=== PATIENT | female | born 1935 | race Caucasian/White ===

== ENCOUNTER → 2019-04-29 | Outpatient (CLI) | payer MEDICARE, OTHER, SELFPAY ==
[2019-04-25 08:46] VITALS: BMI 23.6
[2019-04-29 15:02] LABS: Hematocrit 37.1 % (37-47); Hemoglobin 11.5 g/dL (12.0-15.0); Mean Corpuscular Hgb 29.5 pg (27.0-32.0); Mean Corpuscular Volume 95.1 fL (81-99); Mean Platelet Vol. 12.8 fl (6.2-12.0); Platelet Count 234 K/mm3 (150-450); RBC Distribution Width CV 12.8 % (11.6-14.6); RBC Distribution Width SD 44.5 fl (35.1-43.9); White Blood Count 6.6 K/mm3 (4.4-11.0)
[2019-04-29 15:23] LABS: Anion Gap 6 (5-15); BUN 39 mg/dL (7-18); BUN/Creat Ratio 24.2 RATIO (10-20); Chloride 106 mmol/L (98-107); Creatinine, Serum 1.61 mg/dL (0.55-1.02); EST Glomerular Filtration Rate 33 mL/min (>60); Est Glom Filt Rate - Afr Amer 39 mL/min (>60); Glucose 76 mg/dL (74-106); Potassium 4.8 mmol/L (3.5-5.1); Sodium Level 139 mmol/L (136-145)
== END | disposition home or self-care (01) ==
LOC: LAB 13:23
PROVIDERS: Family Provider Preventive Medicine Occupational Medicine; PCP Preventive Medicine Occupational Medicine; Referring Provider Internal Medicine Cardiovascular Disease; Visit Provider Internal Medicine Cardiovascular Disease
DX: I48.0 Paroxysmal atrial fibrillation (principal); R55 Syncope and collapse
CPT/HCPCS: 36415; 80048; 85027

== ENCOUNTER 2019-05-05 06:43 | Day surgery (SDC) | payer MEDICARE, OTHER, SELFPAY ==
[2019-04-25 08:46] VITALS: BMI 23.6
[2019-05-02 09:30] VITALS: BMI 23.6
--- NOTE | 2019-05-08 09:59 | CL.IE_ITS ---
Patient: DARRYL MAYERS Study Date: 05/05/2019 Performing: Aakash Springer MD : [id number] Age: 83 Gender: female PROCEDURES PERFORMED [id number] OF LOOP RECORDER INDICATIONS Syncope PROCEDURE DETAILS The patient was brought to the Catheterization Lab in the postabsorptive nonsedated state. Infor med consent was obtained prior to the procedure. Local anesthetic was given subcutaneously to the le ft upper chest area with Lidocaine 2%. Incision was made to the left upper chest. ICM Reveal LINQ was inserted into the pocket. Steri-strips applied to Lt chest area. The patient tolerated the procedur e well. Estimated Blood Loss: 5 ml's IMPLANTED / EX-PLANTED DEVICES IMPLANTED DEVICE(S): ICM Reveal LINQ - Cue Worker: [employer], Model # Med[employer]onic Reveal LINQ [id number] Serial # [id number] DEVICE PARAMETERS CONCLUSIONS / RECOMMENDATIONS Device Conclusions: Successful implantation of a patient activated loop recorder. Device Recommendations: Follow up with Primary Care Physician PROCEDURE MEDICATIONS Versed 1 mg IV Oxygen: 2 L/min via nasal cannula Ancef 1 Gm IV @ 05/05/2019 08:10:53 Signed By Aakash Springer MD On 05/05/2019 08:38:50 Aakash Springer MD
== END 2019-05-05 10:00 | disposition home or self-care (01) ==
LOC: CLSP 06:45
PROVIDERS: Family Provider Preventive Medicine Occupational Medicine; PCP Preventive Medicine Occupational Medicine; Referring Provider Internal Medicine Cardiovascular Disease; Visit Provider Internal Medicine Cardiovascular Disease
DX: R55 Syncope and collapse (principal); I25.10 Atherosclerotic heart disease of native coronary artery without angina pectoris; I48.91 Unspecified atrial fibrillation; I13.0 Hypertensive heart and chronic kidney disease with heart failure and stage 1 through stage 4 chronic kidney disease, or unspecified chronic kidney disease; N18.9 Chronic kidney disease, unspecified; I50.42 Chronic combined systolic (congestive) and diastolic (congestive) heart failure; I27.21 Secondary pulmonary arterial hypertension; E78.5 Hyperlipidemia, unspecified; F32.9 Major depressive disorder, single episode, unspecified; K21.9 Gastro-esophageal reflux disease without esophagitis; E03.9 Hypothyroidism, unspecified; M19.90 Unspecified osteoarthritis, unspecified site; Z86.718 Personal history of other venous thrombosis and embolism; Z86.711 Personal history of pulmonary embolism; Z95.5 Presence of coronary angioplasty implant and graft; Z79.82 Long term (current) use of aspirin; Z79.899 Other long term (current) drug therapy
CPT/HCPCS: 33285; 99152; J7040

== ENCOUNTER → 2020-06-16 06:03 | Outpatient (CLI) | payer MEDICARE, OTHER, SELFPAY ==
[2020-06-03 13:55] VITALS: BMI 22.8
--- NOTE | 2020-06-16 06:05 | ECHOD_ITS ---
Version 2 Reason For Study: CHEST PAIN Procedure This was a 2D Doppler, Color Flow transthoracic echocardiogram. Exam performed in department. Left Ventricle Normal LV size. Sigmoid septum. Left ventricular systolic function is normal. The estimated ejection fraction is 65 %. Stage 1 diastolic dysfunction. No regional wall motion abnormalities noted. Right Ventricle Normal RV size. ICD or pacer leads identified within the right ventricle. Normal systolic function. Atria Normal left atrium. Normal right atrium. Mitral Valve Moderate focal mitral valve calcification of the anterior leaflet. There is moderate mitral annular calcification. Mild (1+) eccentric mitral valve insufficiency. Tricuspid Valve Normal tricuspid valve. Mild to moderate (1-2+) tricuspid valve insufficiency. Pulmonary artery systolic pressure is 50 mmHg. Moderate pulmonary hypertension. Aortic Valve Trisinus/trileaflet aortic valve. Mild (1+) aortic valve insufficiency. Pulmonic Valve Normal pulmonic valve. Great Vessels Normal aortic root. The pulmonary artery is normal size. Normal inferior vena cava. Pericardium/Pleural No pericardial effusion. MMode/2D Measurements & Calculations LVIDd: 3.9 cm IVSd: 0.89 cm Ao root diam: 3.4 cm LVIDs: 2.4 cm LVPWd: 0.91 cm RVDd: 3.9 cm FS: 37.8 % LAV(MOD-bp): 51.1 ml LVAd ap4: 18.4 cm2 SV(MOD-sp4): 31.1 ml LAV(MOD-bp) Indexed: 34.4 ml/m2 EDV(MOD-sp4): 48.3 ml LAV(MOD-sp2): 49.3 ml EDV(sp4-el): 50.2 ml LAV(MOD-sp4): 50.8 ml LVAs ap4: 10.0 cm2 ESV(MOD-sp4): 17.1 ml ESV(sp4-el): 17.3 ml EF(MOD-sp4): 64.5 % EF(sp4-el): 65.5 % SV(sp4-el): 32.9 ml LA A4 area: 18.9 cm2 LA dimension(2D): 3.3 cm RA A4 area: 16.5 cm2 Time Measurements MV dec time: 0.27 sec Doppler Measurements & Calculations MV E max eusebio: 67.5 cm/sec Lat Peak E' Eusebio: 5.2 cm/sec Med Peak E' Eusebio: 4.0 cm/sec MV A max eusebio: 115.0 cm/sec E/E' lat: 13.1 E/E' med: 16.9 MV E/A: 0.59 Ao V2 max: 127.0 cm/sec AI max eusebio: 478.3 cm/sec LV V1 max: 107.2 cm/sec Ao max P.4 mmHg AI max P.5 mmHg LV V1 max P.6 mmHg AI dec slope: 367.3 cm/sec2 AI P1/2t: 381.5 msec PA V2 max: 88.0 cm/sec TR max eusebio: 342.0 cm/sec TR max P.8 mmHg Interpretation Summary Pulmonary artery systolic pressure is 50 mmHg. Moderate pulmonary hypertension. Normal LV size. Left ventricular systolic function is normal. The estimated ejection fraction is 65 %. Stage 1 diastolic dysfunction. Mild (1+) aortic valve insufficiency. Ordering Physician: Renee Cole/Aakash Springer Referring Physician: REHAN LUCERO Performed By: Cheryl Quinteros RDCS
--- NOTE | 2020-06-16 17:35 | STRESSREP ---
Stress Test Report Pharmacologic myocardial perfusion stress test. 84-year-old lady with a history of coronary artery disease status post previous angioplasty and stenting of the left anterior descending artery. Stress protocol: Resting KG demonstrates normal sinus rhythm with a rate of 78 bpm premature atrial complexes are noted. 0.4 mg of regadenoson was infused per usual protocol followed by rapid intravenous saline flush injection continuous EKG monitoring was performed. The maximum heart rate attained was 100 bpm which was 72% of max impacted heart rate the maximum workload was 1 metabolic equivalent. At rest there were no ST or T wave changes noted to suggest abnormal flow reserve at peak infusion nonspecific ST-T wave changes were noted. The initial blood pressure was 182/78 with a final blood pressure 142/74 mmHg. Myocardial perfusion protocol. 11.4 mCi of technetium 99m sestamibi was injected at rest. 0.4 mg of regadenoson was infused per usual protocol. At peak infusion 30.1 mCi of technetium 99m sestamibi was injected stress images were obtained stress and rest images were reconstructed and compared in the short axis vertical and horizontal long axis. Gated images were also obtained Perfusion SPECT analysis: Review of the stress images demonstrate normal uptake of tracer noted in all areas of the myocardium the resting images similar demonstrate normal uptake of tracer noted in all areas of myocardium. No areas of reversibility are noted suggest ischemia no previous infarct is noted. Gated SPECT analysis: The gated ejection fraction is noted to be 80%. Conclusion: Normal pharmacologic myocardial perfusion stress test. Preserved ejection fraction.
== END ==
PROVIDERS: PCP Preventive Medicine Occupational Medicine; Referring Provider Physician Assistant Medical; Visit Provider Physician Assistant Medical
DX: R07.9 Chest pain, unspecified (principal); R06.00 Dyspnea, unspecified
CPT/HCPCS: 78452; 93017; 93306; A9500; A4216; J2785

== ENCOUNTER → 2020-08-24 08:23 | Outpatient (CLI) | payer MEDICARE, OTHER, SELFPAY ==
[2020-06-03 13:55] VITALS: BMI 22.8
--- NOTE | 2020-08-24 08:33 | RAD_ITS ---
STUDY: X-RAY - ESOPHAGUS (BARIUM SWALLOW) WITH FLUOROSCOPY REASON FOR EXAM: Female, 84 years old. Nausea/burning in esoph, known hiatl hernia, food getting stuck mid esoph TECHNIQUE: 20 view(s) of the esophagus were obtained following swallowing of barium. FLUOROSCOPY TIME (if supplied): (0:24) minutes/seconds COMPARISON: None. FINDINGS: There is no demonstrated esophageal foreign body. Tortuous appearance of the esophagus with the tertiary contractions. Large sliding hiatal hernia with gastroesophageal reflux. The patient ingested a 12 mm tablet of barium. The tablet is trapped at the gastroesophageal junction. There is atherosclerotic calcification of the aortic arch with tortuosity of the descending aorta. Normal visualized pulmonary parenchyma. There are diffuse degenerative changes of the visualized thoracic spine. RAD/Esophagus Dual Contrast IMPRESSION: Large sliding hiatal hernia with gastroesophageal reflux. The 12 mm tablet of barium is trapped at the gastroesophageal junction. Electronically Signed: Benito Levi, at 14:53 EST , Service support ,
== END ==
PROVIDERS: PCP Preventive Medicine Occupational Medicine; Referring Provider Preventive Medicine Occupational Medicine; Visit Provider Preventive Medicine Occupational Medicine
DX: R13.10 Dysphagia, unspecified (principal)
CPT/HCPCS: 74221

== ENCOUNTER → 2020-12-14 10:02 | Outpatient (CLI) | payer MEDICARE, OTHER, SELFPAY ==
[2020-06-03 13:55] VITALS: BMI 22.8
--- NOTE | 2020-12-14 10:05 | NM_ITS ---
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 WHOLE BODY 99m Tc MDP RADIONUCLIDE BONE SCINTIGRAPHY COMPARISON: None available FINDINGS: Following the intravenous administration of 28.0 mCi of 99m Tc MDP, whole body bone images reveal: 1. Increased radiopharmaceutical concentration is defined in the right anterolateral second rib the right posterior second-third ribs at the costovertebral junction, left posterior 11th rib. 2. Enhanced tracer distribution is demonstrated in the caudal aspect of the left sacroiliac joint, medial glenohumeral compartment of the left shoulder, sternoclavicular compartment of the right shoulder, patellofemoral and medial tibial compartment of the left knee, the left midfoot, right forefoot, patellofemoral compartment of the right knee. 3. The remaining skeletal structures are scintigraphically unremarkable with right renal image and urinary bladder activity identified. The left kidney is scintigraphically absent. Facilitated radiotracer uptake is observed in the presumably asymptomatic acetabular component of the left hip and femoral and tibial components of the right knee arthroplasties most consistent with normal postsurgical change. NM/Bone Scan Whole Body IMPRESSION: 1. The increase in radiotracer distribution defined in the bilateral ribs is most consistent with trauma-fracture. Plain film radiography correlation may be of benefit if not previously obtained. 2. Degenerative arthritis appears expressed in the left sacroiliac joint, bilateral shoulders, the patellofemoral and medial tibial compartment of the left knee, patellofemoral compartment of the right knee (in the absence of patellar hardware placement), the left midfoot and right forefoot. 3. Meticulous attention paid to the right proximal-distal ulna diaphysis demonstrates no evidence of abnormal increased radiopharmaceutical concentration on the current examination. Electronically Signed: Yomi Vaughan DO at 20:34 EDT Tel , Service support ,
== END ==
PROVIDERS: PCP Preventive Medicine Occupational Medicine; Referring Provider Preventive Medicine Occupational Medicine; Visit Provider Preventive Medicine Occupational Medicine
DX: R93.6 Abnormal findings on diagnostic imaging of limbs (principal)
CPT/HCPCS: 78306; A9503

== ENCOUNTER 2021-01-10 12:06 | Observation (INO) | payer MEDICARE, OTHER, SELFPAY ==
[2020-06-03 13:55] VITALS: BMI 22.8
[2021-01-10] VITALS (9 sets, daily range): BP systolic 96–182; BP diastolic 59–79; PULSE 54–95; RESP 14–20; TEMP 36.1–37.1; O2SAT 90–99; BMI 22.6; BMI 21.3
--- NOTE | 2021-01-10 12:21 | EKG12_ITS ---
Test Reason : SOB Blood Pressure : / mmHG Vent. Rate : 061 BPM Atrial Rate : 061 BPM P-R Int : 174 ms QRS Dur : 088 ms QT Int : 426 ms P-R-T Axes : 077 -07 046 degrees QTc Int : 428 ms Sinus rhythm with Premature atrial complexes Low voltage QRS (Limb Leads) Confirmed by CARMEN FERNANDES, RIGOBERTO ([id number]), continuity editor KAITLIN SMITH ([id number]) on 01/12/2021 12:53:29 PM Referred By: GENOVEVA Confirmed By:RIGOBERTO MORALES MD
--- NOTE | 2021-01-10 12:21 | RAD_ITS ---
STUDY: X-RAY CHEST REASON FOR EXAM: Female, 85 years old. Hypoxia. COVID 19. TECHNIQUE: Single frontal view of the chest. COMPARISON: 04/30/2012. FINDINGS: Mild hyperexpansion with diffuse interstitial pattern. No focal consolidation. There is no demonstrated pleural abnormality. Cardiomegaly with aortic tortuosity and calcification, unchanged. Normal mediastinum and kennedy. Normal visualized pulmonary arteries. Normal visualized thoracic spine. Normal visualized ribs, clavicles, and shoulders. There is no demonstrated abnormality of the visualized soft tissue structures of the upper abdomen. RAD/Chest 1 View (Portable) IMPRESSION: Cardiomegaly with hyperexpansion. Resolution of pleural effusions and interstitial edema present on the prior study. No acute finding. Electronically Signed: Chaz Peters MD at 14:05 EDT , Service support ,
--- NOTE | 2021-01-10 12:40 | EX.ED.DYSGE1 ---
HPI History of Present Illness Chief Complaint: Shortness of Breath Informant: patient and family Narrative Narrative: Patient is a 85-year-old female with a past medical history of CAD, CHF, A. fib, hypertension and hyperlipidemia who presents to the emergency department for shortness of breath, weakness. She was diagnosed with Covid approximately 1 week ago. She has had very poor oral intake. They have been monitoring her pulse oximeter at home and has been in the low 90s. They feel like her breathing has been getting worse. She denies any significant chest pain. She has not been nauseous or vomiting. No diarrhea. No urinary symptoms. No leg swelling or calf pain. She denies a smoking history. She did initially have a fever at the onset of symptoms but this has since resolved. She has been feeling very weak overall. [facility] Medical History (Updated 01/10/21 @ 16:[address] Julian Weber, ) Atherosclerosis of coronary artery of [place] heart without angina pectoris Bilateral pleural effusion Chronic combined systolic and diastolic CHF (congestive heart failure) Chronic renal insufficiency Deep vein thrombosis (DVT) (04/2012) Depression EE (eosinophilic esophagitis) Essential (primary) hypertension Fibromyalgia GERD (gastroesophageal reflux disease) Hiatal hernia Hyperlipidemia Hypothyroidism Non-rheumatic tricuspid valve insufficiency Osteoarthritis Paroxysmal atrial fibrillation Secondary pulmonary arterial hypertension Syncope Home Medications aspirin 81 mg tablet,delayed release 81 mg PO DAILY 04/24/19 [History Last Taken 01/10/21 09:30] calcium carbonate 600 mg calcium (1,500 mg) tablet 600 mg PO DAILY 04/24/19 [History Last Taken 01/10/21 09:30] cholecalciferol (vitamin D3) 125 mcg (5,000 unit) capsule 5,000 unit PO DAILY 04/24/19 [History Last Taken 01/10/21 09:30] hydrocodone 10 mg-acetaminophen 325 mg tablet 1 tab PO Q6H PRN 04/24/19 [History Last Taken 01/10/21 09:30] levothyroxine 50 mcg capsule 50 mcg PO DAILY 04/24/19 [History Last Taken 01/10/21 09:30] spironolactone 25 mg tablet 25 mg PO DAILY 04/24/19 [History Last Taken 01/10/21 09:30] vitamin B complex 1 tab PO DAILY 04/24/19 [History Last Taken 01/10/21 09:30] metoprolol tartrate 25 mg tablet 25 mg PO BID 04/25/19 [History Last Taken 01/10/21 09:30] nitroglycerin 0.4 mg sublingual tablet 0.4 mg SUBLINGUAL Q5-15M #30 tab 04/25/19 [Rx Last Taken Unknown] furosemide 40 mg tablet 40 mg PO BID tab 06/03/20 [History Last Taken 01/10/21 09:30] pantoprazole 40 mg PO DAILY 01/10/21 [History Last Taken 01/10/21 09:30] sertraline 50 mg PO DAILY 01/10/21 [History Last Taken Unknown] Allergy/AdvReac Type Severity Reaction Status Date / Time atorvastatin [From Lipitor] AdvReac myalgia Verified 01/10/21 12:10 oxycodone [From Percocet] AdvReac Unknown Verified 01/10/21 12:10 propoxyphene AdvReac Unknown Verified 01/10/21 12:10 [From Darvocet-N 100] tramadol [From Ultram] AdvReac Unknown Verified 01/10/21 12:10 Family History Father Heart disease CAD (coronary artery disease) Mother Heart disease Diabetes CVA (cerebral vascular accident) CAD (coronary artery disease) Surgical History History of appendectomy History of bowel resection History of cataract surgery History of coronary artery stent placement (05/31/12) History of hemiarthroplasty of left hip History of hysterectomy History of left heart catheterization (03/23/17) History of loop recorder (05/05/19) History of spinal surgery History of thoracentesis History of total knee arthroplasty Hx of cholecystectomy Social History (Updated 01/10/21 @ 14:[address] Ana Rosa Dominguez MD) household members: spouse Smoking Status: Never smoker alcohol intake: never substance use type: does not use ROS ROS ED Constitutional Constitutional ED: Reports malaise and weakness; Denies chills or fever(s) Eyes Eyes: Denies change in vision ENT ENT ED: Denies epistaxis or rhinorrhea Cardiovascular Cardiovascular: Denies chest pain or palpitations Respiratory/Chest Respiratory/Chest: Reports cough, dyspnea and dyspnea on exertion; Denies sputum Gastrointestinal Gastrointestinal: Denies abdominal pain, diarrhea, nausea or vomiting Genitourinary Genitourinary ED: Denies dysuria, hematuria or urinary frequency Musculoskeletal Musculoskeletal: Denies back pain or neck pain Integumentary Denies rash Neurologic Neurologic: Denies dizziness, headache(s) or weakness EXAM Physical Exam Const Vital Signs: 01/10/21 12:07 01/10/21 12:58 01/10/21 14:06 Temperature 98.8 F 98.8 F 98.4 F Temperature Source Oral Oral Oral Pulse Rate 69 57 L 56 L Respiratory Rate 18 17 14 Respiratory Effort Short of Breath Blood Pressure 96/59 L 116/67 112/60 Blood Pressure Mean 71 83 77 Pulse Ox 90 99 97 Oxygen Delivery Method Room Air Nasal Cannula Room Air Oxygen Flow Rate (L/min) 2 Positive cachectic and no apparent distress Constitutional Narrative: Ill-appearing General Appearance ED: cachectic Nutritional Appearance: cachectic HEENT Reports normocephalic Eyes PERRL and EOMs intact bilaterally Neck full ROM, No nuchal rigidity and supple Resp normal respiratory effort Effort and Inspection: Negative for uses accessory muscles Auscultation: rales and rhonchi Cardio regular rate and regular rhythm GI normal to inspection, nondistended, normoactive bowel sounds, soft to palpation, non-tender and non-distended no CVA tenderness Extremity normal to inspection and full ROM General Extremety ED: Negative for edema General Extremity: Negative for edema Psych mental status grossly normal Skin no rashes or lesions noted MDM MDM MDM Narrative Medical decision making narrative: Patient presents to the ED for general decline after being diagnosed with Covid 1 week ago. She has been hypoxic and they feel her breathing is getting worse. Upon arrival to the emergency department she is hypotensive and satting 90% on room air. She is not in any respiratory distress. Will check basic lab work as well as chest x-ray. She has not been eating or drinking very well. She does have significant comorbidities with this. Patient desats down to 90% and has very significant weakness getting out of bed. I do not feel patient is safe for discharge home. Lab work showed a leukopenia as well as mild elevation of her creatinine. Her troponin is negative. She is given a dose of Decadron and will be admitted to the hospital for further evaluation and management. She understands and is agreeable with this plan. Lab Data Labs: Laboratory Results - last 24 hr 01/10/21 01/10/21 01/10/21 12:40 12:40 12:40 WBC 3.2 L RBC 4.24 Hgb 12.9 Hct 38.7 MCV 91.3 MCH 30.4 MCHC 33.3 RDW Std Deviation 42.4 RDW Coeff of Gabi 12.7 Plt Count 155 MPV 12.0 Immature Gran % (Auto) 0.300 Neut % (Auto) 59.6 Lymph % (Auto) 25.6 [place] % (Auto) 13.6 H Eos % (Auto) 0.6 Baso % (Auto) 0.3 Absolute Neuts (auto) 1.9 L Absolute Lymphs (auto) 0.81 L Nucleated RBC % 0 Differential Comment D D-Dimer Quant (PE/DVT) Sodium 137 Potassium 3.9 Chloride 101 Carbon Dioxide 29.0 Anion Gap 7 BUN 30 H Creatinine 1.81 H Estim Creat Clear Calc 18.56 Est GFR (MDRD) Af Amer 34 L Est GFR (MDRD) Non-Af 28 L BUN/Creatinine Ratio 16.6 Glucose 93 Lactic Acid 0.8 Calcium 8.0 L Magnesium Ferritin Total Bilirubin 0.50 AST 34 ALT 11 L Alkaline Phosphatase 50 Lactate Dehydrogenase Troponin I < 0.015 C-React Prot Ext Range B-Natriuretic Peptide Total Protein 7.2 Albumin 3.5 Globulin 3.7 Albumin/Globulin Ratio 0.9 Procalcitonin 01/10/21 01/10/21 01/10/21 12:40 12:40 12:40 WBC RBC Hgb Hct MCV MCH MCHC RDW Std Deviation RDW Coeff of Gabi Plt Count MPV Immature Gran % (Auto) Neut % (Auto) Lymph % (Auto) [place] % (Auto) Eos % (Auto) Baso % (Auto) Absolute Neuts (auto) Absolute Lymphs (auto) Nucleated RBC % Differential Comment D-Dimer Quant (PE/DVT) 0.79 H* Sodium Potassium Chloride Carbon Dioxide Anion Gap BUN Creatinine Estim Creat Clear Calc Est GFR (MDRD) Af Amer Est GFR (MDRD) Non-Af BUN/Creatinine Ratio Glucose Lactic Acid Calcium Magnesium 1.9 Ferritin 202 Total Bilirubin AST ALT Alkaline Phosphatase Lactate Dehydrogenase 356 H Troponin I C-React Prot Ext Range 17.40 H B-Natriuretic Peptide 140.2 H Total Protein Albumin Globulin Albumin/Globulin Ratio Procalcitonin 01/10/21 12:40 WBC RBC Hgb Hct MCV MCH MCHC RDW Std Deviation RDW Coeff of Gabi Plt Count MPV Immature Gran % (Auto) Neut % (Auto) Lymph % (Auto) [place] % (Auto) Eos % (Auto) Baso % (Auto) Absolute Neuts (auto) Absolute Lymphs (auto) Nucleated RBC % Differential Comment D-Dimer Quant (PE/DVT) Sodium Potassium Chloride Carbon Dioxide Anion Gap BUN Creatinine Estim Creat Clear Calc Est GFR (MDRD) Af Amer Est GFR (MDRD) Non-Af BUN/Creatinine Ratio Glucose Lactic Acid Calcium Magnesium Ferritin Total Bilirubin AST ALT Alkaline Phosphatase Lactate Dehydrogenase Troponin I C-React Prot Ext Range B-Natriuretic Peptide Total Protein Albumin Globulin Albumin/Globulin Ratio Procalcitonin < 0.04 Radiography Chest X-Ray - ED: 1 View (Single view portable x-ray interpreted by myself. No obvious consolidations. Normal cardiac silhouette. Significant calcifications throughout. Agree with radiologist interpretation.) Diagnostic Testing: Radiology Impression Chest X-Ray 01/10/21 12:21 IMPRESSION: Cardiomegaly with hyperexpansion. Resolution of pleural effusions and interstitial edema present on the prior study. No acute finding. Electronically Signed: Chaz Peters MD at 14:05 EDT , Service support , EKG Initial EKG: Attestation: I personally reviewed and interpreted this EKG as follows: (Rate of 61 bpm and normal sinus rhythm with PACs present. Normal intervals. Normal axis. There are T wave inversions in the anterior leads. Mild ST elevation in lead I but no other leads. No ST depressions. Prior EKG for comparison was performed on Jun 03, 2020. This is similar in appearance.) Discharge Plan Dx/Rx/DC Orders Clinical Impression: COVID-19, Weakness generalized, Dyspnea Disposition Disposition: Acute Care Hospital [facility] Discharge Date/Time: 01/10/21 16:02
[2021-01-10 12:53] LABS: Absolute Lymphocyte Count 0.81 X10^3/uL (0.83-4.51); Absolute Neutrophil Count 1.9 X10^3/uL (2.0-7.7); Basophil# 0.01 X10^3/uL; Basophil% 0.3 % (0-1); Eosinophil# 0.02 X10^3/uL; Eosinophils% 0.6 % (0-5); Hematocrit 38.7 % (37-47); Hemoglobin 12.9 g/dL (12.0-15.0); Lymphocyte # 0.81 X10^3/ul (0.83-4.51); Lymphocyte % 25.6 % (19-41); Mean Corp Hgb Conc 33.3 g/dL (32-36); Mean Corpuscular Hgb 30.4 pg (27.0-32.0); Mean Corpuscular Volume 91.3 fL (81-99); Monocyte# 0.43 X10^3/uL; Monocyte% 13.6 % (0-10); NRBC Flagged by Analyzer 0 % (0-5); Neutrophil # 1.88 X10^3/uL (2.7-7.7); Neutrophil % 59.6 % (47-70); POSITIVE MORPHOLOGY YES; Platelet Count 155 K/mm3 (150-450); RBC Distribution Width CV 12.7 % (11.6-14.6); RBC Distribution Width SD 42.4 fl (35.1-43.9); Red Blood Count 4.24 M/mm3 (4.2-5.4); White Blood Count 3.2 K/mm3 (4.4-11.0)
[2021-01-10 13:00] LABS: Differential Indicated SCAN CRITERIA MET
[2021-01-10 13:16] LABS: Differential Comment D
[2021-01-10 13:19] LABS: BNP,B-Type NATRIURETIC PEPTIDE 140.2 pg/mL (0-100)
[2021-01-10 13:20] LABS: Lactic Acid 0.8 mmol/L (0.4-1.9)
[2021-01-10 13:23] LABS: ALB/GLOB Ratio 0.9 RATIO (0.9-2.4); AST(SGOT) 34 U/L (15-37); Alanine Aminotransfer ALT/SGPT 11 U/L (13-56); Albumin, Serum 3.5 g/dL (3.2-5.0); Alkaline Phosphatase 50 U/L (45-117); Anion Gap 7 (5-15); BUN 30 mg/dL (7-18); BUN/Creat Ratio 16.6 RATIO (10-20); Chloride 101 mmol/L (98-107); Creatinine, Serum 1.81 mg/dL (0.55-1.02); EST Glomerular Filtration Rate 28 mL/min (>60); Est Glom Filt Rate - Afr Amer 34 mL/min (>60); Estimated Creatinine Clearance 18.56 ml/min; Globulin 3.7 g/dL (2.2-4.2); Glucose 93 mg/dL (74-106); Potassium 3.9 mmol/L (3.5-5.1); Protein, Total 7.2 g/dL (6.4-8.2); Sodium Level 137 mmol/L (136-145)
--- NOTE | 2021-01-10 14:26 | PCM.HP.STD ---
HPI - General General Date of Admission: 01/10/21 Date of Service: 01/10/21 Chief Complaint: Fatigue, malaise, dyspnea, recent COVID diagnosis HPI Narrative The patient is an 85 y/o F w/ PMHx: Hypothyroidism, Anxiety and Depression, CKD stage III (baeslin Cr 1.6), Chronic Systolic and Diastolic CHF, PAF, CAD s/p PCI, Pulmonary HTN, HLD, HTN who presents to the [facility] ED on 01/10/21 with history of increasing fatigue, malaise and accompanying dyspnea with recent Covid diagnosis ([facility] [place], 12/31/20) to current presentation with poor oral intake and ongoing low oxygenation noted to be in the low 90s over the last week however she feels as though she is worsening prompting ED evaluation. She does note at the beginning she did have fevers and chills but has not had any since. She notes having inial onset of symptoms ~ 2 weeks ago with fever, chills, nausea, emesis, diarrhea, mild abdominal cramping diffuse discomfort, body aches, frontal headaches in addition to decreased sense of taste. Patient did not receive her Covid vaccination nor did her spouse and she notes this was secondary to having a family member who had the vaccine but still of Covid. Work-up in the ED included T 98.8, heart rate 69, BP initially 96/59 with repeat 116/67, respiratory rate 18, initially 90% on room air with improvement to 99% on 2 L nasal cannula, CBC with WBC 3.2, hemoglobin 12.9, platelet 155 with leukopenia and lymphopenia, CMP with BUN/creatinine 30/1.81, lactic acid 0.8, unremarkable hepatic profile otherwise, BNP 140.2, troponin less than 0.015, chest x-ray with cardiomegaly with hyperexpansion with no acute cardiopulmonary findings otherwise, EKG SR with unchanged non-specific ST-T changes without acute evidence of ischemia, blood culture x2 pending per ED. In the ED patient administered decadron 6 mg IV x 1. [facility] Medical History (Updated 01/10/21 @ 14:[address] Ana Rosa Dominguez MD) Atherosclerosis of coronary artery of [place] heart without angina pectoris Bilateral pleural effusion Chronic combined systolic and diastolic CHF (congestive heart failure) Chronic renal insufficiency Deep vein thrombosis (DVT) (04/2012) Depression EE (eosinophilic esophagitis) Essential (primary) hypertension Fibromyalgia GERD (gastroesophageal reflux disease) Hiatal hernia Hyperlipidemia Hypothyroidism Non-rheumatic tricuspid valve insufficiency Osteoarthritis Paroxysmal atrial fibrillation Secondary pulmonary arterial hypertension Syncope Home Medications aspirin 81 mg tablet,delayed release 81 mg PO DAILY 04/24/19 [History Last Taken 01/10/21 09:30] calcium carbonate 600 mg calcium (1,500 mg) tablet 600 mg PO DAILY 04/24/19 [History Last Taken 01/10/21 09:30] cholecalciferol (vitamin D3) 125 mcg (5,000 unit) capsule 5,000 unit PO DAILY 04/24/19 [History Last Taken 01/10/21 09:30] hydrocodone 10 mg-acetaminophen 325 mg tablet 1 tab PO Q6H PRN 04/24/19 [History Last Taken 01/10/21 09:30] levothyroxine 50 mcg capsule 50 mcg PO DAILY 04/24/19 [History Last Taken 01/10/21 09:30] spironolactone 25 mg tablet 25 mg PO DAILY 04/24/19 [History Last Taken 01/10/21 09:30] vitamin B complex 1 tab PO DAILY 04/24/19 [History Last Taken 01/10/21 09:30] metoprolol tartrate 25 mg tablet 25 mg PO BID 04/25/19 [History Last Taken 01/10/21 09:30] nitroglycerin 0.4 mg sublingual tablet 0.4 mg SUBLINGUAL Q5-15M #30 tab 04/25/19 [Rx Last Taken Unknown] furosemide 40 mg tablet 40 mg PO BID tab 06/03/20 [History Last Taken 01/10/21 09:30] pantoprazole 40 mg PO DAILY 01/10/21 [History Last Taken 01/10/21 09:30] sertraline 50 mg PO DAILY 01/10/21 [History Last Taken Unknown] Allergy/AdvReac Type Severity Reaction Status Date / Time atorvastatin [From Lipitor] AdvReac myalgia Verified 01/10/21 12:10 oxycodone [From Percocet] AdvReac Unknown Verified 01/10/21 12:10 propoxyphene AdvReac Unknown Verified 01/10/21 12:10 [From Darvocet-N 100] tramadol [From Ultram] AdvReac Unknown Verified 01/10/21 12:10 Family History Father Heart disease CAD (coronary artery disease) Mother Heart disease Diabetes CVA (cerebral vascular accident) CAD (coronary artery disease) Surgical History History of appendectomy History of bowel resection History of cataract surgery History of coronary artery stent placement (05/31/12) History of hemiarthroplasty of left hip History of hysterectomy History of left heart catheterization (03/23/17) History of loop recorder (05/05/19) History of spinal surgery History of thoracentesis History of total knee arthroplasty Hx of cholecystectomy Social History (Updated 01/10/21 @ 14:[address] Ana Rosa Dominguez MD) household members: spouse Smoking Status: Never smoker alcohol intake: never substance use type: does not use ROS ROS Narrative Admission Review of Systems: CONSTITUTIONAL: No weight loss, fever, chills, + weakness or fatigue. HEENT: Eyes: No visual loss, blurred vision, double vision or yellow sclerae. Ears, Nose, Throat: No hearing loss, sneezing, congestion, runny nose or sore throat. SKIN: No rash or itching, lesions, wounds. CARDIOVASCULAR: No chest pain, chest pressure or chest discomfort, palpitations, edema, orthopnea, syncopal events. RESPIRATORY: + shortness of breath, cough without marked sputum, No wheezing, hemoptysis. GASTROINTESTINAL: + anorexia, nausea, vomiting, diarrhea, abdominal pain, No melena, BRBPR. GENITOURINARY: No dysuria, frequency, urgency or retention. NEUROLOGICAL: No headache, dizziness, syncope, paralysis, ataxia, numbness or tingling in the extremities, focal weakness, change in bowel or bladder control, seizure. MUSCULOSKELETAL: + Muscle pain, back pain, joint pain or stiffness. HEMATOLOGIC: + anemia, bleeding or bruising. LYMPHATICS: No enlarged nodes. No history of splenectomy. PSYCHIATRIC: + history of depression or anxiety. ENDOCRINOLOGIC: No reports of sweating, cold or heat intolerance. No polyuria or polydipsia. ALLERGIES: No history of asthma, hives, eczema or rhinitis. Vital Signs Vital Signs Vital Signs: 01/10/21 12:07 01/10/21 12:58 01/10/21 14:06 Temperature 98.8 F 98.8 F 98.4 F Temperature Source Oral Oral Oral Pulse Rate 69 57 L 56 L Respiratory Rate 18 17 14 Respiratory Effort Short of Breath Blood Pressure 96/59 L 116/67 112/60 Blood Pressure Mean 71 83 77 Pulse Ox 90 99 97 Oxygen Delivery Method Room Air Nasal Cannula Room Air Oxygen Flow Rate (L/min) 2 Weight Weight: 112 lb Body Mass Index (BMI) 22.6 Physical Exam Narrative Physical Examination: General: awake, alert, oriented x 3 and cooperative, seated upright in the ED bed in no apparent distress, fatigued appearing. Skin: normal color, normal turgor, no icterus, no cyanosis except occasional various staged ecchymoses. HEENT: AT/NC, EOMI, PERRLA, mildly dry MM, no carotid bruits or JVD noted. Lungs: Diffusely diminished breath sounds, no evidence of respiratory distress, moderate effort, no rales, ronchi or wheezing. Heart: Regular rate and rhythm; no gallop, rub audible. Abdomen: soft, thin habitus, NTTP, ND, normal BS, no HSM. Extremities: no cyanosis, clubbing, or edema. Neurological: patient awake, alert, oriented as noted, cognitive function intact; pupils equally reactive to light and accommodation, cranial nerves II-XII grossly normal, moving all 4 extremities, no focal deficits, strength severely global decrease secondary to acute presentation as noted. Psychiatric: affect appears fatigued otherwise normal, no acute evidence of depressive or anxiety feelings. Lab / Micro Data Result Diagrams: 01/10/21 12:40 01/10/21 12:40 Labs: Laboratory Results - last 24 hr 01/10/21 01/10/21 01/10/21 12:40 12:40 12:40 WBC 3.2 L RBC 4.24 Hgb 12.9 Hct 38.7 MCV 91.3 MCH 30.4 MCHC 33.3 RDW Std Deviation 42.4 RDW Coeff of Gabi 12.7 Plt Count 155 MPV 12.0 Immature Gran % (Auto) 0.300 Neut % (Auto) 59.6 Lymph % (Auto) 25.6 [place] % (Auto) 13.6 H Eos % (Auto) 0.6 Baso % (Auto) 0.3 Absolute Neuts (auto) 1.9 L Absolute Lymphs (auto) 0.81 L Nucleated RBC % 0 Differential Comment D Sodium 137 Potassium 3.9 Chloride 101 Carbon Dioxide 29.0 Anion Gap 7 BUN 30 H Creatinine 1.81 H Estim Creat Clear Calc 18.56 Est GFR (MDRD) Af Amer 34 L Est GFR (MDRD) Non-Af 28 L BUN/Creatinine Ratio 16.6 Glucose 93 Lactic Acid 0.8 Calcium 8.0 L Total Bilirubin 0.50 AST 34 ALT 11 L Alkaline Phosphatase 50 Troponin I < 0.015 B-Natriuretic Peptide Total Protein 7.2 Albumin 3.5 Globulin 3.7 Albumin/Globulin Ratio 0.9 01/10/21 12:40 WBC RBC Hgb Hct MCV MCH MCHC RDW Std Deviation RDW Coeff of Gabi Plt Count MPV Immature Gran % (Auto) Neut % (Auto) Lymph % (Auto) [place] % (Auto) Eos % (Auto) Baso % (Auto) Absolute Neuts (auto) Absolute Lymphs (auto) Nucleated RBC % Differential Comment Sodium Potassium Chloride Carbon Dioxide Anion Gap BUN Creatinine Estim Creat Clear Calc Est GFR (MDRD) Af Amer Est GFR (MDRD) Non-Af BUN/Creatinine Ratio Glucose Lactic Acid Calcium Total Bilirubin AST ALT Alkaline Phosphatase Troponin I B-Natriuretic Peptide 140.2 H Total Protein Albumin Globulin Albumin/Globulin Ratio Radiology Impression Chest X-Ray 01/10/21 12:21 IMPRESSION: Cardiomegaly with hyperexpansion. Resolution of pleural effusions and interstitial edema present on the prior study. No acute finding. Electronically Signed: Chaz Peters MD at 14:05 EDT , Service support , Assessment & Plan Assessment/Plan (1) COVID-19: (2) Hypoxia: PLAN: The patient is an 85 y/o F w/ PMHx: Hypothyroidism, Anxiety and Depression, CKD stage III (baeslin Cr 1.6), Chronic Systolic and Diastolic CHF, PAF, CAD s/p PCI, Pulmonary HTN, HLD, HTN who presents to the [facility] ED on 01/10/21 with history of increasing fatigue, malaise and accompanying dyspnea with recent Covid diagnosis ([facility] [place], 12/31/20) to current presentation with poor oral intake and ongoing low oxygenation noted to be in the low 90s over the last week however she feels as though she is worsening prompting ED evaluation. 1. Acute Hypoxia and FTT Adult secondary to Acute Viral Syndrome, COVID-19: Will admit to the COVID unit, will maintain on oxygen with wean as tolerated to room air, PRN albuterol, HOB, IS parameters w/ pending sputum cultures, respiratory viral panel and urine antigens, will obtain D-dimer, procalcitonin, CRP, CPK, Ferritin, LDH, trop and BNP, continue supportive care including q 2 hour turning including prone given no prone bed availability and judicious hydration, closely monitor for worsening status for ARDS and multiorgan failure, will initiate and continue IV decadron x 10 doses, given presentation with testing 10 days prior not candidate for remdesivir. PT, OT, case management consulted as patient will likely need residential facility placement given severe debility. 2. Chronic CHF, reportedly systolic and diastolic combined: Appears compensated, 06/16/20 ECHO w/ PASP 50 mmHg with evidence of moderate pulmonary hypertension, normal LV size, normal LV systolic function, EF 65%, stage I diastolic dysfunction, mild GIOVANNI. 06/16/20 stress testing noted to be a normal phonological myocardial perfusion stress testing with preserved EF. We will continue aspirin, metoprolol, spironolactone, lasix therapy with hold parameters as needed, not on statin nor WHIT inhibitor/ARB. 3. CAD: Status post PCI, continue aspirin, metoprolol, not on statin therapy nor WHIT inhibitor/ARB possibly secondary to underlying chronic kidney disease. 4. PAF: We will continue patient home metoprolol regimen, not anticoagulated outpatient. 5. Hypertension: Continue home regimen including metoprolol, spironolactone, Lasix with hold parameters, PRN hydralazine. 6. Hyperlipidemia: Not on regimen, defer to outpatient. 7. Chronic Kidney Disease Stage III, unclear subtype: Admission BUN/Cr 30/1.81, baseline renal function 1.6, repeat BMP in AM. 8. Anxiety and depression: We will continue patient home sertraline regimen. 9. Hypothyroidism: Continue home synthroid regimen. 10. DVT prophylaxis: SCDs, Lovenox. 11. CODE status: Patient LAUREEN is her daughter and living will is currently in place. Patient's grandson is present and is the first person to contact. Discussed CODE status at length including difference between FULL code, DNR-CCA and DNR-CC status. Following discussions about the differences in these status, requested Full Code status. Advanced Care Planning Face to Face Time: 16 minutes. Visit Charges OBSV E&M: 84613 Initial observation care L3 Procedures Hospitalists Procedures: 28784 Advncd Care Plan 30 Min
--- NOTE | 2021-01-10 14:43 | NURSING ---
OBS COVID, HYPOXIA WHITE
--- NOTE | 2021-01-10 14:48 | ED.RN ---
PT AMBULATED IN ROOM. P.O. AT 90 AT THE LOWEST. O2 REMOVED FOR TEST WALK. DR CR IN ROOM
--- NOTE | 2021-01-10 14:59 | NURSING ---
ICU 2
[2021-01-10] MEDS: dexAMETHasone 4 MG/ML Vial 6 MG IV (15:07)
[2021-01-10 15:41] LABS: D-Dimer Quantitative (DVT/PE) 0.79 FEU/ug/m (0.27-0.49)
[2021-01-10 15:44] LABS: Ferritin 202 ng/mL (8-252); LDH 356 U/L (84-246); Magnesium 1.9 mg/dL (1.6-2.6)
[2021-01-10 15:51] LABS: Procalcitonin < 0.04 ng/mL (0.00-0.09)
[2021-01-10] MEDS: 0.9% Normal Saline 1,000 ML 100 ML IV (16:30)
[2021-01-10] MEDS: Furosemide 40 MG Tablet PO (18:20)
[2021-01-10] MEDS: Enoxaparin 30 MG/0.3 ML Syringe SC (18:20)
[2021-01-10] MEDS: Metoprolol Tartrate 25 MG Tablet PO (21:09)
[2021-01-10] MEDS: HYDROcodone Bitartrate/Apap 5/325 Tablet PO (21:10)
[2021-01-11] VITALS (7 sets, daily range): BP systolic 130–169; BP diastolic 54–73; PULSE 68–86; RESP 14–18; TEMP 36.1–37.1; O2SAT 94–99
[2021-01-11] MEDS: HYDROcodone Bitartrate/Apap 5/325 Tablet PO ×2 (04:29→20:03)
[2021-01-11 04:45] LABS: Absolute Lymphocyte Count 0.54 X10^3/uL (0.83-4.51); Absolute Neutrophil Count 0.8 X10^3/uL (2.0-7.7); Hematocrit 38.2 % (37-47); Hemoglobin 12.5 g/dL (12.0-15.0); Lymphocyte # 0.54 X10^3/ul (0.83-4.51); Lymphocyte % 34.4 % (19-41); Mean Corp Hgb Conc 32.7 g/dL (32-36); Mean Corpuscular Hgb 30.2 pg (27.0-32.0); Mean Corpuscular Volume 92.3 fL (81-99); Mean Platelet Vol. 12.2 fl (6.2-12.0); Monocyte# 0.17 X10^3/uL; Monocyte% 10.8 % (0-10); NRBC Flagged by Analyzer 0 % (0-5); Neutrophil # 0.84 X10^3/uL (2.7-7.7); Neutrophil % 53.5 % (47-70); POSITIVE DIFFERENTIAL YES; POSITIVE MORPHOLOGY YES; Platelet Count 171 K/mm3 (150-450); RBC Distribution Width CV 12.6 % (11.6-14.6); RBC Distribution Width SD 42.5 fl (35.1-43.9); Red Blood Count 4.14 M/mm3 (4.2-5.4); White Blood Count 1.6 K/mm3 (4.4-11.0)
[2021-01-11 04:46] LABS: Differential Indicated SCAN CRITERIA MET
--- NOTE | 2021-01-11 07:15 | PCM.PN.HOSP ---
Subjective Subjective Patient is an 85-year-old lady recently diagnosed with SARS-CoV-2 infection whose is on admission, who presented to the emergency department with increasing shortness of breath. Admitted for subsequent inpatient management. Objective Data Objective Data Vital Signs: Vital Signs Temp Pulse Resp BP Pulse Ox 97.0 F L 71 14 155/73 H 94 01/11/21 02:00 01/11/21 02:00 01/11/21 02:00 01/11/21 02:00 01/11/21 02:00 Oxygen Flow Rate (L/min) 2 Oxygen Delivery Method Room Air Weight: 48.1 kg Body Mass Index (BMI) 21.3 Intake & Output: Intake and Output for Last 24 Hours 01/09/21 01/10/21 01/11/21 23:59 23:59 23:59 Intake Total 1400 / 1400 Output Total 1050 / 1050 Balance 350 / 350 Lab / Micro Data Result Diagrams: 01/11/21 04:25 01/10/21 12:40 Labs: Microbiology Past 72 Hours 01/10/21 17:57 Mucosa - Nose Respiratory Panel (PCR) - Final 01/10/21 20:20 Urine, Clean Catch Legionella Antigen - Final 01/10/21 20:20 Urine, Clean Catch Streptococcus pneumoniae Antigen (M - Final Laboratory Results 01/10/21 12:40: WBC 3.2 L, RBC 4.24, Hgb 12.9, Hct 38.7, MCV 91.3, MCH 30.4, MCHC 33.3, RDW Std Deviation 42.4, RDW Coeff of Gabi 12.7, Plt Count 155, MPV 12.0, Immature Gran % (Auto) 0.300, Neut % (Auto) 59.6, Lymph % (Auto) 25.6, [place] % (Auto) 13.6 H, Eos % (Auto) 0.6, Baso % (Auto) 0.3, Absolute Neuts (auto) 1.9 L, Absolute Lymphs (auto) 0.81 L, Nucleated RBC % 0, Differential Comment D 01/10/21 12:40: Sodium 137, Potassium 3.9, Chloride 101, Carbon Dioxide 29.0, Anion Gap 7, BUN 30 H, Creatinine 1.81 H, Estim Creat Clear Calc 18.56, Est GFR (MDRD) Af Amer 34 L, Est GFR (MDRD) Non-Af 28 L, BUN/Creatinine Ratio 16.6, Glucose 93, Calcium 8.0 L, Total Bilirubin 0.50, AST 34, ALT 11 L, Alkaline Phosphatase 50, Troponin I < 0.015, Total Protein 7.2, Albumin 3.5, Globulin 3.7, Albumin/Globulin Ratio 0.9 01/10/21 12:40: Lactic Acid 0.8 01/10/21 12:40: B-Natriuretic Peptide 140.2 H 01/10/21 12:40: D-Dimer Quant (PE/DVT) 0.79 H* 01/10/21 12:40: Magnesium 1.9, Ferritin 202, Lactate Dehydrogenase 356 H, C-React Prot Ext Range 17.40 H 01/10/21 12:40: Procalcitonin < 0.04 01/11/21 04:25: WBC 1.6 L, RBC 4.14 L, Hgb 12.5, Hct 38.2, MCV 92.3, MCH 30.2, MCHC 32.7, RDW Std Deviation 42.5, RDW Coeff of Gabi 12.6, Plt Count 171, MPV 12.2 H, Immature Gran % (Auto) 1.300 H, Neut % (Auto) 53.5, Lymph % (Auto) 34.4, [place] % (Auto) 10.8 H, Eos % (Auto) 0.0, Baso % (Auto) 0.0, Absolute Neuts (auto) 0.8 L, Absolute Lymphs (auto) 0.54 L, Nucleated RBC % 0, Diff Path Review December Micro: Microbiology 01/10/21 17:57 Mucosa - Nose Respiratory Panel (PCR) - Final 01/10/21 20:20 Urine, Clean Catch Legionella Antigen - Final 01/10/21 20:20 Urine, Clean Catch Streptococcus pneumoniae Antigen (M - Final Radiography Diagnostic Testing: Radiology Impression Chest X-Ray 01/10/21 12:21 IMPRESSION: Cardiomegaly with hyperexpansion. Resolution of pleural effusions and interstitial edema present on the prior study. No acute finding. Electronically Signed: Chaz Peters MD at 14:05 EDT , Service support , Physical Exam Narrative GENERAL: cooperative HEENT: Atraumatic; EYES; Anicteric, Normal Conjunctiva NECK; supple, normal thyroid, RESPIRATORY: Diminished to auscultation CARDIOVASCULAR: Regular S1 S2, GI: soft, normoactive bowel sounds, : No Renal angle tenderness; EXTREMITIES: No edema, no clubbing, MUSCULOSKELETAL: no muscle waisting NEURO: Awake; no lateralizing signs. SKIN: No Rash PSYCH; Flat affect Assessment & Plan Assessment/Plan (1) COVID-19: (2) Hypoxia: PLAN: Patient is an 85-year-old lady recently diagnosed with SARS-CoV-2 infection whose is on admission, who presented to the emergency department with increasing shortness of breath. Admitted for subsequent inpatient management. 1. SARS-CoV-2 infection ?Patient chest x-ray did not reveal any acute findings. However due to her increasing dyspnea and fatigue she was admitted for subsequent inpatient management. Placed on supplemental oxygen and incentive spirometry 2. Physical deconditioning - Requested for PT OT eval and high school social studies teacher to assist with discharge planning 3. Chronic congestive heart failure with preserved ejection fraction ?Patient at baseline did continue with her home diuretics 4. Chronic kidney disease stage III ?Patient kidney function at baseline 5. Hypothyroidism - Patient is on levothyroxine home dose continued 6. Coronary artery disease ?With previous PCI 7. Pulmonary hypertension ?Symptomatic treatment 8. Paroxysmal A. fib ?Rate controlled on metoprolol 9. GERD ?Patient is on PPI 10. Depression with anxiety ?Patient is on sertraline 11. DVT prophylaxis - SCDs, Lovenox. Visit Charges Inpatient E&M: 60430 Subs Hosp L2
[2021-01-11] MEDS: Pantoprazole Sodium 40 MG Tablet PO ×2 (08:08→08:10)
[2021-01-11] MEDS: Calcium (Elemental) 500 MG Tablet PO (08:08)
[2021-01-11] MEDS: Metoprolol Tartrate 25 MG Tablet PO ×2 (08:09→20:03)
[2021-01-11] MEDS: Levothyroxine 50 MCG Tablet PO (08:10)
[2021-01-11] MEDS: Enoxaparin 30 MG/0.3 ML Syringe SC (08:10)
[2021-01-11] MEDS: Aspirin E.C. 81 MG Tablet PO (08:10)
[2021-01-11] MEDS: dexAMETHasone 4 MG/ML Vial 6 MG IV (08:10)
[2021-01-11] MEDS: Sertraline 50 MG Tablet PO (08:10)
[2021-01-11] MEDS: Furosemide 40 MG Tablet PO ×2 (08:10→17:35)
[2021-01-11] MEDS: Spironolactone 25 MG Tablet PO (08:10)
[2021-01-11 10:18] LABS: Absolute Lymphocyte Count 0.52 X10^3/uL (0.83-4.51); Absolute Neutrophil Count 1.6 X10^3/uL (2.0-7.7); Basophil# 0.01 X10^3/uL; Basophil% 0.4 % (0-1); Hematocrit 37.2 % (37-47); Hemoglobin 12.1 g/dL (12.0-15.0); Lymphocyte # 0.52 X10^3/ul (0.83-4.51); Lymphocyte % 22.7 % (19-41); Mean Corp Hgb Conc 32.5 g/dL (32-36); Mean Corpuscular Hgb 29.7 pg (27.0-32.0); Mean Corpuscular Volume 91.4 fL (81-99); Mean Platelet Vol. 11.8 fl (6.2-12.0); Monocyte# 0.13 X10^3/uL; Monocyte% 5.7 % (0-10); NRBC Flagged by Analyzer 0 % (0-5); Neutrophil # 1.62 X10^3/uL (2.7-7.7); Neutrophil % 70.8 % (47-70); POSITIVE DIFFERENTIAL YES; POSITIVE MORPHOLOGY YES; Platelet Count 164 K/mm3 (150-450); RBC Distribution Width CV 12.5 % (11.6-14.6); RBC Distribution Width SD 41.4 fl (35.1-43.9); Red Blood Count 4.07 M/mm3 (4.2-5.4); White Blood Count 2.3 K/mm3 (4.4-11.0)
[2021-01-11 10:19] LABS: Differential Indicated SCAN CRITERIA MET
[2021-01-11 10:59] LABS: AST(SGOT) 17 U/L (15-37); Alanine Aminotransfer ALT/SGPT 11 U/L (13-56); Albumin, Serum 3.2 g/dL (3.2-5.0); Alkaline Phosphatase 47 U/L (45-117); Anion Gap 8 (5-15); BUN 27 mg/dL (7-18); BUN/Creat Ratio 17.6 RATIO (10-20); Calcium,Total 7.8 mg/dL (8.5-10.1); Chloride 104 mmol/L (98-107); Creatinine, Serum 1.53 mg/dL (0.55-1.02); EST Glomerular Filtration Rate 34 mL/min (>60); Est Glom Filt Rate - Afr Amer 42 mL/min (>60); Estimated Creatinine Clearance 20.78 ml/min; Globulin 3.3 g/dL (2.2-4.2); Glucose 165 mg/dL (74-106); Potassium 3.4 mmol/L (3.5-5.1); Protein, Total 6.5 g/dL (6.4-8.2); Sodium Level 140 mmol/L (136-145)
--- NOTE | 2021-01-11 11:07 | CASEMGMT ---
MALCOM MILNER Assessment: TC to pt room for initial transition planning/care coordination assessment. MALCOM MILNER introduced self and role at [facility], pt voices understanding and consents to assessment. Pt is A/O x4 and answers all questions appropriately at this time. Care providers, pharmacy, and demographics verified/updated. Admitting Dx: Covid, hypoxia PCP: Catie Specialists: Gian, cardio; Rojas,gastro Preferred Pharmacy: [facility] Insurance: [facility], [employer] Prescription Benefit: yes LW/HPOA: Pt states she has a LW/DPOA and her DPOA is her Guy Hicks. She is aware that it is not on file at [facility] and it may be brought in at any time to be scanned in to the chart. Pt states it is out and on her kitchen table at home. LNOK: Guy Hicks, ; Ghislaine Igor, dtr Living Arrangements: Pt lives in a single story house with 4 steps to enter with her . Pt states she was I in ADL's but now needs some assistance as she is weak. Transportation: Pt states she has not driven in years. States her daughters take her to medical appts. Denies concerns with transportation. DME/HHC/SNF: Pt has a cane, walker and states a shower was made just for her. She has had previous HHC but is unsure who it was through. Pt has been in [facility] and [facility]. Discussed with pt the possibility of needing home O2 and gave a list of local in network DME companies. Pt preferred provider is [facility]. Pt states her dtr Ghislaine is recovering from COVID as well, and her is in the hospital with the same. Pt states she does have another dtr available to get groceries, supplies for pt. Pt wishes to return home. She has not yet worked with therapy but states she feels weak. Pt is open to having therapy once dc'd from the hospital if it is recommended. She does want to go home. Pt states no concerns with going home at time of dc. Pt states no further concerns/needs. CM to follow O2 and therapy. Advised pt to ask CM if any further question/concerns/needs arise, voices understanding. Pt Goal: Home Plan: Home, TBD pending therapy, follow O2. 1140- RN ANNIA notified that pt is to be dc'd. TC to pt dtr Ghislaine to verify there is family who is able to check in on patient. She states it was her understanding that pt was to go to Rehab after hospitalization since she is so weak. She states her sister Kristin could stay with patient and her son, pt grandgabby Geiger could assist pt with groceries, etc. MALCOM MILNER discussed with pt nurse Andrea who is not aware of this plan. MALCOM MILNER to follow after therapy nancy pt.
[2021-01-11 12:13] LABS: Pathologist Review Reviewed
[2021-01-11] MEDS: Ondansetron 4 MG/2 ML Vial IV ×2 (13:33→20:03)
[2021-01-11] MEDS: 0.9% Saline Lock 10 ML Syringe IV (13:33)
--- NOTE | 2021-01-11 15:36 | CASEMGMT ---
MALCOM MILNER called pt room to discuss BAI form with patient. MALCOM MILNER explained BAI form, patient voiced understanding. Pt consented for her signature on the form, witnessed by Myles العراقي and filed in chart. Pt provided with a copy of signed BAI form. Patient had no further questions or concerns at this time.
--- NOTE | 2021-01-11 16:13 | CASEMGMT ---
Addendum entered by Jeannette Winston 01/11/21 16:21: Dtr states she does not have a second choice preference. [facility] would not be able to see pt until Sunday. TC to [place], spoke with Benja. Referral accepted. Faxed at this time. Original Note: Therapy is recommending pt have PT and OT at home. TC to pt room, no answer. TC to pt dtr Ghislaine to discuss. Provided her a list of [facility] providers including quality and resource use data and consistent with the patient?s preferred geographic region, medical needs, and insurance network verbally over the phone. The patient?s dtr preferred provider is [facility]. TC yury Chand intake at [facility] and made referral. Awaiting acceptance. Dtr states she gives permission for her son Juanjo to handle matters and she would like him to be called when pt dc's as he will be arranging pt coming home.
[2021-01-12 02:00] VITALS: BP 169/65; PULSE 68; RESP 16; TEMP 36.6; O2SAT 99
[2021-01-12] MEDS: 0.9% Saline Lock 10 ML Syringe IV (04:17)
[2021-01-12 04:27] LABS: Absolute Lymphocyte Count 1.08 X10^3/uL (0.83-4.51); Absolute Neutrophil Count 3.3 X10^3/uL (2.0-7.7); Basophil# 0.01 X10^3/uL; Basophil% 0.2 % (0-1); Hematocrit 37.6 % (37-47); Hemoglobin 12.5 g/dL (12.0-15.0); Lymphocyte # 1.08 X10^3/ul (0.83-4.51); Lymphocyte % 22.4 % (19-41); Mean Corp Hgb Conc 33.2 g/dL (32-36); Mean Corpuscular Hgb 30.4 pg (27.0-32.0); Mean Corpuscular Volume 91.5 fL (81-99); Monocyte# 0.45 X10^3/uL; Monocyte% 9.3 % (0-10); NRBC Flagged by Analyzer 0 % (0-5); Neutrophil # 3.28 X10^3/uL (2.7-7.7); Neutrophil % 67.9 % (47-70); POSITIVE MORPHOLOGY YES; Platelet Count 196 K/mm3 (150-450); RBC Distribution Width CV 12.5 % (11.6-14.6); RBC Distribution Width SD 41.6 fl (35.1-43.9); Red Blood Count 4.11 M/mm3 (4.2-5.4); White Blood Count 4.8 K/mm3 (4.4-11.0)
[2021-01-12 04:30] LABS: Differential Indicated SCAN CRITERIA MET
[2021-01-12 04:48] LABS: AST(SGOT) 22 U/L (15-37); Alanine Aminotransfer ALT/SGPT 11 U/L (13-56); Albumin, Serum 3.3 g/dL (3.2-5.0); Alkaline Phosphatase 45 U/L (45-117); Anion Gap 7 (5-15); BUN 30 mg/dL (7-18); BUN/Creat Ratio 20.8 RATIO (10-20); Bilirubin, Direct 0.14 mg/dL (0.00-0.30); Calcium,Total 8.2 mg/dL (8.5-10.1); Chloride 103 mmol/L (98-107); Creatinine, Serum 1.44 mg/dL (0.55-1.02); EST Glomerular Filtration Rate 37 mL/min (>60); Est Glom Filt Rate - Afr Amer 45 mL/min (>60); Estimated Creatinine Clearance 22.08 ml/min; Globulin 3.3 g/dL (2.2-4.2); Glucose 91 mg/dL (74-106); Magnesium 1.9 mg/dL (1.6-2.6); Potassium 3.7 mmol/L (3.5-5.1); Protein, Total 6.6 g/dL (6.4-8.2); Sodium Level 139 mmol/L (136-145)
[2021-01-12 07:17] VITALS: O2SAT 98
--- NOTE | 2021-01-12 07:22 | DS.PCM_ITS ---
Providers Date of Admission: 01/10/21 Primary Care Physician: Dr. Charles Haddad, DO Reason For Visit: COVID, HYPOXIA Diagnosis Discharge Diagnosis (1) COVID-19: Status: Acute Code(s): U07.1 - COVID-19 (2) Hypoxia: Status: Acute Code(s): R09.02 - Hypoxemia Medications at Discharge Home Medications aspirin 81 mg tablet,delayed release 81 mg PO DAILY 04/24/19 calcium carbonate 600 mg calcium (1,500 mg) tablet 600 mg PO DAILY 04/24/19 cholecalciferol (vitamin D3) 125 mcg (5,000 unit) capsule 5,000 unit PO DAILY 04/24/19 hydrocodone 10 mg-acetaminophen 325 mg tablet 1 tab PO Q6H PRN 04/24/19 levothyroxine 50 mcg capsule 50 mcg PO DAILY 04/24/19 spironolactone 25 mg tablet 25 mg PO DAILY 04/24/19 vitamin B complex 1 tab PO DAILY 04/24/19 metoprolol tartrate 25 mg tablet 25 mg PO BID 04/25/19 nitroglycerin 0.4 mg sublingual tablet 0.4 mg SUBLINGUAL Q5-15M #30 tab 04/25/19 furosemide 40 mg tablet 40 mg PO BID tab 06/03/20 pantoprazole 40 mg PO DAILY 01/10/21 sertraline 50 mg PO DAILY 01/10/21 Hospital Course Summary of Care Provided Minutes Spent on Discharge: 35 Hospital Course: Patient is an 85-year-old lady recently diagnosed with SARS-CoV-2 infection whose is on admission, who presented to the emergency department with increasing shortness of breath. Admitted for subsequent inpatient management. 1. SARS-CoV-2 infection ?Patient chest x-ray did not reveal any acute findings. However due to her increasing dyspnea and fatigue she was admitted for subsequent inpatient manag ement. Placed on supplemental oxygen and incentive spirometry 2. Physical deconditioning - Requested for PT OT eval and executive secretary social welfare to assist with discharge planning 3. Chronic congestive heart failure with preserved ejection fraction ?Patient at baseline did continue with her home diuretics 4. Chronic kidney disease stage III ?Patient kidney function at baseline 5. Hypothyroidism - Patient is on levothyroxine home dose continued 6. Coronary artery disease ?With previous PCI 7. Pulmonary hypertension ?Symptomatic treatment 8. Paroxysmal A. fib ?Rate controlled on metoprolol 9. GERD ?Patient is on PPI 10. Depression with anxiety ?Patient is on sertraline 11. DVT prophylaxis - SCDs, Lovenox. Physical Exam Narrative GENERAL: cooperative HEENT: Atraumatic; EYES; Anicteric, Normal Conjunctiva NECK; supple, normal thyroid, RESPIRATORY: Diminished to auscultation CARDIOVASCULAR: Regular S1 S2, GI: soft, normoactive bowel sounds, : No Renal angle tenderness; EXTREMITIES: No edema, no clubbing, MUSCULOSKELETAL: no muscle waisting NEURO: Awake; no lateralizing signs. SKIN: No Rash PSYCH; Flat affect ABG / Lab / Microbiology Data Result Diagrams: 01/12/21 04:20 01/12/21 04:20 Laboratory: Laboratory Results - last 24 hr 01/11/21 01/11/21 01/11/21 04:25 10:00 10:00 WBC 2.3 L RBC 4.07 L Hgb 12.1 Hct 37.2 MCV 91.4 MCH 29.7 MCHC 32.5 RDW Std Deviation 41.4 RDW Coeff of Gabi 12.5 Plt Count 164 MPV 11.8 Immature Gran % (Auto) 0.400 Neut % (Auto) 70.8 H Lymph % (Auto) 22.7 Bartholomew % (Auto) 5.7 Eos % (Auto) 0.0 Baso % (Auto) 0.4 Absolute Neuts (auto) 1.6 L Absolute Lymphs (auto) 0.52 L Nucleated RBC % 0 Differential Comment COMMENT Diff Path Review Reviewed December foll Sodium 140 Potassium 3.4 L Chloride 104 Carbon Dioxide 28.0 Anion Gap 8 BUN 27 H Creatinine 1.53 H Estim Creat Clear Calc 20.78 Est GFR (MDRD) Af Amer 42 L Est GFR (MDRD) Non-Af 34 L BUN/Creatinine Ratio 17.6 Glucose 165 H Calcium 7.8 L Magnesium Total Bilirubin 0.40 Direct Bilirubin AST 17 ALT 11 L Alkaline Phosphatase 47 Total Protein 6.5 Albumin 3.2 Globulin 3.3 Albumin/Globulin Ratio 1.0 01/12/21 01/12/21 04:20 04:20 WBC 4.8 RBC 4.11 L Hgb 12.5 Hct 37.6 MCV 91.5 MCH 30.4 MCHC 33.2 RDW Std Deviation 41.6 RDW Coeff of Gabi 12.5 Plt Count 196 MPV 12.0 Immature Gran % (Auto) 0.200 Neut % (Auto) 67.9 Lymph % (Auto) 22.4 Bartholomew % (Auto) 9.3 Eos % (Auto) 0.0 Baso % (Auto) 0.2 Absolute Neuts (auto) 3.3 Absolute Lymphs (auto) 1.08 Nucleated RBC % 0 Differential Comment Diff Path Review Sodium 139 Potassium 3.7 Chloride 103 Carbon Dioxide 29.0 Anion Gap 7 BUN 30 H Creatinine 1.44 H Estim Creat Clear Calc 22.08 Est GFR (MDRD) Af Amer 45 L Est GFR (MDRD) Non-Af 37 L BUN/Creatinine Ratio 20.8 H Glucose 91 Calcium 8.2 L Magnesium 1.9 Total Bilirubin 0.50 Direct Bilirubin 0.14 AST 22 ALT 11 L Alkaline Phosphatase 45 Total Protein 6.6 Albumin 3.3 Globulin 3.3 Albumin/Globulin Ratio Microbiology: Microbiology 01/10/21 17:57 Mucosa - Nose Respiratory Panel (PCR) - Final 01/10/21 20:20 Urine, Clean Catch Legionella Antigen - Final 01/10/21 20:20 Urine, Clean Catch Streptococcus pneumoniae Antigen (M - Final D/C Instructions Discharge Diet: No restrictions Discharge Activity: Return to Normal Activity Call your doctor if you observe: Fever of 101 or Higher, Shortness of breath, Fainting spells and Chest pain Meaningful Use Info Meaningful Use Diagnoses (Choose all that apply): None applicable Discharge Plan Admission Admit Date/Time: 01/10/21 14:38 Primary Reason for Your Visit: Physical deconditioning; SARS-CoV-2 infection Attending Provider: Ty Simons Primary Care Provider: Charles Haddad Discharge Orders/Prescriptions Prescriptions: Continued metoprolol tartrate 25 mg tablet 25 mg PO BID RF: 0 nitroglycerin 0.4 mg tablet, sublingual 0.4 mg SUBLINGUAL Q5-15M Qty: 30 RF: 0 aspirin [Adult Aspirin Regimen] 81 mg tablet,delayed release (DR/EC) 81 mg PO DAILY RF: 0 spironolactone 25 mg tablet 25 mg PO DAILY RF: 0 hydrocodone-acetaminophen 10-325 mg tablet 1 tab PO Q6H PRN (Reason: Pain) RF: 0 calcium carbonate 600 mg calcium (1,500 mg) tablet 600 mg PO DAILY RF: 0 cholecalciferol (vitamin D3) 5,000 unit capsule 5,000 unit PO DAILY RF: 0 vitamin B complex Tablet 1 tab PO DAILY RF: 0 levothyroxine 50 mcg capsule 50 mcg capsule 50 mcg PO DAILY RF: 0 furosemide 40 mg tablet 40 mg PO BID RF: 0 sertraline 100 mg tablet 50 mg PO DAILY RF: 0 pantoprazole 40 mg tablet,delayed release (DR/EC) 40 mg PO DAILY RF: 0 Referrals / Follow Up: Charles Haddad DO [Primary Care Provider] - Within 1 Month Disposition Disposition (needs filled in before D/C Order can be placed): Home Health Service Visit Charges Inpatient E&M: 23414 Disch Hosp
--- NOTE | 2021-01-12 07:27 | PCM.DC ---
Discharge Instructions Diet Discharge Diet: No restrictions Activity Discharge Activity: Return to Normal Activity Dressing / Incision Call your doctor if you observe: Fever of 101 or Higher, Shortness of breath, Fainting spells and Chest pain Follow Up Care Test Results: Test results from this visit will be discussed in further detail at your follow-up appointment, if applicable. Discharge Plan Admission Admit Date/Time: 01/10/21 14:38 Primary Reason for Your Visit: Physical deconditioning; SARS-CoV-2 infection Attending Provider: Ty Simons Primary Care Provider: Charles Haddad Discharge Orders/Prescriptions Prescriptions: Continued metoprolol tartrate 25 mg tablet 25 mg PO BID RF: 0 nitroglycerin 0.4 mg tablet, sublingual 0.4 mg SUBLINGUAL Q5-15M Qty: 30 RF: 0 aspirin [Adult Aspirin Regimen] 81 mg tablet,delayed release (DR/EC) 81 mg PO DAILY RF: 0 spironolactone 25 mg tablet 25 mg PO DAILY RF: 0 hydrocodone-acetaminophen 10-325 mg tablet 1 tab PO Q6H PRN (Reason: Pain) RF: 0 calcium carbonate 600 mg calcium (1,500 mg) tablet 600 mg PO DAILY RF: 0 cholecalciferol (vitamin D3) 5,000 unit capsule 5,000 unit PO DAILY RF: 0 vitamin B complex Tablet 1 tab PO DAILY RF: 0 levothyroxine 50 mcg capsule 50 mcg capsule 50 mcg PO DAILY RF: 0 furosemide 40 mg tablet 40 mg PO BID RF: 0 sertraline 100 mg tablet 50 mg PO DAILY RF: 0 pantoprazole 40 mg tablet,delayed release (DR/EC) 40 mg PO DAILY RF: 0 Referrals / Follow Up: Charles Haddad DO [Primary Care Provider] - Within 1 Month Disposition Disposition (needs filled in before D/C Order can be placed): Home Health Service
[2021-01-12 08:00] VITALS: BP 150/75; PULSE 60; RESP 16; TEMP 36.5; O2SAT 98
[2021-01-12 08:23] VITALS: BP 150/75; PULSE 60
[2021-01-12] MEDS: Aspirin E.C. 81 MG Tablet PO (08:23)
[2021-01-12] MEDS: Calcium (Elemental) 500 MG Tablet PO (08:23)
[2021-01-12] MEDS: Metoprolol Tartrate 25 MG Tablet PO (08:23)
[2021-01-12] MEDS: Spironolactone 25 MG Tablet PO (08:24)
[2021-01-12] MEDS: Sertraline 50 MG Tablet PO (08:24)
[2021-01-12] MEDS: Furosemide 40 MG Tablet PO (08:24)
[2021-01-12] MEDS: Levothyroxine 50 MCG Tablet PO (08:24)
[2021-01-12] MEDS: Enoxaparin 30 MG/0.3 ML Syringe SC (08:24)
[2021-01-12] MEDS: dexAMETHasone 4 MG/ML Vial 6 MG IV (09:12)
--- NOTE | 2021-01-12 09:28 | CASEMGMT ---
MALCOM MILNER spoke with Benja john [facility], aware pt dc'ing today. Requests last COVID result. Pt was not tested at [facility]. Faxed dc instructions at this time.
--- NOTE | 2021-01-12 09:53 | NS ---
Pt being discharged this AM. Per RN Alie- pt's family was asking about nutrition instructions for home. Printed Nutrition Care Manual Tips for Increasing Calories, Tips for Increasing Protein, and COVID Nutrition Guide and left w/ Discharge Instructions for pt. Also left RDN contact info w/ papers for family to call w/ further questions. Beny Jean MS, RDN, LD
[2021-01-12 13:38] LABS: Pathologist Review Reviewed
--- NOTE | 2021-01-13 11:45 | CASEMGMT ---
COVID 19 Follow up telephone call TC to pt home. Pt dtr Kristin answered and states pt is in bed. States she is doing ok with the circumstances. States her father is not going to make it. She states she has not heard from [facility] the [facility]. States pt was able to get her medications and denies any questions regaring dc instructions or medications. Pt dtr began to cry during phone call. TC to Benja at [facility] to give pt home phone number to contact pt and to make aware of situtation. Pt is on the schedule for tomorrow.
== END 2021-01-12 10:30 | disposition home health service (06) ==
LOC: ED 12:57 → ICU 15:42
PROVIDERS: Admitting Provider Family Medicine; Emergency Provider Emergency Medicine; PCP Preventive Medicine Occupational Medicine; Visit Provider Internal Medicine
DX: U07.1 COVID-19 (principal); R09.02 Hypoxemia; I13.0 Hypertensive heart and chronic kidney disease with heart failure and stage 1 through stage 4 chronic kidney disease, or unspecified chronic kidney disease; I25.10 Atherosclerotic heart disease of native coronary artery without angina pectoris; E78.5 Hyperlipidemia, unspecified; N18.32 Chronic kidney disease, stage 3b; I50.42 Chronic combined systolic (congestive) and diastolic (congestive) heart failure; I48.0 Paroxysmal atrial fibrillation; K21.9 Gastro-esophageal reflux disease without esophagitis; I27.21 Secondary pulmonary arterial hypertension; M19.90 Unspecified osteoarthritis, unspecified site; E03.9 Hypothyroidism, unspecified; K44.9 Diaphragmatic hernia without obstruction or gangrene; R62.7 Adult failure to thrive; F41.8 Other specified anxiety disorders; M79.7 Fibromyalgia; Z79.899 Other long term (current) drug therapy; Z79.82 Long term (current) use of aspirin; Z86.718 Personal history of other venous thrombosis and embolism; Z68.21 Body mass index [BMI] 21.0-21.9, adult
CPT/HCPCS: 71045; 80048; 80053; 80076; 82728; 83605; 83615; 83735; 83880; 84145; 84484; 85025; 85379; 86140; 87040; 87449; 87633; 93005; 96361; 96372; 96374; 96375; 96376; 97162; 97166; 99218; 99251; 99285; J7030; A4216; G0378; G0463; J2405

== ENCOUNTER → 2021-03-02 10:44 | Outpatient (CLI) | payer MEDICARE, OTHER, SELFPAY ==
[2021-01-10 16:17] VITALS: BMI 21.3
--- NOTE | 2021-03-02 10:52 | RAD_ITS ---
STUDY: X-RAY - THORACIC SPINE REASON FOR EXAM: Female, 85 years old. R/O FX TECHNIQUE: 3 view(s) of the thoracic spine were obtained. COMPARISON: None. FINDINGS: There is an increase in the normal thoracic kyphosis. There is no substantial scoliosis. Compression fractures of T3, T5, T6, T7, T8, T9, T10, and T11 with vertebroplasty at T5, T7, T10. Normal disc space heights. The soft tissue structures are unremarkable. RAD/Thoracic Spine 3 Views IMPRESSION: Multiple compression fractures, which been treated with vertebroplasty with increased kyphosis. Electronically Signed: Yomi Mae MD at 15:48 EDT Tel , Service support ,
--- NOTE | 2021-03-02 11:00 | RAD_ITS ---
STUDY: X-RAY - LUMBAR SPINE REASON FOR EXAM: Female, 85 years old. R/O FX -- EDIT FROM THORACOLUMBAR TECHNIQUE: 4 view(s) of the lumbar spine were obtained. COMPARISON: 11/08/2016 FINDINGS: Normal lumbar lordosis. There is no substantial scoliosis. There is a normal alignment of the vertebrae. No subluxation on the flexion or extension views to suggest instability. No change in the chronic compression fractures of L1, L2, and L3 with vertebroplasty of L1. Normal disc space heights. The soft tissue structures are unremarkable. RAD/L/S Spine Min 4 Views IMPRESSION: No change from 11/08/2016. Electronically Signed: Yomi Mae MD at 15:46 EDT Tel , Service support ,
== END ==
PROVIDERS: PCP Preventive Medicine Occupational Medicine; Referring Provider Anesthesiology Pain Medicine; Visit Provider Anesthesiology Pain Medicine
DX: M54.17 Radiculopathy, lumbosacral region (principal); M51.37 Other intervertebral disc degeneration, lumbosacral region
CPT/HCPCS: 72072; 72110

== ENCOUNTER → 2021-12-08 | Outpatient (CLI) | payer MEDICARE, OTHER, SELFPAY ==
[2021-12-08 15:08] LABS: Albumin, Serum 3.9 g/dL (3.2-5.0); BUN 38 mg/dL (7-18); BUN/Creat Ratio 23.6 RATIO (10-20); Calcium,Total 9.5 mg/dL (8.5-10.1); Chloride 104 mmol/L (98-107); Creatinine, Serum 1.61 mg/dL (0.55-1.02); EST Glomerular Filtration Rate 32 mL/min (>60); Est Glom Filt Rate - Afr Amer 39 mL/min (>60); Glucose 84 mg/dL (74-106); Phosphorus 4.7 mg/dL (2.5-4.9); Sodium Level 136 mmol/L (136-145)
[2021-12-09 08:46] LABS: PTHIN 50.6 pg/mL (18.4-80.1)
== END | disposition home or self-care (01) ==
LOC: POLAB3 13:51
PROVIDERS: PCP Preventive Medicine Occupational Medicine; Visit Provider Internal Medicine Nephrology
DX: N17.9 Acute kidney failure, unspecified (principal)
CPT/HCPCS: 36415; 80069; 83970

== ENCOUNTER → 2022-04-12 | Outpatient (CLI) | payer MEDICARE, OTHER, SELFPAY ==
[2022-04-12 15:47] LABS: CRP < 2.90 mg/L (0.0-3.0)
[2022-04-14 15:08] LABS: Endomysial Antibody IgA Negative (Negative)
[2022-04-16 14:21] LABS: Immunoglobulin A 111 mg/dL (64-422); t-Transglutaminase IgA <2 U/mL (0-3)
[2022-04-22 16:34] LABS: Calprotectin, Stool 35 ug/g (0-120); Fats, Neutral Normal (.); Fats, Total Normal (.)
== END | disposition home or self-care (01) ==
PROVIDERS: PCP Preventive Medicine Occupational Medicine; Referring Provider Internal Medicine Gastroenterology; Visit Provider Internal Medicine Gastroenterology
DX: R19.7 Diarrhea, unspecified (principal)
CPT/HCPCS: 36415; 82705; 82784; 83516; 83993; 86140; 86255

== ENCOUNTER → 2022-05-03 | Outpatient (CLI) | payer MEDICARE, OTHER, SELFPAY ==
--- NOTE | 2022-05-03 13:37 | ECHOD_ITS ---
Reason For Study: MURMUR Procedure This was a 2D Doppler, Color Flow transthoracic echocardiogram. Exam performed in department. Left Ventricle Normal LV size. Left ventricular systolic function is normal. The estimated ejection fraction is 60 %. Transmitral and pulmonary venous doppler flow suggestive of impaired relaxation of left ventricle. No regional wall motion abnormalities noted. Right Ventricle Normal RV size. Normal systolic function. Atria Normal left atrium. Normal right atrium. Mitral Valve There is moderate mitral annular calcification. Mild (1+) eccentric mitral valve insufficiency. Tricuspid Valve Normal tricuspid valve. Mild to moderate (1-2+) tricuspid valve insufficiency. Pulmonary artery systolic pressure is 34 mmHg. Aortic Valve Trisinus/trileaflet aortic valve. Mild focal aortic valve calcification. Trivial aortic valve insufficiency. Pulmonic Valve Normal pulmonic valve. Great Vessels Calcified aortic root. The pulmonary artery is normal size. Normal inferior vena cava. Pericardium/Pleural No pericardial effusion. MMode/2D Measurements & Calculations LVIDd: 4.1 cm IVSd: 0.90 cm Ao root diam: 3.3 cm LVIDs: 3.1 cm LVPWd: 1.1 cm FS: 25.0 % LAV(MOD-bp): 57.1 ml LA A4 area: 20.8 cm2 LA dimension(2D): 4.8 cm LAV(MOD-bp) Indexed: 37.8 ml/m2 LAV(MOD-sp2): 52.0 ml LAV(MOD-sp4): 60.0 ml RA A4 area: 16.7 cm2 Time Measurements MV dec time: 0.21 sec Doppler Measurements & Calculations MV E max eusebio: 84.1 cm/sec Lat Peak E' Eusebio: 6.7 cm/sec Med Peak E' Eusebio: 4.4 cm/sec MV A max eusebio: 113.8 cm/sec E/E' lat: 12.5 E/E' med: 19.0 MV E/A: 0.74 MV dec slope: 396.3 cm/sec2 Ao V2 max: 132.7 cm/sec AI max eusebio: 484.2 cm/sec Ao max P.1 mmHg AI max P.8 mmHg Ao V2 mean: 84.7 cm/sec AI dec slope: 240.5 cm/sec2 Ao mean P.3 mmHg AI P1/2t: 589.6 msec Ao V2 VTI: 31.5 cm LV V1 max: 88.0 cm/sec PA V2 max: 68.6 cm/sec PI dec slope: 157.4 cm/sec2 LV V1 max P.1 mmHg LV V1 mean P.8 mmHg LV V1 mean: 63.7 cm/sec LV V1 VTI: 24.9 cm TR max eusebio: 276.3 cm/sec TR max P.5 mmHg ECHO/Echo Complete Interpretation Summary Normal LV size. Left ventricular systolic function is normal. The estimated ejection fraction is 60 %. Transmitral and pulmonary venous doppler flow suggestive of impaired relaxation of left ventricle Mild to moderate (1-2+) tricuspid valve insufficiency. Pulmonary artery systolic pressure is 34 mmHg. Ordering Physician: Aakash Springer Referring Physician: Charles Haddad Performed By: Allie Bernal, KEITH, RVT
== END | disposition home or self-care (01) ==
LOC: CVS 13:36
PROVIDERS: PCP Preventive Medicine Occupational Medicine; Referring Provider Internal Medicine Cardiovascular Disease; Visit Provider Internal Medicine Cardiovascular Disease
DX: I27.21 Secondary pulmonary arterial hypertension (principal)
CPT/HCPCS: 93306

== ENCOUNTER 2022-10-30 06:41 | Day surgery (SDC) | payer MEDICARE, OTHER, SELFPAY ==
[2022-10-27 07:20] VITALS: BMI 24.3
--- NOTE | 2022-10-30 07:51 | CL.IE_ITS ---
Patient: DARRYL MAYERS Study Date: 10/30/2022 Performing: Aakash Springer MD : [id number] Age: 87 Gender: female PROCEDURES PERFORMED [id number])REMOVAL OF LOOP RECORDER INDICATIONS Battery end of life PROCEDURE DETAILS The patient was brought to the Catheterization Lab in the postabsorptive nonsedated state. Informed consent was obtained prior to the procedure. Local anesthetic was given subcutaneously to the left upper chest area with Lidocaine 2%. Incision was made to the left upper chest. Skin closure was completed with Steri- strips. The patient tolerated the procedure well. 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
== END 2022-10-30 08:55 | disposition home or self-care (01) ==
LOC: CLSP 06:44
PROVIDERS: PCP Preventive Medicine Occupational Medicine; Referring Provider Internal Medicine Cardiovascular Disease; Visit Provider Internal Medicine Cardiovascular Disease
DX: Z95.0 Presence of cardiac pacemaker (principal); I48.0 Paroxysmal atrial fibrillation; I12.9 Hypertensive chronic kidney disease with stage 1 through stage 4 chronic kidney disease, or unspecified chronic kidney disease; N18.9 Chronic kidney disease, unspecified; I25.10 Atherosclerotic heart disease of native coronary artery without angina pectoris; K21.9 Gastro-esophageal reflux disease without esophagitis; E03.9 Hypothyroidism, unspecified; F32.A Depression, unspecified; Z86.16 Personal history of COVID-19; Z86.718 Personal history of other venous thrombosis and embolism; Z95.5 Presence of coronary angioplasty implant and graft; Z79.82 Long term (current) use of aspirin; Z79.899 Other long term (current) drug therapy
CPT/HCPCS: 33286; 99152; J7040

== ENCOUNTER 2023-01-02 22:23 | Emergency (ER) | payer MEDICARE, OTHER, SELFPAY ==
[2023-01-02 22:24] VITALS: BP 156/79; PULSE 69; RESP 14; TEMP 37.1; O2SAT 96; BMI 24.5
--- NOTE | 2023-01-02 22:29 | EKG12_ITS ---
Test Reason : DYSRHYTHMIA Blood Pressure : / mmHG Vent. Rate : 066 BPM Atrial Rate : 066 BPM P-R Int : 180 ms QRS Dur : 090 ms QT Int : 408 ms P-R-T Axes : 042 -40 038 degrees QTc Int : 427 ms Normal sinus rhythm Left axis deviation Abnormal ECG Confirmed by DIGNA FERNANDES, MU ([id number]), news assignment editor KAITLIN SMITH ([id number]) on 01/04/2023 8:58:19 AM Referred By: PALUINE Confirmed By:MU SAWYER MD
[2023-01-02 22:33] VITALS: O2SAT 96
[2023-01-02 22:34] VITALS: BP 156/79; PULSE 68
--- NOTE | 2023-01-02 22:50 | CT_ITS ---
EXAM: CT HEAD WITHOUT INTRAVENOUS CONTRAST CLINICAL INDICATION: headache and hypertension TECHNIQUE: Multiple axial images were obtained of the head without intravenous contrast. This CT exam was performed using one or more of the following dose reduction techniques: automated exposure control, adjustment of the mA and/or kV according to patient size, and/or use of iterative reconstruction technique. RADIATION DOSE: CTDIvol = 44.99 mGy, DLP = 812.98 mGy-cm COMPARISON: No relevant prior studies available. FINDINGS: BRAIN AND EXTRA-AXIAL SPACES: Moderate cerebral volume loss, moderate ventriculomegaly. Mild peripheral calcification of the left vertebral artery at the level of the foramen magnum. Moderate intracranial carotid calcifications. No intra- or extra-axial hemorrhage. No evidence of acute infarct. No intracranial mass or mass effect. There is preservation of the persaud/white matter interface. Posterior fossa structures are unremarkable. Basal cisterns are patent. BONES/JOINTS: Unremarkable. No discrete lytic or blastic abnormalities. SINUSES: Unremarkable as visualized. Clear. MASTOID AIR CELLS: Unremarkable. Clear. ORBITS: Postoperative changes of cataract surgery. CT/Brain/Head without Contrast IMPRESSION: Moderate chronic changes. No acute intracranial abnormality. Electronically Signed: Alison Hdz MD at 1:16 EDT ,
--- NOTE | 2023-01-02 22:51 | EX.ED.DYSGE1 ---
HPI History of Present Illness Chief Complaint: Chest Pain Detail of Chief Complaint: Elevated blood pressure last 2 days. Informant: patient and family Onset/Context/Timing Onset: Today and Yesterday Context: Gradual Onset Timing: Intermittent Current Severity: Mild Maximum Severity: Mild Narrative Narrative: 87-year-old female history of CHF, bilateral pleural effusions, DVT, A-fib, CAD with stent. Treated for hypertension with metoprolol and isosorbide. She also has chronic kidney disease. States last several days she has had elevated blood pressures of 196/100 2. Recently moved in with the family that is been stressful. She has had some headache associate with elevated blood pressure. Other than aspirin she is on no other blood thinners. No recent falls or head trauma. She has had an episode of chest discomfort when she was anxious. Denies fever, vomiting or diarrhea. No dysuria. Patient was brought in by squad given a nitroglycerin her blood pressure is improved she is feeling somewhat better. Prior similar symptoms: Yes Recent Illness/Hospitalization: No PFSH PFSH Medical History (HFpEF) heart failure with preserved ejection fraction Atherosclerosis of coronary artery of [place] heart without angina pectoris Bilateral pleural effusion Chronic kidney disease (CKD) Chronic renal insufficiency COVID-19 (12/2020) Deep vein thrombosis (DVT) (04/2012) Depression EE (eosinophilic esophagitis) Essential (primary) hypertension Fibromyalgia GERD (gastroesophageal reflux disease) Hiatal hernia Hyperlipidemia Hypothyroidism Osteoarthritis Osteoarthritis of hip (12/25/16) Paroxysmal atrial fibrillation Secondary pulmonary arterial hypertension Syncope (03/2019) Weakness generalized Home Medications aspirin 81 mg tablet,delayed release (Adult Aspirin Regimen) 81 mg PO DAILY 04/24/19 [History Last Taken 01/10/21 09:30] calcium carbonate 600 mg calcium (1,500 mg) tablet 600 mg PO DAILY 04/24/19 [History Last Taken 01/10/21 09:30] cholecalciferol (vitamin D3) 125 mcg (5,000 unit) capsule 5,000 unit PO DAILY 04/24/19 [History Last Taken 01/10/21 09:30] levothyroxine 50 mcg capsule 50 mcg PO DAILY 04/24/19 [History Last Taken 10/30/22] spironolactone 25 mg tablet 25 mg PO DAILY 04/24/19 [History Last Taken 01/10/21 09:30] vitamin B complex 1 tab PO DAILY 04/24/19 [History Last Taken 01/10/21 09:30] metoprolol tartrate 25 mg tablet 25 mg PO BID 04/25/19 [History Last Taken 10/30/22] nitroglycerin 0.4 mg sublingual tablet 0.4 mg sublingual Q5-15M #30 tabs 04/25/19 [Rx Last Taken Unknown] pantoprazole 40 mg tablet,delayed release 40 mg PO DAILY 01/10/21 [History Last Taken 10/30/22] gabapentin 100 mg capsule 100 mg PO TID 10/18/21 [History Last Taken Unknown] loperamide 2 mg capsule (Imodium A-D) 2 mg PO Q6H PRN Diarrhea 04/18/22 [History Last Taken Unknown] sertraline 50 mg tablet 50 mg PO DAILY 04/18/22 [History Last Taken Unknown] furosemide 20 mg tablet 20 mg PO DAILY PRN 12/06/22 [History Last Taken Unknown] isosorbide dinitrate 5 mg tablet 5 mg PO DAILY PRN 01/01/23 [History Last Taken Unknown] Allergy/AdvReac Type Severity Reaction Status Date / Time atorvastatin [From Lipitor] AdvReac myalgia Verified 01/02/23 22:27 oxycodone [From Percocet] AdvReac Unknown Verified 01/02/23 22:27 propoxyphene AdvReac Unknown Verified 01/02/23 22:27 [From Darvocet-N 100] tramadol [From Ultram] AdvReac Unknown Verified 01/02/23 22:27 Family History Father Heart disease CAD (coronary artery disease) Mother Heart disease Diabetes CVA (cerebral vascular accident) CAD (coronary artery disease) Surgical History History of appendectomy History of bowel resection History of cataract surgery History of coronary artery stent placement (05/31/12) History of hemiarthroplasty of left hip History of hysterectomy History of left heart catheterization (03/23/17) History of loop recorder (05/05/19) History of spinal surgery History of thoracentesis History of total knee arthroplasty Hx of cholecystectomy Social History household members: spouse Smoking Status: Never smoker alcohol intake: never substance use type: does not use ROS ROS ED ROS Narrative With elevated blood pressure. Review of Systems ROS Unobtainable: Denies due to encephalopathy Constitutional Constitutional ED: Denies chills or fever(s) Eyes Eyes: Reports blurry vision ENT ENT ED: Denies ear pain Cardiovascular Cardiovascular: Reports chest pain Respiratory/Chest Respiratory/Chest: Denies cough or dyspnea Gastrointestinal Gastrointestinal: Denies abdominal pain Genitourinary Genitourinary ED: Denies dysuria or hematuria Musculoskeletal Musculoskeletal: Denies arthralgias Integumentary Denies abscess Neurologic Neurologic: Reports headache(s) Psychiatric Psychiatric: Denies anxiety or depression Endocrine Endocrinology: Denies cold intolerance Hematologic/Lymphatic Hematologic/Lymphatic: Reports none Allergic/Immunologic Allergic/Immunologic ED: Denies mouth swelling or tongue swelling EXAM Physical Exam Narrative Exam Narrative: Well-appearing 87-year-old female. Currently vital signs are stable afebrile. Her current blood pressure is 156/79. Pulse ox is 96% on room air no hypoxia. Daughter at bedside. H EENT exam unremarkable atraumatic. Pupils round reactive light. Normal speech. No facial droop. Neck nontender. Lungs are clear. Heart regular rhythm rate about 70. Chest wall nontender. Abdomen soft nontender. Moving all 4 extremities. Equal symmetrical 5-5 color technician strength. Dorsi plantarflexion intact. Nontender no edema. Neurologically she is awake and alert. Answering questions following commands. No focal motor deficits. NIH score is 0. Const Vital Signs: 01/02/23 22:24 01/02/23 22:28 01/02/23 22:24 Temperature 98.8 F Temperature Source Temporal Pulse Rate 69 Respiratory Rate 14 Respiratory Effort Normal Non-Labored Blood Pressure 156/79 H Blood Pressure Mean 104 Pulse Ox 96 Oxygen Delivery Method Room Air 01/02/23 22:33 01/02/23 22:34 Temperature Temperature Source Pulse Rate 68 Respiratory Rate Respiratory Effort Blood Pressure 156/79 H Blood Pressure Mean 104 Pulse Ox 96 Oxygen Delivery Method Room Air Positive well nourished and well developed; Negative for obese, cachectic, contractures or unkempt General Appearance ED: well developed and NAD; Negative for unkempt, cachectic, contractures, cyanotic, diaphoretic or pallor Nutritional Appearance: Negative for cachectic or obese HEENT Reports moist mucous membranes; Denies dry mucous membranes Negative for trauma or tenderness Mouth ED: No dry mucous membranes Mouth: No dry mucous membranes Eyes PERRL and EOMs intact bilaterally General Eye ED: Negative for pale conjunctiva or scleral icterus Neck no lymphadenopathy, supple and no JVD General: Negative for tenderness Lymph Lymphatic: Negative for other Chest Wall inspection of chest normal and palpation of chest normal Chest: Negative for other Resp normal respiratory effort and clear to auscultation bilaterally Effort and Inspection: Negative for retractions Auscultation: Negative for rales, rhonchi or wheezes Cardio regular rate, regular rhythm, S1 normal heart sound and S2 normal heart sound GI normal to inspection, nondistended, normoactive bowel sounds, non-tender, non-distended and no masses Inspection: Negative for abdominal distention Auscultation: normoactive bowel sounds Palpation: soft; Negative for tender or guarding Back/Spine no CVA tenderness General Back: Negative for CVA tenderness Cervical Spine: Negative for cervical spine tenderness Thoracic Spine / Upper Back: Negative for thoracic spinal tenderness Lumbar Spine / Lower Back: Negative for lumbar spinal tenderness Extremity normal to inspection General Extremety ED: Negative for edema or tenderness General Extremity: Negative for edema Neuro oriented x3 and CN's II-XII intact bilaterally Sensorium / Orientation: alert; Negative for orientation impaired, lethargic or stuporous Sensory Exam: No sensory level loss detected Motor Exam: strength 5/5 throughout; Negative for general weakness Psych mental status grossly normal Appearance: Negative for unkempt Attitude: No agitated Mood & Affect: Negative for depressed, anxious or tearful Skin no rashes or lesions noted and no wounds General Skin Exam: elasticity normal; Negative for jaundice or pallor Lesions: No lesion noted Rashes: No rashes noted Trauma: Negative for abrasion Wounds: Negative for wounds noted MDM MDM MDM Narrative Medical decision making narrative: 87-year-old presents with elevated blood pressure last 2 days. Intermittent headaches. Benign exam. Pressure improved after receiving nitroglycerin per squad. She will undergo a CT for the headaches and elevated blood pressure and cardiac work-up. Repeat exam patient doing well. No complaints. She and I and her daughter went over all of her test results. They are comfortable with her being discharged home. We will get a repeat blood pressure prior to discharge. She is going to log her blood pressures at home and follow-up with her coffee host to see if they need to make any medication adjustments. We are not going to make any at this time. History & Record Review Discussion w/independent historian: Patient and Family Lab Data Attestation: I reviewed the patient's lab results. Lab results narrative: CBC shows a white count of 5. H&H 11.6 36.5. Platelets 217. Electrolytes unremarkable gap of 6. BUN of 24 creatinine of 1.1. Glucose 117. Initial troponin eight 2-hour troponin 8 also. X-ray chronic changes. CT brain no acute process. No significant change when compared to prior labs. Labs: Laboratory Results - last 24 hr 01/02/23 01/02/23 01/03/23 22:50 22:50 01:12 WBC 5.4 RBC 3.84 L Hgb 11.6 L Hct 36.5 L MCV 95.1 MCH 30.2 MCHC 31.8 L RDW Std Deviation 45.7 H RDW Coeff of Gabi 13.2 Plt Count 217 MPV 11.1 Immature Gran % (Auto) 0.200 Neut % (Auto) 61.7 Lymph % (Auto) 22.4 [place] % (Auto) 11.8 H Eos % (Auto) 3.5 Baso % (Auto) 0.4 Absolute Neuts (auto) 3.4 Absolute Lymphs (auto) 1.22 Nucleated RBC % 0 Sodium 141 Potassium 4.0 Chloride 109 H Carbon Dioxide 26.0 Anion Gap 6 BUN 24 H Creatinine 1.11 H Estim Creat Clear Calc 31.59 Est GFR (MDRD) Af Amer 60 Est GFR (MDRD) Non-Af 50 L BUN/Creatinine Ratio 21.6 H Glucose 117 H Calcium 8.7 Troponin I High Sens 8 8 Radiography Chest X-Ray - ED: 1 View, Read by ED Physician, Heart, Lungs, Mediastinum, Bony Structures, No Acute Disease and Chronic Changes Diagnostic Testing: Clinical Impression(s) from Imaging Studies Brain CT 01/02/23 22:50 IMPRESSION: Moderate chronic changes. No acute intracranial abnormality. Electronically Signed: Alison Hdz MD at 1:16 EDT , Chest X-Ray 01/02/23 23:32 IMPRESSION: Stable chest. Mild cardiomegaly. No significant infiltrates or effusions. Electronically Signed: Alison Hdz MD at 0:57 EDT Reading Location ID and State: [facility] / [place] Tel , Service support , Rhythm Strip Rhythm Strip: Sinus Rhythm Rate: 66 Ectopy: None EKG Initial EKG: Attestation: I personally reviewed and interpreted this EKG as follows: Interpretation: Sinus Rhythm and No Acute Injury Pattern Comments: Normal sinus rhythm rate of 66 no acute signs of NE or ischemia no significant change from an EKG from December 2020. Prior EKG tracings: available for review Prior: Unchanged Discharge Plan Triage Chief Complaint: Chest Pain ED Provider: Saji Neff Dx/Rx/DC Orders Clinical Impression: Hypertension, History of heart artery stent, Headache, History of atrial fibrillation Instructions: ED Hypertension, Established Prescriptions: No Action metoprolol tartrate 25 mg tablet 25 mg PO BID nitroglycerin 0.4 mg tablet, sublingual 0.4 mg SUBLINGUAL Q5-15M Qty: 30 0RF aspirin [Adult Aspirin Regimen] 81 mg tablet,delayed release (DR/EC) 81 mg PO DAILY spironolactone 25 mg tablet 25 mg PO DAILY calcium carbonate 600 mg calcium (1,500 mg) tablet 600 mg PO DAILY cholecalciferol (vitamin D3) 5,000 unit capsule 5,000 unit PO DAILY vitamin B complex Tablet 1 tab PO DAILY levothyroxine 50 mcg capsule 50 mcg capsule 50 mcg PO DAILY gabapentin 100 mg capsule 100 mg PO TID sertraline 50 mg tablet 50 mg PO DAILY loperamide [Imodium A-D] 2 mg capsule 2 mg PO Q6H PRN (Reason: Diarrhea) furosemide 20 mg tablet 20 mg PO DAILY PRN pantoprazole 40 mg tablet,delayed release (DR/EC) 40 mg PO DAILY Label Comments: TAKE 1 TABLET BY MOUTH EVERY MORNING BEFORE MEALS isosorbide dinitrate 5 mg tablet 5 mg PO DAILY PRN Rx Instructions: allow nitrate-free interval of 12-14 hrs per 24-hr period Primary Care Provider: Charles Haddad Referrals: Aakash Springer MD [Med Staff - Active Staff] - As soon as possible Charles Haddad DO [Primary Care Provider] - Activity Restrictions/Additional Instructions: Your labs, CAT scan and chest x-ray were unremarkable tonight. Log your blood pressures twice daily. Follow-up with your coffee host to see if they need to make any adjustments in your medications. We do not need to tonight. Disposition Disposition: Home, Self Care
[2023-01-02 22:57] LABS: Absolute Lymphocyte Count 1.22 X10^3/uL (0.83-4.51); Absolute Neutrophil Count 3.4 X10^3/uL (2.0-7.7); Basophil# 0.02 X10^3/uL; Basophil% 0.4 % (0-1); Eosinophil# 0.19 X10^3/uL; Eosinophils% 3.5 % (0-5); Hematocrit 36.5 % (37-47); Hemoglobin 11.6 g/dL (12.0-15.0); Lymphocyte # 1.22 X10^3/ul (0.83-4.51); Lymphocyte % 22.4 % (19-41); Mean Corp Hgb Conc 31.8 g/dL (32-36); Mean Corpuscular Hgb 30.2 pg (27.0-32.0); Mean Corpuscular Volume 95.1 fL (81-99); Mean Platelet Vol. 11.1 fl (6.2-12.0); Monocyte# 0.64 X10^3/uL; Monocyte% 11.8 % (0-10); NRBC Flagged by Analyzer 0 % (0-5); Neutrophil # 3.36 X10^3/uL (2.7-7.7); Neutrophil % 61.7 % (47-70); Platelet Count 217 K/mm3 (150-450); RBC Distribution Width CV 13.2 % (11.6-14.6); RBC Distribution Width SD 45.7 fl (35.1-43.9); Red Blood Count 3.84 M/mm3 (4.2-5.4); White Blood Count 5.4 K/mm3 (4.4-11.0)
[2023-01-02 23:17] LABS: Anion Gap 6 (5-15); BUN 24 mg/dL (7-18); BUN/Creat Ratio 21.6 RATIO (10-20); Calcium,Total 8.7 mg/dL (8.5-10.1); Chloride 109 mmol/L (98-107); Creatinine, Serum 1.11 mg/dL (0.55-1.02); EST Glomerular Filtration Rate 50 mL/min (>60); Est Glom Filt Rate - Afr Amer 60 mL/min (>60); Estimated Creatinine Clearance 31.59 ml/min; Glucose 117 mg/dL (74-106); Sodium Level 141 mmol/L (136-145); Troponin-I HS (w/2H Reflex) 8 pg/mL (3.0-54.0)
[2023-01-02 23:24] VITALS: BP 156/79; PULSE 64
--- NOTE | 2023-01-02 23:32 | RAD_ITS ---
EXAM: XR CHEST, 1 VIEW CLINICAL INDICATION: chest pain TECHNIQUE: Frontal view of the chest. COMPARISON: January 10, 2021 FINDINGS: LUNGS AND PLEURAL SPACES: Unremarkable. No pneumothorax. No effusion. No definite infiltrate. HEART: Stable mild cardiomegaly. MEDIASTINUM: Similar appearance of coarse calcification in the mediastinum between the aortic arch and left main stem bronchus, presumably calcified lymph nodes. BONES/JOINTS: Similar appearance of vertebroplasty material in the thoracic bodies. Old left rib fractures are again noted. SOFT TISSUES: Unremarkable. UPPER ABDOMEN: Cholecystectomy clips. RAD/Chest 1 View (Portable) IMPRESSION: Stable chest. Mild cardiomegaly. No significant infiltrates or effusions. Electronically Signed: Alison Hdz MD at 0:57 EDT ,
[2023-01-03 00:55] LABS: Reflex Troponin-HS? (from REC) Y
[2023-01-03 01:34] LABS: Troponin-I HS 8 pg/mL (3.0-54.0)
[2023-01-03 02:05] VITALS: BP 173/73; PULSE 62; RESP 18; O2SAT 97
== END 2023-01-03 02:24 | disposition home or self-care (01) ==
PROVIDERS: Emergency Provider Emergency Medicine; PCP Preventive Medicine Occupational Medicine; Visit Provider Emergency Medicine
DX: I13.0 Hypertensive heart and chronic kidney disease with heart failure and stage 1 through stage 4 chronic kidney disease, or unspecified chronic kidney disease (principal); I50.9 Heart failure, unspecified; I48.0 Paroxysmal atrial fibrillation; R51.9 Headache, unspecified; E78.5 Hyperlipidemia, unspecified; N18.9 Chronic kidney disease, unspecified; I25.10 Atherosclerotic heart disease of native coronary artery without angina pectoris; Z86.718 Personal history of other venous thrombosis and embolism; Z79.82 Long term (current) use of aspirin; E03.9 Hypothyroidism, unspecified; Z79.899 Other long term (current) drug therapy; K21.9 Gastro-esophageal reflux disease without esophagitis; F32.A Depression, unspecified; Z90.49 Acquired absence of other specified parts of digestive tract; Z95.5 Presence of coronary angioplasty implant and graft; Z90.710 Acquired absence of both cervix and uterus; Z96.659 Presence of unspecified artificial knee joint
CPT/HCPCS: 70450; 71045; 80048; 84484; 85025; 93005; 99285; A4216

== ENCOUNTER → 2023-01-24 | Outpatient (CLI) | payer MEDICARE, OTHER, SELFPAY ==
[2023-01-24 12:09] LABS: PTHIN 153.3 pg/mL (18.4-80.1)
[2023-01-24 12:15] LABS: Albumin, Serum 3.9 g/dL (3.2-5.0); BUN 42 mg/dL (7-18); Calcium,Total 9.2 mg/dL (8.5-10.1); Chloride 111 mmol/L (98-107); EST Glomerular Filtration Rate 38 mL/min (>60); Est Glom Filt Rate - Afr Amer 46 mL/min (>60); Glucose 89 mg/dL (74-106); Phosphorus 3.1 mg/dL (2.5-4.9); Potassium 4.7 mmol/L (3.5-5.1); Sodium Level 139 mmol/L (136-145)
== END | disposition home or self-care (01) ==
LOC: LAB 10:49
PROVIDERS: PCP Preventive Medicine Occupational Medicine; Visit Provider Nurse Practitioner Family
DX: N18.4 Chronic kidney disease, stage 4 (severe) (principal)
CPT/HCPCS: 36415; 80069; 83970

== ENCOUNTER → 2023-03-08 | Outpatient (CLI) | payer MEDICARE, OTHER, SELFPAY ==
--- NOTE | 2023-03-08 14:00 | RAD_ITS ---
EXAM: XR THORACIC SPINE, 2 VIEWS CLINICAL INDICATION: ARTHROPATHY TECHNIQUE: Frontal and lateral views of the thoracic spine. COMPARISON: 03/02/2021. FINDINGS: VERTEBRAE: Compression fractures throughout the thoracic spine unchanged since previous exam. Vertebroplasty T5, T7, T10, and L1. Marked kyphotic deformity unchanged. No spondylolisthesis. Preservation of the normal thoracic kyphosis. No significant facet arthropathy. DISC SPACES: Unremarkable. Disc spaces are maintained. OTHER FINDINGS: Bones are diffusely osteopenic. RAD/Thoracic Spine 2 Views IMPRESSION: Marked kyphosis with extensive thoracic compression fractures, osteopenic vertebra, and multiple vertebroplasties unchanged since previous exam. Electronically Signed: Jose Watson MD at 4:10 EDT ,
== END | disposition home or self-care (01) ==
LOC: MTRAD 13:58
PROVIDERS: PCP Preventive Medicine Occupational Medicine; Visit Provider Nurse Practitioner Acute Care
DX: M48.9 Spondylopathy, unspecified (principal)
CPT/HCPCS: 72070

== ENCOUNTER 2023-11-27 08:10 | Emergency (ER) | payer MEDICARE, OTHER, SELFPAY ==
[2023-11-27 08:15] VITALS: BP 169/83; PULSE 72; RESP 16; TEMP 36.7; O2SAT 95; BMI 24.4
--- NOTE | 2023-11-27 08:37 | CT_ITS ---
STUDY: CT CHEST WITHOUT CONTRAST REASON FOR EXAM: Female, 88 years old. Right rib trauma RADIATION DOSAGE (If Supplied By Facility): CTDIvol = ( 7.01 ) mGy, DLP = ( 241.78 ) mGycm TECHNIQUE: Transaxial imaging was performed without the administration of intravenous contrast material. Multiplanar coronal and sagittal images were reformatted. Individualized dose optimization techniques were used for this CT. COMPARISON: No relevant priors. FINDINGS: CHEST Findings suggestive of focal linear scarring in the posterior aspect of the right upper lobe. Minimal increased markings at the left lung base suggestive of scarring. There is no demonstrated pleural abnormality. There are calcifications of the coronary arteries. Normal mediastinum. Normal hilar regions. Normal unenhanced pulmonary arteries. There is atherosclerotic calcification of the aortic arch with tortuosity and elongation of the aortic arch and descending thoracic aorta. There is an increased kyphosis of the thoracic spine. Multilevel vertebroplasty with loss of height of multiple thoracic vertebrae. Moderate-sized hiatal hernia. Status post cholecystectomy. Dilated intrahepatic biliary ducts. There is a 3.3 cm left parapelvic renal cyst. Splenic granulomas. CT/Chest without Contrast IMPRESSION: Focal scarring in the posterior aspect of the right upper lobe as well as mild increased markings at the left lung base suggest scarring. Increased kyphotic deformity with multiple vertebroplasty of the thoracic vertebrae with multiple compression fractures of the thoracic vertebrae. No acute rib fractures seen. Moderate sized hiatal hernia. Electronically Signed: Benito Levi MD at 9:18 EDT ,
--- NOTE | 2023-11-27 08:37 | CT_ITS ---
STUDY: CT BRAIN WITHOUT CONTRAST REASON FOR EXAM: Female, 88 years old. Head injury. RADIATION DOSAGE (If Supplied By Facility): CTDIvol = ( 44.99 ) mGy, DLP = ( 812.98 ) mGycm TECHNIQUE: Transaxial CT imaging of the brain was performed without administration of intravenous contrast material. Individualized dose optimization techniques were used for this CT. COMPARISON: Comparison is made with prior study dated January 02, 2023. FINDINGS: Normal soft tissue structures. Normal calvarium. There is moderate cerebral atrophy with widening of the extra-axial spaces and ventricular dilatation. There are areas of decreased attenuation within the white matter tracts of the supratentorial brain, consistent with microvascular disease changes. Normal basal ganglia and thalami. Normal brainstem. There is mild cerebellar atrophy. There is no intracranial hemorrhage. There are no findings of an acute ischemic infarction. Atherosclerotic plaque formation of the vertebral arteries as well as the cavernous portions of the internal carotid arteries bilaterally. Normal visualized paranasal sinuses. CT/Brain/Head without Contrast IMPRESSION: Chronic involutional changes of the brain. Electronically Signed: Benito Levi MD at 9:06 EDT ,
--- NOTE | 2023-11-27 08:50 | ED.VIS.FALL ---
HPI HPI - Fall History of Present Illness Chief Complaint: Fall Informant: patient and family Narrative Narrative: 88-year-old female presenting to the emergency room from a fall that occurred during the night. Patient states she went to the bathroom lost her balance and fell backwards. She states she hit several objects on her way to the ground. She notes she struck the back of her head. She takes a baby aspirin but denies taking any blood thinners. No reported loss of consciousness. She notes pain mostly in the right anterior posterior ribs along mid ribs. No hemoptysis or difficulty breathing. She notes some soreness of the right shoulder with certain movements. She notes some soreness of the right hip. Patient's had several missed falls this week. PFSH [facility] Medical History (HFpEF) heart failure with preserved ejection fraction Atherosclerosis of coronary artery of [place] heart without angina pectoris Bilateral pleural effusion Chronic kidney disease (CKD) Chronic renal insufficiency COVID-19 (12/2020) Deep vein thrombosis (DVT) (04/2012) Depression EE (eosinophilic esophagitis) Essential (primary) hypertension Fibromyalgia GERD (gastroesophageal reflux disease) Hiatal hernia Hyperlipidemia Hypothyroidism Osteoarthritis Osteoarthritis of hip (12/25/16) Paroxysmal atrial fibrillation Secondary pulmonary arterial hypertension Syncope (03/2019) Weakness generalized Home Medications aspirin 81 mg tablet,delayed release (Adult Aspirin Regimen) 81 mg PO DAILY 04/24/19 [History Last Taken 01/10/21 09:30] calcium carbonate 600 mg PO DAILY 04/24/19 [History Last Taken 01/10/21 09:30] cholecalciferol (vitamin D3) 125 mcg (5,000 unit) capsule 5,000 unit PO DAILY 04/24/19 [History Last Taken 01/10/21 09:30] vitamin B complex 1 tab PO DAILY 04/24/19 [History Last Taken 01/10/21 09:30] nitroglycerin 0.4 mg sublingual tablet 0.4 mg sublingual Q5-15M #30 tabs 04/25/19 [Rx Last Taken Unknown] pantoprazole 40 mg tablet,delayed release 40 mg PO DAILY 01/10/21 [History Last Taken 10/30/22] loperamide 2 mg capsule (Imodium A-D) 2 mg PO Q6H PRN Diarrhea 04/18/22 [History Last Taken Unknown] sertraline 50 mg tablet 50 mg PO DAILY 04/18/22 [History Last Taken Unknown] amlodipine 5 mg tablet 5 mg PO DAILY #90 tabs 06/07/23 [Rx Last Taken Unknown] denosumab 60 mg/mL subcutaneous syringe (Prolia) 60 mg subcut [id number] 06/07/23 [History Last Taken Unknown] levothyroxine 50 mcg capsule 100 mcg PO DAILY 06/07/23 [History Last Taken Unknown] lisinopril 5 mg tablet 5 mg PO DAILY #90 tabs 06/07/23 [Rx Last Taken Unknown] spironolactone 25 mg tablet 25 mg PO DAILY #90 tabs 06/07/23 [Rx Last Taken Unknown] metoprolol tartrate 25 mg tablet 25 mg PO BID 11/27/23 [History Last Taken Unknown] tramadol 50 mg tablet 25 - 50 mg PO TID PRN PRN pain 11/27/23 [History Last Taken Unknown] Allergy/AdvReac Type Severity Reaction Status Date / Time atorvastatin [From Lipitor] AdvReac myalgia Verified 11/27/23 08:22 oxycodone [From Percocet] AdvReac Unknown Verified 11/27/23 08:22 propoxyphene AdvReac Unknown Verified 11/27/23 08:22 [From Darvocet-N 100] tramadol [From Ultram] AdvReac Unknown Verified 11/27/23 08:22 Family History Father Heart disease CAD (coronary artery disease) Mother Heart disease Diabetes CVA (cerebral vascular accident) CAD (coronary artery disease) Surgical History History of appendectomy History of bowel resection History of cataract surgery History of coronary artery stent placement (05/31/12) History of hemiarthroplasty of left hip History of hysterectomy History of left heart catheterization (03/23/17) History of loop recorder (05/05/19) History of spinal surgery History of thoracentesis History of total knee arthroplasty Hx of cholecystectomy Social History household members: spouse Smoking Status: Never smoker alcohol intake: never substance use type: does not use ROS ROS ED Constitutional Constitutional ED: Denies chills, fever(s) or weight loss Eyes Eyes: Denies change in vision or diplopia ENT ENT ED: Denies ear pain, rhinorrhea or sore throat Cardiovascular Cardiovascular: Reports chest pain; Denies orthopnea, palpitations or racing heartbeat Respiratory/Chest Respiratory/Chest: Denies cough, dyspnea or orthopnea Gastrointestinal Gastrointestinal: Denies abdominal pain, diarrhea, nausea or vomiting Genitourinary Genitourinary ED: Denies dysuria, hematuria or urinary frequency Musculoskeletal Musculoskeletal: Reports back pain and other Details: See HPI-right shoulder right hip right mid rib pain ; Denies arthralgias, myalgias or neck pain Integumentary Denies abscess or rash Neurologic Neurologic: Denies headache(s) or weakness Psychiatric Psychiatric: Denies anxiety, depression, suicidal ideation or suicidal thoughts Endocrine Endocrinology: Denies polydipsia, polyphagia or polyuria Allergic/Immunologic Allergic/Immunologic ED: Denies mouth swelling, tongue swelling or urticaria EXAM Physical Exam Const Vital Signs: 11/27/23 08:15 11/27/23 08:30 Temperature 98.1 F Temperature Source Oral Pulse Rate 72 Respiratory Rate 16 Respiratory Effort Normal Non-Labored Blood Pressure 169/83 H Blood Pressure Mean 111 Pulse Ox 95 Oxygen Delivery Method Room Air Positive well nourished and well developed General Appearance ED: well developed HEENT Reports normocephalic, head/scalp atraumatic and moist mucous membranes Eyes PERRL and EOMs intact bilaterally Neck no lymphadenopathy, supple and no JVD Chest Wall Chest Narrative: Tender palpation of the right mid ribs. There is no crepitance. No subcutaneous emphysema. Resp normal respiratory effort and clear to auscultation bilaterally Cardio regular rate, regular rhythm and no murmurs GI normal to inspection, nondistended, normoactive bowel sounds and non-tender Palpation: soft Back/Spine no CVA tenderness and normal ROM Extremity Extremity Narrative: Mild tenderness to palpation over the right greater trochanter and iliac crest. Mild tenderness to palpation posterior right shoulder. There is no obvious clavicular or AC joint deformity. Neurovascular intact. Neuro oriented x3 and CN's II-XII intact bilaterally Sensorium / Orientation: alert Motor Exam: strength 5/5 throughout Psych mental status grossly normal Mood & Affect: Negative for depressed or tearful Skin no rashes or lesions noted and no wounds MDM MDM MDM Narrative Medical decision making narrative: CT of brain demonstrates no intracranial hemorrhage or obvious skull fracture. CT of the chest demonstrates no obvious pneumothorax large pleural effusion or obvious rib fracture. Please see radiologist read for further findings My independent interpretation of the plain films of the right hip and pelvis is no acute fracture. Degenerative changes noted. My independent interpretation of the plain films of the right shoulder is no obvious fracture. Patient was given results of the above testing. She will be discharged home with supportive care. Patient should expect soreness with gradual improvement. She is aware that rib she may take weeks to heal. History & Record Review Discussion w/independent historian: Patient and Family Radiography Diagnostic Testing: Clinical Impression(s) from Imaging Studies Brain CT 11/27/23 08:37 IMPRESSION: Chronic involutional changes of the brain. Electronically Signed: Benito Levi MD at 9:06 EDT , Chest CT 11/27/23 08:37 IMPRESSION: Focal scarring in the posterior aspect of the right upper lobe as well as mild increased markings at the left lung base suggest scarring. Increased kyphotic deformity with multiple vertebroplasty of the thoracic vertebrae with multiple compression fractures of the thoracic vertebrae. No acute rib fractures seen. Moderate sized hiatal hernia. Electronically Signed: Benito Levi MD at 9:18 EDT , Hip/Pelvis X-Ray 11/27/23 08:55 IMPRESSION: Degenerative changes. No acute abnormality is seen. Electronically Signed: Benito Levi MD at 9:37 EDT , Shoulder X-Ray 11/27/23 08:55 IMPRESSION: Normal x-ray examination of the shoulder. Electronically Signed: Benito Levi MD at 9:36 EDT , Discharge Plan Triage Chief Complaint: Fall ED Provider: Braydon Nathan Dx/Rx/DC Orders Prescriptions: No Action nitroglycerin 0.4 mg tablet, sublingual 0.4 mg SUBLINGUAL Q5-15M Qty: 30 0RF aspirin [Adult Aspirin Regimen] 81 mg tablet,delayed release (DR/EC) 81 mg PO DAILY calcium carbonate 600 mg calcium (1,500 mg) tablet 600 mg PO DAILY cholecalciferol (vitamin D3) 5,000 unit capsule 5,000 unit PO DAILY vitamin B complex Tablet 1 tab PO DAILY levothyroxine 50 mcg capsule 50 mcg capsule 100 mcg PO DAILY sertraline 50 mg tablet 50 mg PO DAILY loperamide [Imodium A-D] 2 mg capsule 2 mg PO Q6H PRN (Reason: Diarrhea) Prolia 60 mg/mL syringe 60 mg subcut [id number] amlodipine 5 mg tablet 5 mg PO DAILY Qty: 90 3RF lisinopril 5 mg tablet 5 mg PO DAILY Qty: 90 3RF spironolactone 25 mg tablet 25 mg PO DAILY Qty: 90 3RF pantoprazole 40 mg tablet,delayed release (DR/EC) 40 mg PO DAILY Patient Comments: TAKE 1 TABLET BY MOUTH EVERY MORNING BEFORE MEALS tramadol 50 mg tablet 25 - 50 mg PO TID PRN PRN (Reason: pain) metoprolol tartrate 25 mg tablet 25 mg PO BID Primary Care Provider: Charles Haddad Referrals: Charles Haddad DO [Primary Care Provider] -
--- NOTE | 2023-11-27 08:55 | RAD_ITS ---
STUDY: X-RAY - PELVIS AND RIGHT HIP REASON FOR EXAM: Female, 88 years old. Right hip pain following injury. TECHNIQUE: 3 views of the pelvis and hip. COMPARISON: None. FINDINGS: There is a non-specific bowel gas pattern. There are atherosclerotic vascular calcifications of the pelvic arteries. There is narrowing with cortical sclerosis and osteophyte formation of the sacroiliac joint consistent with degenerative osteoarthritic changes. Healed bilateral superior and inferior pubic rami fractures. Normal pubic symphysis. Normal bilateral ischial tuberosities. Normal visualized femoral head. Normal acetabulum. There is moderate articular joint space narrowing of the hip. Status post left hip replacement. RAD/HIP, UNI W/ Pelvis 2-3 Views IMPRESSION: Degenerative changes. No acute abnormality is seen. Electronically Signed: Benito Levi MD at 9:37 EDT ,
--- NOTE | 2023-11-27 08:55 | RAD_ITS ---
STUDY: X-RAY - RIGHT SHOULDER REASON FOR EXAM: Female, 88 years old. Pain following injury. TECHNIQUE: 2 view(s) of the shoulder. COMPARISON: None. FINDINGS: Normal glenohumeral articulation. Normal acromioclavicular joint. Normal acromion. Normal humeral head and visualized proximal humerus. The soft tissue structures are unremarkable. Normal visualized pulmonary apex. RAD/Shoulder min 2 Views IMPRESSION: Normal x-ray examination of the shoulder. Electronically Signed: Benito Levi MD at 9:36 EDT ,
== END 2023-11-27 10:22 | disposition home or self-care (01) ==
PROVIDERS: Emergency Provider Emergency Medicine; PCP Preventive Medicine Occupational Medicine; Visit Provider Emergency Medicine
DX: R07.81 Pleurodynia (principal); I48.0 Paroxysmal atrial fibrillation; I25.10 Atherosclerotic heart disease of native coronary artery without angina pectoris; N18.9 Chronic kidney disease, unspecified; Z86.718 Personal history of other venous thrombosis and embolism; Z86.16 Personal history of COVID-19; W19.XXXA Unspecified fall, initial encounter; Z79.899 Other long term (current) drug therapy; Z79.82 Long term (current) use of aspirin; Z95.5 Presence of coronary angioplasty implant and graft
CPT/HCPCS: 70450; 71250; 73030; 73502; 99282

== ENCOUNTER → 2023-12-07 | Outpatient (CLI) | payer MEDICARE, OTHER, SELFPAY ==
[2023-12-07 14:23] LABS: Absolute Lymphocyte Count 1.09 X10^3/uL (0.83-4.51); Absolute Neutrophil Count 3.8 X10^3/uL (2.0-7.7); Basophil# 0.03 X10^3/uL; Basophil% 0.5 % (0-1); Eosinophil# 0.08 X10^3/uL; Eosinophils% 1.5 % (0-5); Hematocrit 37.6 % (37-47); Hemoglobin 11.9 g/dL (12.0-15.0); Lymphocyte # 1.09 X10^3/ul (0.83-4.51); Lymphocyte % 19.8 % (19-41); Mean Corp Hgb Conc 31.6 g/dL (32-36); Mean Corpuscular Hgb 29.8 pg (27.0-32.0); Mean Corpuscular Volume 94.2 fL (81-99); Mean Platelet Vol. 12.1 fl (6.2-12.0); Monocyte# 0.53 X10^3/uL; Monocyte% 9.6 % (0-10); NRBC Flagged by Analyzer 0 % (0-5); Neutrophil # 3.76 X10^3/uL (2.7-7.7); Neutrophil % 68.4 % (47-70); Platelet Count 223 K/mm3 (150-450); RBC Distribution Width CV 13.1 % (11.6-14.6); RBC Distribution Width SD 45.4 fl (35.1-43.9); Red Blood Count 3.99 M/mm3 (4.2-5.4); White Blood Count 5.5 K/mm3 (4.4-11.0)
[2023-12-07 14:57] LABS: Vitamin D,25 Hydroxy 28.2 ng/mL
[2023-12-07 15:07] LABS: Anion Gap 3 (5-15); BUN 36 mg/dL (7-18); BUN/Creat Ratio 21.1 RATIO (10-20); Calcium,Total 9.4 mg/dL (8.5-10.1); Chloride 109 mmol/L (98-107); Creatinine, Serum 1.71 mg/dL (0.55-1.02); EST Glomerular Filtration Rate 30 mL/min (>60); Est Glom Filt Rate - Afr Amer 36 mL/min (>60); Glucose 100 mg/dL (74-106); Potassium 5.7 mmol/L (3.5-5.1); Sodium Level 137 mmol/L (136-145)
== END | disposition home or self-care (01) ==
LOC: LAB 13:32
PROVIDERS: PCP Preventive Medicine Occupational Medicine; Referring Provider Nurse Practitioner Gerontology; Visit Provider Nurse Practitioner Gerontology
DX: E55.9 Vitamin D deficiency, unspecified (principal); R53.83 Other fatigue
CPT/HCPCS: 36415; 80048; 82306; 84443; 85025

== ENCOUNTER → 2023-12-10 | Outpatient (CLI) | payer MEDICARE, OTHER, SELFPAY ==
[2023-12-10 15:40] LABS: Anion Gap 4 (5-15); BUN 38 mg/dL (7-18); BUN/Creat Ratio 23.9 RATIO (10-20); Calcium,Total 9.2 mg/dL (8.5-10.1); Chloride 109 mmol/L (98-107); Creatinine, Serum 1.59 mg/dL (0.55-1.02); EST Glomerular Filtration Rate 33 mL/min (>60); Est Glom Filt Rate - Afr Amer 40 mL/min (>60); Glucose 128 mg/dL (74-106); Potassium 4.4 mmol/L (3.5-5.1); Sodium Level 139 mmol/L (136-145)
== END | disposition home or self-care (01) ==
LOC: LAB 13:45
PROVIDERS: PCP Preventive Medicine Occupational Medicine; Referring Provider Nurse Practitioner Gerontology; Visit Provider Nurse Practitioner Gerontology
DX: E87.5 Hyperkalemia (principal)
CPT/HCPCS: 36415; 80048

== ENCOUNTER → 2023-12-20 | Outpatient (CLI) | payer MEDICARE, OTHER, SELFPAY | END | disposition home or self-care (01) | LOC: PSN 09:44 | PROVIDERS: PCP Preventive Medicine Occupational Medicine; Referring Provider Nurse Practitioner Gerontology; Visit Provider Nurse Practitioner Gerontology | DX: I48.0 Paroxysmal atrial fibrillation (principal) | CPT/HCPCS: 93225; 93226 ==

== ENCOUNTER 2024-01-06 00:09 | Emergency (ER) | payer MEDICARE, OTHER, SELFPAY ==
[2024-01-06 00:10] VITALS: BP 160/109; PULSE 80; RESP 16; TEMP 36.8; O2SAT 96; BMI 21.9
--- NOTE | 2024-01-06 01:14 | EDS_ITS ---
HPI History of Present Illness Chief Complaint: Wound Check Informant: patient and family Narrative Narrative: Patient is an 88-year-old female with past medical history of hypertension hyperlipidemia chronic kidney disease and paroxysmal A-fib but currently not on any type of blood thinner such as Eliquis or Xarelto or Coumadin. Patient states that she took a shower this evening and when she got out she noticed there was bruising along the left side of her forehead/mormonism. She states that there was no trauma or fall. The patient denies any pain associated with this. She states that her daughter saw it and became concerned that it could be a blood clot and therefore made her come to the hospital for evaluation. [facility] Medical History (HFpEF) heart failure with preserved ejection fraction Atherosclerosis of coronary artery of [place] heart without angina pectoris Bilateral pleural effusion Chronic kidney disease (CKD) Chronic renal insufficiency COVID-19 (12/2020) Deep vein thrombosis (DVT) (04/2012) Depression EE (eosinophilic esophagitis) Essential (primary) hypertension Fibromyalgia GERD (gastroesophageal reflux disease) Hiatal hernia Hyperlipidemia Hypothyroidism Osteoarthritis Osteoarthritis of hip (12/25/16) Paroxysmal atrial fibrillation Secondary pulmonary arterial hypertension Syncope (03/2019) Weakness generalized Home Medications ?Medication ?Instructions ?Recorded ?Last Taken ?Type aspirin 81 mg tablet,delayed 81 mg PO DAILY 04/24/19 01/10/21 09:30 History release (Adult Aspirin Regimen) calcium carbonate 600 mg PO DAILY 04/24/19 01/10/21 09:30 History cholecalciferol (vitamin D3) 125 5,000 unit PO DAILY 04/24/19 01/10/21 09:30 History mcg (5,000 unit) capsule vitamin B complex 1 tab PO DAILY 04/24/19 01/10/21 09:30 History nitroglycerin 0.4 mg sublingual 0.4 mg sublingual Q5-15M #30 tabs 04/25/19 Unknown Rx tablet pantoprazole 40 mg tablet,delayed 40 mg PO DAILY 01/10/21 10/30/22 History release loperamide 2 mg capsule (Imodium 2 mg PO Q6H PRN Diarrhea 04/18/22 Unknown History A-D) sertraline 50 mg tablet 50 mg PO DAILY 04/18/22 Unknown History amlodipine 5 mg tablet 5 mg PO DAILY #90 tabs 06/07/23 Unknown Rx denosumab 60 mg/mL subcutaneous 60 mg subcut [id number] 06/07/23 Unknown History syringe (Prolia) levothyroxine 50 mcg capsule 100 mcg PO DAILY 06/07/23 Unknown History spironolactone 25 mg tablet 25 mg PO DAILY #90 tabs 06/07/23 Unknown Rx metoprolol tartrate 25 mg tablet 25 mg PO BID 11/27/23 Unknown History tramadol 50 mg tablet 25 - 50 mg PO TID PRN PRN pain 11/27/23 Unknown History gabapentin 100 mg capsule 100 mg PO DAILY 12/07/23 Unknown History Allergy/AdvReac Type Severity Reaction Status Date / Time atorvastatin (From Lipitor) AdvReac myalgia Verified 12/07/23 13:15 oxycodone (From Percocet) AdvReac Unknown Verified 12/07/23 13:15 propoxyphene (From AdvReac Unknown Verified 12/07/23 13:15 Darvocet-N 100) tramadol (From Ultram) AdvReac Unknown Verified 12/07/23 13:15 Family History (Reviewed 12/07/23 @ 13:01 by Autumn Haas AGRICULTURAL RESEARCH DIRECTOR, AGRICULTURAL RESEARCH DIRECTOR-C) Father Heart disease CAD (coronary artery disease) Mother Heart disease Diabetes CVA (cerebral vascular accident) CAD (coronary artery disease) Surgical History History of appendectomy History of bowel resection History of cataract surgery History of coronary artery stent placement (05/31/12) History of hemiarthroplasty of left hip History of hysterectomy History of left heart catheterization (03/23/17) History of loop recorder (05/05/19) History of spinal surgery History of thoracentesis History of total knee arthroplasty Hx of cholecystectomy Social History (Reviewed 12/07/23 @ 13:01 by Autumn Haas AGRICULTURAL RESEARCH DIRECTOR, AGRICULTURAL RESEARCH DIRECTOR-C) household members: spouse Smoking Status: Never smoker alcohol intake: never substance use type: does not use ROS ROS ED Constitutional Constitutional ED: Denies chills or fever(s) Eyes Eyes: Denies blurry vision or change in vision ENT ENT ED: Denies sore throat Cardiovascular Cardiovascular: Denies chest pain Respiratory/Chest Respiratory/Chest: Denies cough or dyspnea Gastrointestinal Gastrointestinal: Denies abdominal pain, diarrhea, nausea or vomiting Genitourinary Genitourinary ED: Denies dysuria Musculoskeletal Musculoskeletal: Denies myalgias Integumentary Denies rash Neurologic Neurologic: Denies headache(s) Hematologic/Lymphatic Hematologic/Lymphatic: Denies easy bleeding or easy bruising EXAM Physical Exam Const Vital Signs: 01/06/24 00:10 Temperature 98.2 F Temperature Source Oral Pulse Rate 80 Respiratory Rate 16 Blood Pressure 160/109 H Blood Pressure Mean 126 Pulse Ox 96 Oxygen Delivery Method Room Air Positive well nourished and well developed General Appearance ED: well developed HEENT HEENT Narrative: Along the lateral portions of the right and left forehead extending towards the mormonism are small dilated varicose veins. Along the mid to lower portion of the left venous structure there is spontaneous rupture with pooling of dark blood creating a small hematoma and area of ecchymosis roughly 1 cm in size. Otherwise no signs of depressed or basilar skull fracture No surrounding soft tissue changes to suggest infection Eyes PERRL and EOMs intact bilaterally General Eye ED: Negative for scleral icterus Neck supple Neck Narrative: No nuchal rigidity or meningeal signs Resp normal respiratory effort and clear to auscultation bilaterally Cardio regular rate and regular rhythm GI normal to inspection, nondistended, normoactive bowel sounds, non-tender and non-distended GI Narrative: No voluntary guarding or rigidity or pulsatile mass Auscultation: normoactive bowel sounds Palpation: soft Extremity normal to inspection Extremity Narrative: Patient has multiple varicosities in the bilateral legs and arms without asymmetric edema or pitting edema and negative Homans' sign bilaterally No findings of joint effusion or trauma present Neuro oriented x3, CN's II-XII intact bilaterally and no sensory deficits noted Sensorium / Orientation: alert Motor Exam: strength 5/5 throughout Psych mental status grossly normal Skin no rashes or lesions noted Skin Narrative: Multiple varicosities with soft tissue change along the left portion of the forehead/scalp as documented above MDM MDM MDM Narrative Medical decision making narrative: Patient arrived to the ER hypertensive but has a past medical history of this and otherwise vitals are stable. She reported that there has been no trauma and that the area of bruising simply showed up when she had out of the shower. Differential diagnosis is for cellulitis versus abscess versus spontaneous rupture of a varicosity. There is no redness there is no warmth there is no induration and therefore the chance that this is cellulitis or abscess is extremely low. There is no report or signs of trauma there for my concern for skull fracture versus epidural or subdural hematoma is low as well. At this time I believe the patient had spontaneous rupture of a varicosity secondary to vasodilation from being in the warm shower. As there is no signs of systemic bleeding or infection there is no need for workup and patient will be instructed on symptomatic care and is otherwise safe for discharge History & Record Review Discussion w/independent historian: Patient and Family Discharge Plan Triage Chief Complaint: Wound Check ED Provider: Benja Alcantara Dx/Rx/DC Orders Clinical Impression: Thrombophlebitis, Essential (primary) hypertension, Hyperlipidemia, Paroxysmal atrial fibrillation, Chronic kidney disease (CKD) Instructions: ED Varicose Veins Prescriptions: No Action nitroglycerin 0.4 mg tablet, sublingual 0.4 mg SUBLINGUAL Q5-15M Qty: 30 0RF aspirin [Adult Aspirin Regimen] 81 mg tablet,delayed release (DR/EC) 81 mg PO DAILY calcium carbonate 600 mg calcium (1,500 mg) tablet 600 mg PO DAILY cholecalciferol (vitamin D3) 5,000 unit capsule 5,000 unit PO DAILY vitamin B complex Tablet 1 tab PO DAILY levothyroxine 50 mcg capsule 100 mcg PO DAILY sertraline 50 mg tablet 50 mg PO DAILY loperamide [Imodium A-D] 2 mg capsule 2 mg PO Q6H PRN (Reason: Diarrhea) Prolia 60 mg/mL syringe 60 mg subcut [id number] amlodipine 5 mg tablet 5 mg PO DAILY Qty: 90 3RF spironolactone 25 mg tablet 25 mg PO DAILY Qty: 90 3RF gabapentin 100 mg capsule 100 mg PO DAILY Rx Instructions: qod pantoprazole 40 mg tablet,delayed release (DR/EC) 40 mg PO DAILY Patient Comments: TAKE 1 TABLET BY MOUTH EVERY MORNING BEFORE MEALS tramadol 50 mg tablet 25 - 50 mg PO TID PRN PRN (Reason: pain) metoprolol tartrate 25 mg tablet 25 mg PO BID Primary Care Provider: Charles Haddad Referrals: Charles Haddad DO [Primary Care Provider] - Activity Restrictions/Additional Instructions: Your history and physical exam is consistent with a spontaneous rupture of one of your superficial forehead veins and this is led to a small coagulation of blood known as thrombophlebitis. You can use warm compresses to help resolve this or do nothing and it will eventually be reabsorbed by your body. Return to the ER should you have any further concerns Print Language: Yi Disposition Disposition: Home, Self Care Discharge Date/Time: 01/06/24 01:25
== END 2024-01-06 01:25 | disposition home or self-care (01) ==
PROVIDERS: Emergency Provider Emergency Medicine; PCP Preventive Medicine Occupational Medicine; Visit Provider Emergency Medicine
DX: I80.9 Phlebitis and thrombophlebitis of unspecified site (principal); I13.0 Hypertensive heart and chronic kidney disease with heart failure and stage 1 through stage 4 chronic kidney disease, or unspecified chronic kidney disease; I50.30 Unspecified diastolic (congestive) heart failure; I48.0 Paroxysmal atrial fibrillation; E78.5 Hyperlipidemia, unspecified; N18.9 Chronic kidney disease, unspecified; Z86.16 Personal history of COVID-19; Z86.718 Personal history of other venous thrombosis and embolism
CPT/HCPCS: 99282

== ENCOUNTER → 2024-01-10 | Outpatient (CLI) | payer MEDICARE, OTHER, SELFPAY ==
--- NOTE | 2024-01-10 08:08 | RAD_ITS ---
STUDY: X-RAY - ESOPHAGUS (BARIUM SWALLOW) WITH FLUOROSCOPY REASON FOR EXAM: Female, 88 years old. DYSPHAGIA TECHNIQUE: 27 view(s) of the esophagus were obtained following swallowing of barium. FLUOROSCOPY TIME (if supplied): (16 seconds) minutes/seconds. 15.15 mGy. COMPARISON: Comparison is made with prior study dated 2020. FINDINGS: There is no demonstrated esophageal foreign body. Large sliding hiatal hernia. There is evidence of gastroesophageal reflux. The patient ingested a 12 mm tablet of barium. The tablet is trapped at the gastroesophageal junction. There is atherosclerotic calcification of the aortic arch with tortuosity of the descending aorta. Normal visualized pulmonary parenchyma. There are diffuse degenerative changes of the visualized thoracic spine. Status post multilevel vertebroplasty. RAD/Esophagus Single Contrast IMPRESSION: Large sliding hiatal hernia with gastroesophageal reflux. The 12 mm tablet of barium is trapped at the gastroesophageal junction. Electronically Signed: Benito Levi MD at 14:46 EDT ,
== END | disposition home or self-care (01) ==
PROVIDERS: PCP Preventive Medicine Occupational Medicine; Referring Provider Internal Medicine Gastroenterology; Visit Provider Internal Medicine Gastroenterology
DX: R13.10 Dysphagia, unspecified (principal)
CPT/HCPCS: 74220

== ENCOUNTER → 2024-02-05 | Outpatient (CLI) | payer MEDICARE, OTHER, SELFPAY ==
[2024-02-05 12:30] LABS: Hematocrit 33.4 % (37-47); Hemoglobin 10.6 g/dL (12.0-15.0); Mean Corp Hgb Conc 31.7 g/dL (32-36); Mean Corpuscular Hgb 30.9 pg (27.0-32.0); Mean Corpuscular Volume 97.4 fL (81-99); Mean Platelet Vol. 11.9 fl (6.2-12.0); Platelet Count 197 K/mm3 (150-450); RBC Distribution Width CV 12.7 % (11.6-14.6); RBC Distribution Width SD 45.2 fl (35.1-43.9); Red Blood Count 3.43 M/mm3 (4.2-5.4); White Blood Count 4.9 K/mm3 (4.4-11.0)
[2024-02-05 12:53] LABS: Albumin, Serum 3.4 g/dL (3.2-5.0); BUN 22 mg/dL (7-18); Calcium,Total 8.8 mg/dL (8.5-10.1); Chloride 109 mmol/L (98-107); Creatinine, Serum 1.22 mg/dL (0.55-1.02); EST Glomerular Filtration Rate 44 mL/min (>60); Est Glom Filt Rate - Afr Amer 54 mL/min (>60); Glucose 91 mg/dL (74-106); Phosphorus 3.1 mg/dL (2.5-4.9); Potassium 4.2 mmol/L (3.5-5.1); Sodium Level 140 mmol/L (136-145)
[2024-02-05 12:54] LABS: PTHIN 141.2 pg/mL (18.4-80.1)
== END | disposition home or self-care (01) ==
LOC: LAB 10:59
PROVIDERS: PCP Preventive Medicine Occupational Medicine; Referring Provider Internal Medicine Nephrology; Visit Provider Internal Medicine Nephrology
DX: N18.32 Chronic kidney disease, stage 3b (principal)
CPT/HCPCS: 36415; 80069; 82306; 83970; 85027

== ENCOUNTER 2024-02-17 14:04 | Emergency (ER) | payer MEDICARE, OTHER, SELFPAY ==
[2024-02-17 14:08] VITALS: BP 146/101; PULSE 87; RESP 18; TEMP 36.2; O2SAT 93; BMI 20.2
--- NOTE | 2024-02-17 14:25 | EKG12_ITS ---
Test Reason : ABD PAIN Blood Pressure : / mmHG Vent. Rate : 082 BPM Atrial Rate : 082 BPM P-R Int : 164 ms QRS Dur : 082 ms QT Int : 376 ms P-R-T Axes : 035 -37 038 degrees QTc Int : 439 ms Sinus rhythm with Premature atrial complexes Left axis deviation Abnormal ECG Confirmed by Jose Earl [id number]), editor in chief newspaper KAITLIN SMITH ([id number]) on 02/18/2024 2:07:59 PM Referred By: [email or web address]/[email or web address] Confirmed By:Jose Earl
--- NOTE | 2024-02-17 14:28 | EX.ED.DYSGE1 ---
HPI <ESCOBAR Silva - Last Filed: 02/17/24 20:23> History of Present Illness Chief Complaint: Abd Pain Narrative Narrative: 88-year-old female with PMH of HTN, HLD, A-fib, CAD, CKD, hiatal hernia presents with 2 days of worsening lower chest and epigastric pain. She thinks it is from her hiatal hernia. She states a few weeks ago Dr. Xie did a Botox injection in the esophagus and plan to stretch it but it was not amenable to this. Since then she has had some intermittent epigastric pain but it worsened over the last 2 days. She is eating less and having toast, soup, and this morning only had a protein shake. She spit up some phlegm but otherwise has no nausea or vomiting. She had a normal bowel movement this morning. She believes she has had a cholecystectomy and appendectomy. PFSH <ESCOBAR Silva - Last Filed: 02/17/24 20:23> PFS Medical History (HFpEF) heart failure with preserved ejection fraction Atherosclerosis of coronary artery of [place] heart without angina pectoris Bilateral pleural effusion Chronic kidney disease (CKD) Chronic renal insufficiency COVID-19 (12/2020) Deep vein thrombosis (DVT) (04/2012) Depression EE (eosinophilic esophagitis) Essential (primary) hypertension Fibromyalgia GERD (gastroesophageal reflux disease) Hiatal hernia Hyperlipidemia Hypothyroidism Osteoarthritis Osteoarthritis of hip (12/25/16) Paroxysmal atrial fibrillation Secondary pulmonary arterial hypertension Syncope (03/2019) Weakness generalized Home Medications ?Medication ?Instructions ?Recorded ?Last Taken ?Type aspirin 81 mg tablet,delayed 81 mg PO DAILY 04/24/19 01/10/21 09:30 History release (Adult Aspirin Regimen) nitroglycerin 0.4 mg sublingual 0.4 mg sublingual Q5-15M #30 tabs 04/25/19 Unknown Rx tablet pantoprazole 40 mg tablet,delayed 40 mg PO DAILY 01/10/21 10/30/22 History release loperamide 2 mg capsule (Imodium 2 mg PO Q6H PRN Diarrhea 04/18/22 Unknown History A-D) sertraline 50 mg tablet 50 mg PO DAILY 04/18/22 Unknown History amlodipine 5 mg tablet 5 mg PO DAILY #90 tabs 06/07/23 Unknown Rx spironolactone 25 mg tablet 25 mg PO DAILY #90 tabs 06/07/23 Unknown Rx tramadol 50 mg tablet 25 - 50 mg PO TID PRN PRN pain 11/27/23 Unknown History gabapentin 100 mg capsule 100 mg PO DAILY 12/07/23 Unknown History metoprolol tartrate 25 mg tablet 25 mg PO BID #180 tabs 01/28/24 Unknown Rx levothyroxine 100 mcg tablet 100 mcg PO DAILY 02/17/24 Unknown History Allergy/AdvReac Type Severity Reaction Status Date / Time atorvastatin (From Lipitor) AdvReac myalgia Verified 02/17/24 14:12 oxycodone (From Percocet) AdvReac Unknown Verified 02/17/24 14:12 propoxyphene (From AdvReac Unknown Verified 02/17/24 14:12 Darvocet-N 100) tramadol (From Ultram) AdvReac Unknown Verified 02/17/24 14:12 Family History Father Heart disease CAD (coronary artery disease) Mother Heart disease Diabetes CVA (cerebral vascular accident) CAD (coronary artery disease) Surgical History History of appendectomy History of bowel resection History of cataract surgery History of coronary artery stent placement (05/31/12) History of hemiarthroplasty of left hip History of hysterectomy History of left heart catheterization (03/23/17) History of loop recorder (05/05/19) History of spinal surgery History of thoracentesis History of total knee arthroplasty Hx of cholecystectomy Social History household members: spouse Smoking Status: Never smoker alcohol intake: never substance use type: does not use ROS <ESCOBAR Silva - Last Filed: 02/17/24 20:23> ROS ED ROS Narrative Constitutional: Negative for fever, chills, malaise. CVS: Positive for chest pain. Respiratory: Negative for shortness of breath. GI: Positive for abdominal pain. Negative for nausea, vomiting, diarrhea. EXAM <ESCOBAR Silva - Last Filed: 02/17/24 20:23> Physical Exam Narrative Exam Narrative: CONST: Patient sitting in no acute distress. EYES: Normal inspection. NECK: Normal inspection. RESP: No respiratory distress, CTAB. CVS: Regular rate and rhythm, no murmur, no gallop. ABD: Soft and nontender, no guarding or rebound, nondistended. SKIN: Color normal, no rash, warm, dry, intact. EXTREMITIES: Normal appearance, no pedal edema. NEURO: Alert and answering questions appropriately. PSYCH: Normal affect. Const Vital Signs: 02/17/24 14:08 02/17/24 15:56 Temperature 97.2 F L 98.2 F Temperature Source Temporal Pulse Rate 87 59 L Respiratory Rate 18 16 Blood Pressure 146/101 H 117/68 Blood Pressure Mean 116 84 Pulse Ox 93 95 Oxygen Delivery Method Room Air <Dr. Mathieu Bertrand MD - Last Filed: 02/21/24 07:32> Physical Exam Const Vital Signs: 02/17/24 14:08 02/17/24 15:56 Temperature 97.2 F L 98.2 F Temperature Source Temporal Pulse Rate 87 59 L Respiratory Rate 18 16 Blood Pressure 146/101 H 117/68 Blood Pressure Mean 116 84 Pulse Ox 93 95 Oxygen Delivery Method Room Air MDM <ESCOBAR Silva - Last Filed: 02/17/24 20:23> [facility] MDM Narrative Medical decision making narrative: History gathered from: Patient and family Differential: Pain from hiatal hernia, GERD/PUD, ACS Cardiac workup negative. Basic labs unrevealing. She has no abdominal tenderness or indication for a CT scan. She is feeling improvement after GI cocktail, Pepcid and Zofran. After talking with her further she states she thinks her symptoms might of flared up after having pizza 1-year-old. I think her pain is from her large hiatal hernia. She is already on a PPI I discussed that she should follow the dietary restrictions advised by her GI doctor, she can also try [id number] Pepcid, and I discussed return precautions. She was discharged in stable condition. I have personally performed a face to face assessment of the patient and have reviewed the CHERELLE Note. I performed a substantive portion of the visit including all aspects of the following. My barrientos findings include: History is remarkable for pain for some time. Attempt at esophageal dilatation by Dr. Louis Xie this past week was unsuccessful. She also had Botox which did not help the patient's swallowing. She had abnormal cookie swallow revealed a large sliding hiatal hernia and narrowing with delay of passage of at the EG junction. Patient may have slight increase shortness of breath compared to normal. She denies fever, chills night sweats. She denies hematemesis melena medic easier. She localizes the pain in the epigastric area. She denies orthopnea or PND. She denies history of PE or DVT. Exam is remarkable for patient being cachectic. Vital signs are normal. She appears in no distress. She not hypoxic. HEENT exam is unremarkable. Lungs reveal diminished breath sounds bilaterally. Otherwise no abnormalities noted on auscultation. Heart is regular. Rate is normal. There is no murmur, gallop or rub. Abdomen reveals possible slight discomfort in the epigastric area. There is no paraspinal megaly. No clinical Martinez sign. Medical Decision Making suspect this pain is due to her large hiatal hernia and stenosis at the EG junction. Will treat with GI meds and because she complains of slight shortness of breath over the past couple of days will obtain troponin to rule out atypical presentation for cardiac as well as EKG. Since the procedure was done several weeks ago doubt that she has a esophageal tear. 1 would expect her to be significantly ill in appearance. Other additions or changes: [None] Lab Data Labs: Laboratory Results - last 24 hr 02/17/24 14:24 WBC 8.1 RBC 3.77 L Hgb 11.4 L Hct 35.4 L MCV 93.9 MCH 30.2 MCHC 32.2 RDW Std Deviation 42.8 RDW Coeff of Gabi 12.4 Plt Count 214 MPV 11.7 Immature Gran % (Auto) 0.200 Neut % (Auto) 77.7 H Lymph % (Auto) 11.5 L [place] % (Auto) 9.9 Eos % (Auto) 0.5 Baso % (Auto) 0.2 Absolute Neuts (auto) 6.3 Absolute Lymphs (auto) 0.93 Nucleated RBC % 0 Sodium 138 Potassium 3.8 Chloride 106 Carbon Dioxide 26.0 Anion Gap 6 BUN 36 H Creatinine 1.13 H Estim Creat Clear Calc 25.12 Est GFR (MDRD) Af Amer 59 L Est GFR (MDRD) Non-Af 48 L BUN/Creatinine Ratio 31.9 H Glucose 108 H Calcium 9.7 Total Bilirubin 0.80 AST 17 ALT 13 Alkaline Phosphatase 40 L Troponin I High Sens 7 Total Protein 6.9 Albumin 3.4 Globulin 3.5 Albumin/Globulin Ratio 1.0 EKG Initial EKG: Attestation: I personally reviewed and interpreted this EKG as follows: Interpretation: Sinus Rhythm and No Acute Injury Pattern Comments: Sinus rhythm at 82 bpm with PACs Left axis deviation, no acute ischemic changes <Dr. Mathieu Bertrand MD - Last Filed: 02/21/24 07:32> MDM MDM Narrative Medical decision making narrative: I have personally performed a face to face assessment of the patient and have reviewed the CHERELLE Note. I performed a substantive portion of the visit including all aspects of the following. My barrientos findings include: History is remarkable for pain for some time. Attempt at esophageal dilatation by Dr. Louis Xie this past week was unsuccessful. She also had Botox which did not help the patient's swallowing. She had abnormal cookie swallow revealed a large sliding hiatal hernia and narrowing with delay of passage of at the EG junction. Patient may have slight increase shortness of breath compared to normal. She denies fever, chills night sweats. She denies hematemesis melena medic easier. She localizes the pain in the epigastric area. She denies orthopnea or PND. She denies history of PE or DVT. Exam is remarkable for patient being cachectic. Vital signs are normal. She appears in no distress. She not hypoxic. HEENT exam is unremarkable. Lungs reveal diminished breath sounds bilaterally. Otherwise no abnormalities noted on auscultation. Heart is regular. Rate is normal. There is no murmur, gallop or rub. Abdomen reveals possible slight discomfort in the epigastric area. There is no paraspinal megaly. No clinical Martinez sign. Medical Decision Making suspect this pain is due to her large hiatal hernia and stenosis at the EG junction. Will treat with GI meds and because she complains of slight shortness of breath over the past couple of days will obtain troponin to rule out atypical presentation for cardiac as well as EKG. Since the procedure was done several weeks ago doubt that she has a esophageal tear. 1 would expect her to be significantly ill in appearance. Other additions or changes: [None] Lab Data Attestation: I reviewed the patient's lab results. Lab results narrative: CBC reveals anemia. Patient has chronic anemia. Indices are normal. Comprehensive metabolic panel reveals slight elevation of BUN and creatinine from baseline. BUN is 36 with a creatinine of 1.13 with BUN to creatinine ratio approximate 32-1. Troponin with days of pain is normal at 7. Labs: Laboratory Results - last 24 hr 02/17/24 14:24 WBC 8.1 RBC 3.77 L Hgb 11.4 L Hct 35.4 L MCV 93.9 MCH 30.2 MCHC 32.2 RDW Std Deviation 42.8 RDW Coeff of Gabi 12.4 Plt Count 214 MPV 11.7 Immature Gran % (Auto) 0.200 Neut % (Auto) 77.7 H Lymph % (Auto) 11.5 L [place] % (Auto) 9.9 Eos % (Auto) 0.5 Baso % (Auto) 0.2 Absolute Neuts (auto) 6.3 Absolute Lymphs (auto) 0.93 Nucleated RBC % 0 Sodium 138 Potassium 3.8 Chloride 106 Carbon Dioxide 26.0 Anion Gap 6 BUN 36 H Creatinine 1.13 H Estim Creat Clear Calc 25.12 Est GFR (MDRD) Af Amer 59 L Est GFR (MDRD) Non-Af 48 L BUN/Creatinine Ratio 31.9 H Glucose 108 H Calcium 9.7 Total Bilirubin 0.80 AST 17 ALT 13 Alkaline Phosphatase 40 L Troponin I High Sens 7 Total Protein 6.9 Albumin 3.4 Globulin 3.5 Albumin/Globulin Ratio 1.0 Discharge Plan Triage Chief Complaint: Abd Pain ED Midlevel Provider: Stephanie Victoria ED Provider: Mathieu Bertrand Dx/Rx/DC Orders Clinical Impression: Hiatal hernia, Acute epigastric pain, Stenosis of esophagus, Acute prerenal azotemia, History of coronary artery disease Instructions: ED Hiatal Hernia Prescriptions: No Action nitroglycerin 0.4 mg tablet, sublingual 0.4 mg SUBLINGUAL Q5-15M Qty: 30 0RF aspirin [Adult Aspirin Regimen] 81 mg tablet,delayed release (DR/EC) 81 mg PO DAILY sertraline 50 mg tablet 50 mg PO DAILY loperamide [Imodium A-D] 2 mg capsule 2 mg PO Q6H PRN (Reason: Diarrhea) amlodipine 5 mg tablet 5 mg PO DAILY Qty: 90 3RF spironolactone 25 mg tablet 25 mg PO DAILY Qty: 90 3RF gabapentin 100 mg capsule 100 mg PO DAILY Rx Instructions: qod pantoprazole 40 mg tablet,delayed release (DR/EC) 40 mg PO DAILY Patient Comments: TAKE 1 TABLET BY MOUTH EVERY MORNING BEFORE MEALS levothyroxine 100 mcg tablet 100 mcg PO DAILY tramadol 50 mg tablet 25 - 50 mg PO TID PRN PRN (Reason: pain) metoprolol tartrate 25 mg tablet 25 mg PO BID Qty: 180 3RF Primary Care Provider: Charles Haddad Referrals: Charles Haddad DO [Primary Care Provider] - Activity Restrictions/Additional Instructions: Continue pantoprazole. Avoid tomato-based foods, spicy foods, fried or fatty foods. This can worsen acid reflux and your hiatal hernia pain. Print Language: Nepalese Disposition Disposition: Home, Self Care Discharge Date/Time: 02/17/24 16:15
[2024-02-17 14:37] LABS: Absolute Lymphocyte Count 0.93 X10^3/uL (0.83-4.51); Absolute Neutrophil Count 6.3 X10^3/uL (2.0-7.7); Basophil# 0.02 X10^3/uL; Basophil% 0.2 % (0-1); Eosinophil# 0.04 X10^3/uL; Eosinophils% 0.5 % (0-5); Hematocrit 35.4 % (37-47); Hemoglobin 11.4 g/dL (12.0-15.0); Lymphocyte # 0.93 X10^3/ul (0.83-4.51); Lymphocyte % 11.5 % (19-41); Mean Corp Hgb Conc 32.2 g/dL (32-36); Mean Corpuscular Hgb 30.2 pg (27.0-32.0); Mean Corpuscular Volume 93.9 fL (81-99); Mean Platelet Vol. 11.7 fl (6.2-12.0); Monocyte% 9.9 % (0-10); NRBC Flagged by Analyzer 0 % (0-5); Neutrophil # 6.31 X10^3/uL (2.7-7.7); Neutrophil % 77.7 % (47-70); Platelet Count 214 K/mm3 (150-450); RBC Distribution Width CV 12.4 % (11.6-14.6); RBC Distribution Width SD 42.8 fl (35.1-43.9); Red Blood Count 3.77 M/mm3 (4.2-5.4); White Blood Count 8.1 K/mm3 (4.4-11.0)
[2024-02-17 14:52] LABS: AST(SGOT) 17 U/L (15-37); Alanine Aminotransfer ALT/SGPT 13 U/L (13-56); Albumin, Serum 3.4 g/dL (3.2-5.0); Alkaline Phosphatase 40 U/L (45-117); Anion Gap 6 (5-15); BUN 36 mg/dL (7-18); BUN/Creat Ratio 31.9 RATIO (10-20); Calcium,Total 9.7 mg/dL (8.5-10.1); Chloride 106 mmol/L (98-107); Creatinine, Serum 1.13 mg/dL (0.55-1.02); EST Glomerular Filtration Rate 48 mL/min (>60); Est Glom Filt Rate - Afr Amer 59 mL/min (>60); Estimated Creatinine Clearance 25.12 ml/min; Globulin 3.5 g/dL (2.2-4.2); Glucose 108 mg/dL (74-106); Potassium 3.8 mmol/L (3.5-5.1); Protein, Total 6.9 g/dL (6.4-8.2); Sodium Level 138 mmol/L (136-145); Troponin-I HS 7 pg/mL (3.0-54.0)
[2024-02-17] MEDS: Mag /Aluminum/Simeth WCH UDC 30 ML ORAL.SUSP PO (15:00)
[2024-02-17] MEDS: Lidocaine 2% Viscous15 ML UDC 15 ML PO (15:00)
[2024-02-17] MEDS: Famotidine 200 MG/20 ML MDV 20 MG in 0.9% Normal Saline (Pres. free 8 ML 300 MG IV (15:01)
[2024-02-17] MEDS: Ondansetron 4 MG/2 ML Vial IV (15:29)
[2024-02-17 15:56] VITALS: BP 117/68; PULSE 59; RESP 16; TEMP 36.8; O2SAT 95
== END 2024-02-17 16:15 | disposition home or self-care (01) ==
PROVIDERS: Physician Assistant; Emergency Provider Emergency Medicine; PCP Preventive Medicine Occupational Medicine; Visit Provider Emergency Medicine
DX: K44.9 Diaphragmatic hernia without obstruction or gangrene (principal); I50.32 Chronic diastolic (congestive) heart failure; I13.0 Hypertensive heart and chronic kidney disease with heart failure and stage 1 through stage 4 chronic kidney disease, or unspecified chronic kidney disease; R10.13 Epigastric pain; K22.2 Esophageal obstruction; I25.10 Atherosclerotic heart disease of native coronary artery without angina pectoris; N18.9 Chronic kidney disease, unspecified; R79.89 Other specified abnormal findings of blood chemistry; Z79.82 Long term (current) use of aspirin; Z79.899 Other long term (current) drug therapy; Z86.16 Personal history of COVID-19; Z86.718 Personal history of other venous thrombosis and embolism; Z95.5 Presence of coronary angioplasty implant and graft
CPT/HCPCS: 80053; 84484; 85025; 93005; 96374; 99282; J2405; J3490

== ENCOUNTER 2024-10-05 23:02 | Emergency (ER) | payer MEDICARE, OTHER, SELFPAY ==
--- NOTE | 2024-10-05 00:25 | RAD_ITS ---
PROCEDURE: CHEST 1 VIEW (PORTABLE) REASON FOR EXAM: Cough, fall, leg pain TECHNIQUE: Frontal view of the chest. COMPARISON: None available FINDINGS: The lungs overall appear clear. No evidence of pneumothorax or pleural effusion identified. Hiatal hernia and ectatic thoracic aorta with vascular calcification. Vertebroplasties and nonacute appearing rib fracture deformities. RAD/Chest 1 View (Portable) IMPRESSION: No evidence of acute traumatic injury. Reading Location: [id number]
[2024-10-05 23:05] VITALS: BP 171/87; PULSE 109; RESP 24; TEMP 37.1; O2SAT 94; BMI 26.1
--- NOTE | 2024-10-05 23:22 | RAD_ITS ---
PROCEDURE: FEMUR MIN 2 VIEWS REASON FOR EXAM: Fall, left leg pain TECHNIQUE: 2 view(s) of left femur 4 total images to include the entire femur AP and lateral views COMPARISON: None. FINDINGS: LEFT FEMUR: No fracture. Status post left hip replacement, appears within limits. Vascular calcifications. RAD/Femur Min 2 Views IMPRESSION: No fracture Reading Location: [id number]
--- NOTE | 2024-10-05 23:22 | RAD_ITS ---
PROCEDURE: PELVIS 1 OR 2 VIEWS REASON FOR EXAM: Fall, left leg pain TECHNIQUE: 1 view(s) of the pelvis. AP view of the pelvis COMPARISON: None FINDINGS: No evidence of fracture or dislocation. Patient is rotated to the right. Status post left hip replacement with distal tip of femoral prosthesis extending off the inferior edge of the film. Vascular calcifications. RAD/Pelvis 1 or 2 Views IMPRESSION: No fracture identified. Reading Location: [id number]
--- NOTE | 2024-10-05 23:22 | RAD_ITS ---
PROCEDURE: FOOT MIN 3 VIEWS REASON FOR EXAM: Injury, fall TECHNIQUE: 3 views of left foot COMPARISON: None. FINDINGS: No acute fracture or dislocation. Osteopenia. Osteoarthrosis 1st and 5th metatarsophalangeal joint. Vascular calcifications. Enthesophyte formation Achilles side of the calcaneus. RAD/Foot min 3 Views IMPRESSION: No acute fracture or dislocation Reading Location: [id number]
--- NOTE | 2024-10-05 23:22 | CT_ITS ---
PROCEDURE: SPINE CERVICAL WITHOUT CONTRAS REASON FOR EXAM: Injury, fall Sunday, chronic pain TECHNIQUE: Cervical spine CT without contrast. COMPARISON: None. FINDINGS: No fracture. Accentuated lordosis with 2 mm of anterolisthesis C4 on C5. No prevertebral soft tissue swelling. Multilevel spondylosis/discogenic change. Bilateral carotid calcific plaque formation. CT/Spine Cervical without Contras IMPRESSION: No fracture. Accentuated lordosis with 2 mm of anterolisthesis C4 on C5. No prevertebral sof t tissue swelling. Multilevel spondylosis/discogenic change. One or more dose reduction techniques were used (e.g., Automated exposure contr ol, adjustment of the mA and/or kV according to patient size, use of iterative reconstruction technique). Reading Location: [id number]
--- NOTE | 2024-10-05 23:22 | CT_ITS ---
PROCEDURE: SPINE LUMBAR WITHOUT CONTRAST REASON FOR EXAM: Injury, fall, chronic pain . TECHNIQUE: Lumbar spine CT without contrast. Coronal and sagittal reformatted images CONTRAST: None COMPARISON: None. FINDINGS: 5 [id number] lumbar vertebral type bodies. No acute fracture or malalignment. L1 vertebroplasty. Osteopenia. Inferior endplate compression deformity L2, L3 and superior endplate at L5 without associated acute fracture plane identified. Multilevel spondylosis/discogenic change. Bilateral degenerative sacroiliac changes appears greater on the left. The patient is status post cholecystectomy with apparent intrahepatic biliary ductal dilation which may represent reservoir effect, post cholecystectomy biliary ectasia may correlate further with follow- up LFTs and alkaline phosphatase and may consider additional imaging as warranted. Appearance of left renal atrophy and suggestion of left-sided renal possible cysts. May follow-up with nonemergent renal ultrasound to further characterize as warranted. Aortoiliac atherosclerotic calcifications. [place] artifact from left hip replacement. CT/Spine Lumbar without Contrast IMPRESSION: No acute fracture or malalignment identified. Multilevel endplate compression deformities without associated acute visualized fracture plane. Status post L1 vertebroplasty. Incidental findings as described above. One or more dose reduction techniques were used (e.g., Automated exposure contr ol, adjustment of the mA and/or kV according to patient size, use of iterative reconstruction technique). Reading Location: [id number]
--- NOTE | 2024-10-05 23:22 | CT_ITS ---
PROCEDURE: SPINE THORACIC WITHOUT CONTRAS REASON FOR EXAM: Injury, fall Sunday, chronic pain TECHNIQUE: Thoracic spine CT without intravenous contrast. With coronal and sagittal reformatted images CONTRAST: None COMPARISON: Thoracic spine x-ray 03/08/2023. FINDINGS: No acute fracture or malalignment. Accentuated thoracic kyphosis. Multilevel biconcave appearing vertebral body compression deformities with loss of vertebral body height overall similar appearance to the previous thoracic spine radiograph without convincing evidence of interval increase in vertebral body height loss. Multilevel vertebroplasties again noted. Some extravasation of methylmethacrylate is seen within the right side of the spinal canal at the T7 level. No pneumothorax visualized within the partially imaged lungs. A few scattered bandlike opacities may represent atelectasis or scarring. Small focus of mucus or secretions at the dependent portion of the right mainstem bronchus for example axial 52. 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 Atherosclerotic vascular calcifications. Coronary calcification and/or stents. No evidence of pericardial or pleural effusion identified. [id number] appearing hiatal hernia with air-fluid level in the upper esophagus. CT/Spine Thoracic without Contras IMPRESSION: No acute fracture or malalignment identified. Multilevel compression deformities and previous vertebroplasties as described i n detail above overall similar appearance to preceding radiograph. One or more dose reduction techniques were used (e.g., Automated exposure contr ol, adjustment of the mA and/or kV according to patient size, use of iterative reconstruction technique). Reading Location: [id number]
--- NOTE | 2024-10-05 23:22 | RAD_ITS ---
PROCEDURE: KNEE 3 VIEWS REASON FOR EXAM: Injury TECHNIQUE: 3 view(s) of the left knee AP, tunnel and lateral COMPARISON: None. FINDINGS: Acute fracture at the lower aspect of the patella without significant displacement seen on the lateral view with overlying soft tissue swelling and note of lipohemarthrosis. No other acute fracture identified. No dislocation. Osteoarthrosis appears greatest in the medial compartment with note of chondrocalcinosis. Vascular calcifications. RAD/Knee 3 Views IMPRESSION: Acute fracture at the lower aspect of the patella without significant displacem ent seen on the lateral view with overlying soft tissue swelling and note of lipohemarthrosis. Reading Location: [id number]
--- NOTE | 2024-10-05 23:22 | CT_ITS ---
EXAM: Noncontrast head CT CLINICAL HISTORY: Injury, fall Sunday, chronic pain COMPARISON: None available TECHNIQUE: Noncontrast head CT with coronal and sagittal reformatted images FINDINGS: No intracranial hemorrhage, mass effect or calvarial fracture. The ventricles are within limits of midline. Chronic involutional changes. Volume loss, atrophy. [place] periventricular deep and subcortical white matter bilateral supratentorial low-attenuation statistically would represent chronic small- vessel ischemic change with superimposed acute lacunar infarct difficult to exclude. A few small scattered calcifications. The paranasal sinuses and mastoids are clear. Orbits appear within limits. CT/Brain/Head without Contrast IMPRESSION: No intracranial hemorrhage, mass effect or calvarial fracture. Age commensurate appearing chronic and involutional changes. Reading Location: [id number]
[2024-10-05] MEDS: 0.9% Normal Saline (500mL Bag) 500 ML 1000 ML IV (23:44)
[2024-10-05] MEDS: Ondansetron 4 MG/2 ML Vial IV (23:44)
[2024-10-05] MEDS: Morphine 4 MG/ML Syringe IV (23:44)
--- NOTE | 2024-10-05 23:44 | EDS_ITS ---
HPI HPI - Fall History of Present Illness Chief Complaint: Fall Informant: patient and family Narrative Narrative: Presents here by EMS, daughter present. Fall unwitnessed 2 days ago while walking in the house. She transition from carpet into a laminate floor. Daughter was in the bathroom when she heard her fall. She was sitting down when she saw her. Most of her pain in her left knee. She takes aspirin at home. No other anticoagulants. History of total hip arthroplasty by Dr. Karlos Ziegler. Also had a total right knee arthroplasty in the past. She has a cane to walk however she does not use it. She has had chronic back pain with kyphoplasties and lower lumbar surgery performed by Dr. Rincon. None recently. Currently follows pain management Dr. Schroeder on tramadol and gabapentin. Denies headache. Reports her back pain. Recent mild cough. Recent difficulty urinating. No vomiting or diarrhea. Patient unable to ambulate today. Daughter had a walker to try to use also. [facility] Medical History (HFpEF) heart failure with preserved ejection fraction Osteoarthritis of hip (12/25/16) Chronic kidney disease (CKD) Weakness generalized COVID-19 (12/2020) EE (eosinophilic esophagitis) Paroxysmal atrial fibrillation Syncope (03/2019) Bilateral pleural effusion Chronic renal insufficiency Hiatal hernia Secondary pulmonary arterial hypertension Osteoarthritis Depression GERD (gastroesophageal reflux disease) Hypothyroidism Fibromyalgia Deep vein thrombosis (DVT) (04/2012) Atherosclerosis of coronary artery of [place] heart without angina pectoris Essential (primary) hypertension Hyperlipidemia Home Medications ?Medication ?Instructions ?Recorded ?Last Taken ?Type aspirin 81 mg tablet,delayed 81 mg PO DAILY 04/24/19 0 01/10/21 09:30 History release (Adult Aspirin Regimen) pantoprazole 40 mg tablet,delayed 40 mg PO DAILY 01/1010/30/22 History release loperamide 2 mg capsule (Imodium 2 mg PO Q6H PRN Diarr hea 04/18/22 Unknown History A-D) sertraline 50 mg tablet 50 mg PO DAILY 04/18/22 Unkn own History tramadol 50 mg tablet 25 - 50 mg PO TID PRN PRN pa in 11/27/23 Unknown History gabapentin 100 mg capsule 100 mg PO DAILY 12/07/23 Unk nown History metoprolol tartrate 25 mg tablet 25 mg PO BID #180 tab s 01/28/24 Unknown Rx levothyroxine 100 mcg tablet 100 mcg PO DAILY 02/17/24 Unknown History amlodipine 5 mg tablet 5 mg PO DAILY #90 TABLETS Unknown Rx nitroglycerin 0.4 mg sublingual 0.4 mg sublingual Q5-1 5M #30 tabs 04/10/24 Unknown Rx tablet spironolactone 25 mg tablet 25 mg PO DAILY #90 tabs Unknown Rx Allergy/AdvReac Type Severity Reaction Status Date / Time atorvastatin (From Lipitor) AdvReac myalgia Verified 10/06/24 13:08 oxycodone (From Percocet) AdvReac Unknown Verified 10/06/24 13:08 propoxyphene (From AdvReac Unknown Verified 10/06/24 13:08 Darvocet-N 100) Family History Father Heart disease CAD (coronary artery disease) Mother Heart disease Diabetes CVA (cerebral vascular accident) CAD (coronary artery disease) Surgical History History of loop recorder (05/05/19) History of thoracentesis History of appendectomy History of cataract surgery History of total knee arthroplasty History of bowel resection Hx of cholecystectomy History of left heart catheterization (03/23/17) History of hysterectomy History of spinal surgery History of hemiarthroplasty of left hip History of coronary artery stent placement (05/31/12) Social History household members: spouse housing: house Smoking Status: Never smoker alcohol intake: never substance use type: does not use ROS ROS ED Constitutional Constitutional ED: Denies chills, fever(s) or sweats ENT ENT ED: Denies sore throat Cardiovascular Cardiovascular: Denies chest pain, leg edema, palpitations or racing heartbeat Respiratory/Chest Respiratory/Chest: Reports cough; Denies dyspnea or dyspnea on exertion Gastrointestinal Gastrointestinal: Denies abdominal pain, diarrhea, nausea or vomiting Genitourinary Genitourinary ED: Denies dysuria, hematuria or urinary frequency Musculoskeletal Musculoskeletal: Reports back pain and extremity pain; Denies neck pain Integumentary Denies rash or wounds Neurologic Neurologic: Denies headache(s), paresthesias or weakness EXAM Physical Exam Const Vital Signs: 10/06/24 02:21 10/06/24 05:15 Temperature 98.0 F Pulse Rate 63 80 Respiratory Rate 18 18 Blood Pressure 114/44 L 114/65 Blood Pressure Mean 67 81 Pulse Ox 93 94 Oxygen Delivery Method Room Air Constitutional Narrative: Thin female nontoxic no acute distress. GCS 15. Feels warm to palpation. HEENT Reports moist mucous membranes normocephalic and atraumatic Eyes General Eye ED: Yes normal appearance of both eyes Neck full ROM Chest Wall inspection of chest normal and palpation of chest normal Chest: Negative for tenderness Resp normal respiratory effort and normal air movement Effort and Inspection: symmetric chest movement; Negative for respiratory distress Cardio regular rate, regular rhythm and no murmurs Peripheral Pulses: pulses 2+ throughout GI normal to inspection, nondistended, normoactive bowel sounds and non-tender Palpation: Negative for guarding or rebound tenderness present Back/Spine Back/Spine Narrative: Tender palpation thoracic spine with kyphotic curvature. Extremity Extremity Narrative: Negative logroll right lower extremity, surgical scar right knee. Nontender. Left lower extremity pain with movement of the hip and the knee. Swelling of the knee. No deformities of the femur. Soft compartments. Tender palpation left great toe no ecchymosis. No midfoot or ankle tenderness. General Extremety ED: Yes tenderness; Negative for edema General Extremity: Negative for edema Neuro oriented x3, CN's II-XII intact bilaterally and no sensory deficits noted Sensorium / Orientation: awake and alert Skin Skin Narrative: See above MDM MDM MDM Narrative Medical decision making narrative: Interventions / MDM: Differential diagnosis: Patellar fracture, back contusion Diagnosis considered but do not suspect: Intracranial hemorrhage, compression fractures however CT images negative. My EKG interpretation: N/A Imaging independently reviewed and interpreted by myself: 3 view left knee nondisplaced infrapatellar fracture. 3 view left foot: No fracture. 1 view pelvis no fracture. 2 view femur left: Hardware intact with no fractures. CT brain: No acute process. CT cervical spine/thoracic/lumbar spine: No acute process also read by radiology. External documents reviewed: N/A Test considered but not ordered:N/A ED course: Fall 2 days ago difficulty ambulating. Chronic back pain with tenderness on palpation. More pain in her left knee and hip region. Trauma scans head and neck along with CT thoracic and lumbar spine ordered. X-ray pelvis left femur and left knee along with left foot for further evaluation. [place] warm on palpation oral temp of 98.7. IV established for labs urine. With her cough chest x-ray ordered. Morphine Zofran ordered for symptom control. Will check COVID RSV and flu swabs. 0435: Trauma scans of CT spines are negative. Pelvic x-ray negative. Femur x- ray stable hardware. Left knee x-ray infrapatellar nondisplaced fracture. Foot x-ray negative. Knee immobilizer was placed. She was ambulated with a walker walks slowly but stable. Consider admission with daughter she is concerned with her at home. However with her walking with a walker and able to in the emergency department she will try taking the patient home. I discussed return precautions. They can also discuss with her PCP if further help is needed at home or at out patient facilities. She has tramadol at home from her pain doc tors. She we will follow-up with her orthopedist. All questions were answered. Re-evaluation: stable Disposition discussed with patient/family/significant other: Patient and daughter Case discussed with consulting clinician: N/A This note was generated with Visante dictation software. It may contain incorrect words, spelling, and punctuation that were not noted in checking the note before signing. Lab Data Labs: Laboratory Results - last 24 hr 10/05/24 10/06/24 23:43 01:45 WBC 12.5 H RBC 3.83 L Hgb 11.8 L Hct 36.1 L MCV 94.3 MCH 30.8 MCHC 32.7 RDW Std Deviation 43.2 RDW Coeff of Gabi 12.5 Plt Count 264 MPV 10.8 Immature Gran % (Auto) 0.500 Neut % (Auto) 83.6 H Lymph % (Auto) 6.8 L [place] % (Auto) 8.0 Eos % (Auto) 0.9 Baso % (Auto) 0.2 Absolute Neuts (auto) 10.5 H Absolute Lymphs (auto) 0.85 Nucleated RBC % 0 PT 15.8 H INR 1.2 APTT 29.0 Sodium 136 Potassium 4.1 Chloride 105 Carbon Dioxide 24.0 Anion Gap 7 BUN 21 H Creatinine 1.03 H Estim Creat Clear Calc 30.27 Est GFR (MDRD) Af Amer 65 Est GFR (MDRD) Non-Af 54 L BUN/Creatinine Ratio 20.4 H Glucose 122 H Calcium 9.1 Total Bilirubin 0.90 AST 17 ALT 13 Alkaline Phosphatase 45 Total Protein 7.0 Albumin 3.4 Globulin 3.6 Albumin/Globulin Ratio 0.9 Urine Color Yellow Urine Clarity Sl. Cloudy Urine pH 6.0 Ur Specific [place] 1.010 Urine Protein 30 H Urine Glucose (UA) Normal Urine Ketones Negative Urine Occult Blood Negative Urine Nitrite Negative Urine Bilirubin Negative Urine Urobilinogen 1 H Ur Leukocyte Esterase Negative Urine RBC 0 SEEN Urine WBC 0-5 SEEN Ur Squamous Epith Cells 0 SEEN Urine Bacteria 3+ Urine Mucus 1+ Radiography Diagnostic Testing: Clinical Impression(s) from Imaging Studies Chest X-Ray 10/05/24 00:25 IMPRESSION: No evidence of acute traumatic injury. Reading Location: [facility] Brain CT 10/05/24 23:22 IMPRESSION: No intracranial hemorrhage, mass effect or calvarial fracture. Age commensurate appearing chronic and involutional changes. Reading Location: [facility] Cervical Spine CT 10/05/24 23:22 IMPRESSION: No fracture. Accentuated lordosis with 2 mm of anterolisthesis C4 on C5. No prevertebral soft tissue swelling. Multilevel spondylosis/discogenic change. One or more dose reduction techniques were used (e.g., Automated exposure control, adjustment of the mA and/or kV according to patient size, use of iterative reconstruction technique). Reading Location: [facility] Femur X-Ray 10/05/24 23:22 IMPRESSION: No fracture Reading Location: [facility] Foot X-Ray 10/05/24 23:22 IMPRESSION: No acute fracture or dislocation Reading Location: [facility] Knee X-Ray 10/05/24 23:22 IMPRESSION: Acute fracture at the lower aspect of the patella without significant displacement seen on the lateral view with overlying soft tissue swelling and note of lipohemarthrosis. Reading Location: [facility] Lumbar Spine CT 10/05/24 23:22 IMPRESSION: No acute fracture or malalignment identified. Multilevel endplate compression deformities without associated acute visualized fracture plane. Status post L1 vertebroplasty. Incidental findings as described above. One or more dose reduction techniques were used (e.g., Automated exposure control, adjustment of the mA and/or kV according to patient size, use of iterative reconstruction technique). Reading Location: [facility] Pelvis X-Ray 10/05/24 23:22 IMPRESSION: No fracture identified. Reading Location: [facility] Thoracic Spine CT 10/05/24 23:22 IMPRESSION: No acute fracture or malalignment identified. Multilevel compression deformities and previous vertebroplasties as described in detail above overall similar appearance to preceding radiograph. One or more dose reduction techniques were used (e.g., Automated exposure control, adjustment of the mA and/or kV according to patient size, use of iterative reconstruction technique). Reading Location: [facility] Discharge Plan Triage Chief Complaint: Fall ED Provider: Benito Romero Dx/Rx/DC Orders Clinical Impression: Fall, Fracture of left patella, Back pain Instructions: ED Back Pain (Acute or Chronic), ED Patella Fracture Prescriptions: No Action aspirin [Adult Aspirin Regimen] 81 mg tablet,delayed release (DR/EC) 81 mg PO DAILY sertraline 50 mg tablet 50 mg PO DAILY loperamide [Imodium A-D] 2 mg capsule 2 mg PO Q6H PRN (Reason: Diarrhea) gabapentin 100 mg capsule 100 mg PO DAILY Rx Instructions: qod nitroglycerin 0.4 mg tablet, sublingual 0.4 mg SUBLINGUAL Q5-15M Qty: 30 0RF pantoprazole 40 mg tablet,delayed release (DR/EC) 40 mg PO DAILY Patient Comments: TAKE 1 TABLET BY MOUTH EVERY MORNING BEFORE MEALS levothyroxine 100 mcg tablet 100 mcg PO DAILY tramadol 50 mg tablet 25 - 50 mg PO TID PRN PRN (Reason: pain) metoprolol tartrate 25 mg tablet 25 mg PO BID Qty: 180 3RF amlodipine 5 mg tablet 5 mg PO DAILY Qty: 90 3RF spironolactone 25 mg tablet 25 mg PO DAILY Qty: 90 3RF Primary Care Provider: Charles Haddad Referrals: Charles Haddad DO [Primary Care Provider] - Karlos Ziegler MD [Med Staff - Active Staff] - 1 Week Activity Restrictions/Additional Instructions: Left knee x-ray infrapatellar fracture nondisplaced. Keep knee immobilizer to help with comfort. X-ray your left femur hardware intact. Use walker. CT of your head cervical spine thoracic lumbar spine with no acute findings. Pelvic x-ray negative. Labs negative. Chest x-ray negative. Urine negative. Continue your tramadol at home for pain control. Follow-up with Dr. Karlos Ziegler your orthopedist. Print Language: Slovak Disposition Disposition: Home, Self Care Discharge Date/Time: 10/06/24 05:16
[2024-10-06 00:03] VITALS: O2SAT 92
[2024-10-06 00:15] LABS: International Normalized Ratio 1.2; Prothrombin Time (Protime)PT. 15.8 SECONDS (11.7-14.9)
[2024-10-06 00:18] LABS: Absolute Lymphocyte Count 0.85 X10^3/uL (0.83-4.51); Absolute Neutrophil Count 10.5 X10^3/uL (2.0-7.7); Basophil# 0.02 X10^3/uL; Basophil% 0.2 % (0-1); Eosinophil# 0.11 X10^3/uL; Eosinophils% 0.9 % (0-5); Hematocrit 36.1 % (37-47); Hemoglobin 11.8 g/dL (12.0-15.0); Lymphocyte # 0.85 X10^3/ul (0.83-4.51); Lymphocyte % 6.8 % (19-41); Mean Corp Hgb Conc 32.7 g/dL (32-36); Mean Corpuscular Hgb 30.8 pg (27.0-32.0); Mean Corpuscular Volume 94.3 fL (81-99); Mean Platelet Vol. 10.8 fl (6.2-12.0); NRBC Flagged by Analyzer 0 % (0-5); Neutrophil # 10.45 X10^3/uL (2.7-7.7); Neutrophil % 83.6 % (47-70); Platelet Count 264 K/mm3 (150-450); RBC Distribution Width CV 12.5 % (11.6-14.6); RBC Distribution Width SD 43.2 fl (35.1-43.9); Red Blood Count 3.83 M/mm3 (4.2-5.4); White Blood Count 12.5 K/mm3 (4.4-11.0)
[2024-10-06 00:28] LABS: ALB/GLOB Ratio 0.9 RATIO (0.9-2.4); AST(SGOT) 17 U/L (15-37); Alanine Aminotransfer ALT/SGPT 13 U/L (13-56); Albumin, Serum 3.4 g/dL (3.2-5.0); Alkaline Phosphatase 45 U/L (45-117); Anion Gap 7 (5-15); BUN 21 mg/dL (7-18); BUN/Creat Ratio 20.4 RATIO (10-20); Calcium,Total 9.1 mg/dL (8.5-10.1); Chloride 105 mmol/L (98-107); Creatinine, Serum 1.03 mg/dL (0.55-1.02); EST Glomerular Filtration Rate 54 mL/min (>60); Est Glom Filt Rate - Afr Amer 65 mL/min (>60); Estimated Creatinine Clearance 30.27 ml/min; Globulin 3.6 g/dL (2.2-4.2); Glucose 122 mg/dL (74-106); Potassium 4.1 mmol/L (3.5-5.1); Sodium Level 136 mmol/L (136-145)
[2024-10-06 01:53] LABS: Squamous Epithelial Cells - UA 0 SEEN /hpf (5-10)
[2024-10-06 01:56] LABS: Color, Urine Yellow (Yellow); Glucose, Dipstick Normal (Normal); Ketone-Dipstick Negative (Negative); Leukocyte Esterase-Dipstick Negative /ul (Negative); Nitrite-Dipstick Negative (Negative); Occult Blood-Urine Negative /ul (Negative); Protein-Dipstick 30 mg/dl (Negative); Urine Bilirubin Dipstick Negative (Negative); Urine Clarity Sl. Cloudy (Clear); Urine Urobilinogen 1 mg/dl (Normal)
[2024-10-06 02:21] VITALS: BP 114/44; PULSE 63; RESP 18; O2SAT 93
[2024-10-06 02:28] LABS: Red Blood Cells-Urine 0 SEEN /hpf (0-5); White Blood Cells 0-5 SEEN /hpf (0-5)
[2024-10-06 02:29] LABS: Bacteria 3+ /hpf (None Seen); Mucous, Urine 1+ /hpf (<or=2+)
[2024-10-06 05:15] VITALS: BP 114/65; PULSE 80; RESP 18; TEMP 36.7; O2SAT 94
--- NOTE | 2024-10-06 11:30 | CM.ED ---
Social Work Received call from patient's daughter Balbina Almeida, who was able to identify patient's age, , and specifics about patient's ED visit on 10.05.24. Daughter reports having a hard time taking care of patient at home, since leaving the ED last night; referenced that was given the opportunity to have patient stay last evening, to have patient evaluated for placement somewhere but patient/family wanted to try things at home. Balbina reports since patient has returned home, there has been difficulty in managing patient's needs. Balbina reports patient's older daughter has been helping but even with this, care is too great for family alone. Balbina reports interest in patient going somewhere for more care, for a short period of time. Balbina reports patient has also commented belief that [facility] is not able to meet patient's needs. Educated to SNF benefits through [facility] and need for 3 night inpatient stay to tap into the insurance benefits. Educated that having an inpatient stay is not a guarantee if patient was brought back to hospital; that inpatient versus observation is based on medical necessity. Educated to approximate self pay cost for SNF, as well as many SNFs asking for 30 days payment up front. Balbina reports really wants to use patient's insurance, though patient has money for a short amount of time, but did not specify what the timeframe actually looks like. Educated to skilled HHC through [facility]. Educated to private duty HHC and that SW has a list can share of resources. Broached inpatient RU LOC, but reinforced this is a 3 hour a day of therapy requirement, in addition to other factors to qualify for the LOC. Explored whether there is enough family to take shifts caring for patient, so as to help Balbina with some of the caregiving responsibility right now. [facility] focused on wanting the insurance to pay for care. SW reinforced several times, that if patient does not require a 3 night inpatient stay, further care in a nursing facility will be private pay. Balbina expressed much appreciation for SW taking time to answer questions and go over options. Balbina reports will likely bring patient into the ED to have patient re-evaluated, as truly feel that cannot meet patient's needs (and not willing to pursue placement from community on chance that patient may be able to tap into insurance benefits for care). Daughter able to repeat back understanding that patient may have to pay for NF stay if does not need to be admitted for care. Let Balbina know that if thinks of other questions can call back in. Handoff to STACEY Mcgovern, who is working in the ED today, 10.06.24, should patient indeed arrive back to the ED for evaluation of medical needs. -PAULETTE Call
== END 2024-10-06 05:16 | disposition home or self-care (01) ==
PROVIDERS: Emergency Provider Emergency Medicine; PCP Preventive Medicine Occupational Medicine; Visit Provider Emergency Medicine
DX: S82.002A Unspecified fracture of left patella, initial encounter for closed fracture (principal); I48.0 Paroxysmal atrial fibrillation; W19.XXXA Unspecified fall, initial encounter; Y93.01 Activity, walking, marching and hiking; Y92.009 Unspecified place in unspecified non-institutional (private) residence as the place of occurrence of the external cause; R05.9 Cough, unspecified; R39.198 Other difficulties with micturition; F32.A Depression, unspecified; K21.9 Gastro-esophageal reflux disease without esophagitis; E03.9 Hypothyroidism, unspecified; I25.10 Atherosclerotic heart disease of native coronary artery without angina pectoris; I12.9 Hypertensive chronic kidney disease with stage 1 through stage 4 chronic kidney disease, or unspecified chronic kidney disease; N18.9 Chronic kidney disease, unspecified; E78.5 Hyperlipidemia, unspecified; M54.9 Dorsalgia, unspecified; M79.7 Fibromyalgia; M40.204 Unspecified kyphosis, thoracic region; G89.29 Other chronic pain; Z95.5 Presence of coronary angioplasty implant and graft; Z79.82 Long term (current) use of aspirin; Z86.718 Personal history of other venous thrombosis and embolism; Z96.651 Presence of right artificial knee joint; Z96.642 Presence of left artificial hip joint; Z79.899 Other long term (current) drug therapy; Z98.890 Other specified postprocedural states; Z79.890 Hormone replacement therapy
CPT/HCPCS: 70450; 71045; 72125; 72128; 72131; 72170; 73552; 73562; 73630; 80053; 81001; 85025; 85610; 85730; 87631; 96361; 96374; 96375; 99284; A4216; J2405

== ENCOUNTER 2024-10-06 13:04 | Emergency (ER) | payer MEDICARE, OTHER, SELFPAY ==
[2024-10-06 13:05] VITALS: BP 125/77; PULSE 82; RESP 16; TEMP 36.6; O2SAT 99
--- NOTE | 2024-10-06 14:15 | EDS_ITS ---
HPI History of Present Illness Chief Complaint: General Illness Informant: patient and family Narrative Narrative: 89-year-old female sustained a fall on Sunday night coming down injuring her left knee. She was seen in the emergency room late last night was diagnosed with a patellar fracture displaced and knee immobilizer. Family returns with her today was that inability to care for home. Patient is having difficulty getting up and down. She is having problems utilizing the bathroom. Patient blood work last night showed a mild leukocytosis at 12. There were no significant electrolyte abnormalities or AMNA. Urinalysis was negative for infection. She tested negative for COVID influenza RSV. Trauma scans and further x-ray imaging did not reveal any other fractures. Family called and spoke with social work prior to their arrival. Patient has chronic back and hip pain. Family notes that those symptoms are more swollen last night but is better today and had negative x-rays last night. [facility] Medical History (HFpEF) heart failure with preserved ejection fraction Osteoarthritis of hip (12/25/16) Chronic kidney disease (CKD) Weakness generalized COVID-19 (12/2020) EE (eosinophilic esophagitis) Paroxysmal atrial fibrillation Syncope (03/2019) Bilateral pleural effusion Chronic renal insufficiency Hiatal hernia Secondary pulmonary arterial hypertension Osteoarthritis Depression GERD (gastroesophageal reflux disease) Hypothyroidism Fibromyalgia Deep vein thrombosis (DVT) (04/2012) Atherosclerosis of coronary artery of [place] heart without angina pectoris Essential (primary) hypertension Hyperlipidemia Home Medications ?Medication ?Instructions ?Recorded ?Last Taken ?Type aspirin 81 mg tablet,delayed 81 mg PO DAILY 04/24/19 0 01/10/21 09:30 History release (Adult Aspirin Regimen) pantoprazole 40 mg tablet,delayed 40 mg PO DAILY 01/1010/30/22 History release loperamide 2 mg capsule (Imodium 2 mg PO Q6H PRN Diarr hea 04/18/22 Unknown History A-D) sertraline 50 mg tablet 50 mg PO DAILY 04/18/22 Unkn own History tramadol 50 mg tablet 25 - 50 mg PO TID PRN PRN pa in 11/27/23 Unknown History gabapentin 100 mg capsule 100 mg PO DAILY 12/07/23 Unk nown History metoprolol tartrate 25 mg tablet 25 mg PO BID #180 tab s 01/28/24 Unknown Rx levothyroxine 100 mcg tablet 100 mcg PO DAILY 02/17/24 Unknown History amlodipine 5 mg tablet 5 mg PO DAILY #90 TABLETS Unknown Rx nitroglycerin 0.4 mg sublingual 0.4 mg sublingual Q5-1 5M #30 tabs 04/10/24 Unknown Rx tablet spironolactone 25 mg tablet 25 mg PO DAILY #90 tabs Unknown Rx Allergy/AdvReac Type Severity Reaction Status Date / Time atorvastatin (From Lipitor) AdvReac myalgia Verified 10/06/24 13:08 oxycodone (From Percocet) AdvReac Unknown Verified 10/06/24 13:08 propoxyphene (From AdvReac Unknown Verified 10/06/24 13:08 Darvocet-N 100) Family History Father Heart disease CAD (coronary artery disease) Mother Heart disease Diabetes CVA (cerebral vascular accident) CAD (coronary artery disease) Surgical History History of loop recorder (05/05/19) History of thoracentesis History of appendectomy History of cataract surgery History of total knee arthroplasty History of bowel resection Hx of cholecystectomy History of left heart catheterization (03/23/17) History of hysterectomy History of spinal surgery History of hemiarthroplasty of left hip History of coronary artery stent placement (05/31/12) Social History household members: spouse housing: house Smoking Status: Never smoker alcohol intake: never substance use type: does not use ROS ROS ED Constitutional Constitutional ED: Denies chills or weight loss Eyes Eyes: Denies change in vision or diplopia ENT ENT ED: Denies ear pain, rhinorrhea or sore throat Cardiovascular Cardiovascular: Denies chest pain, orthopnea, palpitations or racing heartbeat Respiratory/Chest Respiratory/Chest: Denies cough, dyspnea or orthopnea Gastrointestinal Gastrointestinal: Denies abdominal pain, diarrhea, nausea or vomiting Genitourinary Genitourinary ED: Denies dysuria, hematuria or urinary frequency Musculoskeletal Musculoskeletal: Reports back pain and other Details: See history of present illness ; Denies arthralgias or myalgias Integumentary Denies abscess or rash Neurologic Neurologic: Denies headache(s) or weakness Psychiatric Psychiatric: Denies anxiety, depression, suicidal ideation or suicidal thoughts Endocrine Endocrinology: Denies polydipsia, polyphagia or polyuria Allergic/Immunologic Allergic/Immunologic ED: Denies mouth swelling, tongue swelling or urticaria EXAM Physical Exam Const Vital Signs: 10/06/24 13:05 10/06/24 13:19 Temperature 98 F Temperature Source Oral Pulse Rate 82 Respiratory Rate 16 Respiratory Effort Normal Non-Labored Respiratory Pattern Normal Blood Pressure 125/77 H Blood Pressure Mean 93 Pulse Ox 99 Oxygen Delivery Method Room Air Positive well nourished and well developed General Appearance ED: well developed and NAD HEENT Reports normocephalic, head/scalp atraumatic and moist mucous membranes Eyes PERRL and EOMs intact bilaterally Neck no lymphadenopathy, supple and no JVD Resp normal respiratory effort and clear to auscultation bilaterally Cardio regular rate, regular rhythm and no murmurs GI normal to inspection, nondistended, normoactive bowel sounds and non-tender Palpation: soft Back/Spine no CVA tenderness Extremity Extremity Narrative: Left leg is in a knee immobilizer. There is soft tissue swelling and ecchymosis around the knee. Left great toe does not appear significantly swollen erythematous. She has chronic changes related with arthritis. General Extremety ED: Negative for edema General Extremity: Negative for edema Neuro oriented x3 and CN's II-XII intact bilaterally Sensorium / Orientation: alert Motor Exam: strength 5/5 throughout Psych mental status grossly normal Mood & Affect: Negative for depressed or tearful Skin no rashes or lesions noted and no wounds MDM MDM MDM Narrative Medical decision making narrative: I reviewed the patient's previous emergency department visit last night. I spoke with social work. I do not believe the patient necessarily needs to be admitted to the hospital. They would like a referral to [facility] for rehabilitation and think she is very reasonable option. We are going to work towards that goal at this time. 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 Discharge Plan Triage Chief Complaint: General Illness ED Provider: Braydon Nathan Dx/Rx/DC Orders Clinical Impression: Patellar fracture Instructions: ED Patella Fracture Prescriptions: No Action aspirin [Adult Aspirin Regimen] 81 mg tablet,delayed release (DR/EC) 81 mg PO DAILY sertraline 50 mg tablet 50 mg PO DAILY loperamide [Imodium A-D] 2 mg capsule 2 mg PO Q6H PRN (Reason: Diarrhea) gabapentin 100 mg capsule 100 mg PO DAILY Rx Instructions: qod nitroglycerin 0.4 mg tablet, sublingual 0.4 mg SUBLINGUAL Q5-15M Qty: 30 0RF pantoprazole 40 mg tablet,delayed release (DR/EC) 40 mg PO DAILY Patient Comments: TAKE 1 TABLET BY MOUTH EVERY MORNING BEFORE MEALS levothyroxine 100 mcg tablet 100 mcg PO DAILY tramadol 50 mg tablet 25 - 50 mg PO TID PRN PRN (Reason: pain) metoprolol tartrate 25 mg tablet 25 mg PO BID Qty: 180 3RF amlodipine 5 mg tablet 5 mg PO DAILY Qty: 90 3RF spironolactone 25 mg tablet 25 mg PO DAILY Qty: 90 3RF Primary Care Provider: Charles Haddad Referrals: Charles Haddad DO [Primary Care Provider] - Print Language: [place] Citizen Disposition Disposition: Longterm Facility
[2024-10-06 15:04] VITALS: BP 118/65; PULSE 87; O2SAT 99
[2024-10-06 17:00] VITALS: BP 130/65
[2024-10-06 17:01] VITALS: BP 130/65; PULSE 68; RESP 16; TEMP 36.8; O2SAT 99
--- NOTE | 2024-10-06 18:57 | CM.ED ---
Social Work SW met with patient and family regarding discharge options. Patient and family would like SNF placement. SW explained process and potential cost, family and patient in agreement with private pay at a nursing facility. Family and patient first choice was [facility], patient was declined due to no beds. Second choice was [facility], patient was accepted. All necessary paperwork sent via [employer], PASRR completed and also sent in Careport. Patient and family chose to transport via private vehicle. Facility aware of discharge time. No further needs identified at this time. Shaniqua Sorto, OFFICE SERVICES SPECIALIST, MAKE UP EDITOR
== END 2024-10-06 17:23 ==
PROVIDERS: Emergency Provider Emergency Medicine; PCP Preventive Medicine Occupational Medicine; Visit Provider Emergency Medicine
DX: S82.002A Unspecified fracture of left patella, initial encounter for closed fracture (principal); I13.0 Hypertensive heart and chronic kidney disease with heart failure and stage 1 through stage 4 chronic kidney disease, or unspecified chronic kidney disease; I50.20 Unspecified systolic (congestive) heart failure; I48.0 Paroxysmal atrial fibrillation; W19.XXXA Unspecified fall, initial encounter; N18.9 Chronic kidney disease, unspecified; F32.A Depression, unspecified; K21.9 Gastro-esophageal reflux disease without esophagitis; E03.9 Hypothyroidism, unspecified; E78.5 Hyperlipidemia, unspecified; I25.10 Atherosclerotic heart disease of native coronary artery without angina pectoris; M79.7 Fibromyalgia; M54.9 Dorsalgia, unspecified; M25.552 Pain in left hip; G89.29 Other chronic pain; Z95.5 Presence of coronary angioplasty implant and graft; Z86.718 Personal history of other venous thrombosis and embolism; Z79.82 Long term (current) use of aspirin; Z79.890 Hormone replacement therapy; Z79.899 Other long term (current) drug therapy; Z96.642 Presence of left artificial hip joint
CPT/HCPCS: 99282

== ENCOUNTER → 2024-10-08 | Outpatient (REF) | payer MEDICARE, OTHER, SELFPAY ==
[2024-10-08 08:25] LABS: Hematocrit 31.6 % (37-47); Hemoglobin 9.9 g/dL (12.0-15.0); Mean Corp Hgb Conc 31.3 g/dL (32-36); Mean Corpuscular Hgb 30.1 pg (27.0-32.0); Mean Platelet Vol. 11.7 fl (6.2-12.0); Platelet Count 271 K/mm3 (150-450); RBC Distribution Width CV 12.3 % (11.6-14.6); RBC Distribution Width SD 42.7 fl (35.1-43.9); Red Blood Count 3.29 M/mm3 (4.2-5.4); White Blood Count 7.7 K/mm3 (4.4-11.0)
[2024-10-08 09:22] LABS: ALB/GLOB Ratio 1.3 RATIO (0.9-2.4); AST(SGOT) 20 U/L (<=31); Alanine Aminotransfer ALT/SGPT 6 U/L (<=34); Albumin, Serum 3.4 g/dL (3.4-4.8); Alkaline Phosphatase 38 U/L (35-104); Anion Gap 10 (5-15); BUN 23 mg/dL (4-19); BUN/Creat Ratio 22.9 RATIO (10-20); Calcium 8.7 mg/dL (7.6-11.0); Carbon Dioxide 23.6 mmol/L (22.0-29.0); Chloride 106 mmol/L (96-108); EST Glomerular Filtration Rate 54 (>60); Globulin 2.6 g/dL (2.2-4.2); Glucose 90 mg/dL (70-99); Potassium 4.5 mmol/L (3.3-5.1); Protein, Total 6.1 g/dL (5.9-8.4); Sodium Level 139 mmol/L (133-145); Total Bilirubin 0.53 mg/dL (0.00-1.30)
== END ==
LOC: OLS.ACH 05:22
PROVIDERS: PCP Preventive Medicine Occupational Medicine; Visit Provider Internal Medicine
DX: N18.9 Chronic kidney disease, unspecified (principal); S82.002D Unspecified fracture of left patella, subsequent encounter for closed fracture with routine healing
CPT/HCPCS: 36415; 80053; 85027

== ENCOUNTER 2024-11-27 17:46 | Observation (INO) | payer MEDICARE, OTHER, SELFPAY ==
[2024-11-27] VITALS (17 sets, daily range): BP systolic 133–180; BP diastolic 69–81; PULSE 61–88; RESP 11–20; TEMP 36.4–37.7; O2SAT 95–99; BMI 22.6; BMI 21.5
--- NOTE | 2024-11-27 18:54 | RAD_ITS ---
PROCEDURE: SHOULDER MIN 2 VIEWS 11/27/2024 REASON FOR EXAM: TRAUMA TECHNIQUE: 3 view(s) of the left shoulder FINDINGS: Bones: Acute comminuted inferiorly displaced fracture of the distal left clavicle. Joints: Normal alignment of the acromioclavicular and glenohumeral joints. Soft tissues: Soft tissues are unremarkable. Other: RAD/Shoulder min 2 Views IMPRESSION: Acute comminuted inferiorly displaced fracture of the distal left clavicle. Reading Location: [id number]
--- NOTE | 2024-11-27 18:54 | CT_ITS ---
PROCEDURE: SPINE THORACIC WITHOUT CONTRAS REASON FOR EXAM: FALL, PAIN TECHNIQUE: Thoracic spine CT without contrast. Coronal and Sagittal reconstruction series were provided. One or more dose reduction techniques were used (e.g., Automated exposure control, adjustment of the mA and/or kV according to patient size, use of iterative reconstruction technique). RADIATION DOSE SUMMARY: CTDlvol: 18 mGy DLP: 623 mGycm COMPARISON: CT thoracic spine dated 10/06/2024 FINDINGS: Alignment: Hyperkyphosis of the thoracic spine. Bones: Multilevel compression fracture deformity of the thoracic vertebral body, with vertebroplasty involving T5, T7, T9 and T10 vertebral bodies. Overall this is stable in comparison to the prior study. No new fractures are demonstrated. Soft Tissues: Large hiatal hernia with circumferential wall thickening of the distal esophagus. Other: Patchy bibasilar pulmonary airspace opacities, concerning for infiltrates, as well as scattered bilateral areas of atelectasis/scarring. Biapical focal area of pleural thickening/scarring. Extensive atherosclerotic calcification of the thoracic aorta. CT/Spine Thoracic without Contras IMPRESSION: No acute fracture or subluxation. Extensive compression fracture deformity of the thoracic spine as described abo ve. Large hiatal hernia with circumferential wall thickening of the distal esophagu s. Esophagram may be helpful for further characterization. Patchy bibasilar pulmonary infiltrates. Reading Location: [facility]
--- NOTE | 2024-11-27 18:55 | EKG12_ITS ---
Test Reason : DYSRHYTHMIA Blood Pressure : */* mmHG Vent. Rate : 60 BPM Atrial Rate : 60 BPM P-R Int : 156 ms QRS Dur : 86 ms QT Int : 418 ms P-R-T Axes : 21 -15 42 degrees QTcB Int : 418 ms Normal sinus rhythm Minimal voltage criteria for LVH, may be normal variant ( Otter product ) Borderline ECG Confirmed by Jose Earl ([id number]), features editor KAITLIN SMITH ([id number]) on 11/28/2024 12:47:15 PM Referred By: Confirmed By: Jose Earl
--- NOTE | 2024-11-27 19:11 | EDS_ITS ---
HPI History of Present Illness Chief Complaint: Syncope Narrative Narrative: 89-year-old female presents with her daughter because of possible syncopal episode/fall. She is currently being treated by Dr. Karlos Ziegler for left patellar fracture. She is in a knee immobilizer for this but her daughter states that they have been exercising her out of the brace recently. Her daughter relays history that she left for a hair appointment, that when she arrived home found her mother on the floor on her back. Patient stated to her that she must have passed out but it was only 10 minutes before she got home. She was unable to get up by herself. Patient denies any prodromal symptoms, but states she is having pain in her back where she is severely kyphotic, and pain in her left shoulder. She is left-hand dominant. [facility] Medical History (HFpEF) heart failure with preserved ejection fraction Osteoarthritis of hip (12/25/16) Chronic kidney disease (CKD) Weakness generalized COVID-19 (12/2020) EE (eosinophilic esophagitis) Paroxysmal atrial fibrillation Syncope (03/2019) Bilateral pleural effusion Chronic renal insufficiency Hiatal hernia Secondary pulmonary arterial hypertension Osteoarthritis Depression GERD (gastroesophageal reflux disease) Hypothyroidism Fibromyalgia Deep vein thrombosis (DVT) (04/2012) Atherosclerosis of coronary artery of [place] heart without angina pectoris Essential (primary) hypertension Hyperlipidemia Home Medications ?Medication ?Instructions ?Recorded ?Last Taken ?Type aspirin 81 mg tablet,delayed 81 mg PO DAILY 04/24/19 0 01/10/21 09:30 History release (Adult Aspirin Regimen) pantoprazole 40 mg tablet,delayed 40 mg PO DAILY 01/1010/30/22 History release loperamide 2 mg capsule (Imodium 2 mg PO Q6H PRN Diarr hea 04/18/22 Unknown History A-D) sertraline 50 mg tablet 50 mg PO DAILY 04/18/22 Unkn own History tramadol 50 mg tablet 25 - 50 mg PO TID PRN PRN pa in 11/27/23 Unknown History gabapentin 100 mg capsule 100 mg PO DAILY 12/07/23 Unk nown History metoprolol tartrate 25 mg tablet 25 mg PO BID #180 tab s 01/28/24 Unknown Rx levothyroxine 100 mcg tablet 100 mcg PO DAILY 02/17/24 Unknown History amlodipine 5 mg tablet 5 mg PO DAILY #90 TABLETS Unknown Rx nitroglycerin 0.4 mg sublingual 0.4 mg sublingual Q5-1 5M #30 tabs 04/10/24 Unknown Rx tablet spironolactone 25 mg tablet 25 mg PO DAILY #90 tabs Unknown Rx denosumab 60 mg/mL subcutaneous 60 mg subcut [id number] 11/26/24 Unknown History syringe (Prolia) ibuprofen 400 mg tablet 400 mg PO TID PRN pain 11/26 Unknown History Allergy/AdvReac Type Severity Reaction Status Date / Time atorvastatin (From Lipitor) AdvReac myalgia Verified 11/27/24 17:55 oxycodone (From Percocet) AdvReac Unknown Verified 11/27/24 17:55 propoxyphene (From AdvReac Unknown Verified 11/27/24 17:55 Darvocet-N 100) Family History Father Heart disease CAD (coronary artery disease) Mother Heart disease Diabetes CVA (cerebral vascular accident) CAD (coronary artery disease) Surgical History History of loop recorder (05/05/19) History of thoracentesis History of appendectomy History of cataract surgery History of total knee arthroplasty History of bowel resection Hx of cholecystectomy History of left heart catheterization (03/23/17) History of hysterectomy History of spinal surgery History of hemiarthroplasty of left hip History of coronary artery stent placement (05/31/12) Social History household members: spouse housing: house Smoking Status: Never smoker alcohol intake: never substance use type: does not use ROS ROS ED ROS Narrative Review of systems positive for questionable syncopal episode. Positive left shoulder pain. Positive back pain in the upper portion of back. No headache, but did hit head and fall. Denies blood thinners. Positive left knee pain secondary to previous patellar fracture, but denies new injury as she states she was wearing her knee immobilizer when she fell/passed out. EXAM Physical Exam Narrative Exam Narrative: GCS 15. ABCs intact. HEENT examination shows no crepitance of skull, PERRL, EOMI. Neck soft and supple without meningismus. Left shoulder shows ecchymosis anteriorly with diffuse tenderness to palpation but no crepitance. Palpable radial pulse, left. Cardiovascular examination regular rate and rhythm. Lungs clear to auscultation bilaterally anteriorly. Abdomen soft and nontender without guarding or rebound. Positive bowel sounds. Left knee is in immobilizer. Upon partial removal, no evidence of ecchymosis, no tenderness. Able to lift leg off bed. Neurovascularly intact distally. No crepitance. Const Vital Signs: 11/27/24 17:47 11/27/24 17:57 11/27/24 18:13 Temperature 97.6 F L Temperature Source Oral Pulse Rate 64 62 Respiratory Rate 13 11 L Respiratory Effort Normal Non-Labored Respiratory Pattern Normal Blood Pressure 180/81 H Blood Pressure Mean 114 Pulse Ox 98 97 Oxygen Delivery Method Room Air 11/27/24 18:15 11/27/24 18:30 11/27/24 18:45 Temperature Temperature Source Pulse Rate 65 64 61 Respiratory Rate 16 13 Respiratory Effort Respiratory Pattern Blood Pressure 178/77 H 176/74 H Blood Pressure Mean 106 101 Pulse Ox 99 97 96 Oxygen Delivery Method 11/27/24 19:00 11/27/24 19:15 11/27/24 19:30 Temperature Temperature Source Pulse Rate 61 66 61 Respiratory Rate 15 14 20 H Respiratory Effort Respiratory Pattern Blood Pressure 166/73 H 170/75 H 162/75 H Blood Pressure Mean 99 104 100 Pulse Ox 99 99 97 Oxygen Delivery Method 11/27/24 20:00 11/27/24 20:09 11/27/24 20:15 Temperature Temperature Source Pulse Rate Respiratory Rate 16 Respiratory Effort Respiratory Pattern Blood Pressure 171/76 H 174/75 H Blood Pressure Mean 99 103 Pulse Ox 97 Oxygen Delivery Method 11/27/24 20:30 11/27/24 20:45 11/27/24 21:00 Temperature Temperature Source Pulse Rate 61 88 Respiratory Rate 11 L 19 H Respiratory Effort Respiratory Pattern Blood Pressure 133/74 H 142/78 H 154/69 H Blood Pressure Mean 92 96 90 Pulse Ox 95 Oxygen Delivery Method MDM MDM MDM Narrative Medical decision making narrative: Concern is for injuries during her fall versus syncopal episode. The differential diagnosis does include syncopal episode, intracranial hemorrhage, shoulder fracture versus dislocation versus fracture dislocation versus contusion. I do not have concern for new fracture of her left lower extremity, and I offered to x-ray her left knee, but the patient declined as she reaffirms that she was wearing her knee brace. However, her daughter is concerned that she may have a new injury. I reviewed her laboratory work and she has normal white count 5.2 with hemoglobin normal at 12.0, hematocrit 36.5, platelet count 233. BMP is remarkable for sodium of 140 and normal with normal potassium, BUN 17 and creatinine 1.19. Glucose 91. EKG obtained and interpreted by myself independently as normal sinus rhythm at 60 bpm without ectopy or acute ST changes. I reviewed the radiology report of the CT of the brain and there is no acute intracranial hemorrhage. I also reviewed the radiology reports for the C, T, and L-spine and there are no acute fractures noted, but she does have the old compression fractures that appear stable. X-ray of the left knee interpreted by myself independently shows no evidence of an acute fracture, there is the healing patellar fracture. I reviewed the radiology report which confirms my independent interpretation. X-ray of the left shoulder shows no dislocation but there is a clavicular fracture noted. I reviewed the radiology report which confirms my independent interpretation. I did do individual clavicle x-rays, and on my interpretation of the dedicated clavicle films, there is a comminuted with inferior displacement left close clavicular fracture. I reviewed the radiology report which also confirms my independent interpretation. At this point in time, her urinalysis is still pending. She will be placed in a sling given her clavicle fracture, but given her knee immobilizer as well, in discussion with her daughter, she is unable to care for her as she has 2 limbs that are immobilized. She was recently discharged from rehab. Given her clinical situation, I will discuss the patient with Dr. Gale for at least observation versus admission for probable placement back into rehabilitation. In discussion with Dr. Gale, she will be assigned observation on the general medical floor. Patient is in stable condition. History & Record Review Discussion w/independent historian: Patient and Family Additional record(s) reviewed:: Prior ED visit and Prior labs Lab Data Attestation: I reviewed the patient's lab results. Labs: Laboratory Results - last 24 hr 11/27/24 18:08 WBC 5.2 RBC 3.97 L Hgb 12.0 Hct 36.5 L MCV 91.9 MCH 30.2 MCHC 32.9 RDW Std Deviation 43.1 RDW Coeff of Gabi 12.8 Plt Count 233 MPV 12.1 H Immature Gran % (Auto) 1.200 H Neut % (Auto) 59.3 Lymph % (Auto) 23.8 Dickenson % (Auto) 12.2 H Eos % (Auto) 2.5 Baso % (Auto) 1.0 Absolute Neuts (auto) 3.1 Absolute Lymphs (auto) 1.23 Nucleated RBC % 0 Sodium 140 Potassium 4.4 Chloride 104 Carbon Dioxide 24.0 Anion Gap 11 BUN 17 Creatinine 1.19 Estim Creat Clear Calc 23.47 L Est GFR (MDRD) Non-Af 44 L BUN/Creatinine Ratio 14.3 Glucose 91 Calcium 9.5 Radiography Diagnostic Testing: Clinical Impression(s) from Imaging Studies Shoulder X-Ray 11/27/24 18:54 IMPRESSION: Acute comminuted inferiorly displaced fracture of the distal left clavicle. Reading Location: [facility] Thoracic Spine CT 11/27/24 18:54 IMPRESSION: No acute fracture or subluxation. Extensive compression fracture deformity of the thoracic spine as described above. Large hiatal hernia with circumferential wall thickening of the distal esophagus. Esophagram may be helpful for further characterization. Patchy bibasilar pulmonary infiltrates. Reading [facility] Brain CT 11/27/24 19:16 IMPRESSION: NO ACUTE INTRACRANIAL HEMORRHAGE Reading Location[facility] Knee X-Ray 11/27/24 19:16 IMPRESSION: No change in healing fracture of the patella. No new fracture. Moderate arthrosis. Reading Location: [id number] Lumbar Spine CT 11/27/24 19:25 IMPRESSION: No acute fracture or subluxation. Multiple chronic compression fractures with vertebroplasty at L1. Degenerative disc disease as described above. Reading Location: [id number] Cervical Spine CT 11/27/24 19:30 IMPRESSION: No acute fracture. Slight anterolisthesis of C4 on C5. Reading Location: [facility] Clavicle X-Ray 11/27/24 20:01 IMPRESSION: Acute comminuted inferiorly displaced fracture of the distal left clavicle. Reading Location: [id number] Discharge Plan Dx/Rx/DC Orders Clinical Impression: Fall, Closed fracture of left clavicle, Immobility Disposition Disposition: Acute Care Hospital [facility]
--- NOTE | 2024-11-27 19:16 | CT_ITS ---
PROCEDURE: BRAIN/HEAD WITHOUT CONTRAST 11/27/2024 REASON FOR EXAM: TRAUMA TECHNIQUE: Head CT without intravenous contrast. Coronal and Sagittal reconstruction series were provided. One or more dose reduction techniques were used (e.g., Automated exposure control, adjustment of the mA and/or kV according to patient size, use of iterative reconstruction technique. RADIATION DOSE SUMMARY: CTDlvol: 45 mGy DLP: 829 mGycm COMPARISON: CT of the brain dated 10/06/2024 FINDINGS: Brain: Extensive low density in the deep cerebral white matter most likely represents advanced chronic small vessel ischemic disease. CSF Spaces: Moderate generalized cerebral atrophy Sinuses/Mastoids: Clear at visualized levels Bones: Unremarkable CT/Brain/Head without Contrast IMPRESSION: NO ACUTE INTRACRANIAL HEMORRHAGE Reading Location: [facility]
--- NOTE | 2024-11-27 19:16 | RAD_ITS ---
PROCEDURE: KNEE 1 OR 2 VIEWS 11/27/2024 REASON FOR EXAM: TRAUMA TECHNIQUE: 3 views of the left knee COMPARISON: 10/06/2024 FINDINGS: Bones: Healing non distracted transverse fracture of the patella. Joints: Moderate degenerative changes. Effusion: No effusion. Soft tissues: Calcified plaque in the left popliteal artery. Other: RAD/Knee 1 or 2 Views IMPRESSION: No change in healing fracture of the patella. No new fracture. Moderate arthrosis. Reading Location: [id number]
[2024-11-27 19:18] LABS: Absolute Lymphocyte Count 1.23 X10^3/uL (0.83-4.51); Absolute Neutrophil Count 3.1 X10^3/uL (2.0-7.7); Basophil# 0.05 X10^3/uL; Eosinophil# 0.13 X10^3/uL; Eosinophils% 2.5 % (0-5); Hematocrit 36.5 % (37-47); Lymphocyte # 1.23 X10^3/ul (0.83-4.51); Lymphocyte % 23.8 % (19-41); Mean Corp Hgb Conc 32.9 g/dL (32-36); Mean Corpuscular Hgb 30.2 pg (27.0-32.0); Mean Corpuscular Volume 91.9 fL (81-99); Mean Platelet Vol. 12.1 fl (6.2-12.0); Monocyte# 0.63 X10^3/uL; Monocyte% 12.2 % (0-10); NRBC Flagged by Analyzer 0 % (0-5); Neutrophil # 3.07 X10^3/uL (2.7-7.7); Neutrophil % 59.3 % (47-70); Platelet Count 233 K/mm3 (150-450); RBC Distribution Width CV 12.8 % (11.6-14.6); RBC Distribution Width SD 43.1 fl (35.1-43.9); Red Blood Count 3.97 M/mm3 (4.2-5.4); White Blood Count 5.2 K/mm3 (4.4-11.0)
--- NOTE | 2024-11-27 19:25 | CT_ITS ---
PROCEDURE: SPINE LUMBAR WITHOUT CONTRAST 11/27/2024 REASON FOR EXAM: FALL, PAIN TECHNIQUE: Lumbar spine CT without contrast. Coronal and Sagittal reconstruction series were provided. One or more dose reduction techniques were used (e.g., Automated exposure control, adjustment of the mA and/or kV according to patient size, use of iterative reconstruction technique COMPARISON: 10/06/2024 FINDINGS: Vertebrae: Chronic moderate wedge compression fracture of L1 treated with vertebroplasty. Chronic moderate wedge compression fracture of L2 with concavity of the inferior endplate. Chronic mild compression fracture of L3 with concavity of the inferior endplate. Chronic mild compression fracture of L5. All of these fractures are unchanged when compared with the prior study. There is some retropulsion of the superior endplate of L1 in the inferior endplate of L2 which are also unchanged. No acute fracture line. Alignment: Anatomic alignment. L1-2: No spinal stenosis or neural foraminal stenosis. L2-3: No change in mild retropulsion of the inferior endplate of L2 which produces mild central spinal stenosis. No neural foraminal stenosis. L3-4: Mild bilateral facet hypertrophy and ligamentum flavum hypertrophy. Mild broad disc protrusion produces mild spinal stenosis and mild bilateral neural foraminal stenosis. L4-5: Mild bilateral facet hypertrophy and ligamentum flavum hypertrophy. Moderate broad disc protrusion produces moderate spinal stenosis and moderate bilateral neural foraminal stenosis. L5-S1: No spinal stenosis or neural foraminal stenosis. Sacrum: No acute fracture. CT/Spine Lumbar without Contrast IMPRESSION: No acute fracture or subluxation. Multiple chronic compression fractures with vertebroplasty at L1. Degenerative disc disease as described above. Reading Location: [id number]
--- NOTE | 2024-11-27 19:30 | CT_ITS ---
PROCEDURE: SPINE CERVICAL WITHOUT CONTRAS 11/27/2024 REASON FOR EXAM: TRAUMA TECHNIQUE: Cervical spine CT without contrast. Coronal and Sagittal reconstruction series were provided. One or more dose reduction techniques were used (e.g., Automated exposure control, adjustment of the mA and/or kV according to patient size, use of iterative reconstruction technique RADIATION DOSE SUMMARY: CTDlvol: 16 mGy DLP: 285 mGycm COMPARISON: CT of the cervical spine dated 10/06/2024 FINDINGS: Alignment: Hyperlordosis with slight anterolisthesis of C4 on C5. Discs: Multilevel narrowing of the intervertebral disc spaces. Vertebrae: No acute fracture. Cervical vertebral body heights are preserved. Multilevel uncovertebral arthropathy. Soft Tissues: No acute abnormality. Other: Carotid artery calcifications. CT/Spine Cervical without Contras IMPRESSION: No acute fracture. Slight anterolisthesis of C4 on C5. Reading Location: [facility]
--- NOTE | 2024-11-27 20:01 | RAD_ITS ---
PROCEDURE: CLAVICLE 11/27/2024 REASON FOR EXAM: TRAUMA, PAIN TECHNIQUE: 2 view(s) of each clavicle FINDINGS: Left CLAVICLE: Bones right: Acute comminuted inferiorly displaced fracture of the distal left clavicle. Joints right: No severe arthrosis. Soft tissues right: Unremarkable. : RAD/Clavicle IMPRESSION: Acute comminuted inferiorly displaced fracture of the distal left clavicle. Reading Location: [id number]
[2024-11-27 20:02] LABS: Anion Gap 11 (5-15); BUN 17 mg/dL (4-19); BUN/Creat Ratio 14.3 RATIO (10-20); Calcium,Total 9.5 mg/dL (7.6-11.0); Chloride 104 mmol/L (98-108); Creatinine, Serum 1.19 mg/dL (0.70-1.20); EST Glomerular Filtration Rate 44 (>60); Estimated Creatinine Clearance 23.47 ml/min (50-250); Glucose 91 mg/dL (70-99); Potassium 4.4 mmol/L (3.3-5.1); Sodium Level 140 mmol/L (133-145)
--- NOTE | 2024-11-27 21:35 | HP.PCM.HOS_ITS ---
HPI - General General Date of Admission: 11/27/24 Date of Service: 11/27/24 Chief Complaint: Fall with left shoulder pain HPI Narrative DARRYL MAYERS, is a 89 F who presented to [facility] ED on 11/27/24 with left shoulder pain after a fall at home. Patient lives at home with her daughter. Has been following with Dr. Karlos Ziegler for recent left patellar fracture. Patient was seen in our ED in late September for this patellar fracture and was discharged home, but per patient and daughter she then required SNF placement and only returned back home a few days ago. She continues to wear left knee brace for the patellar fracture. Earlier today daughter was gone for only 10 to 15 minutes but came back to find patient on the floor. Patient was awake and alert at that time and it appears most consistent with a mechanical fall. She was unable to get up and had significant left shoulder pain, so EMS was called to bring patient in for further evaluation. In the ED she was mildly hypertensive but otherwise stable on room air. She was found on clavicle x-ray to have an acute comminuted inferior displaced fracture of the distal left clavicle. Given this fracture and acute on chronic debility, hospitalist was contacted for admission. I saw the patient at bedside in the ED, daughter was present. Patient was fatigued appearing but otherwise laying back comfortably in bed and in no acute distress. She is hard of hearing at baseline. She did answer some questions for me but primarily with short responses. She reported only mild left shoulder pain at rest currently but stated the pain significantly worsened with any movement. She otherwise denies any acute concerns at this time. [facility] Medical History (Updated 11/27/24 @ 21:48 by Albin Plummer MD) (HFpEF) heart failure with preserved ejection fraction Osteoarthritis of hip (12/25/16) Chronic kidney disease (CKD) Weakness generalized COVID-19 (12/2020) EE (eosinophilic esophagitis) Paroxysmal atrial fibrillation Syncope (03/2019) Bilateral pleural effusion Chronic renal insufficiency Hiatal hernia Secondary pulmonary arterial hypertension Osteoarthritis Depression GERD (gastroesophageal reflux disease) Hypothyroidism Fibromyalgia Deep vein thrombosis (DVT) (04/2012) Atherosclerosis of coronary artery of [place] heart without angina pectoris Essential (primary) hypertension Hyperlipidemia Home Medications ?Medication ?Instructions ?Recorded ?Last Taken ?Type aspirin 81 mg tablet,delayed 81 mg PO DAILY blood thin ner 04/24/19 01/10/21 09:30 History release (Adult Aspirin Regimen) pantoprazole 40 mg tablet,delayed 40 mg PO DAILY gerd 01/10/21 10/30/22 History release loperamide 2 mg capsule (Imodium 2 mg PO Q6H PRN Diarr hea 04/18/22 Unknown History A-D) sertraline 50 mg tablet 50 mg PO DAILY mood 04/18/22 Unknown History tramadol 50 mg tablet 25 - 50 mg PO TID PRN PRN pa in 11/27/23 Unknown History gabapentin 100 mg capsule 100 mg PO DAILY pain 4 Unknown History metoprolol tartrate 25 mg tablet 25 mg PO BID heart #1 80 tabs 01/28/24 Unknown Rx levothyroxine 100 mcg tablet 100 mcg PO DAILY thyroid 02/17/24 Unknown History amlodipine 5 mg tablet 5 mg PO DAILY bp #90 TABLETS 04/04/24 Unknown Rx nitroglycerin 0.4 mg sublingual 0.4 mg sublingual Q5-1 5M #30 tabs 04/10/24 Unknown Rx tablet spironolactone 25 mg tablet 25 mg PO DAILY water pill #90 tabs 07/14/24 Unknown Rx denosumab 60 mg/mL subcutaneous 60 mg subcut [id number] [id number] 11/26/24 Unknown History syringe (Prolia) ibuprofen 400 mg tablet 400 mg PO TID PRN pain 11/26 Unknown History Allergy/AdvReac Type Severity Reaction Status Date / Time atorvastatin (From Lipitor) AdvReac myalgia Verified 11/27/24 17:55 oxycodone (From Percocet) AdvReac Unknown Verified 11/27/24 17:55 propoxyphene (From AdvReac Unknown Verified 11/27/24 17:55 Darvocet-N 100) Family History Father Heart disease CAD (coronary artery disease) Mother Heart disease Diabetes CVA (cerebral vascular accident) CAD (coronary artery disease) Surgical History (Updated 11/27/24 @ 22:40 by Judy Sanchez) History of loop recorder (05/05/19) History of thoracentesis History of appendectomy History of cataract surgery History of total knee arthroplasty History of bowel resection Hx of cholecystectomy History of left heart catheterization (08/11/17) History of hysterectomy History of spinal surgery History of hemiarthroplasty of left hip History of coronary artery stent placement (05/31/12) Social History household members: spouse housing: house Smoking Status: Never smoker alcohol intake: never substance use type: does not use ROS Constitutional Constitutional: Reports fatigue and weakness; Denies chills or fever(s) Eyes Eyes: Denies change in vision Cardiovascular Cardiovascular: Denies chest pain Respiratory/Chest Respiratory/Chest: Denies shortness of breath at rest Gastrointestinal Gastrointestinal: Denies abdominal pain Musculoskeletal Musculoskeletal: Reports arthralgias; Denies myalgias Neurologic Neurologic: Denies dizziness or headache(s) Vital Signs Vital Signs Vital Signs: 11/27/24 17:47 11/27/24 17:57 11/27/24 18:13 Temperature 97.6 F L Temperature Source Oral Pulse Rate 64 62 Respiratory Rate 13 11 L Respiratory Effort Normal Non-Labored Respiratory Pattern Normal Blood Pressure 180/81 H Blood Pressure Mean 114 Pulse Ox 98 97 Oxygen Delivery Method Room Air 11/27/24 18:15 11/27/24 18:30 11/27/24 18:45 Temperature Temperature Source Pulse Rate 65 64 61 Respiratory Rate 16 13 Respiratory Effort Respiratory Pattern Blood Pressure 178/77 H 176/74 H Blood Pressure Mean 106 101 Pulse Ox 99 97 96 Oxygen Delivery Method 11/27/24 19:00 11/27/24 19:15 11/27/24 19:30 Temperature Temperature Source Pulse Rate 61 66 61 Respiratory Rate 15 14 20 H Respiratory Effort Respiratory Pattern Blood Pressure 166/73 H 170/75 H 162/75 H Blood Pressure Mean 99 104 100 Pulse Ox 99 99 97 Oxygen Delivery Method 11/27/24 20:00 11/27/24 20:09 11/27/24 20:15 Temperature Temperature Source Pulse Rate Respiratory Rate 16 Respiratory Effort Respiratory Pattern Blood Pressure 171/76 H 174/75 H Blood Pressure Mean 99 103 Pulse Ox 97 Oxygen Delivery Method 11/27/24 20:30 11/27/24 20:45 11/27/24 21:00 Temperature Temperature Source Pulse Rate 61 88 Respiratory Rate 11 L 19 H Respiratory Effort Respiratory Pattern Blood Pressure 133/74 H 142/78 H 154/69 H Blood Pressure Mean 92 96 90 Pulse Ox 95 Oxygen Delivery Method Weight Weight: 51 kg Body Mass Index (BMI) 22.6 Physical Exam Const alert and no apparent distress Constitutional Narrative: Elderly female, thin and somewhat chronically ill-appearing, hard of hearing, answering questions with short appropriate responses, otherwise laying back comfortably in bed and in no acute distress. General Appearance: cooperative and comfortable HEENT normocephalic, head/scalp atraumatic, nasal mucous membranes and turbinates normal and moist oral mucous membranes Eyes PERRL, EOMs intact bilaterally and conjunctivae normal Neck Neck Narrative: Left shoulder/clavicular tenderness to palpation. Did not attempt range of motion. Chest inspection of chest normal Resp normal respiratory effort, normal air movement, no use of accessory muscles and clear to auscultation bilaterally Cardio regular rate, regular rhythm, no murmurs and peripheral pulses 2+ throughout GI normal to inspection, nondistended, normoactive bowel sounds, soft to palpation, non-tender and non-distended Back/Spine normal ROM Extremity normal to inspection and no pedal edema Skin no rashes or lesions noted Psych mental status grossly normal Psych Narrative: Flat affect. Results Lab / Micro Data 11/27/24 18:08 11/27/24 18:08 Labs: Laboratory Results - last 24 hr 11/27/24 18:08: WBC 5.2, RBC 3.97 L, Hgb 12.0, Hct 36.5 L, MCV 91.9, MCH 30.2, MCHC 32.9, RDW Std Deviation 43.1, RDW Coeff of Gabi 12.8, Plt Count 233, MPV 12.1 H, Immature Gran % (Auto) 1.200 H, Neut % (Auto) 59.3, Lymph % (Auto) 23.8, Knox % (Auto) 12.2 H, Eos % (Auto) 2.5, Baso % (Auto) 1.0, Absolute Neuts (auto) 3.1, Absolute Lymphs (auto) 1.23, Nucleated RBC % 0, Sodium 140, Potassium 4.4, Chloride 104, Carbon Dioxide 24.0, Anion Gap 11, BUN 17, Creatinine 1.19, Estim Creat Clear Calc 23.47 L, Est GFR (MDRD) Non-Af 44 L, BUN/Creatinine Ratio 14.3, Glucose 91, Calcium 9.5 Imaging Radiology Impression Shoulder X-Ray 11/27/24 18:54 IMPRESSION: Acute comminuted inferiorly displaced fracture of the distal left clavicle. Reading Location: [id number] Thoracic Spine CT 11/27/24 18:54 IMPRESSION: No acute fracture or subluxation. Extensive compression fracture deformity of the thoracic spine as described above. Large hiatal hernia with circumferential wall thickening of the distal esophagus. Esophagram may be helpful for further characterization. Patchy bibasilar pulmonary infiltrates. Reading Location[facility] Brain [facility] 11/27/24 19:16 IMPRESSION: NO ACUTE INTRACRANIAL HEMORRHAGE Reading Location: [facility]IAN[facility]A Knee X-Ray 11/27/24 19:16 IMPRESSION: No change in healing fracture of the patella. No new fracture. Moderate arthrosis. Reading Location: [id number] Lumbar Spine CT 11/27/24 19:25 IMPRESSION: No acute fracture or subluxation. Multiple chronic compression fractures with vertebroplasty at L1. Degenerative disc disease as described above. Reading Location: [id number] Cervical Spine CT 11/27/24 19:30 IMPRESSION: No acute fracture. Slight anterolisthesis of C4 on C5. Reading Location: [facility] Clavicle X-Ray 11/27/24 20:01 IMPRESSION: Acute comminuted inferiorly displaced fracture of the distal left clavicle. Reading Location: [id number] Assessment & Plan Assessment/Plan (1) Fall: (2) Closed fracture of left clavicle: (3) Immobility: PLAN: Plan Patient is an 89-year-old female who presented [facility] ED on 11/27/24 with left shoulder pain and debility after a fall at home. 1. Acute on chronic debility secondary to fall with left clavicular fracture, recent left patellar fracture ? Admit under observation status to [facility]. PT/OT/case management consulted. Following with Dr. Ziegler with ortho for recent left patellar fracture, left knee brace remains in place. Required recent SNF stay for this, only returned back home with daughter a few days prior to this admission. Mechanical fall onto left shoulder at home. Left clavicular x-ray showed acute comminuted inferiorly displaced fracture of the distal left clavicle. No surgical intervention needed, sling in place. Will need close outpatient follow-up with orthopedics after discharge. Pain control with scheduled Tylenol, tramadol as needed, ibuprofen as needed and low-dose IV morphine as needed. Continue home scheduled gabapentin. 2. Mild creatinine elevation ? Creatinine 1.19 on admit, baseline appears to be around 0.9-1.0. Suspect secondary to mild dehydration. Small IV fluid bolus given on admission, follow- up a.m. BMP and monitor urine output. 3. Paroxysmal A-fib, history of CAD with stenting, hypertension ? Follows with outpatient cardiology, had office visit on 11/26. Not on anticoagulation with recent history of falls. Continue home aspirin, amlodipine, Lopressor and spironolactone. Chronic medical conditions: ? Depression: Stable. Continue home sertraline. ? GERD: Continue home PPI. ? Osteoporosis: Continue denosumab injections in outpatient setting. ? Hypothyroidism: Continue home Synthroid. DVT prophylaxis: Lovenox CODE STATUS: DNR CCA, DNI Expected disposition: Likely SNF, 1 to 2 days Total clinical time spent by myself addressing the patient's medical issues, reviewing all the data, and collaborating with patient's care team: 75 minutes. Charges/Coding Visit Charges Inpatient E&M: 78946 Init Hosp L3
[2024-11-27] MEDS: Acetaminophen 500 MG Tablet 1000 MG PO (22:50)
[2024-11-28] VITALS (8 sets, daily range): BP systolic 136–155; BP diastolic 66–80; PULSE 63–73; RESP 15–18; TEMP 36.4–36.9; O2SAT 93–99
[2024-11-28] MEDS: traMADol 50 MG Tablet PO ×2 (01:40→14:29)
[2024-11-28] MEDS: Morphine 2 MG/ML Syringe IV (04:14)
[2024-11-28] MEDS: Lactated Ringers 1,000 ML 250 ML IV (04:18)
[2024-11-28] MEDS: Acetaminophen 500 MG Tablet 1000 MG PO ×3 (06:08→22:18)
[2024-11-28] MEDS: Levothyroxine 100 MCG Tablet PO (06:08)
[2024-11-28 06:09] LABS: Hematocrit 31.2 % (37-47); Hemoglobin 10.3 g/dL (12.0-15.0); Mean Platelet Vol. 11.6 fl (6.2-12.0); Platelet Count 225 K/mm3 (150-450); RBC Distribution Width CV 12.7 % (11.6-14.6); RBC Distribution Width SD 42.2 fl (35.1-43.9); Red Blood Count 3.43 M/mm3 (4.2-5.4); White Blood Count 8.2 K/mm3 (4.4-11.0)
[2024-11-28 07:05] LABS: Anion Gap 11 (5-15); BUN 16 mg/dL (4-19); BUN/Creat Ratio 14.1 RATIO (10-20); Calcium,Total 8.8 mg/dL (7.6-11.0); Carbon Dioxide 20.8 mmol/L (21.0-32.0); Chloride 106 mmol/L (98-108); Creatinine, Serum 1.16 mg/dL (0.70-1.20); EST Glomerular Filtration Rate 45 (>60); Estimated Creatinine Clearance 24.08 ml/min (50-250); Glucose 96 mg/dL (70-99); Potassium 4.2 mmol/L (3.3-5.1); Sodium Level 138 mmol/L (133-145)
[2024-11-28] MEDS: Sertraline 50 MG Tablet PO (09:15)
[2024-11-28] MEDS: Metoprolol Tartrate 25 MG Tablet PO ×2 (09:15→22:17)
[2024-11-28] MEDS: amLODIPine 5 MG Tablet PO (09:15)
[2024-11-28] MEDS: Spironolactone 25 MG Tablet PO (09:16)
[2024-11-28] MEDS: Enoxaparin 30 MG/0.3 ML Syringe SC (09:16)
[2024-11-28] MEDS: 0.9% Saline Lock 10 ML Syringe IV (09:16)
[2024-11-28] MEDS: Pantoprazole Sodium 40 MG Tablet PO (09:16)
[2024-11-28] MEDS: Aspirin E.C. 81 MG Tablet PO (09:17)
[2024-11-28] MEDS: Gabapentin 100 MG Capsule PO (09:20)
--- NOTE | 2024-11-28 13:17 | PCM.PROGNOTE ---
Subjective Subjective Patient seen and examined. She complained of left shoulder and clavicular pain due to the clavicle fracture. She said she had been falling at home, and said she moved in with her daughter due to frequent falls. She was recently in a SNF and is looking forward to going back to that SNF if she requires SNF. She has remained hemodynamically stable. Objective Data Objective Data Vital Signs: Vital Signs Temp Pulse Resp BP Pulse Ox O2 Del Method 97.6 F L 63 16 155/80 H 93 Room Air 11/28/24 09:00 11/28/24 09:15 11/28/24 09:00 11/28/24 09:15 11/28/24 09:00 11/28/24 09:31 Oxygen Delivery Method Room Air Weight: 106 lb 11.26 oz Body Mass Index (BMI) 21.5 Intake & Output: Intake and Output for Last 24 Hours 11/26/24 11/27/24 11/28/24 23:59 23:59 23:59 Intake Total 1300 / 1300 Output Total 350 / 350 Balance 950 / 950 Lab / Micro Data 11/28/24 05:25 11/28/24 05:25 Labs: Laboratory Results - last 24 hr 11/27/24 18:08: WBC 5.2, RBC 3.97 L, Hgb 12.0, Hct 36.5 L, MCV 91.9, MCH 30.2, MCHC 32.9, RDW Std Deviation 43.1, RDW Coeff of Gabi 12.8, Plt Count 233, MPV 12.1 H, Immature Gran % (Auto) 1.200 H, Neut % (Auto) 59.3, Lymph % (Auto) 23.8, [place] % (Auto) 12.2 H, Eos % (Auto) 2.5, Baso % (Auto) 1.0, Absolute Neuts (auto) 3.1, Absolute Lymphs (auto) 1.23, Nucleated RBC % 0, Sodium 140, Potassium 4.4, Chloride 104, Carbon Dioxide 24.0, Anion Gap 11, BUN 17, Creatinine 1.19, Estim Creat Clear Calc 23.47 L, Est GFR (MDRD) Non-Af 44 L, BUN/Creatinine Ratio 14.3, Glucose 91, Calcium 9.5 11/28/24 05:25: WBC 8.2, RBC 3.43 L, Hgb 10.3 L, Hct 31.2 L, MCV 91.0, MCH 30.0, MCHC 33.0, RDW Std Deviation 42.2, RDW Coeff of Gabi 12.7, Plt Count 225, MPV 11.6, Sodium 138, Potassium 4.2, Chloride 106, Carbon Dioxide 20.8 L, Anion Gap 11, BUN 16, Creatinine 1.16, Estim Creat Clear Calc 24.08 L, Est GFR (MDRD) Non-Af 45 L, BUN/Creatinine Ratio 14.1, Glucose 96, Calcium 8.8 Radiography Diagnostic Testing: Radiology Impression Shoulder X-Ray 11/27/24 18:54 IMPRESSION: Acute comminuted inferiorly displaced fracture of the distal left clavicle. Reading Location: [facility] Thoracic Spine CT 11/27/24 18:54 IMPRESSION: No acute fracture or subluxation. Extensive compression fracture deformity of the thoracic spine as described above. Large hiatal hernia with circumferential wall thickening of the distal esophagus. Esophagram may be helpful for further characterization. Patchy bibasilar pulmonary infiltrates. Reading Location: [facility] Brain CT 11/27/24 19:16 IMPRESSION: NO ACUTE INTRACRANIAL HEMORRHAGE Reading Location: [facility] Knee X-Ray 11/27/24 19:16 IMPRESSION: No change in healing fracture of the patella. No new fracture. Moderate arthrosis. Reading Location: [facility] Lumbar Spine CT 11/27/24 19:25 IMPRESSION: No acute fracture or subluxation. Multiple chronic compression fractures with vertebroplasty at L1. Degenerative disc disease as described above. Reading Location: [facility] Cervical Spine CT 11/27/24 19:30 IMPRESSION: No acute fracture. Slight anterolisthesis of C4 on C5. Reading Location: [facility] Clavicle X-Ray 11/27/24 20:01 IMPRESSION: Acute comminuted inferiorly displaced fracture of the distal left clavicle. Reading Location: [facility] Physical Exam Const alert and oriented x3 Constitutional Narrative: frail, weak General Appearance: cooperative HEENT normocephalic, head/scalp atraumatic, moist oral mucous membranes and oropharynx normal Eyes PERRL and EOMs intact bilaterally Neck no lymphadenopathy, supple and no JVD Lymph Lymphatic: no lymphadenopathy noted and no lymphedema noted Resp normal respiratory effort, normal air movement and clear to auscultation bilaterally Cardio regular rate, regular rhythm, S1 normal heart sound, S2 normal heart sound and no murmurs GI normal to inspection, nondistended, normoactive bowel sounds, soft to palpation, non-tender and non-distended Extremity Extremity Narrative: LUE in a sling. Skin General Skin Exam: no breakdown Neuro CN's II-XII intact bilaterally, no focal motor deficits and no sensory deficits noted Motor Exam: general weakness Psych thought process normal and cooperative Appearance: appropriate Assessment & Plan Assessment/Plan (1) Closed fracture of left clavicle: (2) Fall: PLAN: Plan #Debility and weakness due to left clavicular fracture and recent left patellar fracture Admitted with a complaint of mechanical fall. Imaging done showed acute comminuted inferiorly displaced fracture of the distal left clavicle. PT/OT on board. On PO tylenol, tramadol and ibuprofen prn as well as IV morphine. fall precautions #Left patellar fracture recently had left patellar fracture left knee brace in place. PT/OT on board fall precautions #Paroxysmal afib: on lopressor. Not anticoagulated due to frequent falls. #History of CAD s/p stents: on aspirin. #Depression; on sertraline #GERD: on PPI #Hypothyroidism: on synthroid DVT prophylaxis: lovenox DIsposition: will benefit from placement. PT/OT On board. Charges/Coding Visit Charges Inpatient E&M: 30164 Subs Hosp L2
--- NOTE | 2024-11-28 14:22 | CASEMGMT ---
Discharge Planning Referral sent to [facility]. Francy Orona DC Planning Asst.
--- NOTE | 2024-11-28 14:28 | CASEMGMT ---
Addendum entered by Gely Barraza 11/28/24 15:07: Pt was accepted to [facility]. [facility] unable to accept pt today, but will be able to accept tomorrow. BRIAN updated pt and pt dtr. Pt dtr requests that pt be transported. Pt dtr to bring clothes in prior to transport. SW updated physician that pt can d/c tomorrow. ORLANDO Shelton Original Note: Social Work- SW met with pt to discuss d/c planning preferences. Pt reports that she would like to d/c to [facility] if SNF needed. SW discussed that pt is here in observation status with medicare coverage, which would dictate that pt private pay any SNF. Pt requested SW follow up with pt dtr. BRIAN called pt dtr, Kristin, to discuss discharge planning. Kristin reports that pt has been doing well at home prior to blacking out and fall. Kristin reports that pt has been home 3 weeks with PT once per week and OT twice per week through [facility]. Kristin inquired into IRU at [facility]. BRIAN discussed criteria and need for three hours of therapy. Kristin believes if therapy is completed in one hour blocks with rest between sessions, that pt would have no issues completing therapy requirements. If IRU is unable to accept, Kristin would be interested in [facility] private pay. Pt dtr is concerned about finances as previous private pay stay consumed $7000 of pt savings, which is minimal at this time. Pt dtr reports that if she would need SNF, she would like to limit stay to 1-2 week. BRIAN completed referral to [facility] IRU. Pt was declined. VICTOR M notified of IRU denial and requested to complete referral to [facility]. Kristin arrived to visit pt. BRIAN met with pt and dtr. BRIAN updated that IRU declined and referral completed to [facility]. Pt dtr reports that if [facility] declines, pt will return home and dtr would be interested in private duty information. SW to follow. ORLANDO Shelton
--- NOTE | 2024-11-28 15:06 | CASEMGMT ---
Met with patient to complete BAI form. BAI form explained to patient who voiced understanding and signed form. Original form placed in pt?s chart and copy provided to patient. Francy Orona, Discharge Planning Asst
--- NOTE | 2024-11-28 15:10 | CASEMGMT ---
[facility] has accepted and will have bed ready tomorrow. Preferred time is between 9-10. SW updated. Francy Orona DC Planning Asst.
--- NOTE | 2024-11-28 15:33 | CASEMGMT ---
SW received request that [facility] would like pt 9-10. BRIAN updated physician. Physician reports agreement with d/c prior and shared that she will plan for 8:30 discharge. DCA set transport for 9:00AM. SW updated pt and daughter. BRIAN updated transport time on green sheet. ORLANDO Shelton
--- NOTE | 2024-11-28 15:56 | CASEMGMT ---
Social Work- Discharge to [facility] SNF; private pay for skilled level of care. ?Facility requests admit 11/29 between 9-10. Physician agreeable. [facility] transport has been set for 9am. Physician, pt, and pt dtr updated on transport time. Green sheet on chart for nursing to follow for final discharge arrangements/notifications to SNF, patient/family.? Plan: [facility]; private pay ORLANDO Shelton?
[2024-11-28] MEDS: Ibuprofen 400 MG Tablet PO (20:40)
[2024-11-29] MEDS: Morphine 2 MG/ML Syringe IV (00:20)
[2024-11-29 05:00] VITALS: BP 126/74; PULSE 70; RESP 15; TEMP 37; O2SAT 96
[2024-11-29 06:33] LABS: Absolute Lymphocyte Count 1.35 X10^3/uL (0.83-4.51); Absolute Neutrophil Count 3.7 X10^3/uL (2.0-7.7); Basophil# 0.03 X10^3/uL; Basophil% 0.5 % (0-1); Eosinophil# 0.23 X10^3/uL; Eosinophils% 3.8 % (0-5); Hematocrit 30.1 % (37-47); Hemoglobin 9.9 g/dL (12.0-15.0); Lymphocyte # 1.35 X10^3/ul (0.83-4.51); Lymphocyte % 22.2 % (19-41); Mean Corp Hgb Conc 32.9 g/dL (32-36); Mean Corpuscular Hgb 30.3 pg (27.0-32.0); Mean Platelet Vol. 11.5 fl (6.2-12.0); Monocyte# 0.74 X10^3/uL; Monocyte% 12.2 % (0-10); NRBC Flagged by Analyzer 0 % (0-5); Neutrophil # 3.68 X10^3/uL (2.7-7.7); Neutrophil % 60.5 % (47-70); Platelet Count 200 K/mm3 (150-450); RBC Distribution Width CV 12.8 % (11.6-14.6); RBC Distribution Width SD 43.4 fl (35.1-43.9); Red Blood Count 3.27 M/mm3 (4.2-5.4); White Blood Count 6.1 K/mm3 (4.4-11.0)
[2024-11-29] MEDS: Levothyroxine 100 MCG Tablet PO (06:45)
[2024-11-29 07:11] LABS: Anion Gap 9 (5-15); BUN 23 mg/dL (4-19); BUN/Creat Ratio 18.4 RATIO (10-20); Calcium,Total 8.8 mg/dL (7.6-11.0); Carbon Dioxide 23.3 mmol/L (21.0-32.0); Chloride 106 mmol/L (98-108); Creatinine, Serum 1.25 mg/dL (0.70-1.20); EST Glomerular Filtration Rate 41 (>60); Estimated Creatinine Clearance 22.35 ml/min (50-250); Glucose 89 mg/dL (70-99); Potassium 4.1 mmol/L (3.3-5.1); Sodium Level 138 mmol/L (133-145)
[2024-11-29 07:46] VITALS: BP 136/75; PULSE 63; RESP 18; TEMP 36.7; O2SAT 96
--- NOTE | 2024-11-29 07:46 | TREXTCAR_ITS ---
Diet Diet Order/Speech Therapy: 11/27/24 22:31 Diet: Regular - General Food consistency:: Regular Liquid Consistency:: Regular/Thin Routine Orders/Code Status Enema Type: Fleetz Enema Frequency: Daily PRN Suppository Type: Dulcolax 10mg Suppository Frequency: Daily PRN DC O2, CPAP, BIPAP needs Home O2 Discharge instructions: No Wound(s) left lat wrist: Wound Type: Laceration Therapies Weight Bearing: Weight bearing as tolerated Physical Therapy: Eval and Treat Occupational Therapy: Eval and Treat Problem/Diagnosis (1) Closed fracture of left clavicle: Status: Acute Code(s): S42.002A - Fracture of unspecified part of left clavicle, initial encounter for closed fracture (2) Fall: Status: Acute Code(s): W19.XXXA - Unspecified fall, initial encounter Plan #Debility and weakness due to left clavicular fracture and recent left patellar fracture * Admitted with a complaint of mechanical fall. Imaging done showed acute comminuted inferiorly displaced fracture of the distal left clavicle. * PT/OT on board. * On PO tylenol, tramadol and ibuprofen prn as well as IV morphine. * fall precautions * #Left patellar fracture * recently had left patellar fracture * left knee brace in place. * PT/OT on board * fall precautions * #Paroxysmal afib: on lopressor. Not anticoagulated due to frequent falls. #History of CAD s/p stents: on aspirin. #Depression; on sertraline #GERD: on PPI #Hypothyroidism: on synthroid DVT prophylaxis: lovenox DIsposition: will benefit from placement. PT/OT On board. Allergies/Procedures Done in Hospital Allergies atorvastatin (From Lipitor) Adverse Reaction (Verified 11/27/24 17:55) myalgia oxycodone (From Percocet) Adverse Reaction (Verified 11/27/24 17:55) Unknown propoxyphene (From Darvocet-N 100) Adverse Reaction (Verified 11/27/24 17:55) Unknown Procedures: None Type of Care/Length of Stay Estimated LOS: Convalescent Care Less Than 30 days Type of Care Needed: Skilled Rehab Potential: Fair Prognosis: Fair Additional Orders/Day of Discharge Day of Discharge: 11/29/24 Discharge Plan Admission Admit Date/Time: 11/27/24 21:37 Primary Reason for Your Visit: mechanical fall with fractured clavicle Attending Provider: Britt Guthrie Primary Care Provider: Charles Haddad Consulting Providers: Aguilar Gale Instructions Patient Instructions: ED Fracture, Clavicle Discharge Orders/Prescriptions Prescriptions: New tramadol 50 mg tablet 50 mg PO Q8H PRN (Reason: pain) 5 Days Qty: 15 0RF Continued aspirin [Adult Aspirin Regimen] 81 mg tablet,delayed release (DR/EC) 81 mg PO DAILY sertraline 50 mg tablet 50 mg PO DAILY loperamide [Imodium A-D] 2 mg capsule 2 mg PO Q6H PRN (Reason: Diarrhea) gabapentin 100 mg capsule 100 mg PO DAILY Rx Instructions: qod nitroglycerin 0.4 mg tablet, sublingual 0.4 mg SUBLINGUAL Q5-15M Qty: 30 0RF ibuprofen 400 mg tablet 400 mg PO TID PRN (Reason: pain) Prolia 60 mg/mL syringe 60 mg subcut [id number] pantoprazole 40 mg tablet,delayed release (DR/EC) 40 mg PO DAILY Patient Comments: TAKE 1 TABLET BY MOUTH EVERY MORNING BEFORE MEALS levothyroxine 100 mcg tablet 100 mcg PO DAILY metoprolol tartrate 25 mg tablet 25 mg PO BID Qty: 180 3RF amlodipine 5 mg tablet 5 mg PO DAILY Qty: 90 3RF spironolactone 25 mg tablet 25 mg PO DAILY Qty: 90 3RF Discontinued tramadol 50 mg tablet 25 - 50 mg PO TID PRN PRN (Reason: pain) Referrals / Follow Up: Charles Haddad DO [Primary Care Provider] - Within 1 Week Disposition Disposition (needs filled in before D/C Order can be placed): Long-Term Facility
[2024-11-29 07:47] VITALS: O2SAT 95
[2024-11-29 08:35] VITALS: PULSE 75
[2024-11-29] MEDS: Metoprolol Tartrate 25 MG Tablet PO (08:35)
[2024-11-29] MEDS: Pantoprazole Sodium 40 MG Tablet PO (08:35)
[2024-11-29] MEDS: Aspirin E.C. 81 MG Tablet PO (08:35)
[2024-11-29] MEDS: Sertraline 50 MG Tablet PO (08:36)
[2024-11-29] MEDS: traMADol 50 MG Tablet PO (08:38)
[2024-11-29] MEDS: Gabapentin 100 MG Capsule PO (08:39)
[2024-11-29] MEDS: Ibuprofen 400 MG Tablet PO (08:39)
[2024-11-29] MEDS: amLODIPine 5 MG Tablet PO (08:45)
--- NOTE | 2024-11-29 09:25 | NURSING ---
report called to Kiki at [facility]
--- NOTE | 2024-11-29 11:01 | DS.PCM_ITS ---
Providers Date of Admission: 11/27/24 Date of Discharge: 11/29/24 Primary Care Physician: Dr. Charles Haddad DO Reason For Visit: FALL W. CLAVICLE FRACTURE & DEBILITY Diagnosis Discharge Diagnosis (1) Closed fracture of left clavicle: Status: Acute Code(s): S42.002A - Fracture of unspecified part of left clavicle, initial encounter for closed fracture (2) Fall: Status: Acute Code(s): W19.XXXA - Unspecified fall, initial encounter Plan #Debility and weakness due to left clavicular fracture and recent left patellar fracture * Admitted with a complaint of mechanical fall. Imaging done showed acute comminuted inferiorly displaced fracture of the distal left clavicle. * PT/OT on board. * On PO tylenol, tramadol and ibuprofen prn as well as IV morphine. * fall precautions * #Left patellar fracture * recently had left patellar fracture * left knee brace in place. * PT/OT on board * fall precautions * #Paroxysmal afib: on lopressor. Not anticoagulated due to frequent falls. #History of CAD s/p stents: on aspirin. #Depression; on sertraline #GERD: on PPI #Hypothyroidism: on synthroid DVT prophylaxis: lovenox DIsposition: will benefit from placement. PT/OT On board. Medications at Discharge Home Medications aspirin 81 mg tablet,delayed release (Adult Aspirin Regimen) 81 mg PO DAILY blood thinner 04/24/19 pantoprazole 40 mg tablet,delayed release 40 mg PO DAILY gerd 01/10/21 loperamide 2 mg capsule (Imodium A-D) 2 mg PO Q6H PRN Diarrhea 04/18/22 sertraline 50 mg tablet 50 mg PO DAILY mood 04/18/22 gabapentin 100 mg capsule 100 mg PO DAILY pain 12/07/23 metoprolol tartrate 25 mg tablet 25 mg PO BID heart #180 tabs 01/28/24 levothyroxine 100 mcg tablet 100 mcg PO DAILY thyroid 02/17/24 amlodipine 5 mg tablet 5 mg PO DAILY bp #90 TABLETS 04/04/24 nitroglycerin 0.4 mg sublingual tablet 0.4 mg sublingual Q5-15M #30 tabs 04/10/24 spironolactone 25 mg tablet 25 mg PO DAILY water pill #90 tabs 07/14/24 denosumab 60 mg/mL subcutaneous syringe (Prolia) 60 mg subcut [id number] oa 11/26/24 ibuprofen 400 mg tablet 400 mg PO TID PRN pain 11/26/24 tramadol 50 mg tablet 50 mg PO Q8H PRN pain 5 days #15 tabs 11/29/24 Hospital Course Operations None Procedures None Summary of Care Provided Minutes Spent on Discharge: 45 Hospital Course: Patient is an 89-year-old female with past medical history as outlined was admitted through the ED on 11/27/2024 with complaint of left shoulder pain after mechanical fall. Patient lived at home with her daughter and had been having recurrent falls. She was following with Dr. Ziegler of orthopedic surgery for recent left patella fracture due to mechanical fall. This had happened in late September and she was discharged home but subsequently required SNF placement due to debility and weakness and failure to thrive. She had been sent back home from the SNF a few days prior to this admission. Patient's daughter was gone for about 10 to 15 minutes but came back to find patient on the floor. She was unable to get up and had significant left shoulder pain so EMS was called. In the ED imaging showed an acute comminuted inferior displaced fracture of the distal left clavicle. She was therefore admitted to be managed for debility and weakness due to mechanical falls with resultant left clavicular fracture. The left upper extremity was put in a sling and patient and family were counseled that management for this will be nonoperative. She was skilled as needing further therapy. She was placed on tramadol as needed as well as Tylenol for pain. Patient was discharged to [facility] on 11/29/2024. She is follow-up with her primary care doctor within 1 to 2 weeks. Patient was counseled again that the surgery would be nonoperative and she needed to keep the arm in the sling until followed up with the PCP and orthopedic surgery. She was given p.o. tramadol 50 mg 3 times daily as needed for total of 15 tablets for 5 days. OARRS score was checked and no red flags were seen. Patient seen and examined prior to discharge. Her daughter was by her bedside. She had no active complaints. Pain was fairly well-controlled. Review of systems otherwise negative. Labs and vitals reviewed. Medication reviewed and reconciled. Physical Exam Const alert, oriented x3 and no apparent distress Constitutional Narrative: frail, weak General Appearance: cooperative and comfortable Orientation / Consciousness: awake Exam Limitations: no limitations HEENT normocephalic, head/scalp atraumatic, nasal mucous membranes and turbinates normal, moist oral mucous membranes and oropharynx normal Eyes PERRL, EOMs intact bilaterally and conjunctivae normal Neck no lymphadenopathy, supple and no JVD Lymph Lymphatic: no lymphadenopathy noted and no lymphedema noted Chest inspection of chest normal Resp normal respiratory effort, normal air movement, no use of accessory muscles and clear to auscultation bilaterally Cardio regular rate, regular rhythm, S1 normal heart sound, S2 normal heart sound, no murmurs and peripheral pulses 2+ throughout GI normal to inspection, nondistended, normoactive bowel sounds, soft to palpation, non-tender and non-distended Back/Spine normal ROM Extremity no pedal edema Extremity Narrative: LUE in a sling due to left clavicular fracture Skin no rashes or lesions noted General Skin Exam: no breakdown Neuro CN's II-XII intact bilaterally, no focal motor deficits and no sensory deficits noted Motor Exam: general weakness Psych mental status grossly normal, thought process normal and cooperative Appearance: appropriate Weight / BMI Weight Weight: 106 lb 11.26 oz Body Mass Index (BMI) 21.5 ABG / Lab / Microbiology Data 11/29/24 05:53 11/29/24 05:53 Laboratory: Laboratory Results - last 24 hr 11/29/24 05:53: WBC 6.1, RBC 3.27 L, Hgb 9.9 L, Hct 30.1 L, MCV 92.0, MCH 30.3, MCHC 32.9, RDW Std Deviation 43.4, RDW Coeff of Gabi 12.8, Plt Count 200, MPV 11.5, Immature Gran % (Auto) 0.800, Neut % (Auto) 60.5, Lymph % (Auto) 22.2, M ck % (Auto) 12.2 H, Eos % (Auto) 3.8, Baso % (Auto) 0.5, Absolute Neuts (auto) 3.7, Absolute Lymphs (auto) 1.35, Nucleated RBC % 0, Sodium 138, Potassium 4.1, Chloride 106, Carbon Dioxide 23.3, Anion Gap 9, BUN 23 H, Creatinine 1.25 H, E stim Creat Clear Calc 22.35 L, Est GFR (MDRD) Non-Af 41 L, BUN/Creatinine Ratio 18.4, Glucose 89, Calcium 8.8 D/C Instructions Discharge Diet: Low fat / Low cholesterol Discharge Activity: Return to Normal Activity Weight Bearing Status: Weight bearing as tolerated Call your doctor if you observe: Fever of 101 or Higher, Shortness of breath, Dizziness, Swelling in the ankles, Chest pain and Uncontrolled pain DC O2, CPAP, BIPAP Needs Home O2 Discharge instructions: No Meaningful Use Info Meaningful Use Meaningful Use Diagnoses (Choose all that apply): None applicable Ischemic Stroke Statin Dosing Therapy Reference: STATIN DOSE THERAPY REFERENCE: * Patients > 75 years receive moderate or high dose statin therapy. * Patients 75 years or YOUNGER should receive HIGH intensity statin dose unless contraindicated. You will be required to document reason for non-treatment if statin daily dose does not meet guidelines. HIGH DOSE STATIN THERAPY DAILY Atorvastatin > than or = to 40 mg Rosuvastatin > than or = to 20 mg Amlodipine + Atorvastatin > than or = to 2.5/40 mg Ezetimibe + Simvastatin 10/80 mg Simvastatin 80mg Discharge Plan Admission Admit Date/Time: 11/27/24 21:37 Primary Reason for Your Visit: mechanical fall with fractured clavicle Attending Provider: Britt Guthrie Primary Care Provider: Charles Haddad Consulting Providers: Aguilar Gale Instructions Patient Instructions: ED Fracture, Clavicle Discharge Orders/Prescriptions Prescriptions: New tramadol 50 mg tablet 50 mg PO Q8H PRN (Reason: pain) 5 Days Qty: 15 0RF Continued aspirin [Adult Aspirin Regimen] 81 mg tablet,delayed release (DR/EC) 81 mg PO DAILY sertraline 50 mg tablet 50 mg PO DAILY loperamide [Imodium A-D] 2 mg capsule 2 mg PO Q6H PRN (Reason: Diarrhea) gabapentin 100 mg capsule 100 mg PO DAILY Rx Instructions: qod nitroglycerin 0.4 mg tablet, sublingual 0.4 mg SUBLINGUAL Q5-15M Qty: 30 0RF ibuprofen 400 mg tablet 400 mg PO TID PRN (Reason: pain) Prolia 60 mg/mL syringe 60 mg subcut [id number] pantoprazole 40 mg tablet,delayed release (DR/EC) 40 mg PO DAILY Patient Comments: TAKE 1 TABLET BY MOUTH EVERY MORNING BEFORE MEALS levothyroxine 100 mcg tablet 100 mcg PO DAILY metoprolol tartrate 25 mg tablet 25 mg PO BID Qty: 180 3RF amlodipine 5 mg tablet 5 mg PO DAILY Qty: 90 3RF spironolactone 25 mg tablet 25 mg PO DAILY Qty: 90 3RF Discontinued tramadol 50 mg tablet 25 - 50 mg PO TID PRN PRN (Reason: pain) Referrals / Follow Up: Charles Haddad DO [Primary Care Provider] - Within 1 Week Disposition Disposition (needs filled in before D/C Order can be placed): Residential Facility Charges/Coding Visit Charges Inpatient E&M: 90781 Disch Hosp >30min
== END 2024-11-29 09:30 | disposition skilled nursing facility (03) ==
LOC: ED 21:41 → MS3 21:49
PROVIDERS: Admitting Provider Hospitalist; Emergency Provider Emergency Medicine; PCP Preventive Medicine Occupational Medicine; Visit Provider Student in an Organized Health Care Education/Training Program
DX: S42.032A Displaced fracture of lateral end of left clavicle, initial encounter for closed fracture (principal); I50.32 Chronic diastolic (congestive) heart failure; I13.0 Hypertensive heart and chronic kidney disease with heart failure and stage 1 through stage 4 chronic kidney disease, or unspecified chronic kidney disease; I27.21 Secondary pulmonary arterial hypertension; I48.0 Paroxysmal atrial fibrillation; R53.81 Other malaise; H91.90 Unspecified hearing loss, unspecified ear; N18.9 Chronic kidney disease, unspecified; W19.XXXA Unspecified fall, initial encounter; R62.7 Adult failure to thrive; E78.5 Hyperlipidemia, unspecified; E03.9 Hypothyroidism, unspecified; R53.1 Weakness; I25.10 Atherosclerotic heart disease of native coronary artery without angina pectoris; R55 Syncope and collapse; S82.002D Unspecified fracture of left patella, subsequent encounter for closed fracture with routine healing; R79.89 Other specified abnormal findings of blood chemistry; M79.7 Fibromyalgia; K21.9 Gastro-esophageal reflux disease without esophagitis; F32.A Depression, unspecified; M81.0 Age-related osteoporosis without current pathological fracture; R29.6 Repeated falls; Z79.1 Long term (current) use of non-steroidal anti-inflammatories (NSAID); Z79.891 Long term (current) use of opiate analgesic; Z79.890 Hormone replacement therapy; Z79.899 Other long term (current) drug therapy; Z86.16 Personal history of COVID-19; Z68.22 Body mass index [BMI] 22.0-22.9, adult; Z95.5 Presence of coronary angioplasty implant and graft
CPT/HCPCS: 36415; 70450; 72125; 72128; 72131; 73000; 73030; 73560; 80048; 85025; 85027; 93005; 94668; 96361; 96372; 96374; 96376; 97162; 97166; 99221; 99285; A4216; G0378

== ENCOUNTER → 2024-12-01 | Outpatient (REF) | payer MEDICARE, OTHER, SELFPAY ==
[2024-12-01 09:27] LABS: Hematocrit 31.7 % (37-47); Hemoglobin 10.4 g/dL (12.0-15.0); Mean Corp Hgb Conc 32.8 g/dL (32-36); Mean Corpuscular Hgb 30.1 pg (27.0-32.0); Mean Corpuscular Volume 91.6 fL (81-99); Mean Platelet Vol. 11.5 fl (6.2-12.0); Platelet Count 246 K/mm3 (150-450); RBC Distribution Width CV 12.8 % (11.6-14.6); RBC Distribution Width SD 42.7 fl (35.1-43.9); Red Blood Count 3.46 M/mm3 (4.2-5.4); White Blood Count 6.7 K/mm3 (4.4-11.0)
[2024-12-01 10:03] LABS: Anion Gap 9 (5-15); BUN 16 mg/dL (4-19); BUN/Creat Ratio 13.8 RATIO (10-20); Carbon Dioxide 25.9 mmol/L (21.0-32.0); Chloride 106 mmol/L (98-108); Creatinine, Serum 1.15 mg/dL (0.70-1.20); EST Glomerular Filtration Rate 46 (>60); Glucose 91 mg/dL (70-99); Sodium Level 141 mmol/L (133-145)
== END ==
LOC: OLS.ACH 05:00
PROVIDERS: PCP Preventive Medicine Occupational Medicine; Visit Provider Internal Medicine
DX: I13.0 Hypertensive heart and chronic kidney disease with heart failure and stage 1 through stage 4 chronic kidney disease, or unspecified chronic kidney disease (principal); I50.9 Heart failure, unspecified; N18.9 Chronic kidney disease, unspecified; S42.032D Displaced fracture of lateral end of left clavicle, subsequent encounter for fracture with routine healing
CPT/HCPCS: 36415; 80048; 85027

== ENCOUNTER 2025-08-02 17:36 | Inpatient (IN) | payer MEDICARE, OTHER, SELFPAY ==
[2025-08-02 17:37] VITALS: BP 173/109; PULSE 61; RESP 15; TEMP 36.2; O2SAT 95
[2025-08-02 18:04] VITALS: BMI 22.1
--- NOTE | 2025-08-02 18:13 | EKG12_ITS ---
Test Reason : SYNCOPE Blood Pressure : */* mmHG Vent. Rate : 71 BPM Atrial Rate : 71 BPM P-R Int : 168 ms QRS Dur : 90 ms QT Int : 392 ms P-R-T Axes : * -30 57 degrees QTcB Int : 425 ms Sinus rhythm with Premature atrial complexes Left axis deviation Minimal voltage criteria for LVH, may be normal variant ( [place] product ) Abnormal ECG Confirmed by Gurvinder Grove ([id number]), rewrite editor SHIRA RUELAS ([id number]) on 08/04/2025 11:29:06 AM Also confirmed by Gurvinder Grove ([id number]), rewrite editor SHIRA RUELAS ([id number]) on 08/05/2025 10:54:03 AM Referred By: KALEN Confirmed By: Gurvinder Grove
--- NOTE | 2025-08-02 18:14 | EX.ED.DYSGE1 ---
HPI History of Present Illness Chief Complaint: Syncope Detail of Chief Complaint: Syncope Informant: patient Narrative Narrative: Patient presents with syncopal episode that occurred prior to arrival in the emergency department. She was in the kitchen getting ready to feed the dog. She remembers feeling lightheaded and dizzy and felt shaky. Daughter heard patient fall and went down to investigate and found patient on the floor. Patient was responsive and asked if she had been found on the floor. Patient does have history of syncope. Recent decrease in her amlodipine because it was thought it may be contributing to her symptoms. Patient has history of chronic back pain. Currently complaining of headache. Complaining of neck pain which is chronic. Complaining of left elbow pain. Patient not anticoagulated [facility] Medical History Immobility Closed fracture of left clavicle Fall (HFpEF) heart failure with preserved ejection fraction Osteoarthritis of hip (12/25/16) Chronic kidney disease (CKD) Weakness generalized COVID-19 (12/2020) EE (eosinophilic esophagitis) Paroxysmal atrial fibrillation Syncope (03/2019) Bilateral pleural effusion Chronic renal insufficiency Hiatal hernia Secondary pulmonary arterial hypertension Osteoarthritis Depression GERD (gastroesophageal reflux disease) Hypothyroidism Fibromyalgia Deep vein thrombosis (DVT) (04/2012) Atherosclerosis of coronary artery of [place] heart without angina pectoris Essential (primary) hypertension Hyperlipidemia Home Medications ?Medication ?Instructions ?Recorded ?Last Taken ?Type aspirin 81 mg tablet,delayed 81 mg PO DAILY blood thinner 04/24/19 01/10/21 09:30 History release (Adult Aspirin Regimen) pantoprazole 40 mg tablet,delayed 40 mg PO DAILY gerd 01/10/21 10/30/22 History release loperamide 2 mg capsule (Imodium 2 mg PO Q6H PRN Diarrhea 04/18/22 Unknown History A-D) sertraline 50 mg tablet 50 mg PO DAILY mood 04/18/22 Unknown History gabapentin 100 mg capsule 100 mg PO DAILY pain 12/07/23 Unknown History levothyroxine 100 mcg tablet 100 mcg PO DAILY thyroid 02/17/24 Unknown History nitroglycerin 0.4 mg sublingual 0.4 mg sublingual Q5-15M #30 tabs 04/10/24 Unknown Rx tablet spironolactone 25 mg tablet 25 mg PO DAILY water pill #90 tabs 07/14/24 Unknown Rx denosumab 60 mg/mL subcutaneous 60 mg subcut [id number] 11/26/24 Unknown History syringe (Prolia) ibuprofen 400 mg tablet 400 mg PO TID PRN pain 11/26/24 Unknown History tramadol 50 mg tablet 50 mg PO Q8H PRN pain 5 days #15 11/29/24 Unknown Rx tabs metoprolol tartrate 25 mg tablet 25 mg PO BID heart #180 tabs 04/20/25 Unknown Rx amlodipine 5 mg tablet 2.5 mg PO BID bp 05/25/25 Unknown History Allergy/AdvReac Type Severity Reaction Status Date / Time tramadol (From Ultram) AdvReac Mild Nausea Verified 08/02/25 17:40 atorvastatin (From Lipitor) AdvReac myalgia Verified 08/02/25 17:40 oxycodone (From Percocet) AdvReac Unknown Verified 08/02/25 17:40 propoxyphene (From AdvReac Unknown Verified 08/02/25 17:40 Darvocet-N 100) Family History Father Heart disease CAD (coronary artery disease) Mother Heart disease Diabetes CVA (cerebral vascular accident) CAD (coronary artery disease) Surgical History History of loop recorder (05/05/19) History of thoracentesis History of appendectomy History of cataract surgery History of total knee arthroplasty History of bowel resection Hx of cholecystectomy History of left heart catheterization (03/23/17) History of hysterectomy History of spinal surgery History of hemiarthroplasty of left hip History of coronary artery stent placement (05/31/12) Social History household members: spouse housing: house Smoking Status: Never smoker alcohol intake: never substance use type: does not use ROS ROS ED ROS Narrative Syncope Constitutional Constitutional ED: Reports systems reviewed and no addt'l complaints, except as documented; Denies body ache(s), change in weight or chills Eyes Eyes: Denies acute decrease in peripheral vision, change in vision, double vision or loss of vision ENT ENT ED: Reports none; Denies ear pain, lip swelling, loss taste/smell, neck pain, otalgia or sore throat Cardiovascular Cardiovascular: Reports none; Denies abdominal pain, chest pain with activity, leg edema, lightheadedness, palpitations, rapid heart rate or syncope Respiratory/Chest Respiratory/Chest: Reports none; Denies change in mental status, dry cough, dyspnea, hemoptysis, shortness of breath at rest or shortness of breath with exertion Gastrointestinal Gastrointestinal: Reports none; Denies abdominal pain, change in stool character, diarrhea, hematemesis, hematochezia, melena, rectal bleeding or vomiting Genitourinary Genitourinary ED: Reports none; Denies abdominal discomfort, anuria, dysuria, genital pain or polyuria Musculoskeletal Musculoskeletal: Reports none, extremity pain, neck pain and other; Denies arthralgias, back pain, difficulty walking, muscle weakness or myalgias Integumentary Reports none; Denies abscess or rash Neurologic Neurologic: Reports none and other Details: Dizziness ; Denies abnormal gait, confusion, focal weakness, frequent falls, headache(s), loss of vision, numbness, paresthesias, radicular pain, vertigo or weakness Psychiatric Psychiatric: Reports systems reviewed and no addt'l complaints, except as documented and none; Denies behavioral changes, confusion, difficulty concentrating, hallucinations, suicidal ideation, tactile hallucinations or visual hallucinations Endocrine Endocrinology: Denies none, cold intolerance, excessive sweating, fatigue or heat intolerance Hematologic/Lymphatic Hematologic/Lymphatic: Reports none; Denies anemia, easy bleeding or easy bruising Allergic/Immunologic Allergic/Immunologic ED: Denies as per HPI, none, lip swelling, mouth swelling, throat swelling, tongue swelling or hives EXAM Physical Exam Const Vital Signs: 08/02/25 17:37 08/02/25 18:02 08/02/25 18:05 Temperature 97.2 F L Temperature Source Temporal Pulse Rate 61 Respiratory Rate 15 Respiratory Effort Normal Non-Labored Normal Non-Labored Respiratory Depth Normal Respiratory Pattern Normal Normal Blood Pressure 173/109 H Blood Pressure Mean 130 Pulse Ox 95 Oxygen Delivery Method Room Air Room Air 08/02/25 19:37 Temperature Temperature Source Pulse Rate 84 Respiratory Rate 23 H Respiratory Effort Respiratory Depth Respiratory Pattern Blood Pressure 154/82 H Blood Pressure Mean 106 Pulse Ox 100 Oxygen Delivery Method Room Air Positive well nourished and well developed General Appearance ED: well developed and NAD HEENT Reports TM's clear and moist mucous membranes HEENT Narrative: Ecchymosis and bruising noted to the left frontal scalp. normocephalic and atraumatic; Negative for trauma or tenderness Tympanic Membrane ED: Yes TM's clear Eyes PERRL and EOMs intact bilaterally General Eye ED: Negative for pale conjunctiva or scleral icterus Neck no lymphadenopathy, supple and no JVD Neck Narrative: Mild diffuse tenderness. No bony step-offs or depressions. General: Negative for tenderness Chest Wall inspection of chest normal and palpation of chest normal Chest: Negative for tenderness Resp normal respiratory effort and clear to auscultation bilaterally Effort and Inspection: Negative for respiratory distress or pain with movement Auscultation: Negative for rhonchi, wheezes or diminished lung sounds Cardio regular rate, regular rhythm, S1 normal heart sound, S2 normal heart sound and no murmurs Peripheral Pulses: pulses 2+ throughout GI normal to inspection, nondistended, normoactive bowel sounds, soft to palpation, non-tender, non-distended and no masses Back/Spine no CVA tenderness and no thoracic nor lumbar tenderness Back/Spine Narrative: Superficial abrasion to the left mid posterior ribs. No crepitus or subcu of edema noted. Extremity Extremity Narrative: Left elbow-some mild diffuse tenderness. There is a superficial skin tear to the lateral aspect of the elbow. Neurovascular intact distally. No obvious deformity. General Extremety ED: Negative for edema General Extremity: Negative for edema Neuro oriented x3, CN's II-XII intact bilaterally, no sensory deficits noted and gait normal Sensorium / Orientation: awake, alert, oriented to person, oriented to place and oriented to time Motor Exam: strength 5/5 throughout and strength abnormal Psych mental status grossly normal Skin no rashes or lesions noted and no wounds MDM MDM MDM Narrative Medical decision making narrative: Patient presents to the emergency department with a syncopal episode. History of syncope in the past. Denies recent illness. Denies chest pain or shortness of breath. EKG obtained arrival shows sinus rhythm with ventricular rate of 71 bpm with occasional PACs. CBC with differential showed white count 6.0 with hemoglobin 12.8 and platelet count of 187. Chemistries unremarkable. Troponin normal at 11. Urinalysis positive for nitrites with 100 leukocyte esterase and +1 bacteria but only 0-5 WBCs. Patient is asymptomatic and I did send off a urine culture. CT scan of the brain without contrast showed no intracranial hemorrhage or skull fracture. CT of the C-spine showed no fractures. Chest x-ray was unremarkable and x-rays of the left elbow did not show any fractures. Case discussed with hospitalist to evaluate patient for admission. Her orthostatic vital signs here were negative. Etiology of her syncope unclear. Suspect possibly vasovagal versus orthostatic syncope. Lab Data Attestation: I reviewed the patient's lab results. Labs: Laboratory Results - last 24 hr 08/02/25 08/02/25 08/02/25 18:23 19:20 19:22 WBC 6.0 RBC 4.35 Hgb 12.8 Hct 39.4 MCV 90.6 MCH 29.4 MCHC 32.5 RDW Std Deviation 44.1 H RDW Coeff of Gabi 13.3 Plt Count 187 MPV 11.5 Immature Gran % (Auto) 0.200 Neut % (Auto) 67.2 Lymph % (Auto) 19.2 [place] % (Auto) 11.9 H Eos % (Auto) 1.3 Baso % (Auto) 0.2 Absolute Neuts (auto) 4.0 Absolute Lymphs (auto) 1.14 Nucleated RBC % 0 Sodium Cancelled 139 Potassium Cancelled 4.8 Chloride Cancelled 108 Carbon Dioxide Cancelled 18.7 L Anion Gap Cancelled 13 BUN Cancelled 19 Creatinine Cancelled 1.13 Estim Creat Clear Calc 24.72 L Est GFR (MDRD) Non-Af Cancelled 47 L BUN/Creatinine Ratio Cancelled 16.7 Glucose Cancelled 86 Calcium Cancelled 7.7 Troponin T High Sens 11 Urine Color Yellow Urine Clarity Clear Urine pH 6.0 Ur Specific [place] 1.015 Urine Protein 30 H Urine Glucose (UA) Normal Urine Ketones Negative Urine Occult Blood 25 H Urine Nitrite Positive H Urine Bilirubin Negative Urine Urobilinogen Normal Ur Leukocyte Esterase 100 H Urine RBC 0 SEEN Urine WBC 0-5 SEEN Ur Squamous Epith Cells 0-5 SEEN Ur Transition Epith Cell 0-5 SEEN Amorphous Sediment 1+ Urine Bacteria 1+ Urine Mucus 0 SEEN Radiography Diagnostic Testing: Clinical Impression(s) from Imaging Studies Brain CT 08/02/25 18:40 IMPRESSION: No acute intracranial process. Reading Location: [facility] Cervical Spine CT 08/02/25 18:40 IMPRESSION: No acute cervical fracture or subluxations. Extensive multilevel degenerative changes of the cervical spine as above. Reading Location: [facility] Chest X-Ray 08/02/25 18:40 IMPRESSION: Pulmonary findings as above. Reading Location: [facility] Elbow X-Ray 08/02/25 18:40 IMPRESSION: No acute osseous abnormalities. Osteoarthrosis. Reading Location: [facility] 1 view chest x-ray obtained interpreted by myself as no evidence of infiltrate or pneumothorax or acute disease process. Radiology in agreement. Three-view x-rays of the left elbow obtained interpreted by myself as no evidence of fracture or dislocation. Radiology in agreement. EKG Initial EKG: Attestation: I personally reviewed and interpreted this EKG as follows: Comments: Sinus rhythm with rate of 71 bpm with occasional PACs. Discharge Plan Dx/Rx/DC Orders Clinical Impression: Syncope, Closed head injury, Contusion of left elbow, Skin tear of left elbow without complication Disposition Disposition: Acute Care [facility]
[2025-08-02 18:30] LABS: Hematocrit 39.4 % (37-47); Hemoglobin 12.8 g/dL (12.0-15.0); Immature Granulocytes Count 0.010 X10^3/uL (0.0-0.0); Mean Corp Hgb Conc 32.5 g/dL (32-36); Mean Corpuscular Volume 90.6 fL (81-99); Mean Platelet Vol. 11.5 fl (6.2-12.0); NRBC Flagged by Analyzer 0 % (0-5); Platelet Count 187 K/mm3 (150-450); RBC Distribution Width CV 13.3 % (11.6-14.6); RBC Distribution Width SD 44.1 fl (35.1-43.9); Red Blood Count 4.35 M/mm3 (4.2-5.4); White Blood Count 6.0 K/mm3 (4.4-11.0)
--- OUTSIDE RECORDS SUMMARY | 2025-08-02 18:34 | XMS RPT_ITS | CCD ---
Author Organization [facility] Care Team Providers Care Food Concession Manager Name Role Phone Basilia Gamble N Unavailable Basilia Gamble N Unavailable Basilia Gamble N Unavailable REHAN LUCERO DO Primary Care Physician [phone] Connor PT, Stephanie Unavailable Unavailable Dr. Rehan Lucero Primary Care Provider Dr. Aakash Springer Attending Provider [phone] Dr. Aakash Springer Referring Provider [phone] Dr. Rehan Lucero Referring Provider [phone] Waldo PRITCHETT, SHREYAS-C Autumn Attending Provider Dr. Rehan Lucero Primary Care Provider Dr. Aakash Springer Attending Provider [phone] Dr. Aakash Springer Referring Provider [phone] Dr. Rehan Lucero Referring Provider [phone]) Dr. Rehan Lucero Primary Care Provider Dr. Aakash Springer Attending Provider [phone] REHAN LUCERO DO Primary Care Physician [phone]) Dr. Rehan Lucero Primary Care Provider Dr. Rehan Lucero Referring Provider [phone]) Mckenzie Ha Attending Provider Unavailable Wlado PRITCHETT, DIESEL POWER SHOVEL OPERATOR-C Autumn Attending Provider Dr. Rehan Lucero Primary Care Provider Dr. Rehan Lucreo Referring Provider [phone] Mckenzie Ha Attending Provider Unavailable Dr. Aakash Springer Attending Provider [phone] Aakash Springer Referring Provider [phone] Rehan Lucero Primary Care Provider Dr. Rehan Lucero Referring Provider [phone] Waldo DIESEL POWER SHOVEL OPERATOR, DIESEL POWER SHOVEL OPERATOR-C Autumn Attending Provider Dr. Rehan Lucero Primary Care Provider Dr. Rehan Lucero Referring Provider [phone] Waldo DIESEL POWER SHOVEL OPERATOR, DIESEL POWER SHOVEL OPERATOR-C Autumn Attending Provider NIC MARTINEZ, REHAN Primary Care Unavailable RAMSES FERNANDES, DR BALDWIN Attending Unavailabl e NIC DO, REHAN Attending Unavailable NIC DO, REHAN Primary Care Unavailable NIC DO, REHAN Attending Unavailable NIC DO, REHAN Primary Care Unavailable NIC DO, REHAN Attending Unavailable NIC DO, REHAN Primary Care Unavailable NIC DO, REHAN Attending Unavailable NIC DO, REHAN Primary Care Unavailable NIC MARTINEZ, REHAN Primary Care Unavailable MAST SUPERVISOR ACCOUNTS RECEIVABLE-SANIPRACTIC PHYSICIAN, REBECA Attending UnavailDr. Rehan Reyes DO Primary Care Provider [phone] Heather MARTINEZ, Dr. Oliver Attending Provider [phone] Benito Romero DO Emergency Provider Dr. Braydon Nathan DO Attending Provider Dr. Braydon Nathan DO Emergency Provider Fco FERNANDES, Jamir Attending Provider Unavailable Dr. Rehan Lucero DO Referring Provider Renee Mclean Attending Provider [phone] Albin Plummer MD Emergency Provider Dr. Aguilar Gale DO Admit Provider Dr. Aguilar Gale DO Attending Provider Dr. Aguilar Gale DO Other Provider Jerri FERNANDES, Dr. Britt Chaves Attending Provider Jerri FERNANDES, Dr. Britt Chaves Other Provider STEPHANIE ESPITIA DO Primary Care Physician [phone] STEPHANIE ESPITIA DO Primary Care Unavailable LOUIS PEARCE Attending Unavailable STEPHANIE ESPITIA DO Primary Care Unavailable STEPHANIE ESPITIA DO Attending Unavailable NIC DO, REHAN Primary Care Unavailable LEXIE ROSAS Attending Unavailab le NIC DO, REHAN Primary Care Unavailable NIC DO, REHAN Attending Unavailable NIC DO, REHAN Attending Unavailable NIC DO, REHAN Primary Care Unavailable Nic, Rehan Primary Care Unavailable Aguilar Gale Consulting Unavailable Aguilar Gale Admitting Unavailable Britt Guthrie Attending Unavailable Jerri, Britt Chaves Consulting Unavailable Aguilar Gale Attending Unavailable Nic, Rehan Referring Unavailable Scottie Kim NP Attending Unavailable Stephanie Espitia Primary Care Unavailable Renee Mclean Attending Unavail able Nic, Rehan Primary Care Unavailable Nic, Rehan Referring Unavailable Nic, Rehan Primary Care Unavailable Jamir Blanc Attending Unavailable Nic, Rehan Primary Care Unavailable Jamir Blanc Attending Unavailable Nic, Rehan Primary Care Unavailable Braydon Nathan Attending Unavailable Benito Romero Attending Unavailable Nic, Rehan Primary Care Unavailable Aguilar Gale Admitting Unavailable Aguilar Gale Consulting Unavailable Nic, Rehan Primary Care Unavailable Britt Guthrie Attending Unavailable Dr. Rehan Lucero DO Referring Provider Scottie Zarate Attending Physician Dr. Stephanie Espitia DO Primary Care Physician Allergies Allergy Classification Reported Allergen(s) Allergy Type Date of Onset Reaction(s) Facility (20 sources) Acetaminophen / oxyCODONE; Translations: [acetaminophen-oxy codone] Drug Allergy [facility] (20 sources) Acetaminophen / Propoxyphene; Translations: [acetaminophen-pro poxyphene] Drug Allergy [facility] (20 sources) traMADol; Translations: [tramadol] Drug Allergy 10-18-2021 Unknown [facility] (14 sources) atorvastatin Drug Allergy 10-18-2021 myalgia [facility] (14 sources) oxyCODONE Drug Allergy 10-18-2021 Unknown [facility] (14 sources) Propoxyphene Drug Allergy 10-18-2021 Unknown [facility] (1 source) atorvastatin Drug Allergy 05-25-2025 [facility] Repository (1 source) oxyCODONE Drug Allergy 05-25-2025 [facility] (1 source) Propoxyphene Drug Allergy 05-25-2025 [facility] Medications Current Medications Medication Drug Class(es) Dates Sig (Normalized) Sig (Original) acetaminophen 500 mg oral tablet (6 sources) Start: 02-04-2024 Tylenol Extra Strength 500 mg oral tablet Dose : 1,000 mg = 2 tab(s), Oral, q6hr, 0 Refill(s) Start Date: 02/04/24 Status: Ordered Medication Dispense Status: Completed Total Allowed Fills: 1 Fills Dispensed: 0 albuterol MDI (90 mcg/inh) CFC free inhalation aerosol (2 sources) Start: 06-17-2024 take 1-2 puff(s) by inhalation every four hours as needed for wheezing albuterol MDI (90 mcg/inh) CFC free inhalation aerosol See Instructions, PRN Shortness of breath or wheezing, 1 to 2 puff(s) Inhalation q4h, # 18 gram(s), 0 Refill(s), Pharmacy: [facility]/pharmacy #[id number], Acute bronchitis Shortness of breath, 154, cm, 02/28/24 16:02:00 EDT, Height, kg, 06/17/24 14:07:00 EST, Dosing Weight Start Date: 06/17/24 Status: Ordered amLODIPine 5 mg oral tablet (20 sources) Dihydropyridine Calcium Channel Gilmer Start: 05-25-2025 take 2.5 mg by mouth twice daily Start: 07-29-2024 take 0.5 tablet by m outh every twelve hours amLODIPine 5 mg oral tablet 0.5, Oral, q12hr, # 90 tab(s), 3 Refill(s), Pharmacy: [facility]/pharmacy #[id number], 149.5, cm, 07/29/24 11:07:00 EST, Height, kg, 07/29/24 11:07:00 EST, Dosing Weight Start Date: 07/29/24 Status: Ordered Medication Dispense Status: Completed Quantity: 90.0 Unit: tab(s) Total Allowed Fills: 4 Fills Dispensed: 0 Start: 01-03-2023 End: 05-25-2025 take 1 tablet by mouth once daily Amlodipine 5 mg tablet Discontinued 5 mg PO DAILY 90 3 April 04, 2024 12:04pm May 25, 2025 2:51pm bp aspirin 81 mg delayed release oral tablet (20 sources) Platelet Aggregation Inhibitor, Nonsteroidal Anti-inflammatory Drug Start: 10-22-2020 aspirin 81 mg ora l delayed release tablet Dose : 81 mg = 1 tab(s), Oral, qDay, 0 Refill(s) Start Date: 10/22/20 Status: Ordered Start: 04-24-2019 take 1 tablet by clair th once daily Aspirin (Adult Aspirin Regimen) 81 mg tablet,delayed release (DR/EC) Active 81 mg PO DAILY April 24, 2019 12:00am blood thinner Complies with drug therapy cephalexin 500 mg oral capsule (2 sources) Cephalosporin Antibacterial Start: 08-09-2021 End: 08-16-2021 Keflex 500 mg oral capsule Dose : 500 mg = 1 cap(s), Oral, q6hr, X 7 day(s), # 28 cap(s), 0 Refill(s), 08/16/21 22:53:00 EST, Localized swelling of left lower leg, 53.9 Start Date: 08/09/21 Stop Date: 08/16/21 Status: Ordered Dextromethorphan (2 sources) Uncompetitive G-wlhmhz-Z-aspartat e Receptor Antagonist, Sigma-1 Agonist Start: 06-17-2024 take 1 mg by mouth every twelve hours Delsym mg =, Oral, q12h, 0 Refill(s) Start Date: 06/17/24 Status: Ordered DME MISCellaneous (20 sources) Start: 08-26-2021 DME MISCellaneous See Instructions, bilateral knee high compression hose 20-30 medium, Dx: R60.9, # 1 EA, 0 Refill(s), Peripheral edema, 56 Start Date: 08/26/21 Status: Ordered Medication Dispense Status: Completed Quantity: 1.0 Unit: EA Total Allowed Fills: 1 Fills Dispensed: 0 Indications: Edema, unspecified; Start: 08-26-2021 DME MISCellane ous See Instructions, bilateral knee high compression hose 20-30 medium, Dx: R60.9, # 1 EA, 0 Refill(s), Peripheral edema, 56 Start Date: 08/26/21 Status: Ordered Quantity: 1.0 Unit: EA Repeat number: 1 Indications: Edema, unspecified; Start: 08-26-2021 DME MISCellane ous See Instructions, bilateral knee high compression hose 20-30 medium, Dx: R60.9, # 1 EA, 0 Refill(s), Peripheral edema, 56 Start Date: 08/26/21 Status: Ordered doxycycline hyclate 100 mg oral capsule (1 source) Tetracycline-class Drug Start: 06-17-2024 End: 06-27-2024 doxycycline hyclate 100 mg oral capsule Dose : 100 mg = 1 cap(s), Oral, BID, X 10 day(s), # 20 cap(s), 0 Refill(s), 06/27/24 3:48:00 PM EST, Pharmacy: [facility]/pharmacy #[id number], Acute bacterial rhinosinusitis, 154, cm, 02/28/24 16:02:00 EDT, Height, 45, kg, 06/17/24 14:07:00 EST, Dosing Weight Start Date: 06/17/24 Stop Date: 06/27/24 Status: Ordered 12 hr guaiFENesin 600 mg extended release oral tablet (1 source) Start: 06-17-2024 End: 06-27-2024 guaiFENesin 600 mg oral tablet, extended release Dose : 600 mg = 1 tab(s), Oral, q12h, X 10 day(s), # 20 tab(s), 0 Refill(s), 06/27/24 3:48:00 PM EST, Pharmacy: [facility]/pharmacy #[id number], Acute bacterial rhinosinusitis Acute bronchitis, 154, cm, 02/28/24 16:02:00 EDT, Height, kg, 06/17/24 14:07:00 EST, Dosing Weight Start Date: 06/17/24 Stop Date: 06/27/24 Status: Ordered ibuprofen 400 mg oral tablet (7 sources) Nonsteroidal Anti-inflammatory Drug Start: 11-04-2024 take 1 tablet by mouth three times daily as needed for pain Ibuprofen 400 mg tablet Active 400 mg PO THREE TIMES A DAY as needed for pain November 26, 2024 12:00am Complies with drug therapy Lopressor 25mg--USE metoprolol tartrate 25 mg oral tablet (3 sources) Start: 01-29-2024 Lopressor 25mg--USE metoprolol tartrate 25 mg oral tablet Dose : 25 mg = 1 tab(s), BID, # 180, 0 Refill(s) Start Date: 01/29/24 Status: Ordered magnesium citrate 100 mg oral tablet (11 sources) Start: 03-16-2021 magnesium citrate 100 mg oral tablet Daily, 0 Refill(s) Start Date: 03/16/21 Status: Ordered metoprolol tartrate 25 mg oral tablet (20 sources) beta-Adrenergic Gilmer Start: 07-31-2023 End: 04-20-2025 take 1 tablet by mouth twice daily Metoprolol Tartrate 25 mg tablet Active 25 mg PO TWICE A DAY 180 April 20, 2025 8:05am heart Complies with drug therapy Start: 06-07-2023 End: 11-27-2023 Metoprolol Tartrate 25 mg ta blet Discontinued 12.5 mg PO TWICE A DAY 45 June 07, 2023 10:00am November 27, 2023 8:35am Start: 06-07-2023 End: 11-27-2023 take 12.5 mg by mouth twice daily Metoprolol Tartrate Discontinued 12.5 MG PO TWICE A DAY 45 June 07, 2023 10:00am November 27, 2023 8:35am Start: 04-25-2019 End: 06-07-2023 take 1 tablet by mouth twice daily Metoprolol Tartrate 25 mg tablet Discontinued 25 mg PO TWICE A DAY April 25, 2019 12:00am June 07, 2023 10:00am nitroglycerin 0.4 mg sublingual tablet (4 sources) Start: 03-16-2021 nitroglycerin 0.4 mg sublingual tablet 0 Refill(s) Start Date: 03/16/21 Status: Ordered Nitrostat 0.4 mg sublingual tablet (9 sources) Start: 03-22-2017 Nitrostat 0.4 mg sublingual tablet Dose : 0.4 mg = 1 tab(s), Sublingual, q5min, PRN as needed for chest pain, # 100 tab(s), 0 Refill(s) Start Date: 03/22/17 Status: Ordered pantoprazole 40 mg delayed release oral tablet (20 sources) Proton Pump Inhibitor Start: 12-31-2020 take 1 tablet by mouth once daily Pantoprazole 40 mg tablet,delayed release (DR/EC) Active 40 mg PO DAILY January 10, 2021 12:00am gerd Complies with drug therapy pramipexole dihydrochloride 0.5 mg oral tablet (20 sources) Nonergot Dopamine Agonist Start: 01-25-2023 pramipexole 0.5 mg oral tablet Dose : 0.5 mg = 1 tab(s), Oral, qDay, # 90 tab(s), 0 Refill(s) Start Date: 01/25/23 Status: Ordered Start: 02-09-2021 End: 10-24-2022 take 1 tablet by mouth at bedtime Pramipexole 0.5 mg tablet Discontinued 0.5 mg PO AT BEDTIME April 21, 2021 12:00am October 24, 2022 1:19pm Probiotic (6 sources) Start: 02-04-2024 Probiotic 0 Re fill(s) Start Date: 02/04/24 Status: Ordered Medication Dispense Status: Completed Total Allowed Fills: 1 Fills Dispensed: 0 Start: 02-04-2024 Probiotic 0 Re fill(s) Start Date: 02/04/24 Status: Ordered Repeat number: 1 Start: 02-04-2024 Probiotic 0 Re fill(s) Start Date: 02/04/24 Status: Ordered sertraline 50 mg oral tablet (20 sources) Serotonin Reuptake Inhibitor Start: 10-24-2021 take 1 tablet by mouth once daily Sertraline 50 mg tablet Active 50 mg PO DAILY April 18, 2022 12:00am mood Complies with drug therapy Start: 01-10-2021 End: 04-18-2022 Sertraline 100 mg tablet Discontinued 50 mg PO DAILY January 10, 2021 12:00am April 18, 2022 1:11pm Start: 01-10-2021 End: 04-18-2022 take 50 mg by mouth once daily Sertraline Discontinued 50 MG PO DAILY January 10, 2021 12:00am April 18, 2022 1:11pm Start: 11-26-2020 sertraline 50 mg oral tablet Dose : 50 mg = 1 tab(s), Oral, qDay, # 90 tab(s), 3 Refill(s), Pharmacy: [facility]/pharmacy #[id number], 149.9, cm, 10/22/20 7:57:00 EST, Height, kg, 11/15/20 11:28:00 EDT, Dosing Weight Start Date: 11/26/20 Status: Ordered Start: 04-24-2019 End: 06-03-2020 take 1 tablet by mouth once daily Sertraline 100 mg tablet Discontinued 100 mg PO DAILY April 24, 2019 12:00am June 03, 2020 1:56pm sulfamethoxazole 400 mg / trimethoprim 80 mg oral tablet (3 sources) Dihydrofolate Reductase Inhibitor Antibacterial, Sulfonamide Antimicrobial Start: 08-26-2021 End: 09-05-2021 take 1 tablet by mouth twice daily sulfamethoxazole-trimethoprim 400 mg-80 mg oral tablet Dose = 1 tab(s), Oral, BID, drink plenty of fluids, # 20 tab(s), 0 Refill(s), Pharmacy: [facility]/pharmacy #[id number], 149, cm, 08/26/21 15:00:00 EST, Height, 56, kg, 08/16/21 16:51:00 EST, Dosing Weight Start Date: 08/26/21 Stop Date: 09/05/21 Status: Ordered Super B Complex oral tablet (20 sources) Start: 03-22-2017 take 1 tablet by mouth once daily Super B Complex oral tablet Dose = 1 tab(s), Oral, Daily, # 30 tab(s), 0 Refill(s) Start Date: 03/22/17 Status: Ordered levothyroxine sodium 0.1 mg oral tablet (20 sources) l-Thyroxine Start: 02-17-2024 take 1 tablet by mouth once daily Levothyroxine 100 mcg tablet Active 100 ug PO DAILY February 17, 2024 12:00am thyroid Complies with drug therapy Start: 07-31-2023 End: 09-04-2025 levothyroxine 100 mcg (0.1 m g) oral tablet Dose : 100 mcg = 1 tab(s), Oral, qDay, # 90 tab(s), 3 Refill(s), Pharmacy: [facility]/pharmacy #[id number], 149.5, cm, 07/29/24 11:07:00 EST, Height, kg, 07/29/24 11:07:00 EST, Dosing Weight Start Date: 07/31/24 Stop Date: 09/04/25 Status: Ordered Medication Dispense Status: Completed Quantity: 90.0 Unit: tab(s) Total Allowed Fills: 4 Fills Dispensed: 0 Start: 06-07-2023 End: 02-17-2024 take 2 capsules by mouth once daily Levothyroxine 50 mcg capsule Discontinued 100 ug PO DAILY June 07, 2023 9:43am February 17, 2024 2:16pm Start: 05-17-2023 levothyroxine 100 mcg (0.1 mg) oral tablet Dose : 100 mcg = 1 tab(s), Oral, qDay, # 90 tab(s), 0 Refill(s), [id number], 151, cm, 05/09/23 14:34:00 EDT, Height, kg, 05/09/23 14:34:00 EDT, Dosing Weight Start Date: 05/17/23 Status: Ordered Start: 03-15-2023 take 0.5 tablet by m outh once daily levothyroxine 50 mcg (0.05 mg) oral tablet See Instructions, TAKE 0.5 TABLET BY MOUTH EVERY DAY, # 45 tab(s), 3 Refill(s), [id number], 150, cm, 01/25/23 14:09:00 EDT, Height, kg, 01/25/23 14:09:00 EDT, Dosing Weight Start Date: 03/15/23 Status: Ordered Start: 03-31-2022 take 1 tablet by clair th once daily levothyroxine 50 mcg (0.05 mg) oral tablet See Instructions, TAKE 1 TABLET BY MOUTH EVERY DAY, # 90 tab(s), 3 Refill(s), Pharmacy: [facility]/pharmacy #[id number], 149, cm, 03/24/22 14:43:00 EDT, Height, kg, 03/24/22 14:43:00 EDT, Dosing Weight Start Date: 03/31/22 Status: Ordered Start: 04-04-2021 take 1 tablet by clair th once daily levothyroxine 50 mcg (0.05 mg) oral tablet See Instructions, TAKE 1 TABLET BY MOUTH EVERY DAY, # 90 tab(s), 3 Refill(s), Pharmacy: [facility]/pharmacy #[id number], 149.9, cm, 03/28/21 10:19:00 EDT, Height, kg, 03/28/21 10:19:00 EDT, Dosing Weight Start Date: 04/04/21 Status: Ordered Start: 04-24-2019 End: 06-07-2023 take 1 capsule by mouth once daily Levothyroxine 50 mcg capsule Discontinued 50 ug PO DAILY April 24, 2019 12:00am June 07, 2023 9:45am Start: 12-25-2016 LEVO-T 50 MCG TABS LEVOTHYROXINE SODIUM [id number] Jose Proctor Start: 12-25-2016 LEVO-T 50 MCG TABS LEVOTHYROXINE SODIUM [id number] Jose Proctor traMADol hydrochloride 50 mg oral tablet (17 sources) Opioid Agonist Start: 11-29-2024 take 1 tablet by mouth every eight hours as needed for pain Tramadol 50 mg tablet Active 50 mg PO Q8H as needed for pain 15 5 0 November 29, 2024 12:00am Complies with drug therapy Start: 02-04-2024 traMADol 25 mg oral tablet Dose : 25 mg = 1 tab(s), Oral, q12h, PRN as needed for pain, not to exceed 400 mg/day, 0 Refill(s), 47.5 Start Date: 02/04/24 Status: Ordered Medication Dispense Status: Completed Total Allowed Fills: 1 Fills Dispensed: 0 Start: 02-04-2024 traMADol 25 mg oral tablet Dose : 25 mg = 1 tab(s), Oral, q12h, PRN as needed for pain, not to exceed 400 mg/day, 0 Refill(s), 47.5 Start Date: 02/04/24 Status: Ordered Repeat number: 1 Start: 02-04-2024 traMADol 25 mg oral tablet Dose : 25 mg = 1 tab(s), Oral, q12h, PRN as needed for pain, not to exceed 400 mg/day, 0 Refill(s), 47.5 Start Date: 02/04/24 Status: Ordered Start: 11-27-2023 End: 11-29-2024 take 25-50 mg by mouth three times daily as needed for pain Tramadol 50 mg tablet Discontinued 25 - 50 mg PO 3 TIMES DAILY NEEDED as needed for pain November 27, 2023 12:00am November 29, 2024 7:44am Vitamin B Complex (9 sources) Start: 04-24-2019 take 1 tablet by clair th once daily Vitamin B Complex Active 1 TABLET PO DAILY April 24, 2019 7:32am Start: 04-24-2019 take 1 tablet by clair th once daily Vitamin B Complex Active 1 TABLET PO DAILY April 24, 2019 12:00am vitamin b12 1 mg oral tablet (9 sources) Vitamin B12 Start: 05-19-2019 Vitamin B12 10 00 mcg oral tablet Dose : 1,000 mcg = 1 tab(s), Oral, qDay, # 30 tab(s), 0 Refill(s) Start Date: 05/19/19 Status: Ordered Vitamin B12 1000 mcg oral tablet (14 sources) Start: 05-19-2019 Vitamin B12 10 00 mcg oral tablet Dose : 1,000 mcg = 1 tab(s), Oral, qDay, # 30 tab(s), 0 Refill(s) Start Date: 05/19/19 Status: Ordered Vitamin C 250 mg oral tablet (5 sources) Start: 01-25-2023 Vitamin C 250 mg oral tablet Dose : 250 mg = 1 tab(s), Oral, qDay, # 30 tab(s), 0 Refill(s) Start Date: 01/25/23 Status: Ordered Vitamin D3 5000 intl units oral capsule (20 sources) Start: 02-06-2013 Vitamin D3 500 0 intl units oral capsule Dose : 5,000 International_Unit = 1 cap(s), Oral, Daily, 0 Refill(s) Start Date: 02/06/13 Status: Ordered Completed/Discontinued Medications Medication Drug Class(es) Dates Sig (Normalized) Sig (Original) acetaminophen 325 mg / HYDROcodone bitartrate 10 mg oral tablet (16 sources) Opioid Agonist Start: 04-24-2019 End: 10-18-2021 Hydrocodone-Acetami nophen 10-325 mg tablet Discontinued 1 {tbl} PO EVERY 6 HOURS as needed for Pain 0 April 24, 2019 12:00am October 18, 2021 2:05pm Start: 04-24-2019 End: 10-18-2021 take 1 tablet by mouth every six hours Hydrocodone-Acetaminophen Discontinued 1 TABLET PO EVERY 6 HOURS April 24, 2019 12:00am October 18, 2021 2:05pm Start: 12-25-2016 VICODIN HP 10- 300 MG TABS HYDROCODONE-ACETAMINOPHEN [id number] Jose Proctor Start: 12-25-2016 VICODIN HP 10- 300 MG TABS HYDROCODONE-ACETAMINOPHEN [id number] Jose Proctor B COMPLEX VITAMINS (1 source) Start: 12-25-2016 B COMPLEX 50 T ABS B COMPLEX VITAMINS [id number] Jose Proctor B COMPLEX VITAMINS (1 source) Start: 12-25-2016 B COMPLEX 50 T ABS B COMPLEX VITAMINS [id number] Jose Proctor baclofen 5 mg oral tablet (4 sources) gamma-Aminobuty mk Acid-ergic Agonist Start: 06-25-2022 End: 06-27-2022 baclofen 5 mg oral tablet Dose : 5 mg = 1 tab(s), Oral, BID, # 4 tab(s), 0 Refill(s) Start Date: 06/25/22 Stop Date: 06/27/22 Status: Ordered calcium carbonate 1500 mg oral tablet (20 sources) Start: 04-24-2019 End: 02-17-2024 take 1 tablet by mouth once daily Calcium Carbonate 600 mg calcium (1,500 mg) tablet Discontinued 600 mg PO DAILY April 24, 2019 12:00am February 17, 2024 2:18pm Start: 03-22-2017 Caltrate 600 m g oral tablet Dose : 600 mg = 1 tab(s), Oral, BID, # 60 tab(s), 0 Refill(s) Start Date: 03/22/17 Status: Ordered celecoxib 100 mg oral capsule (14 sources) Nonsteroidal Anti-inflammatory Drug Start: 04-24-2019 End: 11-27-2019 take 1 capsule by mouth twice daily Celecoxib 100 mg capsule Discontinued 100 mg PO TWICE A DAY April 24, 2019 12:00am November 27, 2019 2:54pm cholecalciferol 0.125 mg oral capsule (14 sources) Vitamin D Start: 04-24-2019 End: 02-17-2024 take 1 capsule by mouth once daily Cholecalciferol (Vitamin D3) 5,000 unit capsule Discontinued 5000 U PO DAILY April 24, 2019 12:00am February 17, 2024 2:18pm 1 ml denosumab 60 mg/ml prefilled syringe (20 sources) RANK Ligand Inhibitor Start: 11-26-2024 Prolia 60 mg/mL subcutaneous solution Dose : 60 mg = 1 mL, Subcutaneous, q6mo, Diagnosis: M81.0, # 1 mL, 0 Refill(s), Osteoporosis Start Date: 12/30/24 Status: Ordered Medication Dispense Status: Completed Quantity: 1.0 Unit: mL Total Allowed Fills: 1 Fills Dispensed: 0 Indications: Age-related osteoporosis without current pathological fracture; Start: 05-26-2024 Prolia 60 mg/m L subcutaneous solution Dose : 60 mg = 1 mL, Subcutaneous, q6mo, Diagnosis: M81.0, # 1 mL, 0 Refill(s), Osteoporosis Start Date: 05/26/24 Status: Ordered Start: 06-05-2023 End: 02-17-2024 Denosumab (Prolia) 60 mg/mL syringe Discontinued 60 mg SC every 6 months June 07, 2023 12:00am February 17, 2024 2:18pm Start: 02-20-2022 Prolia 60 mg/m L subcutaneous solution Dose : 60 mg = 1 mL, Subcutaneous, q6mo, # 1 mL, 0 Refill(s), Osteoporosis Start Date: 02/20/22 Status: Ordered Start: 01-28-2020 Prolia 60 mg/m L subcutaneous solution Dose : 60 mg = 1 mL, Subcutaneous, q6mo, # 1 mL, 0 Refill(s), Osteoporosis, 150, cm, 09/24/19 11:04:00 EST, Height, kg, 09/24/19 11:04:00 EST, Dosing Weight Start Date: 01/28/20 Status: Ordered esomeprazole 10 mg granules for oral suspension (2 sources) Proton Pump Inhibitor Start: 12-25-2016 NEXIUM 10 MG PACK ESOMEPRAZOLE MAGNESIUM [id number] Jose Proctor fluticasone propionate 0.05 mg/actuat metered dose nasal spray (2 sources) Corticosteroid Start: 06-17-2024 End: 07-17-2024 take 100 ug nasal route once daily fluticasone 50 mcg/inh NASAL spray 100 mcg Dose = 2 spray(s), Nostril, each, qDay, shake well before using, # 16 gram(s), 0 Refill(s), Pharmacy: [facility]/pharmacy #[id number], Acute bacterial rhinosinusitis Bilateral serous otitis media, 154, cm, 02/28/24 16:02:00 EDT, Height, kg, 06/17/24 14:07:00 EST, Dosing Weight Start Date: 06/17/24 Stop Date: 07/17/24 Status: Ordered furosemide 20 mg oral tablet (20 sources) Loop Diuretic Start: 04-21-2021 End: 04-18-2022 Furosemide 40 mg tablet Discontinued 20 mg PO DAILY as needed April 18, 2022 1:11pm April 18, 2022 1:13pm Start: 04-21-2021 End: 04-18-2022 take 20 mg by mouth once daily Furosemide Discontinued 20 MG PO DAILY April 18, 2022 1:11pm April 18, 2022 1:13pm Start: 03-16-2021 End: 06-07-2023 take 1 tablet by mouth once daily as needed Furosemide 20 mg tablet Discontinued 20 mg PO DAILY as needed December 06, 2022 1:25pm June 07, 2023 9:45am Start: 06-03-2020 End: 04-21-2021 take 1 tablet by mouth twice daily Furosemide 40 mg tablet Discontinued 40 mg PO TWICE A DAY June 03, 2020 1:56pm April 21, 2021 1:59pm Start: 04-24-2019 End: 06-03-2020 take 1 tablet by mouth once daily Furosemide 40 mg tablet Discontinued 40 mg PO DAILY April 24, 2019 12:00am June 03, 2020 1:56pm Start: 12-25-2016 FUROSEMIDE 40 MG TABS FUROSEMIDE [id number] Jose Proctor gabapentin 100 mg oral capsule (20 sources) Anti-epileptic Agent Start: 06-07-2023 End: 11-27-2023 take 2 capsules by mouth once daily Gabapentin 100 mg capsule Discontinued 100 mg PO THREE TIMES A DAY June 07, 2023 9:44am November 27, 2023 8:33am 300 mg qhs (every other evening) Start: 05-09-2023 gabapentin 300 mg oral capsule 0 Refill(s), 51.6 Start Date: 05/09/23 Status: Ordered Start: 08-16-2021 End: 02-08-2025 take 1 capsule by mouth once daily Gabapentin 100 mg capsule Discontinued 100 mg PO DAILY December 07, 2023 12:00am December 07, 2023 1:04pm Start: 08-16-2021 End: 06-07-2023 take 1 capsule by mouth three times daily Gabapentin 100 mg capsule Discontinued 100 mg PO THREE TIMES A DAY October 18, 2021 1:00am June 07, 2023 9:45am Start: 04-25-2019 End: 06-03-2020 take 1 capsule by mouth twice daily Gabapentin 100 mg capsule Discontinued 100 mg PO TWICE A DAY 60 0 April 25, 2019 12:00am June 03, 2020 1:56pm isosorbide dinitrate 5 mg oral tablet (20 sources) Nitrate Vasodilator Start: 03-16-2021 End: 01-01-2023 Isosorbide Dinitrate 5 mg tablet Discontinued 5 mg PO ONCE as needed December 06, 2022 1:39pm January 01, 2023 4:59pm allow nitrate-free interval of 12-14 hrs per 24-hr period Start: 03-16-2021 End: 01-03-2023 take 1 tablet by mouth once daily as needed Isosorbide Dinitrate 5 mg tablet Discontinued 5 mg PO DAILY as needed January 01, 2023 4:58pm January 03, 2023 10:16am allow nitrate-free interval of 12-14 hrs per 24-hr period lidocaine 0.05 mg/mg medicated patch (20 sources) Antiarrhythmic, Amide Local Anesthetic Start: 04-21-2021 End: 10-18-2021 Lidocaine 5 % adhesive patch,medicated Discontinued 1 NMA TOPICAL DAILY April 21, 2021 12:00am October 18, 2021 2:05pm leave on most painful area for up to 12 hrs Start: 01-19-2021 lidocaine 5% t opical patch Apply 2 patch(es), Transdermal, Daily, remove patches after 12 hours, # 60 patch(es), 5 Refill(s), Pharmacy: [facility]/pharmacy #[id number], Chronic back pain, 149.9, cm, 12/31/20 14:10:00 EDT, Height, 51, kg, 12/31/20 14:10:00 EDT, Dosing Weight Start Date: 01/19/21 Status: Ordered lisinopril 5 mg oral tablet (20 sources) Angiotensin Converting Enzyme Inhibitor Start: 01-10-2023 End: 12-07-2023 take 1 tablet by mouth once daily Lisinopril 5 mg tablet Discontinued 5 mg PO DAILY 90 June 07, 2023 9:59am December 07, 2023 3:52pm loperamide hydrochloride 2 mg oral capsule (20 sources) Opioid Agonist Start: 06-07-2023 loperamide 2 m g oral capsule See Instructions, 1-2 cap(s) q6hr prn for loose stools Oral not to exceed 8 capsules, or 16 mg, in 24 hours, # 30 cap(s), 5 Refill(s), Pharmacy: [facility]/pharmacy #[id number], 151, cm, 05/09/23 14:34:00 EDT, Height, kg, 05/18/23 15:02:00 EDT, Dosing Weight Start Date: 06/07/23 Status: Ordered Start: 08-29-2022 End: 12-27-2022 loperamide 2 mg oral capsule 1 to 2 cap(s), Oral, q6hr, PRN loose stools, not to exceed 8 capsules, or 16 mg, in 24 hours, X 30 day(s), # 120 cap(s), 3 Refill(s), 12/27/22 19:37:00 EDT, [id number], 147.9, cm, 07/25/22 13:40:00 EST, Height Start Date: 08/29/22 Stop Date: 12/27/22 Status: Ordered Start: 04-18-2022 End: 02-16-2025 take 1 capsule by mouth every six hours as needed for diarrhea Loperamide (Imodium A-D) 2 mg capsule Active 2 mg PO EVERY 6 HOURS as needed for Diarrhea April 18, 2022 12:00am Complies with drug therapy nitroglycerin 0.4 mg sublingual tablet (20 sources) Nitrate Vasodilator Start: 04-24-2019 End: 04-10-2024 Nitroglycerin 0.4 mg tablet, sublingual Discontinued 0.4 mg SL every 5 to 15 minutes 30 0 April 25, 2019 9:06am April 10, 2024 1:16pm Start: 04-24-2019 End: 04-25-2019 Nitroglycerin Active 0.4 MG SL every 5 to 15 minutes 30 April 25, 2019 9:06am Start: 03-22-2017 Nitrostat 0.4 mg sublingual tablet Dose : 0.4 mg = 1 tab(s), Sublingual, q5min, PRN as needed for chest pain, # 100 tab(s), 0 Refill(s) Start Date: 03/22/17 Status: Ordered Quantity: 100.0 Unit: tab(s) Repeat number: 1 Drug Treatment Unknown - unknown (1 source) No information available. Prolia 60 mg/mL subcutaneous solution (9 sources) Start: 01-28-20 Prolia 60 mg/mL subcutaneous solution Dose : 60 mg = 1 mL, Subcutaneous, q6mo, # 1 mL, 0 Refill(s), Osteoporosis, 150, cm, 09/24/19 11:04:00 EST, Height, kg, 09/24/19 11:04:00 EST, Dosing Weight Start Date: 01/28/20 Status: Ordered spironolactone 25 mg oral tablet (20 sources) Aldosterone Antagonist Start: 04-24-20 End: 07-14-20 take 1 tablet by mouth once daily Spironolactone 25 mg tablet Discontinued 25 mg PO DAILY 90 3 June 07, 2023 10:00am July 14, 2024 5:33pm Start: 12-25-2016 SPIRONOLACTONE 25 MG TABS SPIRONOLACTONE [id number] Jose Proctor traZODone hydrochloride 50 mg oral tablet (20 sources) Serotonin Reuptake Inhibitor Start: 02-09-2021 End: 04-18-2022 take 1 tablet by mouth at bedtime as needed Trazodone 50 mg tablet Discontinued 50 mg PO AT BEDTIME as needed April 21, 2021 12:00am April 18, 2022 1:13pm Vitamin B Complex tablet (5 sources) Start: 04-24-2019 End: 02-17-2024 Vitamin B Complex tablet Discontinued 1 {tbl} PO DAILY April 24, 2019 12:00am February 17, 2024 2:18pm Problems Active Problems Problem Classification Problem Date Documented Da te Episodic/Chronic Abdominal hernia (20 sources) Hiatal hernia; Translations: [Diaphragmatic hernia without obstruction or gangrene] 08-25-2020 Episodic Abdominal pain (5 sources) Epigastric pain; Translations: [Epigastric pain] 02-25-2024 Episodic Acute and unspecified renal failure (5 sources) Prerenal azotemia; Translations: [Unspecified kidney failure] 02-25-2024 Chronic Anxiety disorders (20 sources) Anxiety 02-01-2021 Chronic Cardiac dysrhythmias (20 sources) Paroxysmal atrial fibrillation; Translations: [Paroxysmal atrial fibrillation] Onset: 5 Chronic Cardiac dysrhythmias (9 sources) Bradycardia 05-18-2023 Episodic Chronic kidney disease (20 sources) Chronic kidney disease; Translations: [Chronic kidney disease, unspecified] Onset: 5 03-22-2017 Chronic Chronic kidney disease (4 sources) Chronic kidney disease; Translations: [Chronic kidney disease, stage 3b] Onset: 3 Conditions associated with dizziness or vertigo (20 sources) Lightheadedness; Translations: [Dizziness] Onset: 3 03-16-2021 Episodic Congestive heart failure; nonhypertensive (20 sources) Chronic diastolic heart failure; Translations: [Chronic systolic heart failure] 02-08-2018 Chronic Coronary atherosclerosis and other heart disease (20 sources) Coronary arteriosclerosis; Translations: [Coronary atherosclerosis] 03-22-2017 Chronic Crushing injury or internal injury (8 sources) Injury of kidney 08-30-2021 Episodic Diabetes mellitus without complication (3 sources) Hyperglycemia; Translations: [Hyperglycemia, unspecified] Onset: 5 03-19-2025 Episodic Disorders of lipid metabolism (20 sources) Hyperlipidemia; Translations: [Hyperlipidemia, unspecified] Onset: 5 03-22-2017 Chronic E Codes: Fall (3 sources) Fall in home 06-05-2022 Esophageal disorders (20 sources) Eosinophilic esophagitis; Translations: [Gastroesophageal reflux disease] 02-01-2021 Chronic Essential hypertension (20 sources) Hypertensive disorder; Translations: [Essential hypertension] Onset: 3 03-22-2017 Chronic Fluid and electrolyte disorders (15 sources) Hyperkalemia; Translations: [Hyperkalemia] 05-11-2023 Episodic Headache; including migraine (10 sources) Headache; Translations: [Headache] 01-11-2023 Episodic Heart valve disorders (20 sources) Tricuspid incompetence, non-rheumatic ; Translations: [Nonrheumatic tricuspid (valve) insufficiency] Onset: 5 Chronic Heart valve disorders (11 sources) Irregular heart beat 05-09-2023 Episodic Hypertension with complications and secondary hypertension (1 source) Hypertensive heart and chronic kidney disease with heart failure and stage 1 through stage 4 chronic kidney disease, or unspecified chronic kidney disease; Translations: [Hypertensive heart and chronic kidney disease with heart failure and stage 1 through stage 4 chronic kidney disease, or unspecified chronic kidney disease] Onset: 5 Chronic Malaise and fatigue (20 sources) Asthenia; Translations: [Weakness] 09-07-2021 Episodic Mood disorders (20 sources) Recurrent depression 07-07-2020 Chronic Nausea and vomiting (20 sources) Nausea 07-05-2020 Episodic Open wounds of head; neck; and trunk (1 source) Scalp laceration; Translations: [Laceration without foreign body of scalp, initial encounter] Onset: 2 Episodic Osteoarthritis (2 sources) Osteoarthritis of hip; Translations: [Unilateral primary osteoarthritis, right hip] Onset: 7 01-15-2017 Chronic Osteoporosis (20 sources) Osteoporosis; Translations: [Age-related osteoporosis without current pathological fracture] Onset: 5 03-22-2017 Chronic Other circulatory disease (10 sources) H/O: atrial fibrillation; Translations: [Personal history of other diseases of the circulatory system] 01-11-2023 Episodic Other circulatory disease (5 sources) H/O: heart disorder; Translations: [Personal history of other diseases of the circulatory system] 02-25-2024 Episodic Other connective tissue disease (20 sources) Fibromyositis 03-22-2017 Episodic Other connective tissue disease (12 sources) Foot pain 07-25-2022 Episodic Other gastrointestinal disorders (9 sources) Irritable bowel syndrome 06-21-2021 Chronic Other gastrointestinal disorders (20 sources) Irritable bowel syndrome with diarrhea 01-17-2022 Chronic Other gastrointestinal disorders (20 sources) Dysphagia 08-03-2020 Episodic Other hereditary and degenerative nervous system conditions (20 sources) Restless legs 01-26-2021 Chronic Other injuries and conditions due to external causes (20 sources) H/O: vertebral fracture 08-03-2020 Episodic Other injuries and conditions due to external causes (8 sources) Injury of head; Translations: [Unspecified injury of head, initial encounter] 11-27-2023 Episodic Other injuries and conditions due to external causes (1 source) Other specified injuries of thorax, initial encounter; Translations: [Contusion of rib on right side] 12-05-2023 Episodic Other lower respiratory disease (14 sources) Dyspnea; Translations: [Dyspnea, unspecified] 01-20-2021 Episodic Other lower respiratory disease (14 sources) Hypoxia; Translations: [Hypoxemia] 01-20-2021 Episodic Other lower respiratory disease (13 sources) Dyspnea on exertion; Translations: [Other forms of dyspnea] 04-18-2022 Episodic Other nervous system disorders (20 sources) Carpal tunnel syndrome 08-16-2021 Chronic Other nervous system disorders (7 sources) Impairment of balance 12-04-2023 Episodic Other non-traumatic joint disorders (17 sources) Hip pain; Translations: [Pain in right hip] Onset: 7 12-25-2016 Episodic Other screening for suspected conditions (not mental disorders or infectious disease) (20 sources) Plain X-ray result abnormal 11-16-2020 Chronic Other skin disorders (1 source) Localized swelling, mass and lump, lower limb; Translations: [Localized swelling, mass and lump, left lower limb] Onset: Episodic Phlebitis; thrombophlebitis and thromboembolism (5 sources) Thrombophlebitis; Translations: [Phlebitis and thrombophlebitis of unspecified site] 01-14-2024 Episodic Pulmonary heart disease (14 sources) Pulmonary arterial hypertension; Translations: [Secondary pulmonary arterial hypertension] 04-24-2019 Chronic Residual codes; unclassified (20 sources) Chronic pain 03-18-2020 Episodic Residual codes; unclassified (20 sources) Peripheral edema 08-26-2021 Episodic Rheumatoid arthritis and related disease (20 sources) Rheumatoid arthritis; Translations: [Rheumatoid arthritis, unspecified] Onset: 5 03-22-2017 Chronic Skin and subcutaneous tissue infections (7 sources) Cellulitis of lower limb 08-16-2021 Episodic Spondylosis; intervertebral disc disorders; other back problems (20 sources) Neck pain; Translations: [Backache] 02-22-2022 Episodic Superficial injury; contusion (20 sources) Contusion of elbow; Translations: [Contusion of unspecified elbow, initial encounter] Onset: 2 Episodic Syncope (20 sources) Syncope; Translations: [Syncope and collapse] Onset: 9 Episodic Thyroid disorders (20 sources) Hypothyroidism; Translations: [Hypothyroidism, unspecified] Onset: 3 03-22-2017 Chronic Unclassified (1 source) No current problems or disability 12-27-2016 Unclassified (20 sources) History of SARS-CoV-2 06-21-2021 Unclassified (20 sources) Patient encounter status 06-22-2020 Viral infection (20 sources) Disease caused by 2019-nCoV; Translations: [COVID-19] Onset: 1 09-07-2021 Episodic Past or Other Problems Problem Classification Problem Date Documented Da te Episodic/Chronic Administrative/social admission (8 sources) Finding related to ability to move; Translations: [Other reduced mobility] Onset: 11-29-2024 11-27-2024 Episodic Coronary atherosclerosis and other heart disease (9 sources) Presence of coronary angioplasty implant and graft; Translations: [Percutaneous transluminal coronary angioplasty status] Onset: 05-31-2012 Episodic E Codes: Fall (20 sources) Fall; Translations: [Unspecified fall, initial encounter] Onset: 05-30-2022 Episodic Fracture of lower limb (14 sources) Fracture of patella; Translations: [Unspecified fracture of left patella, initial encounter for closed fracture] Onset: 11-13-2024 10-14-2024 Episodic Fracture of upper limb (11 sources) Closed fracture of clavicle; Translations: [Fracture of unspecified part of left clavicle, initial encounter for closed fracture] Onset: 11-29-2024 11-27-2024 Episodic Other connective tissue disease (2 sources) Other bursitis of hip, unspecified hip; Translations: [Iliopsoas bursitis] Onset: 12-25-2016 01-15-2017 Episodic Other fractures (1 source) Displaced fracture of lateral end of left clavicle, subsequent encounter for fracture with routine healing; Translations: [Displaced fracture of lateral end of left clavicle, subsequent encounter for fracture with routine healing] Onset: 12-26-2024 Episodic Other injuries and conditions due to external causes (1 source) Unspecified injury of left lower leg, initial encounter; Translations: [Unspecified injury of left lower leg, initial encounter] Onset: 10-18-2024 Episodic Other non-traumatic joint disorders (1 source) Pain in left knee; Translations: [Pain in left knee] Onset: 10-18-2024 Episodic Residual codes; unclassified (13 sources) Other specified postprocedural states; Translations: [Personal history of surgery to other organs] Onset: 05-05-2019 Episodic Results Test Name Value Interpretation Reference Range Facility Cardiology Visit Reporton Cardiology Visit Report [facility] [address] [place] [address] OFFICE VISIT Date of Service: 05/25/25 MR#: [id number] Acct: [id number] Name: RADHA MAYERS Rep #: [id number] : 1935 Provider: MICHELLE freeman Age/Sex: 89/F Location: [facility] Status: Signed HPI HPI History of Present Illness Details: This is an 89 year old female who presents here today for a cardiovascular follow up visit. She does have a history of coronary artery disease with angioplasty and stenting to her LAD in 2011. She underwent a heart catheterization in 2012 and 2016 for chest discomfort. Diagnostic heart catheterization demonstrated 30% distal left main, 30% ostial LAD both of which underwent FFR which were negative, patent stent in the LAD was noted, circumflex artery had mild diffuse disease with a 50% OM lesion. The right coronary artery was dominant and had mild diffuse disease. Medical therapy was recommended. She also has a history of aortic valve regurgitation, hypertension, hyperlipidemia, and chronic kidney disease. Her loop recorder had reached MELISSA, and she had this explanted in October of 2022. She fell in 09/2024 and fractured her left patella. She sees Dr. Ziegler for this. She did spend time in a SNF. She is now at home with her daughter. She is getting home therapy. She presents to the office in a wheel chair, accompanied by her daughter. She denies chest, arm, jaw, or neck discomfort. She denies palpitations. She denies bilateral lower extremity edema. She denies claudication. She denies shortness of breath with activity, shortness of breath at rest, orthopnea, or PND. She denies chronic cough. She denies significant, sudden weight gain. She denies lightheadedness, dizziness, near-syncope, or syncope. She denies blood in urine, blood in stool, or epistaxis. He denies fever with chills. She denies myalgia. She states weakness and fatigue. Her exercise level has remained stable. 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 Inside Required: No Is patient in pain?: No Allergies atorvastatin (From Lipitor) Adverse Reaction (Verified 05/25/25 14:50) myalgia oxycodone (From Percocet) Adverse Reaction (Verified 05/25/25 14:50) Unknown propoxyphene (From Darvocet-N 100) Adverse Reaction (Verified 05/25/25 14:50) Unknown Medications ???Medication ???Instructions ???Recorded ???Confirmed ???Type aspirin 81 mg tablet,delayed 81 mg PO DAILY blood thinner 04/2405/25/25 History release (Adult Aspirin Regimen) pantoprazole 40 mg tablet,delayed 40 mg PO DAILY gerd 01/10/2105/13 History release loperamide 2 mg capsule (Imodium 2 mg PO Q6H PRN Diarrhea 04/18/22 05/25/25 History A-D) sertraline 50 mg tablet 50 mg PO DAILY mood 04/18/2205/25 History gabapentin 100 mg capsule 100 mg PO DAILY pain 12/07/2305/13 History levothyroxine 100 mcg tablet 100 mcg PO DAILY thyroid 02/17/24 05/25/25 History nitroglycerin 0.4 mg sublingual 0.4 mg sublingual Q5-15M #30 tabs 04/10/24 05/25/25 Rx tablet spironolactone 25 mg tablet 25 mg PO DAILY water pill #90 tabs 07/14/24 05/25/25 Rx denosumab 60 mg/mL subcutaneous 60 mg subcut [id number] oa 11/26/24 05/25/25 History syringe (Prolia) ibuprofen 400 mg tablet 400 mg PO TID PRN pain 11/26/24 History tramadol 50 mg tablet 50 mg PO Q8H PRN pain 5 days #15 0 11/29/24 05/25/25 Rx tabs metoprolol tartrate 25 mg tablet 25 mg PO BID heart #180 tabs 04/2005/25/25 Rx amlodipine 5 mg tablet 2.5 mg PO BID bp 05/25/25 History Ejection fraction %: 60 Have you fallen in the past year?: Yes PFSH Medical History (Reviewed 05/25/25 @ 15:08 by Scottie Kim DIESEL POWER SHOVEL OPERATOR, DIESEL POWER SHOVEL OPERATOR-C) Immobility Closed fracture of left clavicle Fall (HFpEF) heart failure with preserved ejection fraction Osteoarthritis of hip (12/25/16) Chronic kidney disease (CKD) Weakness generalized COVID-19 (12/2020) EE (eosinophilic esophagitis) Paroxysmal atrial fibrillation Syncope (03/2019) Bilateral pleural effusion Chronic renal insufficiency Hiatal hernia Secondary pulmonary arterial hypertension Osteoarthritis Depression GERD (gastroesophageal reflux disease) Hypothyroidism Fibromyalgia Deep vein thrombosis (DVT) (04/2012) Atherosclerosis of coronary artery of [place] heart without angina pectoris Essential (primary) hypertension Hyperlipidemia Surgical History (Reviewed 05/25/25 @ 15:08 by Scottie Kim DIESEL POWER SHOVEL OPERATOR, DIESEL POWER SHOVEL OPERATOR-C) History of loop recorder (05/05/19) History of thoracentesis H (more content not included)... Normal [facility] .GFRon 03-19-2025 Estimated Glomerular Filtration Rate 36 ml/min/1.73sqm Normal [facility] Comment on above: Result Comment: Stages of Chronic Kidney Disease (CKD) Stage Description eGFR(ml/min/1.73 sq.m.) CKD 1 Normal kidney function or >=90 normal kindney function with possible kidney damage (ex. Proteinuria) CKD 2 Kidney damage with mild loss 60-89 of kidney function CKD 3a Mild to moderate loss of kidney 45-59 function CKD 3b Moderate to severe loss of 30-44 of kindey function CKD 4 Severe loss of kidney function 15-29 CKD 5 Kidney failure <15 Note: (go live 2024) the eGFR calculation was updated to the 2020 CKD-EPI creatinine equation without a race factor to calculate the eGFR results. Performed By: #### A 1C, CMP, TSHR, GFR #### [address] [address] A1Con 03-19-2025 Glucose [Mass/Vol] 126 mg/dL Normal [facility] Comment on above: Result Comment: Shruthi mated Average Glucose calculated by equation ((28.7xA1C)-46.7) Estimated average glucose (eAG) is a calculated value from Hemoglobin A1C and is operations support representative of the average blood glucose level in the last 2-3 month period. Normal range: less than 114 mg/dL Performed By: #### A 1C, CMP, TSHR, GFR #### [address] [address] HbA1c (Bld) [Mass fraction] 6.0 % Normal 4.3-6.4 [facility] Comment on above: Performed By: #### A 1C, CMP, TSHR, GFR #### [address] [address] CMPon 03-19-2025 Albumin Level 3.6 G/dL Normal 3.4-4.8 [facility] Comment on above: Performed By: #### A 1C, CMP, TSHR, GFR #### [address] [address] Albumin/Globulin [Mass ratio] 1.1 {ratio} Normal 1.1-2.5 [facility] Comment on above: Performed By: #### A 1C, CMP, TSHR, GFR #### [address] [address] ALP [Catalytic activity/Vol] 60 U/L Normal 40-135 [facility] Comment on above: Performed By: #### A 1C, CMP, TSHR, GFR #### [address] [address] ALT [Catalytic activity/Vol] 11 U/L Low 14-59 [facility] Comment on above: Performed By: #### A 1C, CMP, TSHR, GFR #### [address] [address] AST [Catalytic activity/Vol] 11 U/L Normal 10-40 [facility] Comment on above: Performed By: #### A 1C, CMP, TSHR, GFR #### [address] [address] Bili Total 0.3 mg/dL Normal 0.2-1.0 [facility] Comment on above: Result Comment: Use of this assay is not recommended for patients undergoing treatment with eltrombopag due to the potential for falsely elevated results. Performed By: #### A 1C, CMP, TSHR, GFR #### [place] [address] BUN/Creatinine Ratio 17 ratio Normal 7-27 [facility] Comment on above: Performed By: #### A 1C, CMP, TSHR, GFR #### [address] [address] Calcium [Mass/Vol] 9.3 mg/dL Normal 8.4-10.2 [facility] Comment on above: Performed By: #### A 1C, CMP, TSHR, GFR #### [address] [address] Chloride [Moles/Vol] 103 mmol/L Normal 98-107 [facility] Comment on above: Performed By: #### A 1C, CMP, TSHR, GFR #### [address] [address] CO2 [Moles/Vol] 29 mmol/L Normal 23-31 [facility] Comment on above: Performed By: #### A 1C, CMP, TSHR, GFR #### [address] [address] Creatinine [Mass/Vol] 1.40 mg/dL High 0.51-0.95 [facility] Comment on above: Performed By: #### A 1C, CMP, TSHR, GFR #### [address] [address] Electrolyte Balance 7.0 mEq/L Normal 4.0-15.0 [facility] Comment on above: Performed By: #### A 1C, CMP, TSHR, GFR #### [address] [address] Globulin 3.3 G/dL Normal 2.7-4.4 [facility] Comment on above: Performed By: #### A 1C, CMP, TSHR, GFR #### [address] [address] Glucose [Mass/Vol] 88 mg/dL Normal 83-110 [facility] Comment on above: Performed By: #### A 1C, CMP, TSHR, GFR #### [address] [address] Potassium [Moles/Vol] 4.5 mmol/L Normal 3.5-5.1 [facility] Comment on above: Performed By: #### A 1C, CMP, TSHR, GFR #### [address] [address] Sodium [Moles/Vol] 139 mmol/L Normal 136-145 [facility] Comment on above: Performed By: #### A 1C, CMP, TSHR, GFR #### [address] [address] Total Protein 6.9 G/dL Normal 6.4-8.2 [facility] Comment on above: Performed By: #### A 1C, CMP, TSHR, GFR #### [address] [address] Urea nitrogen [Mass/Vol] 24 mg/dL High 7-18 [facility] Comment on above: Performed By: #### A 1C, CMP, TSHR, GFR #### [address] [address] LABORATORYOrdered By: SYSTEM SYSTEM on 03-19-2025 Albumin BCP dye [Mass/Vol] 3.6 G/dL Normal 3.4 - 4.8 G/dL AO ADM SS Albumin/Globulin [Mass ratio] 1.1 {ratio} Normal 1.1 - 2.5 ratio AO ADM SS ALP [Catalytic activity/Vol] 60 U/L Normal 40 - 135 U/L AO ADM SS ALT With P-5'-P [Catalytic activity/Vol] 11 U/L Low 14 - 59 U/L AO ADM SS AST With P-5'-P [Catalytic activity/Vol] 11 U/L Normal 10 - 40 U/L AO ADM SS Bilirubin [Mass/Vol] 0.3 mg/dL Normal 0.2 - 1 .0 mg/dL AO ADM SS Comment on above: Interpretive Data: U se of this assay is not recommended for patients undergoing treatment with eltrombopag due to the potential for falsely elevated results. Calcium [Mass/Vol] 9.3 mg/dL Normal 8.4 - 10. 2 mg/dL AO ADM SS Chloride [Moles/Vol] 103 mmol/L Normal 98 - 10 7 mmol/L AO ADM SS CO2 [Moles/Vol] 29 mmol/L Normal 23 - 31 mmol/L AO ADM SS Creatinine [Mass/Vol] 1.40 mg/dL High 0.51 - 0.95 mg/dL AO ADM SS Electrolyte Balance 7.0 mEq/L Normal 4.0 - 15 .0 mEq/L AO ADM SS Estimated Glomerular Filtration Rate 36 ml/min/1.73sqm Invalid Interpretation Code AO Chemistry S Comment on above: Interpretive Data: Stages of Chronic Kidney Disease (CKD) Stage Description eGFR(ml/min/1.73 sq.m.) CKD 1 Normal kidney function or >=90 normal kindney function with possible kidney damage (ex. Proteinuria) CKD 2 Kidney damage with mild loss 60-89 of kidney function CKD 3a Mild to moderate loss of kidney 45-59 function CKD 3b Moderate to severe loss of 30-44 of kindey function CKD 4 Severe loss of kidney function 15-29 CKD 5 Kidney failure <15 Note: (go live 2024) the eGFR calculation was updated to the 2020 CKD-EPI creatinine equation without a race factor to calculate the eGFR results. Globulin 3.3 G/dL Normal 2.7 - 4.4 G/dL AO ADM SS Glucose [Mass/Vol] 88 mg/dL Normal 83 - 110 mg/dL AO ADM SS Glucose [Mass/Vol] 126 mg/dL Invalid Interpretation Code AO Chemistry S Comment on above: Interpretive Data: E stimated average glucose (eAG) is a calculated value from Hemoglobin A1C and is operations support representative of the average blood glucose level in the last 2-3 month period. Normal range: less than 114 mg/dL HbA1c (Bld) [Mass fraction] 6.0 % Normal 4.3 - 6.4 % AO ADM SS Potassium [Moles/Vol] 4.5 mmol/L Normal 3.5 - 5.1 mmol/L AO ADM SS Protein [Mass/Vol] 6.9 G/dL Normal 6.4 - 8.2 G/dL AO ADM SS Sodium [Moles/Vol] 139 mmol/L Normal 136 - 145 mmol/L AO ADM SS TSH Qn 0.62 m[IU]/L Normal 0.36 - 3.74 mcIU/mL AO ADM SS Urea nitrogen [Mass/Vol] 24 mg/dL High 7 - 18 mg/dL AO ADM SS Urea nitrogen/Creatinine [Mass ratio] 17 ratio Normal 7 - 27 ratio AO ADM SS TSHRon 03-19-2025 TSH Qn 0.62 m[IU]/L Normal 0.36-3.74 [facility] Comment on above: Performed By: #### A 1C, CMP, TSHR, GFR #### [facility] [address] [place] [id number] Basic Metabolic Profile (BMP )on 12-06-2024 BUN Normal 4-19 [facility] Comment on above: Result Comment: Canc elled via OM: Order cancelled - Patient discharged Performed By: #### L 500.2500, L100.0100 #### [facility] [address] [place], [address] BUN/CRE Normal 10-20 [facility] Comment on above: Result Comment: Canc elled via OM: Order cancelled - Patient discharged Performed By: #### L 500.2500, L100.0100 #### [facility] [address] [place], [address] Calcium Normal 7.6-11.0 [facility] Comment on above: Result Comment: Canc elled via OM: Order cancelled - Patient discharged Performed By: #### L 500.2500, L100.0100 #### [facility] [address] [place], [address] CL Normal 98-108 [facility] Comment on above: Result Comment: Canc elled via OM: Order cancelled - Patient discharged Performed By: #### L 500.2500, L100.0100 #### [facility] [address] [place], [address] CO2 Normal 21.0-32.0 [facility] Comment on above: Result Comment: Canc elled via OM: Order cancelled - Patient discharged Performed By: #### L 500.2500, L100.0100 #### [facility] [address] [place], [address] CREAT,SERUM Normal 0.70-1.20 [facility] Comment on above: Result Comment: Canc elled via OM: Order cancelled - Patient discharged Performed By: #### L 500.2500, L100.0100 #### [facility] [address] [place], [address] eGFR Normal >60 [facility] Comment on above: Result Comment: Canc elled via OM: Order cancelled - Patient discharged Performed By: #### L 500.2500, L100.0100 #### [facility] [address] [place], [address] GAP Normal 5-15 [facility] Comment on above: Result Comment: Canc elled via OM: Order cancelled - Patient discharged Performed By: #### L 500.2500, L100.0100 #### [facility] [address] [place], [address] GLU Normal 70-99 [facility] Comment on above: Result Comment: Canc elled via OM: Order cancelled - Patient discharged Performed By: #### L 500.2500, L100.0100 #### [facility] [address] [place], [address] Potassium Normal 3.3-5.1 [facility] Comment on above: Result Comment: Canc elled via OM: Order cancelled - Patient discharged Performed By: #### L 500.2500, L100.0100 #### [facility] [address] [place], [address] Basic Metabolic Profile (BMP) Normal 133-145 [facility] Comment on above: Result Comment: Canc elled via OM: Order cancelled - Patient discharged Performed By: #### L 500.2500, L100.0100 #### [facility] [address] [place], [address] CBC W/Diff, Automatedon 04-2 Absolute Neut Normal 2.0-7.7 [facility] Comment on above: Result Comment: Canc elled via OM: Order cancelled - Patient discharged Performed By: #### L 500.2500, L100.0100 #### [facility] [address] [place], [address] HCT Normal 37-47 [facility] Comment on above: Result Comment: Canc elled via OM: Order cancelled - Patient discharged Performed By: #### L 500.2500, L100.0100 #### [facility] [address] [place], [address] HGB Normal 12.0-15.0 [facility] Comment on above: Result Comment: Canc elled via OM: Order cancelled - Patient discharged Performed By: #### L 500.2500, L100.0100 #### [facility] [address] [place], [address] MCH Normal 27.0-32.0 [facility] Comment on above: Result Comment: Canc elled via OM: Order cancelled - Patient discharged Performed By: #### L 500.2500, L100.0100 #### [facility] [address] [place], [address] MCHC Normal 32-36 [facility] Comment on above: Result Comment: Canc elled via OM: Order cancelled - Patient discharged Performed By: #### L 500.2500, L100.0100 #### [facility] [address] [place], [address] MCV Normal 81-99 [facility] Comment on above: Result Comment: Canc elled via OM: Order cancelled - Patient discharged Performed By: #### L 500.2500, L100.0100 #### [facility] [address] [place], [address] NEUT% Normal 47-70 [facility] Comment on above: Result Comment: Canc elled via OM: Order cancelled - Patient discharged Performed By: #### L 500.2500, L100.0100 #### [facility] [address] [place], [address] PLT Normal 150-450 [facility] Comment on above: Result Comment: Canc elled via OM: Order cancelled - Patient discharged Performed By: #### L 500.2500, L100.0100 #### [facility] [address] [place], [address] RBC Normal 4.2-5.4 [facility] Comment on above: Result Comment: Canc elled via OM: Order cancelled - Patient discharged Performed By: #### L 500.2500, L100.0100 #### [facility] [address] [place], [address] RDW CV Normal 11.6-14.6 [facility] Comment on above: Result Comment: Canc elled via OM: Order cancelled - Patient discharged Performed By: #### L 500.2500, L100.0100 #### [facility] [address] [place], [address] RDW SD Normal 35.1-43.9 [facility] Comment on above: Result Comment: Canc elled via OM: Order cancelled - Patient discharged Performed By: #### L 500.2500, L100.0100 #### [facility] [address] [place], [address] WBC Normal 4.4-11.0 [facility] Comment on above: Result Comment: Canc elled via OM: Order cancelled - Patient discharged Performed By: #### L 500.2500, L100.0100 #### [facility] [address] [place], [address] Basic Metabolic Profile (BMP )on 12-05-2024 BUN Normal 4-19 [facility] Comment on above: Result Comment: Canc elled via OM: Order cancelled - Patient discharged Performed By: #### L 500.2500, L100.0100 #### [facility] [address] [place], [address] BUN/CRE Normal 10-20 [facility] Comment on above: Result Comment: Canc elled via OM: Order cancelled - Patient discharged Performed By: #### L 500.2500, L100.0100 #### [facility] [address] [place], [address] Calcium Normal 7.6-11.0 [facility] Comment on above: Result Comment: Canc elled via OM: Order cancelled - Patient discharged Performed By: #### L 500.2500, L100.0100 #### [facility] [address] [place], [address] CL Normal 98-108 [facility] Comment on above: Result Comment: Canc elled via OM: Order cancelled - Patient discharged Performed By: #### L 500.2500, L100.0100 #### [facility] [address] [place], [address] CO2 Normal 21.0-32.0 [facility] Comment on above: Result Comment: Canc elled via OM: Order cancelled - Patient discharged Performed By: #### L 500.2500, L100.0100 #### [facility] [address] [place], [address] CREAT,SERUM Normal 0.70-1.20 [facility] Comment on above: Result Comment: Canc elled via OM: Order cancelled - Patient discharged Performed By: #### L 500.2500, L100.0100 #### [facility] [address] [place], [address] eGFR Normal >60 [facility] Comment on above: Result Comment: Canc elled via OM: Order cancelled - Patient discharged Performed By: #### L 500.2500, L100.0100 #### [facility] [address] [place], [address] GAP Normal 5-15 [facility] Comment on above: Result Comment: Canc elled via OM: Order cancelled - Patient discharged Performed By: #### L 500.2500, L100.0100 #### [facility] [address] [place], [address] GLU Normal 70-99 [facility] Comment on above: Result Comment: Canc elled via OM: Order cancelled - Patient discharged Performed By: #### L 500.2500, L100.0100 #### [facility] [address] [place], [address] Potassium Normal 3.3-5.1 [facility] Comment on above: Result Comment: Canc elled via OM: Order cancelled - Patient discharged Performed By: #### L 500.2500, L100.0100 #### [facility] [address] [place], [address] Basic Metabolic Profile (BMP) Normal 133-145 [facility] Comment on above: Result Comment: Canc elled via OM: Order cancelled - Patient discharged Performed By: #### L 500.2500, L100.0100 #### [facility] [address] [place], [address] CBC W/Diff, Automatedon 04-2 Absolute Neut Normal 2.0-7.7 [facility] Comment on above: Result Comment: Canc elled via OM: Order cancelled - Patient discharged Performed By: #### L 500.2500, L100.0100 #### [facility] [address] [place], [address] HCT Normal 37-47 [facility] Comment on above: Result Comment: Canc elled via OM: Order cancelled - Patient discharged Performed By: #### L 500.2500, L100.0100 #### [facility] [address] [place], [address] HGB Normal 12.0-15.0 [facility] Comment on above: Result Comment: Canc elled via OM: Order cancelled - Patient discharged Performed By: #### L 500.2500, L100.0100 #### [facility] [address] [place], [address] MCH Normal 27.0-32.0 [facility] Comment on above: Result Comment: Canc elled via OM: Order cancelled - Patient discharged Performed By: #### L 500.2500, L100.0100 #### [facility] [address] [place], [address] MCHC Normal 32-36 [facility] Comment on above: Result Comment: Canc elled via OM: Order cancelled - Patient discharged Performed By: #### L 500.2500, L100.0100 #### [facility] [address] [place], [address] MCV Normal 81-99 [facility] Comment on above: Result Comment: Canc elled via OM: Order cancelled - Patient discharged Performed By: #### L 500.2500, L100.0100 #### [facility] [address] [place], [address] NEUT% Normal 47-70 [facility] Comment on above: Result Comment: Canc elled via OM: Order cancelled - Patient discharged Performed By: #### L 500.2500, L100.0100 #### [facility] [address] [place], [address] PLT Normal 150-450 [facility] Comment on above: Result Comment: Canc elled via OM: Order cancelled - Patient discharged Performed By: #### L 500.2500, L100.0100 #### [facility] [address] [place], [address] RBC Normal 4.2-5.4 [facility] Comment on above: Result Comment: Canc elled via OM: Order cancelled - Patient discharged Performed By: #### L 500.2500, L100.0100 #### [facility] [address] [place], [address] RDW CV Normal 11.6-14.6 [facility] Comment on above: Result Comment: Canc elled via OM: Order cancelled - Patient discharged Performed By: #### L 500.2500, L100.0100 #### [facility] [address] [place], [address] RDW SD Normal 35.1-43.9 [facility] Comment on above: Result Comment: Canc elled via OM: Order cancelled - Patient discharged Performed By: #### L 500.2500, L100.0100 #### [facility] [address] [place], [address] WBC Normal 4.4-11.0 [facility] Comment on above: Result Comment: Canc elled via OM: Order cancelled - Patient discharged Performed By: #### L 500.2500, L100.0100 #### [facility] [address] [place], [address] Basic Metabolic Profile (BMP )on 12-04-2024 BUN Normal 4-19 [facility] Comment on above: Result Comment: Canc elled via OM: Order cancelled - Patient discharged Performed By: #### L 100.0100, L500.2500 #### [facility] [address] [place], [address] BUN/CRE Normal 10-20 [facility] Comment on above: Result Comment: Canc elled via OM: Order cancelled - Patient discharged Performed By: #### L 100.0100, L500.2500 #### [facility] [address] [place], [address] Calcium Normal 7.6-11.0 [facility] Comment on above: Result Comment: Canc elled via OM: Order cancelled - Patient discharged Performed By: #### L 100.0100, L500.2500 #### [facility] [address] [place], [address] CL Normal 98-108 [facility] Comment on above: Result Comment: Canc elled via OM: Order cancelled - Patient discharged Performed By: #### L 100.0100, L500.2500 #### [facility] [address] [place], [address] CO2 Normal 21.0-32.0 [facility] Comment on above: Result Comment: Canc elled via OM: Order cancelled - Patient discharged Performed By: #### L 100.0100, L500.2500 #### [facility] [address] [place], [address] CREAT,SERUM Normal 0.70-1.20 [facility] Comment on above: Result Comment: Canc elled via OM: Order cancelled - Patient discharged Performed By: #### L 100.0100, L500.2500 #### [facility] [address] [place], [address] eGFR Normal >60 [facility] Comment on above: Result Comment: Canc elled via OM: Order cancelled - Patient discharged Performed By: #### L 100.0100, L500.2500 #### [facility] [address] [place], [address] GAP Normal 5-15 [facility] Comment on above: Result Comment: Canc elled via OM: Order cancelled - Patient discharged Performed By: #### L 100.0100, L500.2500 #### [facility] [address] [place], [address] GLU Normal 70-99 [facility] Comment on above: Result Comment: Canc elled via OM: Order cancelled - Patient discharged Performed By: #### L 100.0100, L500.2500 #### [facility] [address] [place], [address] Potassium Normal 3.3-5.1 [facility] Comment on above: Result Comment: Canc elled via OM: Order cancelled - Patient discharged Performed By: #### L 100.0100, L500.2500 #### [facility] [address] [place], [address] Basic Metabolic Profile (BMP) Normal 133-145 [facility] Comment on above: Result Comment: Canc elled via OM: Order cancelled - Patient discharged Performed By: #### L 100.0100, L500.2500 #### [facility] [address] [place], [address] CBC W/Diff, Automatedon 04-2 Absolute Neut Normal 2.0-7.7 [facility] Comment on above: Result Comment: Canc elled via OM: Order cancelled - Patient discharged Performed By: #### L 100.0100, L500.2500 #### [facility] [address] [place], [address] HCT Normal 37-47 [facility] Comment on above: Result Comment: Canc elled via OM: Order cancelled - Patient discharged Performed By: #### L 100.0100, L500.2500 #### [facility] [address] [place], [address] HGB Normal 12.0-15.0 [facility] Comment on above: Result Comment: Canc elled via OM: Order cancelled - Patient discharged Performed By: #### L 100.0100, L500.2500 #### [facility] [address] [place], [address] MCH Normal 27.0-32.0 [facility] Comment on above: Result Comment: Canc elled via OM: Order cancelled - Patient discharged Performed By: #### L 100.0100, L500.2500 #### [facility] [address] [place], [address] MCHC Normal 32-36 [facility] Comment on above: Result Comment: Canc elled via OM: Order cancelled - Patient discharged Performed By: #### L 100.0100, L500.2500 #### [facility] [address] [place], [address] MCV Normal 81-99 [facility] Comment on above: Result Comment: Canc elled via OM: Order cancelled - Patient discharged Performed By: #### L 100.0100, L500.2500 #### [facility] [address] [place], [address] NEUT% Normal 47-70 [facility] Comment on above: Result Comment: Canc elled via OM: Order cancelled - Patient discharged Performed By: #### L 100.0100, L500.2500 #### [facility] [address] [place], [address] PLT Normal 150-450 [facility] Comment on above: Result Comment: Canc elled via OM: Order cancelled - Patient discharged Performed By: #### L 100.0100, L500.2500 #### [facility] [address] [place], [address] RBC Normal 4.2-5.4 [facility] Comment on above: Result Comment: Canc elled via OM: Order cancelled - Patient discharged Performed By: #### L 100.0100, L500.2500 #### [facility] [address] [place], [address] RDW CV Normal 11.6-14.6 [facility] Comment on above: Result Comment: Canc elled via OM: Order cancelled - Patient discharged Performed By: #### L 100.0100, L500.2500 #### [facility] [address] [place], [address] RDW SD Normal 35.1-43.9 [facility] Comment on above: Result Comment: Canc elled via OM: Order cancelled - Patient discharged Performed By: #### L 100.0100, L500.2500 #### [facility] [address] [place], [address] WBC Normal 4.4-11.0 [facility] Comment on above: Result Comment: Canc elled via OM: Order cancelled - Patient discharged Performed By: #### L 100.0100, L500.2500 #### [facility] [address] [place], [address] Basic Metabolic Profile (BMP )on 12-03-2024 BUN Normal 4-19 [facility] Comment on above: Result Comment: Canc elled via OM: Order cancelled - Patient discharged Performed By: #### L 500.2500, L100.0100 #### [facility] [address] [place], [address] BUN/CRE Normal 10-20 [facility] Comment on above: Result Comment: Canc elled via OM: Order cancelled - Patient discharged Performed By: #### L 500.2500, L100.0100 #### [facility] [address] [place], [address] Calcium Normal 7.6-11.0 [facility] Comment on above: Result Comment: Canc elled via OM: Order cancelled - Patient discharged Performed By: #### L 500.2500, L100.0100 #### [facility] [address] [place], [address] CL Normal 98-108 [facility] Comment on above: Result Comment: Canc elled via OM: Order cancelled - Patient discharged Performed By: #### L 500.2500, L100.0100 #### [facility] [address] [place], [address] CO2 Normal 21.0-32.0 [facility] Comment on above: Result Comment: Canc elled via OM: Order cancelled - Patient discharged Performed By: #### L 500.2500, L100.0100 #### [facility] [address] [place], [address] CREAT,SERUM Normal 0.70-1.20 [facility] Comment on above: Result Comment: Canc elled via OM: Order cancelled - Patient discharged Performed By: #### L 500.2500, L100.0100 #### [facility] [address] [place], [address] eGFR Normal >60 [facility] Comment on above: Result Comment: Canc elled via OM: Order cancelled - Patient discharged Performed By: #### L 500.2500, L100.0100 #### [facility] [address] [place], [address] GAP Normal 5-15 [facility] Comment on above: Result Comment: Canc elled via OM: Order cancelled - Patient discharged Performed By: #### L 500.2500, L100.0100 #### [facility] [address] [place], [address] GLU Normal 70-99 [facility] Comment on above: Result Comment: Canc elled via OM: Order cancelled - Patient discharged Performed By: #### L 500.2500, L100.0100 #### [facility] [address] [place], [address] Potassium Normal 3.3-5.1 [facility] Comment on above: Result Comment: Canc elled via OM: Order cancelled - Patient discharged Performed By: #### L 500.2500, L100.0100 #### [facility] [address] [place], [address] Basic Metabolic Profile (BMP) Normal 133-145 [facility] Comment on above: Result Comment: Canc elled via OM: Order cancelled - Patient discharged Performed By: #### L 500.2500, L100.0100 #### [facility] [address] [place], [address] CBC W/Diff, Automatedon 04-2 Absolute Neut Normal 2.0-7.7 [facility] Comment on above: Result Comment: Canc elled via OM: Order cancelled - Patient discharged Performed By: #### L 500.2500, L100.0100 #### [facility] [address] [place], [address] HCT Normal 37-47 [facility] Comment on above: Result Comment: Canc elled via OM: Order cancelled - Patient discharged Performed By: #### L 500.2500, L100.0100 #### [facility] [address] [place], [address] HGB Normal 12.0-15.0 [facility] Comment on above: Result Comment: Canc elled via OM: Order cancelled - Patient discharged Performed By: #### L 500.2500, L100.0100 #### [facility] [address] [place], [address] MCH Normal 27.0-32.0 [facility] Comment on above: Result Comment: Canc elled via OM: Order cancelled - Patient discharged Performed By: #### L 500.2500, L100.0100 #### [facility] [address] [place], [address] MCHC Normal 32-36 [facility] Comment on above: Result Comment: Canc elled via OM: Order cancelled - Patient discharged Performed By: #### L 500.2500, L100.0100 #### [facility] [address] [place], [address] MCV Normal 81-99 [facility] Comment on above: Result Comment: Canc elled via OM: Order cancelled - Patient discharged Performed By: #### L 500.2500, L100.0100 #### [facility] [address] [place], [address] NEUT% Normal 47-70 [facility] Comment on above: Result Comment: Canc elled via OM: Order cancelled - Patient discharged Performed By: #### L 500.2500, L100.0100 #### [facility] [address] [place], [address] PLT Normal 150-450 [facility] Comment on above: Result Comment: Canc elled via OM: Order cancelled - Patient discharged Performed By: #### L 500.2500, L100.0100 #### [facility] [address] [place], [address] RBC Normal 4.2-5.4 [facility] Comment on above: Result Comment: Canc elled via OM: Order cancelled - Patient discharged Performed By: #### L 500.2500, L100.0100 #### [facility] [address] [place], [address] RDW CV Normal 11.6-14.6 [facility] Comment on above: Result Comment: Canc elled via OM: Order cancelled - Patient discharged Performed By: #### L 500.2500, L100.0100 #### [facility] [address] [place], [address] RDW SD Normal 35.1-43.9 [facility] Comment on above: Result Comment: Canc elled via OM: Order cancelled - Patient discharged Performed By: #### L 500.2500, L100.0100 #### [facility] [address] [place], [address] WBC Normal 4.4-11.0 [facility] Comment on above: Result Comment: Canc elled via OM: Order cancelled - Patient discharged Performed By: #### L 500.2500, L100.0100 #### [facility] [address] [place], [address] Basic Metabolic Profile (BMP )on 12-02-2024 BUN Normal 4-19 [facility] Comment on above: Result Comment: Canc elled via OM: Order cancelled - Patient discharged Performed By: #### L 500.2500, L100.0100 ####[facility] [address] [place], [address] BUN/CRE Normal 10-20 [facility] Comment on above: Result Comment: Canc elled via OM: Order cancelled - Patient discharged Performed By: #### L 500.2500, L100.0100 ####[facility] [address] [place], [address] Calcium Normal 7.6-11.0 [facility] Comment on above: Result Comment: Canc elled via OM: Order cancelled - Patient discharged Performed By: #### L 500.2500, L100.0100 ####[facility] [address] [place], [address] CL Normal 98-108 [facility] Comment on above: Result Comment: Canc elled via OM: Order cancelled - Patient discharged Performed By: #### L 500.2500, L100.0100 ####[facility] [address] [place], [address] CO2 Normal 21.0-32.0 [facility] Comment on above: Result Comment: Canc elled via OM: Order cancelled - Patient discharged Performed By: #### L 500.2500, L100.0100 ####[facility] [address] [place], [address] CREAT,SERUM Normal 0.70-1.20 [facility] Comment on above: Result Comment: Canc elled via OM: Order cancelled - Patient discharged Performed By: #### L 500.2500, L100.0100 ####[facility] [address] [place], [address] eGFR Normal >60 [facility] Comment on above: Result Comment: Canc elled via OM: Order cancelled - Patient discharged Performed By: #### L 500.2500, L100.0100 ####[facility] [address] [place], [address] GAP Normal 5-15 [facility] Comment on above: Result Comment: Canc elled via OM: Order cancelled - Patient discharged Performed By: #### L 500.2500, L100.0100 ####[facility] [address] [place], [address] GLU Normal 70-99 [facility] Comment on above: Result Comment: Canc elled via OM: Order cancelled - Patient discharged Performed By: #### L 500.2500, L100.0100 ####[facility] [address] [place], [address] Potassium Normal 3.3-5.1 [facility] Comment on above: Result Comment: Canc elled via OM: Order cancelled - Patient discharged Performed By: #### L 500.2500, L100.0100 ####[facility] [address] [place], [address] Basic Metabolic Profile (BMP) Normal 133-145 [facility] Comment on above: Result Comment: Canc elled via OM: Order cancelled - Patient discharged Performed By: #### L 500.2500, L100.0100 ####[facility] [address] [place], [address] CBC W/Diff, Automatedon 04- Absolute Neut Normal 2.0-7.7 [facility] Comment on above: Result Comment: Canc elled via OM: Order cancelled - Patient discharged Performed By: #### L 500.2500, L100.0100 ####[facility] [address] [place], [address] HCT Normal 37-47 [facility] Comment on above: Result Comment: Canc elled via OM: Order cancelled - Patient discharged Performed By: #### L 500.2500, L100.0100 ####[facility] [address] [place], [address] HGB Normal 12.0-15.0 [facility] Comment on above: Result Comment: Canc elled via OM: Order cancelled - Patient discharged Performed By: #### L 500.2500, L100.0100 ####[facility] [address] [place], [address] MCH Normal 27.0-32.0 [facility] Comment on above: Result Comment: Canc elled via OM: Order cancelled - Patient discharged Performed By: #### L 500.2500, L100.0100 ####[facility] [address] [place], [address] MCHC Normal 32-36 [facility] Comment on above: Result Comment: Canc elled via OM: Order cancelled - Patient discharged Performed By: #### L 500.2500, L100.0100 ####[facility] [address] [place], [address] MCV Normal 81-99 [facility] Comment on above: Result Comment: Canc elled via OM: Order cancelled - Patient discharged Performed By: #### L 500.2500, L100.0100 ####[facility] [address] [place], [address] NEUT% Normal 47-70 [facility] Comment on above: Result Comment: Canc elled via OM: Order cancelled - Patient discharged Performed By: #### L 500.2500, L100.0100 ####[facility] [address] [place], [address] PLT Normal 150-450 [facility] Comment on above: Result Comment: Canc elled via OM: Order cancelled - Patient discharged Performed By: #### L 500.2500, L100.0100 ####[facility] [address] [place], [address] RBC Normal 4.2-5.4 [facility] Comment on above: Result Comment: Canc elled via OM: Order cancelled - Patient discharged Performed By: #### L 500.2500, L100.0100 ####[facility] [address] [place], [address] RDW CV Normal 11.6-14.6 [facility] Comment on above: Result Comment: Canc elled via OM: Order cancelled - Patient discharged Performed By: #### L 500.2500, L100.0100 ####[facility] [address] [place], [address] RDW SD Normal 35.1-43.9 [facility] Comment on above: Result Comment: Canc elled via OM: Order cancelled - Patient discharged Performed By: #### L 500.2500, L100.0100 ####[facility] [address] [place], [address] WBC Normal 4.4-11.0 [facility] Comment on above: Result Comment: Canc elled via OM: Order cancelled - Patient discharged Performed By: #### L 500.2500, L100.0100 ####[facility] [address] [place], [address] Anion gap in Serum or Plasma Ordered By: Jamir Eagle on 12-01-2024 Anion gap [Moles/Vol] 9 mmol/L - [facility] BUN/creatinine ratioOrdered By: Jamir Eagle on 12-01-2024 Urea nitrogen/Creatinine [Mass ratio] 13.8 mg/mg - [facility] Basic Metabolic Profile (BMP )on 12-01-2024 BUN/CRE 13.8 RATIO Normal - [facility] Comment on above: Order Comment: 202.2 Performed By: #### L 100.0100, L500.2500 #### [facility] [address] [place], [address] Calcium [Mass/Vol] 9.0 mg/dL Normal 7.6-11.0 [facility] Comment on above: Order Comment: 202.2 Performed By: #### L 100.0100, L500.2500 #### [facility] [address] [place], [address] Chloride [Moles/Vol] 106 mmol/L Normal 98-108 [facility] Comment on above: Order Comment: 202.2 Performed By: #### L 100.0100, L500.2500 #### [facility] [address] [place], [address] CO2 [Moles/Vol] 25.9 mmol/L Normal 21.0-32.0 [facility] Comment on above: Order Comment: 202.2 Performed By: #### L 100.0100, L500.2500 #### [facility] [address] [place], [address] Creatinine [Mass/Vol] 1.15 mg/dL Normal 0.70-1.20 [facility] Comment on above: Order Comment: 202.2 Performed By: #### L 100.0100, L500.2500 #### [facility] [address] [place], [address] GAP 9 Normal 5-15 [facility] Comment on above: Order Comment: 202.2 Performed By: #### L 100.0100, L500.2500 #### [facility] [address] [place], [address] GFR/1.73 sq M.predicted among non-blacks MDRD (S/P/Bld) [Vol rate/Area] 46 mL/min/{1.73_m2} Low >60 [facility] Comment on above: Order Comment: 202.2 Result Comment: mL/m in/1.73m2 CKD-EPI Creatinine Equation (2020) Performed By: #### L 100.0100, L500.2500 #### [facility] [address] [place], [address] Glucose [Mass/Vol] 91 mg/dL Normal 70-99 [facility] Comment on above: Order Comment: 202.2 Performed By: #### L 100.0100, L500.2500 #### [facility] [address] [place], [address] Potassium [Moles/Vol] 4.0 mmol/L Normal 3.3-5.1 [facility] Comment on above: Order Comment: 202.2 Performed By: #### L 100.0100, L500.2500 #### [facility] [address] [place], [address] Sodium [Moles/Vol] 141 mmol/L Normal 133-145 [facility] Comment on above: Order Comment: 202.2 Performed By: #### L 100.0100, L500.2500 #### [facility] [address] [place], [address] Urea nitrogen [Mass/Vol] 16 mg/dL Normal 4-19 [facility] Comment on above: Order Comment: 202.2 Performed By: #### L 100.0100, L500.2500 #### [facility] [address] [place], [address] BUN Normal 4-19 [facility] Comment on above: Result Comment: Canc elled via OM: Order cancelled - Patient discharged Performed By: #### L 500.2500, L100.0100 #### [facility] [address] [place], [address] BUN/CRE Normal 10-20 [facility] Comment on above: Result Comment: Canc elled via OM: Order cancelled - Patient discharged Performed By: #### L 500.2500, L100.0100 #### [facility] [address] [place], [address] Calcium Normal 7.6-11.0 [facility] Comment on above: Result Comment: Canc elled via OM: Order cancelled - Patient discharged Performed By: #### L 500.2500, L100.0100 #### [facility] [address] [place], [address] CL Normal 98-108 [facility] Comment on above: Result Comment: Canc elled via OM: Order cancelled - Patient discharged Performed By: #### L 500.2500, L100.0100 #### [facility] [address] [place], [address] CO2 Normal 21.0-32.0 [facility] Comment on above: Result Comment: Canc elled via OM: Order cancelled - Patient discharged Performed By: #### L 500.2500, L100.0100 #### [facility] [address] [place], [address] CREAT,SERUM Normal 0.70-1.20 [facility] Comment on above: Result Comment: Canc elled via OM: Order cancelled - Patient discharged Performed By: #### L 500.2500, L100.0100 #### [facility] [address] [place], [address] eGFR Normal >60 [facility] Comment on above: Result Comment: Canc elled via OM: Order cancelled - Patient discharged Performed By: #### L 500.2500, L100.0100 #### [facility] [address] [place], [address] GAP Normal 5-15 [facility] Comment on above: Result Comment: Canc elled via OM: Order cancelled - Patient discharged Performed By: #### L 500.2500, L100.0100 #### [facility] [address] [place], [address] GLU Normal 70-99 [facility] Comment on above: Result Comment: Canc elled via OM: Order cancelled - Patient discharged Performed By: #### L 500.2500, L100.0100 #### [facility] [address] [place], [address] Potassium Normal 3.3-5.1 [facility] Comment on above: Result Comment: Canc elled via OM: Order cancelled - Patient discharged Performed By: #### L 500.2500, L100.0100 #### [facility] [address] [place], [address] Basic Metabolic Profile (BMP) Normal 133-145 [facility] Comment on above: Result Comment: Canc elled via OM: Order cancelled - Patient discharged Performed By: #### L 500.2500, L100.0100 #### [facility] [address] [place], [address] CBC W/Diff, Automatedon 04-2 Absolute Neut Normal 2.0-7.7 [facility] Comment on above: Result Comment: Canc elled via OM: Order cancelled - Patient discharged Performed By: #### L 500.2500, L100.0100 #### [facility] [address] [place], [address] HCT Normal 37-47 [facility] Comment on above: Result Comment: Canc elled via OM: Order cancelled - Patient discharged Performed By: #### L 500.2500, L100.0100 #### [facility] [address] [place], [address] HGB Normal 12.0-15.0 [facility] Comment on above: Result Comment: Canc elled via OM: Order cancelled - Patient discharged Performed By: #### L 500.2500, L100.0100 #### [facility] [address] [place], [address] MCH Normal 27.0-32.0 [facility] Comment on above: Result Comment: Canc elled via OM: Order cancelled - Patient discharged Performed By: #### L 500.2500, L100.0100 #### [facility] [address] [place], [address] MCHC Normal 32-36 [facility] Comment on above: Result Comment: Canc elled via OM: Order cancelled - Patient discharged Performed By: #### L 500.2500, L100.0100 #### [facility] [address] [place], [address] MCV Normal 81-99 [facility] Comment on above: Result Comment: Canc elled via OM: Order cancelled - Patient discharged Performed By: #### L 500.2500, L100.0100 #### [facility] [address] [place], [address] NEUT% Normal 47-70 [facility] Comment on above: Result Comment: Canc elled via OM: Order cancelled - Patient discharged Performed By: #### L 500.2500, L100.0100 #### [facility] [address] [place], [address] PLT Normal 150-450 [facility] Comment on above: Result Comment: Canc elled via OM: Order cancelled - Patient discharged Performed By: #### L 500.2500, L100.0100 #### [facility] [address] [place], [address] RBC Normal 4.2-5.4 [facility] Comment on above: Result Comment: Canc elled via OM: Order cancelled - Patient discharged Performed By: #### L 500.2500, L100.0100 #### [facility] [address] [place], [address] RDW CV Normal 11.6-14.6 [facility] Comment on above: Result Comment: Canc elled via OM: Order cancelled - Patient discharged Performed By: #### L 500.2500, L100.0100 #### [facility] [address] [place], [address] RDW SD Normal 35.1-43.9 [facility] Comment on above: Result Comment: Canc elled via OM: Order cancelled - Patient discharged Performed By: #### L 500.2500, L100.0100 #### [facility] [address] [place], [address] WBC Normal 4.4-11.0 [facility] Comment on above: Result Comment: Canc elled via OM: Order cancelled - Patient discharged Performed By: #### L 500.2500, L100.0100 #### [facility] [address] [place], [address] CBC-Complete Blood Cnt No Di ffon 12-01-2024 Erythrocyte distribution width (RBC) [Ratio] 12.8 % Normal 11.6-14.6 [facility] Comment on above: Order Comment: 202.2 Performed By: #### L 100.0100, L500.2500 #### [facility] [address] [place], [address] Hematocrit (Bld) [Volume fraction] 31.7 % Low 37-47 [facility] Comment on above: Order Comment: 202.2 Performed By: #### L 100.0100, L500.2500 #### [facility] [address] [place], [address] Hemoglobin (Bld) [Mass/Vol] 10.4 g/dL Low 12.0-15.0 [facility] Comment on above: Order Comment: 202.2 Performed By: #### L 100.0100, L500.2500 #### [facility] [address] [place], [address] MCH (RBC) [Entitic mass] 30.1 pg Normal 27.0-32.0 [facility] Comment on above: Order Comment: 202.2 Performed By: #### L 100.0100, L500.2500 #### [facility] [address] [place], [address] MCHC (RBC) [Mass/Vol] 32.8 g/dL Normal 32-36 [facility] Comment on above: Order Comment: 202.2 Performed By: #### L 100.0100, L500.2500 #### [facility] [address] [place], [address] MCV (RBC) [Entitic vol] 91.6 fL Normal 81-99 [facility] Comment on above: Order Comment: 202.2 Performed By: #### L 100.0100, L500.2500 #### [facility] [address] [place], [address] Platelet mean volume (Bld) [Entitic vol] 11.5 fL Normal 6.2-12.0 [facility] Comment on above: Order Comment: 202.2 Performed By: #### L 100.0100, L500.2500 #### [facility] [address] [place], [address] Platelets (Bld) [#/Vol] 246 10*3/uL Normal 150-450 [facility] Comment on above: Order Comment: 202.2 Performed By: #### L 100.0100, L500.2500 #### [facility] [address] [place], [address] RBC (Bld) [#/Vol] 3.46 10*6/uL Low 4.2-5.4 [facility] Comment on above: Order Comment: 202.2 Performed By: #### L 100.0100, L500.2500 #### [facility] [address] [place], [address] RDW SD 42.7 fl Normal 35.1-43.9 [facility] Comment on above: Order Comment: 202.2 Performed By: #### L 100.0100, L500.2500 #### [facility] [address] [place], [address] WBC (Bld) [#/Vol] 6.7 10*3/uL Normal 4.4-11.0 [facility] Comment on above: Order Comment: 202.2 Performed By: #### L 100.0100, L500.2500 #### [facility] [address] [place], [address] Carbon dioxide, total [Moles /volume] in Central venous bloodOrdered By: Jamir Eagle on 12-01-2024 CO2 [Moles/Vol] 25.9 mmol/L 21.0-32.0 [facility] Chloride assayOrdered By: Casarez on 12-01-2024 Chloride [Moles/Vol] 106 mmol/L 98-108 [facility] Erythrocyte distribution wid th ratioOrdered By: Jamir Eagle on 12-01-2024 Erythrocyte distribution width (RBC) [Ratio] 12.8 % 11.6-14.6 [facility] Erythrocyte distribution wid th standard deviationOrdered By: Jamir Eagle on 12-01-2024 Erythrocyte distribution width (RBC) [Ratio] 42.7 fl 35.1-43.9 [facility] Glomerular filtration rate ( GFR) estimation/1.73 sq m using serum, plasma, or whole bOrdered By: Jamir Eagle on 12-01-2024 GFR/1.73 sq M.predicted among non-blacks MDRD (S/P/Bld) [Vol rate/Area] 46 mL/min/{1.73_m2} Low >60 [facility] Comment on above: mL/min/1.73m2 CKD-EP I Creatinine Equation (2020) Hematocrit Auto (Bld) [Volum e fraction]Ordered By: Jamir Eagle on 12-01-2024 Hematocrit (Bld) [Volume fraction] 31.7 % Low 37-47 [facility] Hemoglobin measurementOrdere d By: Jamir Eagle on 12-01-2024 Hemoglobin (Bld) [Mass/Vol] 10.4 g/dL Low 12.0-15.0 [facility] MCV (mean corpuscular volume ) determinationOrdered By: Jamir Eagle on 12-01-2024 MCV (RBC) [Entitic vol] 91.6 fL 81-99 [facility] Mean corpuscular hemoglobin (MCH) determinationOrdered By: Jamir Eagle on 12-01-2024 MCH (RBC) [Entitic mass] 30.1 pg 27.0-32.0 [facility] Mean corpuscular hemoglobin concentration (MCHC) determinationOrdered By: Jamir Eagle on 12-01-2024 MCHC (RBC) [Mass/Vol] 32.8 g/dL 32-36 [facility] Mean platelet volume determi nationOrdered By: Jamir Eagle on 12-01-2024 Platelet mean volume (Bld) [Entitic vol] 11.5 fL 6.2-12.0 [facility] Platelet countOrdered By: Casarez on 12-01-2024 Platelets (Bld) [#/Vol] 246 10*3/uL 150-450 [facility] Potassium measurement (mass/ volume)Ordered By: Jamir Eagle on 12-01-2024 Potassium (Unsp spec) [Mass/Vol] 4.0 mmol/L 3.3-5.1 [facility] RBC Auto (Bld) [#/Vol]Ordere d By: Jamir Eagle on 12-01-2024 RBC (Bld) [#/Vol] 3.46 10*6/uL Low 4.2-5.4 [facility] Serum creatinine measurement (mass/volume)Ordered By: Jamir Eagle on 12-01-2024 Creatinine [Mass/Vol] 1.15 mg/dL 0.70-1.20 [facility] Serum glucose measurement (m ass/volume)Ordered By: Jamir Eagle on 12-01-2024 Glucose [Mass/Vol] 91 mg/dL 70-99 [facility] Serum or plasma calcium kailyn urement (mass/volume)Ordered By: Jamir Eagle on 12-01-2024 Calcium [Mass/Vol] 9.0 mg/dL 7.6-11.0 [facility] Serum or plasma urea nitroge n measurement (mass/volume)Ordered By: Jamir Eagle on 12-01-2024 Urea nitrogen [Mass/Vol] 16 mg/dL 4- [facility] Sodium levelOrdered By: Jamir Eagle on 12-01-2024 Sodium [Moles/Vol] 141 mmol/L 133-145 [facility] White blood cell (WBC) count Ordered By: Jamir Eagle on 12-01-2024 WBC (Bld) [#/Vol] 6.7 10*3/uL 4.4-11.0 [facility] Basic Metabolic Profile (BMP )on 11-30-2024 BUN Normal - [facility] Comment on above: Result Comment: Canc elled via OM: Order cancelled - Patient discharged Performed By: #### L 100.0100, L500.2500 #### [facility] [address] [place], [address] BUN/CRE Normal - [facility] Comment on above: Result Comment: Canc elled via OM: Order cancelled - Patient discharged Performed By: #### L 100.0100, L500.2500 #### [facility] [address] [place], [address] Calcium Normal 7.6-11.0 [facility] Comment on above: Result Comment: Canc elled via OM: Order cancelled - Patient discharged Performed By: #### L 100.0100, L500.2500 #### [facility] [address] [place], [address] CL Normal 98-108 [facility] Comment on above: Result Comment: Canc elled via OM: Order cancelled - Patient discharged Performed By: #### L 100.0100, L500.2500 #### [facility] [address] [place], [address] CO2 Normal 21.0-32.0 [facility] Comment on above: Result Comment: Canc elled via OM: Order cancelled - Patient discharged Performed By: #### L 100.0100, L500.2500 #### [facility] [address] [place], [address] CREAT,SERUM Normal 0.70-1.20 [facility] Comment on above: Result Comment: Canc elled via OM: Order cancelled - Patient discharged Performed By: #### L 100.0100, L500.2500 #### [facility] [address] [place], [address] eGFR Normal >60 [facility] Comment on above: Result Comment: Canc elled via OM: Order cancelled - Patient discharged Performed By: #### L 100.0100, L500.2500 #### [facility] [address] [place], [address] GAP Normal 5-15 [facility] Comment on above: Result Comment: Canc elled via OM: Order cancelled - Patient discharged Performed By: #### L 100.0100, L500.2500 #### [facility] [address] [place], [address] GLU Normal 70-99 [facility] Comment on above: Result Comment: Canc elled via OM: Order cancelled - Patient discharged Performed By: #### L 100.0100, L500.2500 #### [facility] [address] [place], [address] Potassium Normal 3.3-5.1 [facility] Comment on above: Result Comment: Canc elled via OM: Order cancelled - Patient discharged Performed By: #### L 100.0100, L500.2500 #### [facility] [address] [place], [address] Basic Metabolic Profile (BMP) Normal 133-145 [facility] Comment on above: Result Comment: Canc elled via OM: Order cancelled - Patient discharged Performed By: #### L 100.0100, L500.2500 #### [facility] [address] [place], [address] CBC W/Diff, Automatedon 04-2 0-2024 Absolute Neut Normal 2.0-7.7 [facility] Comment on above: Result Comment: Canc elled via OM: Order cancelled - Patient discharged Performed By: #### L 100.0100, L500.2500 #### [facility] [address] [place], [address] HCT Normal 37-47 [facility] Comment on above: Result Comment: Canc elled via OM: Order cancelled - Patient discharged Performed By: #### L 100.0100, L500.2500 #### [facility] [address] [place], [address] HGB Normal 12.0-15.0 [facility] Comment on above: Result Comment: Canc elled via OM: Order cancelled - Patient discharged Performed By: #### L 100.0100, L500.2500 #### [facility] [address] [place], [address] MCH Normal 27.0-32.0 [facility] Comment on above: Result Comment: Canc elled via OM: Order cancelled - Patient discharged Performed By: #### L 100.0100, L500.2500 #### [facility] [address] [place], [address] MCHC Normal 32-36 [facility] Comment on above: Result Comment: Canc elled via OM: Order cancelled - Patient discharged Performed By: #### L 100.0100, L500.2500 #### [facility] [address] [place], [address] MCV Normal 81-99 [facility] Comment on above: Result Comment: Canc elled via OM: Order cancelled - Patient discharged Performed By: #### L 100.0100, L500.2500 #### [facility] [address] [place], [address] NEUT% Normal 47-70 [facility] Comment on above: Result Comment: Canc elled via OM: Order cancelled - Patient discharged Performed By: #### L 100.0100, L500.2500 #### [facility] [address] [place], [address] PLT Normal 150-450 [facility] Comment on above: Result Comment: Canc elled via OM: Order cancelled - Patient discharged Performed By: #### L 100.0100, L500.2500 #### [facility] [address] [place], [address] RBC Normal 4.2-5.4 [facility] Comment on above: Result Comment: Canc elled via OM: Order cancelled - Patient discharged Performed By: #### L 100.0100, L500.2500 #### [facility] [address] [place], [address] RDW CV Normal 11.6-14.6 [facility] Comment on above: Result Comment: Canc elled via OM: Order cancelled - Patient discharged Performed By: #### L 100.0100, L500.2500 #### [facility] [address] [place], [address] RDW SD Normal 35.1-43.9 [facility] Comment on above: Result Comment: Canc elled via OM: Order cancelled - Patient discharged Performed By: #### L 100.0100, L500.2500 #### [facility] [address] [place], [address] WBC Normal 4.4-11.0 [facility] Comment on above: Result Comment: Canc elled via OM: Order cancelled - Patient discharged Performed By: #### L 100.0100, L500.2500 #### [facility] [address] [place], [address] Absolute lymphocyte countOrd ered By: Britt Guthrie on 11-29-2024 Lymphocytes Auto (Unsp spec) [#/Vol] 1.35 10*3/uL 0.83-4.51 [facility] Absolute neutrophil countOrd ered By: Britt Guthrie on 11-29-2024 Neutrophils (Bld) [#/Vol] 3.7 10*3/uL 2.0-7.7 [facility] Anion gap in Serum or Plasma Ordered By: Britt Guthrie on 11-29-2024 Anion gap [Moles/Vol] 9 mmol/L 12-25 [facility] Automated lymphocyte count a s percentage of total leukocytesOrdered By: Britt Guthrie on 11-29-2024 Lymphocytes/100 WBC Auto (Unsp spec) 22.2 % [facility] BUN/creatinine ratioOrdered By: Britt Guthrie on 11-29-2024 Urea nitrogen/Creatinine [Mass ratio] 18.4 mg/mg - [facility] Basic Metabolic Profile (BMP )on 11-29-2024 BUN/CRE 18.4 RATIO Normal 06-01 [facility] Comment on above: Performed By: #### L 100.0100, L500.2500 #### [facility] [address] [place], [address] Calcium [Mass/Vol] 8.8 mg/dL Normal 7.6-11.0 [facility] Comment on above: Performed By: #### L 100.0100, L500.2500 #### [facility] [address] [place], [address] Chloride [Moles/Vol] 106 mmol/L Normal 98-108 [facility] Comment on above: Performed By: #### L 100.0100, L500.2500 #### [facility] [address] [place], [address] CO2 [Moles/Vol] 23.3 mmol/L Normal 21.0-32.0 [facility] Comment on above: Performed By: #### L 100.0100, L500.2500 #### [facility] [address] [place], [address] Creatinine [Mass/Vol] 1.25 mg/dL High 0.70-1.20 [facility] Comment on above: Performed By: #### L 100.0100, L500.2500 #### [facility] [address] [place], [address] ECRCL 22.35 ml/min Low 50-250 [facility] Comment on above: Performed By: #### L 100.0100, L500.2500 #### [facility] [address] [place], [address] GAP 9 Normal 5-15 [facility] Comment on above: Performed By: #### L 100.0100, L500.2500 #### [facility] [address] [place], [address] GFR/1.73 sq M.predicted among non-blacks MDRD (S/P/Bld) [Vol rate/Area] 41 mL/min/{1.73_m2} Low >60 [facility] Comment on above: Result Comment: mL/m in/1.73m2 CKD-EPI Creatinine Equation (2020) Performed By: #### L 100.0100, L500.2500 #### [facility] [address] [place], [address] Glucose [Mass/Vol] 89 mg/dL Normal 70-99 [facility] Comment on above: Performed By: #### L 100.0100, L500.2500 #### [facility] [address] [place], [address] Potassium [Moles/Vol] 4.1 mmol/L Normal 3.3-5.1 [facility] Comment on above: Performed By: #### L 100.0100, L500.2500 #### [facility] [address] [place], [address] Sodium [Moles/Vol] 138 mmol/L Normal 133-145 [facility] Comment on above: Performed By: #### L 100.0100, L500.2500 #### [facility] [address] [place], [address] Urea nitrogen [Mass/Vol] 23 mg/dL High - [facility] Comment on above: Performed By: #### L 100.0100, L500.2500 #### [facility] [address] [place], [address] Basophil percentageOrdered B y: Britt Guthrie on 11-29-2024 Basophils/100 WBC (Bld) 0.5 % 0-1 [facility] CBC W/Diff, Automatedon 11-11 Absolute Lymph 1.35 X10 3/uL Normal 0.83-4.51 [facility] Comment on above: Performed By: #### L 100.0100, L500.2500 #### [facility] [address] [place], [address] Absolute Neut 3.7 X10 3/uL Normal 2.0-7.7 [facility] Comment on above: Performed By: #### L 100.0100, L500.2500 #### [facility] [address] [place], [address] Basophils/100 WBC (Bld) 0.5 % Normal 0-1 [facility] Comment on above: Performed By: #### L 100.0100, L500.2500 #### [facility] [address] [place], [address] Eosinophils/100 WBC (Bld) 3.8 % Normal 0-5 [facility] Comment on above: Performed By: #### L 100.0100, L500.2500 #### [facility] [address] [place], [address] Erythrocyte distribution width (RBC) [Ratio] 12.8 % Normal 11.6-14.6 [facility] Comment on above: Performed By: #### L 100.0100, L500.2500 #### [facility] [address] [place], [address] Hematocrit (Bld) [Volume fraction] 30.1 % Low 37-47 [facility] Comment on above: Performed By: #### L 100.0100, L500.2500 #### [facility] [address] [place], [address] Hemoglobin (Bld) [Mass/Vol] 9.9 g/dL Low 12.0-15.0 [facility] Comment on above: Performed By: #### L 100.0100, L500.2500 #### [facility] [address] [place], [address] IG% 0.800 Normal 0.0-0.9 [facility] Comment on above: Result Comment: IG% - Immature Granulocytes (promyelocytes, myelocytes and metamyelocytes) > 1% indicates that a LEFT SHIFT is Present. Performed By: #### L 100.0100, L500.2500 #### [facility] [address] [place], [address] Lymphocytes/100 WBC (Bld) 22.2 % Normal 19-41 [facility] Comment on above: Performed By: #### L 100.0100, L500.2500 #### [facility] [address] [place], [address] MCH (RBC) [Entitic mass] 30.3 pg Normal 27.0-32.0 [facility] Comment on above: Performed By: #### L 100.0100, L500.2500 #### [facility] [address] [place], [address] MCHC (RBC) [Mass/Vol] 32.9 g/dL Normal 32-36 [facility] Comment on above: Performed By: #### L 100.0100, L500.2500 #### [facility] [address] [place], [address] MCV (RBC) [Entitic vol] 92.0 fL Normal 81-99 [facility] Comment on above: Performed By: #### L 100.0100, L500.2500 #### [facility] [address] [place], [address] Monocytes/100 WBC (Bld) 12.2 % High 0-10 [facility] Comment on above: Performed By: #### L 100.0100, L500.2500 #### [facility] [address] [place], [address] Neutrophils/100 WBC (Bld) 60.5 % Normal 47-70 [facility] Comment on above: Performed By: #### L 100.0100, L500.2500 #### [facility] [address] [place], [address] Nucleated RBC (Bld) [#/Vol] 0 10*3/uL Normal 0-5 [facility] Comment on above: Performed By: #### L 100.0100, L500.2500 #### [facility] [address] [place], [address] Platelet mean volume (Bld) [Entitic vol] 11.5 fL Normal 6.2-12.0 [facility] Comment on above: Performed By: #### L 100.0100, L500.2500 #### [facility] [address] [place], [address] Platelets (Bld) [#/Vol] 200 10*3/uL Normal 150-450 [facility] Comment on above: Performed By: #### L 100.0100, L500.2500 #### [facility] [address] [place], [address] RBC (Bld) [#/Vol] 3.27 10*6/uL Low 4.2-5.4 [facility] Comment on above: Performed By: #### L 100.0100, L500.2500 #### [facility] [address] [place], [address] RDW SD 43.4 fl Normal 35.1-43.9 [facility] Comment on above: Performed By: #### L 100.0100, L500.2500 #### [facility] [address] [place], [address] WBC (Bld) [#/Vol] 6.1 10*3/uL Normal 4.4-11.0 [facility] Comment on above: Performed By: #### L 100.0100, L500.2500 #### [facility] [address] [place], [address] Carbon dioxide, total [Moles /volume] in Central venous bloodOrdered By: Britt Guthrie on 11-29-2024 CO2 [Moles/Vol] 23.3 mmol/L 21.0-32.0 [facility] Chloride assayOrdered By: Na na Jerri on 11-29-2024 Chloride [Moles/Vol] 106 mmol/L 98-108 [facility] Eosinophil percentageOrdered By: Britt Guthrie 11-29-2024 Eosinophils/100 WBC (Bld) 3.8 % 0-5 [facility] Erythrocyte distribution wid th (RBC) [Ratio]Ordered By: Britt Guthrie on 11-29-2024 Erythrocyte distribution width (RBC) [Entitic vol] 43.4 fL 35.1-43.9 [facility] Erythrocyte distribution wid th ratioOrdered By: Britt Guthrie 11-29-2024 Erythrocyte distribution width (RBC) [Ratio] 12.8 % 11.6-14.6 [facility] Erythrocyte distribution wid th standard deviationOrdered By: Britt Guthrie 11-29-2024 Erythrocyte distribution width (RBC) [Ratio] 43.4 fl 35.1-43.9 [facility] Estimation of creatinine jovani aranceOrdered By: Britt Guthrie on 11-29-2024 Estimated Creatinine Clearance Calc 22.35 ml/min Low 50-250 [facility] GFR/1.73 sq M.predicted papo g non-blacks MDRD (S/P/Bld) [Vol rate/Area]Ordered By: Britt Guthrie 11-29-2024 Estimated GFR (MDRD) Non-Af Amer 41 Low >60 [facility] Comment on above: mL/min/1.73m2 CKD-EP I Creatinine Equation (2020) Glomerular filtration rate ( GFR) estimation/1.73 sq m using serum, plasma, or whole bOrdered By: Britt Guthrie 11-29-2024 GFR/1.73 sq M.predicted among non-blacks MDRD (S/P/Bld) [Vol rate/Area] 41 mL/min/{1.73_m2} Low >60 [facility] Comment on above: mL/min/1.73m2 CKD-EP I Creatinine Equation (2020) Hematocrit Auto (Bld) [Volum e fraction]Ordered By: Britt Guthrie 11-29-2024 Hematocrit (Bld) [Volume fraction] 30.1 % Low 37-47 [facility] Hemoglobin measurementOrdere d By: Britt Guthrie on 11-29-2024 Hemoglobin (Bld) [Mass/Vol] 9.9 g/dL Low 12.0-15.0 [facility] Immature granulocytes/100 WB C Auto (Bld)Ordered By: Britt Guthrie on 11-29-2024 Immature granulocytes/100 WBC (Bld) 0.800 % 0.0-0.9 [facility] Comment on above: IG% - Immature Granu locytes (promyelocytes, myelocytes and metamyelocytes) > 1% indicates that a LEFT SHIFT is Present. Lymphocytes Auto (Unsp spec) [#/Vol]Ordered By: Britt Guthrie on 11-29-2024 Lymphocytes (Bld) [#/Vol] 1.35 10*3/uL 0.83-4.51 [facility] Lymphocytes/100 WBC Auto (Un sp spec)Ordered By: Britt Guthrie 11-29-2024 Lymphocytes/100 WBC (Bld) 22.2 % 19-41 [facility] MCV (mean corpuscular volume ) determinationOrdered By: Britt Guthrie 11-29-2024 MCV (RBC) [Entitic vol] 92.0 fL 81-99 [facility] Mean corpuscular hemoglobin (MCH) determinationOrdered By: Britt Guthrie 11-29-2024 MCH (RBC) [Entitic mass] 30.3 pg 27.0-32.0 [facility] Mean corpuscular hemoglobin concentration (MCHC) determinationOrdered By: Britt Guthrie on 11-29-2024 MCHC (RBC) [Mass/Vol] 32.9 g/dL 32-36 [facility] Mean platelet volume determi nationOrdered By: Britt Guthrie 11-29-2024 Platelet mean volume (Bld) [Entitic vol] 11.5 fL 6.2-12.0 [facility] Monocyte percentageOrdered B y: Britt Guthrie on 11-29-2024 Monocytes/100 WBC (Bld) 12.2 % High 0-10 [facility] Neutrophil percentageOrdered By: Britt Guthrie on 11-29-2024 Neutrophils/100 WBC (Bld) 60.5 % 47-70 [facility] Nucleated red blood cell per centageOrdered By: Britt Guthrie on 11-29-2024 Nucleated RBC/100 WBC (Bld) [Ratio] 0 % 0-5 [facility] Platelet countOrdered By: Na arlene Guthrie on 11-29-2024 Platelets (Bld) [#/Vol] 200 10*3/uL 150-450 [facility] Potassium (Unsp spec) [Mass/ Vol]Ordered By: Britt Guthrie on 11-29-2024 Potassium [Moles/Vol] 4.1 mmol/L 3.3-5.1 [facility] Potassium measurement (mass/ volume)Ordered By: Britt Guthrie on 11-29-2024 Potassium (Unsp spec) [Mass/Vol] 4.1 mmol/L 3.3-5.1 [facility] RBC Auto (Bld) [#/Vol]Ordere d By: Britt Guthrie on 11-29-2024 RBC (Bld) [#/Vol] 3.27 10*6/uL Low 4.2-5.4 [facility] Serum creatinine measurement (mass/volume)Ordered By: Britt Guthrie on 11-29-2024 Creatinine [Mass/Vol] 1.25 mg/dL High 0.70-1.20 [facility] Serum glucose measurement (m ass/volume)Ordered By: Britt Guthrie on 11-29-2024 Glucose [Mass/Vol] 89 mg/dL 70-99 [facility] Serum or plasma calcium kailyn urement (mass/volume)Ordered By: Britt Guthrie on 11-29-2024 Calcium [Mass/Vol] 8.8 mg/dL 7.6-11.0 [facility] Serum or plasma urea nitroge n measurement (mass/volume)Ordered By: Britt Guthrie on 11-29-2024 Urea nitrogen [Mass/Vol] 23 mg/dL High 4-19 [facility] Sodium levelOrdered By: Britt Guthrie on 11-29-2024 Sodium [Moles/Vol] 138 mmol/L 133-145 [facility] White blood cell (WBC) count Ordered By: Britt Guthrie on 11-29-2024 WBC (Bld) [#/Vol] 6.1 10*3/uL 4.4-11.0 [facility] Basic Metabolic Profile (BMP )on 11-28-2024 BUN/CRE 14.1 RATIO Normal 10-20 [facility] Comment on above: Performed By: #### L 500.2500, L100.0100 #### [facility] [address] [place], [address] Calcium [Mass/Vol] 8.8 mg/dL Normal 7.6-11.0 [facility] Comment on above: Performed By: #### L 500.2500, L100.0100 #### [facility] [address] [place], [address] Chloride [Moles/Vol] 106 mmol/L Normal 98-108 [facility] Comment on above: Performed By: #### L 500.2500, L100.0100 #### [facility] [address] [place], [address] CO2 [Moles/Vol] 20.8 mmol/L Low 21.0-32.0 [facility] Comment on above: Performed By: #### L 500.2500, L100.0100 #### [facility] [address] [place], [address] Creatinine [Mass/Vol] 1.16 mg/dL Normal 0.70-1.20 [facility] Comment on above: Performed By: #### L 500.2500, L100.0100 #### [facility] [address] [place], [address] ECRCL 24.08 ml/min Low 50-250 [facility] Comment on above: Performed By: #### L 500.2500, L100.0100 #### [facility] [address] [place], [address] GAP 11 Normal 5-15 [facility] Comment on above: Performed By: #### L 500.2500, L100.0100 #### [facility] [address] [place], [address] GFR/1.73 sq M.predicted among non-blacks MDRD (S/P/Bld) [Vol rate/Area] 45 mL/min/{1.73_m2} Low >60 [facility] Comment on above: Result Comment: mL/m in/1.73m2 CKD-EPI Creatinine Equation (2020) Performed By: #### L 500.2500, L100.0100 #### [facility] [address] [place], [address] Glucose [Mass/Vol] 96 mg/dL Normal 70-99 [facility] Comment on above: Performed By: #### L 500.2500, L100.0100 #### [facility] [address] [place], [address] Potassium [Moles/Vol] 4.2 mmol/L Normal 3.3-5.1 [facility] Comment on above: Performed By: #### L 500.2500, L100.0100 #### [facility] [address] [place], [address] Sodium [Moles/Vol] 138 mmol/L Normal 133-145 [facility] Comment on above: Performed By: #### L 500.2500, L100.0100 #### [facility] [address] [place], [address] Urea nitrogen [Mass/Vol] 16 mg/dL Normal 4-19 [facility] Comment on above: Performed By: #### L 500.2500, L100.0100 #### [facility] [address] [place], [address] CBC-Complete Blood Cnt No Di ffon 11-28-2024 Erythrocyte distribution width (RBC) [Ratio] 12.7 % Normal 11.6-14.6 [facility] Comment on above: Performed By: #### L 500.2500, L100.0100 #### [facility] [address] [place], [address] Hematocrit (Bld) [Volume fraction] 31.2 % Low 37-47 [facility] Comment on above: Performed By: #### L 500.2500, L100.0100 #### [facility] [address] [place], [address] Hemoglobin (Bld) [Mass/Vol] 10.3 g/dL Low 12.0-15.0 [facility] Comment on above: Performed By: #### L 500.2500, L100.0100 #### [facility] [address] [place], [address] MCH (RBC) [Entitic mass] 30.0 pg Normal 27.0-32.0 [facility] Comment on above: Performed By: #### L 500.2500, L100.0100 #### [facility] [address] [place], [address] MCHC (RBC) [Mass/Vol] 33.0 g/dL Normal 32-36 [facility] Comment on above: Performed By: #### L 500.2500, L100.0100 #### [facility] [address] [place], [address] MCV (RBC) [Entitic vol] 91.0 fL Normal 81-99 [facility] Comment on above: Performed By: #### L 500.2500, L100.0100 #### [facility] [address] [place], [address] Platelet mean volume (Bld) [Entitic vol] 11.6 fL Normal 6.2-12.0 [facility] Comment on above: Performed By: #### L 500.2500, L100.0100 #### [facility] [address] [place], [address] Platelets (Bld) [#/Vol] 225 10*3/uL Normal 150-450 [facility] Comment on above: Performed By: #### L 500.2500, L100.0100 #### [facility] [address] [place], [address] RBC (Bld) [#/Vol] 3.43 10*6/uL Low 4.2-5.4 [facility] Comment on above: Performed By: #### L 500.2500, L100.0100 #### [facility] [address] [place], [address] RDW SD 42.2 fl Normal 35.1-43.9 [facility] Comment on above: Performed By: #### L 500.2500, L100.0100 #### [facility] [address] [place], [address] WBC (Bld) [#/Vol] 8.2 10*3/uL Normal 4.4-11.0 [facility] Comment on above: Performed By: #### L 500.2500, L100.0100 #### [facility] [address] [place], [address] Electrocardiogram reportOrde red By: Jose Earl on 11-28-2024 EKG study [facility] [address] [place] [address] 12 Lead EKG 11/27/241906 MR#: [id number] Acct: [id number] Name: RADHA MAYERS Rep #:[id number] : 1935 89 From: Jose wang MD Attending Dr: Dr. Britt Guthrie MD Status: ADM SUZIE Ordering Dr: Albin Plummer MD Date: [place] [facility] [place] Sex: F C Admitted: 11/27/24 Test Reason : DYSRHYTHMIA Blood Pressure : */* mmHG Vent. Rate : 60 BPM Atrial Rate : 60 BPM P-R Int : 156 ms QRS Dur : 86 ms QT Int : 418 ms P-R-T Axes : 21 -15 42 degrees QTcB Int : 418 ms Normal sinus rhythm Minimal voltage criteria for LVH, may be normal variant ( [place] product ) Borderline ECG Confirmed by Jose Earl ([id number]), publishing editor KAITLIN SMITH ([id number]) on 2:47:15 PM Referred By: Confirmed By: Jose Earl 11/28/241246 Date _ Jose Earl MD CC: Dr. Albin Plummer MD; Dr. Britt Guthrie MD; Dr. Rehan Lucero, [facility] Other 12 Lead EKGon 11-27-2024 12 Lead EKG [facility] [address] [place] [address] 12 Lead EKG 11/27/24 1907 MR#: [id number] Acct: [id number] Name: RADHA MAYERS Rep #: [id number] : 1935 89 From: Jose Earl MD Attending Dr: Dr. Britt Guthrie MD Status: AD [facility] Ordering Dr: Albin Plummer MD Date: 11/27/24 [place] [facility] [place] Sex: F C Admitted: 11/27/24 Test Reason : DYSRHYTHMIA Blood Pressure : */* mmHG Vent. Rate : 60 BPM Atrial Rate : 60 BPM P-R Int : 156 ms QRS Dur : 86 ms QT Int : 418 ms P-R-T Axes : 21 -15 42 degrees QTcB Int : 418 ms Normal sinus rhythm Minimal voltage criteria for LVH, may be normal variant ( [place] product ) Borderline ECG Confirmed by Jose Earl ([id number]), publishing editor KAITLIN SMITH ([id number]) on 11/28/2024 12:47:15 PM Referred By: Confirmed By: Jose Earl 11/28/241246 Date Jose Earl MD CC: Dr. Albin Plummer MD; Dr. Britt Guthrie MD; Dr. Rehan Lucero DO Signed Normal [facility] Absolute neutrophil countOrd ered By: Albin Plummer on 11-27-2024 Neutrophils (Bld) [#/Vol] 3.1 10*3/uL 2.0-7.7 [facility] Anion gap in Serum or Plasma Ordered By: Albin Plummer on 11-27-2024 Anion gap [Moles/Vol] 11 mmol/L 12-25 [facility] BUN/creatinine ratioOrdered By: Albin Plummer on 11-27-2024 Urea nitrogen/Creatinine [Mass ratio] 14.3 mg/mg - [facility] Basic Metabolic Profile (BMP )on 11-27-2024 BUN/CRE 14.3 RATIO Normal - [facility] Comment on above: Performed By: #### L 100.0100, L500.2500 #### [facility] [address] [place], [address] Calcium [Mass/Vol] 9.5 mg/dL Normal 7.6-11.0 [facility] Comment on above: Performed By: #### L 100.0100, L500.2500 #### [facility] [address] [place], [address] Chloride [Moles/Vol] 104 mmol/L Normal 98-108 [facility] Comment on above: Performed By: #### L 100.0100, L500.2500 #### [facility] [address] [place], [address] CO2 [Moles/Vol] 24.0 mmol/L Normal 21.0-32.0 [facility] Comment on above: Performed By: #### L 100.0100, L500.2500 #### [facility] [address] [place], [address] Creatinine [Mass/Vol] 1.19 mg/dL Normal 0.70-1.20 [facility] Comment on above: Performed By: #### L 100.0100, L500.2500 #### [facility] [address] [place], [address] ECRCL 23.47 ml/min Low 50-250 [facility] Comment on above: Performed By: #### L 100.0100, L500.2500 #### [facility] [address] [place], [address] GAP 11 Normal 5-15 [facility] Comment on above: Performed By: #### L 100.0100, L500.2500 #### [facility] [address] [place], [address] GFR/1.73 sq M.predicted among non-blacks MDRD (S/P/Bld) [Vol rate/Area] 44 mL/min/{1.73_m2} Low >60 [facility] Comment on above: Result Comment: mL/m in/1.73m2 CKD-EPI Creatinine Equation (2020) Performed By: #### L 100.0100, L500.2500 #### [facility] [address] [place], [address] Glucose [Mass/Vol] 91 mg/dL Normal 70-99 [facility] Comment on above: Performed By: #### L 100.0100, L500.2500 #### [facility] [address] [place], [address] Potassium [Moles/Vol] 4.4 mmol/L Normal 3.3-5.1 [facility] Comment on above: Result Comment: Hemo lysis present, Results??could be affected. ?? Performed By: #### L 100.0100, L500.2500 #### [facility] [address] [place], [address] Sodium [Moles/Vol] 140 mmol/L Normal 133-145 [facility] Comment on above: Performed By: #### L 100.0100, L500.2500 #### [facility] [address] [place], [address] Urea nitrogen [Mass/Vol] 17 mg/dL Normal - [facility] Comment on above: Performed By: #### L 100.0100, L500.2500 #### [facility] [address] [place], [address] Basophil percentageOrdered B y: Albin Plummer on 11-27-2024 Basophils/100 WBC (Bld) 1.0 % 0-1 [facility] Brain/Head without Contrasto n 11-27-2024 Brain/Head without Contrast [facility] Imaging Services [address] [place] [address] Brain/Head without Contrast MR#: [id number] Acct: [id number] Name: RADHA MAYERS Sakshi Rep #: [id number] : 1935 F 89 From: Tyson Pimentel DO PCP: Dr. Rehan Lucero DO Status: REG ER Study: Brain/Head without Contrast Date of Exam: 11/11 03/06 Exam# [id number] Ordering Dr: Albin Plummer MD PROCEDURE: BRAIN/HEAD WITHOUT CONTRAST 11/27/2024 REASON FOR EXAM: TRAUMA TECHNIQUE: Head CT without intravenous contrast. Coronal and Sagittal reconstruction series were provided. One or more dose reduction techniques were used (e.g., Automated exposure control, adjustment of the mA and/or kV according to patient size, use of iterative reconstruction technique. RADIATION DOSE SUMMARY: CTDlvol: 45 mGy DLP: 829 mGycm COMPARISON: CT of the brain dated 10/06/2024 FINDINGS: Brain: Extensive low density in the deep cerebral white matter most likely represents advanced chronic small vessel ischemic disease. CSF Spaces: Moderate generalized cerebral atrophy Sinuses/Mastoids: Clear at visualized levels Bones: Unremarkable CT/Brain/Head without Contrast IMPRESSION: NO ACUTE INTRACRANIAL HEMORRHAGE Reading Location: [facility] CC: Dr. Albin Plummer MD; Dr. Rehan Lucero DO [place]: Signed Normal [facility] CBC W/Diff, Automatedon 11-11 Absolute Lymph 1.23 X10 3/uL Normal 0.83-4.51 [facility] Comment on above: Performed By: #### L 100.0100, L500.2500 #### [facility] [address] [place], [address] Absolute Neut 3.1 X10 3/uL Normal 2.0-7.7 [facility] Comment on above: Performed By: #### L 100.0100, L500.2500 #### [facility] [address] [place], [address] Basophils/100 WBC (Bld) 1.0 % Normal 0-1 [facility] Comment on above: Performed By: #### L 100.0100, L500.2500 #### [facility] [address] [place], [address] Eosinophils/100 WBC (Bld) 2.5 % Normal 0-5 [facility] Comment on above: Performed By: #### L 100.0100, L500.2500 #### [facility] [address] [place], [address] Erythrocyte distribution width (RBC) [Ratio] 12.8 % Normal 11.6-14.6 [facility] Comment on above: Performed By: #### L 100.0100, L500.2500 #### [facility] [address] [place], [address] Hematocrit (Bld) [Volume fraction] 36.5 % Low 37-47 [facility] Comment on above: Performed By: #### L 100.0100, L500.2500 #### [facility] [address] [place], [address] Hemoglobin (Bld) [Mass/Vol] 12.0 g/dL Normal 12.0-15.0 [facility] Comment on above: Performed By: #### L 100.0100, L500.2500 #### [facility] [address] [place], [address] IG% 1.200 High 0.0-0.9 [facility] Comment on above: Result Comment: IG% - Immature Granulocytes (promyelocytes, myelocytes and metamyelocytes) > 1% indicates that a LEFT SHIFT is Present. Performed By: #### L 100.0100, L500.2500 #### [facility] [address] [place], [address] Lymphocytes/100 WBC (Bld) 23.8 % Normal 19-41 [facility] Comment on above: Performed By: #### L 100.0100, L500.2500 #### [facility] [address] [place], [address] MCH (RBC) [Entitic mass] 30.2 pg Normal 27.0-32.0 [facility] Comment on above: Performed By: #### L 100.0100, L500.2500 #### [facility] [address] [place], [address] MCHC (RBC) [Mass/Vol] 32.9 g/dL Normal 32-36 [facility] Comment on above: Performed By: #### L 100.0100, L500.2500 #### [facility] [address] [place], [address] MCV (RBC) [Entitic vol] 91.9 fL Normal 81-99 [facility] Comment on above: Performed By: #### L 100.0100, L500.2500 #### [facility] [address] [place], [address] Monocytes/100 WBC (Bld) 12.2 % High 0-10 [facility] Comment on above: Performed By: #### L 100.0100, L500.2500 #### [facility] [address] [place], [address] Neutrophils/100 WBC (Bld) 59.3 % Normal 47-70 [facility] Comment on above: Performed By: #### L 100.0100, L500.2500 #### [facility] [address] [place], [address] Nucleated RBC (Bld) [#/Vol] 0 10*3/uL Normal 0-5 [facility] Comment on above: Performed By: #### L 100.0100, L500.2500 #### [facility] [address] [place], [address] Platelet mean volume (Bld) [Entitic vol] 12.1 fL High 6.2-12.0 [facility] Comment on above: Performed By: #### L 100.0100, L500.2500 #### [facility] [address] [place], [address] Platelets (Bld) [#/Vol] 233 10*3/uL Normal 150-450 [facility] Comment on above: Performed By: #### L 100.0100, L500.2500 #### [facility] [address] [place], [address] RBC (Bld) [#/Vol] 3.97 10*6/uL Low 4.2-5.4 [facility] Comment on above: Performed By: #### L 100.0100, L500.2500 #### [facility] [address] [place], [address] RDW SD 43.1 fl Normal 35.1-43.9 [facility] Comment on above: Performed By: #### L 100.0100, L500.2500 #### [facility] [address] [place], [address] WBC (Bld) [#/Vol] 5.2 10*3/uL Normal 4.4-11.0 [facility] Comment on above: Performed By: #### L 100.0100, L500.2500 #### [facility] [address] [place], [place], [address] Carbon dioxide, total [Moles /volume] in Central venous bloodOrdered By: Albin Plummer on 11-27-2024 CO2 [Moles/Vol] 24.0 mmol/L 21.0-32.0 [facility] Chloride assayOrdered By: Trenton Plummer on 11-27-2024 Chloride [Moles/Vol] 104 mmol/L 98-108 [facility] Clavicleon 11-27-2024 Clavicle [facility] Imaging Services [address] [place] [address] Clavicle MR#: [id number] Acct: [id number] Name: RADHA MAYERS Rep #: [id number] : 1935 F 89 From: Yomi Mae MD PCP: Dr. Rehan Lucero DO Status: REG ER Study: Clavicle Date of Exam: 11/27/24 Exam# [id number] Ordering Dr: Albin Plummer MD PROCEDURE: CLAVICLE 11/27/2024 REASON FOR EXAM: TRAUMA, PAIN TECHNIQUE: 2 view(s) of each clavicle FINDINGS: Left CLAVICLE: Bones right: Acute comminuted inferiorly displaced fracture of the distal left clavicle. Joints right: No severe arthrosis. Soft tissues right: Unremarkable. : RAD/Clavicle IMPRESSION: Acute comminuted inferiorly displaced fracture of the distal left clavicle. Reading Location: [id number] CC: Dr. Albin Plummer MD; Dr. Rehan Lucero DO [place]: Signed Normal [facility] Emergency Department Summary on 11-27-2024 Emergency Department Summary [facility] Medical Records Department [address] [place] [address] Emergency Department Summary 11/27/24 MR#: [id number] Acct: [id number] Name: RADHA MAYERS Rep #: [id number] : 1935 89 From: Albin Plummer MD PCP: Dr. Rehan Lucero, DO Status:ADM SUZIE Location: MS3 [id number] HPI History of Present Illness Chief Complaint: Syncope Narrative Narrative: 89-year-old female presents with her daughter because of possible syncopal episode/fall. She is currently being treated by Dr. Kralos Ziegler for left patellar fracture. She is in a knee immobilizer for this but her daughter states that they have been exercising her out of the brace recently. Her daughter relays history that she left for a hair appointment, that when she arrived home found her mother on the floor on her back. Patient stated to her that she must have passed out but it was only 10 minutes before she got home. She was unable to get up by herself. Patient denies any prodromal symptoms, but states she is having pain in her back where she is severely kyphotic, and pain in her left shoulder. She is left-hand dominant. 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) Chronic kidney disease (CKD) Weakness generalized COVID-19 (12/2020) EE (eosinophilic esophagitis) Paroxysmal atrial fibrillation Syncope (03/2019) Bilateral pleural effusion Chronic renal insufficiency Hiatal hernia Secondary pulmonary arterial hypertension Osteoarthritis Depression GERD (gastroesophageal reflux disease) Hypothyroidism Fibromyalgia Deep vein thrombosis (DVT) (04/2012) Atherosclerosis of coronary artery of [place] heart without angina pectoris Essential (primary) hypertension Hyperlipidemia Home Medications ???Medication ???Instructions ???Recorded ???Last Taken ???Type aspirin 81 mg tablet,delayed 81 mg PO DAILY 04/24/19 01/10/21 0 9:30 History release (Adult Aspirin Regimen) pantoprazole 40 mg tablet,delayed 40 mg PO DAILY 01/10/21 10/30/22 History release loperamide 2 mg capsule (Imodium 2 mg PO Q6H PRN Diarrhea 04/18/22 Unknown History A-D) sertraline 50 mg tablet 50 mg PO DAILY 04/18/22 Unknown Hi story tramadol 50 mg tablet 25 - 50 mg PO TID PRN PRN pain Unknown History gabapentin 100 mg capsule 100 mg PO DAILY 12/07/23 Unknown H istory metoprolol tartrate 25 mg tablet 25 mg PO BID #180 tabs 01/28/24 Un known Rx levothyroxine 100 mcg tablet 100 mcg PO DAILY 02/17/24 Unknown History amlodipine 5 mg tablet 5 mg PO DAILY #90 TABLETS 04/04/24 Unknown Rx nitroglycerin 0.4 mg sublingual 0.4 mg sublingual Q5-15M #30 tabs 04/10/24 Unknown Rx tablet spironolactone 25 mg tablet 25 mg PO DAILY #90 tabs 07/14/24 U nknown Rx denosumab 60 mg/mL subcutaneous 60 mg subcut [id number] 11/26/24 Unk nown History syringe (Prolia) ibuprofen 400 mg tablet 400 mg PO TID PRN pain 11/26/24 Un known History Allergy/AdvReac Type Severity Reaction Status Date / Time atorvastatin (From Lipitor) AdvReac myalgia Verified 11/27/24 17:55 oxycodone (From Percocet) AdvReac Unknown Verified 11/27/24 17:55 propoxyphene (From AdvReac Unknown Verified 11/27/24 17:55 Darvocet-N 100) Family History Father Heart disease CAD (coronary artery disease) Mother Heart disease Diabetes CVA (cerebral vascular accident) CAD (coronary artery disease) Surgical History History of loop recorder (05/05/19) History of thoracentesis History of appendectomy History of cataract surgery History of total knee arthroplasty History of bowel resection Hx of cholecystectomy History of left heart catheterization (03/23/17) History of hysterectomy History of spinal surgery History of hemiarthroplasty of left hip History of coronary artery stent placement (05/31/12) Social History household members: spouse housing: house Smoking Status: Never smoker alcohol intake: never substance use type: does not use ROS ROS ED ROS Narrative Review of systems positive for questionable syncopal episode. Positive left shoulder pain. Positive back pain in the upper portion of back. No headache, but did hit head and fall. Denies blood thinners. Positive left knee pain secondary to previous patellar fracture, but denies new injury as she states she was wearing her knee immobilizer when she fell/passed out. EXAM Physical Exam Narrative Exam Narrative: GCS 15. ABCs intact. HEENT examination shows no crepitance of skull, PERRL, EOMI. Neck soft and supple without meningismus. Left shoulder shows ecchymosis ante (more content not included)... Normal [facility] Eosinophil percentageOrdered By: Albin Plummer on 11-27-2024 Eosinophils/100 WBC (Bld) 2.5 % 0-5 [facility] Erythrocyte distribution wid th (RBC) [Ratio]Ordered By: Albin Plummer on 11-27-2024 Erythrocyte distribution width (RBC) [Entitic vol] 43.1 fL 35.1-43.9 [facility] Erythrocyte distribution wid th ratioOrdered By: Albin Plummer on 11-27-2024 Erythrocyte distribution width (RBC) [Ratio] 12.8 % 11.6-14.6 [facility] Estimation of creatinine jovani aranceOrdered By: Albin Plummer on 11-27-2024 Estimated Creatinine Clearance Calc 23.47 ml/min Low 50-250 [facility] GFR/1.73 sq M.predicted papo g non-blacks MDRD (S/P/Bld) [Vol rate/Area]Ordered By: Albin Plummer on 11-27-2024 Estimated GFR (MDRD) Non-Af Amer 44 Low >60 [facility] Comment on above: mL/min/1.73m2 CKD-EP I Creatinine Equation (2020) H AND P Exam - Hospital[place] 11-27-2024 H&P Exam - Hospitalist [facility] Medical Records Department [address] [place] [address] H P Exam - Hospitalist 11/27/242134 MR#: [id number] Acct: [id number] Name: RADHA MAYERS Rep #: [id number] : 1935 89 From: Aguilar Gale DO PCP: Dr. Rehan Lucero, DO Status:ADM SUZIE Location: MS3 [id number] HPI - General General Date of Admission: 11/27/24 Date of Service: 11/27/24 Chief Complaint: Fall with left shoulder pain HPI Narrative RADHA MAYERS, is a 89 F who presented to [facility] ED on 11/27/24 with left shoulder pain after a fall at home. Patient lives at home with her daughter. Has been following with Dr. Karlos Ziegler for recent left patellar fracture. Patient was seen in our ED in late September for this patellar fracture and was discharged home, but per patient and daughter she then required SNF placement and only returned back home a few days ago. She continues to wear left knee brace for the patellar fracture. Earlier today daughter was gone for only 10 to 15 minutes but came back to find patient on the floor. Patient was awake and alert at that time and it appears most consistent with a mechanical fall. She was unable to get up and had significant left shoulder pain, so EMS was called to bring patient in for further evaluation. In the ED she was mildly hypertensive but otherwise stable on room air. She was found on clavicle x-ray to have an acute comminuted inferior displaced fracture of the distal left clavicle. Given this fracture and acute on chronic debility, hospitalist was contacted for admission. I saw the patient at bedside in the ED, daughter was present. Patient was fatigued appearing but otherwise laying back comfortably in bed and in no acute distress. She is hard of hearing at baseline. She did answer some questions for me but primarily with short responses. She reported only mild left shoulder pain at rest currently but stated the pain significantly worsened with any movement. She otherwise denies any acute concerns at this time. [facility] Medical History (Updated 11/27/24 @ 21:48 by Albin Plummer MD) (HFpEF) heart failure with preserved ejection fraction Osteoarthritis of hip (12/25/16) Chronic kidney disease (CKD) Weakness generalized COVID-19 (12/2020) EE (eosinophilic esophagitis) Paroxysmal atrial fibrillation Syncope (03/2019) Bilateral pleural effusion Chronic renal insufficiency Hiatal hernia Secondary pulmonary arterial hypertension Osteoarthritis Depression GERD (gastroesophageal reflux disease) Hypothyroidism Fibromyalgia Deep vein thrombosis (DVT) (04/2012) Atherosclerosis of coronary artery of [place] heart without angina pectoris Essential (primary) hypertension Hyperlipidemia Home Medications ???Medication ???Instructions ???Recorded ???Last Taken ???Type aspirin 81 mg tablet,delayed 81 mg PO DAILY blood thinner 04/2401/10/21 09:30 History release (Adult Aspirin Regimen) pantoprazole 40 mg tablet,delayed 40 mg PO DAILY gerd 01/10/21 03/ History release loperamide 2 mg capsule (Imodium 2 mg PO Q6H PRN Diarrhea 04/18/22 Unknown History A-D) sertraline 50 mg tablet 50 mg PO DAILY mood 04/18/22 Unkno wn History tramadol 50 mg tablet 25 - 50 mg PO TID PRN PRN pain Unknown History gabapentin 100 mg capsule 100 mg PO DAILY pain 12/07/23 Unkn own History metoprolol tartrate 25 mg tablet 25 mg PO BID heart #180 tabs 01/27 Unknown Rx levothyroxine 100 mcg tablet 100 mcg PO DAILY thyroid 02/17/24 Unknown History amlodipine 5 mg tablet 5 mg PO DAILY bp #90 TABLETS 04/04 Unknown Rx nitroglycerin 0.4 mg sublingual 0.4 mg sublingual Q5-15M #30 tabs 04/10/24 Unknown Rx tablet spironolactone 25 mg tablet 25 mg PO DAILY water pill #90 tabs 07/14/24 Unknown Rx denosumab 60 mg/mL subcutaneous 60 mg subcut [id number] 11/26/24 Unknown History syringe (Prolia) ibuprofen 400 mg tablet 400 mg PO TID PRN pain 11/26/24 Un known History Allergy/AdvReac Type Severity Reaction Status Date / Time atorvastatin (From Lipitor) AdvReac myalgia Verified 11/27/24 17:55 oxycodone (From Percocet) AdvReac Unknown Verified 11/27/24 17:55 propoxyphene (From AdvReac Unknown Verified 11/27/24 17:55 Darvocet-N 100) Family History Father Heart disease CAD (coronary artery disease) Mother Heart disease Diabetes CVA (cerebral vascular accident) CAD (coronary artery disease) Surgical History (Updated 11/27/24 @ 22:40 by Judy Sanchez) History of loop recorder (05/05/19) History of thoracentesis History of appendectomy History of cataract surgery History of total knee arthroplasty History of bowel resection Hx of cholecystectomy History of left heart catheterization (03/23/17) History of hys (more content not included)... Normal [facility] Hematocrit Auto (Bld) [Volum e fraction]Ordered By: Albin Plummer on 11-27-2024 Hematocrit (Bld) [Volume fraction] 36.5 % Low 37-47 [facility] Hemoglobin measurementOrdere d By: Albin Plummer on 11-27-2024 Hemoglobin (Bld) [Mass/Vol] 12.0 g/dL 12.0-15.0 [facility] Immature granulocytes/100 WB C Auto (Bld)Ordered By: Albin Plummer on 11-27-2024 Immature granulocytes/100 WBC (Bld) 1.200 % High 0.0-0.9 [facility] Comment on above: IG% - Immature Granu locytes (promyelocytes, myelocytes and metamyelocytes) > 1% indicates that a LEFT SHIFT is Present. Knee 1 or 2 Viewson 11-28-19 Knee 1 or 2 Views [facility] Imaging Services [address] [place] [address] Knee 1 or 2 Views MR#: [id number] Acct: [id number] Name: RADHA MAYERS Rep #: [id number] : 1935 F 89 From: Yomi Mae MD PCP: Dr. Rehan Lucero, Status: [facility] Study: Knee 1 or 2 Views Date of Exam: 11/27/24 Exam# [id number] Ordering Dr: Albin Plummer MD PROCEDURE: KNEE 1 OR 2 VIEWS 11/27/2024 REASON FOR EXAM: TRAUMA TECHNIQUE: 3 views of the left knee COMPARISON: 10/06/2024 FINDINGS: Bones: Healing non distracted transverse fracture of the patella. Joints: Moderate degenerative changes. Effusion: No effusion. Soft tissues: Calcified plaque in the left popliteal artery. Other: RAD/Knee 1 or 2 Views IMPRESSION: No change in healing fracture of the patella. No new fracture. Moderate arthrosis. Reading Location: [id number] CC: Dr. Albin Plummer MD; Dr. Rehan Lucero DO [place]: Signed Normal [facility] Lymphocytes Auto (Unsp spec) [#/Vol]Ordered By: Albin Plummer on 11-27-2024 Lymphocytes (Bld) [#/Vol] 1.23 10*3/uL 0.83-4.51 [facility] Lymphocytes/100 WBC Auto (Un sp spec)Ordered By: Albin Plummer on 11-27-2024 Lymphocytes/100 WBC (Bld) 23.8 % 19-41 [facility] MCV (mean corpuscular volume ) determinationOrdered By: Albin Plummer on 11-27-2024 MCV (RBC) [Entitic vol] 91.9 fL 81-99 [facility] Mean corpuscular hemoglobin (MCH) determinationOrdered By: Albin Plummer on 11-27-2024 MCH (RBC) [Entitic mass] 30.2 pg 27.0-32.0 [facility] Mean corpuscular hemoglobin concentration (MCHC) determinationOrdered By: Albin Plummer on 11-27-2024 MCHC (RBC) [Mass/Vol] 32.9 g/dL 32-36 [facility] Mean platelet volume determi nationOrdered By: Albin Plummer on 11-27-2024 Platelet mean volume (Bld) [Entitic vol] 12.1 fL High 6.2-12.0 [facility] Monocyte percentageOrdered B y: Albin Plummer on 11-27-2024 Monocytes/100 WBC (Bld) 12.2 % High 0-10 [facility] Neutrophil percentageOrdered By: Albin Plummer on 11-27-2024 Neutrophils/100 WBC (Bld) 59.3 % 47-70 [facility] Nucleated red blood cell per centageOrdered By: Albin Plummer on 11-27-2024 Nucleated RBC/100 WBC (Bld) [Ratio] 0 % 0-5 [facility] Platelet countOrdered By: Trenton Plummer on 11-27-2024 Platelets (Bld) [#/Vol] 233 10*3/uL 150-450 [facility] Potassium (Unsp spec) [Mass/ Vol]Ordered By: Albin Plummer on 11-27-2024 Potassium [Moles/Vol] 4.4 mmol/L 3.3-5.1 [facility] Comment on above: Hemolysis present, R esults could be affected. RBC Auto (Bld) [#/Vol]Ordere d By: Albin Plummer on 11-27-2024 RBC (Bld) [#/Vol] 3.97 10*6/uL Low 4.2-5.4 [facility] Serum creatinine measurement (mass/volume)Ordered By: Albin Plummer on 11-27-2024 Creatinine [Mass/Vol] 1.19 mg/dL 0.70-1.20 [facility] Serum glucose measurement (m ass/volume)Ordered By: Albin Plummer on 11-27-2024 Glucose [Mass/Vol] 91 mg/dL 70-99 [facility] Serum or plasma calcium kailyn urement (mass/volume)Ordered By: Albin Plummer on 11-27-2024 Calcium [Mass/Vol] 9.5 mg/dL 7.6-11.0 [facility] Serum or plasma urea nitroge n measurement (mass/volume)Ordered By: Albin Plummer on 11-27-2024 Urea nitrogen [Mass/Vol] 17 mg/dL 4- [facility] Shoulder min 2 Viewson 11-27 Shoulder min 2 Views [facility] Imaging Services [address] [place] [address] Shoulder min 2 Views MR#: [id number] Acct: [id number] Name: RADHA MAYERS Rep #: [id number] : 1935 F 89 From: Yomi Mae MD PCP: Dr. Rehan Lucero, Status: REG ER Study: Shoulder min 2 Views Date of Exam: 11/27/24 Exam# [id number] Ordering Dr: Albin Plummer MD PROCEDURE: SHOULDER MIN 2 VIEWS 11/27/2024 REASON FOR EXAM: TRAUMA TECHNIQUE: 3 view(s) of the left shoulder FINDINGS: Bones: Acute comminuted inferiorly displaced fracture of the distal left clavicle. Joints: Normal alignment of the acromioclavicular and glenohumeral joints. Soft tissues: Soft tissues are unremarkable. Other: RAD/Shoulder min 2 Views IMPRESSION: Acute comminuted inferiorly displaced fracture of the distal left clavicle. Reading Location: [id number] CC: Dr. Albin Plummer MD; Dr. Rehan Lucero DO [place]: Signed Normal [facility] Sodium levelOrdered By: Albin Plummer on 11-27-2024 Sodium [Moles/Vol] 140 mmol/L 133-145 [facility] Spine Cervical without Contr ason 11-27-2024 Spine Cervical without Contras [facility] Imaging Services [address] [place], [place] [address] Spine Cervical without Contras MR#: [id number] Acct: [id number] Name: RADHA MAYERS Rep #: [id number] : 1935 F 89 From: Tyson Pimentel DO PCP: Dr. Rehan Lucero DO Status: REG ER Study: Spine Cervical without Contras Date of Exam: 0 11/27/24 Exam# [id number] Ordering Dr: Albin Plummer MD PROCEDURE: SPINE CERVICAL WITHOUT CONTRAS 11/27/2024 REASON FOR EXAM: TRAUMA TECHNIQUE: Cervical spine CT without contrast. Coronal and Sagittal reconstruction series were provided. One or more dose reduction techniques were used (e.g., Automated exposure control, adjustment of the mA and/or kV according to patient size, use of iterative reconstruction technique RADIATION DOSE SUMMARY: CTDlvol: 16 mGy DLP: 285 mGycm COMPARISON: CT of the cervical spine dated 10/06/2024 FINDINGS: Alignment: Hyperlordosis with slight anterolisthesis of C4 on C5. Discs: Multilevel narrowing of the intervertebral disc spaces. Vertebrae: No acute fracture. Cervical vertebral body heights are preserved. Multilevel uncovertebral arthropathy. Soft Tissues: No acute abnormality. Other: Carotid artery calcifications. CT/Spine Cervical without Contras IMPRESSION: No acute fracture. Slight anterolisthesis of C4 on C5. Reading Location[facility] CC: Dr. Albin Plummer MD; Dr. Rehan Lucero DO [place]: Signed Normal [facility] Spine Lumbar without Contras ton 11-27-2024 Spine Lumbar without Contrast [facility] Imaging Services [address] [place] [address] Spine Lumbar without Contrast MR#: [id number] Acct: [id number] Name: RADHA MAYERS Rep #: [id number] : 1935 F 89 From: Yomi Mae MD PCP: Dr. Rehan Lucero DO Status: REG ER Study: Spine Lumbar without Contrast Date of Exam: Exam# [id number] Ordering Dr: Albin Plummer MD PROCEDURE: SPINE LUMBAR WITHOUT CONTRAST 11/27/2024 REASON FOR EXAM: FALL, PAIN TECHNIQUE: Lumbar spine CT without contrast. Coronal and Sagittal reconstruction series were provided. One or more dose reduction techniques were used (e.g., Automated exposure control, adjustment of the mA and/or kV according to patient size, use of iterative reconstruction technique COMPARISON: 10/06/2024 FINDINGS: Vertebrae: Chronic moderate wedge compression fracture of L1 treated with vertebroplasty. Chronic moderate wedge compression fracture of L2 with concavity of the inferior endplate. Chronic mild compression fracture of L3 with concavity of the inferior endplate. Chronic mild compression fracture of L5. All of these fractures are unchanged when compared with the prior study. There is some retropulsion of the superior endplate of L1 in the inferior endplate of L2 which are also unchanged. No acute fracture line. Alignment: Anatomic alignment. L1-2: No spinal stenosis or neural foraminal stenosis. L2-3: No change in mild retropulsion of the inferior endplate of L2 which produces mild central spinal stenosis. No neural foraminal stenosis. L3-4: Mild bilateral facet hypertrophy and ligamentum flavum hypertrophy. Mild broad disc protrusion produces mild spinal stenosis and mild bilateral neural foraminal stenosis. L4-5: Mild bilateral facet hypertrophy and ligamentum flavum hypertrophy. Moderate broad disc protrusion produces moderate spinal stenosis and moderate bilateral neural foraminal stenosis. L5-S1: No spinal stenosis or neural foraminal stenosis. Sacrum: No acute fracture. CT/Spine Lumbar without Contrast IMPRESSION: No acute fracture or subluxation. Multiple chronic compression fractures with vertebroplasty at L1. Degenerative disc disease as described above. Reading Location: [facility] CC: Dr. Albin Plummer MD; Dr. Rehan Lucero DO [place]: Signed Normal [facility] Spine Thoracic without Contr ason 11-27-2024 Spine Thoracic without Contras [facility] Imaging Services [address] [facility] [place], [place] [address] Spine Thoracic without Contras MR#: [id number] Acct: [id number] Name: RADHA MAYERS Rep #: [id number] : 1935 F 89 From: Tyson Pimentel DO PCP: Dr. Rehan Lucero DO Status: REG ER Study: Spine Thoracic without Contras Date of Exam: 0 11/27/24 Exam# [id number] Ordering Dr: Albin Plummer MD PROCEDURE: SPINE THORACIC WITHOUT CONTRAS REASON FOR EXAM: FALL, PAIN TECHNIQUE: Thoracic spine CT without contrast. Coronal and Sagittal reconstruction series were provided. One or more dose reduction techniques were used (e.g., Automated exposure control, adjustment of the mA and/or kV according to patient size, use of iterative reconstruction technique). RADIATION DOSE SUMMARY: CTDlvol: 18 mGy DLP: 623 mGycm COMPARISON: CT thoracic spine dated 10/06/2024 FINDINGS: Alignment: Hyperkyphosis of the thoracic spine. Bones: Multilevel compression fracture deformity of the thoracic vertebral body, with vertebroplasty involving T5, T7, T9 and T10 vertebral bodies. Overall this is stable in comparison to the prior study. No new fractures are demonstrated. Soft Tissues: Large hiatal hernia with circumferential wall thickening of the distal esophagus. Other: Patchy bibasilar pulmonary airspace opacities, concerning for infiltrates, as well as scattered bilateral areas of atelectasis/scarring. Biapical focal area of pleural thickening/scarring. Extensive atherosclerotic calcification of the thoracic aorta. CT/Spine Thoracic without Contras IMPRESSION: No acute fracture or subluxation. Extensive compression fracture deformity of the thoracic spine as described above. Large hiatal hernia with circumferential wall thickening of the distal esophagus. Esophagram may be helpful for further characterization. Patchy bibasilar pulmonary infiltrates. Reading Location: [facility] CC: Dr. Albin Plummer MD; Dr. Rehan Lucero DO [place]: Signed Normal [facility] White blood cell (WBC) count Ordered By: Albin Plummer on 11-27-2024 WBC (Bld) [#/Vol] 5.2 10*3/uL 4.4-11.0 [facility] Cardiology Visit Reporton Cardiology Visit Report [facility] [address] [place], [place] [address] OFFICE VISIT Date of Service: 11/26/24 MR#: [id number] Acct: [id number] Name: RADHA MAYERS Rep #: [id number] : 1935 Provider: ESCOBAR Diamond Age/Sex: 89/F Location: [facility] [place] Status: Signed HPI HPI History of Present Illness Details: This is an 89 year old female who presents here today for a cardiovascular follow up visit. She does have a history of coronary artery disease with angioplasty and stenting to her LAD in 2011. She underwent a heart catheterization in 2012 and 2016 for chest discomfort. Diagnostic heart catheterization demonstrated 30% distal left main, 30% ostial LAD both of which underwent FFR which were negative, patent stent in the LAD was noted, circumflex artery had mild diffuse disease with a 50% OM lesion. The right coronary artery was dominant and had mild diffuse disease. Medical therapy was recommended. She also has a history of aortic valve regurgitation, hypertension, hyperlipidemia, and chronic kidney disease. Her loop recorder had reached MELISSA, and she had this explanted in October of 2022. She fell in 09/2024 and fractured her left patella. She sees Dr. Ziegler for this. She did spend time in a SNF. She is now at home with her Dtr and YOANNA. She is getting home therapy. She presents to the office in a wheel chair, accompanied by her daughter. She does have occasional palpitations- she describes this as a faster heart beat. She does sometimes have cp, it is not brought on by anything in particular. She does have a hiatal hernia. It does not last long, it is not concerning. She does have occasional SOB with exertion-this is nothing new or worsening. She denies Orthopnea, and PND. She does have occasional lightheadedness with quick positional changes. 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: No Accompanied by: Daughter Is patient in pain?: No Allergies atorvastatin (From Lipitor) Adverse Reaction (Verified 11/26/24 14:26) myalgia oxycodone (From Percocet) Adverse Reaction (Verified 11/26/24 14:26) Unknown propoxyphene (From Darvocet-N 100) Adverse Reaction (Verified 11/26/24 14:26) Unknown Medications ???Medication ???Instructions ???Recorded ???Confirmed ???Type aspirin 81 mg tablet,delayed 81 mg PO DAILY 04/24/19 11/26/24 H istory release (Adult Aspirin Regimen) pantoprazole 40 mg tablet,delayed 40 mg PO DAILY 01/10/21 11/26/24 History release loperamide 2 mg capsule (Imodium 2 mg PO Q6H PRN Diarrhea 04/18/22 11/26/24 History A-D) sertraline 50 mg tablet 50 mg PO DAILY 04/18/22 11/26/24 H istory tramadol 50 mg tablet 25 - 50 mg PO TID PRN PRN pain 11/26/24 History gabapentin 100 mg capsule 100 mg PO DAILY 12/07/23 11/26/24 History metoprolol tartrate 25 mg tablet 25 mg PO BID #180 tabs 01/28/24 Rx levothyroxine 100 mcg tablet 100 mcg PO DAILY 02/17/24 11/26/24 History amlodipine 5 mg tablet 5 mg PO DAILY #90 TABLETS 04/04/24 11/26/24 Rx nitroglycerin 0.4 mg sublingual 0.4 mg sublingual Q5-15M #30 tabs 04/10/24 11/26/24 Rx tablet spironolactone 25 mg tablet 25 mg PO DAILY #90 tabs 07/14/24 0 11/26/24 Rx denosumab 60 mg/mL subcutaneous 60 mg subcut [id number] 11/26/24 History syringe (Prolia) ibuprofen 400 mg tablet 400 mg PO TID PRN pain 11/26/24 History Ejection fraction %: 60 Have you fallen in the past year?: Yes (Trip and fell, broken left kneecap) PFSH Medical History (HFpEF) heart failure with preserved ejection fraction Osteoarthritis of hip (12/25/16) Chronic kidney disease (CKD) Weakness generalized COVID-19 (12/2020) EE (eosinophilic esophagitis) Paroxysmal atrial fibrillation Syncope (03/2019) Bilateral pleural effusion Chronic renal insufficiency Hiatal hernia Secondary pulmonary arterial hypertension Osteoarthritis Depression GERD (gastroesophageal reflux disease) Hypothyroidism Fibromyalgia Deep vein thrombosis (DVT) (04/2012) Atherosclerosis of coronary artery of [place] heart without angina pectoris Essential (primary) hypertension Hyperlipidemia Surgical History History of loop recorder (05/05/19) History of thoracentesis History of appendectomy History of cataract surgery History of total knee arthroplasty History of bowel resection Hx of cholecystectomy History of left heart catheterization (03/23/17) History of hysterectomy (more content not included)... Normal [facility] BUN/creatinine ratioOrdered By: Jamir Eagle on 10-08-2024 Urea nitrogen/Creatinine [Mass ratio] 22.9 mg/mg High 10-20 [facility] Bilirubin, totalOrdered By: Jamir Eagle on 10-08-2024 Bilirubin [Mass/Vol] 0.53 mg/dL 0.00-1.30 [facility] CBC-Complete Blood Cnt No Di ffon 10-08-2024 Erythrocyte distribution width (RBC) [Ratio] 12.3 % Normal 11.6-14.6 [facility] Comment on above: Performed By: #### L 100.0100, L500.2500 #### [facility] [place], [address] Hematocrit (Bld) [Volume fraction] 31.6 % Low 37-47 [facility] Comment on above: Performed By: #### L 100.0100, L500.2500 #### [facility] [address] [place], [address] Hemoglobin (Bld) [Mass/Vol] 9.9 g/dL Low 12.0-15.0 [facility] Comment on above: Performed By: #### L 100.0100, L500.2500 #### [facility] [address] [place], [address] MCH (RBC) [Entitic mass] 30.1 pg Normal 27.0-32.0 [facility] Comment on above: Performed By: #### L 100.0100, L500.2500 #### [facility] [address] [place], [address] MCHC (RBC) [Mass/Vol] 31.3 g/dL Low 32-36 [facility] Comment on above: Performed By: #### L 100.0100, L500.2500 #### [facility] [address] [place], [address] MCV (RBC) [Entitic vol] 96.0 fL Normal 81-99 [facility] Comment on above: Performed By: #### L 100.0100, L500.2500 #### [facility] [address] [place], [address] Platelet mean volume (Bld) [Entitic vol] 11.7 fL Normal 6.2-12.0 [facility] Comment on above: Performed By: #### L 100.0100, L500.2500 #### [facility] [address] [place], [address] Platelets (Bld) [#/Vol] 271 10*3/uL Normal 150-450 [facility] Comment on above: Performed By: #### L 100.0100, L500.2500 #### [facility] [address] [place], [address] RBC (Bld) [#/Vol] 3.29 10*6/uL Low 4.2-5.4 [facility] Comment on above: Performed By: #### L 100.0100, L500.2500 #### [facility] [address] [place], [address] RDW SD 42.7 fl Normal 35.1-43.9 [facility] Comment on above: Performed By: #### L 100.0100, L500.2500 #### [facility] [address] [place], [address] WBC (Bld) [#/Vol] 7.7 10*3/uL Normal 4.4-11.0 [facility] Comment on above: Performed By: #### L 100.0100, L500.2500 #### [facility] [address] [place], [address] Carbon dioxide measurementOr dered By: Jamir Eagle on 10-08-2024 CO2 [Moles/Vol] 23.6 mmol/L 22.0-29.0 [facility] Chloride measurementOrdered By: Jamir Eagle on 10-08-2024 Chloride [Moles/Vol] 106 mmol/L 96-108 [facility] Comprehensive Metabolic Prof ilon 10-08-2024 Albumin [Mass/Vol] 3.4 g/dL Normal 3.4-4.8 [facility] Comment on above: Performed By: #### L 100.0100, L500.2500 #### [facility] [address] [place], [address] Albumin/Globulin [Mass ratio] 1.3 {ratio} Normal 0.9-2.4 [facility] Comment on above: Performed By: #### L 100.0100, L500.2500 #### [facility] [address] [place], [address] ALK PHOS 38 U/L Normal 35-104 [facility] Comment on above: Performed By: #### L 100.0100, L500.2500 #### [facility] [address] [place], [address] ALT [Catalytic activity/Vol] 6 U/L Normal <=34 [facility] Comment on above: Performed By: #### L 100.0100, L500.2500 #### [facility] [address] [place], [address] Anion gap [Moles/Vol] 10 mmol/L Normal 5-15 [facility] Comment on above: Performed By: #### L 100.0100, L500.2500 #### [facility] [address] [place], [address] AST [Catalytic activity/Vol] 20 U/L Normal <=31 [facility] Comment on above: Performed By: #### L 100.0100, L500.2500 #### [facility] [address] [place], [address] Bilirubin [Mass/Vol] 0.53 mg/dL Normal 0.00-1.30 [facility] Comment on above: Performed By: #### L 100.0100, L500.2500 #### [facility] [address] [place], [address] BUN/CRE 22.9 RATIO High 10-20 [facility] Comment on above: Performed By: #### L 100.0100, L500.2500 #### [facility] [address] [place], [address] Calcium [Mass/Vol] 8.7 mg/dL Normal 7.6-11.0 [facility] Comment on above: Performed By: #### L 100.0100, L500.2500 #### [facility] [address] [place], [address] Chloride [Moles/Vol] 106 mmol/L Normal 96-108 [facility] Comment on above: Performed By: #### L 100.0100, L500.2500 #### [facility] [address] [place], [address] CO2 [Moles/Vol] 23.6 mmol/L Normal 22.0-29.0 [facility] Comment on above: Performed By: #### L 100.0100, L500.2500 #### [facility] [address] [place], [address] Creatinine [Mass/Vol] 1.0 mg/dL Normal 0.6-1.0 [facility] Comment on above: Performed By: #### L 100.0100, L500.2500 #### [facility] [address] [place], [address] GFR/1.73 sq M.predicted among non-blacks MDRD (S/P/Bld) [Vol rate/Area] 54 mL/min/{1.73_m2} Low >60 [facility] Comment on above: Result Comment: mL/m in/1.73m2 CKD-EPI Creatinine Equation (2020) Performed By: #### L 100.0100, L500.2500 #### [facility] [address] [place], [address] Globulin (S) [Mass/Vol] 2.6 g/dL Normal 2.2-4.2 [facility] Comment on above: Performed By: #### L 100.0100, L500.2500 #### [facility] [address] [place], [address] Glucose [Mass/Vol] 90 mg/dL Normal 70-99 [facility] Comment on above: Performed By: #### L 100.0100, L500.2500 #### [facility] [address] [place], [address] Potassium [Moles/Vol] 4.5 mmol/L Normal 3.3-5.1 [facility] Comment on above: Performed By: #### L 100.0100, L500.2500 #### [facility] [address] [place], [address] Sodium [Moles/Vol] 139 mmol/L Normal 133-145 [facility] Comment on above: Performed By: #### L 100.0100, L500.2500 #### [facility] [address] [place], [address] T PROT 6.1 g/dL Normal 5.9-8.4 [facility] Comment on above: Performed By: #### L 100.0100, L500.2500 #### [facility] [address] [place], [address] Urea nitrogen [Mass/Vol] 23 mg/dL High 4-19 [facility] Comment on above: Performed By: #### L 100.0100, L500.2500 #### [facility] [address] [place], [address] Creatinine [Moles/Vol]Ordere d By: Jamir Eagle on 10-08-2024 Creatinine [Mass/Vol] 1.0 mg/dL 0.6-1.0 [facility] Erythrocyte distribution wid th (RBC) [Ratio]Ordered By: Jamir Eagle on 10-08-2024 Erythrocyte distribution width (RBC) [Entitic vol] 42.7 fL 35.1-43.9 [facility] Erythrocyte distribution wid th ratioOrdered By: Jamir Eagle on 10-08-2024 Erythrocyte distribution width (RBC) [Ratio] 12.3 % 11.6-14.6 [facility] Erythrocyte distribution wid th standard deviationOrdered By: Jamir Eagle on 10-08-2024 Erythrocyte distribution width (RBC) [Ratio] 42.7 fl 35.1-43.9 [facility] GFR/1.73 sq M.predicted papo g non-blacks MDRD (S/P/Bld) [Vol rate/Area]Ordered By: Jamir Eagle on 10-08-2024 Estimated GFR (MDRD) Non-Af Amer 54 Low >60 [facility] Comment on above: mL/min/1.73m2 CKD-EP I Creatinine Equation (2020) Glomerular filtration rate ( GFR) estimation/1.73 sq m using serum, plasma, or whole bOrdered By: Jamir Eagle on 10-08-2024 GFR/1.73 sq M.predicted among non-blacks MDRD (S/P/Bld) [Vol rate/Area] 54 mL/min/{1.73_m2} Low >60 [facility] Comment on above: mL/min/1.73m2 CKD-EP I Creatinine Equation (2020) Hematocrit Auto (Bld) [Volum e fraction]Ordered By: Jamir Eagle on 10-08-2024 Hematocrit (Bld) [Volume fraction] 31.6 % Low 37-47 [facility] Hemoglobin measurementOrdere d By: Jamir Eagle on 10-08-2024 Hemoglobin (Bld) [Mass/Vol] 9.9 g/dL Low 12.0-15.0 [facility] - Chemistry and C hemistry - challengeOrdered By: Jamir Eagle on 10-08-2024 AST [Catalytic activity/Vol] 20 U/L <32 [facility] MCV (mean corpuscular volume ) determinationOrdered By: Jamir Eagle on 10-08-2024 MCV (RBC) [Entitic vol] 96.0 fL 81-99 [facility] Mean corpuscular hemoglobin (MCH) determinationOrdered By: Jamir Eagle on 10-08-2024 MCH (RBC) [Entitic mass] 30.1 pg 27.0-32.0 [facility] Mean corpuscular hemoglobin concentration (MCHC) determinationOrdered By: Jamir Eagle on 10-08-2024 MCHC (RBC) [Mass/Vol] 31.3 g/dL Low 32-36 [facility] Mean platelet volume determi nationOrdered By: Jamir Eagle on 10-08-2024 Platelet mean volume (Bld) [Entitic vol] 11.7 fL 6.2-12.0 [facility] Platelet countOrdered By: Casarez on 10-08-2024 Platelets (Bld) [#/Vol] 271 10*3/uL 150-450 [facility] RBC Auto (Bld) [#/Vol]Ordere d By: Jamir Eagle on 10-08-2024 RBC (Bld) [#/Vol] 3.29 10*6/uL Low 4.2-5.4 [facility] Serum globulin measurementOr dered By: Jamir Eagle on 10-08-2024 Globulin (S) [Mass/Vol] 2.6 g/dL 2.2-4.2 [facility] Serum glucose measurement (m ass/volume)Ordered By: Jamir Eagle on 10-08-2024 Glucose [Mass/Vol] 90 mg/dL 70-99 [facility] Serum or plasma alanine saleem otransferase (ALT) measurementOrdered By: Jamir Eagle on 10-08-2024 ALT [Catalytic activity/Vol] 6 U/L <35 [facility] Serum or plasma albumin kailyn urement (mass/volume)Ordered By: Jamir Eagle on 10-08-2024 Albumin [Mass/Vol] 3.4 g/dL 3.4-4.8 [facility] Serum or plasma albumin/glob ulin mass ratioOrdered By: Jamir Eagle on 10-08-2024 Albumin/Globulin [Mass ratio] 1.3 {ratio} 0.9-2.4 [facility] Serum or plasma alkaline leanne sphatase measurementOrdered By: Jamir Eagle on 10-08-2024 ALP [Catalytic activity/Vol] 38 U/L 35-104 [facility] Serum or plasma anion gap de termination (moles/volume)Ordered By: Jamir Eagle on 10-08-2024 Anion gap [Moles/Vol] 10 mmol/L 5-15 [facility] Serum or plasma calcium kailyn urement (mass/volume)Ordered By: Jamir Eagle on 10-08-2024 Calcium [Mass/Vol] 8.7 mg/dL 7.6-11.0 [facility] Serum or plasma creatinine m easurement (moles/volume)Ordered By: Jamir Eagle on 10-08-2024 Creatinine [Moles/Vol] 1.0 mg/dL 0.6-1.0 [facility] Serum or plasma potassium me asurementOrdered By: Jamir Eagle on 10-08-2024 Potassium [Moles/Vol] 4.5 mmol/L 3.3-5.1 [facility] Serum or plasma sodium measu rement (moles/volume)Ordered By: Jamir Eagle on 10-08-2024 Sodium [Moles/Vol] 139 mmol/L 133-145 [facility] Serum or plasma urea nitroge n measurement (mass/volume)Ordered By: Jamir Eagle on 10-08-2024 Urea nitrogen [Mass/Vol] 23 mg/dL High 4-19 [facility] Total proteinOrdered By: Mariel Eagle on 10-08-2024 Protein [Mass/Vol] 6.1 g/dL 5.9-8.4 [facility] White blood cell (WBC) count Ordered By: Jamir Eagle on 10-08-2024 WBC (Bld) [#/Vol] 7.7 10*3/uL 4.4-11.0 [facility] Bilirubin Test strip Ql (U)O rdered By: Benito Romero on 10-06-2024 Bilirubin Ql (U) Negative Negative [facility] CBC W/Diff, Automatedon 09-14 Absolute Lymph 0.85 X10 3/uL Normal 0.83-4.51 [facility] Comment on above: Performed By: #### L 500.2500, L100.0100 #### [facility] [address] [place], [address] Absolute Neut 10.5 X10 3/uL High 2.0-7.7 [facility] Comment on above: Performed By: #### L 500.2500, L100.0100 #### [facility] [address] [place], [address] Basophils/100 WBC (Bld) 0.2 % Normal 0-1 [facility] Comment on above: Performed By: #### L 500.2500, L100.0100 #### [facility] [address] [place], [address] Eosinophils/100 WBC (Bld) 0.9 % Normal 0-5 [facility] Comment on above: Performed By: #### L 500.2500, L100.0100 #### [facility] [address] [place], [address] Erythrocyte distribution width (RBC) [Ratio] 12.5 % Normal 11.6-14.6 [facility] Comment on above: Performed By: #### L 500.2500, L100.0100 #### [facility] [address] [place], [address] Hematocrit (Bld) [Volume fraction] 36.1 % Low 37-47 [facility] Comment on above: Performed By: #### L 500.2500, L100.0100 #### [facility] [address] [place], [address] Hemoglobin (Bld) [Mass/Vol] 11.8 g/dL Low 12.0-15.0 [facility] Comment on above: Performed By: #### L 500.2500, L100.0100 #### [facility] [address] [place], [address] IG% 0.500 Normal 0.0-0.9 [facility] Comment on above: Result Comment: IG% - Immature Granulocytes (promyelocytes, myelocytes and metamyelocytes) > 1% indicates that a LEFT SHIFT is Present. Performed By: #### L 500.2500, L100.0100 #### [facility] [address] [place], [address] Lymphocytes/100 WBC (Bld) 6.8 % Low 19-41 [facility] Comment on above: Performed By: #### L 500.2500, L100.0100 #### [facility] [address] [place], [address] MCH (RBC) [Entitic mass] 30.8 pg Normal 27.0-32.0 [facility] Comment on above: Performed By: #### L 500.2500, L100.0100 #### [facility] [address] [place], [address] MCHC (RBC) [Mass/Vol] 32.7 g/dL Normal 32-36 [facility] Comment on above: Performed By: #### L 500.2500, L100.0100 #### [facility] [address] [place], [address] MCV (RBC) [Entitic vol] 94.3 fL Normal 81-99 [facility] Comment on above: Performed By: #### L 500.2500, L100.0100 #### [facility] [address] [place], [address] Monocytes/100 WBC (Bld) 8.0 % Normal 0-10 [facility] Comment on above: Performed By: #### L 500.2500, L100.0100 #### [facility] [address] [place], [address] Neutrophils/100 WBC (Bld) 83.6 % High 47-70 [facility] Comment on above: Performed By: #### L 500.2500, L100.0100 #### [facility] [address] [place], [address] Nucleated RBC (Bld) [#/Vol] 0 10*3/uL Normal 0-5 [facility] Comment on above: Performed By: #### L 500.2500, L100.0100 #### [facility] [address] [place], [address] Platelet mean volume (Bld) [Entitic vol] 10.8 fL Normal 6.2-12.0 [facility] Comment on above: Performed By: #### L 500.2500, L100.0100 #### [facility] [address] [place], [address] Platelets (Bld) [#/Vol] 264 10*3/uL Normal 150-450 [facility] Comment on above: Performed By: #### L 500.2500, L100.0100 #### [facility] [address] [place], [address] RBC (Bld) [#/Vol] 3.83 10*6/uL Low 4.2-5.4 [facility] Comment on above: Performed By: #### L 500.2500, L100.0100 #### [facility] [address] [place], [address] RDW SD 43.2 fl Normal 35.1-43.9 [facility] Comment on above: Performed By: #### L 500.2500, L100.0100 #### [facility] [address] [place], [address] WBC (Bld) [#/Vol] 12.5 10*3/uL High 4.4-11.0 [facility] Comment on above: Performed By: #### L 500.2500, L100.0100 #### [facility] [address] [place], [address] Comprehensive Metabolic Prof ilon 10-06-2024 Albumin [Mass/Vol] 3.4 g/dL Normal 3.2-5.0 [facility] Comment on above: Performed By: #### L 500.2500, L100.0100 #### [facility] [address] [place], [address] Albumin/Globulin [Mass ratio] 0.9 {ratio} Normal 0.9-2.4 [facility] Comment on above: Performed By: #### L 500.2500, L100.0100 #### [facility] [address] [place], [address] ALK P 45 U/L Normal 45-117 [facility] Comment on above: Performed By: #### L 500.2500, L100.0100 #### [facility] [address] [place], [address] ALT [Catalytic activity/Vol] 13 U/L Normal 13-56 [facility] Comment on above: Performed By: #### L 500.2500, L100.0100 #### [facility] [address] [place], [address] AST [Catalytic activity/Vol] 17 U/L Normal 15-37 [facility] Comment on above: Performed By: #### L 500.2500, L100.0100 #### [facility] [address] [place], [address] Bilirubin [Mass/Vol] 0.90 mg/dL Normal 0.20-1.00 [facility] Comment on above: Result Comment: For patients on eltrombopag therapy, use of Dimension [place] TBIL is not recommended. Performed By: #### L 500.2500, L100.0100 #### [facility] [address] [place], [address] BUN/CRE 20.4 RATIO High 10-20 [facility] Comment on above: Performed By: #### L 500.2500, L100.0100 #### [facility] [address] [place], [address] CA,Total 9.1 mg/dL Normal 8.5-10.1 [facility] Comment on above: Performed By: #### L 500.2500, L100.0100 #### [facility] [address] [place], [address] Chloride [Moles/Vol] 105 mmol/L Normal 98-107 [facility] Comment on above: Performed By: #### L 500.2500, L100.0100 #### [facility] [address] [place], [address] CO2 [Moles/Vol] 24.0 mmol/L Normal 21.0-32.0 [facility] Comment on above: Performed By: #### L 500.2500, L100.0100 #### [facility] [address] [place], [address] Creatinine [Mass/Vol] 1.03 mg/dL High 0.55-1.02 [facility] Comment on above: Result Comment: The validity of the calculated GFR GFRAA in patients over 70 years has not been determined. Clinical correlation is essential. Performed By: #### L 500.2500, L100.0100 #### [facility] [address] [place], [address] ECRCL 30.27 ml/min Normal [facility] Comment on above: Performed By: #### L 500.2500, L100.0100 #### [facility] [address] [place], [address] EST GFR - AA 65 mL/min Normal >60 [facility] Comment on above: Result Comment: Afri can Nigerian GFR Calc Performed By: #### L 500.2500, L100.0100 #### [facility] [address] [place], [address] GAP 7 Normal 5-15 [facility] Comment on above: Performed By: #### L 500.2500, L100.0100 #### [facility] [address] [place], [address] GFR/1.73 sq M.predicted among non-blacks MDRD (S/P/Bld) [Vol rate/Area] 54 mL/min/{1.73_m2} Low >60 [facility] Comment on above: Result Comment: Non- GFR Calc Performed By: #### L 500.2500, L100.0100 #### [facility] [address] [place], [address] Globulin (S) [Mass/Vol] 3.6 g/dL Normal 2.2-4.2 [facility] Comment on above: Performed By: #### L 500.2500, L100.0100 #### [facility] [address] [place], [address] Glucose [Mass/Vol] 122 mg/dL High 74-106 [facility] Comment on above: Result Comment: Fast ing Glucose result from 100 to 125 mg/dL suggests IMPAIRED HOMEOSTASIS per A.D.A. criteria. Performed By: #### L 500.2500, L100.0100 #### [facility] [address] [place], [address] Potassium [Moles/Vol] 4.1 mmol/L Normal 3.5-5.1 [facility] Comment on above: Performed By: #### L 500.2500, L100.0100 #### [facility] [address] [place], [address] Sodium [Moles/Vol] 136 mmol/L Normal 136-145 [facility] Comment on above: Performed By: #### L 500.2500, L100.0100 #### [facility] [address] [place], [address] T PROT 7.0 g/dL Normal 6.4-8.2 [facility] Comment on above: Performed By: #### L 500.2500, L100.0100 #### [facility] [address] [place], [address] Urea nitrogen [Mass/Vol] 21 mg/dL High 7-18 [facility] Comment on above: Performed By: #### L 500.2500, L100.0100 #### [facility] [address] [place], [address] Emergency Department Summary on 10-06-2024 Emergency Department Summary [facility] Medical Records Department [address] [place] [address] Emergency Department Summary 10/06/24 MR#: [id number] Acct: [id number] Name: RADHA MAYERS Rep #: [id number] : [id number] From: Braydon Nathan DO PCP: Dr. Rehan Lucero DO Status:REG ER Location: ED HPI History of Present Illness Chief Complaint: General Illness Informant: patient and family Narrative Narrative: 89-year-old female sustained a fall on Sunday night coming down injuring her left knee. She was seen in the emergency room late last night was diagnosed with a patellar fracture displaced and knee immobilizer. Family returns with her today was that inability to care for home. Patient is having difficulty getting up and down. She is having problems utilizing the bathroom. Patient blood work last night showed a mild leukocytosis at 12. There were no significant electrolyte abnormalities or AMNA. Urinalysis was negative for infection. She tested negative for COVID influenza RSV. Trauma scans and further x-ray imaging did not reveal any other fractures. Family called and spoke with social work prior to their arrival. Patient has chronic back and hip pain. Family notes that those symptoms are more swollen last night but is better today and had negative x-rays last night. 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) Chronic kidney disease (CKD) Weakness generalized COVID-19 (12/2020) EE (eosinophilic esophagitis) Paroxysmal atrial fibrillation Syncope (03/2019) Bilateral pleural effusion Chronic renal insufficiency Hiatal hernia Secondary pulmonary arterial hypertension Osteoarthritis Depression GERD (gastroesophageal reflux disease) Hypothyroidism Fibromyalgia Deep vein thrombosis (DVT) (04/2012) Atherosclerosis of coronary artery of [place] heart without angina pectoris Essential (primary) hypertension Hyperlipidemia Home Medications ???Medication ???Instructions ???Recorded ???Last Taken ???Type aspirin 81 mg tablet,delayed 81 mg PO DAILY 04/24/19 01/10/21 0 9:30 History release (Adult Aspirin Regimen) pantoprazole 40 mg tablet,delayed 40 mg PO DAILY 01/10/21 10/30/22 History release loperamide 2 mg capsule (Imodium 2 mg PO Q6H PRN Diarrhea 04/18/22 Unknown History A-D) sertraline 50 mg tablet 50 mg PO DAILY 04/18/22 Unknown Hi story tramadol 50 mg tablet 25 - 50 mg PO TID PRN PRN pain Unknown History gabapentin 100 mg capsule 100 mg PO DAILY 12/07/23 Unknown H istory metoprolol tartrate 25 mg tablet 25 mg PO BID #180 tabs 01/28/24 Un known Rx levothyroxine 100 mcg tablet 100 mcg PO DAILY 02/17/24 Unknown History amlodipine 5 mg tablet 5 mg PO DAILY #90 TABLETS 04/04/24 Unknown Rx nitroglycerin 0.4 mg sublingual 0.4 mg sublingual Q5-15M #30 tabs 04/10/24 Unknown Rx tablet spironolactone 25 mg tablet 25 mg PO DAILY #90 tabs 07/14/24 U nknown Rx Allergy/AdvReac Type Severity Reaction Status Date / Time atorvastatin (From Lipitor) AdvReac myalgia Verified 10/06/24 13:08 oxycodone (From Percocet) AdvReac Unknown Verified 10/06/24 13:08 propoxyphene (From AdvReac Unknown Verified 10/06/24 13:08 Darvocet-N 100) Family History Father Heart disease CAD (coronary artery disease) Mother Heart disease Diabetes CVA (cerebral vascular accident) CAD (coronary artery disease) Surgical History History of loop recorder (05/05/19) History of thoracentesis History of appendectomy History of cataract surgery History of total knee arthroplasty History of bowel resection Hx of cholecystectomy History of left heart catheterization (03/23/17) History of hysterectomy History of spinal surgery History of hemiarthroplasty of left hip History of coronary artery stent placement (05/31/12) Social History household members: spouse housing: house Smoking Status: Never smoker alcohol intake: never substance use type: does not use ROS ROS ED Constitutional Constitutional ED: Denies chills or weight loss Eyes Eyes: Denies change in vision or diplopia ENT ENT ED: Denies ear pain, rhinorrhea or sore throat Cardiovascular Cardiovascular: Denies chest pain, orthopnea, palpitations or racing heartbeat Respiratory/Chest Respiratory/Chest: Denies cough, dyspnea or orthopnea Gastrointestinal Gastrointestinal: Denies abdominal pain, diarrhea, nausea or vomiting Genitourinary Genitourinary ED: Denies dysuria, hematuria or urinary frequency Musculoskeletal Musculoskeletal: Reports back pain and other Details: Se (more content not included)... Normal [facility] Epithelial cells.squamous LM Ql (Urine sed)Ordered By: Benito Romero on 10-06-2024 Epithelial cells.squamous LM.HPF (Urine sed) [#/Area] 0 /[HPF] 5-10 [facility] Glucose Ql (U)Ordered By: Vijay Romero on 10-06-2024 Urine Glucose (UA) Normal mg/dl Normal [facility] Ketones Test strip Ql (U)Ord ered By: Benito Romero on 10-06-2024 Ketones Ql (U) Negative Negative [facility] M100.678on 10-06-2024 M100.678 SARS-CoV-2 (COVID 19 ) Negative INFLUENZA A Negative INFLUENZA B Negative RSV PCR Negative Normal [facility] Comment on above: Performed By: #### M 100.678, L400.0001 ####[facility] [address] [place], [address] Microscopic analysis of urin e for red blood cells (RBC)Ordered By: Benito Romero on 10-06-2024 Microscopic analysis of urine for red blood cells (RBC) 0 SEEN /hpf 0-5 [facility] Urine RBC 0 SEEN /hpf 0-5 [facility] Mucus LM Ql (Urine sed)Order ed By: Benito Romero on 10-06-2024 Mucus Ql (Urine sed) 1+ /hpf [facility] Nitrite Test strip Ql (U)Ord ered By: Benito Romero on 10-06-2024 Nitrite Ql (U) Negative Negative [facility] Partial Thromboplast Timeon 10-06-2024 aPTT Coag (Bld) [Time] 29.0 s Normal 24.1-36.2 [facility] Comment on above: Performed By: #### L 500.2500, L100.0100 #### [facility] [address] [place], [address] Protein Test strip Ql (U)Ord ered By: Benito Romero on 10-06-2024 Protein Ql (U) 30 mg/dl High Negative [facility] Prothrombin Time w/INRon INR Coag (PPP) [Relative time] 1.2 {INR} Normal [facility] Comment on above: Performed By: #### L 500.2500, L100.0100 #### [facility] [address] [place], [address] PT Coag (PPP) [Time] 15.8 s High 11.7-14.9 [facility] Comment on above: Performed By: #### L 500.2500, L100.0100 #### [facility] [address] [place], [address] Squamous epithelial cells de tection in urine sediment by light microscopyOrdered By: Benito Romero on 10-06-2024 Epithelial cells.squamous LM Ql (Urine sed) 0 SEEN /hpf 5-10 [facility] Urinalysis, Completeon 10-06 BACTERIA 3+ /hpf Normal None Seen [facility] Comment on above: Order Comment: CLEAN CATCH Performed By: #### M 100.678, L400.0001 ####[facility] [address] [place], [address] Mucus Ql (Urine sed) 1+ /hpf Normal [facility] Comment on above: Order Comment: CLEAN CATCH Performed By: #### M 100.678, L400.0001 ####[facility] [address] [place], [address] RBC 0 SEEN Normal 0-5 [facility] Comment on above: Order Comment: CLEAN CATCH Performed By: #### M 100.678, L400.0001 ####[facility] [address] [place], [address] WBC 0-5 SEEN Normal 0-5 [facility] Comment on above: Order Comment: CLEAN CATCH Performed By: #### M 100.678, L400.0001 ####[facility] [address] [place], [address] BILIRUBIN URINE Negative Normal Negative [facility] Comment on above: Order Comment: CLEAN CATCH Performed By: #### M 100.678, L400.0001 ####[facility] [address] [place], [address] Clarity (U) Sl. Cloudy Normal Clear [facility] Comment on above: Order Comment: CLEAN CATCH Performed By: #### M 100.678, L400.0001 ####[facility] [address] [place], [address] Color (U) Yellow Normal Yellow [facility] Comment on above: Order Comment: CLEAN CATCH Performed By: #### M 100.678, L400.0001 ####[facility] [address] [place], [address] GLUCOSE, UR Normal Normal Normal [facility] Comment on above: Order Comment: CLEAN CATCH Performed By: #### M 100.678, L400.0001 ####[facility] [address] [place], [address] KETONE UR Negative Normal Negative [facility] Comment on above: Order Comment: CLEAN CATCH Performed By: #### M 100.678, L400.0001 ####[facility] [address] [place], [address] LEUK ESTERASE Negative Normal Negative [facility] Comment on above: Order Comment: CLEAN CATCH Performed By: #### M 100.678, L400.0001 ####[facility] [address] [place], [address] Nitrite Ql (U) Negative Normal Negative [facility] Comment on above: Order Comment: CLEAN CATCH Performed By: #### M 100.678, L400.0001 ####[facility] [address] [place], [address] OCCULT BLOOD-UR Negative Normal Negative [facility] Comment on above: Order Comment: CLEAN CATCH Performed By: #### M 100.678, L400.0001 ####[facility] [address] [place], [address] pH UR 6.0 Normal 5.0 - 8.0 [facility] Comment on above: Order Comment: CLEAN CATCH Performed By: #### M 100.678, L400.0001 ####[facility] [address] [place], [address] PROT DIPSTX 30 mg/dl Abnormal Negative [facility] Comment on above: Order Comment: CLEAN CATCH Performed By: #### M 100.678, L400.0001 ####[facility] [address] [place], [address] SP.GR. DIPSTX 1.010 Normal 1.002-1.030 [facility] Comment on above: Order Comment: CLEAN CATCH Performed By: #### M 100.678, L400.0001 ####[facility] [address] [place], [address] UROBILI 1 mg/dl Abnormal Normal [facility] Comment on above: Order Comment: CLEAN CATCH Performed By: #### M 100.678, L400.0001 ####[facility] [address] [place], [address] EPI,SQUAMOUS 0 SEEN Normal 5-10 [facility] Comment on above: Order Comment: CLEAN CATCH Performed By: #### M 100.678, L400.0001 ####[facility] [address] [place], [address] Urine blood detectionOrdered By: Benito Romero on 10-06-2024 Urine Occult Blood Negative Negative [facility] Urine clarityOrdered By: Marino Romero on 10-06-2024 Clarity (U) Sl. Cloudy Clear [facility] Urine color determinationOrd ered By: Benito Romero on 10-06-2024 Color (U) Yellow Yellow [facility] Urine glucose detectionOrder ed By: Benito Romero on 10-06-2024 Glucose Ql (U) Normal mg/dl Normal [facility] Urine leukocyte esterase det ection by dipstickOrdered By: Benito Romero on 10-06-2024 Leukocyte esterase Test strip Ql (U) Negative Negative [facility] Urine pHOrdered By: Benito Romero on 10-06-2024 pH (U) 6.0 [pH] 5.0 - 8.0 [facility] Urine sediment bacteria coun t by microscopy (number/high power field)Ordered By: Benito Romero on 10-06-2024 Bacteria LM.HPF (Urine sed) [#/Area] 3 /[HPF] None Seen [facility] Urine specific gravity measu rementOrdered By: Benito Romero on 10-06-2024 Specific gravity (U) [Rel density] 1.010 1.002-1.030 [facility] Urine urobilinogen measureme ntOrdered By: Benito Romero on 10-06-2024 Urobilinogen Ql (U) 1 mg/dl High Normal [facility] Urobilinogen Ql (U)Ordered B y: Benito Romero on 10-06-2024 Urobilinogen (U) [Mass/Vol] 1 mg/dL High Normal [facility] White blood cell countOrdere d By: Benito Romero on 10-06-2024 Urine WBC 0-5 SEEN /hpf 0-5 [facility] White blood cell count 0-5 SEEN /hpf 0-5 [facility] Absolute lymphocyte countOrd ered By: Benito Romero on 10-05-2024 Lymphocytes Auto (Unsp spec) [#/Vol] 0.85 10*3/uL 0.83-4.51 [facility] Absolute neutrophil countOrd ered By: Benito Romero on 10-05-2024 Neutrophils (Bld) [#/Vol] 10.5 10*3/uL High 2.0-7.7 [facility] Activated partial thrombopla stin time (aPTT) in platelet poor plasma by coagulation aOrdered By: Benito Romero on 10-05-2024 aPTT Coag (PPP) [Time] 29.0 s 24.1-36.2 [facility] Albumin to globulin ratioOrd ered By: Benito Romero on 10-05-2024 Albumin/Globulin [Mass ratio] 0.9 {ratio} 0.9-2.4 [facility] Automated lymphocyte count a s percentage of total leukocytesOrdered By: Benito Romero on 10-05-2024 Lymphocytes/100 WBC Auto (Unsp spec) 6.8 % Low 19-41 [facility] Basophil percentageOrdered B y: Benito Romero on 10-05-2024 Basophils/100 WBC (Bld) 0.2 % 0-1 [facility] Bilirubin, totalOrdered By: Benito Romero on 10-05-2024 Bilirubin [Mass/Vol] 0.90 mg/dL 0.20-1.00 [facility] Comment on above: For patients on eltr ombopag therapy, use of Dimension [place] TBIL is not recommended. Blood urea nitrogen (BUN)/cr eatinine ratioOrdered By: Benito Romero on 10-05-2024 Urea nitrogen/Creatinine [Mass ratio] 20.4 mg/mg High 10-20 [facility] Brain/Head without Contrasto n 10-05-2024 Brain/Head without Contrast [facility] Imaging Services [address] [place], [place] [address] Brain/Head without Contrast MR#: [id number] Acct: [id number] Name: RADHA MAYERS Sakshi Rep #: [id number] : 1935 F 89 From: Rehan Dimas MD PCP: Dr. Rehan Lucero, DO Status: REG ER Study: Brain/Head without Contrast Date of Exam: 09/14 11/04 Exam# [id number] Ordering Dr: Benito Romero DO EXAM: Noncontrast head CT CLINICAL HISTORY: Injury, fall Sunday, chronic pain COMPARISON: None available TECHNIQUE: Noncontrast head CT with coronal and sagittal reformatted images FINDINGS: No intracranial hemorrhage, mass effect or calvarial fracture. The ventricles are within limits of midline. Chronic involutional changes. Volume loss, atrophy. [place] periventricular deep and subcortical white matter bilateral supratentorial low-attenuation statistically would represent chronic small-vessel ischemic change with superimposed acute lacunar infarct difficult to exclude. A few small scattered calcifications. The paranasal sinuses and mastoids are clear. Orbits appear within limits. CT/Brain/Head without Contrast IMPRESSION: No intracranial hemorrhage, mass effect or calvarial fracture. Age commensurate appearing chronic and involutional changes. Reading Location: [facility] CC: Dr. Rehan Lucero DO; Dr. Benito Romero DO [place]: Signed Normal [facility] Carbon dioxide measurementOr dered By: Benito Romero on 10-05-2024 CO2 [Moles/Vol] 24.0 mmol/L 21.0-32.0 [facility] Chest 1 View (Portable)on Chest 1 View (Portable) [facility] Imaging Services [address] [place] [address] Chest 1 View (Portable) MR#: [id number] Acct: [id number] Name: RADHA MAYERS Rep #: [id number] : 1935 F 89 From: Rehan Dimas MD PCP: Dr. Rehan Luceor DO Status: REG ER Study: Chest 1 View (Portable) Date of Exam: 10/05/24 Exam# [id number] Ordering Dr: Benito Romero DO PROCEDURE: CHEST 1 VIEW (PORTABLE) REASON FOR EXAM: Cough, fall, leg pain TECHNIQUE: Frontal view of the chest. COMPARISON: None available FINDINGS: The lungs overall appear clear. No evidence of pneumothorax or pleural effusion identified. Hiatal hernia and ectatic thoracic aorta with vascular calcification. Vertebroplasties and nonacute appearing rib fracture deformities. RAD/Chest 1 View (Portable) IMPRESSION: No evidence of acute traumatic injury. Reading Location: [facility] CC: Dr. Rehan Lucero DO; Dr. Benito Romero DO [place]: Signed Normal [facility] Chloride measurementOrdered By: Benito Romero on 10-05-2024 Chloride [Moles/Vol] 105 mmol/L 98-107 [facility] Emergency Department Summary on 10-05-2024 Emergency Department Summary [facility] Medical Records Department [address] [place] [address] Emergency Department Summary 10/05/24 MR#: [id number] Acct: [id number] Name: RADHA MAYERS Rep #: [id number] : 1935 89 From: Benito Plata PCP: Dr. Rehan Lucero DO Status:DEP ER Location: ED HPI HPI - Fall History of Present Illness Chief Complaint: Fall Informant: patient and family Narrative Narrative: Presents here by EMS, daughter present. Fall unwitnessed 2 days ago while walking in the house. She transition from carpet into a laminate floor. Daughter was in the bathroom when she heard her fall. She was sitting down when she saw her. Most of her pain in her left knee. She takes aspirin at home. No other anticoagulants. History of total hip arthroplasty by Dr. Karlos Ziegler. Also had a total right knee arthroplasty in the past. She has a cane to walk however she does not use it. She has had chronic back pain with kyphoplasties and lower lumbar surgery performed by Dr. Rincon. None recently. Currently follows pain management Dr. Schroeder on tramadol and gabapentin. Denies headache. Reports her back pain. Recent mild cough. Recent difficulty urinating. No vomiting or diarrhea. Patient unable to ambulate today. Daughter had a walker to try to use also. 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) Chronic kidney disease (CKD) Weakness generalized COVID-19 (12/2020) EE (eosinophilic esophagitis) Paroxysmal atrial fibrillation Syncope (03/2019) Bilateral pleural effusion Chronic renal insufficiency Hiatal hernia Secondary pulmonary arterial hypertension Osteoarthritis Depression GERD (gastroesophageal reflux disease) Hypothyroidism Fibromyalgia Deep vein thrombosis (DVT) (04/2012) Atherosclerosis of coronary artery of [place] heart without angina pectoris Essential (primary) hypertension Hyperlipidemia Home Medications ???Medication ???Instructions ???Recorded ???Last Taken ???Type aspirin 81 mg tablet,delayed 81 mg PO DAILY 04/24/19 01/10/21 0 9:30 History release (Adult Aspirin Regimen) pantoprazole 40 mg tablet,delayed 40 mg PO DAILY 01/10/21 10/30/22 History release loperamide 2 mg capsule (Imodium 2 mg PO Q6H PRN Diarrhea 04/18/22 Unknown History A-D) sertraline 50 mg tablet 50 mg PO DAILY 04/18/22 Unknown Hi story tramadol 50 mg tablet 25 - 50 mg PO TID PRN PRN pain Unknown History gabapentin 100 mg capsule 100 mg PO DAILY 12/07/23 Unknown H istory metoprolol tartrate 25 mg tablet 25 mg PO BID #180 tabs 01/28/24 Un known Rx levothyroxine 100 mcg tablet 100 mcg PO DAILY 02/17/24 Unknown History amlodipine 5 mg tablet 5 mg PO DAILY #90 TABLETS 04/04/24 Unknown Rx nitroglycerin 0.4 mg sublingual 0.4 mg sublingual Q5-15M #30 tabs 04/10/24 Unknown Rx tablet spironolactone 25 mg tablet 25 mg PO DAILY #90 tabs 07/14/24 U nknown Rx Allergy/AdvReac Type Severity Reaction Status Date / Time atorvastatin (From Lipitor) AdvReac myalgia Verified 10/06/24 13:08 oxycodone (From Percocet) AdvReac Unknown Verified 10/06/24 13:08 propoxyphene (From AdvReac Unknown Verified 10/06/24 13:08 Darvocet-N 100) Family History Father Heart disease CAD (coronary artery disease) Mother Heart disease Diabetes CVA (cerebral vascular accident) CAD (coronary artery disease) Surgical History History of loop recorder (05/05/19) History of thoracentesis History of appendectomy History of cataract surgery History of total knee arthroplasty History of bowel resection Hx of cholecystectomy History of left heart catheterization (03/23/17) History of hysterectomy History of spinal surgery History of hemiarthroplasty of left hip History of coronary artery stent placement (05/31/12) Social History household members: spouse housing: house Smoking Status: Never smoker alcohol intake: never substance use type: does not use ROS ROS ED Constitutional Constitutional ED: Denies chills, fever(s) or sweats ENT ENT ED: Denies sore throat Cardiovascular Cardiovascular: Denies chest pain, leg edema, palpitations or racing heartbeat Respiratory/Chest Respiratory/Chest: Reports cough; Denies dyspnea or dyspnea on exertion Gastrointestinal Gastrointestinal: Denies abdominal pain, diarrhea, nausea or vomiting Genitourinary Genitourinary ED: Denies dysuria, hematuria or urinary frequency Musculoskeletal Musculoskeletal: Reports back pain and extremity pain; Denies neck pain Integumentary Denies rash or wounds Neurologic (more content not included)... Normal [facility] Eosinophil percentageOrdered By: Benito Romero on 10-05-2024 Eosinophils/100 WBC (Bld) 0.9 % 0-5 [facility] Erythrocyte distribution wid th (RBC) [Ratio]Ordered By: Benito Romero on 10-05-2024 Erythrocyte distribution width (RBC) [Entitic vol] 43.2 fL 35.1-43.9 [facility] Erythrocyte distribution wid th ratioOrdered By: Benito Romero on 10-05-2024 Erythrocyte distribution width (RBC) [Ratio] 12.5 % 11.6-14.6 [facility] Erythrocyte distribution wid th standard deviationOrdered By: Benito Romero on 10-05-2024 Erythrocyte distribution width (RBC) [Ratio] 43.2 fl 35.1-43.9 [facility] Estimated glomerular filtrat ion rate (GFR) AmericanOrdered By: Benito Romero on 10-05-2024 Estimated GFR (MDRD) Amer 65 mL/min >60 [facility] Comment on above: GFR Calc Estimation of creatinine jovani aranceOrdered By: Benito Romero on 10-05-2024 Estimated Creatinine Clearance Calc 30.27 ml/min [facility] Femur Min 2 Viewson 10-05-19 25 Femur Min 2 Views [facility] Imaging Services [address] [place] [address] Femur Min 2 Views MR#: [id number] Acct: [id number] Name: RADHA MAYERS Rep #: [id number] : 1935 89 From: Rehan Dimas MD PCP: Dr. Rehan Lucero DO Status: REG ER Study: Femur Min 2 Views Date of Exam: 10/05/24 Exam# [id number] Ordering Dr: Benito Romero DO PROCEDURE: FEMUR MIN 2 VIEWS REASON FOR EXAM: Fall, left leg pain TECHNIQUE: 2 view(s) of left femur 4 total images to include the entire femur AP and lateral views COMPARISON: None. FINDINGS: LEFT FEMUR: No fracture. Status post left hip replacement, appears within limits. Vascular calcifications. RAD/Femur Min 2 Views IMPRESSION: No fracture Reading Location: [facility] CC: Dr. Rehan Lucero DO; Dr. Benito Romero DO [place]: Signed Normal [facility] Foot min 3 Viewson 5 Foot min 3 Views [facility] Imaging Services [facility] [place] [address] Foot min 3 Views MR#: [id number] Acct: [id number] Name: RADHA MAYERS Rep #: [id number] : 1935 F 89 From: Rehan Dimas MD PCP: Dr. Rehan Lucero DO Status: REG ER Study: Foot min 3 Views Date of Exam: 10/05/24 Exam# [id number] Ordering Dr: Benito Romero DO PROCEDURE: FOOT MIN 3 VIEWS REASON FOR EXAM: Injury, fall TECHNIQUE: 3 views of left foot COMPARISON: None. FINDINGS: No acute fracture or dislocation. Osteopenia. Osteoarthrosis 1st and 5th metatarsophalangeal joint. Vascular calcifications. Enthesophyte formation Achilles side of the calcaneus. RAD/Foot min 3 Views IMPRESSION: No acute fracture or dislocation Reading Location: [facility] CC: Dr. Rehan Lucero DO; Dr. Benito Romero DO [place]: Signed Normal [facility] Glomerular filtration rate ( GFR) estimationOrdered By: Benito Romero on 10-05-2024 Estimated GFR (MDRD) Non-Af Amer 54 mL/min Low >60 [facility] Comment on above: Non- GFR Calc GFR/1.73 sq M.predicted among non-blacks MDRD (S/P/Bld) [Vol rate/Area] 54 mL/min/{1.73_m2} Low >60 [facility] Comment on above: Non- GFR Calc Glucose measurementOrdered B y: Benito Romero on 10-05-2024 Glucose [Mass/Vol] 122 mg/dL High 74-106 [facility] Comment on above: Fasting Glucose resu lt from 100 to 125 mg/dL suggests IMPAIRED HOMEOSTASIS per A.D.A. criteria. Hematocrit Auto (Bld) [Volum e fraction]Ordered By: Benito Romero on 10-05-2024 Hematocrit (Bld) [Volume fraction] 36.1 % Low 37-47 [facility] Hemoglobin measurementOrdere d By: Benito Romero on 10-05-2024 Hemoglobin (Bld) [Mass/Vol] 11.8 g/dL Low 12.0-15.0 [facility] Immature granulocytes/100 WB C Auto (Bld)Ordered By: Benito Romero on 10-05-2024 Immature granulocytes/100 WBC (Bld) 0.500 % 0.0-0.9 [facility] Comment on above: IG% - Immature Granu locytes (promyelocytes, myelocytes and metamyelocytes) > 1% indicates that a LEFT SHIFT is Present. Influenza virus A and B and SARS-CoV-2 (COVID-19) and Respiratory syncytial virus RNAOrdered By: Benito Romero on 10-05-2024 SARS-CoV-2 (COVID-19) RNA AUDELIA+probe Ql (Unsp spec) [facility] International normalized rat io (INR) calculationOrdered By: Benito Romero on 10-05-2024 INR Coag (Bld) [Relative time] 1.2 {INR} [facility] Knee 3 Viewson 10-05-2024 Knee 3 Views [facility] Imaging Services [address] [place], [place] [address] Knee 3 Views MR#: [id number] Acct: [id number] Name: RADHA MAYERS Rep #: [id number] : 1935 F 89 From: Rehan Dimas MD PCP: Dr. Rehan Lucero DO Status: REG ER Study: Knee 3 Views Date of Exam: 10/05/24 Exam# [id number] Ordering Dr: Benito Romero DO PROCEDURE: KNEE 3 VIEWS REASON FOR EXAM: Injury TECHNIQUE: 3 view(s) of the left knee AP, tunnel and lateral COMPARISON: None. FINDINGS: Acute fracture at the lower aspect of the patella without significant displacement seen on the lateral view with overlying soft tissue swelling and note of lipohemarthrosis. No other acute fracture identified. No dislocation. Osteoarthrosis appears greatest in the medial compartment with note of chondrocalcinosis. Vascular calcifications. RAD/Knee 3 Views IMPRESSION: Acute fracture at the lower aspect of the patella without significant displacement seen on the lateral view with overlying soft tissue swelling and note of lipohemarthrosis. Reading Location: [id number] CC: Dr. Rehan Lucero DO; Dr. Benito Romero DO [place]: Signed Normal [facility] Laboratory - Chemistry and C hemistry - challengeOrdered By: Benito Romero on 10-05-2024 AST [Catalytic activity/Vol] 17 U/L 15-37 [facility] Lymphocytes Auto (Unsp spec) [#/Vol]Ordered By: Benito Romero on 10-05-2024 Lymphocytes (Bld) [#/Vol] 0.85 10*3/uL 0.83-4.51 [facility] Lymphocytes/100 WBC Auto (Un sp spec)Ordered By: Benito Romero on 10-05-2024 Lymphocytes/100 WBC (Bld) 6.8 % Low 19-41 [facility] MCV (mean corpuscular volume ) determinationOrdered By: Benito Romero on 10-05-2024 MCV (RBC) [Entitic vol] 94.3 fL 81-99 [facility] Mean corpuscular hemoglobin (MCH) determinationOrdered By: Benito Romero on 10-05-2024 MCH (RBC) [Entitic mass] 30.8 pg 27.0-32.0 [facility] Mean corpuscular hemoglobin concentration (MCHC) determinationOrdered By: Benito Romero on 10-05-2024 MCHC (RBC) [Mass/Vol] 32.7 g/dL 32-36 [facility] Mean platelet volume determi nationOrdered By: Benito Romero on 10-05-2024 Platelet mean volume (Bld) [Entitic vol] 10.8 fL 6.2-12.0 [facility] Monocyte percentageOrdered B y: Benito Romero on 10-05-2024 Monocytes/100 WBC (Bld) 8.0 % 0-10 [facility] Neutrophil percentageOrdered By: Benito Romero on 10-05-2024 Neutrophils/100 WBC (Bld) 83.6 % High 47-70 [facility] Nucleated red blood cell per centageOrdered By: Benito Romero on 10-05-2024 Nucleated RBC/100 WBC (Bld) [Ratio] 0 % 0-5 [facility] Pelvis 1 or 2 Viewson 2024 Pelvis 1 or 2 Views [facility] Imaging Services [address] [place] [address] Pelvis 1 or 2 Views MR#: [id number] Acct: [id number] Name: RADHA MAYERS Rep #: [id number] : 1935 F 89 From: Rehan Dimas MD PCP: Dr. Rehan Lucero DO Status: REG ER Study: Pelvis 1 or 2 Views Date of Exam: 10/05/24 Exam# [id number] Ordering Dr: Benito Romero DO PROCEDURE: PELVIS 1 OR 2 VIEWS REASON FOR EXAM: Fall, left leg pain TECHNIQUE: 1 view(s) of the pelvis. AP view of the pelvis COMPARISON: None FINDINGS: No evidence of fracture or dislocation. Patient is rotated to the right. Status post left hip replacement with distal tip of femoral prosthesis extending off the inferior edge of the film. Vascular calcifications. RAD/Pelvis 1 or 2 Views IMPRESSION: No fracture identified. Reading Location: [facility] CC: Dr. Rehan Lucero, DO; Dr. Benito Romero, DO [place]: Signed Normal [facility] Platelet countOrdered By: Vijay Romero on 10-05-2024 Platelets (Bld) [#/Vol] 264 10*3/uL 150-450 [facility] Potassium measurementOrdered By: Benito Romero on 10-05-2024 Potassium [Moles/Vol] 4.1 mmol/L 3.5-5.1 [facility] Prothrombin timeOrdered By: Benito Romero on 10-05-2024 PT Coag (PPP) [Time] 15.8 s High 11.7-14.9 [facility] RBC Auto (Bld) [#/Vol]Ordere d By: Benito Romero on 10-05-2024 RBC (Bld) [#/Vol] 3.83 10*6/uL Low 4.2-5.4 [facility] Serum anion gap measurementO rdered By: Benito Romero on 10-05-2024 Anion gap [Moles/Vol] 7 mmol/L 5-15 [facility] Serum globulin measurementOr dered By: Benito Romero on 10-05-2024 Globulin (S) [Mass/Vol] 3.6 g/dL 2.2-4.2 [facility] Serum or plasma alanine saleem otransferase (ALT) measurementOrdered By: Benito Romero on 10-05-2024 ALT [Catalytic activity/Vol] 13 U/L 13-56 [facility] Serum or plasma albumin kailyn urement (mass/volume)Ordered By: Benito Romero on 10-05-2024 Albumin [Mass/Vol] 3.4 g/dL 3.2-5.0 [facility] Serum or plasma alkaline leanne sphatase measurementOrdered By: Benito Romero on 10-05-2024 ALP [Catalytic activity/Vol] 45 U/L 45-117 [facility] Serum or plasma calcium kailyn urement (mass/volume)Ordered By: Benito Romero on 10-05-2024 Calcium [Mass/Vol] 9.1 mg/dL 8.5-10.1 [facility] Serum or plasma creatinine m easurement (mass/volume)Ordered By: Benito Romero on 10-05-2024 Creatinine [Mass/Vol] 1.03 mg/dL High 0.55-1.02 [facility] Comment on above: The validity of the calculated GFR & GFRAA in patients over 70 years has not been determined. Clinical correlation is essential. Serum or plasma urea nitroge n measurement (mass/volume)Ordered By: Benito Romero on 10-05-2024 Urea nitrogen [Mass/Vol] 21 mg/dL High 7-18 [facility] Sodium levelOrdered By: Benito Romero on 10-05-2024 Sodium [Moles/Vol] 136 mmol/L 136-145 [facility] Spine Cervical without Contr ason 10-05-2024 Spine Cervical without Contras [facility] Imaging Services [address] [place] [id number] Spine Cervical without Contras MR#: [id number] Acct: [id number] Name: RADHA MAYERS Rep #: [id number] : 1935 F 89 From: Rehan Dimas MD PCP: Dr. Rehan Lucero DO Status: REG ER Study: Spine Cervical without Contras Date of Exam: 0 10/05/24 Exam# [id number] Ordering Dr: Benito Romero DO PROCEDURE: SPINE CERVICAL WITHOUT CONTRAS REASON FOR EXAM: Injury, fall Sunday, chronic pain TECHNIQUE: Cervical spine CT without contrast. COMPARISON: None. FINDINGS: No fracture. Accentuated lordosis with 2 mm of anterolisthesis C4 on C5. No prevertebral soft tissue swelling. Multilevel spondylosis/discogeni c change. Bilateral carotid calcific plaque formation. CT/Spine Cervical without Contras IMPRESSION: No fracture. Accentuated lordosis with 2 mm of anterolisthesis C4 on C5. No prevertebral soft tissue swelling. Multilevel spondylosis/discogeni c change. One or more dose reduction techniques were used (e.g., Automated exposure control, adjustment of the mA and/or kV according to patient size, use of iterative reconstruction technique). Reading Location: [facility] CC: Dr. Rehan Lucero DO; Dr. Benito Romero DO [place]: Signed Normal [facility] Spine Lumbar without Contras ton 10-05-2024 Spine Lumbar without Contrast [facility] Imaging Services [address] [place] [address] Spine Lumbar without Contrast MR#: [id number] Acct: [id number] Name: RADHA MAYERS Rep #: [id number] : 1935 F 89 From: Rehan Dimas MD PCP: Dr. Rehan Lucero DO Status: REG ER Study: Spine Lumbar without Contrast Date of Exam: Exam# [id number] Ordering Dr: Benito Romero DO PROCEDURE: SPINE LUMBAR WITHOUT CONTRAST REASON FOR EXAM: Injury, fall, chronic pain . TECHNIQUE: Lumbar spine CT without contrast. Coronal and sagittal reformatted images CONTRAST: None COMPARISON: None. FINDINGS: 5 xgl-quk-gwydico lumbar vertebral type bodies. No acute fracture or malalignment. L1 vertebroplasty. Osteopenia. Inferior endplate compression deformity L2, L3 and superior endplate at L5 without associated acute fracture plane identified. Multilevel spondylosis/discogeni c change. Bilateral degenerative sacroiliac changes appears greater on the left. The patient is status post cholecystectomy with apparent intrahepatic biliary ductal dilation which may represent reservoir effect, post cholecystectomy biliary ectasia may correlate further with follow-up LFTs and alkaline phosphatase and may consider additional imaging as warranted. Appearance of left renal atrophy and suggestion of left-sided renal possible cysts. May follow-up with nonemergent renal ultrasound to further characterize as warranted. Aortoiliac atherosclerotic calcifications. [place] artifact from left hip replacement. CT/Spine Lumbar without Contrast IMPRESSION: No acute fracture or malalignment identified. Multilevel endplate compression deformities without associated acute visualized fracture plane. Status post L1 vertebroplasty. Incidental findings as described above. One or more dose reduction techniques were used (e.g., Automated exposure control, adjustment of the mA and/or kV according to patient size, use of iterative reconstruction technique). Reading Location: [facility] CC: Dr. Rehan Lucero DO; Dr. Benito Romero DO [place]: Signed Normal [facility] Spine Thoracic without Contr ason 10-05-2024 Spine Thoracic without Contras [facility] Imaging Services [address] [place] [address] Spine Thoracic without Contras MR#: [id number] Acct: [id number] Name: RADHA MAYERS Rep #: [id number] : 1935 F 89 From: Rehan Dimas MD PCP: Dr. Rehan Lucero DO Status: REG ER Study: Spine Thoracic without Contras Date of Exam: 0 10/05/24 Exam# [id number] Ordering Dr: Benito Romero DO PROCEDURE: SPINE THORACIC WITHOUT CONTRAS REASON FOR EXAM: Injury, fall Sunday, chronic pain TECHNIQUE: Thoracic spine CT without intravenous contrast. With coronal and sagittal reformatted images CONTRAST: None COMPARISON: Thoracic spine x-ray 03/08/2023. FINDINGS: No acute fracture or malalignment. Accentuated thoracic kyphosis. Multilevel biconcave appearing vertebral body compression deformities with loss of vertebral body height overall similar appearance to the previous thoracic spine radiograph without convincing evidence of interval increase in vertebral body height loss. Multilevel vertebroplasties again noted. Some extravasation of methylmethacrylate is seen within the right side of the spinal canal at the T7 level. No pneumothorax visualized within the partially imaged lungs. A few scattered bandlike opacities may represent atelectasis or scarring. Small focus of mucus or secretions at the dependent portion of the right mainstem bronchus for example axial 52. 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 Atherosclerotic vascular calcifications. Coronary calcification and/or stents. No evidence of pericardial or pleural effusion identified. Fjjqmats-li-olajc appearing hiatal hernia with air-fluid level in the upper esophagus. CT/Spine Thoracic without Contras IMPRESSION: No acute fracture or malalignment identified. Multilevel compression deformities and previous vertebroplasties as described in detail above overall similar appearance to preceding radiograph. One or more dose reduction techniques were used (e.g., Automated exposure control, adjustment of the mA and/or kV according to patient size, use of iterative reconstruction technique). Reading Location: [facility] CC: Dr. Rehan Lucero DO; Dr. Benito Romero DO [place]: Signed Normal [facility] Total proteinOrdered By: Marino Romero on 10-05-2024 Protein [Mass/Vol] 7.0 g/dL 6.4-8.2 [facility] White blood cell (WBC) count Ordered By: Benito Romero on 10-05-2024 WBC (Bld) [#/Vol] 12.5 10*3/uL High 4.4-11.0 [facility] aPTT Coag (PPP) [Time]Ordere d By: Benito Romero on 10-05-2024 aPTT Coag (Bld) [Time] 29.0 s 24.1-36.2 [facility] XR CHEST 2 VIEWSon 4 XR CHEST 2 VIEWS ORIGINAL EXAMINATION: TWO XRAY VIEWS OF THE CHEST06/17/2024 3:22 pm COMPARISON: 08/26/2021 HISTORY: ORDERING SYSTEM PROVIDED HISTORY: Reason for Exam: shortness of breath FINDINGS: The heart size is normal.Coronary artery stents seen. There is no pulmonary consolidation. No pneumothorax or pleural effusion. Exaggerated thoracic kyphosis. Multiple compression deformities identified. There also numerous vertebral augmentations. Overall, findings are grossly similar to the prior exam. Upper thoracic spine is not evaluated in detail.Bilateral rib deformities are similar to the prior exam. IMPRESSION: 1. No acute radiographic finding. Multiple compression deformities and vertebral augmentations are similar to the prior exam. Interpreted by: Mark Poole MD Preliminary Report By: Mark Poole MD Electronically signed By Mark Poole MD Dictated Date: 06/18/2024 11:14:15 AM Prelim Date: 06/18/2024 11:15:49 AM Sign Date: 06/18/2024 11:15:49 AM Ordering Provider: LEXIE VARGHESE [facility] Basophil percentageOrdered B y: Autumn Haas on 12-10-2023 Chloride [Moles/Vol] 109 mmol/L 98-107 [facility] Glucose [Mass/Vol] 128 mg/dL 74-106 [facility] Comment on above: Fasting Glucose resu lt greater than or equal to 126 mg/dL suggests DIABETES MELLITUS per A.D.A. criteria. Potassium [Moles/Vol] 4.4 mmol/L 3.5-5.1 [facility] Sodium [Moles/Vol] 139 mmol/L 136-145 [facility] Laboratory - Chemistry and C hemistry - challengeOrdered By: Autumn Haas on 12-10-2023 CO2 [Moles/Vol] 26.0 mmol/L 21.0-32.0 [facility] Urea nitrogen/Creatinine [Mass ratio] 23.9 mg/mg 10-20 [facility] No Panel InformationOrdered By: Autumn Haas on 12-10-2023 Estimated GFR (MDRD) Amer 40 mL/min >60 [facility] Comment on above: GFR Calc Estimated GFR (MDRD) Non-Af Amer 33 mL/min >60 [facility] Comment on above: Non- GFR Calc Serum or plasma calcium kailyn urement (mass/volume)Ordered By: Autumn Haas on 12-10-2023 Calcium [Mass/Vol] 9.2 mg/dL 8.5-10.1 [facility] Serum or plasma creatinine m easurement (mass/volume)Ordered By: Autumn Haas on 12-10-2023 Creatinine [Mass/Vol] 1.59 mg/dL 0.55-1.02 [facility] Comment on above: The validity of the calculated GFR & GFRAA in patients over 70 years has not been determined. Clinical correlation is essential. Serum or plasma urea nitroge n measurement (mass/volume)Ordered By: Autumn Haas on 12-10-2023 Urea nitrogen [Mass/Vol] 38 mg/dL 7-18 [facility] Thin prep Papanicolaou smear with manual screeningOrdered By: Autumn Haas on 12-10-2023 Thin prep Papanicolaou smear with manual screening 4 5-15 [facility] Absolute lymphocyte countOrd ered By: Autumn Haas on 12-07-2023 Lymphocytes Auto (Unsp spec) [#/Vol] 1.09 10*3/uL 0.83-4.51 [facility] Automated lymphocyte count a s percentage of total leukocytesOrdered By: Autumn Haas on 12-07-2023 Lymphocytes/100 WBC Auto (Unsp spec) 19.8 % 19-41 [facility] Basophil percentageOrdered B y: Autumn Haas on 12-07-2023 Basophils/100 WBC (Bld) 0.5 % 0-1 [facility] Chloride [Moles/Vol] 109 mmol/L 98-107 [facility] Eosinophils/100 WBC (Bld) 1.5 % 0-5 [facility] Glucose [Mass/Vol] 100 mg/dL 74-106 [facility] Comment on above: Fasting Glucose resu lt from 100 to 125 mg/dL suggests IMPAIRED HOMEOSTASIS per A.D.A. criteria. Hemoglobin (Bld) [Mass/Vol] 11.9 g/dL 12.0-15.0 [facility] Monocytes/100 WBC (Bld) 9.6 % 0-10 [facility] Neutrophils (Bld) [#/Vol] 3.8 10*3/uL 2.0-7.7 [facility] Neutrophils/100 WBC (Bld) 68.4 % 47-70 [facility] Potassium [Moles/Vol] 5.7 mmol/L 3.5-5.1 [facility] Sodium [Moles/Vol] 137 mmol/L 136-145 [facility] WBC (Bld) [#/Vol] 5.5 10*3/uL 4.4-11.0 [facility] Determination of erythrocyte mean corpuscular volume (MCV)Ordered By: Autumn Haas on 12-07-2023 MCV (RBC) [Entitic vol] 94.2 fL 81-99 [facility] Erythrocyte distribution wid th ratioOrdered By: Autumn Haas on 12-07-2023 Erythrocyte distribution width (RBC) [Ratio] 13.1 % 11.6-14.6 [facility] Erythrocyte distribution wid th standard deviationOrdered By: Autumn Haas on 12-07-2023 Erythrocyte distribution width (RBC) [Entitic vol] 45.4 fL 35.1-43.9 [facility] Hematocrit Auto (Bld) [Volum e fraction]Ordered By: Autumn Haas on 12-07-2023 Hematocrit (Bld) [Volume fraction] 37.6 % 37-47 [facility] Immature granulocytes/100 WB C Auto (Bld)Ordered By: Autumn Haas on 12-07-2023 Immature granulocytes/100 WBC (Bld) 0.200 % 0.0-0.9 [facility] Comment on above: IG% - Immature Granu locytes (promyelocytes, myelocytes and metamyelocytes) > 1% indicates that a LEFT SHIFT is Present. Laboratory - Chemistry and C hemistry - challengeOrdered By: Autumn Haas on 12-07-2023 CO2 [Moles/Vol] 25.0 mmol/L 21.0-32.0 [facility] Urea nitrogen/Creatinine [Mass ratio] 21.1 mg/mg 10-20 [facility] Laboratory - Hematology and Cell countsOrdered By: Autumn Haas on 12-07-2023 MCH (RBC) [Entitic mass] 29.8 pg 27.0-32.0 [facility] MCHC (RBC) [Mass/Vol] 31.6 g/dL 32-36 [facility] Nucleated RBC/100 WBC (Bld) [Ratio] 0 % 0-5 [facility] Platelet mean volume (Bld) [Entitic vol] 12.1 fL 6.2-12.0 [facility] Platelets (Bld) [#/Vol] 223 10*3/uL 150-450 [facility] No Panel InformationOrdered By: Autumn Haas on 12-07-2023 Estimated GFR (MDRD) Amer 36 mL/min >60 [facility] Comment on above: GFR Calc Estimated GFR (MDRD) Non-Af Amer 30 mL/min >60 [facility] Comment on above: Non- GFR Calc Vitamin D 25-Hydroxy 28.2 ng/mL [facility] Comment on above: Vitamin D 25(OH) Sta tus Range Deficiency <20 ng/mL (50nmol/L) Insufficiency 20 - 30 ng/mL (50 - 75 nmol/L) Sufficiency 30 - 100 ng/mL (75 - 250 nmol/L) Toxicity >100 ng/mL (>250 nmol/L) RBC Auto (Bld) [#/Vol]Ordere d By: Autumn Haas on 12-07-2023 RBC (Bld) [#/Vol] 3.99 10*6/uL 4.2-5.4 [facility] Serum or plasma calcium kailyn urement (mass/volume)Ordered By: Autumn Haas on 12-07-2023 Calcium [Mass/Vol] 9.4 mg/dL 8.5-10.1 [facility] Serum or plasma creatinine m easurement (mass/volume)Ordered By: Autumn Haas on 12-07-2023 Creatinine [Mass/Vol] 1.71 mg/dL 0.55-1.02 [facility] Comment on above: The validity of the calculated GFR & GFRAA in patients over 70 years has not been determined. Clinical correlation is essential. Serum or plasma thyroid stim ulating hormone (TSH) measurement (units/volume)Ordered By: Autumn Haas on 12-07-2023 TSH Qn 0.20 uIU/mL 0.358-3.74 [facility] Serum or plasma urea nitroge n measurement (mass/volume)Ordered By: Autumn Haas on 12-07-2023 Urea nitrogen [Mass/Vol] 36 mg/dL 7-18 [facility] Thin prep Papanicolaou smear with manual screeningOrdered By: Autumn Haas on 12-07-2023 Thin prep Papanicolaou smear with manual screening 3 5-15 [facility] BD BONE DENSITY DEXA AXIAL S KELETONon 08-21-2023 BD BONE DENSITY DEXA AXIAL SKELETON ORIGINAL EXAMINATION: BONE DENSITOMETRY 08/21/2023 2:42 pm TECHNIQUE: A bone density dual x-ray absorptiometry (DEXA) scan was performed of the axial (e.g. hips, spine) and/or appendicular (e.g. radius) skeleton as appropriate. COMPARISON: 07/11/2021. HISTORY: ORDERING SYSTEM PROVIDED HISTORY: Reason for Exam: Osteoporosis Screening FINDINGS: T Score Right Femoral Neck: -3.3 Right Femoral Neck: 0.486 (g/cm2) T Score Right Hip: -3.6 Right Hip: 0.499 (g/cm2) T Score Right Forearm: -4.2 Right Forearm: 0.439 (g/cm2) BMD change from previous hip:-7.8% BMD change from previous forearm: 1.9% IMPRESSION: Osteoporosis by WHO criteria. World Health Organization criteria: (Comparing with young normal sex matched population) - Normal: T-score at or above -1 SD (standard deviation) - Osteopenia: T-score between -1 and -2.5 SD - Osteoporosis: T-score at or below -2.5 SD The NOF recommends that FDA-approved medical therapies be considered in post-menopausal women and men age >/= 50 years with a: * Hip or vertebral fracture, or * T-score of /= 20% for major osteoporotic fractures or * >/= 3% for hip fractures All treatment decisions require clinical judgement and consideration of individual patient factors, including patient preferences, comorbidities, previous drug use, risk factors not captured in the FRAX registered model (e.g., frailty, falls, vitamin D deficiency, increased bone turnover, interval significant decline in bone density) and possible under- or over-estimation of fracture risk by FRAX. Interpreted by: Ty Montana DO Preliminary Report By: Ty Montana DO Electronically signed By Ty Montana DO Dictated Date: 08/21/2023 3:25:01 PM Prelim Date: 08/21/2023 3:26:48 PM Sign Date: 08/21/2023 3:26:48 PM Ordering Provider: REHAN LUCERO [facility] ([place]) Barber 05-14-2023 Potassium [Moles/Vol] 4.9 mmol/L Normal 3.5-5.1 [facility] ([place]) Comment on above: Performed By: #### K #### [place] [address] LABORATORYOrdered By: SYSTEM SYSTEM on 05-14-2023 Potassium [Moles/Vol] 4.9 mmol/L Invalid Interpretation Code 3.5 - 5.1 mmol/L AO ADM SS .GFRon 05-09-2023 GFR Non- 34 ml/min/1.73sqm [facility] ([place]) Comment on above: Result Comment: GFR Population mean for , Non- Americans Ages 20-29 = 116 mL/min/1.73 sq.m. Ages 30-39 = 107 mL/min/1.73 sq.m. Ages 40-49 = 99 mL/min/1.73 sq.m. Ages 50-59 = 93 mL/min/1.73 sq.m. Ages 60-69 = 85 mL/min/1.73 sq.m. Ages 70+ = 75 mL/min/1.73 sq.m. Chronic Kidney Disease: Less than 60 mL/min/1.73 square meters End Stage Renal Disease: Less than 15 mL/min/1.73 square meters Performed By: #### B MP, TSH, GFR #### [address] [address] GFR 41 ml/min/1.73sqm Normal [facility] ([place]) Comment on above: Result Comment: GFR Population mean for , Non- Americans Ages 20-29 = 116 mL/min/1.73 sq.m. Ages 30-39 = 107 mL/min/1.73 sq.m. Ages 40-49 = 99 mL/min/1.73 sq.m. Ages 50-59 = 93 mL/min/1.73 sq.m. Ages 60-69 = 85 mL/min/1.73 sq.m. Ages 70+ = 75 mL/min/1.73 sq.m. Chronic Kidney Disease: Less than 60 mL/min/1.73 square meters End Stage Renal Disease: Less than 15 mL/min/1.73 square meters Performed By: #### B MP, TSH, GFR #### [address] [address] BMPon 05-09-2023 BUN/Creatinine Ratio 18 ratio Normal 7-27 [facility] ([place]) Comment on above: Performed By: #### B MP, TSH, GFR #### [address] [address] Calcium [Mass/Vol] 9.0 mg/dL Normal 8.4-10.2 [facility] ([place]) Comment on above: Performed By: #### B MP, TSH, GFR #### [address] [address] Chloride [Moles/Vol] 105 mmol/L Normal 98-107 [facility] ([place]) Comment on above: Performed By: #### B MP, TSH, GFR #### [address] [address] CO2 [Moles/Vol] 24 mmol/L Normal 23-31 [facility] ([place]) Comment on above: Performed By: #### B MP, TSH, GFR #### [address] [address] Creatinine [Mass/Vol] 1.47 mg/dL High 0.55-1.02 [facility] ([place]) Comment on above: Performed By: #### B MP, TSH, GFR #### [address] [address] Electrolyte Balance 10.0 mEq/L Normal 4.0-15.0 [facility] ([place]) Comment on above: Performed By: #### B MP, TSH, GFR #### [address] [address] Glucose [Mass/Vol] 94 mg/dL Normal 83-110 [facility] ([place]) Comment on above: Performed By: #### B MP, TSH, GFR #### [address] [address] Potassium [Moles/Vol] 5.7 mmol/L High 3.5-5.1 [facility] ([place]) Comment on above: Performed By: #### B MP, TSH, GFR #### [address] [address] Sodium [Moles/Vol] 139 mmol/L Normal 136-145 [facility] ([place]) Comment on above: Performed By: #### B MP, TSH, GFR #### [address] [address] Urea nitrogen [Mass/Vol] 27 mg/dL High 7-18 [facility] ([place]) Comment on above: Performed By: #### B MP, TSH, GFR #### [address] [address] LABORATORYOrdered By: SYSTEM SYSTEM on 05-09-2023 Calcium [Mass/Vol] 9.0 mg/dL Invalid Interpretation Code 8.4 - 10.2 mg/dL AO ADM SS Chloride [Moles/Vol] 105 mmol/L Invalid Interpretation Code 98 - 107 mmol/L AO ADM SS CO2 [Moles/Vol] 24 mmol/L Invalid Interpretation Code 23 - 31 mmol/L AO ADM SS Creatinine [Mass/Vol] 1.47 mg/dL Invalid Interpretation Code 0.55 - 1.02 mg/dL AO ADM SS Electrolyte Balance 10.0 mEq/L Invalid Interpretation Code 4.0 - 15.0 mEq/L AO ADM SS GFR/1.73 sq M.predicted among blacks MDRD (S/P/Bld) [Vol rate/Area] 41 ml/min/1.73sqm Invalid Interpretation Code AO Chemistry S Comment on above: Interpretive Data: GFR Population mean for , Non- Americans Ages 20-29 = 116 mL/min/1.73 sq.m. Ages 30-39 = 107 mL/min/1.73 sq.m. Ages 40-49 = 99 mL/min/1.73 sq.m. Ages 50-59 = 93 mL/min/1.73 sq.m. Ages 60-69 = 85 mL/min/1.73 sq.m. Ages 70+ = 75 mL/min/1.73 sq.m. Chronic Kidney Disease: Less than 60 mL/min/1.73 square meters End Stage Renal Disease: Less than 15 mL/min/1.73 square meters GFR/1.73 sq M.predicted among non-blacks MDRD (S/P/Bld) [Vol rate/Area] 34 ml/min/1.73sqm Invalid Interpretation Code AO Chemistry S Comment on above: Interpretive Data: GFR Population mean for , Non- Americans Ages 20-29 = 116 mL/min/1.73 sq.m. Ages 30-39 = 107 mL/min/1.73 sq.m. Ages 40-49 = 99 mL/min/1.73 sq.m. Ages 50-59 = 93 mL/min/1.73 sq.m. Ages 60-69 = 85 mL/min/1.73 sq.m. Ages 70+ = 75 mL/min/1.73 sq.m. Chronic Kidney Disease: Less than 60 mL/min/1.73 square meters End Stage Renal Disease: Less than 15 mL/min/1.73 square meters Glucose [Mass/Vol] 94 mg/dL Invalid Interpretation Code 83 - 110 mg/dL AO ADM SS Potassium [Moles/Vol] 5.7 mmol/L Invalid Interpretation Code 3.5 - 5.1 mmol/L AO ADM SS Sodium [Moles/Vol] 139 mmol/L Invalid Interpretation Code 136 - 145 mmol/L AO ADM SS TSH Qn 1.47 m[IU]/L Invalid Interpretation Code 0.36 - 3.74 mcIU/mL AO ADM SS Urea nitrogen [Mass/Vol] 27 mg/dL Invalid Interpretation Code 7 - 18 mg/dL AO ADM SS Urea nitrogen/Creatinine [Mass ratio] 18 ratio Invalid Interpretation Code 7 - 27 ratio AO ADM SS TSHon 05-09-2023 TSH Qn 1.47 m[IU]/L Normal 0.36-3.74 [facility] ([place]) Comment on above: Performed By: #### B MP, TSH, GFR #### [id number] [place], [place] [address] Basophil percentageOrdered B y: Scottie Kim on 01-24-2023 Basophil percentage 3.1 mg/dL 2.5-4.9 [facility] Chloride [Moles/Vol] 111 mmol/L 98-107 [facility] Glucose [Mass/Vol] 89 mg/dL 74-106 [facility] Potassium [Moles/Vol] 4.7 mmol/L 3.5-5.1 [facility] Sodium [Moles/Vol] 139 mmol/L 136-145 [facility] Laboratory - Chemistry and C hemistry - challengeOrdered By: Scottie Kim on 01-24-2023 CO2 [Moles/Vol] 25.0 mmol/L 21.0-32.0 [facility] Urea nitrogen/Creatinine [Mass ratio] 30.0 mg/mg 10-20 [facility] No Panel InformationOrdered By: Scottie Kim on 01-24-2023 Parathyroid Hormone (Intact) 153.3 pg/mL 18.4-80.1 [facility] Estimated GFR (MDRD) Amer 46 mL/min >60 [facility] Comment on above: GFR Calc Estimated GFR (MDRD) Non-Af Amer 38 mL/min >60 [facility] Comment on above: Non- GFR Calc Serum or plasma albumin kailyn urement (mass/volume)Ordered By: Scottie Kim on 01-24-2023 Albumin [Mass/Vol] 3.9 g/dL 3.2-5.0 [facility] Serum or plasma calcium kailyn urement (mass/volume)Ordered By: Scottie Kim on 01-24-2023 Calcium [Mass/Vol] 9.2 mg/dL 8.5-10.1 [facility] Serum or plasma creatinine m easurement (mass/volume)Ordered By: Scottie Kim on 01-24-2023 Creatinine [Mass/Vol] 1.40 mg/dL 0.55-1.02 [facility] Comment on above: The validity of the calculated GFR & GFRAA in patients over 70 years has not been determined. Clinical correlation is essential. Serum or plasma urea nitroge n measurement (mass/volume)Ordered By: Scottie Kim on 01-24-2023 Urea nitrogen [Mass/Vol] 42 mg/dL 7-18 [facility] No Panel InformationOrdered By: Dr. Neff on 01-03-2023 Troponin I High Sensitivity 8 pg/mL 3.0-54.0 [facility] Comment on above: Please Note: New [place]uge[place] t Units and Gender Specific Reference Ranges. For more information see Policy Stat Procedure [place] High Sensitivity Troponin (TNIH) and attachments. Absolute lymphocyte countOrd ered By: Dr. Neff on 01-02-2023 Lymphocytes Auto (Unsp spec) [#/Vol] 1.22 10*3/uL 0.83-4.51 [facility] Basophil percentageOrdered B y: Dr. Neff on 01-02-2023 Basophils/100 WBC (Bld) 0.4 % 0-1 [facility] Chloride [Moles/Vol] 109 mmol/L 98-107 [facility] Eosinophils/100 WBC (Bld) 3.5 % 0-5 [facility] Glucose [Mass/Vol] 117 mg/dL 74-106 [facility] Comment on above: Fasting Glucose resu lt from 100 to 125 mg/dL suggests IMPAIRED HOMEOSTASIS per A.D.A. criteria. Neutrophils (Bld) [#/Vol] 3.4 10*3/uL 2.0-7.7 [facility] Neutrophils/100 WBC (Bld) 61.7 % 47-70 [facility] Potassium [Moles/Vol] 4.0 mmol/L 3.5-5.1 [facility] Sodium [Moles/Vol] 141 mmol/L 136-145 [facility] WBC (Bld) [#/Vol] 5.4 10*3/uL 4.4-11.0 [facility] Blood erythrocytes count (nu mber/volume)Ordered By: Dr. Neff on 01-02-2023 RBC (Bld) [#/Vol] 3.84 10*6/uL 4.2-5.4 [facility] Blood hemoglobin measurement (mass/volume)Ordered By: Dr. Neff on 01-02-2023 Hemoglobin (Bld) [Mass/Vol] 11.6 g/dL 12.0-15.0 [facility] Blood lymphocytes/100 leukoc ytesOrdered By: Dr. Neff on 01-02-2023 Lymphocytes/100 WBC (Bld) 22.4 % 19-41 [facility] Blood monocytes/100 leukocyt esOrdered By: Dr. Neff on 01-02-2023 Monocytes/100 WBC (Bld) 11.8 % 0-10 [facility] Blood platelet mean volumeOr dered By: Dr. Neff on 01-02-2023 Platelet mean volume (Bld) [Entitic vol] 11.1 fL 6.2-12.0 [facility] Determination of erythrocyte mean corpuscular volume (MCV)Ordered By: Dr. Neff on 01-02-2023 MCV (RBC) [Entitic vol] 95.1 fL 81-99 [facility] Hematocrit Auto (Bld) [Volum e fraction]Ordered By: Dr. Neff on 01-02-2023 Hematocrit (Bld) [Volume fraction] 36.5 % 37-47 [facility] Laboratory - Chemistry and C hemistry - challengeOrdered By: Dr. Neff on 01-02-2023 CO2 [Moles/Vol] 26.0 mmol/L 21.0-32.0 [facility] Urea nitrogen/Creatinine [Mass ratio] 21.6 mg/mg 10-20 [facility] Laboratory - Hematology and Cell countsOrdered By: Dr. Neff on 01-02-2023 Erythrocyte distribution width (RBC) [Entitic vol] 45.7 fL 35.1-43.9 [facility] Erythrocyte distribution width (RBC) [Ratio] 13.2 % 11.6-14.6 [facility] Immature granulocytes/100 WBC (Bld) 0.200 % 0.0-0.9 [facility] Comment on above: IG% - Immature Granu locytes (promyelocytes, myelocytes and metamyelocytes) > 1% indicates that a LEFT SHIFT is Present. MCH (RBC) [Entitic mass] 30.2 pg 27.0-32.0 [facility] Nucleated RBC/100 WBC (Bld) [Ratio] 0 % 0-5 [facility] MCHC Auto (RBC) [Mass/Vol]Or dered By: Dr. Neff on 01-02-2023 MCHC (RBC) [Mass/Vol] 31.8 g/dL 32-36 [facility] No Panel InformationOrdered By: Dr. Neff on 01-02-2023 Estimated Creatinine Clearance Calc 31.59 ml/min [facility] Estimated GFR (MDRD) Amer 60 mL/min >60 [facility] Comment on above: GFR Calc Estimated GFR (MDRD) Non-Af Amer 50 mL/min >60 [facility] Comment on above: Non- GFR Calc Platelets bldOrdered By: Dr. Neff on 01-02-2023 Platelets (Bld) [#/Vol] 217 10*3/uL 150-450 [facility] Serum or plasma calcium kailyn urement (mass/volume)Ordered By: Dr. Neff on 01-02-2023 Calcium [Mass/Vol] 8.7 mg/dL 8.5-10.1 [facility] Serum or plasma creatinine m easurement (mass/volume)Ordered By: Dr. Neff on 01-02-2023 Creatinine [Mass/Vol] 1.11 mg/dL 0.55-1.02 [facility] Comment on above: The validity of the calculated GFR & GFRAA in patients over 70 years has not been determined. Clinical correlation is essential. Serum or plasma urea nitroge n measurement (mass/volume)Ordered By: Dr. Neff on 01-02-2023 Urea nitrogen [Mass/Vol] 24 mg/dL 7-18 [facility] Thin prep Papanicolaou smear with manual screeningOrdered By: Dr. Neff on 01-02-2023 Thin prep Papanicolaou smear with manual screening 6 5-15 [facility] LABORATORYOrdered By: Estrellita Woo on 06-28-2022 Ferritin [Mass/Vol] 106.0 ng/mL Invalid Interpretation Code 8.0 - 252.0 ng/mL AO ADM SS Iron [Mass/Vol] 50 ug/dL Invalid Interpretation Code 50 - 170 mcg/dL AO ADM SS Iron binding capacity [Mass/Vol] 306 mcg/dL Invalid Interpretation Code 250 - 450 mcg/dL AO ADM SS LABORATORYOrdered By: Gabino Eden on 05-30-2022 Albumin BCP dye [Mass/Vol] 3.8 G/dL Invalid Interpretation Code 3.4 - 4.8 G/dL AO ADM SS Calcium [Mass/Vol] 9.1 mg/dL Invalid Interpretation Code 8.4 - 10.2 mg/dL AO ADM SS Chloride [Moles/Vol] 102 mmol/L Invalid Interpretation Code 98 - 107 mmol/L AO ADM SS CO2 [Moles/Vol] 31 mmol/L Invalid Interpretation Code 23 - 31 mmol/L AO ADM SS Creatinine [Mass/Vol] 1.63 mg/dL Invalid Interpretation Code 0.55 - 1.02 mg/dL AO ADM SS Electrolyte Balance 5.0 mEq/L Invalid Interpretation Code 4.0 - 15.0 mEq/L AO ADM SS Glucose [Mass/Vol] 84 mg/dL Invalid Interpretation Code 83 - 110 mg/dL AO ADM SS Phosphate [Mass/Vol] 4.1 mg/dL Invalid Interpretation Code 2.3 - 4.1 mg/dL AO ADM SS Potassium [Moles/Vol] 4.5 mmol/L Invalid Interpretation Code 3.5 - 5.1 mmol/L AO ADM SS Sodium [Moles/Vol] 138 mmol/L Invalid Interpretation Code 136 - 145 mmol/L AO ADM SS Urea nitrogen [Mass/Vol] 34 mg/dL Invalid Interpretation Code 7 - 18 mg/dL AO ADM SS Urea nitrogen/Creatinine [Mass ratio] 21 ratio Invalid Interpretation Code 7 - 27 ratio AO ADM SS LABORATORYOrdered By: SYSTEM SYSTEM on 05-30-2022 GFR 36 ml/min/1.73sqm Invalid Interpretation Code AO Chemistry S GFR Non- 30 ml/min/1.73sqm Invalid Interpretation Code AO Chemistry S No Panel Informationon 04-12 Stool Calprotectin 35 ug/g 0-120 [place] [facility] Work Phone: Comment on above: Concentration Interp retation Follow-Up<16 - 50 ug/g Normal None>50 -120 ug/g Borderline Re-evaluate in 4-6 weeks >120 ug/g Abnormal Repeat as clinically indicatedPerformed at: [facility] [id number] [place], [place] [id number] Director: Louis Fletcher PhD, Phone: [phone] at: [facility] [id number] [place], [place] [id number] Director: Cira Frank MD, Phone: [phone] Stool Neutral Fats Normal . [facility] Work Phone: Comment on above: Normal (<60 Droplets /HPF) Endomysial IgA Antibody Negative Negative [facility] Work Phone: Qualitative fecal fat or lip idson 04-12-2022 Fat Ql (Stl) Normal . [facility] Work Phone: Comment on above: Normal (<100 Droplet s/HPF) Serum IgA measurement (units /volume)on 04-12-2022 IgA Qn (S) 111 mg/dL 64-422 [facility] Work Phone: Comment on above: Performed at: [facility] [address] [id number] Director: Louis Fletcher PhD, Phone: [phone] Serum or plasma C reactive p rotein measurement (mass/volume)on 04-12-2022 CRP [Mass/Vol] mg/L 0.0-3.0 [facility] Work Phone: Comment on above: C-Reactive Protein ( CRP) provides useful information for thediagnosis, therapy and monitoring of inflammatory processesand associated diseases. For the evaluation of Relative Riskfor Cardiovascular Disease, a High Sensitivity CRP (HSCRP)should be ordered. Serum tissue transglutaminas e IgA antibody assay (units/volume)on 04-12-2022 tTG IgA Qn (S) <2 U/mL 0-3 [facility] Work Phone: Comment on above: Negative 0 - 3 Weak Positive 4 - 10 Positive >10 Tissue Transglutaminase (tTG) has been identified as the endomysial antigen. Studies have demonstr- ated that endomysial IgA antibodies have over 99% specificity for gluten sensitive enteropathy. LABORATORYOrdered By: Zen Naranjo on 02-15-2022 Albumin BCP dye [Mass/Vol] 4.1 G/dL Invalid Interpretation Code 3.4 - 4.8 G/dL AO ADM SS Calcium [Mass/Vol] 9.5 mg/dL Invalid Interpretation Code 8.4 - 10.2 mg/dL AO ADM SS Chloride [Moles/Vol] 102 mmol/L Invalid Interpretation Code 98 - 107 mmol/L AO ADM SS CO2 [Moles/Vol] 31 mmol/L Invalid Interpretation Code 23 - 31 mmol/L AO ADM SS Creatinine [Mass/Vol] 1.95 mg/dL Invalid Interpretation Code 0.55 - 1.02 mg/dL AO ADM SS Electrolyte Balance 7.0 mEq/L Invalid Interpretation Code 4.0 - 15.0 mEq/L AO ADM SS Glucose [Mass/Vol] 94 mg/dL Invalid Interpretation Code 83 - 110 mg/dL AO ADM SS Phosphate [Mass/Vol] 4.3 mg/dL Invalid Interpretation Code 2.3 - 4.1 mg/dL AO ADM SS Potassium [Moles/Vol] 4.8 mmol/L Invalid Interpretation Code 3.5 - 5.1 mmol/L AO ADM SS Sodium [Moles/Vol] 140 mmol/L Invalid Interpretation Code 136 - 145 mmol/L AO ADM SS Urea nitrogen [Mass/Vol] 35 mg/dL Invalid Interpretation Code 7 - 18 mg/dL AO ADM SS Urea nitrogen/Creatinine [Mass ratio] 18 ratio Invalid Interpretation Code 7 - 27 ratio AO ADM SS LABORATORYOrdered By: Sepideh Weeks on 02-15-2022 Basophil, Absolute 0.0 103/mcL Invalid Interpretation Code 0.0 - 0.2 10^3/mcL AO Workflow SS Basophils/100 WBC (Bld) 0.8 % Invalid Interpretation Code 0.0 - 2.5 % AO Workflow SS Eosinophil, Absolute 0.5 103/mcL Invalid Interpretation Code 0.0 - 0.4 10^3/mcL AO Workflow SS Eosinophils/100 WBC (Bld) 8.2 % Invalid Interpretation Code 0.0 - 7.0 % AO Workflow SS Erythrocyte distribution width (RBC) [Ratio] 13.7 % Invalid Interpretation Code 11.5 - 14.5 % AO Workflow SS Hematocrit (Bld) [Volume fraction] 36.4 % Invalid Interpretation Code 37.0 - 47.0 % AO Workflow SS Hemoglobin (Bld) [Mass/Vol] 12.3 G/dL Invalid Interpretation Code 12.0 - 16.0 G/dL AO Workflow SS Lymphocyte, Absolute 1.1 103/mcL Invalid Interpretation Code 0.8 - 3.9 10^3/mcL AO Workflow SS Lymphocytes/100 WBC (Bld) 19.1 % Invalid Interpretation Code 10.0 - 50.0 % AO Workflow SS MCH (RBC) [Entitic mass] 31.0 pg Invalid Interpretation Code 27.0 - 31.2 pg AO Workflow SS MCHC 33.9 G/dL Invalid Interpretation Code 33.0 - 37.0 G/dL AO Workflow SS MCV (RBC) [Entitic vol] 91.5 fL Invalid Interpretation Code 80.0 - 94.0 fL AO Workflow SS Monocyte, Absolute 0.8 103/mcL Invalid Interpretation Code 0.2 - 1.0 10^3/mcL AO Workflow SS Monocytes/100 WBC (Bld) 13.6 % Invalid Interpretation Code 1.7 - 13.0 % AO Workflow SS Neutrophil, Absolute 3.3 103/mcL Invalid Interpretation Code 2.9 - 6.2 10^3/mcL AO Workflow SS Neutrophils/100 WBC (Bld) 58.3 % Invalid Interpretation Code 37.0 - 80.0 % AO Workflow SS Platelet mean volume (Bld) [Entitic vol] 9.5 fL Invalid Interpretation Code 7.4 - 10.4 fL AO Workflow SS Platelets (Bld) [#/Vol] 208 103/mcL Invalid Interpretation Code 130 - 400 10^3/mcL AO Workflow SS RBC (Bld) [#/Vol] 3.97 106/mcL Invalid Interpretation Code 4.20 - 5.40 10^6/mcL AO Workflow SS WBC 5.6 103/mcL Invalid Interpretation Code 4.6 - 10.8 10^3/mcL AO Workflow SS LABORATORYOrdered By: SYSTEM SYSTEM on 02-15-2022 GFR 30 ml/min/1.73sqm Invalid Interpretation Code AO Chemistry S GFR Non- 24 ml/min/1.73sqm Invalid Interpretation Code AO Chemistry S Monocyte distribution width Auto (Bld) [Entitic vol] Not Performed 1 *NA* (02/15/22 1:49 PM) Invalid Interpretation Code 0.00 - 20.00 AO Hematology S Comment on above: Result Comment: MDW testing performed only on adult ER patients between the ages of 18-89 years. Basophil percentageon 04-28- 2022 Basophil percentage 4.7 mg/dL 2.5-4.9 [place] [facility] Work Phone: Chloride [Moles/Vol] 104 mmol/L 98-[address] [facility] Work Phone: Glucose [Mass/Vol] 84 mg/dL 74-106 [facility] Work Phone: Potassium [Moles/Vol] 4.0 mmol/L 3.5-5.1 [place] [facility] Work Phone: Comment on above: Slight Hemolysis, Re sult may be falsely increased. Sodium [Moles/Vol] 136 mmol/L 136-145 [facility] Work Phone: Laboratory - Chemistry and C hemistry - challengeon 12-08-2021 CO2 [Moles/Vol] 27.0 mmol/L 21.0-32.0 [facility] Work Phone: Urea nitrogen/Creatinine [Mass ratio] 23.6 mg/mg 10-20 [facility] Work Phone: No Panel Informationon 12-08 Estimated GFR (MDRD) Amer 39 mL/min >60 [facility] Work Phone: Comment on above: GFR Calc Estimated GFR (MDRD) Non-Af Amer 32 mL/min >60 [facility] Work Phone: Comment on above: Non- GFR Calc Parathyroid Hormone (Intact) 50.6 pg/mL 18.4-80.1 [facility] Work Phone: Serum or plasma albumin kialyn urement (mass/volume)on 12-08-2021 Albumin [Mass/Vol] 3.9 g/dL 3.2-5.0 [facility] Work Phone: Serum or plasma calcium kailyn urement (mass/volume)on 12-08-2021 Calcium [Mass/Vol] 9.5 mg/dL 8.5-10.1 [facility] Work Phone: Serum or plasma creatinine m easurement (mass/volume)on 12-08-2021 Creatinine [Mass/Vol] 1.61 mg/dL 0.55-1.02 [facility] Work Phone: Comment on above: The validity of the calculated GFR & GFRAA in patients over 70 years has not been determined. Clinical correlation is essential. Serum or plasma urea nitroge n measurement (mass/volume)on 12-08-2021 Urea nitrogen [Mass/Vol] 38 mg/dL 7-18 [facility] Work Phone: LABORATORYOrdered By: Gabino Eden on 09-21-2021 Albumin BCP dye [Mass/Vol] 4.1 G/dL Invalid Interpretation Code 3.4 - 4.8 G/dL AO ADM SS Calcium [Mass/Vol] 9.8 mg/dL Invalid Interpretation Code 8.4 - 10.2 mg/dL AO ADM SS Chloride [Moles/Vol] 104 mmol/L Invalid Interpretation Code 98 - 107 mmol/L AO ADM SS CO2 [Moles/Vol] 28 mmol/L Invalid Interpretation Code 23 - 31 mmol/L AO ADM SS Creatinine [Mass/Vol] 1.60 mg/dL Invalid Interpretation Code 0.55 - 1.02 mg/dL AO ADM SS Electrolyte Balance 10.0 mEq/L Invalid Interpretation Code 4.0 - 15.0 mEq/L AO ADM SS Glucose [Mass/Vol] 88 mg/dL Invalid Interpretation Code 83 - 110 mg/dL AO ADM SS Natriuretic peptide.B prohormone N-Terminal [Mass/Vol] 974 pg/mL Invalid Interpretation Code 0 - 450 pg/mL AO ADM SS Phosphate [Mass/Vol] 5.4 mg/dL Invalid Interpretation Code 2.3 - 4.1 mg/dL AO ADM SS Potassium [Moles/Vol] 4.8 mmol/L Invalid Interpretation Code 3.5 - 5.1 mmol/L AO ADM SS Sodium [Moles/Vol] 142 mmol/L Invalid Interpretation Code 136 - 145 mmol/L AO ADM SS Urea nitrogen [Mass/Vol] 41 mg/dL Invalid Interpretation Code 7 - 18 mg/dL AO ADM SS Urea nitrogen/Creatinine [Mass ratio] 26 ratio Invalid Interpretation Code 7 - 27 ratio AO ADM SS LABORATORYOrdered By: SYSTEM SYSTEM on 09-21-2021 GFR 37 ml/min/1.73sqm Invalid Interpretation Code AO Chemistry S GFR Non- 31 ml/min/1.73sqm Invalid Interpretation Code AO Chemistry S LABORATORYOrdered By: Estrellita Woo on 09-02-2021 Calcium [Mass/Vol] 9.6 mg/dL Invalid Interpretation Code 8.4 - 10.2 mg/dL AO ADM SS Chloride [Moles/Vol] 103 mmol/L Invalid Interpretation Code 98 - 107 mmol/L AO ADM SS CO2 [Moles/Vol] 28 mmol/L Invalid Interpretation Code 23 - 31 mmol/L AO ADM SS Creatinine [Mass/Vol] 2.15 mg/dL Invalid Interpretation Code 0.55 - 1.02 mg/dL AO ADM SS Electrolyte Balance 11.0 mEq/L Invalid Interpretation Code 4.0 - 15.0 mEq/L AO ADM SS Glucose [Mass/Vol] 97 mg/dL Invalid Interpretation Code 83 - 110 mg/dL AO ADM SS Potassium [Moles/Vol] 4.3 mmol/L Invalid Interpretation Code 3.5 - 5.1 mmol/L AO ADM SS Sodium [Moles/Vol] 142 mmol/L Invalid Interpretation Code 136 - 145 mmol/L AO ADM SS Urea nitrogen [Mass/Vol] 44 mg/dL Invalid Interpretation Code 7 - 18 mg/dL AO ADM SS Urea nitrogen/Creatinine [Mass ratio] 20 ratio Invalid Interpretation Code 7 - 27 ratio AO ADM SS LABORATORYOrdered By: SYSTEM SYSTEM on 09-02-2021 GFR 26 ml/min/1.73sqm Invalid Interpretation Code AO Chemistry S GFR Non- 22 ml/min/1.73sqm Invalid Interpretation Code AO Chemistry S LABORATORYOrdered By: Gabino Eden on 08-30-2021 Calcium [Mass/Vol] 9.8 mg/dL Invalid Interpretation Code 8.4 - 10.2 mg/dL AO ADM SS Chloride [Moles/Vol] 104 mmol/L Invalid Interpretation Code 98 - 107 mmol/L AO ADM SS CO2 [Moles/Vol] 29 mmol/L Invalid Interpretation Code 23 - 31 mmol/L AO ADM SS Creatinine [Mass/Vol] 2.27 mg/dL Invalid Interpretation Code 0.55 - 1.02 mg/dL AO ADM SS Electrolyte Balance 10.0 mEq/L Invalid Interpretation Code 4.0 - 15.0 mEq/L AO ADM SS Glucose [Mass/Vol] 117 mg/dL Invalid Interpretation Code 83 - 110 mg/dL AO ADM SS Potassium [Moles/Vol] 4.6 mmol/L Invalid Interpretation Code 3.5 - 5.1 mmol/L AO ADM SS Sodium [Moles/Vol] 143 mmol/L Invalid Interpretation Code 136 - 145 mmol/L AO ADM SS Urea nitrogen [Mass/Vol] 40 mg/dL Invalid Interpretation Code 7 - 18 mg/dL AO ADM SS Urea nitrogen/Creatinine [Mass ratio] 18 ratio Invalid Interpretation Code 7 - 27 ratio AO ADM SS LABORATORYOrdered By: SYSTEM SYSTEM on 08-30-2021 GFR 25 ml/min/1.73sqm Invalid Interpretation Code AO Chemistry S GFR Non- 21 ml/min/1.73sqm Invalid Interpretation Code AO Chemistry S LABORATORYOrdered By: Zen Naranjo on 08-30-2021 Natriuretic peptide.B prohormone N-Terminal [Mass/Vol] 1036 pg/mL Invalid Interpretation Code 0 - 450 pg/mL AO ADM SS LABORATORYOrdered By: Zen Naranjo on 08-26-2021 Albumin BCP dye [Mass/Vol] 4.0 G/dL Invalid Interpretation Code 3.4 - 4.8 G/dL AO ADM SS Albumin/Globulin [Mass ratio] 1.5 {ratio} Invalid Interpretation Code 1.1 - 2.5 ratio AO ADM SS ALP [Catalytic activity/Vol] 52 U/L Invalid Interpretation Code 40 - 135 U/L AO ADM SS ALT With P-5'-P [Catalytic activity/Vol] 28 U/L Invalid Interpretation Code 14 - 59 U/L AO ADM SS AST With P-5'-P [Catalytic activity/Vol] 27 U/L Invalid Interpretation Code 10 - 40 U/L AO ADM SS Basophil, Absolute 0.00 103/mcL Invalid Interpretation Code 0.00 - 0.19 10^3/mcL AO Auto Heme SS Basophils/100 WBC (Bld) 0.8 % Invalid Interpretation Code 0.0 - 2.5 % AO Auto Heme SS Bilirubin [Mass/Vol] 0.3 mg/dL Invalid Interpretation Code 0.2 - 1.0 mg/dL AO ADM SS Calcium [Mass/Vol] 9.1 mg/dL Invalid Interpretation Code 8.4 - 10.2 mg/dL AO ADM SS Chloride [Moles/Vol] 102 mmol/L Invalid Interpretation Code 98 - 107 mmol/L AO ADM SS CO2 [Moles/Vol] 27 mmol/L Invalid Interpretation Code 23 - 31 mmol/L AO ADM SS Creatinine [Mass/Vol] 1.96 mg/dL Invalid Interpretation Code 0.55 - 1.02 mg/dL AO ADM SS Electrolyte Balance 10.0 mEq/L Invalid Interpretation Code 4.0 - 15.0 mEq/L AO ADM SS Eosinophil, Absolute 0.20 103/mcL Invalid Interpretation Code 0.00 - 0.40 10^3/mcL AO Auto Heme SS Eosinophils/100 WBC (Bld) 4.3 % Invalid Interpretation Code 0.0 - 7.0 % AO Auto Heme SS Erythrocyte distribution width (RBC) [Ratio] 12.6 % Invalid Interpretation Code 11.5 - 14.5 % AO Auto Heme SS Globulin 2.7 G/dL Invalid Interpretation Code AO ADM SS Glucose [Mass/Vol] 93 mg/dL Invalid Interpretation Code 83 - 110 mg/dL AO ADM SS Hematocrit (Bld) [Volume fraction] 33.0 % Invalid Interpretation Code 37.0 - 47.0 % AO Auto Heme SS Hemoglobin (Bld) [Mass/Vol] 11.1 G/dL Invalid Interpretation Code 12.0 - 16.0 G/dL AO Auto Heme SS Lymphocyte, Absolute 1.10 103/mcL Invalid Interpretation Code 0.77 - 3.85 10^3/mcL AO Auto Heme SS Lymphocytes/100 WBC (Bld) 20.6 % Invalid Interpretation Code 10.0 - 50.0 % AO Auto Heme SS MCH (RBC) [Entitic mass] 32.2 pg Invalid Interpretation Code 27.0 - 31.2 pg AO Auto Heme SS MCHC (RBC) [Mass/Vol] 33.7 G/dL Invalid Interpretation Code 33.0 - 37.0 G/dL AO Auto Heme SS MCV (RBC) [Entitic vol] 95.3 fL Invalid Interpretation Code 80.0 - 94.0 fL AO Auto Heme SS Monocyte, Absolute 0.60 103/mcL Invalid Interpretation Code 0.15 - 1.00 10^3/mcL AO Auto Heme SS Monocytes/100 WBC (Bld) 12.2 % Invalid Interpretation Code 1.7 - 13.0 % AO Auto Heme SS Natriuretic peptide.B prohormone N-Terminal [Mass/Vol] 1379 pg/mL Invalid Interpretation Code 0 - 450 pg/mL AO ADM SS Neutrophil, Absolute 3.20 103/mcL Invalid Interpretation Code 2.85 - 6.16 10^3/mcL AO Auto Heme SS Neutrophils/100 WBC (Bld) 62.1 % Invalid Interpretation Code 37.0 - 80.0 % AO Auto Heme SS Platelet mean volume (Bld) [Entitic vol] 10.3 fL Invalid Interpretation Code 7.4 - 10.4 fL AO Auto Heme SS Platelets (Bld) [#/Vol] 214 103/mcL Invalid Interpretation Code 130 - 400 10^3/mcL AO Auto Heme SS Potassium [Moles/Vol] 4.6 mmol/L Invalid Interpretation Code 3.5 - 5.1 mmol/L AO ADM SS Protein [Mass/Vol] 6.7 G/dL Invalid Interpretation Code 6.4 - 8.2 G/dL AO ADM SS RBC (Bld) [#/Vol] 3.46 106/mcL Invalid Interpretation Code 4.20 - 5.40 10^6/mcL AO Auto Heme SS Sodium [Moles/Vol] 139 mmol/L Invalid Interpretation Code 136 - 145 mmol/L AO ADM SS Urea nitrogen [Mass/Vol] 35 mg/dL Invalid Interpretation Code 7 - 18 mg/dL AO ADM SS Urea nitrogen/Creatinine [Mass ratio] 18 ratio Invalid Interpretation Code 7 - 27 ratio AO ADM SS Uric Acid Lvl 7.0 mg/dL Invalid Interpretation Code 2.6 - 6.2 mg/dL AO ADM SS WBC (Bld) [#/Vol] 5.20 103/mcL Invalid Interpretation Code 4.60 - 10.80 10^3/mcL AO Auto Heme SS LABORATORYOrdered By: SYSTEM SYSTEM on 08-26-2021 GFR 29 ml/min/1.73sqm Invalid Interpretation Code AO Chemistry S GFR Non- 24 ml/min/1.73sqm Invalid Interpretation Code AO Chemistry S LABORATORYOrdered By: Zen Naranjo on 06-21-2021 Albumin DL <= 20 mg/L (U) [Mass/Vol] 3147 mcg/dL Invalid Interpretation Code AO ADM SS Albumin/Creatinine DL <= 20 mg/L (U) [Mass ratio] 109 mcg/mg Invalid Interpretation Code 0 - 30 mcg/mg AO ADM SS Creatinine (U) [Mass/Vol] 29.0 mg/dL Invalid Interpretation Code 28.0 - 117.0 mg/dL AO ADM SS Albumin BCP dye [Mass/Vol] 4.1 G/dL Invalid Interpretation Code 3.4 - 4.8 G/dL AO ADM SS Albumin/Globulin [Mass ratio] 1.4 {ratio} Invalid Interpretation Code 1.1 - 2.5 ratio AO ADM SS ALP [Catalytic activity/Vol] 41 U/L Invalid Interpretation Code 40 - 135 U/L AO ADM SS ALT With P-5'-P [Catalytic activity/Vol] 22 U/L Invalid Interpretation Code 14 - 59 U/L AO ADM SS AST With P-5'-P [Catalytic activity/Vol] 21 U/L Invalid Interpretation Code 10 - 40 U/L AO ADM SS Bilirubin [Mass/Vol] 0.5 mg/dL Invalid Interpretation Code 0.2 - 1.0 mg/dL AO ADM SS Calcium [Mass/Vol] 9.8 mg/dL Invalid Interpretation Code 8.4 - 10.2 mg/dL AO ADM SS Chloride [Moles/Vol] 104 mmol/L Invalid Interpretation Code 98 - 107 mmol/L AO ADM SS Cholesterol [Mass/Vol] 196 mg/dL Invalid Interpretation Code 0 - 200 mg/dL AO ADM SS Cholesterol in HDL [Mass/Vol] 81 mg/dL Invalid Interpretation Code 40 - 60 mg/dL AO ADM SS Cholesterol in LDL [Mass/Vol] 105 mg/dL Invalid Interpretation Code 0 - 130 mg/dL AO ADM SS CO2 [Moles/Vol] 29 mmol/L Invalid Interpretation Code 23 - 31 mmol/L AO ADM SS Creatinine [Mass/Vol] 1.57 mg/dL Invalid Interpretation Code 0.55 - 1.02 mg/dL AO ADM SS Electrolyte Balance 10.0 mEq/L Invalid Interpretation Code AO ADM SS Globulin 2.9 G/dL Invalid Interpretation Code AO ADM SS Glucose [Mass/Vol] 86 mg/dL Invalid Interpretation Code 83 - 110 mg/dL AO ADM SS Potassium [Moles/Vol] 4.3 mmol/L Invalid Interpretation Code 3.5 - 5.1 mmol/L AO ADM SS Protein [Mass/Vol] 7.0 G/dL Invalid Interpretation Code 6.4 - 8.2 G/dL AO ADM SS Sodium [Moles/Vol] 143 mmol/L Invalid Interpretation Code 136 - 145 mmol/L AO ADM SS Triglyceride [Mass/Vol] 49 mg/dL Invalid Interpretation Code 0 - 150 mg/dL AO ADM SS TSH Qn 2.55 m[IU]/L Invalid Interpretation Code 0.36 - 3.74 mcIU/mL AO ADM SS Urea nitrogen [Mass/Vol] 32 mg/dL Invalid Interpretation Code 7 - 18 mg/dL AO ADM SS Urea nitrogen/Creatinine [Mass ratio] 20 ratio Invalid Interpretation Code 7 - 27 ratio AO ADM SS LABORATORYOrdered By: SYSTEM SYSTEM on 06-21-2021 GFR 38 ml/min/1.73sqm Invalid Interpretation Code AO Chemistry S GFR Non- 31 ml/min/1.73sqm Invalid Interpretation Code AO Chemistry S CNPNon 02-17-2021 CNPN Telephone (AGGENS4) RADHA MAYERS ([id number]) 1935 F Date Time Provider Department 02/17/21 KARUNA SHIELDS AGGENS4 During your visit today, we recorded the following information about you: Bg Ag RN 02/17/2021 4:22 PM Signed I called Dr. Pearce's office, which was already closed for the day. I left a message on their voicemail that we were not able to complete Radha's manometry due to coiling of the catheter. I left my contact information. Bg Ag RN Allergies As of Date: 02/17/2021 Noted Allergy Reaction DARVON (PROPOXYPHENE) 02/08/2021 16 - Unknown LYRICA (PREGABALIN) 02/17/2021 16 - Unknown PERCOCET (OXYCODONE-ACETAMINOP HEN)02/08/2021 14 - Other: See Comments Comments: sleepy ULTRAM (TRAMADOL) 02/08/2021 16 - Unknown Date Reviewed: 02/17/2021 Reviewed by: Lila De La Torre RN - Fully Assessed Reason for Visit: Results [95] Prescriptions as of 02/17/2021 - aspirin, enteric coated (ASPIRIN, ENTERIC COATED) 81 mg EC tablet Take 81 mg by mouth once daily. - metoprolol succinate ER (TOPROL XL) 100 mg Take 25 mg by mouth twice daily. - sertraline (ZOLOFT) 50 mg tablet Take 50 mg by mouth once daily. - pantoprazole DR (PROTONIX) 40 mg tablet Take 40 mg by mouth once daily. - furosemide (LASIX) 40 mg tablet Take 40 mg by mouth twice daily. - levothyroxine 50 mcg cap Take 50 mcg by mouth daily before breakfast. - spironolactone (ALDACTONE) 25 mg tablet Take 25 mg by mouth once daily. - HYDROcodone-Acetamino phen (NORCO) 10-325 mg per tablet Take 1 tablet by mouth every 8 hours as needed for pain. - traZODone (DESYREL) 50 mg tablet Take 50 mg by mouth daily at bedtime. - acetaminophen (TYLENOL) 500 mg tablet Take 500 mg by mouth every 8 hours as needed. - pramipexole (MIRAPEX) 0.5 mg tablet Take 0.5 mg by mouth daily at bedtime. - magnesium citrate 100 mg tab Take by mouth. - mecobalamin (B12 ACTIVE ORAL) Take by mouth. - ascorbic acid, vitamin C, (VITAMIN C) 250 mg tablet Take 250 mg by mouth once daily. - calcium carb/vit D2/minerals (CALTRATE PLUS ORAL) Take by mouth. - mag carb/aluminum hydrox/algin (GAVISCON ORAL) Take by mouth as needed. - HYLANDS LEG CRAMP TABLET Problem List As Of Date: 02/17/2021 (None) Encounter Status:Closed by BG AG on 02/17/21 [facility] NURSING PROGon 02-17-2021 NURSING PROG HNO ID: [id number] Author: Lila De La Torre, MALCOM Service: Nursing Author Type: Registered Nurse Type: Nursing Progress Note Filed: 02/17/2021 12:51 PM Note Text: Nursing Progress Note Patient Name: Radha Mayers Patient Location: [facility] The patient was taken into the procedure room. Informed consent/the order verified and all allergies reviewed prior to procedure. Patient denies taking any muscle relaxers or blood thinners. Patient denies any surgeries or injuries to nose. The manometry probe was inserted into the LEFT nare without any difficulty, however resistance noted at approximately the 45 rosa. Patient did report knowing she had a large hiatal hernia. It appeared that the probe was coiling at some point in the patient's esophagus or up against her hernia. Visually, it was confirmed the probe was not coiling in patients mouth. This RN, plus 2 additional RNs attempted to continue to advance the mano probe by having the patient change position multiple ways in and out of the bed, withdrawing slightly before re-advancing, lifting up her arms, swallowing more water, but we were collectively unable to advance any further than the 45 rosa which on the monitor was not sufficiently placed far enough to obtain swallowing data. The patient had been very cooperative and willingly tried all tactics, but the procedure was ultimately discontinued. Patient was informed of possible congestion and minimal nose bleeding following procedure. No blood noted on probe upon removal. Lila [facility] RADHA MAY[facility] ([id number]) 1935 F Date Time Provider Department 02/08/21 KARUNA SHIELDS AGGENS4 During your visit today, we recorded the following information about you: Bg Ag RN 02/08/2021 2:58 PM Signed I called the patient's daughter, Luz and verbally discussed and reviewed the information about esophageal manometry. Patient is [place] and does not drive, so all the appointments are scheduled through her daughter. All of Luz's questions were answered. I emailed the patient written information about esophageal manometry and the prep instructions and directions for the appointment to Luz, per her request, to [email or web address]. Patient will not need Covid testing as she had a positive test on 12/30/20. Bg Ag RN Allergies As of Date: 02/08/2021 Noted Allergy Reaction DARVON (PROPOXYPHENE) 02/08/2021 16 - Unknown PERCOCET (OXYCODONE-ACETAMINOP HEN)02/08/2021 14 - Other: See Comments Comments: sleepy ULTRAM (TRAMADOL) 02/08/2021 16 - Unknown Date Reviewed: 02/08/2021 Reviewed by: Bg Ag RN - Fully Assessed Reason for Visit: Future Appointment [256] Cmt: manometry 02/17/21 Problem List As Of Date: 02/08/2021 (None) Encounter Status:Closed by BG AG on 02/08/21 [facility] Office Visiton 12-25-2016 Documentation of current medications (procedure) Done Invalid Interpretation Code [facility] Work Phone: Tobacco smoking status NHIS Never smoker [facility] Work Phone: Tobacco use CPHS Never smoker Invalid Interpretation Code [facility] Work Phone: Vital Signs Date Time Vital Sign Value Performing Clinician Facility 05-25-2025 07:54-0400 Body height 149.[address] Rehan Lucero DO Work Phone: [facility] 05-25-2025 07:54-0400 Body mass index (BMI) [Ratio] 21.8 kg/m2 Dr. Rehan Lucero DO Work Phone: [facility] 05-25-2025 07:54-0400 Body weight 48.[address] Rehan Lucero DO Work Phone: [facility] 05-25-2025 07:54-0400 Diastolic blood pressure 78 mm[Hg] Dr. Rehan Lucero DO Work Phone: [facility] 05-25-2025 07:54-0400 Heart rate 63 /min Dr. Rehan Lucero DO Work Phone: [facility] 05-25-2025 07:54-0400 Respiratory rate 18 /min Dr. Rehan Lucero DO Work Phone: [facility] 05-25-2025 07:54-0400 SaO2% (BldA) [Mass fraction] 98 % Dr. Rehan Lucero DO Work Phone: [facility] 05-25-2025 07:54-0400 Systolic blood pressure 134 mm[Hg] Dr. Rehan Lucero DO Work Phone: [facility] 11-29-2024 08:35-0400 Heart rate 75 /min Dr. Rehan Lucero DO Work Phone: [facility] 11-29-2024 07:47-0400 SaO2% (BldA) [Mass fraction] 95 % Dr. Rehan Lucero DO Work Phone: [facility] 11-29-2024 07:46-0400 Body temperature 98.1 [degF] Dr. Rehan Lucero DO Work Phone: [facility] 11-29-2024 07:46-0400 Diastolic blood pressure 75 mm[Hg] Dr. Rehan Lucero DO Work Phone: [facility] 11-29-2024 07:46-0400 Respiratory rate 18 /min Dr. Rehan Lucero DO Work Phone: [facility] 11-29-2024 07:46-0400 Systolic blood pressure 136 mm[Hg] Dr. Rehan Lucero DO Work Phone: [facility] 11-27-2024 22:44-0400 Body height 149.[address] Rehan Lucero DO Work Phone: [facility] 11-27-2024 22:44-0400 Body mass index (BMI) [Ratio] 21.5 kg/m2 Dr. Rehan Lucero DO Work Phone: [facility] 11-27-2024 22:44-0400 Body weight 48.[address] Rehan Lucero DO Work Phone: [facility] 11-27-2024 22:23-0400 Body temperature 97.5 [degF] Dr. Rehan Lucero DO Work Phone: [facility] 11-27-2024 22:23-0400 Diastolic blood pressure 75 mm[Hg] Dr. Rehan Lucero DO Work Phone: [facility] 11-27-2024 22:23-0400 Heart rate 70 /min Dr. Rehan Lucero DO Work Phone: [facility] 11-27-2024 22:23-0400 Respiratory rate 17 /min Dr. Rehan Lucero DO Work Phone: [facility] 11-27-2024 22:23-0400 SaO2% (BldA) [Mass fraction] 97 % Dr. Rehan Lucero DO Work Phone: [facility] 11-27-2024 22:23-0400 Systolic blood pressure 148 mm[Hg] Dr. Rehan Lucero DO Work Phone: [facility] 11-27-2024 17:47-0400 Body height 149.[address] Rehan Lucero DO Work Phone: [facility] 11-27-2024 17:47-0400 Body mass index (BMI) [Ratio] 22.6 kg/m2 Dr. Rehan Lucero DO Work Phone: [facility] 11-27-2024 17:47-0400 Body weight [address] Rehan Lucero DO Work Phone: [facility] 11-26-2024 14:21-0400 Body mass index (BMI) [Ratio] 21.2 kg/m2 Dr. Rehan Lucero DO Work Phone: [facility] 11-26-2024 14:21-0400 Body weight 47.[address] Rehan Lucero DO Work Phone: [facility] 11-26-2024 14:21-0400 Diastolic blood pressure 67 mm[Hg] Dr. Rehan Lucero DO Work Phone: [facility] 11-26-2024 14:21-0400 Heart rate 62 /min Dr. Rehan Lucero DO Work Phone: [facility] 11-26-2024 14:21-0400 Respiratory rate 16 /min Dr. Rehan Lucero DO Work Phone: [facility] 11-26-2024 14:21-0400 Systolic blood pressure 111 mm[Hg] Dr. Rehan Lucero DO Work Phone: [facility] 10-06-2024 17:01-0500 Body temperature 98.3 [degF] Dr. Rehan Lucero DO Work Phone: [facility] 10-06-2024 17:01-0500 Diastolic blood pressure 65 mm[Hg] Dr. Rehan Lucero DO Work Phone: [facility] 10-06-2024 17:01-0500 Heart rate 68 /min Dr. Rehan Lucero DO Work Phone: [facility] 10-06-2024 17:01-0500 Respiratory rate 16 /min Dr. Rehan Lucero DO Work Phone: [facility] 10-06-2024 17:01-0500 SaO2% (BldA) [Mass fraction] 99 % Dr. Rehan Lucero DO Work Phone: [facility] 10-06-2024 17:01-0500 Systolic blood pressure 130 mm[Hg] Dr. Rehan Lucero DO Work Phone: [facility] 10-06-2024 13:05-0500 Body height 149.[address] Rehan Lucero DO Work Phone: [facility] 10-06-2024 05:15-0500 Body temperature 98 [degF] Dr. Rehan Lucero DO Work Phone: [facility] 10-06-2024 05:15-0500 Diastolic blood pressure 65 mm[Hg] Dr. Rehan Lucero DO Work Phone: [facility] 10-06-2024 05:15-0500 Heart rate 80 /min Dr. Rehan Lucero DO Work Phone: [facility] 10-06-2024 05:15-0500 Respiratory rate 18 /min Dr. Rehan Lucero DO Work Phone: [facility] 10-06-2024 05:15-0500 SaO2% (BldA) [Mass fraction] 94 % Dr. Rehan Lucero DO Work Phone: [facility] 10-06-2024 05:15-0500 Systolic blood pressure 114 mm[Hg] Dr. Rehan Lucero DO Work Phone: [facility] 10-05-2024 23:05-0500 Body mass index (BMI) [Ratio] 26.1 kg/m2 Dr. Rehan Lucero DO Work Phone: [facility] 10-05-2024 23:05-0500 Body weight 58.[address] Rehan Lucero DO Work Phone: [facility] 07-17-2024 11:37-0500 Body temperature 97.16 [degF] REHAN LUCERO DO [facility] 07-17-2024 11:37-0500 Diastolic Blood Pressure Non-Invasive 79 mm[Hg] REHAN LUCERO DO [facility] 07-17-2024 11:37-0500 Heart rate 71 /min REHAN LUCERO DO [facility] 07-17-2024 11:37-0500 Reason For Taking VItal Signs REHAN LUCERO DO [facility] 07-17-2024 11:37-0500 Respiratory rate 16 /min REHAN LUCERO DO [facility] 07-17-2024 11:37-0500 Systolic Blood Pressure Non-Invasive 162 mm[Hg] REHAN LUCERO DO [facility] 02-04-2024 10:39-0400 Diastolic Blood Pressure Non-Invasive 68 mm[Hg] DR LOUIS PEARCE MD [facility] 02-04-2024 10:39-0400 Heart rate 71 /min DR LOUIS PEARCE MD [facility] 02-04-2024 10:39-0400 Respiratory rate 21 /min DR LOUIS PEARCE MD [facility] 02-04-2024 10:39-0400 Systolic Blood Pressure Non-Invasive 104 mm[Hg] DR LOUIS PEARCE MD [facility] 02-04-2024 10:37-0400 Diastolic Blood Pressure Non-Invasive 65 mm[Hg] DR LOUIS PEARCE MD [facility] 02-04-2024 10:37-0400 Heart rate 66 /min DR LOUIS PEARCE MD [facility] 02-04-2024 10:37-0400 Respiratory rate 14 /min DR LOUIS PEARCE MD [facility] 02-04-2024 10:37-0400 Systolic Blood Pressure Non-Invasive 110 mm[Hg] DR LOUIS PEARCE MD [facility] 02-04-2024 10:30-0400 Diastolic Blood Pressure Non-Invasive 63 mm[Hg] DR LOUIS PEARCE MD [facility] 02-04-2024 10:30-0400 Heart rate 69 /min DR LOUIS PEARCE MD [facility] 02-04-2024 10:30-0400 Respiratory rate 19 /min DR LOUIS PEARCE MD [facility] 02-04-2024 10:30-0400 Systolic Blood Pressure Non-Invasive 96 mm[Hg] DR LOUIS PEARCE MD [facility] 02-04-2024 10:16-0400 Body temperature 97.7 [degF] DR LOUIS PEARCE MD [facility] 02-04-2024 10:10-0400 Respiratory Rate - Anes 20 br/min DR LOUIS PEARCE MD [facility] 02-04-2024 10:05-0400 Respiratory Rate - Anes 19 br/min DR LOUIS PEARCE MD [facility] 02-04-2024 09:30-0400 Body height 154.[address] LOUIS PEARCE MD [facility] 02-04-2024 09:30-0400 Body temperature 98.78 [degF] DR LOUIS PEARCE MD [facility] 02-04-2024 09:30-0400 Body weight 46.[address] LOUIS PEARCE MD [facility] 02-04-2024 09:30-0400 Heart rate 67 /min DR LOUIS PEARCE MD [facility] 12-18-2023 11:41-0400 Body temperature 97.7 [degF] REHAN LUCERO DO [facility] 12-18-2023 11:41-0400 Diastolic Blood Pressure Non-Invasive 88 mm[Hg] REHAN LUCERO DO [facility] 12-18-2023 11:41-0400 Heart rate 72 /min REHAN LUCERO DO [facility] 12-18-2023 11:41-0400 Reason For Taking VItal Signs REHAN LUCERO DO [facility] 12-18-2023 11:41-0400 Respiratory rate 14 /min REHAN LUCERO DO [facility] 12-18-2023 11:41-0400 Systolic Blood Pressure Non-Invasive 138 mm[Hg] REHAN LUCERO DO [facility] 12-07-2023 12:57-0400 Body height 149.[address] Rehan Lucero Work Phone: [facility] 12-07-2023 12:57-0400 Body mass index (BMI) [Ratio] 20.7 kg/m2 Dr. Rehan Lucero Work Phone: [facility] 12-07-2023 12:57-0400 Body weight 46.[address] Rehan Lucero Work Phone: [facility] 12-07-2023 12:57-0400 Diastolic blood pressure 71 mm[Hg] Dr. Rehan Lucero Work Phone: [facility] 12-07-2023 12:57-0400 Heart rate 72 /min Dr. Rehan Lucero Work Phone: [facility] 12-07-2023 12:57-0400 Respiratory rate 18 /min Dr. Rehan Lucero Work Phone: [facility] 12-07-2023 12:57-0400 SaO2% (BldA) [Mass fraction] 92 % Dr. Rehan Lucero Work Phone: [facility] 12-07-2023 12:57-0400 Systolic blood pressure 111 mm[Hg] Dr. Rehan Lucero Work Phone: [facility] 11-27-2023 08:15-0400 Body height 149.86 cm [facility] 11-27-2023 08:15-0400 Body mass index (BMI) [Ratio] 24.4 kg/m2 [facility] 11-27-2023 08:15-0400 Body temperature 98.1 [degF] [facility] 11-27-2023 08:15-0400 Body weight 54.8 kg [facility] 11-27-2023 08:15-0400 Diastolic blood pressure 83 mm[Hg] [facility] 11-27-2023 08:15-0400 Heart rate 72 /min [facility] 11-27-2023 08:15-0400 Respiratory rate 16 /min [facility] 11-27-2023 08:15-0400 SaO2% (BldA) [Mass fraction] 95 % [facility] 11-27-2023 08:15-0400 Systolic blood pressure 169 mm[Hg] [facility] 06-12-2023 11:35-0400 Body temperature 97.52 [degF] REHAN NIC [employer] [facility] 06-12-2023 11:35-0400 Diastolic Blood Pressure Non-Invasive 68 1 REHAN HERNANDEZY DO [facility] 06-12-2023 11:35-0400 Heart rate 64 /min REHAN LUCERO DO [facility] 06-12-2023 11:35-0400 Reason For Taking VItal Signs REHAN LUCERO [employer] [facility] 06-12-2023 11:35-0400 Respiratory rate 18 /min REHAN LUCERO [employer] [facility] 06-12-2023 11:35-0400 Systolic Blood Pressure Non-Invasive 124 1 REHAN NIC [employer] [facility] 01-03-2023 02:05-0400 Diastolic blood pressure 73 mm[Hg] Dr. Rehan Lucero Work Phone: [facility] 01-03-2023 02:05-0400 Heart rate 62 /min Dr. Rehan Lucero Work Phone: [facility] 01-03-2023 02:05-0400 Respiratory rate 18 /min Dr. Rehan Lucero Work Phone: [facility] 01-03-2023 02:05-0400 SaO2% (BldA) [Mass fraction] 97 % Dr. Rehan Lucero Work Phone: [facility] 01-03-2023 02:05-0400 Systolic blood pressure 173 mm[Hg] Dr. Rehan Lucero Work Phone: [facility] 01-02-2023 22:24-0400 Body height 149.[address] Rehan Lucero Work Phone: [facility] 01-02-2023 22:24-0400 Body mass index (BMI) [Ratio] 24.5 kg/m2 Dr. Rehan Lucero Work Phone: [facility] 01-02-2023 22:24-0400 Body temperature 98.8 [degF] Dr. Rehan Lucero Work Phone: [facility] 01-02-2023 22:24-0400 Body weight [address] Rehan Lucero Work Phone: [facility] 12-18-2022 09:23-0400 Body weight 52.[address] LOUIS PEARCE MD [facility] 12-18-2022 09:23-0400 Diastolic Blood Pressure Non-Invasive [address] LOUIS PEARCE MD [facility] 12-18-2022 09:23-0400 Diastolic Blood Pressure Non-Invasive [address] LOUIS PEARCE MD [facility] 12-18-2022 09:23-0400 Heart rate 75 /min DR LOUIS PEARCE MD [facility] 12-18-2022 09:23-0400 Respiratory rate 16 /min DR LOUIS PEARCE MD [facility] 12-18-2022 09:23-0400 Systolic Blood Pressure Non-Invasive [address] LOUIS PEARCE MD [facility] 12-18-2022 09:23-0400 Systolic Blood Pressure Non-Invasive [address] LOUIS PEARCE MD [facility] 12-18-2022 09:08-0400 Diastolic Blood Pressure Non-Invasive [address] LOUIS PEARCE MD [facility] 12-18-2022 09:08-0400 Heart rate 74 /min DR LOUIS PEARCE MD [facility] 12-18-2022 09:08-0400 Respiratory rate 14 /min DR LOUIS PEARCE MD [facility] 12-18-2022 09:08-0400 Systolic Blood Pressure Non-Invasive [address] LOUIS PEARCE MD [facility] 12-18-2022 08:53-0400 Body temperature 96.8 [degF] DR LOUIS PEARCE MD [facility] 12-18-2022 08:45-0400 Respiratory Rate - Anes 17 br/min DR LOUIS PEARCE MD [facility] 12-18-2022 08:40-0400 Respiratory Rate - Anes 17 br/min DR LOUIS PEARCE MD [facility] 12-18-2022 08:35-0400 Respiratory Rate - Anes 19 br/min DR LOUIS PEARCE MD [facility] 12-18-2022 07:33-0400 Body height 149.[address] LOUIS PEARCE MD [facility] 12-18-2022 07:32-0400 Body temperature 98.42 [degF] DR LOUIS PEARCE MD [facility] 12-18-2022 07:32-0400 Heart rate 63 /min DR LOUIS PEARCE MD [facility] 12-06-2022 13:21-0400 Diastolic blood pressure 78 mm[Hg] Dr. Rehan Lucero Work Phone: [facility] 12-06-2022 13:21-0400 Systolic blood pressure 132 mm[Hg] Dr. Rehan Lucero Work Phone: [facility] 12-06-2022 13:21-0400 Body mass index (BMI) [Ratio] 23.8 kg/m2 Dr. Rehan Lucero Work Phone: [facility] 12-06-2022 13:21-0400 Body weight 53.[address] Rehan Lucero Work Phone: [facility] 12-06-2022 13:21-0400 Heart rate 68 /min Dr. Rehan Lucero Work Phone: [facility] 12-06-2022 13:21-0400 Respiratory rate 18 /min Dr. Rehan Lucero Work Phone: [facility] 12-06-2022 13:21-0400 SaO2% (BldA) [Mass fraction] 97 % Dr. Rehan Lucero Work Phone: [facility] 10-30-2022 07:05-0400 Body height 149.[address] Rehan Lucero Work Phone: [facility] 10-30-2022 07:05-0400 Body weight 54.[address] Rehan Lucero Work Phone: [facility] 10-27-2022 07:20-0400 Body mass index (BMI) [Ratio] 24.3 kg/m2 Dr. Rehan Lucero Work Phone: [facility] 10-24-2022 13:28-0400 Body mass index (BMI) [Ratio] 24.3 kg/m2 Dr. Rehan Lucero Work Phone: [facility] 10-24-2022 13:28-0400 Body weight 54.[address] Rehan Lucero Work Phone: [facility] 10-24-2022 13:28-0400 Diastolic blood pressure 84 mm[Hg] Dr. Rehan Lucero Work Phone: [facility] 10-24-2022 13:28-0400 Heart rate 64 /min Dr. Rehan Lucero Work Phone: [facility] 10-24-2022 13:28-0400 Respiratory rate 16 /min Dr. Rehan Lucero Work Phone: [facility] 10-24-2022 13:28-0400 Systolic blood pressure 155 mm[Hg] Dr. Rehan Lucero Work Phone: [facility] 06-25-2022 08:09-0500 Diastolic Blood Pressure Non-Invasive [address] AGUSTINA MILES DO [facility] 06-25-2022 08:09-0500 Heart rate 71 /min DR AGUSTINA MILES DO [facility] 06-25-2022 08:09-0500 Respiratory rate 16 /min DR AGUSTINA MILES DO [facility] 06-25-2022 08:09-0500 Systolic Blood Pressure Non-Invasive [address] AGUSTINA MILES DO [facility] 06-25-2022 06:12-0500 Diastolic Blood Pressure Non-Invasive [address] BERRIOS NANCYLAURA DO [facility] 06-25-2022 06:12-0500 Heart rate 72 /min DR BERRIOS NANCYLAURA DO [facility] 06-25-2022 06:12-0500 Respiratory rate 16 /min DR BERRIOS NANCYLAURA DO [facility] 06-25-2022 06:12-0500 Systolic Blood Pressure Non-Invasive [address] BERRIOS NANCYLAURA DO [facility] 05-30-2022 21:56-0400 Diastolic blood pressure 90 mm[Hg] MARITZA PAIGE MD [facility] 05-30-2022 21:56-0400 Heart rate 77 /min MARITZA PAIGE MD [facility] 05-30-2022 21:56-0400 Mean blood pressure 119 mm[Hg] MARITZA PAIGE MD [facility] 05-30-2022 21:56-0400 Respiratory rate 20 /min MARITZA PAIGE MD [facility] 05-30-2022 21:56-0400 Systolic blood pressure 177 mm[Hg] MARITZA PAIGE MD [facility] 05-30-2022 18:19-0400 Body height 147.3 cm MARITZA PAIGE MD [facility] 05-30-2022 18:19-0400 Body temperature 98.42 [degF] MARITZA PAIGE MD [facility] 05-30-2022 18:19-0400 Body weight 56.8 kg MARITZA PAIGE MD [facility] 05-30-2022 18:19-0400 Diastolic blood pressure 84 mm[Hg] MARITZA PAIGE MD [facility] 05-30-2022 18:19-0400 Heart rate 80 /min MARITZA PAIGE MD [facility] 05-30-2022 18:19-0400 Respiratory rate 20 /min MARITZA PAIGE MD [facility] 05-30-2022 18:19-0400 Systolic blood pressure 198 mm[Hg] MARITZA PAIGE MD [facility] 04-18-2022 13:08-0400 Body height 149.[address] Rehan Lucero Work Phone: [facility] Work Phone: 04-18-2022 13:08-0400 Body mass index (BMI) [Ratio] 25.4 kg/m2 Dr. Rehan Lucero Work Phone: [facility] Work Phone: 04-18-2022 13:08-0400 Body weight 57.[address] Rehan Lucero Work Phone: [facility] Work Phone: 04-18-2022 13:08-0400 Diastolic blood pressure 75 mm[Hg] Dr. Rehan Lucero Work Phone: [facility] Work Phone: 04-18-2022 13:08-0400 Heart rate 76 /min Dr. Rehan Lucero Work Phone: [facility] Work Phone: 04-18-2022 13:08-0400 Respiratory rate 16 /min Dr. Rehan Lucero Work Phone: [facility] Work Phone: 04-18-2022 13:08-0400 SaO2% (BldA) [Mass fraction] 98 % Dr. Rehan Lucero Work Phone: [facility] Work Phone: 04-18-2022 13:08-0400 Systolic blood pressure 150 mm[Hg] Dr. Rehan Lucero Work Phone: [facility] Work Phone: 10-31-2021 10:12-0400 Diastolic Blood Pressure NBP [address] LOUIS PEARCE MD [facility] 10-31-2021 10:12-0400 Heart rate 69 /min DR LOUIS PEARCE MD [facility] 10-31-2021 10:12-0400 Respiratory rate 16 /min DR LOUIS PEARCE MD [facility] 10-31-2021 10:12-0400 Systolic Blood Pressure NBP [address] LOUIS PEARCE MD [facility] 10-31-2021 10:07-0400 Diastolic Blood Pressure NBP [address] LOUIS PEARCE MD [facility] 10-31-2021 10:07-0400 Heart rate 76 /min DR LOUIS PEARCE MD [facility] 10-31-2021 10:07-0400 Respiratory rate 15 /min DR LOUIS PEARCE MD [facility] 10-31-2021 10:07-0400 Systolic Blood Pressure NBP [address] LOUIS PEARCE MD [facility] 10-31-2021 09:58-0400 Diastolic Blood Pressure NBP [address] LOUIS PEARCE MD [facility] 10-31-2021 09:58-0400 Heart rate 73 /min DR LOUIS PEARCE MD [facility] 10-31-2021 09:58-0400 Respiratory rate 14 /min DR LOUIS PEARCE MD [facility] 10-31-2021 09:58-0400 Systolic Blood Pressure NBP [address] LOUIS PEARCE MD [facility] 10-31-2021 07:49-0400 Body height [address] LOUIS PEARCE MD [facility] 10-31-2021 07:31-0400 Body height [address] LOUIS PEARCE MD [facility] 10-31-2021 07:31-0400 Body temperature 97.16 [degF] DR LOUIS PEARCE MD [facility] 10-31-2021 07:31-0400 Body weight 57.[address] LOUIS PEARCE MD [facility] 10-31-2021 07:31-0400 Heart rate 69 /min DR LOUIS PEARCE MD [facility] 10-18-2021 12:04-0500 Body height 149.[address] Rehan Lucero Work Phone: [facility] Work Phone: 10-18-2021 12:04-0500 Body mass index (BMI) [Ratio] 26.4 kg/m2 Dr. Rehan Lucero Work Phone: [facility] Work Phone: 10-18-2021 12:04-0500 Body weight 59.[address] Rehan Lucero Work Phone: [facility] Work Phone: 10-18-2021 12:04-0500 Diastolic blood pressure 80 mm[Hg] Dr. Rehan Lucero Work Phone: [facility] Work Phone: 10-18-2021 12:04-0500 Heart rate 71 /min Dr. Rehan Lucero Work Phone: [facility] Work Phone: 10-18-2021 12:04-0500 Respiratory rate 18 /min Dr. Rehan Lucero Work Phone: [facility] Work Phone: 10-18-2021 12:04-0500 SaO2% (BldA) [Mass fraction] 95 % Dr. Rehan Lucero Work Phone: [facility] Work Phone: 10-18-2021 12:04-0500 Systolic blood pressure 142 mm[Hg] Dr. Rehan Lucero Work Phone: [facility] Work Phone: 08-09-2021 20:31-0500 Body height 149.9 cm AJ MARTINEZ MD [facility] 08-09-2021 20:31-0500 Body temperature 97.7 [degF] AJ MARTINEZ MD [facility] 08-09-2021 20:31-0500 Diastolic blood pressure 75 mm[Hg] AJ MARTINEZ MD [facility] 08-09-2021 20:31-0500 Heart rate 66 /min AJ MARTINEZ MD [facility] 08-09-2021 20:31-0500 Respiratory rate 16 /min AJ MARTINEZ MD [facility] 08-09-2021 20:31-0500 Systolic blood pressure 164 mm[Hg] AJ MARTINEZ MD [facility] Encounters Encounter Date Encounter Type Care Provider Facility Start: 05-25-2025 End: 05-25-2025 Patient encounter procedure Scottie MARTINEZ -[facility] Work Phone: Start: 05-25-2025 End: 05-25-2025 [facility] Start: 03-19-2025 End: 03-23-2025 ambulatory STEPHANIE ESPITIA DO Facility:[facility] Start: 03-19-2025 End: 03-23-2025 Outreach Lab STEPHANIE ESPITIA DO [facility] Start: 02-23-2025 End: 02-23-2025 ambulatory STEPHANIE ESPITIA DO Facility:[facility] Start: 02-23-2025 End: 02-23-[address] LOUIS PEARCE MD [facility] Start: 01-19-2025 End: 01-19-2025 ambulatory REHAN LUCERO DO Facility:[facility] Start: 01-19-2025 End: 01-19-2025 SAME DAY STAY REAHN LUCERO DO [facility] Start: 12-01-2024 End: 12-01-[address] Rehan Lucero DO Work Phone: [facility] Work Phone: Start: 12-01-2024 End: 12-01-2024 Departed Referred Jamir Eagle MD [facility] Start: 12-01-2024 End: 12-01-2024 ambulatory Rehan Lucero Facility:[facility] Start: 11-29-2024 Non-patient / Non-visit Dr. Britt Guthrie MD -[facility] Work Phone: Start: 11-28-2024 Non-patient / Non-visit Dr. Britt Guthrie MD -[facility] Work Phone: Start: 11-27-2024 End: 11-29-2024 ambulatory Aguilar Gale Facility:[facility] Start: 11-27-2024 End: 11-29-2024 Evaluation and management of inpatient Dr. Aguilar Gale DO -[facility] Work Phone: Start: 11-27-2024 End: 11-29-[address] Rehan Lucero DO Work Phone: [facility] Work Phone: Start: 11-26-2024 End: 11-26-2024 Patient encounter procedure Renee CODY -[facility] Work Phone: Start: 11-26-2024 End: 11-26-2024 ambulatory Renee CODY Facility:[facility] Start: 10-08-2024 End: 10-08-[address] Rehan Lucero DO Work Phone: [facility] Work Phone: Start: 10-08-2024 End: 10-08-2024 Departed Referred Jamir Eagle MD [facility] Start: 10-08-2024 End: 10-08-2024 ambulatory Rehan Lucero Facility:[facility] Start: 10-06-2024 End: 10-06-2024 Emergency department patient visit Dr. Braydon Nathan DO -Emergency Department Work Phone: Start: 10-05-2024 End: 10-06-2024 Emergency department patient visit Dr. Benito Romero DO -Emergency Department Work Phone: Start: 07-17-2024 End: 07-17-2024 ambulatory REHAN LUCERO DO Facility:[facility] Start: 07-17-2024 End: 07-17-2024 SAME DAY STAY REHAN LUCERO DO [facility] Start: 06-17-2024 End: 06-17-2024 ambulatory REHAN NIC DO Facility:[facility] Start: 06-17-2024 End: 06-17-2024 Patient encounter procedure LEXIE VARGHESE SUPERVISOR ACCOUNTS RECEIVABLE-SANIPRACTIC PHYSICIAN [facility] Start: 02-04-2024 End: 02-04-2024 ambulatory REHAN LUCERO DO Facility:[facility] Start: 02-04-2024 End: 02-04-[address] LOUIS PEARCE MD [facility] Start: 12-18-2023 End: 12-18-2023 ambulatory REHAN LUCERO DO Facility:[facility] Start: 12-18-2023 End: 12-18-2023 SAME DAY STAY REHAN LUCERO DO [facility] Start: 12-10-2023 End: 12-10-[address] Rehan Lucero Work Phone: [facility] Work Phone: Start: 12-10-2023 End: 12-10-[address] Rehan Lucero Work Phone: [facility]-Laboratory Work Phone: Start: 12-07-2023 End: 12-07-[address] Rehan Lucero Work Phone: [facility] Work Phone: Start: 12-07-2023 End: 12-07-[address] Rehan Lucero Work Phone: [facility] Work Phone: Start: 11-27-2023 End: 11-27-2023 Emergency department patient visit [facility]-Emergency Department Work Phone: Start: 08-21-2023 End: 08-21-2023 ambulatory REHAN CARNEYSAY DO Facility:[facility] Start: 08-21-2023 End: 08-21-2023 Patient encounter procedure REHAN NIC DO [facility] Start: 06-12-2023 End: 06-12-2023 ambulatory REHAN HERNANDEZY DO Facility:[facility] Start: 06-12-2023 End: 06-12-2023 SAME DAY STAY REHAN LUCERO DO [facility] Start: 05-14-2023 End: 05-14-2023 ambulatory REHAN LUCERO DO Facility:[facility] Start: 05-14-2023 End: 05-14-2023 Patient encounter procedure REHAN HERNANDEZY DO [facility] Start: 05-09-2023 End: 05-13-2023 ambulatory REHAN NIC DO Facility:[facility] Start: 05-09-2023 End: 05-13-2023 Outreach Lab REBECA MAST SUPERVISOR ACCOUNTS RECEIVABLE-SANIPRACTIC PHYSICIAN [facility] Start: 03-08-2023 End: 03-08-[address] Rehan Lucero Work Phone: [facility] Work Phone: Start: 03-08-2023 End: 03-08-[address] Rehan Lucero Work Phone: [facility]-Radiology, [place] Work Phone: Start: 01-24-2023 End: 01-24-[address] Rehan Lucero Work Phone: [facility] Work Phone: Start: 01-24-2023 End: 01-24-[address] Rehan Lucero Work Phone: [facility]-Laboratory Start: 01-02-2023 End: 01-03-2023 Emergency department patient visit Dr. Rehan Lucero Work Phone: [facility]-Emergency Department Start: 12-18-2022 End: 12-18-[address] LOUIS PEARCE MD [facility] Start: 12-06-2022 End: 12-06-[address] Rehan Lucero Work Phone: [facility] Start: 11-09-2022 End: 11-09-2022 Patient encounter procedure AYALA STOCK SUPERVISOR ACCOUNTS RECEIVABLE-SANIPRACTIC PHYSICIAN [facility] Start: 10-30-2022 End: 10-30-2022 Admission to same day surgery center Dr. Rehan Lucero Work Phone: [facility]/Special Procedures Start: 10-30-2022 End: 10-30-[address] Rehan Lucero Work Phone: [facility] Work Phone: Start: 10-24-2022 End: 10-24-[address] Rehan Lucero Work Phone: [facility] Start: 10-17-2022 End: 10-18-2022 Non-patient / Non-visit Dr. Rehan Lucero Work Phone: [facility] Start: 10-11-2022 End: 10-11-[address] Rehan Lucero Work Phone: [facility] Start: 08-30-2022 End: 08-30-[address] Rehan Lucero Work Phone: [facility] Start: 06-28-2022 End: 06-28-2022 Patient encounter procedure SHERIF BERNARDO MD [facility] Start: 06-25-2022 End: 06-25-2022 Emergency department patient visit DR AGUSTINA MILES DO [facility] Start: 06-21-2022 End: 06-21-2022 Patient encounter procedure REHAN LUCERO DO [facility] Start: 05-30-2022 End: 05-30-2022 Emergency department patient visit MARITZA PAIGE MD [facility] Start: 05-30-2022 End: 05-30-[address] DIANA VALERA DO [facility] Start: 05-03-2022 Non-patient / Non-visit Dr. Rachel Lucero Work Phone: [facility] Start: 05-03-2022 End: 05-03-[address] Rehan Lucero Work Phone: [facility] Work Phone: Start: 05-03-2022 End: 05-03-[address] Rehan Lucero Work Phone: [facility]-Cardiovascular Services Start: 04-18-2022 End: 04-18-[address] Rehan Lucero Work Phone: [facility] Start: 04-12-2022 End: 04-12-[address] Rehan Lucero Work Phone: [facility] Work Phone: Start: 04-12-2022 End: 04-12-[address] Rehan Lucero Work Phone: [facility] Start: 02-24-2022 End: 02-24-2022 Patient encounter procedure REHAN LUCERO DO [facility] Start: 02-15-2022 End: 02-15-[address] DIANA VALERA DO [facility] Start: 12-30-2021 End: 12-30-[address] Rehan Lucero Work Phone: [facility] Start: 12-08-2021 End: 12-08-[address] Rehan Lucero Work Phone: [address] Start: 11-15-2021 End: 11-15-[address] Rehan Lucero Work Phone: [facility] Start: 10-31-2021 End: 10-31-[address] LOUIS PEARCE MD [facility] Start: 10-18-2021 End: 10-18-[address] Rehan Lucero Work Phone: [facility] Start: 09-22-2021 End: 09-22-[address] Rehan Lucero Work Phone: [facility] Start: 09-21-2021 End: 09-21-2021 Patient encounter procedure REHAN LUCERO DO [facility] Start: 09-02-2021 End: 09-02-[address] DAWN DO [facility] Start: 08-30-2021 End: 08-30-[address] DAWN DO [facility] Start: 08-26-2021 End: 08-26-[address] DAWN DO [facility] Start: 08-10-2021 End: 08-10-2021 Patient encounter procedure AJ MARTINEZ MD [facility] Start: 08-09-2021 End: 08-10-2021 Emergency department patient visit AJ MARTINEZ MD [facility] Start: 07-11-2021 End: 07-11-2021 Patient encounter procedure REHAN LUCERO DO [facility] Start: 06-21-2021 End: 06-21-2021 Patient encounter procedure REHAN LUCERO DO [facility] Procedures Date Procedure Procedure Detail Performing Clinician Start: 02-23-[address] LOUIS GONZALEZ MD Start: 11-29-[address] Naman Lucero DO Work Phone: Start: 11-27-2024 Plain X-ray of clavicle Dr. Rehan wong DO Work Phone: Start: 11-27-2024 CT cervical spine without contrast Dr. Hang Lucero DO Work Phone: Start: 11-27-2024 CT of lumbar spine Dr. Rehan Lucero DO Work Phone: Start: 11-27-2024 CT of head without contrast Dr. Rehan lyons DO Work Phone: Start: 11-27-2024 X-ray of knee, one or two views Dr. Jose Luis Lucero DO Work Phone: Start: 11-27-2024 Computed tomography of thoracic spine without contrast Dr. Rehan Lucero DO Work Phone: Start: 11-27-2024 Plain X-ray of shoulder Dr. Rehan wong DO Work Phone: Start: 10-06-2024 Urnls dip stick/tablet reagent auto microscopy Dr. Rehan Lucero DO Work Phone: Start: 10-05-[address] Naman Lucero DO Work Phone: Start: 10-05-2024 Measurement of renal function Dr. Rehan Lucero DO Work Phone: Comment on above: GFR Calc Start: 10-05-2024 Computed tomography of thoracic spine without contrast Dr. Rehan Lucero DO Work Phone: Start: 10-05-2024 CT cervical spine without contrast Dr. Hang Lucero DO Work Phone: Start: 10-05-2024 CT of head without contrast Dr. Rehan lyons DO Work Phone: Start: 10-05-2024 CT of lumbar spine Dr. Rehan Lucero DO Work Phone: Start: 10-05-2024 Plain radiography of pelvis Dr. Rehan lyons DO Work Phone: Start: 10-05-2024 Plain X-ray of femur Dr. Rehan Lucero DO Work Phone: Start: 10-05-2024 X-ray of foot, three or more views Dr. Hang Lucero DO Work Phone: Start: 10-05-2024 XR knee, [address] Rehan Lucero DO Work Phone: Start: 10-05-2024 SARS-CoV-2, Influenza & RSV (PCR) Dr. Rachel Lucero DO Work Phone: Start: 10-05-2024 Plain chest X-ray Dr. Rehan Lucero DO Work Phone: Start: 11-27-2023 Plain x-ray of pelvis and lower extremity Start: 11-27-2023 Plain X-ray of shoulder Start: 11-27-2023 CT of chest without contrast Start: 11-27-2023 CT of head without contrast Start: 03-08-2023 Radiography of thoracic spine Dr. Rehan Lucero Work Phone: Start: 01-02-2023 Plain chest X-ray Dr. Rehan Lucero Work Phone: Start: 01-02-2023 CT of head without contrast Dr. Rehan lyons Work Phone: Start: 11-15-2021 Plain X-ray of shoulder Dr. Rehan wong Work Phone: Start: 05-05-2019 H/O: surgery History of loop recorder Renee CODY Comment on above: removed 2020 Start: 02-07-2018 History of left hip replacement REHAN Lock SHONNAVI DO Start: 12-25-2016 End: 12-25-2016 Documentation of current medications Basilia Gamble Start: 05-31-2012 History of placement of stent for coronary artery disease History of coronary artery stent placement Renee CODY Comment on above: PCI-Cutting Balloon Atherectomy and JUN- Mid LAD w/ 2.75 x 38 mm Xience Prime and Prox LAD w/ 3.0 x 12 mm Promus Element Stent 05/31/2012 Angioplasty of artery REHAN NIC DO Appendectomy REHAN LUCERO DO Arthroplasty of knee REHAN LUCERO DO Cardiac catheterization JOSE LUIS LUCERO DO Cholecystectomy REHAN WONG DO CT guided kyphoplast y of fracture of cervical spine DR LOUIS PEARCE MD Extraction of cataract NAMAN LUCERO DO History of placement of stent for coronary artery disease History of heart artery stent Dr. Rehan Lucero Work Phone: Hysterectomy REHAN LUCERO DO Tonsillectomy DR LOUIS RAYA MD Plan of Treatment Date Care Activity Detail Author Start: 11-29-2024 Patient discharge [facility] Start: 11-28-2024 Application of device [facility] Start: 11-27-2024 Following clinical pathway protocol [facility] Start: 11-27-2024 Ambulation without limitation [facility] Start: 11-27-2024 Assessment of risk of venous thromboembolism [facility] Start: 11-27-2024 Incentive spirometry [facility] Start: 11-27-2024 Insertion of catheter into peripheral vein [facility] Start: 11-27-2024 Oxygen therapy [facility] Start: 11-27-2024 Providing care according to standard [facility] Start: 11-27-2024 Referral to occupational therapist [facility] Start: 11-27-2024 Referral to service [facility] Start: 11-27-2024 [facility] Start: 11-27-2024 Verification routine [facility] Start: 11-27-2024 Admission procedure [facility] Start: 11-27-2024 Hospital admission, emergency, from emergency room, medical nature [facility] Start: 10-06-2024 [facility] Start: 10-05-2024 [facility] Start: 11-27-2023 [facility] Start: 01-02-2023 [facility] Start: 04-12-2022 Protein measurement [facility] Work Phone: Start: 12-27-2016 End: 12-27-2016 Physical Therapy General Physical Therapy [facility], [address] [place] [address], [id number] [facility] Work Phone: Start: 12-25-2016 End: 12-25-2016 X-Ray, Hip, unilateral, with pelvis; 2-3 views X-Ray, Hip, unilateral, with pelvis; 2-3 views [facility] Work Phone: Fat [Mass/mass] in Stool [facility] Work Phone: Fat.neutral [Presenc e] in Stool [facility] Work Phone: Patient Education [facility] Work Phone: Patient referral [facility] Work Phone: Protein measurement [facility] Work Phone: Replacement of [employer] heart device, pulse generator [facility] US Heart [facility] Work Phone: Immunizations Immunization Date Immunization Notes Care Provider Anh moy 04-01-2019 tetanus toxoid, redu gordy diphtheria toxoid, and acellular pertussis vaccine, adsorbed; Translations: [Boostrix (Tdap)] REHAN LUCERO DO [facility] 05-31-2012 influenza, seasonal, injectable, preservative free REHAN LUCERO DO [facility] 05-01-2012 pneumococcal polysaccharide vaccine, 23 valent REHAN LUCERO DO [facility] Payers Date Payer Category Payer Private Health Insurance [id number] Self-pay [id number] 2019 Medicare [id number] 2015 Private Health Insurance [id number] 2001 Medicare [id number] 1936 Unknown [id number] 2.16.8 40.1.325560.3.579.2. 1936 Unknown [id number] 2.16.8 40.1.739549.3.579.2. 1936 Unknown [id number] 2.16.8 40.1.995919.3.579.2. 1936 Unknown [id number] 2.16.8 40.1.939951.3.579.2.627 1936 Unknown [id number] 2.16.8 40.1.105527.3.579.2. 1936 Unknown [id number] 2.16.8 40.1.502298.3.579.2.7 1936 Unknown [id number] 2.16. 840.1.205740.3.579.2. 1936 Unknown [id number] 2.16. 840.1.942655.3.579.2.627 1936 Unknown [id number] 2.16. 840.1.758418.3.579.2.627 1936 Unknown [id number] 2.16.8 40.1.179024.3.579.2.627 1936 Unknown [id number] 2.16.8 40.1.047318.3.579.2.627 Unknown [id number] 2.16.8 40.1.945059.3.579.2.462 Unknown [id number] 2.16.8 40.1.022075.3.579.2.462 Unknown [id number] 2.16.8 40.1.423734.3.579.2.462 Unknown [id number] 2.16.8 40.1.101841.3.579.2.462 Unknown [id number] 2.16.8 40.1.431337.3.579.2.462 Unknown [id number] 2.16.8 40.1.341184.3.579.2.462 Unknown [id number] 2.16.8 40.1.883100.3.579.2.462 Unknown [id number] 2.16.8 40.1.564831.3.579.2.462 Unknown [id number] 2.16.8 40.1.657634.3.579.2.462 Unknown [id number] 2.16.8 40.1.417772.3.579.2.462 Social History Date Type Detail Facility Start: 04-09-2019 End: 11-27-2024 Never smoked tobacco (finding) [facility] Start: 1935 Sex Assigned At Female A [facility] Start: 10-18-2021 End: 11-27-2023 Tobacco smoking status NCIS Unknown if ever smoked [facility] Start: 02-05-2019 End: 11-13-2024 Sex Female (finding) [facility] Sexual Orientation [facility] [place] Sex Female [facility] Medical Equipment Procedure Code Equipment Code Equipment Origin al Text Equipment Identifier Dates FDA Start: 02-07-2018 FDA Start: 02-07-2018 FDA Start: 02-07-2018 FDA Start: 02-07-2018 FDA Start: 02-07-2018 FDA Start: 02-07-2018 FDA Start: 02-07-2018 FDA Start: 02-07-2018 FDA Start: 02-07-2018 FDA Start: 02-07-2018 FDA Start: 02-07-2018 FDA Start: 02-07-2018 FDA Start: 02-07-2018 FDA Start: 02-07-2018 FDA Start: 02-07-2018 FDA Start: 02-07-2018 FDA Start: 02-07-2018 FDA Start: 02-07-2018 FDA Start: 02-07-2018 FDA Start: 02-07-2018 FDA Start: 02-07-2018 FDA Start: 02-07-2018 FDA Start: 02-07-2018 FDA Start: 02-07-2018 FDA Start: 02-07-2018 FDA Start: 02-07-2018 FDA Start: 02-07-2018 FDA Start: 02-07-2018 FDA Start: 02-07-2018 FDA Start: 02-07-2018 FDA Start: 02-07-2018 FDA Start: 02-07-2018 FDA Start: 02-07-2018 FDA Start: 02-07-2018 FDA Start: 02-07-2018 FDA Start: 02-07-2018 FDA Start: 02-07-2018 FDA Start: 02-07-2018 FDA Start: 02-07-2018 FDA Start: 02-07-2018 FDA Start: 02-07-2018 FDA Start: 02-07-2018 FDA Start: 02-07-2018 FDA Start: 02-07-2018 FDA Start: 02-07-2018 FDA Start: 02-07-2018 FDA Start: 02-07-2018 FDA Start: 02-07-2018 FDA Start: 02-07-2018 FDA Start: 02-07-2018 FDA Start: 02-07-2018 FDA Start: 02-07-2018 FDA Start: 02-07-2018 FDA Start: 02-07-2018 Unknown Unknown 6/28/18 Unknown Unknown FDA Start: 02-07-2018 FDA Start: 02-07-2018 FDA Start: 02-07-2018 FDA Start: 02-07-2018 FDA Start: 02-07-2018 FDA Start: 02-07-2018 Unknown Unknown 6/28/18 Unknown Unknown FDA Start: 02-07-2018 FDA Start: 02-07-2018 FDA Start: 02-07-2018 FDA Start: 02-07-2018 FDA Start: 02-07-2018 FDA Start: 02-07-2018 Unknown Unknown 6/28/18 Unknown Unknown FDA Start: 02-07-2018 FDA Start: 02-07-2018 FDA Start: 02-07-2018 FDA Start: 02-07-2018 FDA Start: 02-07-2018 FDA Start: 02-07-2018 Unknown Unknown 6/28/18 Unknown Unknown FDA Start: 02-07-2018 FDA Start: 02-07-2018 FDA Start: 02-07-2018 FDA Start: 02-07-2018 FDA Start: 02-07-2018 FDA Start: 02-07-2018 Unknown Unknown 6/28/18 Unknown Unknown FDA Start: 02-07-2018 FDA Start: 02-07-2018 FDA Start: 02-07-2018 FDA Start: 02-07-2018 FDA Start: 02-07-2018 FDA Start: 02-07-2018 Unknown Unknown 6/28/18 Unknown Unknown FDA Start: 02-07-2018 FDA Start: 02-07-2018 FDA Start: 02-07-2018 FDA Start: 02-07-2018 FDA Start: 02-07-2018 FDA Start: 02-07-2018 Unknown Unknown 6/28/18 Unknown Unknown FDA Start: 02-07-2018 FDA Start: 02-07-2018 FDA Start: 02-07-2018 FDA Start: 02-07-2018 FDA Start: 02-07-2018 FDA Start: 02-07-2018 Unknown Unknown 6/28/18 Unknown Unknown FDA Start: 02-07-2018 FDA Start: 02-07-2018 FDA Start: 02-07-2018 FDA Start: 02-07-2018 FDA Start: 02-07-2018 FDA Start: 02-07-2018 Unknown Unknown 6/28/18 Unknown Unknown FDA Start: 02-07-2018 FDA Start: 02-07-2018 FDA Start: 02-07-2018 FDA Start: 02-07-2018 FDA Start: 02-07-2018 FDA Start: 02-07-2018 Unknown Unknown 6/28/18 Unknown Unknown FDA Start: 02-07-2018 FDA Start: 02-07-2018 FDA Start: 02-07-2018 FDA Start: 02-07-2018 FDA Start: 02-07-2018 FDA Start: 02-07-2018 Unknown Unknown 6/28/18 Unknown Unknown FDA Start: 02-07-2018 FDA Start: 02-07-2018 FDA Start: 02-07-2018 FDA Start: 02-07-2018 FDA Start: 02-07-2018 FDA Start: 02-07-2018 Unknown Unknown 6/28/18 Unknown Unknown FDA Start: 02-07-2018 FDA Start: 02-07-2018 FDA Start: 02-07-2018 FDA Start: 02-07-2018 FDA Start: 02-07-2018 FDA Start: 02-07-2018 Unknown Unknown 6/28/18 Unknown Unknown FDA Start: 02-07-2018 FDA Start: 02-07-2018 FDA Start: 02-07-2018 FDA Start: 02-07-2018 FDA Start: 02-07-2018 FDA Start: 02-07-2018 Unknown Unknown 6/28/18 Unknown Unknown FDA Start: 02-07-2018 FDA Start: 02-07-2018 FDA Start: 02-07-2018 FDA Start: 02-07-2018 FDA Start: 02-07-2018 FDA Start: 02-07-2018 Unknown Unknown 6/28/18 Unknown Unknown FDA Start: 02-07-2018 FDA Start: 02-07-2018 FDA Start: 02-07-2018 FDA Start: 02-07-2018 FDA Start: 02-07-2018 FDA Start: 02-07-2018 Unknown Unknown 6/28/18 Unknown Unknown FDA Start: 02-07-2018 FDA Start: 02-07-2018 FDA Start: 02-07-2018 FDA Start: 02-07-2018 FDA Start: 02-07-2018 FDA Start: 02-07-2018 Unknown Unknown 6/28/18 Unknown Unknown FDA Start: 02-07-2018 FDA Start: 02-07-2018 FDA Start: 02-07-2018 FDA Start: 02-07-2018 FDA Start: 02-07-2018 FDA Start: 02-07-2018 Unknown Unknown 6/28/18 Unknown Unknown FDA Start: 02-07-2018 FDA Start: 02-07-2018 FDA Start: 02-07-2018 FDA Start: 02-07-2018 FDA Start: 02-07-2018 FDA Start: 02-07-2018 Unknown Unknown 02/07/18 Unknown Unknown FDA Start: 02-07-2018 FDA Start: 02-07-2018 FDA Start: 02-07-2018 FDA Start: 02-07-2018 FDA Start: 02-07-2018 FDA Start: 02-07-2018 Unknown Unknown 02/07/18 Unknown Unknown FDA Start: 02-07-2018 FDA Start: 02-07-2018 FDA Start: 02-07-2018 FDA Start: 02-07-2018 FDA Start: 02-07-2018 FDA Start: 02-07-2018 Goals Date Patient Goal Desired Activity /State Functional Status Date Assessment Result Facility 11-29-2024 Functional status Ambulates [facility] Work Phone: 02-04-2024 Functional Status Maintained [facility] 12-18-2022 Functional Status Ambulating in [place], Ambulating in room, Awake [facility] 12-18-2022 Functional Status Maintained [facility] 06-25-2022 Functional Status Assistive Device None A [facility] 06-25-2022 Functional Status Standard Safet y ID band on, Allergy Band on, Call device within reach, Bed in low position, Wheels locked, Upper/Half-Length side-rails up, Bedside Cart Locked, Visitor at bedside [facility] 05-30-2022 Functional Status Standard Safet y ID band on, Call device within reach, Bed in low position, Wheels locked [facility] 05-30-2022 Functional Status [facility] Mental Status Date Assessment Result Facility 11-29-2024 Cognitive function Appropriate;Cooperativ e [facility] Work Phone: 11-27-2024 Cognitive function Level Of Cons ciousness Awake;Alert;Appropriate [facility] Work Phone: 10-06-2024 Cognitive function Level Of Cons ciousness Awake;Alert;Appropriate;Follow s Commands [facility] Work Phone: 02-04-2024 Mental Status Orientation Oriented x 4 [facility] 06-12-2023 Mental Status Orientation Oriented x 4 [facility] 01-02-2023 Cognitive function Awake;Alert;Appropriat e [facility] Work Phone: 12-18-2022 Mental Status Oriented x 4 [facility] 06-25-2022 Mental Status Orientation Oriented x 4 [facility] 06-25-2022 Mental Status [facility] 05-30-2022 Mental Status Orientation Oriented x 4 [facility] 05-30-2022 Mental Status [facility] Clinical Notes 05-31-2012 to 05-25-2025 Note Date & Type Note Facility 05-25-2025 Progress note [facility] 05-25-2025 Progress note Note Date/Time May 25, 2025 3:23pm [facility] [address] [place] [address] OFFICE VISIT Date of Service: 05/25/25 MR#: [id number] Acct: [id number] Name: RADHA MAYERS Rep #: [id number] : 1935 Provider: MICHELLE Kim Age/Sex: 89/F Location: [facility] Status: Signed HPI HPI History of Present Illness Details: This is an 89 year old female who presents here today for a cardiovascular follow up visit. She does have a history of coronary artery disease with angioplasty and stenting to her LAD in 2011. She underwent a heart catheterization in 2012 and 2016 for chest discomfort. Diagnostic heart catheterization demonstrated 30% distal left main, 30% ostial LAD both of which underwent FFR which were negative, patent stent in the LAD was noted, circumflexartery had mild diffuse disease with a 50% OM lesion. The right coronary arterywas dominant and had mild diffuse disease. Medical therapy was recommended. Mariusz has a history of aortic valve regurgitation, hypertension, hyperlipidemia, and chronic kidney disease. Her loop recorder had reached [place], and she had this explanted in October of 2022. She fell in 09/2024 and fractured her left patella. She sees Dr. Ziegler for this. She did spend time in a SNF. She is now at home with her daughter. She is getting home therapy. She presents to the office in a wheel chair, accompanied by her daughter. She denies chest, arm, jaw, or neck discomfort. She denies palpitations. She denies bilateral lower extremity edema. She denies claudication. She denies shortness of breath with activity, shortness of breath at rest, orthopnea, or PND. She denies chronic cough. She denies significant, sudden weight gain. She denies lightheadedness, dizziness, near-syncope, or syncope. She denies blood in urine, blood in stool, or epistaxis. He denies fever with chills. Shedenies myalgia. She states weakness and fatigue. Her exercise level has remained stable. 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 Inside Required: No Is patient in pain?: No Allergies atorvastatin (From Lipitor) Adverse Reaction (Verified 05/25/25 14:50) myalgia oxycodone (From Percocet) Adverse Reaction (Verified 05/25/25 14:50) Unknown propoxyphene (From Darvocet-N 100) Adverse Reaction (Verified 05/25/25 14:50) Unknown Medications ?Medication ?Instructions ?Recorded ?Confirmed ?Type aspirin 81 mg tablet,delayed 81 mg PO DAILY blood thin ner 04/24/19 05/25/25 History release (Adult Aspirin Regimen) pantoprazole 40 mg tablet,delayed 40 mg PO DAILY gerd 01/10/21 05/25/25 History release loperamide 2 mg capsule (Imodium 2 mg PO Q6H PRN Diarr hea 04/18/22 05/25/25 History A-D) sertraline 50 mg tablet 50 mg PO DAILY mood 04/18/22 05/25/25 History gabapentin 100 mg capsule 100 mg PO DAILY pain 4 05/25/25 History levothyroxine 100 mcg tablet 100 mcg PO DAILY thyroid 02/17/24 05/25/25 History nitroglycerin 0.4 mg sublingual 0.4 mg sublingual Q5-1 5M #30 tabs 04/10/24 05/25/25 Rx tablet spironolactone 25 mg tablet 25 mg PO DAILY water pill #90 tabs 07/14/24 05/25/25 Rx denosumab 60 mg/mL subcutaneous 60 mg subcut [id number] [id number] 11/26/24 05/25/25 History syringe (Prolia) ibuprofen 400 mg tablet 400 mg PO TID PRN pain 11/2605/25/25 History tramadol 50 mg tablet 50 mg PO Q8H PRN pain 5 days #15 11/29/24 05/25/25 Rx tabs metoprolol tartrate 25 mg tablet 25 mg PO BID heart #1 80 tabs 04/20/25 05/25/25 Rx amlodipine 5 mg tablet 2.5 mg PO BID bp 05/25/25 H istory Ejection fraction %: 60 Have you fallen in the past year?: Yes PFSH Medical History (Reviewed 05/25/25 @ 15:08 by Scottie Kim DIESEL POWER SHOVEL OPERATOR, DIESEL POWER SHOVEL OPERATOR-C) Immobility Closed fracture of left clavicle Fall (HFpEF) heart failure with preserved ejection fraction Osteoarthritis of hip (12/25/16) Chronic kidney disease (CKD) Weakness generalized COVID-19 (12/2020) EE (eosinophilic esophagitis) Paroxysmal atrial fibrillation Syncope (03/2019) Bilateral pleural effusion Chronic renal insufficiency Hiatal hernia Secondary pulmonary arterial hypertension Osteoarthritis Depression GERD (gastroesophageal reflux disease) Hypothyroidism Fibromyalgia Deep vein thrombosis (DVT) (04/2012) Atherosclerosis of coronary artery of [place] heart without angina pectoris Essential (primary) hypertension Hyperlipidemia Surgical History (Reviewed 05/25/25 @ 15:08 by Scottie Kim DIESEL POWER SHOVEL OPERATOR, DIESEL POWER SHOVEL OPERATOR-C) History of loop recorder (05/05/19) History of thoracentesis History of appendectomy History of cataract surgery History of total knee arthroplasty History of bowel resection Hx of cholecystectomy History of left heart catheterization (03/23/17) History of hysterectomy History of spinal surgery History of hemiarthroplasty of left hip History of coronary artery stent placement (05/31/12) Family History (Reviewed 05/25/25 @ 15:08 by Scottie Kim DIESEL POWER SHOVEL OPERATOR, DIESEL POWER SHOVEL OPERATOR-C) Father Heart disease CAD (coronary artery disease) Mother Heart disease Diabetes CVA (cerebral vascular accident) CAD (coronary artery disease) Social History household members: spouse housing: house Smoking Status: Never smoker alcohol intake: never substance use type: does not use ROS Const Const: Positive for fatigue and weakness; Negative for frequent falls Eyes Eyes: Negative for blurry vision ENT ENT: Negative for dizziness or Nosebleed/epistaxis Cardio Chest Pain: No Palpitations: No Edema: None Muscle aches with walking: None Resp Respiratory: Negative for SOB with activity, SOB at rest or SOB orthopnea\SOB lying down GI GI: Positive for heartburn; Negative nausea, vomiting, bright, red blood in stools or black,tarry stools : Negative for hematuria Musc Musc: Negative for muscle aches/ myalgia Skin Skin: Negative non-healing lesions or rash Neuro Neuro: Positive for weakness; Negative for dizziness, lightheadedness, near syncope, syncope, frequent falls or blurry vision Endo Endo: Positive for fatigue Allergy Allergy/Immunology: Negative for rash Cardiology Exam Const Appearance: cooperative, healthy appearing, comfortable and no acute distress Nutritional Appearance: average body habitus and well nourished Orientation: alert, awake and oriented x3 Head Head: normal to inspection Ears: hearing grossly normal bilaterally Nose: external nose normal Face and Sinus: face symmetric Mouth: moist mucous membranes Eyes General: appearance normal, both eyes and all related structures Eyelids: eyelids normal EOM: EOM intact bilaterally Neck Neck: normal visual inspection and no JVD Carotids: normal carotid upstroke Chest Chest inspection: normal inspection of the chest, symmetric chest movement and normal respiratory effort; Negative cough Auscultation: Bilateral: Clear to Auscultation Cardio Rate: regular rate Rhythm: regular rhythm Heart sounds: S1 normal and S2 normal; Negative rub, gallop or murmur GI GI: normal to inspection Neuro General: patient alert, patient awake, patient oriented x3 and CN's II-XI intactbilaterally Skin Skin: no rashes or lesions noted Extremities Pulses: Normal: Right Posterior Tibial Pulse, Left Posterior Tibial Pulse, RightRadial Pulse and Left Radial Pulse Lower Extremity Edema: None: Bilateral Psych Psychological: normal affect Supplemental Info Supplemental Information Echocardiogram 05/03/2022: Interpretation Summary Normal LV size. Left ventricular systolic function is normal. The estimated ejection fraction is 60 %. Transmitral and pulmonary venous doppler flow suggestive of impaired relaxation of left ventricle Mild to moderate (1-2+) tricuspid valve insufficiency. Pulmonary artery systolic pressure is 34 mmHg. Pharmacologic myocardial perfusion stress test 06/16/2020 Conclusion: Normal pharmacologic myocardial perfusion stress test. Preserved ejection fraction. CARDIAC PROCEDURE PERFORMED 03/23/2017 Diagnostic heart catheterization, left ventriculography as well as fractional flow reserve of the left anterior descending with FFR of 0.84, which is not significant Diagnostics: Electrocardiogram Echocardiogram Stress Test Stress Test Nuclear Medicine Pacemaker Check Pacemaker Procedure Note Chest X-Ray Past Visits: Cardiology Visit Today Assessment and Plan Assessment and Plan (1) History of coronary artery stent placement: Status: Chronic Comment: PCI-Cutting Balloon Atherectomy and JUN-Mid LAD w/ 2.75 x 38 mm Xience Prime andProx LAD w/ 3.0 x 12 mm Promus Element Stent 05/31/2012 Plan: Patient has a history of coronary artery disease with stenting to her mid LAD and proximal LAD in 2011. Her most recent stress test from 06/16/2020 was negative for ischemia. This appears stable. We will continue to monitor and not make any medication regimen changes. We will continue to promote risk factor and lifestyle modification. (2) Paroxysmal atrial fibrillation: Status: Chronic Plan: Patient has a history of paroxysmal atrial fibrillation. Her most recent 24-hourHolter monitor from 12/20/2023 demonstrated normal sinus rhythm with rare PVCs andfrequent PACs, and an average heart rate of 79 bpm. VE 0.0%, SVE 25.8%, atrial fibrillation 0%. This was reviewed with patient. Her metoprolol was increased to 25 mg twice daily at that time. She appears to be in a regular rhythm on exam today. Her [id number] score is 5. With her recent history of falls, patients risks seemed to outweigh her benefits. She will continue aspirin 81mg daily, and metoprolol tartrate 25mg twice daily. She will continue to monitor for any concerning symptoms of atrial fibrillation. (3) Essential (primary) hypertension: Status: Chronic Plan: Patient's blood pressure is well-controlled. We will continue to monitor. We will not make any medication regimen changes. (4) Aortic regurgitation: Status: Acute Qualifiers: Cardiac valve disease etiology: nonrheumatic Qualified Code(s): I35.1 -Nonrheumatic aortic (valve) insufficiency Plan: Her most recent echocardiogram from 05/03/2022 demonstrated an ejection fraction of 60%, trivial aortic valve insufficiency. Patient appears stable at this time. We will continue to monitor this with history, exam, and echocardiograms as deemed appropriate. (5) Hyperlipidemia: Status: Chronic Qualifiers: Hyperlipidemia type: mixed hyperlipidemia Qualified Code(s): E78.2 - Mixed hyperlipidemia Plan: Patient has a history of hyperlipidemia. Her PCP monitors this. She will continue with aggressive risk factor and lifestyle modifications. A copy of [facility] recent lipid panel would be greatly appreciated for continuity of care. (6) History of loop recorder: Status: Chronic Comment: removed 2020 Plan: Patients loop recorder was explanted on 10/30/2022. Plan Details Additional Comments: Thank you for allowing us to participate in the patients plan of care, if you have any questions please do not hesitate to call. Plan was reviewed with patient/family member along with red flag symptoms. Understanding was acknowledged. Questions were answered to apparent satisfaction. This note was generated using a voice recognition system and there may be incorrect words, spelling or punctuation that were not noted when reviewing the office note prior to saving. Portions of this documentation were copied and pasted from previous office visitnotes to provide a cohesive continuity of the history. The note has been reviewed, edited, and updated, as necessary. Follow Up: Keep as is (CODE AND TEST CLERK) Coding Level of Care Code Off vis,est,level 4 Diagnoses History of coronary artery stent placement Z95.5 Paroxysmal atrial fibrillation I48.0 Essential (primary) hypertension I10 Nonrheumatic aortic valve insufficiency I35.1 Cardiac valve disease etiology: nonrheumatic Mixed hyperlipidemia E78.2 Hyperlipidemia type: mixed hyperlipidemia History of loop recorder Z98.890 Coding Level of Care Code Off vis,est,level 4 Diagnoses History of coronary artery stent placement Z95.5 Paroxysmal atrial fibrillation I48.0 Essential (primary) hypertension I10 Nonrheumatic aortic valve insufficiency I35.1 Cardiac valve disease etiology: nonrheumatic Mixed hyperlipidemia E78.2 Hyperlipidemia type: mixed hyperlipidemia History of loop recorder Z98.890 Clinical Quality Measures Falls Risk Screening/Assistive Devices Have you fallen in the past year?: Yes Cardiac Ejection fraction %: 60 05/25/25 1629 <Electronically signed by Scottie GUSMANC> Date _ Scottie Kim NP DIESEL POWER SHOVEL OPERATOR-C Cosigner Signature: Date (if applicable) CC: Dr. Rehan Lucero, DO ~ [employer] Work Phone: [phone] Hospital Discharge instructions Patient Education 02/23/2025 12:10:47 Monitored Anesthesia Care, Care After Monitored Anesthesia Care, Care After These instructions provide you with information about caring for yourself after your procedure. Your health care provider may also give you more specific instructions. Your treatment has been plannedaccording to current medical practices, but problems sometimes occur. Call your health care provider if you have any problems or questions after your procedure. What can I expect after the procedure? After your procedure, you may: Feel sleepy for several hours. Feel clumsy and have poor balance for several hours. Feel forgetful about what happened after the procedure. Have poor judgment for several hours. Feel nauseous or vomit. Have a sore throat if you had a breathing tube during the procedure. Follow these instructions at home: For at least 24 hours after the procedure: Have a responsible adult stay with you. It is important to have someone help care for you until youare awake and alert. Rest as needed. Do not: ?Participate in activities in which you could fall or become injured. ?Drive. ?Use heavy machinery. ?Drink alcohol. ?Take sleeping pills or medicines that cause drowsiness. ?Make important decisions or sign legal documents. ?Take care of children on your own. Eating and drinking Follow the diet that is recommended by your health care provider. If you vomit, drink water, juice, or soup when you can drink without vomiting. Make sure you have little or no nausea before eating solid foods. General instructions Take tkij-qwn-ttjxoci and prescription medicines only as told by your health care provider. If you have sleep apnea, surgery and certain medicines can increase your risk for breathing problems. Follow instructions from your health care provider about wearing your sleep device: ?Anytime you are sleeping, including during daytime naps. ?While taking prescription pain medicines, sleeping medicines, or medicines that make you drowsy. If you smoke, do not smoke without supervision. Keep all follow-up visits as told by your health care provider. This is important. Contact a health care provider if: You keep feeling nauseous or you keep vomiting. You feel light-headed. You develop a rash. You have a fever. Get help right away if: You have trouble breathing. Summary For several hours after your procedure, you may feel sleepy and have poor judgment. Have a responsible adult stay with you for at least 24 hours or until you are awake and alert. This information is not intended to replace advice given to you by your health care provider. Make sure you discuss any questions you have with your health care provider. Document Released: 11/19/2016 Document Revised: 10/28/2018 Document Reviewed: 11/19/2016 99tests Patient Education 2020 Conjur. 02/23/2025 12:10:45 Esophagogastroduodenoscopy, Care After (40207) Esophagogastroduodenoscopy, Care After Refer to this sheet in the next few weeks. These instructions provide you with information about caring for yourself after your procedure. Your health care provider may also give you more specific instructions. Your treatment has been planned according to current medical practices, but problems sometimes occur. Call your health care provider if you have any problems or questions after your procedure. What can I expect after the procedure? After the procedure, it is common to have: A sore throat. Nausea. Bloating. Dizziness. Fatigue. Follow these instructions at home: Do not eat or drink anything until the numbing medicine (local anesthetic) has worn off and your gag reflex has returned. You will know that the local anesthetic has worn off when you can swallow comfortably. Do not drive for 24 hours if you received a medicine to help you relax (sedative). If your health care provider took a tissue sample for testing during the procedure, make sure to get your test results. This is your responsibility. Ask your health care provider or the department performing the test when your results will be ready. Keep all follow-up visits as told by your health care provider. This is important. Contact a health care provider if: You cannot stop coughing. You are not urinating. You are urinating less than usual. Get help right away if: You have trouble swallowing. You cannot eat or drink. You have throat or chest pain that gets worse. You are dizzy or light-headed. You faint. You have nausea or vomiting. You have chills. You have a fever. You have severe abdominal pain. You have black, tarry, or bloody stools. This information is not intended to replace advice given to you by your health care provider. Make sure you discuss any questions you have with your health care provider. Document Released: 07/16/2013 Document Revised: 01/04/2017 Document Reviewed: 06/22/2016 99tests Interactive Patient Education 2019 Conjur. Follow Up Care 02/19/2025 08:02:15 With:LOUIS PEARCE Address: [address] [place] [phone] Business (1) When: Unknown [facility] 07-14-2025 Evaluation + Plan noteExtracted from: Title:Clinical Document Author:LOUIS PEARCE Date:02/23/25 [place] ADMISSION HISTORY AN D PHYSICIAL CHIEF COMPLAINT: HISTORY OF PRESENT ILLNESS: REVIEW OF SYSTEMS: ACTIVE PROBLEMS: (39) Abnormal x-ray of forearm (090485835) Anxiety (86201302) Balance problems (6609971946) Bradycardia (26990838) CAD (coronary artery disease) (63128296) Carpal tunnel syndrome, left (63137145) Chronic back pain (800415126) Chronic diastolic heart failure (6652151699) Chronic nausea (2423132784) Chronic systolic heart failure (2848299874) Depression (538614649) Dizziness (2818893685) Dysphagia (47684714) Eosinophilic esophagitis (771513803) Fibromyalgia (76515326) Fracture of left clavicle (37472671) GERD (gastroesophageal reflux disease) (1957051353) Hiatal hernia (054970663) History of compression fracture of vertebral column (7792647626) HTN (hypertension) (9736011337) Hx of fall in Mar with R pelvic hairline fx, R wrist fx and R clavicle fx with surgery Hyperlipidemia (418352984) Hypothyroidism (54980970) Irregular heart beat (384858134) Irritable bowel syndrome with diarrhea (273394266) Large hiatal hernia (911260437) Left foot pain (803550676) Left hip pain (46008749) Left patella fracture (41488874) Lightheadedness (0483429680) Neck pain (105001522) Osteoporosis (058100778) Peripheral edema (410862542) Personal history of COVID-19 (2819814110) RA (rheumatoid arthritis) (019732310) Restless leg syndrome (07720210) Screening for colon cancer (880953975) Stage 3b chronic kidney disease (CKD) (9351442457) Syncope (411073808) MEDICATIONS: Active Inpt Meds: onabotulinumtoxinA (Botox) Start: 02/23/25 7:30:00 EDT, Dose = 100 unit(s), = 1 vial(s), Other, prep pharm, 12 hour(s), Stop: 02/23/25 19:29:00 EDT, 0 Active PRN Meds: None One Time Meds: None Active IV Meds: Lactated Ringers Infusion 1,000 mL (LR 1,000 mL) Start: 02/23/25 11:12:00 EDT, Rate: 50 mL/hr, 02/23/25 11:12:00 EDT ALLERGIES: (3) Darvocet-N 100 Percocet 7.5/325 Ultram FAMILY HISTORY: SOCIAL HISTORY: PHYSICAL EXAM: VITALS: PxrfwjMbbqTWCsbrjWTQbG2UGC6RaqkXe(kg) 02/23 11:1336.5--326116WT82/14 49.1 24 Hr Tmax: 36.5 at 02/23 11: 36 Hr Tmax: 36.5 at 02/23 11:13 Vital Signs are the last 5 in the past 48 hours. Weights display the last 5 within 7 days. Initial Wt: 02/23 49.1 kg 108 lb Current Wt: 02/23 49.1 kg 108 lb GENERAL: HEENT: CARDIOVASCULAR: RESPIRATORY: ABDOMEN: EXREMETIES: NEUROLOGICAL: PSYCHIATRIC: LABS: No 36hr Lab Data DIAGNOSTICS: IMPRESSION: PLAN: History and Physical Update I have examined the patient; reviewed the H&P and there are no changes to the H&P unless noted below. Future Appointments Appointment Date:03/19/2025 12:40:00 PM Scheduled Provider:STEPHANIE ESPITIA DO Location:[facility] Appointment Type:PC OV Future Scheduled Tests Laboratory* Thyroid Stimulating Hormone 07/29/24 * Lipid Profile 07/29/24 * Albumin/Creatinine Ratio, Random Urine 07/29/24 * Complete Metabolic Panel 07/29/24 [facility] 07-14-2025 Note Discharge Instructions Thank you for allowing [facility] to assist you with your healthcare needs. The following is importantdischarge information regarding your hospital visit. Your Care Team STEPHANIE ESPITIA DO, Dr. What to do next Scheduled Follow-Up Appointments Appointment Type When With Where Contact Information Status OV 03/19/2025 12:40 PM EDT STEPHANIE ESPITIA DO [address] [phone] Confirmed Follow Up Appointments Follow Up with LOUIS PEARCE Where:[address] [phone] [facility] (1) The Following Activity and Diet Have Been Ordered for You Discharge Activity - Ordered -- NO activity restrictions, 02/23/25 12:21:00 EDT Discharge Diet - Ordered -- Follow the post-operative/post-procedure diet instructions provided by your physician's office.,02/23/25 12:21:00 EDT The Following Equipment Has Been Ordered for You Discharge Home Equipment Discharge Wound Care - Ordered -- Follow the post-operative/post-procedure wound care instructions provided by your physician's office., 02/23/25 12:21:00 EDT Allergies Darvocet-N 100 Percocet 7.5/325 Ultram Medications Please ask your primary doctor or pharmacist before taking any other medication not listed, including over the counter drugs, herbal medications, vitamins and or supplements as they may interact withyour home medications. What How Much When Why Instructions Last Dose Unchanged acetaminophen (Tylenol Extra Strength 500 mg oral tablet) 2 tab(s) by mouth Every 6 hours Unchanged amLODIPine (amLODIPine 5 mg oral tablet) 0.5 by mouth Every 12 hours Unchanged aspirin (aspirin 81 mg oral delayed release tablet) 1 tab(s) by mouth Once a day Unchanged denosumab (Prolia 60 mg/ mL subcutaneous solution) 1 Milliliter Subcutaneous Every 6 months Osteoporosis Diagnosis: M81.0 Unchanged DME (DME MISCellaneous) See instructions Peripheral edema bilateral knee high compression hose 20-30 medium, Dx: R60.9 Unchanged gabapentin (gabapentin 100 mg oral capsule) 1 cap by mouth Once a day Chronic back pain Duration: 90 Days Unchanged herbal/ nutritional product (Probiotic) Unchanged ibuprofen (ibuprofen 400 mg oral tablet) 1 tab(s) by mouth Three (3) times a day as needed for for pain with food Unchanged levothyroxine (levothyroxine 100 mcg (0.1 mg) oral tablet) 1 tab(s) by mouth Once a day Unchanged loperamide (loperamide 2 mg oral capsule) 2 cap by mouth Two (2) times a day Unchanged metoprolol (metoprolol tartrate 25 mg oral tablet) 1 tab(s) by mouth Two (2) times a day Unchanged nitroGLYcerin (Nitrostat 0.4 mg sublingual tablet) 1 tab(s) under the tongue Every 5 minutes as needed for as needed for chest pain Unchanged pantoprazole (pantoprazole 40 mg oral enteric coated tablet) 1 tab(s) by mouth Once a day Unchanged sertraline (sertraline 50 mg oral tablet) 2 tab(s) by mouth Once a day Unchanged spironolactone (spironolactone 25 mg oral tablet) 1 tab(s) by mouth Once a day Unchanged traMADol (traMADol 25 mg oral tablet) 1 tab(s) by mouth Every 12 hours as needed for as needed for pain not to exceed 400 mg/ day Please take this list to your next doctor s visit. Bring all medications you take, including over the counter medications, herbals and other supplements with you to your doctor s visit. Patients and families are reminded to discard old lists and to update any records with all medication providers or retail pharmacies. Education Materials Monitored Anesthesia Care, Care After These instructions provide you with information about caring for yourself after your procedure. Your health care provider may also give you more specific instructions. Your treatment has been plannedaccording to current medical practices, but problems sometimes occur. Call your health care provider if you have any problems or questions after your procedure. What can I expect after the procedure? After your procedure, you may: Feel sleepy for several hours. Feel clumsy and have poor balance for several hours. Feel forgetful about what happened after the procedure. Have poor judgment for several hours. Feel nauseous or vomit. Have a sore throat if you had a breathing tube during the procedure. Follow these instructions at home: For at least 24 hours after the procedure: Have a responsible adult stay with you. It is important to have someone help care for you until youare awake and alert. Rest as needed. Do not: ? Participate in activities in which you could fall or become injured. ? Drive. ? Use heavy machinery. ? Drink alcohol. ? Take sleeping pills or medicines that cause drowsiness. ? Make important decisions or sign legal documents. ? Take care of children on your own. Eating and drinking Follow the diet that is recommended by your health care provider. If you vomit, drink water, juice, or soup when you can drink without vomiting. Make sure you have little or no nausea before eating solid foods. General instructions Take sriw-ilw-cxazeuk and prescription medicines only as told by your health care provider. If you have sleep apnea, surgery and certain medicines can increase your risk for breathing problems. Follow instructions from your health care provider about wearing your sleep device: ? Anytime you are sleeping, including during daytime naps. ? While taking prescription pain medicines, sleeping medicines, or medicines that make you drowsy. If you smoke, do not smoke without supervision. Keep all follow-up visits as told by your health care provider. This is important. Contact a health care provider if: You keep feeling nauseous or you keep vomiting. You feel light-headed. You develop a rash. You have a fever. Get help right away if: You have trouble breathing. Summary For several hours after your procedure, you may feel sleepy and have poor judgment. Have a responsible adult stay with you for at least 24 hours or until you are awake and alert. This information is not intended to replace advice given to you by your health care provider. Make sure you discuss any questions you have with your health care provider. Document Released: 11/19/2016 Document Revised: 10/28/2018 Document Reviewed: 11/19/2016 99tests Patient Education 2020 Conjur. Esophagogastroduodenoscopy, Care After Refer to this sheet in the next few weeks. These instructions provide you with information about caring for yourself after your procedure. Your health care provider may also give you more specific instructions. Your treatment has been planned according to current medical practices, but problems sometimes occur. Call your health care provider if you have any problems or questions after your procedure. What can I expect after the procedure? After the procedure, it is common to have: A sore throat. Nausea. Bloating. Dizziness. Fatigue. Follow these instructions at home: Do not eat or drink anything until the numbing medicine (local anesthetic) has worn off and your gag reflex has returned. You will know that the local anesthetic has worn off when you can swallow comfortably. Do not drive for 24 hours if you received a medicine to help you relax (sedative). If your health care provider took a tissue sample for testing during the procedure, make sure to get your test results. This is your responsibility. Ask your health care provider or the department performing the test when your results will be ready. Keep all follow-up visits as told by your health care provider. This is important. Contact a health care provider if: You cannot stop coughing. You are not urinating. You are urinating less than usual. Get help right away if: You have trouble swallowing. You cannot eat or drink. You have throat or chest pain that gets worse. You are dizzy or light-headed. You faint. You have nausea or vomiting. You have chills. You have a fever. You have severe abdominal pain. You have black, tarry, or bloody stools. This information is not intended to replace advice given to you by your health care provider. Make sure you discuss any questions you have with your health care provider. Document Released: 07/16/2013 Document Revised: 01/04/2017 Document Reviewed: 06/22/2016 99tests Interactive Patient Education 2019 Conjur. Additional Information VACCINATE! IT SAVES LIVES! Members of the community who have not yet received the COVID-19 vaccine and would like to receive it can visit one of [facility] vaccine clinics. There are many vaccine clinic locations within the [facility]. For locations and available times, please visit [email or web address].[place].gov/. It is important to note that some COVID mobile vaccine clinics are held outdoors and may be canceled in rainy or stormy conditions. To learn more about pediatric vaccinations (ages 5-11), we invite you to visit the [facility] webpage. https://www.[facility].org/pages/8609-Tarjf-Orsttuyeuhi-Wiilgdmgnq-Ghbra-Ccc stions.htmlTo learn more about the COVID-19 vaccine, we invite you to visit the CDC website for a list of frequently asked questions.https://www.cdc.gov/coronavirus/2019-ncov/vaccines/faq.html [employer] Patient Portal Access Instructions: Stay connected with your healthcare team and access your personal medical information anytime with the [employer] Patient Portal. Please follow the directions below to create your [employer] account: 1.Access the email account you provided upon registration to the hospital/physician office.2.Look for an invitation email from [facility].3.Open the email and access the invitation link: AcceptInvitation to [employer].4.Fill in the required [place] to create your account. To access your account, visit [email or web address]. Click the blue button labeled Access Patient Portal and then log in with the username and password that you created in the steps above. You will be able to view your test results, lab results, a summary of your visits, upcoming appointments and more. There is also a convenient messaging option where you can send secure messages to your p rovider. In addition, you will have the ability to download any documents or summaries to your computer and/or send the information securely to a physician. Remember that your healthcare information is confidential, so carefully consider who you will allowto register on the [employer] Patient Portal for access to your information. You can also access the [email or web address] Patient Portal on the [employer] cherelle. Simply click on Patient Portal and then log into your account. If you would like to receive a full copy of your medical records, please contact the [facility] Medical Records Department by calling [phone], Sunday through Sunday between 8 a.m. and 4:30 p.m. HOW TO SAFELY DISPOSE OF PRESCRIPTION MEDICATIONS Please use one of the following methods to safely dispose of your unused medications. 1.Use a drug disposal kit: the drug disposal pouch allows you to safely discard your old and unuseddrugs. Ask your nurse to give you one when you are discharged.2.Visit a local take-back location: Many local pharmacies and police departments have programs that collect old and unwanted prescriptiondrugs. Call your local pharmacy or go to http://[employer]8B2Xy2g to find one close to you.3.Make use of household items: Use cat litter or old coffee grounds to dispose medications if other options arenot available. Mix your drugs with these household products, seal them in an airtight container andthrow it into the garbage. Call [facility]: [phone] to be sure your drugs can be disposed of in this way. Some medicines may require a different approach.4.Never flush your medications down the toilet. IF YOU HAVE BEEN PRESCRIBED AN OPIOID FOR PAIN If you have been prescribed an opioid (such as hydrocodone, oxycodone or morphine), it is critical to understand the possible side effects and risks of opioid pain medications. Even when taken as directed, opioids can have several side effects including: Tolerance, meaning you might need to take more of a medication for the same pain relief. Nausea, vomiting and/or constipation. Sleepiness, dizziness, dry mouth, confusion, depression or itching. Physical dependence, meaning you have withdrawal symptoms when a medication is stopped, can develop within a few days. KNOW YOUR RESPONSIBILITIES It is important to know exactly how much and how often to take the opioid pain medications you are prescribed. Never take opioids in higher amounts or more often than prescribed. Do not combine opioids with alcohol or other drugs that cause drowsiness, such as benzodiazepines, also known as benzos, including diazepam and alprazolam, muscle relaxants or sleep aids. Never sell or share prescription opioids. This is illegal. Store opioids in a secure place and out of reach of others (including children, family, friends and visitors). The last page of this document has been signed and retained as a CHART COPY. Signatures Patient Education Materials Monitored Anesthesia Care, Care After Esophagogastroduodenoscopy, Care After (85542) Medication Leaflets My discharge plan and instructions have been reviewed and explained to me and I,RADHA MAYERS understand my current condition and have read and understand these discharge instructions. I have received a written copy of the plan/instructions. If I have questions, I am aware that I should contact my doctor. 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 Endoscope was passed regularization down to the esophagus there were multiple spasm throughout the esophagus. The Z-line could be reached at about 30 cm from the incisors the stomach was insufflated there was a hiatal hernia for about 4 cm. Duodenum t was unremarkable. Retroflexion performed in the stomach revealed a large hiatal hernia. Back up at the GE junction a sclerotherapy needle was used with 100 units of Botox and 10 cc of fluid it was difficult to maintain position at the GE junction with the severe spasm of the esophagus glucagon 1 mg IV was given. Several minutes injections were made in 4 quadrants of the esophagus with 2 cc approximately 20 units of Botox in each quadrant. 20 units was then injected into theesophageal wall. Scope was withdrawn and the patient tolerated the procedure well Post-Procedure Exam EGD with Botox injection Findings Esophageal spasm with a hiatal hernia Complications None apparent Total Time Approximately 25 minutes Assessment/Plan Orders: Lactated Ringers Infusion 1,000 mL(LR 1,000 mL), 1000 mL, Intravenous onabotulinumtoxinA(Botox), 100 unit(s)= 1 vial(s), Other, prep pharm Bedrest, 02/23/25 12:21:00 EDT, Strict, continuous, Constant order, Lying on side until alert or asordered Bedrest, 02/23/25 12:21:00 EDT, Strict, continuous, Constant order, Lying on side until alert or asordered Call Parameters, 02/23/25 12:21:00 EDT, Notify for vomiting, severe pain, signs of bleeding, severeabdominal pain, distention or rigidity, Constant order Communication Order (scheduled), 02/23/25 11:12:00 EDT, Once, 02/23/25 11:12:00 EDT, Pathology Tissue Request Communication Order (scheduled), 02/23/25 11:12:00 EDT, Once, 02/23/25 11:12:00 EDT, Urine Test or waiver for women of child bearing age Communication Order (scheduled), 02/23/25 11:12:00 EDT, Once, 02/23/25 11:12:00 EDT, Fasting Blood Sugar priot to procedure of patient is diabetic Diet Order, 02/23/25 12:21:00 EDT, Start Meal: Next meal, Clear Liquid Diet, Post exam or after gagreflex returns if EGD, Constant Order, : N/A, : N/A Discharge, 02/23/25 11:12:00 EDT, Discharged to: Home, when able to ambulate and after being seen by physician Discharge Activity, NO activity restrictions, 02/23/25 12:21:00 EDT Discharge Diet, Follow the post-operative/post-procedure diet instructions provided by your physician's office., 02/23/25 12:21:00 EDT Discharge Wound Care, Follow the post-operative/post-procedure wound care instructions provided by your physician's office., 02/23/25 12:21:00 EDT Post Procedure Assessment, 02/23/25 12:21:00 EDT, Stop Date 02/23/25 12:21:00 EDT, [facility] in [facility] until Jayla Score of 12 or Preprocedure Sign Consent, 02/23/25 11:12:00 EDT, Once, For EGD Vital Signs, 02/23/25 12:21:00 EDT, q15min, 1 hour(s), 02/23/25 13:15:00 EDT Vital Signs, 02/23/25 12:21:00 EDT, q30min, 1 hour(s), 02/23/25 13:00:00 EDT Vital Signs PRN, 02/23/25 12:21:00 EDT, PRN order Follow Up/Recommendation Evaluate her swallowing after the Botox injection Digitally Signed by LOUIS PEARCE MD on 02/23/2025 12:25 PM [facility]07-14-2025 Anesthesiology Consult note Patient: RADHA MAYERS Age: 89 years Sex: Female : 1935 Associated Diagnoses: None Author: GERRY BOSCH SUPERVISOR ACCOUNTS RECEIVABLE-WINDOWS 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 SPECIALIST Assessment Postanesthesia assessment Vitals: Vital signs from flowsheet : Vital Signs 02/23/2025 12:15 EDT Heart Rate Monitored 81 bpm bpm Respiratory Rate - Anes 20 br/min br/min Systolic Blood Pressure Non-Invasive 141 mmHg mmHg Diastolic Blood Pressure Non-Invasive 89 mmHg mmHg 02/23/2025 12:10 EDT Heart Rate Monitored 79 bpm bpm Respiratory Rate - Anes 18 br/min br/min Systolic Blood Pressure Non-Invasive 161 mmHg mmHg Diastolic Blood Pressure Non-Invasive 89 mmHg mmHg 02/23/2025 12:05 EDT Heart Rate Monitored 62 bpm bpm Respiratory Rate - Anes 20 br/min br/min Systolic Blood Pressure Non-Invasive 121 mmHg mmHg Diastolic Blood Pressure Non-Invasive 70 mmHg mmHg 02/23/2025 12:02 EDT Systolic Blood Pressure Non-Invasive 151 mmHg mmHg Diastolic Blood Pressure Non-Invasive 74 mmHg mmHg 02/23/2025 12:00 EDT Heart Rate Monitored 63 bpm bpm Respiratory Rate - Anes 0 br/min br/min 02/23/2025 11:13 EDT Temperature Temporal Artery 36.5 DegC Apical Heart Rate 61 bpm Respiratory Rate 16 br/min Systolic Blood Pressure Non-Invasive 171 mmHg HI Diastolic Blood Pressure Non-Invasive 77 mmHg . Mental status: alert & oriented x 4. Respiratory function: lungs are clear to auscultation. Respiratory support: none. CV function: Normal rate. Cardiovascular support: none. Pain. Nausea status: see nursing documentation of medications. Postoperative hydration status: within normal limits. Digitally Signed by GERRY BOSCH on 02/23/2025 12:20 PM [facility]07-14-2025 Note [place] ADMISSION HISTORY AND PHYSICIAL CHIEF COMPLAINT: HISTORY OF PRESENT ILLNESS: REVIEW OF SYSTEMS: ACTIVE PROBLEMS: (39) Abnormal x-ray of forearm (330345815) Anxiety (41417758) Balance problems (6281327464) Bradycardia (94258014) CAD (coronary artery disease) (11423355) Carpal tunnel syndrome, left (96467716) Chronic back pain (733134676) Chronic diastolic heart failure (7363041160) Chronic nausea (8358674217) Chronic systolic heart failure (7237844545) Depression (371548706) Dizziness (6509241862) Dysphagia (79041068) Eosinophilic esophagitis (413821020) Fibromyalgia (77437734) Fracture of left clavicle (28263485) GERD (gastroesophageal reflux disease) (9583972449) Hiatal hernia (764932064) History of compression fracture of vertebral column (6800380835) HTN (hypertension) (7622400257) Hx of fall in Mar with R pelvic hairline fx, R wrist fx and R clavicle fx with surgery Hyperlipidemia (193850626) Hypothyroidism (24155226) Irregular heart beat (134350353) Irritable bowel syndrome with diarrhea (325709644) Large hiatal hernia (517892354) Left foot pain (146196549) Left hip pain (64686397) Left patella fracture (26749279) Lightheadedness (0436402128) Neck pain (926499514) Osteoporosis (102075060) Peripheral edema (928489049) Personal history of COVID-19 (7145910188) RA (rheumatoid arthritis) (671056887) Restless leg syndrome (10083186) Screening for colon cancer (458560380) Stage 3b chronic kidney disease (CKD) (8424071919) Syncope (407133195) MEDICATIONS: Active Inpt Meds: onabotulinumtoxinA (Botox) Start: 02/23/25 7:30:00 EDT, Dose = 100 unit(s), = 1 vial(s), Other, prep pharm, 12 hour(s), Stop: 02/23/25 19:29:00 EDT, 0 Active PRN Meds: None One Time Meds: None Active IV Meds: Lactated Ringers Infusion 1,000 mL (LR 1,000 mL) Start: 02/23/25 11:12:00 EDT, Rate: 50 mL/hr, 02/23/25 11:12:00 EDT ALLERGIES: (3) Darvocet-N 100 Percocet 7.5/325 Ultram FAMILY HISTORY: SOCIAL HISTORY: PHYSICAL EXAM: VITALS: [id number](kg) 02/23 11:1336.5--096616QX76/14 49.1 24 Hr Tmax: 36.5 at 02/23 11:13 36 Hr Tmax: 36.5 at 02/23 11:13 Vital Signs are the last 5 in the past 48 hours. Weights display the last 5 within 7 days. Initial Wt: 02/23 49.1 kg 108 lb Current Wt: 02/23 49.1 kg 108 lb GENERAL: HEENT: CARDIOVASCULAR: RESPIRATORY: ABDOMEN: EXREMETIES: NEUROLOGICAL: PSYCHIATRIC: LABS: No 36hr Lab Data DIAGNOSTICS: IMPRESSION: PLAN: History and Physical Update I have examined the patient; reviewed the H&P and there are no changes to the H&P unless noted below. Digitally Signed by LOUIS PEARCE MD on 02/23/2025 12:00 PM [facility]07-14-2025 Anesthesiology Consult note Patient: RADHA MAYERS Age: 89 years Sex: Female : 1935 Associated Diagnoses: None Author: GERRY BOSCH SUPERVISOR ACCOUNTS RECEIVABLE-WINDOWS TECHNICAL SPECIALIST Preoperative Information Time of last food or liquid consumption: 02/22/2025 23:00:00 Anesthesia history Patient's history: negative. Family's history: negative. Review of Systems Ear/Nose/Mouth/Throat: Negative except as documented in history of present illness. Respiratory: Negative except as documented in history of present illness. Cardiovascular: Negative except as documented in history of present illness. Gastrointestinal: Negative except as documented in history of present illness. Genitourinary: Negative except as documented in history of present illness. Endocrine: Negative except as documented in history of present illness. Musculoskeletal: Negative except as documented in history of present illness. Integumentary: Negative except as documented in history of present illness. Neurologic: Negative except as documented in history of present illness. Health Status Allergies: Allergic Reactions (Selected) Severity Not Documented Darvocet-N 100- No reactions were documented. Percocet 7.5/325- No reactions were documented. Ultram- No reactions were documented., Allergies (3) ActiveSeverityReaction Darvocet-N 100None Documented Percocet 7.5/325None Documented UltramNone Documented Current medications: (Selected) Inpatient Medications Ordered Botox: 100 unit(s), 1 vial(s), Other, prep pharm Future Botox: 100 unit(s), Intramuscular, Once Prescriptions Prescribed DME MISCellaneous: See Instructions, bilateral knee high compression hose 20-30 medium, Dx: R60.9, 1 EA, 0 Refill(s) Prolia 60 mg/mL subcutaneous solution: 60 mg, 1 mL, Subcutaneous, q6mo, Diagnosis: M81.0, 1 mL, 0 Refill(s) amLODIPine 5 mg oral tablet: 0.5, Oral, q12hr, 90 tab(s), 3 Refill(s) gabapentin 100 mg oral capsule: 100 mg, 1 cap(s), Oral, qDay, for 90 day(s), 90 cap(s), 1 Refill(s) ibuprofen 400 mg oral tablet: 400 mg, 1 tab(s), Oral, TID, with food, PRN: for pain, 90 tab(s), 0 Refill(s) levothyroxine 100 mcg (0.1 mg) oral tablet: 100 mcg, 1 tab(s), Oral, qDay, 90 tab(s), 3 Refill(s) loperamide 2 mg oral capsule: 4 mg, 2 cap(s), Oral, BID, 360 cap(s), 1 Refill(s) sertraline 50 mg oral tablet: 100 mg, 2 tab(s), Oral, qDay, 180 tab(s), 3 Refill(s) spironolactone 25 mg oral tablet: 25 mg, 1 tab(s), Oral, qDay, 90 tab(s), 3 Refill(s) Documented Medications Documented Nitrostat 0.4 mg sublingual tablet: 0.4 mg, 1 tab(s), Sublingual, q5min, PRN: as needed for chest pain, 100 tab(s), 0 Refill(s) Probiotic: 0 Refill(s) Tylenol Extra Strength 500 mg oral tablet: 1,000 mg, 2 tab(s), Oral, q6hr, 0 Refill(s) aspirin 81 mg oral delayed release tablet: 81 mg, 1 tab(s), Oral, qDay, 0 Refill(s) metoprolol tartrate 25 mg oral tablet: 25 mg, 1 tab(s), Oral, BID, 180 tab(s), 0 Refill(s) pantoprazole 40 mg oral enteric coated tablet: 40 mg, 1 tab(s), Oral, qDay, 90 tab(s), 0 Refill(s) traMADol 25 mg oral tablet: 25 mg, 1 tab(s), Oral, q12h, not to exceed 400 mg/day, PRN: as needed for pain, 0 Refill(s), Medications (1) Active Scheduled: (1) botulinum toxin type A 100 units 100 unit(s) 1 vial(s), Other, prep pharm Continuous: (0) PRN: (0) Problem list: Medical Anxiety / SNOMED CT 86076847 / Confirmed Bradycardia / SNOMED CT 28147535 / Confirmed Carpal tunnel syndrome, left / SNOMED CT 74165831 / Confirmed Chronic diastolic heart failure / SNOMED CT 6740443965 / Confirmed Stage 3b chronic kidney disease (CKD) / SNOMED CT 1378310852 / Confirmed Chronic back pain / SNOMED CT 022056457 / Confirmed Chronic systolic heart failure / SNOMED CT 0477229312 / Confirmed CAD (coronary artery disease) / SNOMED CT 75586011 / Confirmed Dizziness / SNOMED CT 5688241161 / Confirmed Dysphagia / SNOMED CT 85907964 / Confirmed Eosinophilic esophagitis / SNOMED CT 393170917 / Confirmed Fibromyalgia / SNOMED CT 17258326 / Confirmed Left foot pain / SNOMED CT 913443894 / Confirmed Fracture of left clavicle / SNOMED CT 76644737 / Confirmed Left patella fracture / SNOMED CT 76619601 / Confirmed GERD (gastroesophageal reflux disease) / SNOMED CT 2300427102 / Confirmed History of compression fracture of vertebral column / SNOMED CT 9330581132 / Confirmed Large hiatal hernia / SNOMED CT 648277455 / Confirmed Hiatal hernia / SNOMED CT 106812194 / Confirmed Left hip pain / SNOMED CT 38162313 / Confirmed Personal history of COVID-19 / SNOMED CT 5565763968 / Confirmed Hyperlipidemia / SNOMED CT 277018387 / Confirmed HTN (hypertension) / SNOMED CT 4517577896 / Confirmed Hypothyroidism / SNOMED CT 17022087 / Confirmed Balance problems / SNOMED CT 3624799032 / Confirmed Irregular heart beat / SNOMED CT 847072401 / Confirmed Irritable bowel syndrome with diarrhea / SNOMED CT 580547665 / Confirmed Lightheadedness / SNOMED CT 7585152319 / Confirmed Chronic nausea / SNOMED CT 4228703136 / Confirmed Neck pain / SNOMED CT 641927408 / Confirmed Osteoporosis / SNOMED CT 385509728 / Confirmed Screening for colon cancer / SNOMED CT 760457423 / Confirmed Peripheral edema / SNOMED CT 976160761 / Confirmed Abnormal x-ray of forearm / SNOMED CT 998564358 / Confirmed Depression / SNOMED CT 924310063 / Confirmed Restless leg syndrome / SNOMED CT 06004640 / Confirmed RA (rheumatoid arthritis) / SNOMED CT 911878381 / Confirmed Syncope / SNOMED CT 263467680 / Confirmed Resolved: Cardiac catheterization, left heart / SNOMED CT 224581640 Resolved: Cellulitis of left lower extremity / SNOMED CT 8854411011 Resolved: COVID-19 virus infection / SNOMED CT 2652628103 Resolved: DVT (deep venous thrombosis) / SNOMED CT 708967386 Resolved: SOB (shortness of breath) / SNOMED CT 023873798 Resolved: Epigastric pain / SNOMED CT 767248366 Resolved: Hyperkalemia / SNOMED CT 01280658 Resolved: Arm laceration / SNOMED CT 135685930 Resolved: Pleural effusion / SNOMED CT 47515959 Canceled: Acute bronchitis / SNOMED CT 61127416 Canceled: Acute bacterial rhinosinusitis / SNOMED CT 1830331870 Canceled: Left leg cellulitis / SNOMED CT 6532627596 Canceled: Chronic kidney disease / SNOMED CT 6148338851 Canceled: CHF (congestive heart failure) / SNOMED CT 81196561 Canceled: Contusion of right elbow / SNOMED CT 572634833 Canceled: Contusion of left elbow / SNOMED CT 607522319 Canceled: Contusion of rib on right side / SNOMED CT 5829416232 Canceled: Depressive disorder / SNOMED CT 29355250 Canceled: Diarrhea / SNOMED CT 150344748 Canceled: Shortness of breath / SNOMED CT 962052308 Canceled: Fall at home / SNOMED CT 81894909 Canceled: Fatigue / SNOMED CT 663937081 Canceled: Fibromyalgia / SNOMED CT 75959895 Canceled: Nondisplaced fracture of left patella / SNOMED CT 42375712 Canceled: Right rib fracture / SNOMED CT 14926285 Canceled: Acute kidney injury / SNOMED CT 21104268 Canceled: Insomnia due to stress / SNOMED CT 116528239 Canceled: Insomnia / SNOMED CT 199891847 Canceled: IBS (irritable bowel syndrome) / SNOMED CT 82462016 Canceled: Nausea in adult / SNOMED CT 2909048936 Canceled: Depression / SNOMED CT 095793456 Canceled: Scalp laceration / SNOMED CT 310229155 Canceled: Bilateral serous otitis media / SNOMED CT 358364888 Canceled: Strain of sternocleidomastoid muscle / SNOMED CT 610200449, Active Problems (39) Abnormal x-ray of forearm Anxiety Balance problems Bradycardia CAD (coronary artery disease) Carpal tunnel syndrome, left Chronic back pain Chronic diastolic heart failure Chronic nausea Chronic systolic heart failure Depression Dizziness Dysphagia Eosinophilic esophagitis Fibromyalgia Fracture of left clavicle GERD (gastroesophageal reflux disease) Hiatal hernia History of compression fracture of vertebral column HTN (hypertension) Hx of fall in Aug with R pelvic hairline fx, R wrist fx and R clavicle fx with surgery Hyperlipidemia Hypothyroidism Irregular heart beat Irritable bowel syndrome with diarrhea Large hiatal hernia Left foot pain Left hip pain Left patella fracture Lightheadedness Neck pain Osteoporosis Peripheral edema Personal history of COVID-19 RA (rheumatoid arthritis) Restless leg syndrome Screening for colon cancer Stage 3b chronic kidney disease (CKD) Syncope Histories Past Medical History: Active Syncope (956525311) Chronic back pain (134284308) Resolved Cardiac catheterization, left heart (428018646): Onset on 02/07/2013 at 77 years. Resolved. SOB (shortness of breath) (982165630): Resolved. DVT (deep venous thrombosis) (953755383): Resolved. Pleural effusion (63944368): Resolved. Arm laceration (289847647): Resolved. COVID-19 virus infection (2735794208): Resolved. Cellulitis of left lower extremity (3855135380): Resolved. Hyperkalemia (96120633): Resolved. Epigastric pain (636612342): Resolved. Family History: Hypertension Mother Father Heart disease Mother Father Blood disorder Father Stroke Mother Diabetes Mother Procedure history: History of left hip replacement (992853577450047) on 02/07/2018 at 82 Years. Cholecystectomy (14651865). Cardiac catheterization (53839199). Angioplasty of artery (018892089). Knee replacement (508039012). Appendectomy (510232461). Hysterectomy (341057384). Cataract extraction (86223924). Tonsillectomy (657109676). Kyphoplasty of fracture of cervical spine using computed tomography (CT) guidance (9913354840). Social History: Social & Psychosocial Habits Alcohol 12/24/2024Risk Assessment: Denies Alcohol Use 12/24/2024 Use: Never Employment/School 12/24/2024 Status: Retired Substance Abuse 12/24/2024Risk Assessment: Denies Substance Abuse 12/24/2024 Use: Never Tobacco 12/24/2024 Tobacco Use: Never (less than 100 in l Exposure to Tobacco Smoke Lives in non-smoking home Exercise Comment: none - 05/19/2019 11:51 - Dory Ziegler LPN Home/Environment 12/24/2024 Domestic Concerns None Living situation: Home/Independent Nutrition/Health 12/24/2024 Caffeine intake amount: tea 1 daily Physical Examination No qualifying data available General: Alert and oriented. Airway: Normal neck range of motion. Mallampati classification: II (soft palate, fauces, uvula visible). Head: Normocephalic. Dentition Evaluation: Intact, Own teeth. Neck: Full range of motion. Respiratory: Lungs are clear to auscultation. Cardiovascular: Normal rate. Heart Sounds: Normal. Gastrointestinal: Soft. Musculoskeletal Normal range of motion. Integumentary: Intact, Warm, Dry. Neurologic: Alert, Oriented. Review / Management Results review: No qualifying data available , Lab results 02/23/2025 10:50 EDT SN - MN - Medication botulinum toxin type A 100 units SN - MN - Route of Administration Local SN - MN - By (Single) SN - MN - By (Single) 02/23/2025 10:49 EDT SN - Proc - Anesthesia Type MAC SN - Proc - EBL 0 mL SN - Proc - Actual Procedure ESOPHAGOGASTRODUODENOSCOPY WITH BOTOX INJECTION 02/23/2025 10:48 EDT SN - PP - Body Position Lateral Right Side-up Standard Intra-op 02/23/2025 10:47 EDT SN - GCD - Post-operative Diagnosis ESOPHAGEAL DYSMOBILITY SN - GCD - Case Level Flat-Fee 02/23/2025 10:46 EDT SN - CAt - Case Attendee SN - CAt - Case Attendee SN - CAt - Case Attendee SN - CAt - Case Attendee SN - CAt - Case Attendee SN - CAt - Case Attendee SN - CAt - Case Attendee SN - CAt - Case Attendee SN - CAt - Role Performed [employer] SN - CAt - Role Performed Procedure Nurse SN - CAt - Role Performed WINDOWS TECHNICAL SPECIALIST SN - CAt - Role Performed Primary Surgeon . Assessment and Plan [place] [employer]hesi[employer] (ASA) physical status classification: Class III. Anesthetic Preoperative Plan Premedication: intravenous. Anesthetic technique: MAC. Induction: intravenously. Maintenance airway: Mask. Risks discussed: nausea, vomiting, headache, sore throat, dental injury, hypotension, allergic reaction, serious complications. Informed consent: signed by patient. Digitally Signed by GERRY BOSCH on 02/23/2025 10:50 AM Digitally Signed by GERRY BOSCHWINDOWS TECHNICAL SPECIALIST on 02/23/2025 11:53 AM [facility]06-09-2025 Nurse Progress note patient tolerated prolia injection without signs or symptoms of a reaction Digitally Signed by Juli Clifford RN on 01/19/2025 02:16 PM [facility]04-19-2025 [facility] Medical Records Department [address] [place] [address] Discharge Summary 11/29/24 1101 MR#: [id number] Acct: [id number] Name: RADHA MAYERS Rep #: [id number] : 1935 89 From: Britt Guthrie MD PCP: Dr. Rehan Lucero, Status:DIS SUZIE Location: [place] [address] Providers Date of Admission: 11/27/24 Date of Discharge: 11/29/24 Primary Care Physician: Dr. Rehan Lucero, DO Reason For Visit: FALL W. CLAVICLE FRACTURE DEBILITY Diagnosis Discharge Diagnosis (1) Closed fracture of left clavicle: Status: Acute Code(s): S42.002A - Fracture of unspecified part of left clavicle, initial encounter for closed fracture (2) Fall: Status: Acute Code(s): W19.XXXA - Unspecified fall, initial encounter Plan #Debility and weakness due to left clavicular fracture and recent left patellar fracture * Admitted with a complaint of mechanical fall. Imaging done showed acute comminuted inferiorly displaced fracture of the distal left clavicle. * PT/OT on board. * On PO tylenol, tramadol and ibuprofen prn as well as IV morphine. * fall precautions * #Left patellar fracture * recently had left patellar fracture * left knee brace in place. * PT/OT on board * fall precautions * #Paroxysmal afib: on lopressor. Not anticoagulated due to frequent falls. #History of CAD s/p stents: on aspirin. #Depression; on sertraline #GERD: on PPI #Hypothyroidism: on synthroid DVT prophylaxis: lovenox DIsposition: will benefit from placement. PT/OT On board. Medications at Discharge Home Medications aspirin 81 mg tablet,delayed release (Adult Aspirin Regimen) 81 mg PO DAILY blood thinner 04/24/19 pantoprazole 40 mg tablet,delayed release 40 mg PO DAILY gerd 01/10/21 loperamide 2 mg capsule (Imodium A-D) 2 mg PO Q6H PRN Diarrhea 04/18/22 sertraline 50 mg tablet 50 mg PO DAILY mood 04/18/22 gabapentin 100 mg capsule 100 mg PO DAILY pain 12/07/23 metoprolol tartrate 25 mg tablet 25 mg PO BID heart #180 tabs 01/28/24 levothyroxine 100 mcg tablet 100 mcg PO DAILY thyroid 02/17/24 amlodipine 5 mg tablet 5 mg PO DAILY bp #90 TABLETS 04/04/24 nitroglycerin 0.4 mg sublingual tablet 0.4 mg sublingual Q5-15M #30 tabs 04/10/24 spironolactone 25 mg tablet 25 mg PO DAILY water pill #90 tabs 07/14/24 denosumab 60 mg/mL subcutaneous syringe (Prolia) 60 mg subcut [id number] oa 11/26/24 ibuprofen 400 mg tablet 400 mg PO TID PRN pain 11/26/24 tramadol 50 mg tablet 50 mg PO Q8H PRN pain 5 days #15 tabs 11/29/24 Hospital Course Operations None Procedures None Summary of Care Provided Minutes Spent on Discharge: 45 Hospital Course: Patient is an 89-year-old female with past medical history as outlined was admitted through the ED on 11/27/2024 with complaint of left shoulder pain after mechanical fall. Patient lived at home with her daughter and had been having recurrent falls. She was following with Dr. Ziegler of orthopedic surgery for recent left patella fracture due to mechanical fall. This had happened in late September and she was discharged home but subsequently required SNF placement due to debility and weakness and failure to thrive. She had been sent back home from the SNF a few days prior to this admission. Patient's daughter was gone for about 10 to 15 minutes but came back to find patient on the floor. She was unable to get up and had significant left shoulder pain so EMS was called. In the ED imaging showed an acute comminuted inferior displaced fracture of the distal left clavicle. She was therefore admitted to be managed for debility and weakness due to mechanical falls with resultant left clavicular fracture. The left upper extremity was put in a sling and patient and family were counseled that management for this will be nonoperative. She was skilled as needing further therapy. She was placed on tramadol as needed as well as Tylenol for pain. Patient was discharged to [facility] on 11/29/2024. She is follow-up with her primary care doctor within 1 to 2 weeks. Patient was counseled again that the surgery would be nonoperative and she needed to keep the arm in the sling until followed up with the PCP and orthopedic surgery. She was given p.o. tramadol 50 mg 3 times daily as needed for total of 15 tablets for 5 days. OARRS score was checked and no red flags were seen. Patient seen and examined prior to discharge. Her daughter was by her bedside. She had no active complaints. Pain was fairly well-controlled. Review of systems otherwise negative. Labs and vitals reviewed. Medication reviewed and reconciled. Physical Exam Const alert, oriented x3 and no apparent distress Constitutional Narrative: frail, weak General Appearance: cooperative and comfortable Orientation / Consciousness: awake Exam Limitations: no limitations HEENT normocephalic, head/scalp atraumatic (more content not included)...[facility]04-19-2025 Discharge summary [facility] Medical Records Department [address] [place] [address] [facility] MR#: [id number] Acct: [id number] Name: RADHA MAYERS Rep #:[id number] : 1935 89 From: Birtt Guthrie MD PCP: Dr. Rehan Lucero, DO Status:ADM SUZIE Certification of patient admission REQUIRED AT TIME OF ADMISSION. I CERTIFY THAT POST-HOSPITAL F SERVICES ARE REQUIRED TO BE GIVEN ON AN IN-PATIENT BASIS BECAUSE OF THE ABOVE NAMED PATIENT'S NEED FOR JAIL CARE ON A CONTINUING BASIS FOR THE CONDITION(S) FOR WHICH HE/SHE WAS RECEIVING IN-PATIENT HOSPITAL SERVICES PRIOR TO HIS/HER TRANSFER TO THE [facility]. 11/29/24 0748 Diet Diet Order/Speech Therapy: 11/27/24 22:31 Diet: Regular - General Food consistency:: Regular Liquid Consistency:: Regular/Thin Routine Orders/Code Status Enema Type: Fleetz Enema Frequency: Daily PRN Suppository Type: Dulcolax 10mg Suppository Frequency: Daily PRN DC O2, CPAP, BIPAP needs Home O2 Discharge instructions: No Wound(s) left lat wrist: Wound Type: Laceration Therapies Weight Bearing: Weight bearing as tolerated Physical Therapy: Eval and Treat Occupational Therapy: Eval and Treat Problem/Diagnosis (1) Closed fracture of left clavicle: Status: Acute Code(s): S42.002A - Fracture of unspecified part of left clavicle, initial encounter for closed fracture (2) Fall: Status: Acute Code(s): W19.XXXA - Unspecified fall, initial encounter Plan #Debility and weakness due to left clavicular fracture and recent left patellar fracture * Admitted with a complaint of mechanical fall. Imaging done showed acute comminuted inferiorly displaced fracture of the distal left clavicle. * PT/OT on board. * On PO tylenol, tramadol and ibuprofen prn as well as IV morphine. * fall precautions * #Left patellar fracture * recently had left patellar fracture * left knee brace in place. * PT/OT on board * fall precautions * #Paroxysmal afib: on lopressor. Not anticoagulated due to frequent falls. #History of CAD s/p stents: on aspirin. #Depression; on sertraline #GERD: on PPI #Hypothyroidism: on synthroid DVT prophylaxis: lovenox DIsposition: will benefit from placement. PT/OT On board. Allergies/Procedures Done in Hospital Allergies atorvastatin (From Lipitor) Adverse Reaction (Verified 11/27/24 17:55) myalgia oxycodone (From Percocet) Adverse Reaction (Verified 11/27/24 17:55) Unknown propoxyphene (From Darvocet-N 100) Adverse Reaction (Verified 11/27/24 17:55) Unknown Procedures: None Type of Care/Length of Stay Estimated LOS: Convalescent Care Less Than 30 days Type of Care Needed: Skilled Rehab Potential: Fair Prognosis: Fair Additional Orders/Day of Discharge Day of Discharge: 11/29/24 Discharge Plan Admission Admit Date/Time: 11/27/24 21:37 Primary Reason for Your Visit: mechanical fall with fractured clavicle Attending Provider: Britt Guthrie Primary Care Provider: Rehan Lucero Consulting Providers: Aguilar Gale Instructions Patient Instructions: ED Fracture, Clavicle Discharge Orders/Prescriptions Prescriptions: New tramadol 50 mg tablet 50 mg PO Q8H PRN (Reason: pain) 5 Days Qty: 15 0RF Continued aspirin [Adult Aspirin Regimen] 81 mg tablet,delayed release (DR/EC) 81 mg PO DAILY sertraline 50 mg tablet 50 mg PO DAILY loperamide [Imodium A-D] 2 mg capsule 2 mg PO Q6H PRN (Reason: Diarrhea) gabapentin 100 mg capsule 100 mg PO DAILY Rx Instructions: qod nitroglycerin 0.4 mg tablet, sublingual 0.4 mg SUBLINGUAL Q5-15M Qty: 30 0RF ibuprofen 400 mg tablet 400 mg PO TID PRN (Reason: pain) Prolia 60 mg/mL syringe 60 mg subcut [id number] pantoprazole 40 mg tablet,delayed release (DR/EC) 40 mg PO DAILY Patient Comments: TAKE 1 TABLET BY MOUTH EVERY MORNING BEFORE MEALS levothyroxine 100 mcg tablet 100 mcg PO DAILY metoprolol tartrate 25 mg tablet 25 mg PO BID Qty: 180 3RF amlodipine 5 mg tablet 5 mg PO DAILY Qty: 90 3RF spironolactone 25 mg tablet 25 mg PO DAILY Qty: 90 3RF Discontinued tramadol 50 mg tablet 25 - 50 mg PO TID PRN PRN (Reason: pain) Referrals / Follow Up: Rehan Lucero DO [Primary Care Provider] - Within 1 Week Disposition Disposition (needs filled in before D/C Order can be placed): [facility] 11/29/24 0748 Cosigner Signature (if applicable): CC: Dr. Aguilar Gale DO; Dr. Rehan Lucero DO ~ [facility]04-18-2025 Progress note Author [facility] Note Date/Time November 28, 2024 3:4 7pm [facility] System Medical Records Department [address] [place] [address] Progress Note 11/28/24 1317 MR#: [id number] Acct: [id number] Name: RADHA MAYERS Rep #:[id number] : 1935 89 From: Britt Guthrie MD PCP: Dr. Rehan Lucero DO Status:ADM SUZIE Location: AL3 [id number] Subjective Subjective Patient seen and examined. She complained of left shoulder and clavicular pain due to the clavicle fracture. She said she had been falling at home, and said she moved in with her daughter due to frequent falls. She was recently in a SNF and is looking forward to going back to that SNF if she requires SNF. She has remained hemodynamically stable. Objective Data Objective Data Vital Signs: Vital Signs Temp Pulse Resp BP Pulse Ox O2 Del Method 97.6 F L 63 16 155/80 H 93 Room Air 11/28/24 09:00 11/28/24 09:15 11/28/24 09:00 11/28/24 09:15 11/28/24 09:00 11/28/24 09:31 Oxygen Delivery Method Room Air Weight: 106 lb 11.26 oz Body Mass Index (BMI) 21.5 Intake & Output: Intake and Output for Last 24 Hours 11/26/24 11/27/24 11/28/24 23:59 23:59 23:59 Intake Total 1300 / 1300 Output Total 350 / 350 Balance 950 / 950 Lab / Micro Data 11/28/24 05:25 11/28/24 05:25 Labs: Laboratory Results - last 24 hr 11/27/24 18:08: WBC 5.2, RBC 3.97 L, Hgb 12.0, Hct 36.5 L, MCV 91.9, MCH 30.2, MCHC 32.9, RDW Std Deviation 43.1, RDW Coeff of Gabi 12.8, Plt Count 233, MPV 12.1 H, Immature Gran % (Auto) 1.200 H, Neut % (Auto) 59.3, Lymph % (Auto) 23.8,[place] % (Auto) 12.2 H, Eos % (Auto) 2.5, Baso % (Auto) 1.0, Absolute Neuts (auto)3.1, Absolute Lymphs (auto) 1.23, Nucleated RBC % 0, Sodium 140, Potassium 4.4, Chloride 104, Carbon Dioxide 24.0, Anion Gap 11, BUN 17, Creatinine 1.19, Estim Creat Clear Calc 23.47 L, Est GFR (MDRD) Non-Af 44 L, BUN/Creatinine Ratio 14.3,Glucose 91, Calcium 9.5 11/28/24 05:25: WBC 8.2, RBC 3.43 L, Hgb 10.3 L, Hct 31.2 L, MCV 91.0, MCH 30.0,MCHC 33.0, RDW Std Deviation 42.2, RDW Coeff of Gabi 12.7, Plt Count 225, MPV 11.6, Sodium 138, Potassium 4.2, Chloride 106, Carbon Dioxide 20.8 L, Anion Gap 11, BUN 16, Creatinine 1.16, Estim Creat Clear Calc 24.08 L, Est GFR (MDRD) Non-Af 45 L, BUN/Creatinine Ratio 14.1, Glucose 96, Calcium 8.8 Radiography Diagnostic Testing: Radiology Impression Shoulder X-Ray 11/27/24 18:54 IMPRESSION: Acute comminuted inferiorly displaced fracture of the distal left clavicle. Reading Location: [facility] Thoracic Spine CT 11/27/24 18:54 IMPRESSION: No acute fracture or subluxation. Extensive compression fracture deformity of the thoracic spine as described above. Large hiatal hernia with circumferential wall thickening of the distal esophagus. Esophagram may be helpful for further characterization. Patchy bibasilar pulmonary infiltrates. Reading Location: [facility] Brain CT 11/27/24 19:16 IMPRESSION: NO ACUTE INTRACRANIAL HEMORRHAGE Reading Location: [facility] Knee X-Ray 11/27/24 19:16 IMPRESSION: No change in healing fracture of the patella. No new fracture. Moderate arthrosis. Reading Location: [facility] Lumbar Spine CT 11/27/24 19:25 IMPRESSION: No acute fracture or subluxation. Multiple chronic compression fractures with vertebroplasty at L1. Degenerative disc disease as described above. Reading Location: [facility] Cervical Spine CT 11/27/24 19:30 IMPRESSION: No acute fracture. Slight anterolisthesis of C4 on C5. Reading Location: [facility] Clavicle X-Ray 11/27/24 20:01 IMPRESSION: Acute comminuted inferiorly displaced fracture of the distal left clavicle. Reading Location: [facility] Physical Exam Const alert and oriented x3 Constitutional Narrative: frail, weak General Appearance: cooperative HEENT normocephalic, head/scalp atraumatic, moist oral mucous membranes and oropharynxnormal Eyes PERRL and EOMs intact bilaterally Neck no lymphadenopathy, supple and no JVD Lymph Lymphatic: no lymphadenopathy noted and no lymphedema noted Resp normal respiratory effort, normal air movement and clear to auscultation bilaterally Cardio regular rate, regular rhythm, S1 normal heart sound, S2 normal heart sound and no murmurs GI normal to inspection, nondistended, normoactive bowel sounds, soft to palpation,non-tender and non-distended Extremity Extremity Narrative: LUE in a sling. Skin General Skin Exam: no breakdown Neuro CN's II-XII intact bilaterally, no focal motor deficits and no sensory deficits noted Motor Exam: general weakness Psych thought process normal and cooperative Appearance: appropriate Assessment & Plan Assessment/Plan (1) Closed fracture of left clavicle: (2) Fall: PLAN: Plan #Debility and weakness due to left clavicular fracture and recent left patellar fracture * Admitted with a complaint of mechanical fall. Imaging done showed acute comminuted inferiorly displaced fracture of the distal left clavicle. * PT/OT on board. * On PO tylenol, tramadol and ibuprofen prn as well as IV morphine. * fall precautions * #Left patellar fracture * recently had left patellar fracture * left knee brace in place. * PT/OT on board * fall precautions * #Paroxysmal afib: on lopressor. Not anticoagulated due to frequent falls. #History of CAD s/p stents: on aspirin. #Depression; on sertraline #GERD: on PPI #Hypothyroidism: on synthroid DVT prophylaxis: lovenox DIsposition: will benefit from placement. PT/OT On board. Charges/Coding Visit Charges Inpatient E&M: 96360 Subs Hosp L2 11/28/24 1547 <Electronically signed by Britt Guthrie MD> Britt Guthrie MD Cosigner Signature (if applicable): CC: ~ Signed [facility] Work Phone: [phone] 919-324404-18-2025 Progress note [facility] Medical Records Department [address] [place] [address] Progress Note 11/28/24 1317 MR#: [id number] Acct: [id number] Name: RADHA MAYERS Rep #:[id number] : 1935 89 From: Britt Guthrie MD PCP: Dr. Rehan Lucero, DO Status:ADM SUZIE Location: [place] [address] Subjective Subjective Patient seen and examined. She complained of left shoulder and clavicular pain due to the clavicle fracture. She said she had been falling at home, and said she moved in with her daughter due to frequent falls. She was recently in a SNF and is looking forward to going back to that SNF if she requires SNF. She has remained hemodynamically stable. Objective Data Objective Data Vital Signs: Vital Signs Temp Pulse Resp BP Pulse Ox O2 Del Method 97.6 F L 63 16 155/80 H 93 Room Air 11/28/24 09:00 11/28/24 09:15 11/28/24 09:00 11/28/24 09:15 11/28/24 09:00 11/28/24 09:31 Oxygen Delivery Method Room Air Weight: 106 lb 11.26 oz Body Mass Index (BMI) 21.5 Intake & Output: Intake and Output for Last 24 Hours 11/26/24 11/27/24 11/28/24 23:59 23:59 23:59 Intake Total 1300 / 1300 Output Total 350 / 350 Balance 950 / 950 Lab / Micro Data 11/28/24 05:25 11/28/24 05:25 Labs: Laboratory Results - last 24 hr 11/27/24 18:08: WBC 5.2, RBC 3.97 L, Hgb 12.0, Hct 36.5 L, MCV 91.9, MCH 30.2, MCHC 32.9, RDW Std Deviation 43.1, RDW Coeff of Gabi 12.8, Plt Count 233, MPV 12.1 H, Immature Gran % (Auto) 1.200 H, Neut % (Auto) 59.3, Lymph % (Auto) 23.8,[place] % (Auto) 12.2 H, Eos % (Auto) 2.5, Baso % (Auto) 1.0, Absolute Neuts (auto)3.1, Absolute Lymphs (auto) 1.23, Nucleated RBC % 0, Sodium 140, Potassium 4.4, Chloride 104, Carbon Dioxide 24.0, Anion Gap 11, BUN 17, Creatinine 1.19, Estim Creat Clear Calc 23.47 L, Est GFR (MDRD) Non-Af 44 L, BUN/Creatinine Ratio 14.3,Glucose 91, Calcium 9.5 11/28/24 05:25: WBC 8.2, RBC 3.43 L, Hgb 10.3 L, Hct 31.2 L, MCV 91.0, MCH 30.0,MCHC 33.0, RDW Std Deviation 42.2, RDW Coeff of Gabi 12.7, Plt Count 225, MPV 11.6, Sodium 138, Potassium 4.2, Chloride 106, Carbon Dioxide 20.8 L, Anion Gap 11, BUN 16, Creatinine 1.16, Estim Creat Clear Calc 24.08 L, Est GFR (MDRD) Non-Af 45 L, BUN/Creatinine Ratio 14.1, Glucose 96, Calcium 8.8 Radiography Diagnostic Testing: Radiology Impression Shoulder X-Ray 11/27/24 18:54 IMPRESSION: Acute comminuted inferiorly displaced fracture of the distal left clavicle. Reading Location: [facility] Thoracic Spine CT 11/27/24 18:54 IMPRESSION: No acute fracture or subluxation. Extensive compression fracture deformity of the thoracic spine as described above. Large hiatal hernia with circumferential wall thickening of the distal esophagus. Esophagram may behelpful for further characterization. Patchy bibasilar pulmonary infiltrates. Reading Location: [facility] Brain CT 11/27/24 19:16 IMPRESSION: NO ACUTE INTRACRANIAL HEMORRHAGE Reading Location: [facility] Knee X-Ray 11/27/24 19:16 IMPRESSION: No change in healing fracture of the patella. No new fracture. Moderate arthrosis. Reading Location: [facility] Lumbar Spine CT 11/27/24 19:25 IMPRESSION: No acute fracture or subluxation. Multiple chronic compression fractures with vertebroplasty at L1. Degenerative disc disease as described above. Reading Location: [facility] Cervical Spine CT 11/27/24 19:30 IMPRESSION: No acute fracture. Slight anterolisthesis of C4 on C5. [facility] Clavicle X-Ray 11/27/24 20:01 IMPRESSION: Acute comminuted inferiorly displaced fracture of the distal left clavicle. Reading Location: [id number] Physical Exam Const alert and oriented x3 Constitutional Narrative: frail, weak General Appearance: cooperative HEENT normocephalic, head/scalp atraumatic, moist oral mucous membranes and oropharynxnormal Eyes PERRL and EOMs intact bilaterally Neck no lymphadenopathy, supple and no JVD Lymph Lymphatic: no lymphadenopathy noted and no lymphedema noted Resp normal respiratory effort, normal air movement and clear to auscultation bilaterally Cardio regular rate, regular rhythm, S1 normal heart sound, S2 normal heart sound and no murmurs GI normal to inspection, nondistended, normoactive bowel sounds, soft to palpation,non-tender and non-distended Extremity Extremity Narrative: LUE in a sling. Skin General Skin Exam: no breakdown Neuro CN's II-XII intact bilaterally, no focal motor deficits and no sensory deficits noted Motor Exam: general weakness Psych thought process normal and cooperative Appearance: appropriate Assessment & Plan Assessment/Plan (1) Closed fracture of left clavicle: (2) Fall: PLAN: Plan #Debility and weakness due to left clavicular fracture and recent left patellar fracture * Admitted with a complaint of mechanical fall. Imaging done showed acute comminuted inferiorly displaced fracture of the distal left clavicle. * PT/OT on board. * On PO tylenol, tramadol and ibuprofen prn as well as IV morphine. * fall precautions * #Left patellar fracture * recently had left patellar fracture * left knee brace in place. * PT/OT on board * fall precautions * #Paroxysmal afib: on lopressor. Not anticoagulated due to frequent falls. #History of CAD s/p stents: on aspirin. #Depression; on sertraline #GERD: on PPI #Hypothyroidism: on synthroid DVT prophylaxis: lovenox DIsposition: will benefit from placement. PT/OT On board. Charges/Coding Visit Charges Inpatient E&M: 10511 Subs Hosp L2 11/28/24 4913 Britt Guthrie MD Cosign Signature (if applicable): CC: ~ Signed [facility]04-18-2025 History and physical note Author Aguilar Gale [facility] Note Date/Time November 28, 2024 3:5 3am [facility] Medical Records Department [address] [place] [address] H&P Exam - Hospitalist 11/27/242134 MR#: [id number] Acct: [id number] Name: RADHA MAYERS Rep #:[id number] : 1935 89 From: Aguilar kaba DO PCP: Dr. Rehan Lucero, DO Status:ADM SUZIE Location: [place] [id number] HPI - General General Date of Admission: 11/27/24 Date of Service: 11/27/24 Chief Complaint: Fall with left shoulder pain HPI Narrative RADHA MAYERS, is a 89 F who presented to [facility] ED on 11/27/24 with left shoulder pain after a fall at home. Patient lives at home with her daughter. Has been following with Dr. Karlos Ziegler for recent left patellar fracture. Patient was seen in our ED in late September for this patellar fracture and was discharged home, but per patient and daughter she thenrequired SNF placement and only returned back home a few days ago. She continues to wear left knee brace for the patellar fracture. Earlier today daughter was gone for only 10 to 15 minutes but came back to find patient on thefloor. Patient was awake and alert at that time and it appears most consistent with a mechanical fall. She was unable to get up and had significant left shoulder pain, so EMS was called to bring patient in for further evaluation. Inthe ED she was mildly hypertensive but otherwise stable on room air. She was found on clavicle x-ray to have an acute comminuted inferior displaced fracture of the distal left clavicle. Given this fracture and acute on chronic debility,hospitalist was contacted for admission. I saw the patient at bedside in the ED, daughter was present. Patient was fatigued appearing but otherwise laying back comfortably in bed and in no acute distress. She is hard of hearing at baseline. She did answer some questions for me but primarily with short responses. She reported only mild left shoulderpain at rest currently but stated the pain significantly worsened with any movement. She otherwise denies any acute concerns at this time. [facility] Medical History (Updated 11/27/24 @ 21:48 by Albin Plummer MD) (HFpEF) heart failure with preserved ejection fraction Osteoarthritis of hip (12/25/16) Chronic kidney disease (CKD) Weakness generalized COVID-19 (12/2020) EE (eosinophilic esophagitis) Paroxysmal atrial fibrillation Syncope (03/2019) Bilateral pleural effusion Chronic renal insufficiency Hiatal hernia Secondary pulmonary arterial hypertension Osteoarthritis Depression GERD (gastroesophageal reflux disease) Hypothyroidism Fibromyalgia Deep vein thrombosis (DVT) (04/2012) Atherosclerosis of coronary artery of [place] heart without angina pectoris Essential (primary) hypertension Hyperlipidemia Home Medications ?Medication ?Instructions ?Recorded ?Last Taken ?Type aspirin 81 mg tablet,delayed 81 mg PO DAILY blood thin ner 04/24/19 01/10/21 09:30 History release (Adult Aspirin Regimen) pantoprazole 40 mg tablet,delayed 40 mg PO DAILY gerd 01/10/21 10/30/22 History release loperamide 2 mg capsule (Imodium 2 mg PO Q6H PRN Diarr hea 04/18/22 Unknown History A-D) sertraline 50 mg tablet 50 mg PO DAILY mood 04/18/22 Unknown History tramadol 50 mg tablet 25 - 50 mg PO TID PRN PRN pa in 11/27/23 Unknown History gabapentin 100 mg capsule 100 mg PO DAILY pain 4 Unknown History metoprolol tartrate 25 mg tablet 25 mg PO BID heart #1 80 tabs 01/28/24 Unknown Rx levothyroxine 100 mcg tablet 100 mcg PO DAILY thyroid 02/17/24 Unknown History amlodipine 5 mg tablet 5 mg PO DAILY bp #90 TABLETS 04/04/24 Unknown Rx nitroglycerin 0.4 mg sublingual 0.4 mg sublingual Q5-1 5M #30 tabs 04/10/24 Unknown Rx tablet spironolactone 25 mg tablet 25 mg PO DAILY water pill #90 tabs 07/14/24 Unknown Rx denosumab 60 mg/mL subcutaneous 60 mg subcut [id number] 11/26/24 Unknown History syringe (Prolia) ibuprofen 400 mg tablet 400 mg PO TID PRN pain 11/26 Unknown History Allergy/AdvReac Type Severity Reaction Status Date / Time atorvastatin (From Lipitor) AdvReac myalgia Verified 11/27/24 17:55 oxycodone (From Percocet) AdvReac Unknown Verified 11/27/24 17:55 propoxyphene (From AdvReac Unknown Verified 11/27/24 17:55 Darvocet-N 100) Family History Father Heart disease CAD (coronary artery disease) Mother Heart disease Diabetes CVA (cerebral vascular accident) CAD (coronary artery disease) Surgical History (Updated 11/27/24 @ 22:40 by Judy Sanchez) History of loop recorder (05/05/19) History of thoracentesis History of appendectomy History of cataract surgery History of total knee arthroplasty History of bowel resection Hx of cholecystectomy History of left heart catheterization (03/23/17) History of hysterectomy History of spinal surgery History of hemiarthroplasty of left hip History of coronary artery stent placement (05/31/12) Social History household members: spouse housing: house Smoking Status: Never smoker alcohol intake: never substance use type: does not use ROS Constitutional Constitutional: Reports fatigue and weakness; Denies chills or fever(s) Eyes Eyes: Denies change in vision Cardiovascular Cardiovascular: Denies chest pain Respiratory/Chest Respiratory/Chest: Denies shortness of breath at rest Gastrointestinal Gastrointestinal: Denies abdominal pain Musculoskeletal Musculoskeletal: Reports arthralgias; Denies myalgias Neurologic Neurologic: Denies dizziness or headache(s) Vital Signs Vital Signs Vital Signs: 11/27/24 17:47 11/27/24 17:57 11/27/24 18:13 Temperature 97.6 F L Temperature Source Oral Pulse Rate 64 62 Respiratory Rate 13 11 L Respiratory Effort Normal Non-Labored Respiratory Pattern Normal Blood Pressure 180/81 H Blood Pressure Mean 114 Pulse Ox 98 97 Oxygen Delivery Method Room Air 11/27/24 18:15 11/27/24 18:30 11/27/24 18:45 Temperature Temperature Source Pulse Rate 65 64 61 Respiratory Rate 16 13 Respiratory Effort Respiratory Pattern Blood Pressure 178/77 H 176/74 H Blood Pressure Mean 106 101 Pulse Ox 99 97 96 Oxygen Delivery Method 11/27/24 19:00 11/27/24 19:15 11/27/24 19:30 Temperature Temperature Source Pulse Rate 61 66 61 Respiratory Rate 15 14 20 H Respiratory Effort Respiratory Pattern Blood Pressure 166/73 H 170/75 H 162/75 H Blood Pressure Mean 99 104 100 Pulse Ox 99 99 97 Oxygen Delivery Method 11/27/24 20:00 11/27/24 20:09 11/27/24 20:15 Temperature Temperature Source Pulse Rate Respiratory Rate 16 Respiratory Effort Respiratory Pattern Blood Pressure 171/76 H 174/75 H Blood Pressure Mean 99 103 Pulse Ox 97 Oxygen Delivery Method 11/27/24 20:30 11/27/24 20:45 11/27/24 21:00 Temperature Temperature Source Pulse Rate 61 88 Respiratory Rate 11 L 19 H Respiratory Effort Respiratory Pattern Blood Pressure 133/74 H 142/78 H 154/69 H Blood Pressure Mean 92 96 90 Pulse Ox 95 Oxygen Delivery Method Weight Weight: 51 kg Body Mass Index (BMI) 22.6 Physical Exam Const alert and no apparent distress Constitutional Narrative: Elderly female, thin and somewhat chronically ill-appearing, hard of hearing, answering questions with short appropriate responses, otherwise laying back comfortably in bed and in no acute distress. General Appearance: cooperative and comfortable HEENT normocephalic, head/scalp atraumatic, nasal mucous membranes and turbinates normal and moist oral mucous membranes Eyes PERRL, EOMs intact bilaterally and conjunctivae normal Neck Neck Narrative: Left shoulder/clavicular tenderness to palpation. Did not attempt range of motion. Chest inspection of chest normal Resp normal respiratory effort, normal air movement, no use of accessory muscles and clear to auscultation bilaterally Cardio regular rate, regular rhythm, no murmurs and peripheral pulses 2+ throughout GI normal to inspection, nondistended, normoactive bowel sounds, soft to palpation,non-tender and non-distended Back/Spine normal ROM Extremity normal to inspection and no pedal edema Skin no rashes or lesions noted Psych mental status grossly normal Psych Narrative: Flat affect. Results Lab / Micro Data 11/27/24 18:08 11/27/24 18:08 Labs: Laboratory Results - last 24 hr 11/27/24 18:08: WBC 5.2, RBC 3.97 L, Hgb 12.0, Hct 36.5 L, MCV 91.9, MCH 30.2, MCHC 32.9, RDW Std Deviation 43.1, RDW Coeff of Gabi 12.8, Plt Count 233, MPV 12.1 H, Immature Gran % (Auto) 1.200 H, Neut % (Auto) 59.3, Lymph % (Auto) 23.8,[place] % (Auto) 12.2 H, Eos % (Auto) 2.5, Baso % (Auto) 1.0, Absolute Neuts (auto)3.1, Absolute Lymphs (auto) 1.23, Nucleated RBC % 0, Sodium 140, Potassium 4.4, Chloride 104, Carbon Dioxide 24.0, Anion Gap 11, BUN 17, Creatinine 1.19, Estim Creat Clear Calc 23.47 L, Est GFR (MDRD) Non-Af 44 L, BUN/Creatinine Ratio 14.3,Glucose 91, Calcium 9.5 Imaging Radiology Impression Shoulder X-Ray 11/27/24 18:54 IMPRESSION: Acute comminuted inferiorly displaced fracture of the distal left clavicle. Reading Location: [facility] Thoracic Spine CT 11/27/24 18:54 IMPRESSION: No acute fracture or subluxation. Extensive compression fracture deformity of the thoracic spine as described above. Large hiatal hernia with circumferential wall thickening of the distal esophagus. Esophagram may be helpful for further characterization. Patchy bibasilar pulmonary infiltrates. Reading Location: [facility] Brain CT 11/27/24 19:16 IMPRESSION: NO ACUTE INTRACRANIAL HEMORRHAGE Reading Location: [facility] Knee X-Ray 11/27/24 19:16 IMPRESSION: No change in healing fracture of the patella. No new fracture. Moderate arthrosis. Reading Location: [facility] Lumbar Spine CT 11/27/24 19:25 IMPRESSION: No acute fracture or subluxation. Multiple chronic compression fractures with vertebroplasty at L1. Degenerative disc disease as described above. Reading Location: [facility] Cervical Spine CT 11/27/24 19:30 IMPRESSION: No acute fracture. Slight anterolisthesis of C4 on C5. Reading Location: [facility] Clavicle X-Ray 11/27/24 20:01 IMPRESSION: Acute comminuted inferiorly displaced fracture of the distal left clavicle. Reading Location: [id number] Assessment & Plan Assessment/Plan (1) Fall: (2) Closed fracture of left clavicle: (3) Immobility: PLAN: Plan Patient is an 89-year-old female who presented [facility] ED on 11/27/24 with left shoulder pain and debility after a fall at home. 1. Acute on chronic debility secondary to fall with left clavicular fracture, recent left patellar fracture ? Admit under observation status to [facility]. PT/OT/case management consulted. Following with Dr. Ziegler with ortho for recent left patellar fracture, left knee brace remains in place. Required recent SNF stay for this, only returned back home with daughter a few days prior to this admission. Mechanical fall onto left shoulder at home. Left clavicular x-ray showed acute comminuted inferiorly displaced fracture of the distal left clavicle. No surgical intervention needed, sling in place. Will need close outpatient follow-up with orthopedics after discharge. Pain control with scheduled Tylenol, tramadol as needed, ibuprofen as needed and low-dose IV morphine as needed. Continue home scheduled gabapentin. 2. Mild creatinine elevation ? Creatinine 1.19 on admit, baseline appears to be around 0.9-1.0. Suspect secondary to mild dehydration. Small IV fluid bolus given on admission, follow-up a.m. BMP and monitor urine output. 3. Paroxysmal A-fib, history of CAD with stenting, hypertension ? Follows with outpatient cardiology, had office visit on 11/26. Not on anticoagulation with recent history of falls. Continue home aspirin, amlodipine, Lopressor and spironolactone. Chronic medical conditions: ? Depression: Stable. Continue home sertraline. ? GERD: Continue home PPI. ? Osteoporosis: Continue denosumab injections in outpatient setting. ? Hypothyroidism: Continue home Synthroid. DVT prophylaxis: Lovenox CODE STATUS: DNR CCA, DNI Expected disposition: Likely SNF, 1 to 2 days Total clinical time spent by myself addressing the patient's medical issues, reviewing all the data, and collaborating with patient's care team: 75 minutes. Charges/Coding Visit Charges Inpatient E&M: 21002 Init Hosp L3 11/28/24 0353 <Electronically signed by Aguilar Gale DO> Cosigner Signature (if applicable): CC: Dr. Aguilar Gale DO; Dr. Rehan Lucero DO~ Signed [facility] Work Phone: [phone] History and physical note [facility] Medical Records Department [address] [place] [address] H&P Exam - Hospitalist 11/27/242134 MR#: [id number] Acct: [id number] Name: RADHA MAYERS Rep #:[id number] : 1935 89 From: Aguilar kaba DO PCP: Dr. Rehan Lucero DO Status:ADM SUZIE [place] [facility] [place] [facility]-7 HPI - General General Date of Admission: 11/27/24 Date of Service: 11/27/24 Chief Complaint: Fall with left shoulder pain HPI Narrative RADHA MAYERS, is a 89 F who presented to [facility] ED on 11/27/24 with left shoulder pain after a fall at home. Patient lives at home with her daughter. Has been following with Dr. Karlos Ziegler for recent left patellar fracture. Patient was seen in our ED in late September for this patellar fracture and was discharged home, but per patient and daughter she thenrequired SNF placement and only returned back home a few days ago. She continues to wear left knee brace for the patellar fracture. Earlier today daughter was gone for only 10 to 15 minutes but came back to find patient on thefloor. Patient was awake and alert at that time and it appears most consistent with a mechanical fall. She was unable to get up and had significant left shoulder pain, so EMS was called to bringpatient in for further evaluation. Inthe ED she was mildly hypertensive but otherwise stable on room air. She was found on clavicle x-ray to have an acute comminuted inferior displaced fracture of the distal left clavicle. Given this fracture and acute on chronic debility,hospitalist was contacted for admission. I saw the patient at bedside in the ED, daughter was present. Patient was fatigued appearing but otherwise laying back comfortably in bed and in no acute distress. She is hard of hearing at baseline.She did answer some questions for me but primarily with short responses. She reported only mild left shoulderpain at rest currently but stated the pain significantly worsened with any movement. She otherwise denies any acute concerns at this time. [facility] Medical History (Updated 11/27/24 @ 21:48 by Albin Plummer MD) (HFpEF) heart failure with preserved ejection fraction Osteoarthritis of hip (12/25/16) Chronic kidney disease (CKD) Weakness generalized COVID-19 (12/2020) EE (eosinophilic esophagitis) Paroxysmal atrial fibrillation Syncope (03/2019) Bilateral pleural effusion Chronic renal insufficiency Hiatal hernia Secondary pulmonary arterial hypertension Osteoarthritis Depression GERD (gastroesophageal reflux disease) Hypothyroidism Fibromyalgia Deep vein thrombosis (DVT) (04/2012) Atherosclerosis of coronary artery of [place] heart without angina pectoris Essential (primary) hypertension Hyperlipidemia Home Medications ?Medication ?Instructions ?Recorded ?Last Taken ?Type aspirin 81 mg tablet,delayed 81 mg PO DAILY blood thin ner 04/24/19 01/10/21 09:30 History release (Adult Aspirin Regimen) pantoprazole 40 mg tablet,delayed 40 mg PO DAILY gerd 01/10/21 10/30/22 History release loperamide 2 mg capsule (Imodium 2 mg PO Q6H PRN Diarr hea 04/18/22 Unknown History A-D) sertraline 50 mg tablet 50 mg PO DAILY mood 04/18/22 Unknown History tramadol 50 mg tablet 25 - 50 mg PO TID PRN PRN pa in 11/27/23 Unknown History gabapentin 100 mg capsule 100 mg PO DAILY pain 4 Unknown History metoprolol tartrate 25 mg tablet 25 mg PO BID heart #1 80 tabs 01/28/24 Unknown Rx levothyroxine 100 mcg tablet 100 mcg PO DAILY thyroid 02/17/24 Unknown History amlodipine 5 mg tablet 5 mg PO DAILY bp #90 TABLETS 04/04/24 Unknown Rx nitroglycerin 0.4 mg sublingual 0.4 mg sublingual Q5-1 5M #30 tabs 04/10/24 Unknown Rx tablet spironolactone 25 mg tablet 25 mg PO DAILY water pill #90 tabs 07/14/24 Unknown Rx denosumab 60 mg/mL subcutaneous 60 mg subcut [id number] oa 11/26/24 Unknown History syringe (Prolia) ibuprofen 400 mg tablet 400 mg PO TID PRN pain 11/26 Unknown History Allergy/AdvReac Type Severity Reaction Status Date / Time atorvastatin (From Lipitor) AdvReac myalgia Verified 11/27/24 17:55 oxycodone (From Percocet) AdvReac Unknown Verified 11/27/24 17:55 propoxyphene (From AdvReac Unknown Verified 11/27/24 17:55 Darvocet-N 100) Family History Father Heart disease CAD (coronary artery disease) Mother Heart disease Diabetes CVA (cerebral vascular accident) CAD (coronary artery disease) Surgical History (Updated 11/27/24 @ 22:40 by Judy Sanchez) History of loop recorder (05/05/19) History of thoracentesis History of appendectomy History of cataract surgery History of total knee arthroplasty History of bowel resection Hx of cholecystectomy History of left heart catheterization (03/23/17) History of hysterectomy History of spinal surgery History of hemiarthroplasty of left hip History of coronary artery stent placement (05/31/12) Social History household members: spouse housing: house Smoking Status: Never smoker alcohol intake: never substance use type: does not use ROS Constitutional Constitutional: Reports fatigue and weakness; Denies chills or fever(s) Eyes Eyes: Denies change in vision Cardiovascular Cardiovascular: Denies chest pain Respiratory/Chest Respiratory/Chest: Denies shortness of breath at rest Gastrointestinal Gastrointestinal: Denies abdominal pain Musculoskeletal Musculoskeletal: Reports arthralgias; Denies myalgias Neurologic Neurologic: Denies dizziness or headache(s) Vital Signs Vital Signs Vital Signs: 11/27/24 17:47 11/27/24 17:57 11/27/24 18:13 Temperature 97.6 F L Temperature Source Oral Pulse Rate 64 62 Respiratory Rate 13 11 L Respiratory Effort Normal Non-Labored Respiratory Pattern Normal Blood Pressure 180/81 H Blood Pressure Mean 114 Pulse Ox 98 97 Oxygen Delivery Method Room Air 11/27/24 18:15 11/27/24 18:30 11/27/24 18:45 Temperature Temperature Source Pulse Rate 65 64 61 Respiratory Rate 16 13 Respiratory Effort Respiratory Pattern Blood Pressure 178/77 H 176/74 H Blood Pressure Mean 106 101 Pulse Ox 99 97 96 Oxygen Delivery Method 11/27/24 19:00 11/27/24 19:15 11/27/24 19:30 Temperature Temperature Source Pulse Rate 61 66 61 Respiratory Rate 15 14 20 H Respiratory Effort Respiratory Pattern Blood Pressure 166/73 H 170/75 H 162/75 H Blood Pressure Mean 99 104 100 Pulse Ox 99 99 97 Oxygen Delivery Method 11/27/24 20:00 11/27/24 20:09 11/27/24 20:15 Temperature Temperature Source Pulse Rate Respiratory Rate 16 Respiratory Effort Respiratory Pattern Blood Pressure 171/76 H 174/75 H Blood Pressure Mean 99 103 Pulse Ox 97 Oxygen Delivery Method 11/27/24 20:30 11/27/24 20:45 11/27/24 21:00 Temperature Temperature Source Pulse Rate 61 88 Respiratory Rate 11 L 19 H Respiratory Effort Respiratory Pattern Blood Pressure 133/74 H 142/78 H 154/69 H Blood Pressure Mean 92 96 90 Pulse Ox 95 Oxygen Delivery Method Weight Weight: 51 kg Body Mass Index (BMI) 22.6 Physical Exam Const alert and no apparent distress Constitutional Narrative: Elderly female, thin and somewhat chronically ill-appearing, hard of hearing, answering questions with short appropriate responses, otherwise laying back comfortably in bed and in no acute distress. General Appearance: cooperative and comfortable HEENT normocephalic, head/scalp atraumatic, nasal mucous membranes and turbinates normal and moist oral mucous membranes Eyes PERRL, EOMs intact bilaterally and conjunctivae normal Neck Neck Narrative: Left shoulder/clavicular tenderness to palpation. Did not attempt range of motion. Chest inspection of chest normal Resp normal respiratory effort, normal air movement, no use of accessory muscles and clear to auscultation bilaterally Cardio regular rate, regular rhythm, no murmurs and peripheral pulses 2+ throughout GI normal to inspection, nondistended, normoactive bowel sounds, soft to palpation,non-tender and non-distended Back/Spine normal ROM Extremity normal to inspection and no pedal edema Skin no rashes or lesions noted Psych mental status grossly normal Psych Narrative: Flat affect. Results Lab / Micro Data 11/27/24 18:08 11/27/24 18:08 Labs: Laboratory Results - last 24 hr 11/27/24 18:08: WBC 5.2, RBC 3.97 L, Hgb 12.0, Hct 36.5 L, MCV 91.9, MCH 30.2, MCHC 32.9, RDW Std Deviation 43.1, RDW Coeff of Gabi 12.8, Plt Count 233, MPV 12.1 H, Immature Gran % (Auto) 1.200 H, Neut % (Auto) 59.3, Lymph % (Auto) 23.8,[place] % (Auto) 12.2 H, Eos % (Auto) 2.5, Baso % (Auto) 1.0, Absolute Neuts (auto)3.1, Absolute Lymphs (auto) 1.23, Nucleated RBC % 0, Sodium 140, Potassium 4.4, Chloride 104, Carbon Dioxide 24.0, Anion Gap 11, BUN 17, Creatinine 1.19, Estim Creat Clear Calc 23.47 L, Est GFR (MDRD) Non-Af 44 L, BUN/Creatinine Ratio 14.3,Glucose 91, Calcium 9.5 Imaging Radiology Impression Shoulder X-Ray 11/27/24 18:54 IMPRESSION: Acute comminuted inferiorly displaced fracture of the distal left clavicle. Reading Location: [facility] Thoracic Spine CT 11/27/24 18:54 IMPRESSION: No acute fracture or subluxation. Extensive compression fracture deformity of the thoracic spine as described above. Large hiatal hernia with circumferential wall thickening of the distal esophagus. Esophagram may behelpful for further characterization. Patchy bibasilar pulmonary infiltrates. Reading Location: [facility] Brain CT 11/27/24 19:16 IMPRESSION: NO ACUTE INTRACRANIAL HEMORRHAGE Reading Location: [facility] Knee X-Ray 11/27/24 19:16 IMPRESSION: No change in healing fracture of the patella. No new fracture. Moderate arthrosis. Reading Location: [facility] Lumbar Spine CT 11/27/24 19:25 IMPRESSION: No acute fracture or subluxation. Multiple chronic compression fractures with vertebroplasty at L1. Degenerative disc disease as described above. Reading Location: [facility] Cervical Spine CT 11/27/24 19:30 IMPRESSION: No acute fracture. Slight anterolisthesis of C4 on C5. Reading Location: [facility] Clavicle X-Ray 11/27/24 20:01 IMPRESSION: Acute comminuted inferiorly displaced fracture of the distal left clavicle. Reading Location: [id number] Assessment & Plan Assessment/Plan (1) Fall: (2) Closed fracture of left clavicle: (3) Immobility: PLAN: Plan Patient is an 89-year-old female who presented [facility] ED on 11/27/24 with left shoulder pain and debility after a fall at home. 1. Acute on chronic debility secondary to fall with left clavicular fracture, recent left patellar fracture ? Admit under observation status to [facility]. PT/OT/case management consulted. Following with Dr. Ziegler with ortho for recent left patellar fracture, left knee brace remains in place. Required recentS stay for this, only returned back home with daughter a few days prior to this admission. Mechanical fall onto left shoulder at home. Left clavicular x-ray showed acute comminuted inferiorly displaced fracture of the distal left clavicle. No surgical intervention needed, sling in place. Will need close outpatient follow-up with orthopedics after discharge. Pain control with scheduled Tylenol, tramadol as needed, ibuprofen as needed and low-dose IV morphine as needed. Continue home scheduled gabapentin. 2. Mild creatinine elevation ? Creatinine 1.19 on admit, baseline appears to be around 0.9-1.0. Suspect secondary to mild dehydration. Small IV fluid bolus given on admission, follow- up a.m. BMP and monitor urine output. 3. Paroxysmal A-fib, history of CAD with stenting, hypertension ? Follows with outpatient cardiology, had office visit on 11/26. Not on anticoagulation with recent history of falls. Continue home aspirin, amlodipine, Lopressor and spironolactone. Chronic medical conditions: ? Depression: Stable. Continue home sertraline. ? GERD: Continue home PPI. ? Osteoporosis: Continue denosumab injections in outpatient setting. ? Hypothyroidism: Continue home Synthroid. DVT prophylaxis: Lovenox CODE STATUS: DNR CCA, DNI Expected disposition: Likely SNF, 1 to 2 days Total clinical time spent by myself addressing the patient's medical issues, reviewing all the data, and collaborating with patient's care team: 75 minutes. Charges/Coding Visit Charges Inpatient E&M: 84033 Init Hosp L3 11/28/24 0352 Cosigner Signature (if applicable): CC: Dr. Aguilar Gale, DO; Dr. Rehan Lucero DO~ Signed [facility]04-17-2025 Discharge summary [facility] Medical Records Department [address] [place] [address] Emergency Department Summary 11/27/24 MR#: [id number] Acct: [id number] Name: RADHA MAYERS Rep #:[id number] : 1935 89 From: Albin Plummer MD PCP: Dr. Rehan Lucero DO Status:ADM SUZIE Location: [place] [address] HPI History of Present Illness Chief Complaint: Syncope Narrative Narrative: 89-year-old female presents with her daughter because of possible syncopal episode/fall. She is currently being treated by Dr. Karlos Ziegler for left patellar fracture. She is in a knee immobilizer for this but her daughter states that they have been exercising her out of the brace recently. Her daughter relays history that she left for a hair appointment, that when she arrived home found her mother on the floor on her back. Patient stated to her that she must have passed out but it was only 10minutes before she got home. She was unable to get up by herself. Patient denies any prodromal symptoms, butstates she is having pain in her back where she is severely kyphotic, and pain in her left s houlder. She is left-hand dominant. 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) Chronic kidney disease (CKD) Weakness generalized COVID-19 (12/2020) EE (eosinophilic esophagitis) Paroxysmal atrial fibrillation Syncope (03/2019) Bilateral pleural effusion Chronic renal insufficiency Hiatal hernia Secondary pulmonary arterial hypertension Osteoarthritis Depression GERD (gastroesophageal reflux disease) Hypothyroidism Fibromyalgia Deep vein thrombosis (DVT) (04/2012) Atherosclerosis of coronary artery of [place] heart without angina pectoris Essential (primary) hypertension Hyperlipidemia Home Medications ?Medication ?Instructions ?Recorded ?Last Taken ?Type aspirin 81 mg tablet,delayed 81 mg PO DAILY 04/24/19 0 01/10/21 09:30 History release (Adult Aspirin Regimen) pantoprazole 40 mg tablet,delayed 40 mg PO DAILY 01/1010/30/22 History release loperamide 2 mg capsule (Imodium 2 mg PO Q6H PRN Diarr hea 04/18/22 Unknown History A-D) sertraline 50 mg tablet 50 mg PO DAILY 04/18/22 Unkn own History tramadol 50 mg tablet 25 - 50 mg PO TID PRN PRN pa in 11/27/23 Unknown History gabapentin 100 mg capsule 100 mg PO DAILY 12/07/23 Unk nown History metoprolol tartrate 25 mg tablet 25 mg PO BID #180 tab s 01/28/24 Unknown Rx levothyroxine 100 mcg tablet 100 mcg PO DAILY 02/17/24 Unknown History amlodipine 5 mg tablet 5 mg PO DAILY #90 TABLETS Unknown Rx nitroglycerin 0.4 mg sublingual 0.4 mg sublingual Q5-1 5M #30 tabs 04/10/24 Unknown Rx tablet spironolactone 25 mg tablet 25 mg PO DAILY #90 tabs Unknown Rx denosumab 60 mg/mL subcutaneous 60 mg subcut [id number] 11/26/24 Unknown History syringe (Prolia) ibuprofen 400 mg tablet 400 mg PO TID PRN pain 11/26 Unknown History Allergy/AdvReac Type Severity Reaction Status Date / Time atorvastatin (From Lipitor) AdvReac myalgia Verified 11/27/24 17:55 oxycodone (From Percocet) AdvReac Unknown Verified 11/27/24 17:55 propoxyphene (From AdvReac Unknown Verified 11/27/24 17:55 Darvocet-N 100) Family History Father Heart disease CAD (coronary artery disease) Mother Heart disease Diabetes CVA (cerebral vascular accident) CAD (coronary artery disease) Surgical History History of loop recorder (05/05/19) History of thoracentesis History of appendectomy History of cataract surgery History of total knee arthroplasty History of bowel resection Hx of cholecystectomy History of left heart catheterization (03/23/17) History of hysterectomy History of spinal surgery History of hemiarthroplasty of left hip History of coronary artery stent placement (05/31/12) Social History household members: spouse housing: house Smoking Status: Never smoker alcohol intake: never substance use type: does not use ROS ROS ED ROS Narrative Review of systems positive for questionable syncopal episode. Positive left shoulder pain. Positiveback pain in the upper portion of back. No headache, but did hit head and fall. Denies blood thinners. Positive left knee pain secondary to previous patellar fracture, but denies new injury as she states shewas wearing her knee immobilizer when she fell/passed out. EXAM Physical Exam Narrative Exam Narrative: GCS 15. ABCs intact. HEENT examination shows no crepitance of skull, PERRL, EOMI. Neck soft and supple without meningismus. Left shoulder shows ecchymosisanteriorly with diffuse tenderness to palpation but no crepitance. Palpable radial pulse, left. Cardiovascular examination regular rate and rhythm. Lungs clear to auscultation bilaterally anteriorly. Abdomen soft and nontender without guarding or rebound. Positive bowel sounds. Left knee is in immobilizer. Upon partial removal, no evidence of ecchymosis, no tenderness. Able to lift leg off bed. Neurovascularly intact distally. No crepitance. Const Vital Signs: 11/27/24 17:47 11/27/24 17:57 11/27/24 18:13 Temperature 97.6 F L Temperature Source Oral Pulse Rate 64 62 Respiratory Rate 13 11 L Respiratory Effort Normal Non-Labored Respiratory Pattern Normal Blood Pressure 180/81 H Blood Pressure Mean 114 Pulse Ox 98 97 Oxygen Delivery Method Room Air 11/27/24 18:15 11/27/24 18:30 11/27/24 18:45 Temperature Temperature Source Pulse Rate 65 64 61 Respiratory Rate 16 13 Respiratory Effort Respiratory Pattern Blood Pressure 178/77 H 176/74 H Blood Pressure Mean 106 101 Pulse Ox 99 97 96 Oxygen Delivery Method 11/27/24 19:00 11/27/24 19:15 11/27/24 19:30 Temperature Temperature Source Pulse Rate 61 66 61 Respiratory Rate 15 14 20 H Respiratory Effort Respiratory Pattern Blood Pressure 166/73 H 170/75 H 162/75 H Blood Pressure Mean 99 104 100 Pulse Ox 99 99 97 Oxygen Delivery Method 11/27/24 20:00 11/27/24 20:09 11/27/24 20:15 Temperature Temperature Source Pulse Rate Respiratory Rate 16 Respiratory Effort Respiratory Pattern Blood Pressure 171/76 H 174/75 H Blood Pressure Mean 99 103 Pulse Ox 97 Oxygen Delivery Method 11/27/24 20:30 11/27/24 20:45 11/27/24 21:00 Temperature Temperature Source Pulse Rate 61 88 Respiratory Rate 11 L 19 H Respiratory Effort Respiratory Pattern Blood Pressure 133/74 H 142/78 H 154/69 H Blood Pressure Mean 92 96 90 Pulse Ox 95 Oxygen Delivery Method MDM MDM MDM Narrative Medical decision making narrative: Concern is for injuries during her fall versus syncopal episode. The differential diagnosis does include syncopal episode, intracranial hemorrhage, shoulder fracture versus dislocation versus fracture dislocation versus contusion. I do not have concern for new fracture of her left lower extremity, a nd I offered to x-ray her left knee, but the patient declined as she reaffirms that she was wearingher knee brace. However, her daughter is concerned that she may have a new injury. I reviewed her laboratory work and she has normal white count 5.2 with hemoglobin normal at 12.0, hematocrit 36.5, platelet count 233. BMP is remarkable for sodium of 140 and normal with normal potassium, BUN 17 and creatinine 1.19. Glucose 91. EKG obtained and interpreted by myself independently as normal sinus rhythm at 60 bpm without ectopy or acute ST changes. I reviewed the radiology report of the CT of the brain and there is no acute intracranial hemorrhage. I also reviewed the radiology reports for the C, T, and L-spine and there are no acute fractures noted, but she does have the old compression fractures that appear stable. X-ray of the left knee interpreted bymyself independently shows no evidence of an acute fracture, there is the healing patellar fracture. I reviewed the radiology report which confirms my independent interpretation. X-ray of the left shoulder shows no dislocation butthere is a clavicular fracture noted. I reviewed the radiology report which confirms my independent interpretation. I did do individual clavicle x-rays, and on my interpretation of the dedicated clavicle films, there is a comminuted with inferior displacement left close clavicular fracture. I reviewed the radiology report which also confirms my independentinterpretation. At this point in time, her urinalysis is still pending. She will be placed in asling given her clavicle fracture, but given her knee immobilizer as well, in discussion with her daughter, she is unable to care for her as she has 2 limbs that are immobilized. She was recently discharged from rehab. Given her clinical situation, I will discuss the patient with Dr. Gale for at least observation versus admission for probable placement back into rehabilitation. In discussion with Dr. Gale, she will be assigned observation on the general medical floor. Patient is in stable condition. History & Record Review Discussion w/independent historian: Patient and Family Additional record(s) reviewed:: Prior ED visit and Prior labs Lab Data Attestation: I reviewed the patient's lab results. Labs: Laboratory Results - last 24 hr 11/27/24 18:08 WBC 5.2 RBC 3.97 L Hgb 12.0 Hct 36.5 L MCV 91.9 MCH 30.2 MCHC 32.9 RDW Std Deviation 43.1 RDW Coeff of Gabi 12.8 Plt Count 233 MPV 12.1 H Immature Gran % (Auto) 1.200 H Neut % (Auto) 59.3 Lymph % (Auto) 23.8 [place] % (Auto) 12.2 H Eos % (Auto) 2.5 Baso % (Auto) 1.0 Absolute Neuts (auto) 3.1 Absolute Lymphs (auto) 1.23 Nucleated RBC % 0 Sodium 140 Potassium 4.4 Chloride 104 Carbon Dioxide 24.0 Anion Gap 11 BUN 17 Creatinine 1.19 Estim Creat Clear Calc 23.47 L Est GFR (MDRD) Non-Af 44 L BUN/Creatinine Ratio 14.3 Glucose 91 Calcium 9.5 Radiography Diagnostic Testing: Clinical Impression(s) from Imaging Studies Shoulder X-Ray 11/27/24 18:54 IMPRESSION: Acute comminuted inferiorly displaced fracture of the distal left clavicle. Reading Location: [id number] Thoracic Spine CT 11/27/24 18:54 IMPRESSION: No acute fracture or subluxation. Extensive compression fracture deformity of the thoracic spine as described above. Large hiatal hernia with circumferential wall thickening of the distal esophagus. Esophagram may behelpful for further characterization. Patchy bibasilar pulmonary infiltrates. Reading Location: [facility] Brain CT 11/27/24 19:16 IMPRESSION: NO ACUTE INTRACRANIAL HEMORRHAGE Reading Location: [facility] Knee X-Ray 11/27/24 19:16 IMPRESSION: No change in healing fracture of the patella. No new fracture. Moderate arthrosis. Reading Location: [facility] Lumbar Spine CT 11/27/24 19:25 IMPRESSION: No acute fracture or subluxation. Multiple chronic compression fractures with vertebroplasty at L1. Degenerative disc disease as described above. Reading Location: [facility] Cervical Spine CT 11/27/24 19:30 IMPRESSION: No acute fracture. Slight anterolisthesis of C4 on C5. Reading Location: [facility] Clavicle X-Ray 11/27/24 20:01 IMPRESSION: Acute comminuted inferiorly displaced fracture of the distal left clavicle. Reading Location: [facility] Discharge Plan Dx/Rx/DC Orders Clinical Impression: Fall, Closed fracture of left clavicle, Immobility Disposition Disposition: Acute Care Hospital [facility] What to do if you have Problems For any increased pain, shortness of breath, bleeding, nausea or vomiting, chestpain, or any unexpected problems, contact your Primary Care Provider. Call [facility] ([phone]) or report tothe closest Emergency Room. Call 911 if necessary. 11/27/24 2200 Cosigner Signature (if applicable): CC: Dr. Rehan Lucero, DO ~ Signed [facility]04-17-2025 Radiology Diagnostic study note [facility] Imaging Services [address], [place] [id number] Spine Thoracic without Contras MR#: [id number] Acct: [id number] Name: RADHA MAYERS Rep #: [id number] : 1935 F 89 From: Jozef Pimentel DO PCP: Dr. Rehan Lucero DO Status: REG ER Study:Spine Thoracic without Contras Date of Exam: 11/27/24 Exam# [id number] Ordering Dr: Albin Plummer MD PROCEDURE: SPINE THORACIC WITHOUT CONTRAS REASON FOR EXAM: FALL, PAIN TECHNIQUE: Thoracic spine CT without contrast. Coronal and Sagittal reconstruction series were provided. One or more dose reduction techniques were used (e.g., Automated exposure control, adjustment of the mA and/or kV according to patient size, use of iterative reconstruction technique). RADIATION DOSE SUMMARY: CTDlvol: 18 mGy DLP: 623 mGycm COMPARISON: CT thoracic spine dated 10/06/2024 FINDINGS: Alignment: Hyperkyphosis of the thoracic spine. Bones: Multilevel compression fracture deformity of the thoracic vertebral body,with vertebroplastyinvolving T5, T7, T9 and T10 vertebral bodies. Overall this is stable in comparison to the prior study. No new fractures are demonstrated. Soft Tissues: Large hiatal hernia with circumferential wall thickening of the distal esophagus. Other: Patchy bibasilar pulmonary airspace opacities, concerning for infiltrates, as well as scattered bilateral areas of atelectasis/scarring. Biapical focal area of pleural thickening/scarring. Extensive atheroscleroticcalcification of the thoracic aorta. CT/Spine Thoracic without Contras IMPRESSION: No acute fracture or subluxation. Extensive compression fracture deformity of the thoracic spine as described above. Large hiatal hernia with circumferential wall thickening of the distal esophagus. Esophagram may behelpful for further characterization. Patchy bibasilar pulmonary infiltrates. [facility] CC: Dr. Albin Plummer MD; Dr. Rehan Lucero DO ~ [place] Wheeler: Signed [facility]04-17-2025 Radiology Diagnostic study note [facility] Imaging Services [address] [place] [address] Spine Lumbar without Contrast MR#: [id number] Acct: [id number] Name: RADHA MAYERS Rep #: [id number] : 1935 F 89 From: Mk Mea MD PCP: Dr. Rehan Lucero, Status: REG ER Study:Spine Lumbar without Contrast Date of E xam: 11/27/24 Exam# [id number] Ordering Dr: Albin Plummer MD PROCEDURE: SPINE LUMBAR WITHOUT CONTRAST 11/27/2024 REASON FOR EXAM: FALL, PAIN TECHNIQUE: Lumbar spine CT without contrast. Coronal and Sagittal reconstruction series were provided. One or more dose reduction techniques were used (e.g., Automated exposure control, adjustment of the mA and/or kV according to patient size, use of iterative reconstruction technique COMPARISON: 10/06/2024 FINDINGS: Vertebrae: Chronic moderate wedge compression fracture of L1 treated with vertebroplasty. Chronic moderate wedge compression fracture of L2 with concavity of the inferior endplate. Chronic mild compression fracture of L3 with concavity of the inferior endplate. Chronic mild compression fracture of L5. All of these fractures are unchanged when compared with the prior study. There is some retropulsion of the superior endplate of L1 in the inferior endplate of L2 which are also unchanged. No acute fracture line. Alignment: Anatomic alignment. L1-2: No spinal stenosis or neural foraminal stenosis. L2-3: No change in mild retropulsion of the inferior endplate of L2 which produces mild central spinal stenosis. No neural foraminal stenosis. L3-4: Mild bilateral facet hypertrophy and ligamentum flavum hypertrophy. Mild broad disc protrusion produces mild spinal stenosis and mild bilateral neural foraminal stenosis. L4-5: Mild bilateral facet hypertrophy and ligamentum flavum hypertrophy. Moderate broad disc protrusion produces moderate spinal stenosis and moderate bilateral neural foraminal stenosis. L5-S1: No spinal stenosis or neural foraminal stenosis. Sacrum: No acute fracture. CT/Spine Lumbar without Contrast IMPRESSION: No acute fracture or subluxation. Multiple chronic compression fractures with vertebroplasty at L1. Degenerative disc disease as described above. Reading Location: [id number] CC: Dr. Albin Plummer MD; Dr. Rehan Lucero DO ~ [place]ke Wheeler: Signed [facility]04-17-2025 Radiology Diagnostic study note [facility] Imaging Services [address], [place] [address] Knee 1 or 2 Views MR#: [id number] Acct: [id number] Name: RADHA MAYERS Rep #: [id number] : 1935 F 89 From: Mk Mae MD PCP: Dr. Rehan Lucero DO Status: REG ER Study:Knee 1 or 2 Views Date of Exam: Exam# [id number] Ordering Dr: Albin Plummer MD PROCEDURE: KNEE 1 OR 2 VIEWS 11/27/2024 REASON FOR EXAM: TRAUMA TECHNIQUE: 3 views of the left knee COMPARISON: 10/06/2024 FINDINGS: Bones: Healing non distracted transverse fracture of the patella. Joints: Moderate degenerative changes. Effusion: No effusion. Soft tissues: Calcified plaque in the left popliteal artery. Other: RAD/Knee 1 or 2 Views IMPRESSION: No change in healing fracture of the patella. No new fracture. Moderate arthrosis. Reading Location: [facility] CC: Dr. Albin Plummer MD; Dr. Rehan Lucero DO ~ [place] Wheeler: Signed [facility]04-17-2025 Radiology Diagnostic study note [facility] Imaging Services [address], [place] [address] Shoulder min 2 Views MR#: [id number] Acct: [id number] Name: RADHA MAYERS Rep #: [id number] : 1935 F 89 From: Mk Mae MD PCP: Dr. Rehan Lucero DO Status: REG ER Study:Shoulder min 2 Views Date of Exam: 11/27/24 Exam# [id number] Ordering Dr: Albin Plummer MD PROCEDURE: SHOULDER MIN 2 VIEWS 11/27/2024 REASON FOR EXAM: TRAUMA TECHNIQUE: 3 view(s) of the left shoulder FINDINGS: Bones: Acute comminuted inferiorly displaced fracture of the distal left clavicle. Joints: Normal alignment of the acromioclavicular and glenohumeral joints. Soft tissues: Soft tissues are unremarkable. Other: RAD/Shoulder min 2 Views IMPRESSION: Acute comminuted inferiorly displaced fracture of the distal left clavicle. Reading Location: [facility] CC: Dr. Albin Plummer MD; Dr. Rehan Lucero DO ~ [place] Wheeler: Signed [facility]04-17-2025 Radiology Diagnostic study note [facility] Imaging Services [address] [place] [address] [phone]) Clavicle MR#: [id number] Acct: [id number] Name: RADHA MAYERS Sakshi Rep #: [id number] : 1935 F 89 From: Mk Mae MD PCP: Dr. Rehan Lucero DO Status: REG ER Study:Clavicle Date of Exam: 11/27/24 Exam# [id number] Ordering Dr: Albin Plummer MD PROCEDURE: CLAVICLE 11/27/2024 REASON FOR EXAM: TRAUMA, PAIN TECHNIQUE: 2 view(s) of each clavicle FINDINGS: Left CLAVICLE: Bones right: Acute comminuted inferiorly displaced fracture of the distal left clavicle. Joints right: No severe arthrosis. Soft tissues right: Unremarkable. : RAD/Clavicle IMPRESSION: Acute comminuted inferiorly displaced fracture of the distal left clavicle. Reading Location: [facility] CC: Dr. Albin Plummer MD; Dr. Rehan Lucero DO ~ Coke Wheeler: Signed [facility]04-17-2025 Radiology Diagnostic study note [facility] Imaging Services [address] [place] [address] Spine Cervical without Contras MR#: [id number] Acct: [id number] Name: RADHA MAYERS Sakshi Rep #: [id number] : 1935 F 89 From: Jozef Pimentel DO PCP: Dr. Rehan Lucero DO Status: REG ER Study:Spine Cervical without Contras Date of Exam: 11/27/24 Exam# [id number] Ordering Dr: Albin Plummer MD PROCEDURE: SPINE CERVICAL WITHOUT CONTRAS 11/27/2024 REASON FOR EXAM: TRAUMA TECHNIQUE: Cervical spine CT without contrast. Coronal and Sagittal reconstruction series were provided. One or more dose reduction techniques were used (e.g., Automated exposure control, adjustment of the mA and/or kV according to patient size, use of iterative reconstruction technique RADIATION DOSE SUMMARY: CTDlvol: 16 mGy DLP: 285 mGycm COMPARISON: CT of the cervical spine dated 10/06/2024 FINDINGS: Alignment: Hyperlordosis with slight anterolisthesis of C4 on C5. Discs: Multilevel narrowing of the intervertebral disc spaces. Vertebrae: No acute fracture. Cervical vertebral body heights are preserved. Multilevel uncovertebral arthropathy. Soft Tissues: No acute abnormality. Other: Carotid artery calcifications. CT/Spine Cervical without Contras IMPRESSION: No acute fracture. Slight anterolisthesis of C4 on C5. Reading Location: [facility] CC: Dr. Albin Plummer MD; Dr. Rehan Lucero DO ~ [place] Wheeler: Signed [facility]04-17-2025 Radiology Diagnostic study note [facility] Imaging Services [address] [place], [place] [id number] Brain/Head without Contrast MR#: [id number] Acct: [id number] Name: RADHA MAYERS Rep #: [id number] : 1935 F 89 From: Jozef Pimentel DO PCP: Dr. Rehan Lucero DO Status: REG ER Study:Brain/Head without Contrast Date of Exa m: 11/27/24 Exam# [id number] Ordering Dr: Albin Plummer MD PROCEDURE: BRAIN/HEAD WITHOUT CONTRAST 11/27/2024 REASON FOR EXAM: TRAUMA TECHNIQUE: Head CT without intravenous contrast. Coronal and Sagittal reconstruction serieswere provided. One or more dose reduction techniques were used (e.g., Automated exposure control, adjustment of the mA and/or kV according to patient size, use of iterative reconstruction technique. RADIATION DOSE SUMMARY: CTDlvol: 45 mGy DLP: 829 mGycm COMPARISON: CT of the brain dated 10/06/2024 FINDINGS: Brain: Extensive low density in the deep cerebral white matter most likely represents advanced chronic small vessel ischemic disease. CSF Spaces: Moderate generalized cerebral atrophy Sinuses/Mastoids: Clear at visualized levels Bones: Unremarkable CT/Brain/Head without Contrast IMPRESSION: NO ACUTE INTRACRANIAL HEMORRHAGE Reading Location: [facility] CC: Dr. Albin Plummer MD; Dr. Rehan Lucero DO ~ [place]ke Wheeler: Signed [facility]04-17-2025 Discharge summary Author Albin Plummer [facility] Note Date/Time November 27, 2024 10: 00pm [facility] Medical Records Department [address] [place] [address] Emergency Department Summary 11/27/24 MR#: [id number] Acct: [id number] Name: RADHA MAYERS Rep #:[id number] : 1935 89 From: Albin Plummer MD PCP: Dr. Rehan Lucero DO Status:ADM SUZIE Location: [address] History of Present Illness Chief Complaint: Syncope Narrative Narrative: 89-year-old female presents with her daughter because of possible syncopal episode/fall. She is currently being treated by Dr. Karlos Ziegler for left patellar fracture. She is in a knee immobilizer for this but her daughter states that they have been exercising her out of the brace recently. Her daughter relays history that she left for a hair appointment, that when she arrived home found her mother on the floor on her back. Patient stated to her that she must have passed out but it was only 10 minutes before she got home. She was unable to get up by herself. Patient denies any prodromal symptoms, butstates she is having pain in her back where she is severely kyphotic, and pain in her left shoulder. She is left-hand dominant. 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) Chronic kidney disease (CKD) Weakness generalized COVID-19 (12/2020) EE (eosinophilic esophagitis) Paroxysmal atrial fibrillation Syncope (03/2019) Bilateral pleural effusion Chronic renal insufficiency Hiatal hernia Secondary pulmonary arterial hypertension Osteoarthritis Depression GERD (gastroesophageal reflux disease) Hypothyroidism Fibromyalgia Deep vein thrombosis (DVT) (04/2012) Atherosclerosis of coronary artery of [place] heart without angina pectoris Essential (primary) hypertension Hyperlipidemia Home Medications ?Medication ?Instructions ?Recorded ?Last Taken ?Type aspirin 81 mg tablet,delayed 81 mg PO DAILY 04/24/19 0 01/10/21 09:30 History release (Adult Aspirin Regimen) pantoprazole 40 mg tablet,delayed 40 mg PO DAILY 01/1010/30/22 History release loperamide 2 mg capsule (Imodium 2 mg PO Q6H PRN Diarr hea 04/18/22 Unknown History A-D) sertraline 50 mg tablet 50 mg PO DAILY 04/18/22 Unkn own History tramadol 50 mg tablet 25 - 50 mg PO TID PRN PRN pa in 11/27/23 Unknown History gabapentin 100 mg capsule 100 mg PO DAILY 12/07/23 Unk nown History metoprolol tartrate 25 mg tablet 25 mg PO BID #180 tab s 01/28/24 Unknown Rx levothyroxine 100 mcg tablet 100 mcg PO DAILY 02/17/24 Unknown History amlodipine 5 mg tablet 5 mg PO DAILY #90 TABLETS Unknown Rx nitroglycerin 0.4 mg sublingual 0.4 mg sublingual Q5-1 5M #30 tabs 04/10/24 Unknown Rx tablet spironolactone 25 mg tablet 25 mg PO DAILY #90 tabs Unknown Rx denosumab 60 mg/mL subcutaneous 60 mg subcut [id number] 11/26/24 Unknown History syringe (Prolia) ibuprofen 400 mg tablet 400 mg PO TID PRN pain 11/26 Unknown History Allergy/AdvReac Type Severity Reaction Status Date / Time atorvastatin (From Lipitor) AdvReac myalgia Verified 11/27/24 17:55 oxycodone (From Percocet) AdvReac Unknown Verified 11/27/24 17:55 propoxyphene (From AdvReac Unknown Verified 11/27/24 17:55 Darvocet-N 100) Family History Father Heart disease CAD (coronary artery disease) Mother Heart disease Diabetes CVA (cerebral vascular accident) CAD (coronary artery disease) Surgical History History of loop recorder (05/05/19) History of thoracentesis History of appendectomy History of cataract surgery History of total knee arthroplasty History of bowel resection Hx of cholecystectomy History of left heart catheterization (03/23/17) History of hysterectomy History of spinal surgery History of hemiarthroplasty of left hip History of coronary artery stent placement (05/31/12) Social History household members: spouse housing: house Smoking Status: Never smoker alcohol intake: never substance use type: does not use ROS ROS ED ROS Narrative Review of systems positive for questionable syncopal episode. Positive left shoulder pain. Positive back pain in the upper portion of back. No headache, but did hit head and fall. Denies blood thinners. Positive left knee pain secondary to previous patellar fracture, but denies new injury as she states shewas wearing her knee immobilizer when she fell/passed out. EXAM Physical Exam Narrative Exam Narrative: GCS 15. ABCs intact. HEENT examination shows no crepitance of skull, PERRL, EOMI. Neck soft and supple without meningismus. Left shoulder shows ecchymosisanteriorly with diffuse tenderness to palpation but no crepitance. Palpable radial pulse, left. Cardiovascular examination regular rate and rhythm. Lungs clear to auscultation bilaterally anteriorly. Abdomen soft and nontender without guarding or rebound. Positive bowel sounds. Left knee is in immobilizer. Upon partial removal, no evidence of ecchymosis, no tenderness. Able to lift leg off bed. Neurovascularly intact distally. No crepitance. Const Vital Signs: 11/27/24 17:47 11/27/24 17:57 11/27/24 18:13 Temperature 97.6 F L Temperature Source Oral Pulse Rate 64 62 Respiratory Rate 13 11 L Respiratory Effort Normal Non-Labored Respiratory Pattern Normal Blood Pressure 180/81 H Blood Pressure Mean 114 Pulse Ox 98 97 Oxygen Delivery Method Room Air 11/27/24 18:15 11/27/24 18:30 11/27/24 18:45 Temperature Temperature Source Pulse Rate 65 64 61 Respiratory Rate 16 13 Respiratory Effort Respiratory Pattern Blood Pressure 178/77 H 176/74 H Blood Pressure Mean 106 101 Pulse Ox 99 97 96 Oxygen Delivery Method 11/27/24 19:00 11/27/24 19:15 11/27/24 19:30 Temperature Temperature Source Pulse Rate 61 66 61 Respiratory Rate 15 14 20 H Respiratory Effort Respiratory Pattern Blood Pressure 166/73 H 170/75 H 162/75 H Blood Pressure Mean 99 104 100 Pulse Ox 99 99 97 Oxygen Delivery Method 11/27/24 20:00 11/27/24 20:09 11/27/24 20:15 Temperature Temperature Source Pulse Rate Respiratory Rate 16 Respiratory Effort Respiratory Pattern Blood Pressure 171/76 H 174/75 H Blood Pressure Mean 99 103 Pulse Ox 97 Oxygen Delivery Method 11/27/24 20:30 11/27/24 20:45 11/27/24 21:00 Temperature Temperature Source Pulse Rate 61 88 Respiratory Rate 11 L 19 H Respiratory Effort Respiratory Pattern Blood Pressure 133/74 H 142/78 H 154/69 H Blood Pressure Mean 92 96 90 Pulse Ox 95 Oxygen Delivery Method MDM MDM MDM Narrative Medical decision making narrative: Concern is for injuries during her fall versus syncopal episode. The differential diagnosis does include syncopal episode, intracranial hemorrhage, shoulder fracture versus dislocation versus fracture dislocation versus contusion. I do not have concern for new fracture of her left lower extremity, and I offered to x-ray her left knee, but the patient declined as she reaffirms that she was wearing her knee brace. However, her daughter is concerned that she may have a new injury. I reviewed her laboratory work and she has normal white count 5.2 with hemoglobin normal at 12.0, hematocrit 36.5, platelet count 233. BMP is remarkable for sodium of 140 and normal with normal potassium, BUN 17 and creatinine 1.19. Glucose 91. EKG obtained and interpreted by myself independently as normal sinus rhythm at 60 bpm without ectopy or acute ST changes. I reviewed the radiology report of the CT of the brain and there is no acute intracranial hemorrhage. I also reviewed the radiology reports for the C, T, and L-spine and there are no acute fractures noted, but she does have the old compression fractures that appear stable. X-ray of the left knee interpreted byjayesh independently shows no evidence of an acute fracture, there is the healing patellar fracture. I reviewed the radiology report which confirms my independent interpretation. X-ray of the left shoulder shows no dislocation butthere is a clavicular fracture noted. I reviewed the radiology report which confirms my independent interpretation. I did do individual clavicle x-rays, and on my interpretation of the dedicated clavicle films, there is a comminuted with inferior displacement left close clavicular fracture. I reviewed the radiology report which also confirms my independent interpretation. At this point in time, her urinalysis is still pending. She will be placed in asling given her clavicle fracture, but given her knee immobilizer as well, in discussion with her daughter, she is unable to care for her as she has 2 limbs that are immobilized. She was recently discharged from rehab. Given her clinical situation, I will discuss the patient with Dr. Gale for at least observation versus admission for probable placement back into rehabilitation. In discussion with Dr. Gale, she will be assigned observation on the general medical floor. Patient is in stable condition. History & Record Review Discussion w/independent historian: Patient and Family Additional record(s) reviewed:: Prior ED visit and Prior labs Lab Data Attestation: I reviewed the patient's lab results. Labs: Laboratory Results - last 24 hr 11/27/24 18:08 WBC 5.2 RBC 3.97 L Hgb 12.0 Hct 36.5 L MCV 91.9 MCH 30.2 MCHC 32.9 RDW Std Deviation 43.1 RDW Coeff of Gabi 12.8 Plt Count 233 MPV 12.1 H Immature Gran % (Auto) 1.200 H Neut % (Auto) 59.3 Lymph % (Auto) 23.8 [place] % (Auto) 12.2 H Eos % (Auto) 2.5 Baso % (Auto) 1.0 Absolute Neuts (auto) 3.1 Absolute Lymphs (auto) 1.23 Nucleated RBC % 0 Sodium 140 Potassium 4.4 Chloride 104 Carbon Dioxide 24.0 Anion Gap 11 BUN 17 Creatinine 1.19 Estim Creat Clear Calc 23.47 L Est GFR (MDRD) Non-Af 44 L BUN/Creatinine Ratio 14.3 Glucose 91 Calcium 9.5 Radiography Diagnostic Testing: Clinical Impression(s) from Imaging Studies Shoulder X-Ray 04/17/25 18:54 IMPRESSION: Acute comminuted inferiorly displaced fracture of the distal left clavicle. Reading Location: [facility] Thoracic Spine CT 11/27/24 18:54 IMPRESSION: No acute fracture or subluxation. Extensive compression fracture deformity of the thoracic spine as described above. Large hiatal hernia with circumferential wall thickening of the distal esophagus. Esophagram may be helpful for further characterization. Patchy bibasilar pulmonary infiltrates. Reading Location: [facility] Brain CT 11/27/24 19:16 IMPRESSION: NO ACUTE INTRACRANIAL HEMORRHAGE Reading Location: [facility] Knee X-Ray 11/27/24 19:16 IMPRESSION: No change in healing fracture of the patella. No new fracture. Moderate arthrosis. Reading Location: [facility] Lumbar Spine CT 11/27/24 19:25 IMPRESSION: No acute fracture or subluxation. Multiple chronic compression fractures with vertebroplasty at L1. Degenerative disc disease as described above. Reading Location: [facility] Cervical Spine CT 11/27/24 19:30 IMPRESSION: No acute fracture. Slight anterolisthesis of C4 on C5. Reading Location: [facility] Clavicle X-Ray 11/27/24 20:01 IMPRESSION: Acute comminuted inferiorly displaced fracture of the distal left clavicle. Reading Location: [facility] Discharge Plan Dx/Rx/DC Orders Clinical Impression: Fall, Closed fracture of left clavicle, Immobility Disposition Disposition: Acute Care Hospital [facility] What to do if you have Problems For any increased pain, shortness of breath, bleeding, nausea or vomiting, chestpain, or any unexpected problems, contact your Primary Care Provider. Call [employer] [facility] ([phone]) or report to the closest Emergency Room. Call 911 if necessary. 11/27/242199 <Electronically signed by Albin Plummer MD> Cosigner Signature (if applicable): CC: Dr. Rehan Lucero, DO ~ Signed [facility] Work Phone: [phone] Evaluation note* Diagnosis Onset Date Resolution Status Admit Date Aortic regurgitation acute Apri l 2024 2:13pm Essential (primary) hypertension chronic November 26, 2024 2:13pm History of coronary artery stent placement May 31, 2012 chronic November 26, 2 025 2:13pm History of loop recorder May 05, 2019 c hronic November 26, 2024 2:13pm Hyperlipidemia chronic November 2:13pm Paroxysmal atrial fibrillation chronic November 26, 2024 2:13pm Closed fracture of left clavicle acute November 27, 2024 9:37pm Fall acute November 27 9:37pm Immobility acute November 27 9:37pm [facility] Work Phone: 1(314) 543-537704-16-2025 Evaluation note* Diagnosis Onset Date Resolution Status Admit Date Aortic regurgitation acute Apri l 2024 2:13pm Essential (primary) hypertension chronic November 26, 2024 2:13pm History of coronary artery stent placement May 31, 2012 chronic November 26, 2 025 2:13pm History of loop recorder May 05, 2019 c hronic November 26, 2024 2:13pm Hyperlipidemia chronic November 2:13pm Paroxysmal atrial fibrillation chronic November 26, 2024 2:13pm Closed fracture of left clavicle inactive November 27, 2024 9:37pm Fall inactive November 27 9:37pm Immobility inactive November 27 9:37pm [facility] Work Phone: 1(689) 248-482012-05-2024 Nurse Progress note Patient tolerated injection without signs or symptoms of reaction patient left the unit without incident. Digitally Signed by Sheryl Sandy RN on 07/17/2024 11:54 AM [facility]06-24-2024 Evaluation + Plan noteExtracted from: Title:Clinical Document Author:LOUIS PEARCE Date:02/04/24 [place] ADMISSION HISTORY AN D PHYSICIAL CHIEF COMPLAINT: HISTORY OF PRESENT ILLNESS: REVIEW OF SYSTEMS: ACTIVE PROBLEMS: (38) Abnormal x-ray of forearm (408229027) Anxiety (29089674) Balance problems (8882304274) Bradycardia (90438229) CAD (coronary artery disease) (24690421) Carpal tunnel syndrome, left (24681168) Chronic back pain (737874229) Chronic diastolic heart failure (6003085379) Chronic nausea (0744059425) Chronic systolic heart failure (4873050387) Depression (931604602) Dizziness (0357092650) Dysphagia (26945540) Eosinophilic esophagitis (211293823) Fibromyalgia (49422622) GERD (gastroesophageal reflux disease) (6387751239) Hiatal hernia (890165046) History of compression fracture of vertebral column (0048405835) HTN (hypertension) (9303617616) Hx of fall in Mar with R pelvic hairline fx, R wrist fx and R clavicle fx with surgery Hyperkalemia (60884879) Hyperlipidemia (627308980) Hypothyroidism (09960456) Irregular heart beat (361562220) Irritable bowel syndrome with diarrhea (402321672) Large hiatal hernia (232863397) Left foot pain (065608776) Left hip pain (67198265) Lightheadedness (9472631455) Neck pain (239269920) Osteoporosis (682193583) Peripheral edema (291731711) Personal history of COVID-19 (8199521963) RA (rheumatoid arthritis) (463741496) Restless leg syndrome (42851630) Screening for colon cancer (325409974) Stage 3b chronic kidney disease (CKD) (8252834394) Syncope (372720911) MEDICATIONS: Active Inpt Meds: onabotulinumtoxinA (Botox) Start: 02/04/24 9:00:00 EDT, Dose = 100 unit(s), = 1 vial(s), Miscellaneous, AsDirected, 0 Active PRN Meds: None One Time Meds: None Active IV Meds: Lactated Ringers Infusion 1,000 mL (LR 1,000 mL) Start: 02/04/24 9:12:00 EDT, Rate: 50 mL/hr, 02/04/24 9:12:00 EDT ALLERGIES: (3) Darvocet-N 100 Percocet 7.5/325 Ultram FAMILY HISTORY: SOCIAL HISTORY: PHYSICAL EXAM: VITALS: FgnvqlLlgyNPJsgpyTKSuB2BDY5KixzDj(kg) 02/03 09:3037.1--181445GQ04/24 46.8 24 Hr Tmax: 37.1 at 02/03 09:30 36 Hr Tmax: 37.1 at 02/03 09:30 Vital Signs are the last 5 in the past 48 hours. Weights display the last 5 within 7 days. Initial Wt: 02/03 46.8 kg 103 lb Current Wt: 02/03 46.8 kg 103 lb GENERAL: HEENT: CARDIOVASCULAR: RESPIRATORY: ABDOMEN: EXREMETIES: NEUROLOGICAL: PSYCHIATRIC: LABS: No 36hr Lab Data DIAGNOSTICS: IMPRESSION: PLAN: History and Physical Update I have examined the patient; reviewed the H&P and there are no changes to the H&P unless noted below. Future Appointments Appointment Date:07/29/2024 11:30:00 AM Scheduled Provider:REHAN LUCERO DO Location:[facility] Appointment Type:[facility] 06-24-2024 Hospital Discharge instructions Patient Education 02/04/2024 10:20:19 Monitored Anesthesia Care, Care After Monitored Anesthesia Care, Care After These instructions provide you with information about caring for yourself after your procedure. Your health care provider may also give you more specific instructions. Your treatment has been plannedaccording to current medical practices, but problems sometimes occur. Call your health care provider if you have any problems or questions after your procedure. What can I expect after the procedure? After your procedure, you may: Feel sleepy for several hours. Feel clumsy and have poor balance for several hours. Feel forgetful about what happened after the procedure. Have poor judgment for several hours. Feel nauseous or vomit. Have a sore throat if you had a breathing tube during the procedure. Follow these instructions at home: For at least 24 hours after the procedure: Have a responsible adult stay with you. It is important to have someone help care for you until youare awake and alert. Rest as needed. Do not: ?Participate in activities in which you could fall or become injured. ?Drive. ?Use heavy machinery. ?Drink alcohol. ?Take sleeping pills or medicines that cause drowsiness. ?Make important decisions or sign legal documents. ?Take care of children on your own. Eating and drinking Follow the diet that is recommended by your health care provider. If you vomit, drink water, juice, or soup when you can drink without vomiting. Make sure you have little or no nausea before eating solid foods. General instructions Take mbwg-bct-cigubee and prescription medicines only as told by your health care provider. If you have sleep apnea, surgery and certain medicines can increase your risk for breathing problems. Follow instructions from your health care provider about wearing your sleep device: ?Anytime you are sleeping, including during daytime naps. ?While taking prescription pain medicines, sleeping medicines, or medicines that make you drowsy. If you smoke, do not smoke without supervision. Keep all follow-up visits as told by your health care provider. This is important. Contact a health care provider if: You keep feeling nauseous or you keep vomiting. You feel light-headed. You develop a rash. You have a fever. Get help right away if: You have trouble breathing. Summary For several hours after your procedure, you may feel sleepy and have poor judgment. Have a responsible adult stay with you for at least 24 hours or until you are awake and alert. This information is not intended to replace advice given to you by your health care provider. Make sure you discuss any questions you have with your health care provider. Document Released: 11/19/2016 Document Revised: 10/28/2018 Document Reviewed: 11/19/2016 99tests Patient Education 2020 [employer]. 02/04/2024 10:20:04 Esophagogastroduodenoscopy, Care After (71322) Esophagogastroduodenoscopy, Care After Refer to this sheet in the next few weeks. These instructions provide you with information about caring for yourself after your procedure. Your health care provider may also give you more specific instructions. Your treatment has been planned according to current medical practices, but problems sometimes occur. Call your health care provider if you have any problems or questions after your procedure. What can I expect after the procedure? After the procedure, it is common to have: A sore throat. Nausea. Bloating. Dizziness. Fatigue. Follow these instructions at home: Do not eat or drink anything until the numbing medicine (local anesthetic) has worn off and your gag reflex has returned. You will know that the local anesthetic has worn off when you can swallow comfortably. Do not drive for 24 hours if you received a medicine to help you relax (sedative). If your health care provider took a tissue sample for testing during the procedure, make sure to get your test results. This is your responsibility. Ask your health care provider or the department performing the test when your results will be ready. Keep all follow-up visits as told by your health care provider. This is important. Contact a health care provider if: You cannot stop coughing. You are not urinating. You are urinating less than usual. Get help right away if: You have trouble swallowing. You cannot eat or drink. You have throat or chest pain that gets worse. You are dizzy or light-headed. You faint. You have nausea or vomiting. You have chills. You have a fever. You have severe abdominal pain. You have black, tarry, or bloody stools. This information is not intended to replace advice given to you by your health care provider. Make sure you discuss any questions you have with your health care provider. Document Released: 07/16/2013 Document Revised: 01/04/2017 Document Reviewed: 06/22/2016 99tests Interactive Patient Education 2019 [employer]jur. Follow Up Care 01/29/2024 11:22:24 With:LOUIS PEARCE MD Address: [address] [place] [phone] When: Unknown Comments:CALL DR PEARCE WITH ANY QUESTONS OR CONCERNS. GO TO THE EMERGENCY ROOM WITH ANY URGENT CONCERNS. [facility] 06-24-2024 Note Discharge Instructions Thank you for allowing [facility] to assist you with your healthcare needs. The following is importantdischarge information regarding your hospital visit. Your Care Team REHAN LUCERO DO, DR What to do next Scheduled Follow-Up Appointments Appointment Type [facility] With [facility] 11[facility]30 AM [facility] [place] [phone] Confirmed Follow Up Appointments Follow Up with LOUIS PEARCE MD Where:[address] [place] [address]- [phone] Additional Information: CALL DR PEARCE WITH ANY QUESTONS OR CONCERNS. GO TO THE EMERGENCY ROOM WITHANY URGENT CONCERNS. The Following Activity and Diet Have Been Ordered for You Discharge Activity - Ordered -- NO activity restrictions, 02/04/24 10:16:00 EDT Discharge Diet - Ordered -- Follow the post-operative/post-procedure diet instructions provided by your physician's office.,02/04/24 10:16:00 EDT The Following Equipment Has Been Ordered for You Discharge Home Equipment Discharge Wound Care - Ordered -- Follow the post-operative/post-procedure wound care instructions provided by your physician's office., 02/04/24 10:16:00 EDT Someone Will Contact You Regarding These Home Health Referrals No home referrals have been ordered for you. No one will call you. Allergies Darvocet-N 100 Percocet 7.5/325 Ultram Medications Please ask your primary doctor or pharmacist before taking any other medication not listed, including over the counter drugs, herbal medications, vitamins and or supplements as they may interact withyour home medications. What How Much When Why Instructions Last Dose Unchanged acetaminophen (Tylenol Extra Strength 500 mg oral tablet) 2 tab(s) by mouth Every 6 hours Unchanged amLODIPine (amLODIPine 5 mg oral tablet) 1 tab(s) by mouth Once a day Unchanged aspirin (aspirin 81 mg oral delayed release tablet) 1 tab(s) by mouth Once a day Unchanged denosumab (Prolia 60 mg/ mL subcutaneous solution) 1 Milliliter Subcutaneous Every 6 months Osteoporosis Unchanged DME (DME MISCellaneous) See instructions Peripheral edema bilateral knee high compression hose 20-30 medium, Dx: R60.9 Unchanged gabapentin (gabapentin 100 mg oral capsule) 1 cap Four (4) times a day Dr Cuenca Unchanged herbal/ nutritional product (Probiotic) Unchanged levothyroxine (levothyroxine 100 mcg (0.1 mg) oral tablet) 1 tab(s) by mouth Once a day Duration: 100 Days Unchanged loperamide (loperamide 2 mg oral capsule) 2 cap by mouth Two (2) times a day Duration: 100 Days Unchanged metoprolol (Lopressor 25mg--USE metoprolol tartrate 25 mg oral tablet) 1 tab(s) Two (2) times a day Unchanged metoprolol (metoprolol tartrate 25 mg oral tablet) 1 tab(s) by mouth Two (2) times a day Unchanged nitroGLYcerin (Nitrostat 0.4 mg sublingual tablet) 1 tab(s) under the tongue Every 5 minutes as needed for as needed for chest pain Unchanged pantoprazole (pantoprazole 40 mg oral enteric coated tablet) 1 tab(s) by mouth Once a day Unchanged sertraline (sertraline 50 mg oral tablet) 2 tab(s) by mouth Once a day Unchanged spironolactone (spironolactone 25 mg oral tablet) 1 tab(s) by mouth Once a day Unchanged traMADol (traMADol 25 mg oral tablet) 1 tab(s) by mouth Every 12 hours as needed for as needed for pain not to exceed 400 mg/ day Please take this list to your next doctor s visit. Bring all medications you take, including over the counter medications, herbals and other supplements with you to your doctor s visit. Patients and families are reminded to discard old lists and to update any records with all medication providers or retail pharmacies. Education Materials Monitored Anesthesia Care, Care After These instructions provide you with information about caring for yourself after your procedure. Your health care provider may also give you more specific instructions. Your treatment has been plannedaccording to current medical practices, but problems sometimes occur. Call your health care provider if you have any problems or questions after your procedure. What can I expect after the procedure? After your procedure, you may: Feel sleepy for several hours. Feel clumsy and have poor balance for several hours. Feel forgetful about what happened after the procedure. Have poor judgment for several hours. Feel nauseous or vomit. Have a sore throat if you had a breathing tube during the procedure. Follow these instructions at home: For at least 24 hours after the procedure: Have a responsible adult stay with you. It is important to have someone help care for you until youare awake and alert. Rest as needed. Do not: ? Participate in activities in which you could fall or become injured. ? Drive. ? Use heavy machinery. ? Drink alcohol. ? Take sleeping pills or medicines that cause drowsiness. ? Make important decisions or sign legal documents. ? Take care of children on your own. Eating and drinking Follow the diet that is recommended by your health care provider. If you vomit, drink water, juice, or soup when you can drink without vomiting. Make sure you have little or no nausea before eating solid foods. General instructions Take hpgm-rey-xbpnchf and prescription medicines only as told by your health care provider. If you have sleep apnea, surgery and certain medicines can increase your risk for breathing problems. Follow instructions from your health care provider about wearing your sleep device: ? Anytime you are sleeping, including during daytime naps. ? While taking prescription pain medicines, sleeping medicines, or medicines that make you drowsy. If you smoke, do not smoke without supervision. Keep all follow-up visits as told by your health care provider. This is important. Contact a health care provider if: You keep feeling nauseous or you keep vomiting. You feel light-headed. You develop a rash. You have a fever. Get help right away if: You have trouble breathing. Summary For several hours after your procedure, you may feel sleepy and have poor judgment. Have a responsible adult stay with you for at least 24 hours or until you are awake and alert. This information is not intended to replace advice given to you by your health care provider. Make sure you discuss any questions you have with your health care provider. Document Released: 11/19/2016 Document Revised: 10/28/2018 Document Reviewed: 11/19/2016 99tests Patient Education 2020 [employer] Esophagogastroduodenoscopy, Care After Refer to this sheet in the next few weeks. These instructions provide you with information about caring for yourself after your procedure. Your health care provider may also give you more specific instructions. Your treatment has been planned according to current medical practices, but problems sometimes occur. Call your health care provider if you have any problems or questions after your procedure. What can I expect after the procedure? After the procedure, it is common to have: A sore throat. Nausea. Bloating. Dizziness. Fatigue. Follow these instructions at home: Do not eat or drink anything until the numbing medicine (local anesthetic) has worn off and your gag reflex has returned. You will know that the local anesthetic has worn off when you can swallow comfortably. Do not drive for 24 hours if you received a medicine to help you relax (sedative). If your health care provider took a tissue sample for testing during the procedure, make sure to get your test results. This is your responsibility. Ask your health care provider or the department performing the test when your results will be ready. Keep all follow-up visits as told by your health care provider. This is important. Contact a health care provider if: You cannot stop coughing. You are not urinating. You are urinating less than usual. Get help right away if: You have trouble swallowing. You cannot eat or drink. You have throat or chest pain that gets worse. You are dizzy or light-headed. You faint. You have nausea or vomiting. You have chills. You have a fever. You have severe abdominal pain. You have black, tarry, or bloody stools. This information is not intended to replace advice given to you by your health care provider. Make sure you discuss any questions you have with your health care provider. Document Released: 07/16/2013 Document Revised: 01/04/2017 Document Reviewed: 06/22/2016 99tests Interactive Patient Education 2019 [employer]jur. Additional Information VACCINATE! IT SAVES LIVES! Members of the community who have not yet received the COVID-19 vaccine and would like to receive it can visit one of [facility] vaccine clinics. There are many vaccine clinic locations within the [facility]. For locations and available times, please visit [email or web address].[place].gov/. It is important to note that some COVID mobile vaccine clinics are held outdoors and may be canceled in rainy or stormy conditions. To learn more about pediatric vaccinations (ages 5-11), we invite you to visit the [facility] webpage. [email or web address]/[email or web address] [email or web address].htmlTo learn more about the COVID-19 vaccine, we invite you to visit the CDC website for a list of frequently asked questions.https://www.cdc.gov/coronavirus/2019-ncov/vaccines/faq.html [facility] Patient Portal Access Instructions: Stay connected with your healthcare team and access your personal medical information anytime with the [facility] Patient Portal. Please follow the directions below to create your [facility] account: 1.Access the email account you provided upon registration to the hospital/physician office.2.Look for an invitation email from [facility].3.Open the email and access the invitation link: AcceptInvitation to [facility].4.Fill in the required [place] to create your account. To access your account, visit [email or web address]. Click the blue button labeled Access Patient Portal and then log in with the username and password that you created in the steps above. You will be able to view your test results, lab results, a summary of your visits, upcoming appointments and more. There is also a convenient messaging option where you can send secure messages to your p rovider. In addition, you will have the ability to download any documents or summaries to your computer and/or send the information securely to a physician. Remember that your healthcare information is confidential, so carefully consider who you will allowto register on the [facility] Patient Portal for access to your information. You can also access the [facility] Patient Portal on the [facility] cherelle. Simply click on Patient Portal and then log into your account. If you would like to receive a full copy of your medical records, please contact the [facility] Medical Records Department by calling [phone], Sunday through Sunday between 8 a.m. and 4:30 p.m. HOW TO SAFELY DISPOSE OF PRESCRIPTION MEDICATIONS Please use one of the following methods to safely dispose of your unused medications. 1.Use a drug disposal kit: the drug disposal pouch allows you to safely discard your old and unuseddrugs. Ask your nurse to give you one when you are discharged.2.Visit a local take-back location: Many local pharmacies and police departments have programs that collect old and unwanted prescriptiondrugs. Call your local pharmacy or go to http://bit.ly/6S5Yb8v to find one close to you.3.Make use of household items: Use cat litter or old coffee grounds to dispose medications if other options arenot available. Mix your drugs with these household products, seal them in an airtight container andthrow it into the garbage. Call [facility]: [phone] to be sure your drugs can be disposed of in this way. Some medicines may require a different approach.4.Never flush your medications down the toilet. IF YOU HAVE BEEN PRESCRIBED AN OPIOID FOR PAIN If you have been prescribed an opioid (such as hydrocodone, oxycodone or morphine), it is critical to understand the possible side effects and risks of opioid pain medications. Even when taken as directed, opioids can have several side effects including: Tolerance, meaning you might need to take more of a medication for the same pain relief. Nausea, vomiting and/or constipation. Sleepiness, dizziness, dry mouth, confusion, depression or itching. Physical dependence, meaning you have withdrawal symptoms when a medication is stopped, can develop within a few days. KNOW YOUR RESPONSIBILITIES It is important to know exactly how much and how often to take the opioid pain medications you are prescribed. Never take opioids in higher amounts or more often than prescribed. Do not combine opioids with alcohol or other drugs that cause drowsiness, such as benzodiazepines, also known as benzos, including diazepam and alprazolam, muscle relaxants or sleep aids. Never sell or share prescription opioids. This is illegal. Store opioids in a secure place and out of reach of others (including children, family, friends and visitors). The last page of this document has been signed and retained as a CHART COPY. Signatures Patient Education Materials Monitored Anesthesia Care, Care After Esophagogastroduodenoscopy, Care After (73550) Medication Leaflets My discharge plan and instructions have been reviewed and explained to me and I,RADHA MAYERS understand my current condition and have read and understand these discharge instructions. I have received a written copy of the plan/instructions. If I have questions, I am aware that I should contact my doctor. 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 Scope was passed regularization of the esophagus there were multiple tertiary contractions and spasm of the esophagus theZ-line was 25 cm from the incisors hernia extending for about 3 cm. EXTR diffuse erythema no distinct ulcers follow-up the duodenum and sweep of the duodenum were normal reflexion performed the stomach showed a large hiatal hernia. Point the endoscope was withdrawn back up towards the GE junction was difficult to hold in place due to the severe contractility of the esophagus. Using a sclerotherapy needle and 100 units of Botox attempts were made to inject all 4 quadrants with 20 units of Botox each. Again it was quite difficult to hold the position due to the severe contractility of the esophagus. Additional 20 units were injected just above the lower esophageal sphincter hopefully to decrease some of the contractility. Endoscope was withdrawn and the patient tolerated the procedure Post-Procedure Exam Esophageal spasm Findings Diffuse esophageal spasm Complications None apparent Total Time Approximately 25 minutes Assessment/Plan Orders: Lactated Ringers Infusion 1,000 mL(LR 1,000 mL), 1000 mL, Intravenous onabotulinumtoxinA(Botox), 100 unit(s)= 1 vial(s), Miscellaneous, AsDirected Bedrest, 02/04/24 10:16:00 EDT, Strict, continuous, Constant order, Lying on side until alert or asordered Bedrest, 02/04/24 10:16:00 EDT, Strict, continuous, Constant order, Lying on side until alert or asordered Call Parameters, 02/04/24 10:16:00 EDT, Notify for vomiting, severe pain, signs of bleeding, severeabdominal pain, distention or rigidity, Constant order Communication Order (scheduled), 02/04/24 9:12:00 EDT, Once, 02/04/24 9:12:00 EDT, Pathology TissueRequest Communication Order (scheduled), 02/04/24 9:12:00 EDT, Once, 02/04/24 9:12:00 EDT, Urine Test or waiver for women of child bearing age Communication Order (scheduled), 02/04/24 9:12:00 EDT, Once, 02/04/24 9:12:00 EDT, Fasting Blood Sugar priot to procedure of patient is diabetic Diet Order, 02/04/24 10:16:00 EDT, Start Meal: Next meal, Clear Liquid Diet, Post exam or after gagreflex returns if EGD, Constant Order, : N/A, : N/A Discharge, 02/04/24 9:12:00 EDT, Discharged to: Home, when able to ambulate and after being seen byphysician Discharge Activity, NO activity restrictions, 02/04/24 10:16:00 EDT Discharge Diet, Follow the post-operative/post-procedure diet instructions provided by your physician's office., 02/04/24 10:16:00 EDT Discharge Wound Care, Follow the post-operative/post-procedure wound care instructions provided by your physician's office., 02/04/24 10:16:00 EDT Post Procedure Assessment, 02/04/24 10:16:00 EDT, Stop Date 02/04/24 10:16:00 EDT, [facility] until Jayla Score of 12 or Preprocedure Sign Consent, 02/04/24 9:12:00 EDT, Once, For EGD Vital Signs, 02/04/24 10:16:00 EDT, q15min, 1 hour(s), 02/04/24 11:15:00 EDT Vital Signs, 02/04/24 10:16:00 EDT, q30min, 1 hour(s), 02/04/24 11:00:00 EDT Vital Signs PRN, 02/04/24 10:16:00 EDT, PRN order Follow Up/Recommendation Observe the patient swallowing after the Botox injection consider repeating her manometry study Digitally Signed by LOUIS PEARCE MD on 02/04/2024 10:19 AM [facility]06-24-2024 Anesthesiology Consult note Patient: RADHA MAYERS Age: 88 years Sex: Female : 1935 Associated Diagnoses: None Author: LEONARDO RIGGINS SUPERVISOR ACCOUNTS RECEIVABLE-WINDOWS 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 SPECIALIST Assessment Postanesthesia assessment Vitals: Vital signs from flowsheet : Vital Signs 02/04/2024 10:10 EDT Heart Rate Monitored 75 bpm bpm Respiratory Rate - Anes 20 br/min br/min Systolic Blood Pressure Non-Invasive 119 mmHg mmHg Diastolic Blood Pressure Non-Invasive 63 mmHg mmHg 02/04/2024 10:05 EDT Heart Rate Monitored 78 bpm bpm Respiratory Rate - Anes 19 br/min br/min Systolic Blood Pressure Non-Invasive 122 mmHg mmHg Diastolic Blood Pressure Non-Invasive 67 mmHg mmHg 02/04/2024 10:00 EDT Heart Rate Monitored 72 bpm bpm Respiratory Rate - Anes 20 br/min br/min Systolic Blood Pressure Non-Invasive 112 mmHg mmHg Diastolic Blood Pressure Non-Invasive 67 mmHg mmHg 02/04/2024 9:55 EDT Respiratory Rate - Anes 17 br/min br/min Systolic Blood Pressure Non-Invasive 134 mmHg mmHg Diastolic Blood Pressure Non-Invasive 77 mmHg mmHg 02/04/2024 9:52 EDT Systolic Blood Pressure Non-Invasive 167 mmHg mmHg Diastolic Blood Pressure Non-Invasive 81 mmHg mmHg 02/04/2024 9:30 EDT Temperature Temporal Artery 37.1 DegC Peripheral Pulse Rate 67 bpm Respiratory Rate 13 br/min LOW Systolic Blood Pressure Non-Invasive 144 mmHg HI Diastolic Blood Pressure Non-Invasive 67 mmHg , Measurements from flowsheet . Mental status: alert & oriented x 4. Respiratory function: respirations are non-labored. Respiratory support: none. CV function: Normal rate. Cardiovascular support: none. Pain. Nausea status: see nursing documentation of medications. Postoperative hydration status: within normal limits. Digitally Signed by LEONARDO RIGGINS on 02/04/2024 10:13 AM [facility]06-24-2024 Note [place] ADMISSION HISTORY AND PHYSICIAL CHIEF COMPLAINT: HISTORY OF PRESENT ILLNESS: REVIEW OF SYSTEMS: ACTIVE PROBLEMS: (38) Abnormal x-ray of forearm (620349068) Anxiety (36298826) Balance problems (6549956246) Bradycardia (22184866) CAD (coronary artery disease) (25316467) Carpal tunnel syndrome, left (85676212) Chronic back pain (965547433) Chronic diastolic heart failure (6560689846) Chronic nausea (5316276161) Chronic systolic heart failure (8879253690) Depression (567996102) Dizziness (5045047555) Dysphagia (52101199) Eosinophilic esophagitis (775736694) Fibromyalgia (78955262) GERD (gastroesophageal reflux disease) (5037795484) Hiatal hernia (531309896) History of compression fracture of vertebral column (6838514194) HTN (hypertension) (8210560940) Hx of fall in Mar with R pelvic hairline fx, R wrist fx and R clavicle fx with surgery Hyperkalemia (14463020) Hyperlipidemia (741180346) Hypothyroidism (16482827) Irregular heart beat (317727810) Irritable bowel syndrome with diarrhea (573900484) Large hiatal hernia (656047946) Left foot pain (816672206) Left hip pain (49973599) Lightheadedness (9987552921) Neck pain (547940166) Osteoporosis (202146328) Peripheral edema (368783607) Personal history of COVID-19 (4779851695) RA (rheumatoid arthritis) (579126180) Restless leg syndrome (44465011) Screening for colon cancer (483762261) Stage 3b chronic kidney disease (CKD) (8336246428) Syncope (113948114) MEDICATIONS: Active Inpt Meds: onabotulinumtoxinA (Botox) Start: 02/04/24 9:00:00 EDT, Dose = 100 unit(s), = 1 vial(s), Miscellaneous, AsDirected, 0 Active PRN Meds: None One Time Meds: None Active IV Meds: Lactated Ringers Infusion 1,000 mL (LR 1,000 mL) Start: 02/04/24 9:12:00 EDT, Rate: 50 mL/hr, 02/04/24 9:12:00 EDT ALLERGIES: (3) Darvocet-N 100 Percocet 7.5/325 Ultram FAMILY HISTORY: SOCIAL HISTORY: PHYSICAL EXAM: VITALS: LbgtieGbweSPNntxuUEHwQ6VLU2XcjdLd(kg) 02/03 09:3037.1--454611NB58/24 46.8 24 Hr Tmax: 37.1 at 02/03 09:30 36 Hr Tmax: 37.1 at 02/03 09:30 Vital Signs are the last 5 in the past 48 hours. Weights display the last 5 within 7 days. Initial Wt: 02/03 46.8 kg 103 lb Current Wt: 02/03 46.8 kg 103 lb GENERAL: HEENT: CARDIOVASCULAR: RESPIRATORY: ABDOMEN: EXREMETIES: NEUROLOGICAL: PSYCHIATRIC: LABS: No 36hr Lab Data DIAGNOSTICS: IMPRESSION: PLAN: History and Physical Update I have examined the patient; reviewed the H&P and there are no changes to the H&P unless noted below. Digitally Signed by LOUIS PEARCE MD on 02/04/2024 09:54 AM [facility]06-24-2024 Anesthesiology Consult note Patient: RADHA MAYERS Age: 88 years Sex: Female : 1935 Associated Diagnoses: None Author: LEONARDO RIGGINS Preoperative Information Time of last food or liquid consumption: 02/04/2024 00:00:00 Anesthesia history Patient's history: negative. Family's history: negative. Health Status Allergies: Allergic Reactions (Selected) Severity Not Documented Darvocet-N 100- No reactions were documented. Percocet 7.5/325- No reactions were documented. Ultram- No reactions were documented., Allergies (3) ActiveSeverityReaction Darvocet-N 100None Documented Percocet 7.5/325None Documented UltramNone Documented Current medications: (Selected) Inpatient Medications Ordered Botox: 100 unit(s), 1 vial(s), Miscellaneous, AsDirected LR 1,000 mL: 50 mL/hr, Intravenous Prescriptions Prescribed DME MISCellaneous: See Instructions, bilateral knee high compression hose 20-30 medium, Dx: R60.9, 1 EA, 0 Refill(s) Prolia 60 mg/mL subcutaneous solution: 60 mg, 1 mL, Subcutaneous, q6mo, 1 mL, 0 Refill(s) levothyroxine 100 mcg (0.1 mg) oral tablet: 100 mcg, 1 tab(s), Oral, qDay, for 100 day(s), 100 tab(s), 3 Refill(s) loperamide 2 mg oral capsule: 4 mg, 2 cap(s), Oral, BID, for 100 day(s), 400 cap(s), 1 Refill(s) sertraline 50 mg oral tablet: 100 mg, 2 tab(s), Oral, qDay, 180 tab(s), 3 Refill(s) spironolactone 25 mg oral tablet: 25 mg, 1 tab(s), Oral, qDay, 90 tab(s), 3 Refill(s) Documented Medications Documented Lopressor 25mg--USE metoprolol tartrate 25 mg oral tablet: 25 mg, 1 tab(s), BID, 180, 0 Refill(s) Nitrostat 0.4 mg sublingual tablet: 0.4 mg, 1 tab(s), Sublingual, q5min, PRN: as needed for chest pain, 100 tab(s), 0 Refill(s) Probiotic: 0 Refill(s) Tylenol Extra Strength 500 mg oral tablet: 1,000 mg, 2 tab(s), Oral, q6hr, 0 Refill(s) amLODIPine 5 mg oral tablet: 5 mg, 1 tab(s), Oral, qDay, 30 tab(s), 11 Refill(s) aspirin 81 mg oral delayed release tablet: 81 mg, 1 tab(s), Oral, qDay, 0 Refill(s) gabapentin 100 mg oral capsule: 100 mg, 1 cap(s), QID, Dr Cuenca, 0 Refill(s) metoprolol tartrate 25 mg oral tablet: 25 mg, 1 tab(s), Oral, BID, 180 tab(s), 0 Refill(s) pantoprazole 40 mg oral enteric coated tablet: 40 mg, 1 tab(s), Oral, qDay, 90 tab(s), 0 Refill(s) traMADol 25 mg oral tablet: 25 mg, 1 tab(s), Oral, q12h, not to exceed 400 mg/day, PRN: as needed for pain, 0 Refill(s), Medications (2) Active Scheduled: (1) botulinum toxin type A 100 units 100 unit(s) 1 vial(s), Miscellaneous, AsDirected Continuous: (1) Lactated Ringers 1,000 mL 1,000 mL, Intravenous, 50 mL/hr PRN: (0) Problem list: Medical Anxiety / SNOMED CT 25754403 / Confirmed Bradycardia / SNOMED CT 72727565 / Confirmed Carpal tunnel syndrome, left / SNOMED CT 21956823 / Confirmed Chronic diastolic heart failure / SNOMED CT 5549550008 / Confirmed Stage 3b chronic kidney disease (CKD) / SNOMED CT 4701820369 / Confirmed Chronic back pain / SNOMED CT 683655485 / Confirmed Chronic systolic heart failure / SNOMED CT 9210973737 / Confirmed CAD (coronary artery disease) / SNOMED CT 55681561 / Confirmed Dizziness / SNOMED CT 5255787062 / Confirmed Dysphagia / SNOMED CT 29358339 / Confirmed Eosinophilic esophagitis / SNOMED CT 047619662 / Confirmed Fibromyalgia / SNOMED CT 44027714 / Confirmed Left foot pain / SNOMED CT 342809829 / Confirmed GERD (gastroesophageal reflux disease) / SNOMED CT 4963033737 / Confirmed History of compression fracture of vertebral column / SNOMED CT 3333383411 / Confirmed Large hiatal hernia / SNOMED CT 132149804 / Confirmed Hiatal hernia / SNOMED CT 355614822 / Confirmed Left hip pain / SNOMED CT 07688358 / Confirmed Personal history of COVID-19 / SNOMED CT 1947386195 / Confirmed Hyperkalemia / SNOMED CT 27768202 / Confirmed Hyperlipidemia / SNOMED CT 518346158 / Confirmed HTN (hypertension) / SNOMED CT 0709794541 / Confirmed Hypothyroidism / SNOMED CT 50532433 / Confirmed Balance problems / SNOMED CT 0192741191 / Confirmed Irregular heart beat / SNOMED CT 522946534 / Confirmed Irritable bowel syndrome with diarrhea / SNOMED CT 400443122 / Confirmed Lightheadedness / SNOMED CT 5122897661 / Confirmed Chronic nausea / SNOMED CT 0257167090 / Confirmed Neck pain / SNOMED CT 293795656 / Confirmed Osteoporosis / SNOMED CT 204201006 / Confirmed Screening for colon cancer / SNOMED CT 423584073 / Confirmed Peripheral edema / SNOMED CT 822094999 / Confirmed Abnormal x-ray of forearm / SNOMED CT 358232167 / Confirmed Depression / SNOMED CT 430833641 / Confirmed Restless leg syndrome / SNOMED CT 08648106 / Confirmed RA (rheumatoid arthritis) / SNOMED CT 268965989 / Confirmed Syncope / SNOMED CT 839359288 / Confirmed, Active Problems (38) Abnormal x-ray of forearm Anxiety Balance problems Bradycardia CAD (coronary artery disease) Carpal tunnel syndrome, left Chronic back pain Chronic diastolic heart failure Chronic nausea Chronic systolic heart failure Depression Dizziness Dysphagia Eosinophilic esophagitis Fibromyalgia GERD (gastroesophageal reflux disease) Hiatal hernia History of compression fracture of vertebral column HTN (hypertension) Hx of fall in Mar with R pelvic hairline fx, R wrist fx and R clavicle fx with surgery Hyperkalemia Hyperlipidemia Hypothyroidism Irregular heart beat Irritable bowel syndrome with diarrhea Large hiatal hernia Left foot pain Left hip pain Lightheadedness Neck pain Osteoporosis Peripheral edema Personal history of COVID-19 RA (rheumatoid arthritis) Restless leg syndrome Screening for colon cancer Stage 3b chronic kidney disease (CKD) Syncope Histories Past Medical History: Active Syncope (683364427) Chronic back pain (552589584) Resolved Cardiac catheterization, left heart (930643604): Onset on 02/07/2013 at 77 years. Resolved. SOB (shortness of breath) (789472446): Resolved. DVT (deep venous thrombosis) (912828512): Resolved. Pleural effusion (83208573): Resolved. Arm laceration (791463746): Resolved. COVID-19 virus infection (7194100595): Resolved. Cellulitis of left lower extremity (9081181953): Resolved. Family History: Hypertension Mother Father Heart disease Mother Father Blood disorder Father Stroke Mother Diabetes Mother Procedure history: History of left hip replacement (150692798161008) on 02/07/2018 at 82 Years. Cholecystectomy (45121100). Cardiac catheterization (43271740). Angioplasty of artery (731458951). Knee replacement (342480958). Appendectomy (769484922). Hysterectomy (976440268). Cataract extraction (39472106). Tonsillectomy (117720408). Kyphoplasty of fracture of cervical spine using computed tomography (CT) guidance (1590120772). Social History: Social & Psychosocial Habits Alcohol 4Risk Assessment: Denies Alcohol Use 02/04/2024 Use: Never Employment/School 01/29/2024 Status: Retired Substance Abuse 4Risk Assessment: Denies Substance Abuse 02/04/2024 Use: Never Tobacco 02/04/2024 Tobacco Use: Never (less than 100 in l Exposure to Tobacco Smoke Lives in non-smoking home Exercise Comment: none - 05/19/2019 11:51 - Dory Ziegler LPN Home/Environment 02/04/2024 Domestic Concerns None Living situation: Home/Independent Nutrition/Health 02/04/2024 Caffeine intake amount: tea 1 daily Physical Examination Vital Signs 02/04/2024 9:30 EDT Temperature Temporal Artery 37.1 DegC Peripheral Pulse Rate 67 bpm Respiratory Rate 13 br/min LOW Systolic Blood Pressure Non-Invasive 144 mmHg HI Diastolic Blood Pressure Non-Invasive 67 mmHg Vital Signs (last 24 hrs) Last Charted Temp Ljjshuco33.1 DegC (FEB 03 09:30) SBPH 144 mmHg (FEB 03 09:30) DBP67 mmHg (FEB 03 09:30) Measurements from flowsheet : Measurements 02/04/2024 9:30 EDT Height 154.94 cm Admission Weight 46.82 kg [place] Body Weight 47.80 kg Admission Body Mass Index 19.5 m2 Pain assessment: Pain Assessment 02/04/2024 9:30 EDT Primary Pain Location Shoulder Primary Pain Intensity 7 Pain Scale Type 0-10 Pain scale . General: Alert and oriented. Airway: Normal temporomandibular joint mobility, Normal mouth. Mallampati classification: III (soft palate, base of uvula visible). Dentition Evaluation: No teeth. Respiratory: Respirations are non-labored. Neurologic: Alert, Oriented. Review / Management Results review: No qualifying data available , Lab results 02/04/2024 9:43 EDT Wrist Right 02/04/2024 22 gauge Peripheral IV Activity: Insert new site Peripheral IV Site Condition: No complications Peripheral IV Number of Attempts: 1 02/04/2024 9:41 EDT Allergies Yes Lymphedema Therapist On Yes Consent Form Signed Yes Pre-op Preparation Dentures, full removed History & Physical Update On Chart Yes History & Physical On Chart Yes Obstructive Sleep Apnea Assess Completed Yes NPO Status Maintained Implants Verified Yes Pacemaker/AICD Verified Yes Site Verified by Patient/Family Yes Anesthesia Consent Signed Yes Last Fluid Intake 02/03/2024 22:00 Last Food Intake 02/03/2024 19:30 Last Void 02/04/2024 9:42 02/04/2024 9:40 EDT Lactated Ringers Injection Begin Bag 1,000 mL mL 02/04/2024 9:39 EDT SN - Proc - EBL 0 mL 02/04/2024 9:39 EDT SN - Proc - Anesthesia Type MAC SN - Proc - Actual Procedure ESOPHAGOGASTRODUODENOSCOPY WITH DILATION AND BOTOX INJECTION 02/04/2024 9:39 EDT SN - PP - Body Position Lateral Right Side-up Standard Intra-op 02/04/2024 9:39 EDT SN - GCD - Post-operative Diagnosis DYSPHAGIA SN - GCD - Case Level OPD Level 3 02/04/2024 9:39 EDT SN - CAt - Case Attendee SN - CAt - Case Attendee SN - CAt - Case Attendee SN - CAt - Case Attendee SN - CAt - Case Attendee SN - CAt - Case Attendee SN - CAt - Case Attendee SN - CAt - Case Attendee SN - CAt - Role Performed Primary Surgeon SN - CAt - Role Performed WINDOWS TECHNICAL SPECIALIST SN - CAt - Role Performed Pitch Flaker 1 SN - CAt - Role Performed [employer] 02/04/2024 9:30 EDT Height 154.94 cm Admission Weight 46.82 kg [place] Body Weight 47.80 kg Admission Body Mass Index 19.5 m2 Temperature Temporal Artery 37.1 DegC Peripheral Pulse Rate 67 bpm Respiratory Rate 13 br/min LOW Systolic Blood Pressure Non-Invasive 144 mmHg HI Diastolic Blood Pressure Non-Invasive 67 mmHg Primary Pain Location Shoulder Primary Pain Intensity 7 Pain Scale Type 0-10 Pain scale Heart Rhythm Irregular Respirations Unlabored Respiratory Pattern Regular Cough None Oxygen Therapy Room air Oxygen Saturation 96 % Abdomen Description Non-distended, Soft Skin Temperature Warm Skin Description [place], Normal for ethnicity, Dry Skin Integrity Intact Skin Moisture General Dry Extremity Movement Equal Characteristics of Speech Clear Level of Consciousness Alert Strength All Extremities Weak Affect/Behavior Appropriate Orientation Oriented x 4 Assistive Device Cane Positioning Repositions self Activity Status ADL Awake Standard Safety ID band on, Allergy Band on, Call device within reach, Bed in low position, Wheels locked, Visitor at bedside 02/04/2024 9:25 EDT Designated Person #1 We May Share PHI [phone] Designated Person #1 Relationship Daughter Designated Person #2 We May Share PHI Dave [phone] Designated Person #2 Relationship Daughter Additional Designated Person Share PHI Just to two primary Privacy Restrictions Requested None Status N/A Sensory Deficits Hearing deficit, left ear, Hearing deficit, right ear Sleep Apnea Snore No Sleep Apnea Tired No Sleep Apnea Obstruction No Sleep Apnea Pressure Yes Sleep Apnea BMI No Sleep Apnea Age Yes Sleep Apnea Neck No Sleep Apnea Gender No Sleep Apnea Score 2 Diagnosed With Sleep Apnea No Advanced Directives Yes Advance Directive Type [place] Durable Power of Soda Clerk for [facility] [place], [place] Declaration (Living Will) Advance Directive Location Family instructed to bring in copy Infectious Disease Symptoms Patient states no symptoms Infectious Disease Recent Exposure No Alcohol and Drug Use No Employee of Institutional Living No Health Care Employee No History of Exposure to TB No History of Positive Chest X-Ray for TB No History of Positive TB Skin Test No Homeless No Known Immunosuppression No Recent Immigrant No Resident of Institutional Living No Bloody Sputum No Fatigue No Fever No Loss of Appetite No Night Sweats No Persistent Cough > 3 Weeks No Weight Loss No Barriers to Learning None evident Teaching Method Explanation Preferred Spoken Language Andorran Preferred Written Language Andorran Teaching Evaluation No further teaching needed Safety Brochure Information Reviewed Unable to complete [facility] Video Viewed No Information Given by Unable to obtain Patient's Current Physicians Patient's Current Physicians Discharge To, Anticipated Home with family care Prev Test Positive/Diagnosis w/COVID-19 Yes Previous COVID-19 Positive Date 2021 Current Quarantine/Isolated any Illness No Any Contact with Sick Animals/Birds No Traveled Anywhere in Last 30 Days No Lost Weight Unintentionally Recently No Eat Poorly Due to Decreased Appetite No Total MST Score 0 N/A Personal Devices, Patient Valuables Dentures, lower, Dentures, upper, Glasses Anesthesia/Transfusions Prior anesthesia Admission Note-Nursing Same Day Patient History . Assessment and Plan [place] Society [employer] Anesthesiologists (ASA) physical status classification: Class III. Anesthetic Preoperative Plan Anesthetic technique: MAC. Informed consent: signed by patient. Digitally Signed by LEONARDO RIGGINS on 02/04/2024 09:48 AM [facility]01-09-2024 Note ORIGINAL EXAMINATION: BONE DENSITOMETRY 08/21/2023 2:42 pm TECHNIQUE: A bone density dual x-ray absorptiometry (DEXA) scan was performed of the axial (e.g. hips, spine) and/or appendicular (e.g. radius) skeleton as appropriate. COMPARISON: 07/11/2021. HISTORY: ORDERING SYSTEM PROVIDED HISTORY: Reason for Exam: Osteoporosis Screening FINDINGS: T Score Right Femoral Neck: -3.3 Right Femoral Neck: 0.486 (g/cm2) T Score Right Hip: -3.6 Right Hip: 0.499 (g/cm2) T Score Right Forearm: -4.2 Right Forearm: 0.439 (g/cm2) BMD change from previous hip:-7.8% BMD change from previous forearm: 1.9% IMPRESSION: Osteoporosis by WHO criteria. World Health Organization criteria: (Comparing with young normal sex matched population) - Normal: T-score at or above -1 SD (standard deviation) - Osteopenia: T-score between -1 and -2.5 SD - Osteoporosis: T-score at or below -2.5 SD The NOF recommends that FDA-approved medical therapies be considered in post-menopausal women and men age >/= 50 years with a: * Hip or vertebral fracture, or * T-score of /= 20% for major osteoporotic fractures or * >/= 3% for hip fractures All treatment decisions require clinical judgement and consideration of individual patient factors, including patient preferences, comorbidities, previous drug use, risk factors not captured in the FRAX registered model (e.g., frailty, falls, vitamin D deficiency, increased bone turnover, interval significant decline in bone density) and possible under- or over-estimation of fracture risk by FRAX. Interpreted by: Ty Montana DO Preliminary Report By: Ty Montana DO Electronically signed By Ty Montana DO Dictated Date: 08/21/2023 3:25:01 PM Prelim Date: 08/21/2023 3:26:48 PM Sign Date: 08/21/2023 3:26:48 PM Ordering Provider: [place] [id number] Evaluation + Plan noteExtracted from: Title:Clinical Document Author:LOUIS PEARCE Date:12/18/22 [place] ADMISSION HISTORY AN D PHYSICIAL CHIEF COMPLAINT: HISTORY OF PRESENT ILLNESS: REVIEW OF SYSTEMS: ACTIVE PROBLEMS: (33) Abnormal x-ray of forearm (659273944) Anxiety (12291934) CAD (coronary artery disease) (86816162) Carpal tunnel syndrome, left (05373419) Chronic back pain (372835146) Chronic diastolic heart failure (7782959421) Chronic kidney disease (8266224527) Chronic nausea (3065985886) Chronic systolic heart failure (4906647153) Depression (195041623) Dysphagia (78601197) Eosinophilic esophagitis (131948761) Fibromyalgia (05255194) GERD (gastroesophageal reflux disease) (4608229990) Hiatal hernia (656493779) History of compression fracture of vertebral column (0906443851) HTN (hypertension) (1908976597) Hx of fall in Mar with R pelvic hairline fx, R wrist fx and R clavicle fx with surgery Hyperlipidemia (012681297) Hypothyroidism (81068146) Irritable bowel syndrome with diarrhea (356382086) Large hiatal hernia (457931809) Left foot pain (689907194) Left hip pain (52645566) Lightheadedness (9214486158) Neck pain (179750482) Osteoporosis (916522916) Peripheral edema (135412792) Personal history of COVID-19 (2291714980) RA (rheumatoid arthritis) (663943408) Restless leg syndrome (14291354) Screening for colon cancer (062485437) Syncope (711126174) MEDICATIONS: Active Inpt Meds: None Active PRN Meds: None One Time Meds: None Active IV Meds: Lactated Ringers Infusion 1,000 mL (LR 1,000 mL) Start: 12/18/22 7:18:00 EDT, Rate: 50 mL/hr, 12/18/22 7:18:00 EDT ALLERGIES: (3) Darvocet-N 100 Percocet 7.5/325 Ultram FAMILY HISTORY: SOCIAL HISTORY: PHYSICAL EXAM: VITALS: TywbhwTjvnVXBpxllCSZwD1ERV1VjjxBl(kg) 12/18 07:3236.9--021471LU40/08 97.7 24 Hr Tmax: 36.9 at 12/18 07:32 36 Hr Tmax: 36.9 at 12/18 07:32 Vital Signs are the last 5 in the past 48 hours. Weights display the last 5 within 7 days. Initial Wt: 12/18 97.7 kg 215 lb Current Wt: 12/18 97.7 kg 215 lb GENERAL: HEENT: CARDIOVASCULAR: RESPIRATORY: ABDOMEN: EXREMETIES: NEUROLOGICAL: PSYCHIATRIC: LABS: No 36hr Lab Data DIAGNOSTICS: IMPRESSION: PLAN: History and Physical Update I have examined the patient; reviewed the H&P and there are no changes to the H&P unless noted below. Future Appointments Appointment Date:01/25/2023 02:00:00 PM Scheduled Provider:REHAN LUCERO DO Location:[facility] Appointment Type:PC OV Future Scheduled Tests Radiology* XR Spine Cervical AP/LAT 02/22/22 [facility] 05-08-2023 Hospital Discharge instructions Patient Education 12/18/2022 09:06:36 Monitored Anesthesia Care, Care After Monitored Anesthesia Care, Care After These instructions provide you with information about caring for yourself after your procedure. Your health care provider may also give you more specific instructions. Your treatment has been plannedaccording to current medical practices, but problems sometimes occur. Call your health care provider if you have any problems or questions after your procedure. What can I expect after the procedure? After your procedure, you may: Feel sleepy for several hours. Feel clumsy and have poor balance for several hours. Feel forgetful about what happened after the procedure. Have poor judgment for several hours. Feel nauseous or vomit. Have a sore throat if you had a breathing tube during the procedure. Follow these instructions at home: For at least 24 hours after the procedure: Have a responsible adult stay with you. It is important to have someone help care for you until youare awake and alert. Rest as needed. Do not: ?Participate in activities in which you could fall or become injured. ?Drive. ?Use heavy machinery. ?Drink alcohol. ?Take sleeping pills or medicines that cause drowsiness. ?Make important decisions or sign legal documents. ?Take care of children on your own. Eating and drinking Follow the diet that is recommended by your health care provider. If you vomit, drink water, juice, or soup when you can drink without vomiting. Make sure you have little or no nausea before eating solid foods. General instructions Take nywm-fgh-nwrhowu and prescription medicines only as told by your health care provider. If you have sleep apnea, surgery and certain medicines can increase your risk for breathing problems. Follow instructions from your health care provider about wearing your sleep device: ?Anytime you are sleeping, including during daytime naps. ?While taking prescription pain medicines, sleeping medicines, or medicines that make you drowsy. If you smoke, do not smoke without supervision. Keep all follow-up visits as told by your health care provider. This is important. Contact a health care provider if: You keep feeling nauseous or you keep vomiting. You feel light-headed. You develop a rash. You have a fever. Get help right away if: You have trouble breathing. Summary For several hours after your procedure, you may feel sleepy and have poor judgment. Have a responsible adult stay with you for at least 24 hours or until you are awake and alert. This information is not intended to replace advice given to you by your health care provider. Make sure you discuss any questions you have with your health care provider. Document Released: 11/19/2016 Document Revised: 10/28/2018 Document Reviewed: 11/19/2016 99tests Patient Education 2020 Conjur. 12/18/2022 09:06:25 Esophagogastroduodenoscopy, Care After (38279) Esophagogastroduodenoscopy, Care After Refer to this sheet in the next few weeks. These instructions provide you with information about caring for yourself after your procedure. Your health care provider may also give you more specific instructions. Your treatment has been planned according to current medical practices, but problems sometimes occur. Call your health care provider if you have any problems or questions after your procedure. What can I expect after the procedure? After the procedure, it is common to have: A sore throat. Nausea. Bloating. Dizziness. Fatigue. Follow these instructions at home: Do not eat or drink anything until the numbing medicine (local anesthetic) has worn off and your gag reflex has returned. You will know that the local anesthetic has worn off when you can swallow comfortably. Do not drive for 24 hours if you received a medicine to help you relax (sedative). If your health care provider took a tissue sample for testing during the procedure, make sure to get your test results. This is your responsibility. Ask your health care provider or the department performing the test when your results will be ready. Keep all follow-up visits as told by your health care provider. This is important. Contact a health care provider if: You cannot stop coughing. You are not urinating. You are urinating less than usual. Get help right away if: You have trouble swallowing. You cannot eat or drink. You have throat or chest pain that gets worse. You are dizzy or light-headed. You faint. You have nausea or vomiting. You have chills. You have a fever. You have severe abdominal pain. You have black, tarry, or bloody stools. This information is not intended to replace advice given to you by your health care provider. Make sure you discuss any questions you have with your health care provider. Document Released: 07/16/2013 Document Revised: 01/04/2017 Document Reviewed: 06/22/2016 99tests Interactive Patient Education 2019 Conjur. Follow Up Care 12/14/2022 10:31:16 With:LOUIS PEARCE MD Address: [address] [facility] [address] [place], [place] [phone] When: Unknown Comments:CALL DR GUERIN OFFICE WITH ANY QUESTIOINS OR CONCERNS. GO TO THE EMERGENCY ROOM WITH ANY URGENT MATTERS. [facility] 05-08-2023 Summary of episode note Discharge Instructions Thank you for allowing [facility] to assist you with your healthcare needs. The following is importantdischarge information regarding your hospital visit. Your Care Team REHAN LUCERO DO, DR. What to do next Scheduled Follow-Up Appointments Appointment Type When With Where Contact InformationPC OV 01/25/2023 02:00 PM EDT REHAN LUCERO DO [address] [phone] Follow Up Appointments Follow Up with LOUIS PEARCE MD When Why: CALL DR GUERIN OFFICE WITH ANY QUESTIOINS OR CONCERNS. GO TO THE EMERGENCY ROOM WITH ANY URGENT MATTERS. Where: [address] [facility] [address] [place] [phone] The Following Activity and Diet Have Been Ordered for You Discharge Activity - Ordered -- NO activity restrictions, 12/18/22 8:50:00 EDT Discharge Diet - Ordered -- Follow the post-operative/post-procedure diet instructions provided by your physician's office.,12/18/22 8:50:00 EDT The Following Equipment Has Been Ordered for You Discharge Home Equipment Discharge Wound Care - Ordered -- Follow the post-operative/post-procedure wound care instructions provided by your physician's office., 12/18/22 8:50:00 EDT Someone Will Contact You Regarding These Home Health Referrals No home referrals have been ordered for you. No one will call you. Allergies Darvocet-N 100 Percocet 7.5/325 Ultram Medications Please ask your primary doctor or pharmacist before taking any other medication not listed, including over the counter drugs, herbal medications, vitamins and or supplements as they may interact withyour home medications. What How Much When Why Instructions Last Dose Unchanged aspirin (aspirin 81 mg oral delayed releasetablet) 1 tab(s) by mouth Once a day Unchanged baclofen (baclofen 5 mg oral tablet) 1 tab(s) by mouth Two (2) times a day Duration: 2 Days Unchanged calcium carbonate (Caltrate 600 mg oral tablet) 1 tab(s) by mouth Two (2) times a day Unchanged cholecalciferol (Vitamin D3 5000 intl units oral capsule) 1 cap by mouth Every day Unchanged cyanocobalamin (Vitamin B12 1000 mcg oral tablet) 1 tab(s) by mouth Once a day Unchanged denosumab (Prolia 60 mg/ mL subcutaneous solution) 1 Milliliter Subcutaneous Every 6 months Osteoporosis Unchanged DME (DME MISCellaneous) See instructions Peripheral edema bilateral knee high compression hose 20-30 medium, Dx: R60.9 Unchanged furosemide (furosemide 20 mg oral tablet) 1 tab(s) by mouth Once a day Unchanged gabapentin (gabapentin 100 mg oral capsule) 1 cap Four (4) times a day Dr Cuenca Unchanged isosorbide dinitrate IR (isosorbide dinitrate 5 mg oral tablet) Unchanged levothyroxine (levothyroxine 50 mcg (0.05 mg) oral tablet) See instructions TAKE 1 TABLET BY MOUTH EVERY DAY Unchanged lidocaine topical (lidocaine 5% topical patch) 2 patch(es) Transdermal Every day Chronic back pain remove patches after 12 hours Unchanged loperamide (loperamide 2 mg oral capsule) 1 to 2 cap(s) by mouth Every 6 hours as needed for loose stools Duration: 30 Days not to exceed 8 capsules, or 16 mg, in 24 hours Unchanged metoprolol (metoprolol tartrate 25 mg oral tablet) 1 tab(s) by mouth Two (2) times a day Unchanged multivitamin (Super B Complex oral tablet) 1 tab(s) by mouth Every day Unchanged nitroGLYcerin (Nitrostat 0.4 mg sublingual tablet) 1 tab(s) under the tongue Every 5 minutes as needed for as needed for chest pain Unchanged pantoprazole (pantoprazole 40 mg oral enteric coated tablet) Unchanged sertraline (sertraline 50 mg oral tablet) 2 tab(s) by mouth Once a day Unchanged spironolactone (spironolactone 25 mg oral tablet) 1 tab(s) by mouth Once a day Please take this list to your next doctor s visit. Bring all medications you take, including over the counter medications, herbals and other supplements with you to your doctor s visit. Patients and families are reminded to discard old lists and to update any records with all medication providers or retail pharmacies. Education Materials Monitored Anesthesia Care, Care After These instructions provide you with information about caring for yourself after your procedure. Your health care provider may also give you more specific instructions. Your treatment has been plannedaccording to current medical practices, but problems sometimes occur. Call your health care provider if you have any problems or questions after your procedure. What can I expect after the procedure? After your procedure, you may: Feel sleepy for several hours. Feel clumsy and have poor balance for several hours. Feel forgetful about what happened after the procedure. Have poor judgment for several hours. Feel nauseous or vomit. Have a sore throat if you had a breathing tube during the procedure. Follow these instructions at home: For at least 24 hours after the procedure: Have a responsible adult stay with you. It is important to have someone help care for you until youare awake and alert. Rest as needed. Do not: ? Participate in activities in which you could fall or become injured. ? Drive. ? Use heavy machinery. ? Drink alcohol. ? Take sleeping pills or medicines that cause drowsiness. ? Make important decisions or sign legal documents. ? Take care of children on your own. Eating and drinking Follow the diet that is recommended by your health care provider. If you vomit, drink water, juice, or soup when you can drink without vomiting. Make sure you have little or no nausea before eating solid foods. General instructions Take jtev-app-bgejipp and prescription medicines only as told by your health care provider. If you have sleep apnea, surgery and certain medicines can increase your risk for breathing problems. Follow instructions from your health care provider about wearing your sleep device: ? Anytime you are sleeping, including during daytime naps. ? While taking prescription pain medicines, sleeping medicines, or medicines that make you drowsy. If you smoke, do not smoke without supervision. Keep all follow-up visits as told by your health care provider. This is important. Contact a health care provider if: You keep feeling nauseous or you keep vomiting. You feel light-headed. You develop a rash. You have a fever. Get help right away if: You have trouble breathing. Summary For several hours after your procedure, you may feel sleepy and have poor judgment. Have a responsible adult stay with you for at least 24 hours or until you are awake and alert. This information is not intended to replace advice given to you by your health care provider. Make sure you discuss any questions you have with your health care provider. Document Released: 11/19/2016 Document Revised: 10/28/2018 Document Reviewed: 11/19/2016 99tests Patient Education 2020 Conjur. Esophagogastroduodenoscopy, Care After Refer to this sheet in the next few weeks. These instructions provide you with information about caring for yourself after your procedure. Your health care provider may also give you more specific instructions. Your treatment has been planned according to current medical practices, but problems sometimes occur. Call your health care provider if you have any problems or questions after your procedure. What can I expect after the procedure? After the procedure, it is common to have: A sore throat. Nausea. Bloating. Dizziness. Fatigue. Follow these instructions at home: Do not eat or drink anything until the numbing medicine (local anesthetic) has worn off and your gag reflex has returned. You will know that the local anesthetic has worn off when you can swallow comfortably. Do not drive for 24 hours if you received a medicine to help you relax (sedative). If your health care provider took a tissue sample for testing during the procedure, make sure to get your test results. This is your responsibility. Ask your health care provider or the department performing the test when your results will be ready. Keep all follow-up visits as told by your health care provider. This is important. Contact a health care provider if: You cannot stop coughing. You are not urinating. You are urinating less than usual. Get help right away if: You have trouble swallowing. You cannot eat or drink. You have throat or chest pain that gets worse. You are dizzy or light-headed. You faint. You have nausea or vomiting. You have chills. You have a fever. You have severe abdominal pain. You have black, tarry, or bloody stools. This information is not intended to replace advice given to you by your health care provider. Make sure you discuss any questions you have with your health care provider. Document Released: 07/16/2013 Document Revised: 01/04/2017 Document Reviewed: 06/22/2016 99tests Interactive Patient Education 2019 99tests Inc. Additional Information VACCINATE! IT SAVES LIVES! Members of the community who have not yet received the COVID-19 vaccine and would like to receive it can visit one of [facility] vaccine clinics. There are many vaccine clinic locations within the [facility]. For locations and available times, please visit [email or web address].gov/. It is important to note that some COVID mobile vaccine clinics are held outdoors and may be canceled in rainy or stormy conditions. To learn more about pediatric vaccinations (ages 5-11), we invite you to visit the [facility] webpage. [email or web address]/[email or web address] [email or web address] learn more about the COVID-19 vaccine, we invite you to visit the CDC website for a list of frequently asked questions. https://www.cdc.gov/coronavirus/2019-ncov/vaccines/faq.html [email or web address] Patient Portal Access Instructions: Stay connected with your healthcare team and access your personal medical information anytime with the [email or web address] Patient Portal.If you would like a full copy of your medical records, please contact the [facility] Medical Records Department, Sunday through Sunday between 8a.m. and 4:30p.m. Please follow the directions below to access the portal: 1.Access the email account you provided upon registration to the universal health services.2.Look for an invitation email from [facility].3.Open the email and access the invitation link: Accept Invitation to [email or web address].Fill in the required [place] to create your account. Sign into [email or web address] with your username and password that you created in the above steps to stay up to date. You can then view a summary of results, a summary of your visits, and the ability to download your summaries to your computer or send the information securely to a physician. Remember that your healthcare information is confidential, so carefully consider who you will allow to register on the [employer] Patient Portal for access to your information. You can also access the [employer] Patient Portal on the [employer] cherelle. Simply click on Health Records under [employer] and then click on the [employer] logo. HOW TO SAFELY DISPOSE OF PRESCRIPTION MEDICATIONS Please use one of the following methods to safely dispose of your unused medications. 1.Use a drug disposal kit: the drug disposal pouch allows you to safely discard your old and unuseddrugs. Ask your nurse to give you one when you are discharged.2.Visit a local take-back location: Many local pharmacies and police departments have programs that collect old and unwanted prescriptiondrugs. Call your local pharmacy or go to http://[employer]6A2Tn8l to find one close to you.3.Make use of household items: Use cat litter or old coffee grounds to dispose medications if other options arenot available. Mix your drugs with these household products, seal them in an airtight container andthrow it into the garbage. Call [facility]: [phone] to be sure your drugs can be disposed of in this way. Some medicines may require a different approach.4.Never flush your medications down the toilet. IF YOU HAVE BEEN PRESCRIBED AN OPIOID FOR PAIN If you have been prescribed an opioid (such as hydrocodone, oxycodone or morphine), it is critical to understand the possible side effects and risks of opioid pain medications. Even when taken as directed, opioids can have several side effects including: Tolerance, meaning you might need to take more of a medication for the same pain relief. Nausea, vomiting and/or constipation. Sleepiness, dizziness, dry mouth, confusion, depression or itching. Physical dependence, meaning you have withdrawal symptoms when a medication is stopped, can develop within a few days. KNOW YOUR RESPONSIBILITIES It is important to know exactly how much and how often to take the opioid pain medications you are prescribed. Never take opioids in higher amounts or more often than prescribed. Do not combine opioids with alcohol or other drugs that cause drowsiness, such as benzodiazepines, also known as benzos, including diazepam and alprazolam, muscle relaxants or sleep aids. Never sell or share prescription opioids. This is illegal. Store opioids in a secure place and out of reach of others (including children, family, friends and visitors). The last page of this document has been signed and retained as a CHART COPY. Signatures Patient Education Materials Monitored Anesthesia Care, Care After Esophagogastroduodenoscopy, Care After (61858) Medication Leaflets My discharge plan and instructions have been reviewed and explained to me and I,RADHA MAYERS understand my current condition and have read and understand these discharge instructions. I have received a written copy of the plan/instructions. If I have questions, I am aware that I should contact my doctor. 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 Signature: Date/Time: Relationship to Patient: Witness Name/Signature: Date/Time: [facility]05-08-2023 Anesthesiology Consult note Patient: RADHA MAYERS Age: 87 years Sex: Female : 1935 Associated Diagnoses: None Author: LEONARDO RIGGINS APRN-WINDOWS TECHNICAL SPECIALIST Assessment Postanesthesia assessment Vitals: Vital signs from flowsheet : Vital Signs 12/18/2022 8:45 EDT Heart Rate Monitored 76 bpm bpm Respiratory Rate - Anes 17 br/min br/min Systolic Blood Pressure Non-Invasive 153 mmHg mmHg Diastolic Blood Pressure Non-Invasive 79 mmHg mmHg 12/18/2022 8:40 EDT Heart Rate Monitored 73 bpm bpm Respiratory Rate - Anes 17 br/min br/min Systolic Blood Pressure Non-Invasive 142 mmHg mmHg Diastolic Blood Pressure Non-Invasive 81 mmHg mmHg 12/18/2022 8:35 EDT Heart Rate Monitored 78 bpm bpm Respiratory Rate - Anes 19 br/min br/min Systolic Blood Pressure Non-Invasive 166 mmHg mmHg Diastolic Blood Pressure Non-Invasive 84 mmHg mmHg 12/18/2022 8:30 EDT Heart Rate Monitored 69 bpm bpm Respiratory Rate - Anes 17 br/min br/min Systolic Blood Pressure Non-Invasive 165 mmHg mmHg Diastolic Blood Pressure Non-Invasive 71 mmHg mmHg 12/18/2022 8:27 EDT Systolic Blood Pressure Non-Invasive 181 mmHg mmHg Diastolic Blood Pressure Non-Invasive 97 mmHg mmHg 12/18/2022 8:25 EDT Heart Rate Monitored 68 bpm bpm Respiratory Rate - Anes 6 br/min br/min 12/18/2022 8:20 EDT Heart Rate Monitored 64 bpm bpm Respiratory Rate - Anes 18 br/min br/min 12/18/2022 7:32 EDT Temperature Temporal Artery 36.9 DegC Peripheral Pulse Rate 63 bpm Respiratory Rate 15 br/min Systolic Blood Pressure Non-Invasive 170 mmHg HI Diastolic Blood Pressure Non-Invasive 82 mmHg , Measurements from flowsheet . Mental status: alert & oriented x 4. Respiratory function: respirations are non-labored. Respiratory support: none. CV function: Normal rate. Cardiovascular support: none. Pain. Nausea status: see nursing documentation of medications. Postoperative hydration status: within normal limits. Digitally Signed by LEONARDO RIGGINS on 12/18/2022 08:51 AM [facility]05-08-2023 Note [place] ADMISSION HISTORY AND PHYSICIAL CHIEF COMPLAINT: HISTORY OF PRESENT ILLNESS: REVIEW OF SYSTEMS: ACTIVE PROBLEMS: (33) Abnormal x-ray of forearm (128267418) Anxiety (26386362) CAD (coronary artery disease) (80986501) Carpal tunnel syndrome, left (11265681) Chronic back pain (136377489) Chronic diastolic heart failure (3145449200) Chronic kidney disease (5295791650) Chronic nausea (7434582585) Chronic systolic heart failure (4104506060) Depression (500793015) Dysphagia (28960503) Eosinophilic esophagitis (343675138) Fibromyalgia (00419158) GERD (gastroesophageal reflux disease) (3115645232) Hiatal hernia (173886452) History of compression fracture of vertebral column (3865484042) HTN (hypertension) (3882922152) Hx of fall in Mar with R pelvic hairline fx, R wrist fx and R clavicle fx with surgery Hyperlipidemia (928895549) Hypothyroidism (25540724) Irritable bowel syndrome with diarrhea (423456883) Large hiatal hernia (212597221) Left foot pain (584007795) Left hip pain (19971640) Lightheadedness (8226471718) Neck pain (981515833) Osteoporosis (836405801) Peripheral edema (448414698) Personal history of COVID-19 (1485630102) RA (rheumatoid arthritis) (226142594) Restless leg syndrome (70900395) Screening for colon cancer (712681049) Syncope (030344942) MEDICATIONS: Active Inpt Meds: None Active PRN Meds: None One Time Meds: None Active IV Meds: Lactated Ringers Infusion 1,000 mL (LR 1,000 mL) Start: 12/18/22 7:18:00 EDT, Rate: 50 mL/hr, 12/18/22 7:18:00 EDT ALLERGIES: (3) Darvocet-N 100 Percocet 7.5/325 Ultram FAMILY HISTORY: SOCIAL HISTORY: PHYSICAL EXAM: VITALS: TympmiSlgcMJNriqhNNPeJ6TMF4NcqgZz(kg) 12/18 07:3236.9--741423EB11/08 97.7 24 Hr Tmax: 36.9 at 12/18 07:32 36 Hr Tmax: 36.9 at 12/18 07:32 Vital Signs are the last 5 in the past 48 hours. Weights display the last 5 within 7 days. Initial Wt: 12/18 97.7 kg 215 lb Current Wt: 12/18 97.7 kg 215 lb GENERAL: HEENT: CARDIOVASCULAR: RESPIRATORY: ABDOMEN: EXREMETIES: NEUROLOGICAL: PSYCHIATRIC: LABS: No 36hr Lab Data DIAGNOSTICS: IMPRESSION: PLAN: History and Physical Update I have examined the patient; reviewed the H&P and there are no changes to the H&P unless noted below. Digitally Signed by LOUIS PEARCE MD on 12/18/2022 08:24 AM [facility]05-08-2023 Anesthesiology Consult note Patient: RADHA MAYERS Age: 87 years Sex: Female : 1935 Associated Diagnoses: None Author: LEONARDO RIGGINS Preoperative Information Time of last food or liquid consumption: 12/18/2022 00:00:00 Anesthesia history Patient's history: negative. Family's history: negative. Health Status Allergies: Allergic Reactions (Selected) Severity Not Documented Darvocet-N 100- No reactions were documented. Percocet 7.5/325- No reactions were documented. Ultram- No reactions were documented., Allergies (3) ActiveReaction Darvocet-N 100None Documented Percocet 7.5/325None Documented UltramNone Documented Current medications: (Selected) Inpatient Medications Ordered LR 1,000 mL: 50 mL/hr, Intravenous Prescriptions Prescribed DME MISCellaneous: See Instructions, bilateral knee high compression hose 20-30 medium, Dx: R60.9, 1 EA, 0 Refill(s) Prolia 60 mg/mL subcutaneous solution: 60 mg, 1 mL, Subcutaneous, q6mo, 1 mL, 0 Refill(s) baclofen 5 mg oral tablet: 5 mg, 1 tab(s), Oral, BID, for 2 day(s), 4 tab(s), 0 Refill(s) furosemide 20 mg oral tablet: 20 mg, 1 tab(s), Oral, qDay, 90 tab(s), 3 Refill(s) levothyroxine 50 mcg (0.05 mg) oral tablet: See Instructions, TAKE 1 TABLET BY MOUTH EVERY DAY, 90 tab(s), 3 Refill(s) lidocaine 5% topical patch: 2 patch(es), Transdermal, Daily, remove patches after 12 hours, 60 patch(es), 5 Refill(s) loperamide 2 mg oral capsule: 1 to 2 cap(s), Oral, q6hr, for 30 day(s), not to exceed 8 capsules, or 16 mg, in 24 hours, PRN: loose stools, 120 cap(s), 3 Refill(s) metoprolol tartrate 25 mg oral tablet: 25 mg, 1 tab(s), Oral, BID, 180 tab(s), 3 Refill(s) sertraline 50 mg oral tablet: 100 mg, 2 tab(s), Oral, qDay, 90 tab(s), 3 Refill(s) spironolactone 25 mg oral tablet: 25 mg, 1 tab(s), Oral, qDay, 90 tab(s), 3 Refill(s) Documented Medications Documented Caltrate 600 mg oral tablet: 600 mg, 1 tab(s), Oral, BID, 60 tab(s), 0 Refill(s) Nitrostat 0.4 mg sublingual tablet: 0.4 mg, 1 tab(s), Sublingual, q5min, PRN: as needed for chest pain, 100 tab(s), 0 Refill(s) Super B Complex oral tablet: 1 tab(s), Oral, Daily, 30 tab(s), 0 Refill(s) Vitamin B12 1000 mcg oral tablet: 1,000 mcg, 1 tab(s), Oral, qDay, 30 tab(s), 0 Refill(s) Vitamin D3 5000 intl units oral capsule: 5,000 International_Unit, 1 cap(s), Oral, Daily, 0 Refill(s) aspirin 81 mg oral delayed release tablet: 81 mg, 1 tab(s), Oral, qDay, 0 Refill(s) gabapentin 100 mg oral capsule: 100 mg, 1 cap(s), QID, Dr Cuenca, 0 Refill(s) isosorbide dinitrate 5 mg oral tablet: 0 Refill(s) pantoprazole 40 mg oral enteric coated tablet: 0 Refill(s), Medications (1) Active Scheduled: (0) Continuous: (1) Lactated Ringers 1,000 mL 1,000 mL, Intravenous, 50 mL/hr PRN: (0) Problem list: Medical Anxiety / SNOMED CT 11758291 / Confirmed Carpal tunnel syndrome, left / SNOMED CT 00928098 / Confirmed Chronic diastolic heart failure / SNOMED CT 4818091082 / Confirmed Chronic kidney disease / SNOMED CT 6509081557 / Confirmed Chronic back pain / SNOMED CT 052909849 / Confirmed Chronic systolic heart failure / SNOMED CT 2145976907 / Confirmed CAD (coronary artery disease) / SNOMED CT 09093734 / Confirmed Dysphagia / SNOMED CT 33538725 / Confirmed Eosinophilic esophagitis / SNOMED CT 928658931 / Confirmed Fibromyalgia / SNOMED CT 76263241 / Confirmed Left foot pain / SNOMED CT 154806878 / Confirmed GERD (gastroesophageal reflux disease) / SNOMED CT 0756415731 / Confirmed History of compression fracture of vertebral column / SNOMED CT 0422989909 / Confirmed Large hiatal hernia / SNOMED CT 295028378 / Confirmed Hiatal hernia / SNOMED CT 695351848 / Confirmed Left hip pain / SNOMED CT 05866107 / Confirmed Personal history of COVID-19 / SNOMED CT 7574527530 / Confirmed Hyperlipidemia / SNOMED CT 922062399 / Confirmed HTN (hypertension) / SNOMED CT 7760640352 / Confirmed Hypothyroidism / SNOMED CT 06587453 / Confirmed Irritable bowel syndrome with diarrhea / SNOMED CT 036719025 / Confirmed Lightheadedness / SNOMED CT 6604174619 / Confirmed Chronic nausea / SNOMED CT 5654538864 / Confirmed Neck pain / SNOMED CT 915801552 / Confirmed Osteoporosis / SNOMED CT 096962049 / Confirmed Screening for colon cancer / SNOMED CT 798519955 / Confirmed Peripheral edema / SNOMED CT 238766901 / Confirmed Abnormal x-ray of forearm / SNOMED CT 691203544 / Confirmed Depression / SNOMED CT 745733507 / Confirmed Restless leg syndrome / SNOMED CT 73410429 / Confirmed RA (rheumatoid arthritis) / SNOMED CT 789337436 / Confirmed Syncope / SNOMED CT 437297106 / Confirmed, Active Problems (33) Abnormal x-ray of forearm Anxiety CAD (coronary artery disease) Carpal tunnel syndrome, left Chronic back pain Chronic diastolic heart failure Chronic kidney disease Chronic nausea Chronic systolic heart failure Depression Dysphagia Eosinophilic esophagitis Fibromyalgia GERD (gastroesophageal reflux disease) Hiatal hernia History of compression fracture of vertebral column HTN (hypertension) Hx of fall in Mar with R pelvic hairline fx, R wrist fx and R clavicle fx with surgery Hyperlipidemia Hypothyroidism Irritable bowel syndrome with diarrhea Large hiatal hernia Left foot pain Left hip pain Lightheadedness Neck pain Osteoporosis Peripheral edema Personal history of COVID-19 RA (rheumatoid arthritis) Restless leg syndrome Screening for colon cancer Syncope Histories Past Medical History: Active Syncope (266448051) Chronic back pain (583456265) Resolved Cardiac catheterization, left heart (412636065): Onset on 02/07/2013 at 77 years. Resolved. SOB (shortness of breath) (011433529): Resolved. DVT (deep venous thrombosis) (127075999): Resolved. Pleural effusion (09549874): Resolved. Arm laceration (333918242): Resolved. COVID-19 virus infection (9008067931): Resolved. Cellulitis of left lower extremity (0919041211): Resolved. Fall at home (85349385): Resolved. Family History: Hypertension Mother Father Heart disease Mother Father Blood disorder Father Stroke Mother Diabetes Mother Procedure history: History of left hip replacement ([id number]) on 02/07/2018 at 82 Years. Cholecystectomy (15360044). Cardiac catheterization (37474778). Angioplasty of artery (584511923). Knee replacement (719313954). Appendectomy (897702976). Hysterectomy (652867981). Cataract extraction (96753585). Tonsillectomy (117110183). Social History Social & Psychosocial Habits Alcohol 03/23/2017Risk Assessment: Denies Alcohol Use 04/09/2019 Use: Never Employment/School 05/19/2019 Status: Retired Substance Abuse 03/23/2017Risk Assessment: Denies Substance Abuse 04/09/2019 Use: Never Tobacco 08/26/2021 Tobacco Use: Never (less than 100 in l Exposure to Tobacco Smoke Lives in non-smoking home Exercise Comment: none - 05/19/2019 11:51 - Dory Ziegler LPN Home/Environment 09/28/2021 Domestic Concerns None Living situation: Home/Independent Nutrition/Health 02/01/2021 Type of diet: Regular Appetite Good Caffeine intake amount: none . Physical Examination Vital Signs 12/18/2022 7:32 EDT Temperature Temporal Artery 36.9 DegC Peripheral Pulse Rate 63 bpm Respiratory Rate 15 br/min Systolic Blood Pressure Non-Invasive 170 mmHg HI Diastolic Blood Pressure Non-Invasive 82 mmHg Vital Signs(last 24 hrs) Last Charted Resp Rate 15 br/min (DECEMBER 18 07:32) SBPH 170mmHg (DECEMBER 18 07:32) DBP82 mmHg (DECEMBER 18 07:32) Measurements from flowsheet : Measurements 12/18/2022 7:33 EDT Height 149.9 cm Admission Weight 97.7 kg Weight Method Stated [place] Body Weight 43.24 kg Admission Body Mass Index 43.48 m2 Pain assessment: Pain Assessment 12/18/2022 7:33 EDT Primary Pain Location Neck Primary Pain Intensity 8 Pain Scale Type 0-10 Pain scale . General: Alert and oriented. Airway: Normal temporomandibular joint mobility, Normal mouth. Mallampati classification: III (soft palate, base of uvula visible). Dentition Evaluation: Dentures, lower, Dentures, upper. Respiratory: Respirations are non-labored. Cardiovascular: Normal rate. Neurologic: Alert, Oriented. Review / Management Results review: No qualifying data available , Lab results 12/18/2022 8:17 EDT SN - CAt - Case Attendee SN - CAt - Case Attendee SN - CAt - Case Attendee SN - CAt - Case Attendee SN - CAt - Case Attendee SN - CAt - Case Attendee SN - CAt - Case Attendee SN - CAt - Case Attendee SN - CAt - Role Performed Primary Surgeon SN - CAt - Role Performed Pitch Flaker 1 SN - CAt - Role Performed WINDOWS TECHNICAL SPECIALIST SN - CAt - Role Performed [employer] 12/18/2022 7:41 EDT Lactated Ringers Injection Begin Bag 1,000 mL mL 12/18/2022 7:33 EDT Designated Person #1 We May Share PHI [phone] Designated Person #1 Relationship Daughter Designated Person #2 We May Share PHI Dave [phone] Designated Person #2 Relationship Daughter Additional Designated Person Share PHI Just to two primary Privacy Restrictions Requested None Height 149.9 cm Admission Weight 97.7 kg Weight Method Stated [place] Body Weight 43.24 kg Admission Body Mass Index 43.48 m2 Primary Pain Location Neck Primary Pain Intensity 8 Pain Scale Type 0-10 Pain scale Abdomen Description Non-distended, Soft Urinary Elimination Voiding, no difficulties Status N/A Skin Temperature Warm Skin Description Fragile Skin Moisture General Dry IV Present Present Hand Right 12/18/2022 22 gauge Peripheral IV Activity: Insert new site Peripheral IV Site Condition: No complications Peripheral IV Number of Attempts: 1 Neurological Symptoms Patient denies Characteristics of Speech Clear Level of Consciousness Alert Strength All Extremities Moderate Affect/Behavior Appropriate Orientation Oriented x 4 Sensory Deficits Hearing deficit, left ear, Hearing deficit, right ear Sleep Apnea Snore No Sleep Apnea Tired No Sleep Apnea Obstruction No Sleep Apnea Pressure Yes Sleep Apnea BMI No Sleep Apnea Age Yes Sleep Apnea Neck No Sleep Apnea Gender No Sleep Apnea Score 2 High Risk for Sleep Apnea No Diagnosed With Sleep Apnea No Advanced Directives Yes Advance Directive Location Family instructed to bring in copy Infectious Disease Symptoms Patient states no symptoms Infectious Disease Recent Exposure No Alcohol and Drug Use No Employee of Institutional Living No Health Care Employee No History of Exposure to TB No History of Positive Chest X-Ray for TB No History of Positive TB Skin Test No Homeless No Known Immunosuppression No Recent Immigrant No Resident of Institutional Living No Bloody Sputum No Fatigue No Fever No Loss of Appetite No Night Sweats No Persistent Cough > 3 Weeks No Weight Loss No Allergies Yes Consent Form Signed Yes Patient Dressed In Hospital gown Pre-op Preparation Dentures, full removed History & Physical Update On Chart Yes History & Physical On Chart Yes Obstructive Sleep Apnea Assess Completed Yes Orientation Assessment Oriented x 4 Safety Brochure Information Reviewed Unable to complete [employer] Gold Video Viewed No Individuals Taught Patient, Daughter Learning Readiness Willing to learn Barriers to Learning Hearing deficit Teaching Method Explanation Teaching Evaluation No further teaching needed Preferred Written Language Andorran Preferred Spoken Language Andorran Pre Procedure/Surgery Education Appropriate expectations Information Given by Patient Patient's Current Physicians Patient's Current Physicians Discharge To, Anticipated Home with family care Activity Status ADL Ambulating in [place], Ambulating in room, Awake Assistive Device None NPO Status Maintained Standard Safety ID band on, Allergy Band on, Call device within reach, Bed in low position, Wheels locked, Visitor at bedside Prev Test Positive/Diagnosis w/COVID-19 Yes Previous COVID-19 Positive Date Previous COVID-19 Positive Date Current Quarantine/Isolated any Illness No Any Contact with Sick Animals/Birds No Traveled Anywhere in Last 30 Days No Allergy Band on and Verified Yes Patient ID Band on and Verified Yes Implants Verified Yes Pacemaker/AICD Verified Yes Last Fluid Intake 12/17/2022 22:00 Last Food Intake 12/17/2022 19:00 Last Void 12/18/2022 7:45 Lost Weight Unintentionally Recently No Eat Poorly Due to Decreased Appetite No Total MST Score 0 N/A Personal Devices, Patient Valuables Dentures, lower, Dentures, upper, Glasses Admission Note-Nursing Same Day Patient History 12/18/2022 7:32 EDT Temperature Temporal Artery 36.9 DegC Peripheral Pulse Rate 63 bpm Respiratory Rate 15 br/min Systolic Blood Pressure Non-Invasive 170 mmHg HI Diastolic Blood Pressure Non-Invasive 82 mmHg Heart Sounds ICU S1S2 Heart Rhythm Regular Oxygen Therapy Room air Oxygen Saturation 95 % . Assessment and Plan [place] [employer] Anesthesiologists (ASA) physical status classification: Class III. Anesthetic Preoperative Plan Anesthetic technique: MAC. Informed consent: signed by patient. Digitally Signed by LEONARDO RIGGINS on 12/18/2022 08:22 AM [facility]11-13-2022 Hospital Discharge instructions Patient Education 06/25/2022 07:51:21 R.I.C.E. RICE RICE stands for rest, ice, compression, and elevation. Doing these things helps limit pain and swelling after an injury. RICE also helps injuries heal faster. Use RICE for sprains, strains, and severe bruises or bumps. Follow the tips on this handout and begin RICE as soon as possible after an injury. Rest Pain is your body s way of telling you to rest an injured area. Whether you have hurt an elbow, hand, foot, or knee, limiting its use will prevent further injury and help you heal. Ice Applying ice right after an injury helps prevent swelling and reduce pain. Don t place ice directlyon your skin. Wrap a cold pack or bag of ice in a thin cloth. Place it over the injured area. Ice for 10 minutes every 3 hours. Don t ice for more than 20 minutes at a time. Compression Putting pressure (compression) on an injury helps prevent swelling and provides support. Wrap the injured area firmly with an elastic bandage. If your hand or foot tingles, becomes discolored, or feels cold to the touch, the bandage may be too tight. Rewrap it more loosely. If your bandage becomes too loose, rewrap it. Do not wear an elastic bandage overnight. Elevation Keeping an injury elevated helps reduce swelling, pain, and throbbing. Elevation is most effective when the injury is kept elevated higher than the heart. Call your healthcare provider if you notice any of the following: Fingers or toes feel numb, are cold to the touch, or change color. Skin looks shiny or tight. Pain, swelling, or bruising worsens and is not improved with elevation. [id number] [employer]. [address] [place] [address], [place] [address]. All rights reserved. This information is not intended as a substitute for professional medical care. Always follow yourhealthcare professional's instructions. Follow Up Care 06/25/2022 05:59:25 With:REHAN LUCERO DO Address: [address] [place] [phone] When:2-4 days [facility] 11-13-2022 Note Discharge Instructions Thank you for allowing [facility] to assist you with your healthcare needs. The following is importantdischarge information regarding your hospital visit. Diagnosis from Today's Visit Left Hip Pain What to Do Next Instructions from Your Care Team No qualifying data available. Post Acute Orders No qualifying data available. You Need to Schedule the Following Appointments Follow Up with REHAN LUCERO DO When Within 2-4 days Where: [address] [place] [phone] Allergies Darvocet-N 100 Percocet 7.5/325 Ultram Medications Please ask your primary doctor or pharmacist before taking any other medication not listed, including over the counter drugs, herbal medications, vitamins and or supplements as they may interact withyour home medications. What How Much When Why Instructions Last Dose New baclofen (baclofen 5 mg oral tablet) 1 tab(s) by mouth Two (2) times a day Duration: 2 Days Printed Prescription Unchanged aspirin (aspirin 81 mg oral delayed release tablet) 1 tab(s) by mouth Once a day Unchanged calcium carbonate (Caltrate 600 mg oral tablet) 1 tab(s) by mouth Two (2) times a day Unchanged cholecalciferol (Vitamin D3 5000 intl units oral capsule) 1 cap by mouth Every day Unchanged cyanocobalamin (Vitamin B12 1000 mcg oral tablet) 1 tab(s) by mouth Once a day Unchanged denosumab (Prolia 60 mg/ mL subcutaneous solution) 1 Milliliter Subcutaneous Every 6 months Osteoporosis Unchanged DME (DME MISCellaneous) See instructions Peripheral edema bilateral knee high compression hose 20-30 medium, Dx: R60.9 Unchanged furosemide (furosemide 20 mg oral tablet) 1 tab(s) by mouth Once a day Unchanged gabapentin (gabapentin 100 mg oral capsule) 1 cap Four (4) times a day Dr Cuenca Unchanged isosorbide dinitrate IR (isosorbide dinitrate 5 mg oral tablet) Unchanged levothyroxine (levothyroxine 50 mcg (0.05 mg) oral tablet) See instructions TAKE 1 TABLET BY MOUTH EVERY DAY Unchanged lidocaine topical (lidocaine 5% topical patch) 2 patch(es) Transdermal Every day Chronic back pain remove patches after 12 hours Unchanged metoprolol (metoprolol tartrate 25 mg oral tablet) 1 tab(s) by mouth Two (2) times a day Unchanged multivitamin (Super B Complex oral tablet) 1 tab(s) by mouth Every day Unchanged nitroGLYcerin (Nitrostat 0.4 mg sublingual tablet) 1 tab(s) under the tongue Every 5 minutes as needed for as needed for chest pain Unchanged pantoprazole (pantoprazole 40 mg oral enteric coated tablet) Unchanged pramipexole (pramipexole 0.5 mg oral tablet) 1 tab(s) by mouth Daily at bedtime as needed for restless legs Restless leg syndrome Unchanged sertraline (sertraline 50 mg oral tablet) 1 tab(s) by mouth Once a day Unchanged spironolactone (spironolactone 25 mg oral tablet) 1 tab(s) by mouth Once a day Please take this list to your next doctor s visit. Bring all medications you take, including over the counter medications, herbals and other supplements with you to your doctor s visit. Patients and families are reminded to discard old lists and to update any records with all medication providers or retail pharmacies. Education Materials RICE RICE stands for rest, ice, compression, and elevation. Doing these things helps limit pain and swelling after an injury. RICE also helps injuries heal faster. Use RICE for sprains, strains, and severe bruises or bumps. Follow the tips on this handout and begin RICE as soon as possible after an injury. Rest Pain is your body s way of telling you to rest an injured area. Whether you have hurt an elbow, hand, foot, or knee, limiting its use will prevent further injury and help you heal. Ice Applying ice right after an injury helps prevent swelling and reduce pain. Don t place ice directlyon your skin. Wrap a cold pack or bag of ice in a thin cloth. Place it over the injured area. Ice for 10 minutes every 3 hours. Don t ice for more than 20 minutes at a time. Compression Putting pressure (compression) on an injury helps prevent swelling and provides support. Wrap the injured area firmly with an elastic bandage. If your hand or foot tingles, becomes discolored, or feels cold to the touch, the bandage may be too tight. Rewrap it more loosely. If your bandage becomes too loose, rewrap it. Do not wear an elastic bandage overnight. Elevation Keeping an injury elevated helps reduce swelling, pain, and throbbing. Elevation is most effective when the injury is kept elevated higher than the heart. Call your healthcare provider if you notice any of the following: Fingers or toes feel numb, are cold to the touch, or change color. Skin looks shiny or tight. Pain, swelling, or bruising worsens and is not improved with elevation. [id number] [employer]. [address] [place] [address], [place] [id number]. All rights reserved. This information is not intended as a substitute for professional medical care. Always follow yourhealthcare professional's instructions. Additional Information VACCINATE! IT SAVES LIVES! Members of the community who have not yet received the COVID-19 vaccine and would like to receive it can visit one of [facility] vaccine clinics. There are many vaccine clinic locations within the [facility]. For locations and available times, please visit [email or web address]. It is important to note that some COVID mobile vaccine clinics are held outdoors and may be canceled in rainy orstormy conditions. To learn more about pediatric vaccinations (ages 5-11), we invite you to visit the [facility] webpage. [email or web address] learn more about the COVID-19 vaccine, we invite you to visit the [facility] website for a list of frequently asked questions. [email or web address] [facility] Patient Portal Access Instructions: Stay connected with your healthcare team and access your personal medical information anytime with the [facility] Patient Portal. If you would like a full copy of your medical records please contact the [facility] Medical Records Department Sunday through Sunday between 8a.m. and 4:30p.m. Please follow the directions below to access the portal: 1.Access the email account you provided upon registration to the universal health services.2.Look for an invitation email from [facility].3.Open the email and access the invitation link: Accept Invitation to [email or web address].Fill in the required [place] to create your account. Sign into [email or web address] with your username and password that you created in the above steps to stay up to date. You can then view a summary of results, a summary of your visits, and the ability to download your summaries to your computer or send the information securely to a physician. Remember that your healthcare information is confidential, so carefully consider who you will allow to register on the [facility] Patient Portal for access to your information. You can also access the [email or web address] Patient Portal on the [employer]. Simply click on Health Records under [employer] and then click on the [employer] logo. HOW TO SAFELY DISPOSE OF PRESCRIPTION MEDICATIONS Please use one of the following methods to safely dispose of your unused medications. 1.Use a drug disposal kit: the drug disposal pouch allows you to safely discard your old and unuseddrugs. Ask your nurse to give you one when you are discharged.2.Visit a local take-back location: Many local pharmacies and police departments have programs that collect old and unwanted prescriptiondrugs. Call your local pharmacy or go to http://[employer]0G5Mj5t to find one close to you.3.Make use of household items: Use cat litter or old coffee grounds to dispose medications if other options arenot available. Mix your drugs with these household products, seal them in an airtight container andthrow it into the garbage. Call [facility]: [phone] to be sure your drugs can be disposed of in this way. Some medicines may require a different approach.4.Never flush your medications down the toilet. IF YOU HAVE BEEN PRESCRIBED AN OPIOIDS FOR PAIN If you have been prescribed an opioid (such as hydrocodone, oxycodone or morphine), it is critical to understand the possible side effects and risks of opioid pain medications. Even when taken as directed, opioids can have several side effects including: Tolerance, meaning you might need to take more of a medication for the same pain relief. Nausea, vomiting and/or constipation. Sleepiness, dizziness, dry mouth, confusion, depression or itching. Physical dependence, meaning you have withdrawal symptoms when a medication is stopped ? this can develop within a few days. KNOW YOUR RESPONSIBILITIES It is important to know exactly how much and how often to take the opioid pain medications you are prescribed. Never take opioids in higher amounts or more often than prescribed. Do not combine opioids with alcohol or other drugs that cause drowsiness, such as benzodiazepines, also known as benzos,including diazepam and alprazolam, muscle relaxants or sleep aids. Never sell or share prescriptionopioids. This is illegal. Store opioids in a secure place and out of reach of others (including children, family, friends and visitors). The last page(s) of this document has been signed and retained as a CHART COPY Signatures Patient Education Materials R.I.C.E. Medication Leaflets My discharge plan and instructions have been reviewed and explained to me and I,RADHA MAYERS understand my current condition and have read and understand these discharge instructions. I have received a written copy of the plan/instructions. If I have questions, I am aware that I should contact my doctor. 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 Multiplanar reformatted images are provided for review. Automated exposure control, iterative reconstruction, and/or weight based adjustment of the mA/kV was utilized to reduce the radiation dose to as low as reasonably achievable. COMPARISON: None. HISTORY ORDERING SYSTEM PROVIDED HISTORY: Reason for Exam: L hip pain FINDINGS: Left hip arthroplasty hardware appears to be intact. The hardware demonstrates no evidence of loosening. There is a lucency through the inferior pubic ramus on the left which is suspicious for a nondisplaced fracture, this appears to be at the location of a remote injury. No additional fracture is definitively identified. Visualized pelvic structures demonstrate no acute abnormalities. IMPRESSION: Suspected acute nondisplaced fracture of the inferior pubic ramus on the left, this appears to be located at the site of a remote injury. No additional fracture identified. RECOMMENDATIONS: Unavailable Interpreted by: Noe Montano MD Preliminary Report By: Noe Montano MD Electronically signed By Noe Montano MD Dictated Date: 06/25/2022 7:21:21 AM Prelim Date: 06/25/2022 7:34:42 AM Sign Date: 06/25/2022 7:34:42 AM Ordering Provider: [facility]11-13-2022 Note ORIGINAL EXAMINATION: CT OF THE LEFT HIP WITHOUT CONTRAST 06/25/2022 7:03 am TECHNIQUE: CT of the left hip was performed without the administration of intravenous contrast. Multiplanar reformatted images are provided for review. Automated exposure control, iterative reconstruction, and/or weight based adjustment of the mA/kV was utilized to reduce the radiation dose to as low as reasonably achievable. COMPARISON: None. HISTORY ORDERING SYSTEM PROVIDED HISTORY: Reason for Exam: L hip pain FINDINGS: Left hip arthroplasty hardware appears to be intact. The hardware demonstrates no evidence of loosening. There is a lucency through the inferior pubic ramus on the left which is suspicious for a nondisplaced fracture, this appears to be at the location of a remote injury. No additional fracture is definitively identified. Visualized pelvic structures demonstrate no acute abnormalities. IMPRESSION: Suspected acute nondisplaced fracture of the inferior pubic ramus on the left, this appears to be located at the site of a remote injury. No additional fracture identified. RECOMMENDATIONS: Unavailable Interpreted by: Noe Montano MD Preliminary Report By: Noe Montano MD Electronically signed By Noe Montano MD Dictated Date: 06/25/2022 7:21:21 AM Prelim Date: 06/25/2022 7:34:42 AM Sign Date: 06/25/2022 7:34:42 AM [facility] instructions Patient Education 05/30/2022 21:56:43 LACERATION, All Laceration (All Closures) A laceration is a cut through the skin. This will usually require stitches (sutures) or prabhu if it is deep. Minor cuts may be treated with a surgical tape closure or skin glue. Home care The following guidelines will help you care for your laceration at home: Extremity, face, or trunk wounds Keep the wound clean and dry. If a bandage was applied and it becomes wet or dirty, replace it. Otherwise, leave it in place for the first 24 hours. If stitches or prabhu were used, clean the wound daily. After removing the bandage, wash the area with soap and water. Use a wet cotton swab to loosen and remove any blood or crust that forms. The doctor may prescribe an antibiotic cream or ointment to prevent infection. Do not stop taking this medication until you have finished the prescribed course or the doctor tells you to stop. The doctor may also prescribe medications for pain. Follow the doctor s instructions for taking these medications. You may remove the bandage to shower as usual after the first 24 hours, but do not soak the area inwater (no swimming) until the stitches or prabhu are removed. If surgical tape was used, keep the area clean and dry. If it becomes wet, blot it dry with a towel. If skin glue was used, do not scratch, rub, or pick at the adhesive film. Do not place tape directly over the film. Do not apply liquid, ointment, or creams to the wound while the film is in place. Do not clean the wound with peroxide and do not apply ointments. Avoid activities that cause heavy sweating until the film has fallen off. Protect the wound from prolonged exposure to sunlight or tanning lamps. You may shower as usual but do not soak the wound in water (no baths or swimming). The film will fall off by itself in 5 10 days. Scalp wounds During the first two days, you may carefully rinse your hair in the shower to remove blood, glass or dirt particles. After two days, you may shower and shampoo your hair normally. Do not soak your scalp in the tub or go swimming until the stitches or prabhu have been removed. Talk with your doctorbefore applying any antibiotic ointment to the wound. Mouth wounds Eat soft foods to reduce pain. If the cut is inside of your mouth, clean by rinsing after each mealand at bedtime with a mixture of equal parts water and hydrogen peroxide (do not swallow!). Or, youcan use a cotton swab to directly apply hydrogen peroxide onto the cut. Mouth wounds can be painfulwhen eating. You may use an qspf-zbh-yesmthc local numbing solution for pain relief. If this is notavailable, you may use any numbing solution for teething babies. You may apply this directly to thesores with a cotton-tip swab or with your finger. Follow-up care Follow up with your health care provider. Most skin wounds heal within ten days. Mouth and facial wounds heal within five days. However, even with proper treatment, a wound infection may sometimes occur. Therefore, you should check the wound daily for signs of infection listed below. Stitches should be removed from the face within five days; stitches and prabhu should be removed from other parts of the body within 7 14 days. If dissolving stitches were used in the mouth, these will fall out or dissolve without the need for removal. If tape closures were used, remove them yourself if they have not fallen off after 7 days. If skin glue was used, the film will fall off by itself in 5 10 days. When to seek medical advice Call your health care provider right away if any of these occur: Bleeding not controlled by direct pressure Signs of infection, including increasing pain in the wound, increasing wound redness or swelling, or pus coming from the wound Fever of 100.4 F (38 C) or higher, or as directed by your health care provider Stitches or prabhu come apart or fall out or surgical tape falls off before 7 days Wound edges re-open [phone] [employer]. [address] [place] [address], [place] [address]. All rights reserved. This information is not intended as a substitute for professional medical care. Always follow yourhealthcare professional's instructions. 05/30/2022 21:56:42 Fall, Mechanical Mechanical Fall You have had a fall today. It appears that the cause is what is called mechanical. That means that you slipped, tripped, or lost your balance. If your fall had been because of fainting or a seizure, you might need other tests. It is normal to feel sore and tight in your muscles and back the next day, and not just the musclesyou injured at first. Remember, all the parts of your body are connected, so while initially one area hurts, the next day another may hurt. Also, when you injure yourself, it causes inflammation, which then causes the muscles to tighten up and hurt more. After the initial worsening, it should gradually improve over the next few days. Do report more severe pain. Even without a definite head injury, you can still get a concussion from your head suddenly jerkingforward, backward, or sideways when falling. Concussions and even bleeding can still happen, especially if you have had a recent injury or take blood thinner medicine. It is not unusual to have a mild headache and feel tired and even nauseous or dizzy. Home care Rest today and go back to your normal activities when you are feeling back to normal. If you were injured during the fall, follow the advice from your healthcare provider regarding careof your injury. At first, do not try to stretch out the sore spots. If there is a strain, stretching may make it worse. Massage may help relax the muscles without stretching them. You can use an ice pack or cold compress on and off to the sore spots 10 to 20 minutes at a time, as often as you feel comfortable. This may help reduce the inflammation, swelling and pain. If you have any scrapes or abrasions, they usually heal within 10 days. It is important to keep theabrasions clean while they initially start to heal. However, an infection may happen even with proper care, so watch for early signs of infection (such as warmth, redness, or swelling). Medicines Talk to your healthcare provider before taking new medicines, especially if you have other medical problems or are taking other medicines. If you need anything for pain, you can take acetaminophen or ibuprofen, unless you were given a different pain medicine to use. Talk with your healthcare provider before using these medicines if you have chronic liver or kidney disease, or ever had a stomach ulcer or gastrointestinal bleeding, or are taking blood thinner medicines. Be careful if you are given prescription pain medicines, narcotics, or medicine for muscle spasm. They can make you sleepy and dizzy, and can affect your coordination, reflexes, and judgment. Do not drive or do work where you can injure yourself when taking them. Fall prevention Fix, remove, or replace anything that caused your fall. Make your home safe by keeping walkways clear of objects you may trip over. Use nonslip pads under rugs. Don't use small area rugs or throw rugs. Don't walk in poorly lit areas. Don't stand on chairs or wobbly ladders. Use caution when reaching overhead or looking upward. This position can cause a loss of balance. Be sure your shoes fit properly, have nonslip bottoms and are in good condition. Be cautious when going up and down curbs, and walking on uneven sidewalks. If your balance is poor, consider using a cane or walker. Stay as active as you can. Balance, flexibility, strength, and endurance all come from exercise. They all play a role in preventing falls. If you have pets, know where they are before you stand up or walk so you don't trip over them. Limit alcohol intake. Alcohol can cause balance problems and increase the risk of falls. Use night lights. Have your eyes tested to be sure you are seeing well, even if you already wear glasses. Follow-up Follow up with your healthcare provider, or as advised. If X-rays or CT scans were done, you will be notified if there is a change in the reading, especially if it affects treatment. Call 911 Call 911 if any of these happen: Trouble breathing Confused or difficulty arousing Fainting or loss of consciousness Rapid or very slow heart rate Seizure Difficulty with speech or vision, weakness of an arm or leg Difficulty walking or talking, loss of balance, numbness or weakness in one side of your body, or facial droop When to seek medical advice Call your healthcare provider right away if any of these happen: Repeated mechanical falls, or unexplained falls Dizziness Severe headache Blood in vomit, stools (black or red color) [id number] [employer]. [address] [place] [address]. All rights reserved. This information is not intended as a substitute for professional medical care. Always follow yourhealthcare professional's instructions. 05/30/2022 21:56:40 Contusion, Elbow Elbow Bruise You have a bruise (contusion) of your elbow. A bruise causes local pain, swelling, and sometimes bruising. There are no broken bones. This injury takes a few days to a few weeks to heal. You may be given a sling for comfort and arm support. You may notice color changes over the skin. It may change from reddish to bluish to greenish or yellowish before the bruising fades. The skin will then go back to its normal color. Home care Follow these guidelines when caring for yourself at home. Keep your arm elevated to reduce pain and swelling. This is most important during the first 2 days (48 hours) after the injury. Put an ice pack on the injured area. Do this for 20 minutes every 1 to 2 hours the first day. You can make an ice pack by wrapping a plastic bag of ice in a thin towel. You should continue to use theice pack 3 to 4 times a day for the next 2 days. Then use the ice pack as needed to ease pain and swelling. Don t use a heating pad. Don t stick a needle into the contusion or bruising to drain it. You may use acetaminophen or ibuprofen to control pain, unless another pain medicine was prescribed. If you have chronic liver or kidney disease, talk with your healthcare provider before using thesemedicines. Also talk with your provider if you ve had a stomach ulcer or gastrointestinal bleeding. If a sling was provided, you may take it off to shower or bathe. Don t wear it for more than 1 weekor it may cause joint stiffness. Follow-up care Follow up with your healthcare provider, or as advised, if you are not starting to get better within the next 3 days. When to seek medical advice Call your healthcare provider right away if any of these occur: Pain or swelling gets worse The back of your elbow becomes very swollen where it almost looks like a gold ball or egg-like massis growing there. This is a sign of olecrenon bursitis or septic bursitis which may need immediate treatment if infected.. Redness, red streaks down the arm, warmth, or drainage from the bruise Hand or fingers becomes cold, blue, numb, or tingly New bruises, and you don t know what caused them Contusion doesn t heal inability to move wrist, hand or fingers properly. [phone] [employer]. [address] [place] [address], [place] [address]. All rights reserved. This information is not intended as a substitute for professional medical care. Always follow yourhealthcare professional's instructions. Follow Up Care 05/30/2022 18:10:21 With:REHAN LUCERO DO Address: [address] [place] [id number] [phone] When:2-4 days [facility] 10-18-2022 Note Discharge Instructions Thank you for allowing [facility] to assist you with your healthcare needs. The following is importantdischarge information regarding your hospital visit. Diagnosis from Today's Visit Fall Contusion of elbow Contusion of wrist Scalp laceration Elbow pain-swelling Fall What to Do Next Instructions from Your Care Team prabhu need removed in 7-10 days No qualifying data available. Post Acute Orders No qualifying data available. You Need to Schedule the Following Appointments Follow Up with REHAN LUCERO DO When Within 2-4 days Where: [address] [place] [id number] [phone] Allergies Darvocet-N 100 Percocet 7.5/325 Ultram Medications Please ask your primary doctor or pharmacist before taking any other medication not listed, including over the counter drugs, herbal medications, vitamins and or supplements as they may interact withyour home medications. What How Much When Why Instructions Last Dose Unchanged aspirin (aspirin 81 mg oral delayed releasetablet) 1 tab(s) by mouth Once a day Unchanged calcium carbonate (Caltrate 600 mg oral tablet) 1 tab(s) by mouth Two (2) times a day Unchanged cholecalciferol (Vitamin D3 5000 intl units oral capsule) 1 cap by mouth Every day Unchanged cyanocobalamin (Vitamin B12 1000 mcg oral tablet) 1 tab(s) by mouth Once a day Unchanged denosumab (Prolia 60 mg/ mL subcutaneous solution) 1 Milliliter Subcutaneous Every 6 months Osteoporosis Unchanged DME (DME MISCellaneous) See instructions Peripheral edema bilateral knee high compression hose 20-30 medium, Dx: R60.9 Unchanged furosemide (furosemide 20 mg oral tablet) 1 tab(s) by mouth Once a day Unchanged gabapentin (gabapentin 100 mg oral capsule) 1 cap Four (4) times a day Dr Cuenca Unchanged isosorbide dinitrate IR (isosorbide dinitrate 5 mg oral tablet) Unchanged levothyroxine (levothyroxine 50 mcg (0.05 mg) oral tablet) See instructions TAKE 1 TABLET BY MOUTH EVERY DAY Unchanged lidocaine topical (lidocaine 5% topical patch) 2 patch(es) Transdermal Every day Chronic back pain remove patches after 12 hours Unchanged metoprolol (metoprolol tartrate 25 mg oral tablet) 1 tab(s) by mouth Two (2) times a day Unchanged multivitamin (Super B Complex oral tablet) 1 tab(s) by mouth Every day Unchanged nitroGLYcerin (Nitrostat 0.4 mg sublingual tablet) 1 tab(s) under the tongue Every 5 minutes as needed for as needed for chest pain Unchanged pantoprazole (pantoprazole 40 mg oral enteric coated tablet) Unchanged pramipexole (pramipexole 0.5 mg oral tablet) 1 tab(s) by mouth Daily at bedtime as needed for restless legs Restless leg syndrome Unchanged sertraline (sertraline 50 mg oral tablet) 1 tab(s) by mouth Once a day Unchanged spironolactone (spironolactone 25 mg oral tablet) 1 tab(s) by mouth Once a day Please take this list to your next doctor s visit. Bring all medications you take, including over the counter medications, herbals and other supplements with you to your doctor s visit. Patients and families are reminded to discard old lists and to update any records with all medication providers or retail pharmacies. Education Materials Laceration (All Closures) A laceration is a cut through the skin. This will usually require stitches (sutures) or prabhu if it is deep. Minor cuts may be treated with a surgical tape closure or skin glue. Home care The following guidelines will help you care for your laceration at home: Extremity, face, or trunk wounds Keep the wound clean and dry. If a bandage was applied and it becomes wet or dirty, replace it. Otherwise, leave it in place for the first 24 hours. If stitches or prabhu were used, clean the wound daily. After removing the bandage, wash the area with soap and water. Use a wet cotton swab to loosen and remove any blood or crust that forms. The doctor may prescribe an antibiotic cream or ointment to prevent infection. Do not stop taking this medication until you have finished the prescribed course or the doctor tells you to stop. The doctor may also prescribe medications for pain. Follow the doctor s instructions for taking these medications. You may remove the bandage to shower as usual after the first 24 hours, but do not soak the area inwater (no swimming) until the stitches or prabhu are removed. If surgical tape was used, keep the area clean and dry. If it becomes wet, blot it dry with a towel. If skin glue was used, do not scratch, rub, or pick at the adhesive film. Do not place tape directly over the film. Do not apply liquid, ointment, or creams to the wound while the film is in place. Do not clean the wound with peroxide and do not apply ointments. Avoid activities that cause heavy sweating until the film has fallen off. Protect the wound from prolonged exposure to sunlight or tanning lamps. You may shower as usual but do not soak the wound in water (no baths or swimming). The film will fall off by itself in 5 10 days. Scalp wounds During the first two days, you may carefully rinse your hair in the shower to remove blood, glass or dirt particles. After two days, you may shower and shampoo your hair normally. Do not soak your scalp in the tub or go swimming until the stitches or prabhu have been removed. Talk with your doctorbefore applying any antibiotic ointment to the wound. Mouth wounds Eat soft foods to reduce pain. If the cut is inside of your mouth, clean by rinsing after each mealand at bedtime with a mixture of equal parts water and hydrogen peroxide (do not swallow!). Or, youcan use a cotton swab to directly apply hydrogen peroxide onto the cut. Mouth wounds can be painfulwhen eating. You may use an ksmv-nat-xglsqwh local numbing solution for pain relief. If this is notavailable, you may use any numbing solution for teething babies. You may apply this directly to thesores with a cotton-tip swab or with your finger. Follow-up care Follow up with your health care provider. Most skin wounds heal within ten days. Mouth and facial wounds heal within five days. However, even with proper treatment, a wound infection may sometimes occur. Therefore, you should check the wound daily for signs of infection listed below. Stitches should be removed from the face within five days; stitches and prabhu should be removed from other parts of the body within 7 14 days. If dissolving stitches were used in the mouth, these will fall out or dissolve without the need for removal. If tape closures were used, remove them yourself if they have not fallen off after 7 days. If skin glue was used, the film will fall off by itself in 5 10 days. When to seek medical advice Call your health care provider right away if any of these occur: Bleeding not controlled by direct pressure Signs of infection, including increasing pain in the wound, increasing wound redness or swelling, or pus coming from the wound Fever of 100.4 F (38 C) or higher, or as directed by your health care provider Stitches or prabhu come apart or fall out or surgical tape falls off before 7 days Wound edges re-open [phone] [employer]. [address] [place] [address]. All rights reserved. This information is not intended as a substitute for professional medical care. Always follow yourhealthcare professional's instructions. Mechanical Fall You have had a fall today. It appears that the cause is what is called mechanical. That means that you slipped, tripped, or lost your balance. If your fall had been because of fainting or a seizure, you might need other tests. It is normal to feel sore and tight in your muscles and back the next day, and not just the musclesyou injured at first. Remember, all the parts of your body are connected, so while initially one area hurts, the next day another may hurt. Also, when you injure yourself, it causes inflammation, which then causes the muscles to tighten up and hurt more. After the initial worsening, it should gradually improve over the next few days. Do report more severe pain. Even without a definite head injury, you can still get a concussion from your head suddenly jerkingforward, backward, or sideways when falling. Concussions and even bleeding can still happen, especially if you have had a recent injury or take blood thinner medicine. It is not unusual to have a mild headache and feel tired and even nauseous or dizzy. Home care Rest today and go back to your normal activities when you are feeling back to normal. If you were injured during the fall, follow the advice from your healthcare provider regarding careof your injury. At first, do not try to stretch out the sore spots. If there is a strain, stretching may make it worse. Massage may help relax the muscles without stretching them. You can use an ice pack or cold compress on and off to the sore spots 10 to 20 minutes at a time, as often as you feel comfortable. This may help reduce the inflammation, swelling and pain. If you have any scrapes or abrasions, they usually heal within 10 days. It is important to keep theabrasions clean while they initially start to heal. However, an infection may happen even with proper care, so watch for early signs of infection (such as warmth, redness, or swelling). Medicines Talk to your healthcare provider before taking new medicines, especially if you have other medical problems or are taking other medicines. If you need anything for pain, you can take acetaminophen or ibuprofen, unless you were given a different pain medicine to use. Talk with your healthcare provider before using these medicines if you have chronic liver or kidney disease, or ever had a stomach ulcer or gastrointestinal bleeding, or are taking blood thinner medicines. Be careful if you are given prescription pain medicines, narcotics, or medicine for muscle spasm. They can make you sleepy and dizzy, and can affect your coordination, reflexes, and judgment. Do not drive or do work where you can injure yourself when taking them. Fall prevention Fix, remove, or replace anything that caused your fall. Make your home safe by keeping walkways clear of objects you may trip over. Use nonslip pads under rugs. Don't use small area rugs or throw rugs. Don't walk in poorly lit areas. Don't stand on chairs or wobbly ladders. Use caution when reaching overhead or looking upward. This position can cause a loss of balance. Be sure your shoes fit properly, have nonslip bottoms and are in good condition. Be cautious when going up and down curbs, and walking on uneven sidewalks. If your balance is poor, consider using a cane or walker. Stay as active as you can. Balance, flexibility, strength, and endurance all come from exercise. They all play a role in preventing falls. If you have pets, know where they are before you stand up or walk so you don't trip over them. Limit alcohol intake. Alcohol can cause balance problems and increase the risk of falls. Use night lights. Have your eyes tested to be sure you are seeing well, even if you already wear glasses. Follow-up Follow up with your healthcare provider, or as advised. If X-rays or CT scans were done, you will be notified if there is a change in the reading, especially if it affects treatment. Call 911 Call 911 if any of these happen: Trouble breathing Confused or difficulty arousing Fainting or loss of consciousness Rapid or very slow heart rate Seizure Difficulty with speech or vision, weakness of an arm or leg Difficulty walking or talking, loss of balance, numbness or weakness in one side of your body, or facial droop When to seek medical advice Call your healthcare provider right away if any of these happen: Repeated mechanical falls, or unexplained falls Dizziness Severe headache Blood in vomit, stools (black or red color) 4719-9442 [employer]. [address] [place] [address]. All rights reserved. This information is not intended as a substitute for professional medical care. Always follow yourhealthcare professional's instructions. Elbow Bruise You have a bruise (contusion) of your elbow. A bruise causes local pain, swelling, and sometimes bruising. There are no broken bones. This injury takes a few days to a few weeks to heal. You may be given a sling for comfort and arm support. You may notice color changes over the skin. It may change from reddish to bluish to greenish or yellowish before the bruising fades. The skin will then go back to its normal color. Home care Follow these guidelines when caring for yourself at home. Keep your arm elevated to reduce pain and swelling. This is most important during the first 2 days (48 hours) after the injury. Put an ice pack on the injured area. Do this for 20 minutes every 1 to 2 hours the first day. You can make an ice pack by wrapping a plastic bag of ice in a thin towel. You should continue to use theice pack 3 to 4 times a day for the next 2 days. Then use the ice pack as needed to ease pain and swelling. Don t use a heating pad. Don t stick a needle into the contusion or bruising to drain it. You may use acetaminophen or ibuprofen to control pain, unless another pain medicine was prescribed. If you have chronic liver or kidney disease, talk with your healthcare provider before using thesemedicines. Also talk with your provider if you ve had a stomach ulcer or gastrointestinal bleeding. If a sling was provided, you may take it off to shower or bathe. Don t wear it for more than 1 weekor it may cause joint stiffness. Follow-up care Follow up with your healthcare provider, or as advised, if you are not starting to get better within the next 3 days. When to seek medical advice Call your healthcare provider right away if any of these occur: Pain or swelling gets worse The back of your elbow becomes very swollen where it almost looks like a gold ball or egg-like massis growing there. This is a sign of olecrenon bursitis or septic bursitis which may need immediate treatment if infected.. Redness, red streaks down the arm, warmth, or drainage from the bruise Hand or fingers becomes cold, blue, numb, or tingly New bruises, and you don t know what caused them Contusion doesn t heal inability to move wrist, hand or fingers properly. 2252-2506 [employer]. [address] [place] [address]. All rights reserved. This information is not intended as a substitute for professional medical care. Always follow yourhealthcare professional's instructions. Additional Information VACCINATE! IT SAVES LIVES! Members of the community who have not yet received the COVID-19 vaccine and would like to receive it can visit one of [facility] vaccine clinics. There are many vaccine clinic locations within the [facility]. For locations and available times, please visit [email or web address]. It is important to note that some COVID mobile vaccine clinics are held outdoors and may be canceled in rainy orstormy conditions. To learn more about pediatric vaccinations (ages 5-11), we invite you to visit the [facility] webpage. [email or web address] [email or web address] learn more about the COVID-19 vaccine, we invite you to visit the [employer] website for a list of frequently asked questions. [email or web address] [facility] Patient [facility] Access Instructions: Stay connected with your healthcare team and access your personal medical information anytime with the [facility] Patient Portal. If you would like a full copy of your medical records please contact the [facility] Medical Records Department Sunday through Sunday between 8a.m. and 4:30p.m. Please follow the directions below to access the portal: 1.Access the email account you provided upon registration to the universal health services.2.Look for an invitation email from [facility].3.Open the email and access the invitation link: Accept Invitation to [facility]4.Fill in the required [place] to create your account. Sign into [email or web address] with your username and password that you created in the above steps to stay up to date. You can then view a summary of results, a summary of your visits, and the ability to download your summaries to your computer or send the information securely to a physician. Remember that your healthcare information is confidential, so carefully consider who you will allow to register on the [facility] Patient Portal for access to your information. You can also access the [facility] Patient Portal on the [employer] cherelle. Simply click on Health Records under [employer] and then click on the [employer] logo. HOW TO SAFELY DISPOSE OF PRESCRIPTION MEDICATIONS Please use one of the following methods to safely dispose of your unused medications. 1.Use a drug disposal kit: the drug disposal pouch allows you to safely discard your old and unuseddrugs. Ask your nurse to give you one when you are discharged.2.Visit a local take-back location: Many local pharmacies and police departments have programs that collect old and unwanted prescriptiondrugs. Call your local pharmacy or go to http://bit.[employer]0E3Ix0p to find one close to you.3.Make use of household items: Use cat litter or old coffee grounds to dispose medications if other options arenot available. Mix your drugs with these household products, seal them in an airtight container andthrow it into the garbage. Call [facility]: [phone] to be sure your drugs can be disposed of in this way. Some medicines may require a different approach.4.Never flush your medications down the toilet. IF YOU HAVE BEEN PRESCRIBED AN OPIOIDS FOR PAIN If you have been prescribed an opioid (such as hydrocodone, oxycodone or morphine), it is critical to understand the possible side effects and risks of opioid pain medications. Even when taken as directed, opioids can have several side effects including: Tolerance, meaning you might need to take more of a medication for the same pain relief. Nausea, vomiting and/or constipation. Sleepiness, dizziness, dry mouth, confusion, depression or itching. Physical dependence, meaning you have withdrawal symptoms when a medication is stopped ? this can develop within a few days. KNOW YOUR RESPONSIBILITIES It is important to know exactly how much and how often to take the opioid pain medications you are prescribed. Never take opioids in higher amounts or more often than prescribed. Do not combine opioids with alcohol or other drugs that cause drowsiness, such as benzodiazepines, also known as benzos,including diazepam and alprazolam, muscle relaxants or sleep aids. Never sell or share prescriptionopioids. This is illegal. Store opioids in a secure place and out of reach of others (including children, family, friends and visitors). The last page(s) of this document has been signed and retained as a CHART COPY Signatures Patient Education Materials LACERATION, All Fall, Mechanical Contusion, Elbow Medication Leaflets My discharge plan and instructions have been reviewed and explained to me and I,RADHA MAYERS understand my current condition and have read and understand these discharge instructions. I have received a written copy of the plan/instructions. If I have questions, I am aware that I should contact my doctor. 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 Patient status post prior kyphoplasty at T10 and L1. Left hip prosthesis is noted. Patient status post cholecystectomy. There is a nonspecific bowel gas pattern with mild constipation. IMPRESSION: 1. Moderate compression deformities, unchanged from 2018 involving T11, L2 and L3. 2. No acute bony abnormality. Interpreted by: Mark Hong DO Preliminary Report By: Mark Hong DO Electronically signed By Mark Hong DO Dictated Date: 05/30/2022 9:36:12 PM Prelim Date: 05/30/2022 9:38:49 PM Sign Date: 05/30/2022 9:38:49 PM Ordering Provider: [facility]10-18-2022 Note ORIGINAL EXAMINATION: THREE XRAY VIEWS OF THE LEFT ELBOW 05/30/2022 9:03 pm COMPARISON: None. HISTORY: ORDERING SYSTEM PROVIDED HISTORY: Reason for Exam: fall FINDINGS: There is no elbow effusion. There is no acute fracture or dislocation. Alignment is normal. IMPRESSION: No acute abnormality. Interpreted by: Mark Hong DO Preliminary Report By: Mark Hong DO Electronically signed By Mark Hong DO Dictated Date: 05/30/2022 9:32:01 PM Prelim Date: 05/30/2022 9:32:37 PM Sign Date: 05/30/2022 9:32:37 PM Ordering Provider: [facility]10-18-2022 Note ORIGINAL EXAMINATION: THREE XRAY VIEWS OF THE LEFT WRIST 05/30/2022 9:02 pm COMPARISON: None. HISTORY: ORDERING SYSTEM PROVIDED HISTORY: Reason for Exam: fall FINDINGS: No acute fracture affects the distal radius, ulna or wrist. 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 No joint effusion affects the wrist. IMPRESSION: 1. 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 2. No acute fracture. Interpreted by: Mark Hong DO Preliminary Report By: Mark Hong DO Electronically signed By Mark Hong DO Dictated Date: 05/30/2022 9:30:41 PM Prelim Date: 05/30/2022 9:31:47 PM Sign Date: 05/30/2022 9:31:47 PM [facility]ing [facility] Note ORIGINAL EXAMINATION: CT OF THE HEAD WITHOUT CONTRAST 05/30/2022 8:59 pm TECHNIQUE: CT of the head was performed without the administration of intravenous contrast. Automated exposure control, iterative reconstruction, and/or weight based adjustment of the mA/kV was utilized to reduce the radiation dose to as low as reasonably achievable. COMPARISON: None. HISTORY: ORDERING SYSTEM PROVIDED HISTORY: Reason for Exam: pain; trauma patient FINDINGS: BRAIN/VENTRICLES: There is no acute intracranial hemorrhage, mass effect or midline shift. No abnormal extra-axial fluid collection. The persaud-white differentiation is maintained without evidence of an acute infarct. There is no evidence of hydrocephalus. ORBITS: The visualized portion of the orbits demonstrate no acute abnormality. SINUSES: The visualized paranasal sinuses and mastoid air cells demonstrate no acute abnormality. SOFT TISSUES/SKULL: Small central posterior scalp contusion and multiple prabhu overlies the left occipital region. No acute fractures identified. IMPRESSION: No acute intracranial abnormality. Small posterior scalp contusion. Interpreted by: Mark Hong DO Preliminary Report By: Mark Hong DO Electronically signed By Mark Hong DO Dictated Date: 05/30/2022 9:28:52 PM Prelim Date: 05/30/2022 9:30:30 PM Sign Date: 05/30/2022 9:30:30 PM [facility] Note ORIGINAL EXAMINATION: 3 XRAY VIEWS OF THE LUMBAR SPINE 05/30/2022 9:04 pm COMPARISON: 01/04/2018 HISTORY: ORDERING SYSTEM PROVIDED HISTORY: Reason for Exam: fall FINDINGS: There is redemonstration of moderate compression deformities involving T11, L2, and L3, all similar to prior assessment. Patient status post prior kyphoplasty at T10 and L1. Left hip prosthesis is noted. Patient status post cholecystectomy. There is a nonspecific bowel gas pattern with mild constipation. IMPRESSION: 1. Moderate compression deformities, unchanged from 2018 involving T11, L2 and L3. 2. No acute bony abnormality. Interpreted by: Mark Hong DO Preliminary Report By: Mark Hong DO Electronically signed By Mark Hong DO Dictated Date: 05/30/2022 9:36:12 PM Prelim Date: 05/30/2022 9:38:49 PM Sign Date: 05/30/2022 9:38:49 PM Ordering Provider: [address]18-2022 Note ORIGINAL EXAMINATION: THREE XRAY VIEWS OF THE LEFT ELBOW 05/30/2022 9:03 pm COMPARISON: None. HISTORY: ORDERING SYSTEM PROVIDED HISTORY: Reason for Exam: fall FINDINGS: There is no elbow effusion. There is no acute fracture or dislocation. Alignment is normal. IMPRESSION: No acute abnormality. Interpreted by: Mark Hong DO Preliminary Report By: Mark Hong DO Electronically signed By Mark Hong DO Dictated Date: 05/30/2022 9:32:01 PM Prelim Date: 05/30/2022 9:32:37 PM Sign Date: 05/30/2022 9:32:37 PM Ordering Provider: [facility]10-18-2022 Note ORIGINAL EXAMINATION: THREE XRAY VIEWS OF THE LEFT WRIST 05/30/2022 9:02 pm COMPARISON: None. HISTORY: ORDERING SYSTEM PROVIDED HISTORY: Reason for Exam: fall FINDINGS: No acute fracture affects the distal radius, ulna or wrist. 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 No joint effusion affects the wrist. IMPRESSION: 1. 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 2. No acute fracture. Interpreted by: Mark Hong DO Preliminary Report By: Mark Hong DO Electronically signed By Mark Hong DO Dictated Date: 05/30/2022 9:30:41 PM Prelim Date: 05/30/2022 9:31:47 PM Sign Date: 05/30/2022 9:31:47 PM Ordering Provider: [facility]10-18-2022 Note ORIGINAL EXAMINATION: CT OF THE HEAD WITHOUT CONTRAST 05/30/2022 8:59 pm TECHNIQUE: CT of the head was performed without the administration of intravenous contrast. Automated exposure control, iterative reconstruction, and/or weight based adjustment of the mA/kV was utilized to reduce the radiation dose to as low as reasonably achievable. COMPARISON: None. HISTORY: ORDERING SYSTEM PROVIDED HISTORY: Reason for Exam: pain; trauma patient FINDINGS: BRAIN/VENTRICLES: There is no acute intracranial hemorrhage, mass effect or midline shift. No abnormal extra-axial fluid collection. The persaud-white differentiation is maintained without evidence of an acute infarct. There is no evidence of hydrocephalus. ORBITS: The visualized portion of the orbits demonstrate no acute abnormality. SINUSES: The visualized paranasal sinuses and mastoid air cells demonstrate no acute abnormality. SOFT TISSUES/SKULL: Small central posterior scalp contusion and multiple prabhu overlies the left occipital region. No acute fractures identified. IMPRESSION: No acute intracranial abnormality. Small posterior scalp contusion. Interpreted by: Mark Hong DO Preliminary Report By: Mark Hong DO Electronically signed By Mark Hong DO Dictated Date: 05/30/2022 9:28:52 PM Prelim Date: 05/30/2022 9:30:30 PM Sign Date: 05/30/2022 9:30:30 PM Ordering Provider: [facility]07-15-2022 Note ORIGINAL EXAMINATION: TWO XRAY VIEWS OF THE CERVICAL SPINE02/24/2022 2:06 pm COMPARISON: X-ray cervical cross-table lateral April 01, 2019. HISTORY: ORDERING SYSTEM PROVIDED HISTORY: Reason for Exam: Status post fall 1 month ago, intermittent right sided neck pain. FINDINGS: The C7 vertebra is not adequately visualized. There is slight anterolisthesis of C4 on C5. The cervical lordosis maintained. No fracture seen. The vertebral body heights are maintained. There is slight narrowing of the intervertebral discs of the lower cervical spine with endplate osteophytes seen on C5 and C6 and facet arthrosis in the mid cervical region. There is no significant prevertebral soft tissue swelling. The odontoid appears intact on the open-mouth view. The atlantoaxial relationship is maintained. Severe facet arthropathy at multiple levels. Moderate right carotid calcification. There is a nodular density in the right upper lung. There are some rib fractures in this region and this could be healing callus. IMPRESSION: 1. Limited study due to nonvisualization of C7 vertebra, no fracture of the visualized vertebrae. If there is strong concern, consider CT. 2. Moderate degenerative changes. Nodular density in the right upper lung. Uncertain if this is an actual lung nodule or summation of healing rib callus. Suggest chest PA and lateral views to clarify this finding. I have personally reviewed the images of this examination and agree with the resident's findings and interpretation. Interpreted by: Alex Maciel MD Preliminary Report By: Cruz Armstrong Electronically signed By Alex Maciel MD Dictated Date: 02/24/2022 3:26:58 PM Prelim Date: 02/24/2022 4:53:36 PM Sign Date: 02/24/2022 4:53:36 PM Ordering Provider: [facility]07-15-2022 Note ORIGINAL EXAMINATION: TWO XRAY VIEWS OF THE CERVICAL SPINE02/24/2022 2:06 pm COMPARISON: X-ray cervical cross-table lateral April 01, 2019. HISTORY: ORDERING SYSTEM PROVIDED HISTORY: Reason for Exam: Status post fall 1 month ago, intermittent right sided neck pain. FINDINGS: The C7 vertebra is not adequately visualized. There is slight anterolisthesis of C4 on C5. The cervical lordosis maintained. No fracture seen. The vertebral body heights are maintained. There is slight narrowing of the intervertebral discs of the lower cervical spine with endplate osteophytes seen on C5 and C6 and facet arthrosis in the mid cervical region. There is no significant prevertebral soft tissue swelling. The odontoid appears intact on the open-mouth view. The atlantoaxial relationship is maintained. Severe facet arthropathy at multiple levels. Moderate right carotid calcification. There is a nodular density in the right upper lung. There are some rib fractures in this region and this could be healing callus. IMPRESSION: 1. Limited study due to nonvisualization of C7 vertebra, no fracture of the visualized vertebrae. If there is strong concern, consider CT. 2. Moderate degenerative changes. Nodular density in the right upper lung. Uncertain if this is an actual lung nodule or summation of healing rib callus. Suggest chest PA and lateral views to clarify this finding. I have personally reviewed the images of this examination and agree with the resident's findings and interpretation. Interpreted by: Alex Maciel MD Preliminary Report By: Cruz Armstrong Electronically signed By Alex Maciel MD Dictated Date: 02/24/2022 3:26:58 PM Prelim Date: 02/24/2022 4:53:36 PM Sign Date: 02/24/2022 4:53:36 PM Ordering Provider: [facility]03-21-2022 Evaluation + Plan noteExtracted from: Title:Clinical Document Author:LOUIS PEARCE Date:10/31/21 [place] ADMISSION HISTORY AN D PHYSICIAL CHIEF COMPLAINT: HISTORY OF PRESENT ILLNESS: REVIEW OF SYSTEMS: ACTIVE PROBLEMS: (30) Abnormal x-ray of forearm (482301180) Acute kidney injury (06882363) Anxiety (55100021) CAD (coronary artery disease) (02003671) Carpal tunnel syndrome, left (57812328) Chronic back pain (663948414) Chronic diastolic heart failure (7720716441) Chronic kidney disease (2697918484) Chronic nausea (4873081443) Chronic systolic heart failure (7494085566) Depression (040977715) Dysphagia (40853482) Eosinophilic esophagitis (333622955) Fibromyalgia (18799249) GERD (gastroesophageal reflux disease) (7920887118) Hiatal hernia (899397778) History of compression fracture of vertebral column (6711089876) HTN (hypertension) (5727704243) Hx of fall in Mar with R pelvic hairline fx, R wrist fx and R clavicle fx with surgery Hyperlipidemia (708852415) Hypothyroidism (61256886) IBS (irritable bowel syndrome) (81215204) Large hiatal hernia (329230003) Lightheadedness (2926407924) Osteoporosis (166268614) Peripheral edema (875576890) Personal history of COVID-19 (1077142692) RA (rheumatoid arthritis) (747674854) Restless leg syndrome (45955775) Screening for colon cancer (802291990) MEDICATIONS: Active Inpt Meds: None Active PRN Meds: None One Time Meds: (Ordered) onabotulinumtoxinA (Botox) Start: 10/31/21 8:00:00 EDT, Dose = 100 unit(s), = 1 vial(s), Intramuscular, Once, Stop: 10/31/21 8:00:00 EDT, 0 Active IV Meds: Lactated Ringers Infusion 1,000 mL (LR 1,000 mL) Start: 10/31/21 7:23:00 EDT, Rate: 50 mL/hr Lactated Ringers Infusion 1,000 mL Start: 10/31/21 7:46:00 EDT, Rate: 50 mL/hr ALLERGIES: (3) Darvocet-N 100 Percocet 7.5/325 Ultram FAMILY HISTORY: SOCIAL HISTORY: PHYSICAL EXAM: VITALS: ZmlfyeXmpnQDGlzmcYMNzZ1BTV2YjwsQc(kg) 10/31 09:10--100/59--------10/31 57.5 10/31 07:3136.2--552147GJ 24 Hr Tmax: 36.2 at 10/31 07:31 36 Hr Tmax: 36.2 at 10/31 07:31 Vital Signs are the last 5 in the past 48 hours. Weights display the last 5 within 7 days. Initial Wt: 10/31 57.5 kg 127 lb Current Wt: 10/31 57.5 kg 127 lb GENERAL: HEENT: CARDIOVASCULAR: RESPIRATORY: ABDOMEN: EXREMETIES: NEUROLOGICAL: PSYCHIATRIC: LABS: No 36hr Lab Data DIAGNOSTICS: IMPRESSION: PLAN: History and Physical Update I have examined the patient; reviewed the H&P and there are no changes to the H&P unless noted below. Future Appointments Appointment Date:12/30/2021 02:00:00 PM Scheduled Provider:REHAN LUCERO DO Location:[facility] Appointment Type:PC OV Future Scheduled Tests Radiology* XR Chest 2 Views (PA & Lateral) 08/26/21 [facility] 03-21-2022 Hospital Discharge instructions Patient Education 10/31/2021 10:01:37 Monitored Anesthesia Care, Care After Monitored Anesthesia Care, Care After These instructions provide you with information about caring for yourself after your procedure. Your health care provider may also give you more specific instructions. Your treatment has been plannedaccording to current medical practices, but problems sometimes occur. Call your health care provider if you have any problems or questions after your procedure. What can I expect after the procedure? After your procedure, you may: Feel sleepy for several hours. Feel clumsy and have poor balance for several hours. Feel forgetful about what happened after the procedure. Have poor judgment for several hours. Feel nauseous or vomit. Have a sore throat if you had a breathing tube during the procedure. Follow these instructions at home: For at least 24 hours after the procedure: Have a responsible adult stay with you. It is important to have someone help care for you until youare awake and alert. Rest as needed. Do not: ?Participate in activities in which you could fall or become injured. ?Drive. ?Use heavy machinery. ?Drink alcohol. ?Take sleeping pills or medicines that cause drowsiness. ?Make important decisions or sign legal documents. ?Take care of children on your own. Eating and drinking Follow the diet that is recommended by your health care provider. If you vomit, drink water, juice, or soup when you can drink without vomiting. Make sure you have little or no nausea before eating solid foods. General instructions Take [id number] and prescription medicines only as told by your health care provider. If you have sleep apnea, surgery and certain medicines can increase your risk for breathing problems. Follow instructions from your health care provider about wearing your sleep device: ?Anytime you are sleeping, including during daytime naps. ?While taking prescription pain medicines, sleeping medicines, or medicines that make you drowsy. If you smoke, do not smoke without supervision. Keep all follow-up visits as told by your health care provider. This is important. Contact a health care provider if: You keep feeling nauseous or you keep vomiting. You feel light-headed. You develop a rash. You have a fever. Get help right away if: You have trouble breathing. Summary For several hours after your procedure, you may feel sleepy and have poor judgment. Have a responsible adult stay with you for at least 24 hours or until you are awake and alert. This information is not intended to replace advice given to you by your health care provider. Make sure you discuss any questions you have with your health care provider. Document Released: 11/19/2016 Document Revised: 10/28/2018 Document Reviewed: 11/19/2016 99tests Patient Education 2020 [employer] 10/31/2021 10:01:37 9 - AO Minor Esophagogastroduodenoscopy (10/24) (Custom) Esophagogastroduodenoscopy This is an endoscopic procedure (a procedure that uses a device like a flexible telescope) that allows your caregiver to view the upper stomach and small bowel. This test allows your caregiver to look at the esophagus. The esophagus carries food from your mouth to your stomach. They can also look at your duodenum. This is the first part of the small intestine that attaches to the stomach. This test is used to detect problems in the bowel such as ulcers and inflammation. MEANING OF TEST Your caregiver will go over the test results with you and discuss the importance and meaning of your results, as well as treatment options and the need for additional tests if necessary. OBTAINING THE TEST RESULTS Your caregiver s office will call you with the results of the test. POST SEDATION INSTRUCTIONS Rest at home today. Since your coordination may be impaired, be cautious on stairways, do not drive any vehicle or operate any heavy machinery, or use any sharp instruments for the remainder of the day. Do not drink any alcoholic beverages or make any major decisions for 24 hours. POST PROCEDURE INSTRUCTIONS Progress slowly with full liquids then resume previous diet and medications. Belching or passing of gas is to be expected. Notify the physician if you have severe chest pain, fever, or if difficulty when swallowing persists. 10/21/13 Custom Follow Up Care 10/05/2021 07:28:35 With:LOUIS PEARCE MD Address: [phone] When: Unknown Comments:follow up as necessary [facility] 12-29-2021 Hospital Discharge instructions Patient Education 08/09/2021 22:53:27 Leg Swelling in a Single Leg Leg Swelling in a Single Leg Swelling of the arms, feet, ankles, and legs is called edema. It is caused by extra fluid collecting in the tissues. Because of gravity, extra fluid in the body settles to the lowest part. That is why the legs and feet are most affected. You have swelling in a single leg. Some of the causes for swelling in only a single leg include: Infection in the foot or leg Long-term problem with a vein not working well (venous insufficiency) Swollen, twisted vein in the leg (varicose veins) Insect bite or sting on the foot or leg Injury or recent surgery on the foot or leg Blood clot in a deep vein of the leg (deep vein thrombosis or DVT) Inflammation of the joints of the lower leg Medical treatment will depend on what is causing your swelling. Home care Follow these guidelines when caring for yourself at home: Don t wear tight clothing. Keep your legs up while lying or sitting. Take any medicines as directed. If infection, injury, or recent surgery is the cause of your swelling, stay off your legs as much as possible until your symptoms get better. If you have venous insufficiency or varicose veins, don t sit or billing checker one place for long periods of time. Take breaks and walk around every few hours. Talk with your healthcare provider about wearing support stockings to help lessen swelling during the day. Wear compression stockings with your doctor's approval Follow-up care Follow up with your healthcare provider as advised. Call 911 Call 911 if any of these occur: Shortness of breath or trouble breathing Chest pain Coughing up blood Fainting or loss of consciousness When to seek medical advice Call your healthcare provider right away if any of these occur: Increased pain, swelling, warmth, or redness of the leg, ankle, or foot Fever of 100.4 F (38 C) or higher, or as directed by your healthcare provider Weakness or dizziness Shaking chills Drenching sweats [phone] [employer]. [address] [place] [address]. All rights reserved. This information is not intended as a substitute for professional medical care. Always follow yourhealthcare professional's instructions. 08/09/2021 22:53:22 Cellulitis Skin Infection Cellulitis Cellulitis is an infection of the deep layers of skin. A break in the skin, such as a cut or scratch, can let bacteria under the skin. If the bacteria get to deep layers of the skin, it can be serious. If not treated, cellulitis can get into the bloodstream and lymph nodes. The infection can then spread throughout the body. This causes serious illness. Cellulitis causes the affected skin to become red, swollen, warm, and sore. The reddened areas havea visible border. An open sore may leak fluid (pus). You may have a fever, chills, and pain. Cellulitis is treated with antibiotics taken for 7 to 10 days. An open sore may be cleaned and covered with cool wet gauze. Symptoms should get better 1 to 2 days after treatment is started. Make sure to take all the antibiotics for the full number of days until they are gone. Keep taking the medicine even if your symptoms go away. Home care Follow these tips: Limit the use of the part of your body with cellulitis. If the infection is on your leg, keep your leg raised while sitting. This will help to reduce swelling. Take all of the antibiotic medicine exactly as directed until it is gone. Do not miss any doses, especially during the first 7 days. Don t stop taking the medicine when your symptoms get better. Keep the affected area clean and dry. Wash your hands with soap and warm water before and after touching your skin. Anyone else who touches your skin should also wash his or her hands. Don't share towels. Follow-up care Follow up with your healthcare provider, or as advised. If your infection does not go away on the first antibiotic, your healthcare provider will prescribe a different one. When to seek medical advice Call your healthcare provider right away if any of these occur: Red areas that spread Swelling or pain that gets worse Fluid leaking from the skin (pus) Fever higher of 100.4 F (38.0 C) or higher after 2 days on antibiotics [phone] [employer] [address] [place] [address]. All rights reserved. This information is not intended as a substitute for professional medical care. Always follow yourhealthcare professional's instructions. 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 (congestive heart failure) chronic Essential (primary) hypertension chronic History of loop recorder May 05, 2019 chronic Hyperlipidemia chronic Paroxysmal atrial fibrillation [facility] Work Phone: 1(505) 191-540409-23-2019 Evaluation note* Diagnosis Onset Date Resolution Status History of loop recorder May 05, 2019 chronic Paroxysmal atrial fibrillation chronic Syncope March, resolved Aortic regurgitation acute Essential (primary) hypertension chronic History of coronary artery stent placement May, 2011 chronic Hyperlipidemia chronic Paroxysmal atrial fibrillation [facility] Work Phone: [phone]) 916-338609-23-2019 Evaluation note* Diagnosis Onset Date Resolution Status (HFpEF) heart failure with p reserved ejection fraction chronic History of loop recorder May 05, 2019 chronic Paroxysmal atrial fibrillation chronic (HFpEF) heart failure with p reserved ejection fraction chronic History of loop recorder May 05, 2019 chronic Paroxysmal atrial fibrillation chronic Aortic regurgitation acute Essential (primary) hypertension chronic History of coronary artery stent placement May chronic History of loop recorder May 05, 2019 chronic Hyperlipidemia chronic Paroxysmal atrial fibrillation [facility] Work Phone: [phone]) 680-490809-23-2019 Evaluation note* Diagnosis Onset Date Resolution Status (HFpEF) heart failure with p reserved ejection fraction chronic History of loop recorder May 05, 2019 chronic Paroxysmal atrial fibrillation chronic Aortic regurgitation acute Essential (primary) hypertension chronic History of coronary artery stent placement May chronic History of loop recorder May 05, 2019 chronic Hyperlipidemia chronic Paroxysmal atrial fibrillation chronic Aortic regurgitation acute Essential (primary) hypertension chronic History of coronary artery stent placement May chronic History of loop recorder May 05, 2019 chronic Hyperlipidemia chronic Paroxysmal atrial fibrillation [facility] Work Phone: 1(956) 710-788410-19-2012 Evaluation note* Diagnosis Onset Date Resolution Status Aortic regurgitation acute Essential (primary) hypertension chronic History of coronary artery stent placement May chronic Hyperlipidemia chronic Paroxysmal atrial fibrillation [facility] Work Phone: [phone]) 715-513710-19-2012 Evaluation note* Diagnosis Onset Date Resolution Status Aortic regurgitation acute Essential (primary) hypertension chronic History of coronary artery stent placement May chronic History of loop recorder May 05, 2019 chronic Hyperlipidemia chronic Paroxysmal atrial fibrillation [facility] Work Phone: [phone]) 465-648210-19-2012 Evaluation note* Diagnosis Onset Date Resolution Status Aortic regurgitation acute Fatigue acute Essential (primary) hypertension chronic History of coronary artery stent placement May chronic History of loop recorder May 05, 2019 chronic Hyperlipidemia chronic Paroxysmal atrial fibrillation [facility] Work Phone: [phone]) 924-202710-19-2012 Evaluation note* Diagnosis Onset Date Resolution Status Admit Date Aortic regurgitation acute Octo 2024 2:43pm Essential (primary) hypertension chronic May 25 2:43pm History of coronary artery stent placement May 31, 2012 chronic May 25, 2025 2:43pm History of loop recorder May 05, 2019 c hronic May 25, 2025 2:43pm Hyperlipidemia chronic May 252024 2:43pm Paroxysmal atrial fibrillation chronic May 25 2:43pm [facility] Work Phone: Discharge summary Author Britt Guthrie [facility] Note Date/Time November 29, 2024 7:4 8am [facility] Medical Records Department [address] [place] [address] [facility] MR#: [id number] Acct: [id number] Name: RADHA MAYERS Rep #:[id number] : 1935 89 From: Britt Guthrie MD PCP: Dr. Rehan Lucero, DO Status:ADM SUZIE Certification of patient admission REQUIRED AT TIME OF ADMISSION. I CERTIFY THAT POST-HOSPITAL ECF SERVICES ARE REQUIRED TO BE GIVEN ON AN IN-PATIENT BASIS BECAUSE OF THE ABOVE NAMED PATIENT'S NEED FOR JAIL CARE ON A CONTINUING BASIS FOR THE CONDITION(S) FOR WHICH HE/SHE WAS RECEIVING IN-PATIENT HOSPITAL SERVICES PRIOR TO HIS/HER TRANSFER TO THE ECF. 11/29/24 0748<Electronically signed by Britt Guthrie MD> Diet Diet Order/Speech Therapy: 11/27/24 22:31 Diet: Regular - General Food consistency:: Regular Liquid Consistency:: Regular/Thin Routine Orders/Code Status Enema Type: Fleetz Enema Frequency: Daily PRN Suppository Type: Dulcolax 10mg Suppository Frequency: Daily PRN DC O2, CPAP, BIPAP needs Home O2 Discharge instructions: No Wound(s) left lat wrist: Wound Type: Laceration Therapies Weight Bearing: Weight bearing as tolerated Physical Therapy: Eval and Treat Occupational Therapy: Eval and Treat Problem/Diagnosis (1) Closed fracture of left clavicle: Status: Acute Code(s): S42.002A - Fracture of unspecified part of left clavicle, initial encounter for closed fracture (2) Fall: Status: Acute Code(s): W19.XXXA - Unspecified fall, initial encounter Plan #Debility and weakness due to left clavicular fracture and recent left patellar fracture * Admitted with a complaint of mechanical fall. Imaging done showed acute comminuted inferiorly displaced fracture of the distal left clavicle. * PT/OT on board. * On PO tylenol, tramadol and ibuprofen prn as well as IV morphine. * fall precautions * #Left patellar fracture * recently had left patellar fracture * left knee brace in place. * PT/OT on board * fall precautions * #Paroxysmal afib: on lopressor. Not anticoagulated due to frequent falls. #History of CAD s/p stents: on aspirin. #Depression; on sertraline #GERD: on PPI #Hypothyroidism: on synthroid DVT prophylaxis: lovenox DIsposition: will benefit from placement. PT/OT On board. Allergies/Procedures Done in Hospital Allergies atorvastatin (From Lipitor) Adverse Reaction (Verified 11/27/24 17:55) myalgia oxycodone (From Percocet) Adverse Reaction (Verified 11/27/24 17:55) Unknown propoxyphene (From Darvocet-N 100) Adverse Reaction (Verified 11/27/24 17:55) Unknown Procedures: None Type of Care/Length of Stay Estimated LOS: Convalescent Care Less Than 30 days Type of Care Needed: Skilled Rehab Potential: Fair Prognosis: Fair Additional Orders/Day of Discharge Day of Discharge: 11/29/24 Discharge Plan Admission Admit Date/Time: 11/27/24 21:37 Primary Reason for Your Visit: mechanical fall with fractured clavicle Attending Provider: Britt Guthrie Primary Care Provider: Rehan Lucero Consulting Providers: Aguilar Gale Instructions Patient Instructions: ED Fracture, Clavicle Discharge Orders/Prescriptions Prescriptions: New tramadol 50 mg tablet 50 mg PO Q8H PRN (Reason: pain) 5 Days Qty: 15 0RF Continued aspirin [Adult Aspirin Regimen] 81 mg tablet,delayed release (DR/EC) 81 mg PO DAILY sertraline 50 mg tablet 50 mg PO DAILY loperamide [Imodium A-D] 2 mg capsule 2 mg PO Q6H PRN (Reason: Diarrhea) gabapentin 100 mg capsule 100 mg PO DAILY Rx Instructions: qod nitroglycerin 0.4 mg tablet, sublingual 0.4 mg SUBLINGUAL Q5-15M Qty: 30 0RF ibuprofen 400 mg tablet 400 mg PO TID PRN (Reason: pain) Prolia 60 mg/mL syringe 60 mg subcut [id number] pantoprazole 40 mg tablet,delayed release (DR/EC) 40 mg PO DAILY Patient Comments: TAKE 1 TABLET BY MOUTH EVERY MORNING BEFORE MEALS levothyroxine 100 mcg tablet 100 mcg PO DAILY metoprolol tartrate 25 mg tablet 25 mg PO BID Qty: 180 3RF amlodipine 5 mg tablet 5 mg PO DAILY Qty: 90 3RF spironolactone 25 mg tablet 25 mg PO DAILY Qty: 90 3RF Discontinued tramadol 50 mg tablet 25 - 50 mg PO TID PRN PRN (Reason: pain) Referrals / Follow Up: Rehan Lucero DO [Primary Care Provider] - Within 1 Week Disposition Disposition (needs filled in before D/C Order can be placed): [facility] 11/29/24 0748 <Electronically signed by Britt Guthrie MD> Cosigner Signature (if applicable): CC: Dr. Aguilar Gale DO; Dr. Rehan uLcero DO ~ [facility] Work Phone: Evaluation + Plan note Future Appointments Appointment Date:12/20/2021 01:30:00 PM Scheduled Provider:REHAN LUCERO DO Location:[facility] Appointment Type:[facility] Future Scheduled Tests Radiology* BD Bone Density DEXA Axial Skeleton 06/21/21 [facility] Evaluation + Plan note Future Appointments Appointment Date:12/20/2021 01:30:00 PM Scheduled Provider:REHAN LUCERO DO Location:[facility] Appointment Type:[facility] Evaluation + Plan note Future Appointments Appointment Date:08/16/2021 04:30:00 PM Scheduled Provider:REHAN LUCERO DO Location:[facility] Appointment Type:[facility] ED Follow Up Appointment Date:12/20/2021 01:30:00 PM Scheduled Provider:REHAN LUCERO DO Location:[facility] Appointment Type:[facility] Evaluation + Plan note Future Appointments Appointment Date:09/06/2021 05:00:00 PM Scheduled Provider:CT DAWN DO Location:[facility] Appointment Type:PC OV Follow Up Appointment Date:12/20/2021 01:30:00 PM Scheduled Provider:REHAN LUCERO DO Location:[facility] Appointment Type:[facility] OV Future Scheduled Tests Radiology* XR Chest 2 Views (PA & Lateral) 08/26/21 [facility] Evaluation + Plan note Future Appointments Appointment Date:09/06/2021 05:00:00 PM Scheduled Provider:CT DAWN DO Location:[facility] Appointment Type:PC OV Follow Up Appointment Date:12/20/2021 01:30:00 PM Scheduled Provider:REHAN LUCERO DO Location:[facility] Appointment Type:[facility] OV Future Scheduled Tests Laboratory* Basic Metabolic Panel 09/02/21 Radiology* XR Chest 2 Views (PA & Lateral) 08/26/21 [facility] Evaluation + Plan note Future Appointments Appointment Date:09/28/2021 01:00:00 PM Scheduled Provider:REHAN LUCERO DO Location:[facility] Appointment Type:PC OV Appointment Date:12/20/2021 01:30:00 PM Scheduled Provider:REHAN LUCERO DO Location:[facility] Appointment Type:PC OV Future Scheduled Tests Radiology* XR Chest 2 Views (PA & Lateral) 08/26/21 [facility] Evaluation + Plan note Future Appointments Appointment Date:06/19/2022 02:45:00 PM Scheduled Provider:REHAN LUCERO DO Location:[facility] Appointment Type:PC OV Future Scheduled Tests Radiology* XR Chest 2 Views (PA & Lateral) 08/26/21 [facility] Evaluation + Plan note Future Appointments Appointment Date:06/19/2022 02:45:00 PM Scheduled Provider:REHAN LUCERO DO Location:[facility] Appointment Type:PC OV Future Scheduled Tests Radiology* XR Chest 2 Views (PA & Lateral) 08/26/21 * XR Spine Cervical AP/LAT 02/22/22 [facility] Evaluation + Plan note Future Appointments Appointment Date:07/25/2022 01:30:00 PM Scheduled Provider:REHAN LUCERO DO Location:[facility] Appointment Type:PC OV Future Scheduled Tests Radiology* XR Chest 2 Views (PA & Lateral) 08/26/21 * XR Spine Cervical AP/LAT 02/22/22 [facility] Evaluation + Plan note Future Appointments Appointment Date:01/25/2023 02:00:00 PM Scheduled Provider:REHAN LUCERO DO Location:[facility] Appointment Type:PC OV Future Scheduled Tests Radiology* XR Spine Cervical AP/LAT 02/22/22 [facility] Evaluation + Plan note Future Appointments Appointment Date:05/18/2023 03:00:00 PM Scheduled Provider:REBECA GARDINER Location:[facility] Appointment Type:PC OV Appointment Date:07/24/2023 02:00:00 PM Scheduled Provider:REHAN LUCERO DO Location:[facility] Appointment Type:PC OV Follow Up Future Scheduled Tests Laboratory* Potassium Level 05/11/23 [facility] Evaluation + Plan note Future Appointments Appointment Date:05/18/2023 03:00:00 PM Scheduled Provider:REBECA GARDINER Location:[facility] Appointment Type:PC OV Appointment Date:07/24/2023 02:00:00 PM Scheduled Provider:REHAN LUCERO DO Location:[facility] Appointment Type:PC OV Follow Up [facility] Evaluation + Plan note Future Appointments Appointment Date:07/31/2023 11:30:00 AM Scheduled Provider:REHAN LUCERO DO Location:[facility] Appointment Type:PC OV Follow Up [facility] Evaluation + Plan note Future Appointments Appointment Date:01/29/2024 11:30:00 AM Scheduled Provider:REHAN LUCERO DO Location:[facility] Appointment Type:PC OV Follow Up [facility] Evaluation + Plan note Future Appointments Appointment Date:07/29/2024 11:30:00 AM Scheduled Provider:REHAN LUCERO DO Location:[facility] Appointment Type:PC OV [facility] Evaluation + Plan note Future Appointments Appointment Date:03/19/2025 12:40:00 PM Scheduled Provider:STEPHANIE ESPITIA DO Location:[facility] Appointment Type:PC OV Future Scheduled Tests Laboratory* Thyroid Stimulating Hormone 07/29/24 * Lipid Profile 07/29/24 * Albumin/Creatinine Ratio, Random Urine 07/29/24 * Complete Metabolic Panel 07/29/24 [facility] Evaluation + Plan note Future Appointments Appointment Date:06/19/2025 03:00:00 PM Scheduled Provider:STEPHANIE ESPITIA DO Location:[facility] Appointment Type:[facility] Medicare Future Scheduled Tests Laboratory* Thyroid Stimulating Hormone 07/29/24 * Lipid Profile 07/29/24 * Albumin/Creatinine Ratio, Random Urine 07/29/24 * Complete Metabolic Panel 07/29/24 [facility] Evaluation noteNo assessment information available [facility] Work Phone: Hospital course Narrative No data available for this section [facility] Hospital Discharge instructions No data available for this section [facility] Progress note No data available for this section [facility] Reason for referral (narrative)No reason for referral information available[facility] Work Phone: Summary Purpose Family History Relationship Condition Age at Onset Recorded Date/T marina father Cardiac disease Unknown Coronary artery disease Unknown mother Cardiac disease Unknown Diabetes mellitus Unknown Cerebrovascular accident (CVA) Unknown Advance Directives Advance Directive Response Recorded Date/ Time Advance Directives Yes April 7:07am Living Will No January 10, 2021 4 :36pm Power of Soda Clerk No January 10, 2021 4:36pm Advance Directive Response Recorded Date/ Time Advance Directives on File Yes October 30, 2022 7:05am Name of Medical Power of Soda Clerk Juli Costa- Daughter October 30, 2022 7:05am Advance Directives Yes October 30, 023 7:05am Living Will Yes October 30, 2022 7:05am Power of Soda Clerk Yes October 30 7:05am Advance Directive Response Recorded Date/ Time Advance Directives on File Yes October 30, 2022 7:05am Name of Medical Power of Soda Clerk Juli Costa- Daughter October 30, 2022 7:05am Advance Directives Yes October 30 023 7:05am Living Will No January 02, 2023 1 0:28pm Power of Soda Clerk No January 02, 2023 10:28pm Advance Directive Response Recorded Date/ Time Advance Directives Yes October 30 7:05am Living Will No January 02, 2023 1 0:28pm Power of Soda Clerk No January 02, 2023 10:28pm Advance Directive Response Recorded Date/ Time Advance Directives Yes October 30 023 7:05am Living Will Yes November 27, 2023 8:22am Power of Soda Clerk Yes November 26 8:22am Name of Medical Power of Soda Clerk DAUGHTER November 27, 2023 8:22am Advance Directive Response Recorded Date/ Time Name of Medical Power of Soda Clerk DAUGHTER November 27, 2023 8:22am Advance Directives Yes October 30 023 7:05am Living Will Yes November 27, 2023 8:22am Power of Soda Clerk Yes November 26 8:22am Advance Directive Response Recorded Date/ Time Living Will Yes October 06 12:10am Do you have a Healthcare Pow er of Soda Clerk? Yes October 06, 2024 12:10am Name of Medical Power of Soda Clerk Shin Costa October 06, 2024 12:10am Living Will Yes October 06 2:19pm Do you have a Healthcare Pow er of Soda Clerk? Yes October 06, 2024 2:19pm Name of Medical Power of Soda Clerk daughter October 06, 2024 2:19pm Advance Directives Yes October 30 7:05am Advance Directive Response Recorded Date/ Time Living Will Yes February 17, 2024 2 :12pm Do you have a Healthcare Power of Soda Clerk? Yes February 17, 2024 2:12pm Living Will Yes October 06 025 12:10am Do you have a Healthcare Power of Soda Clerk? Yes October 06, 2024 12:10am Name of Medical Power of Soda Clerk Shin Joinersharlalaura October 06, 2024 12:10am Living Will Yes October 06 025 2:19pm Do you have a Healthcare Power of Soda Clerk? Yes October 06, 2024 2:19pm Name of Medical Power of Soda Clerk daughter October 06, 2024 2:19pm Living Will Yes November 27, 2024 5:56pm Do you have a Healthcare Power of Soda Clerk? Yes November 27, 2024 5:56pm Name of Medical Power of Soda Clerk Otoniel Burks and Juli Costa November 27, 2024 5:56pm Advance Directives Yes October 30 023 7:05am Advance Directive Response Recorded Date/ Time Living Will Yes February 17, 2024 2 :12pm Do you have a Healthcare Power of Soda Clerk? Yes February 17, 2024 2:12pm Living Will Yes October 06 12:10am Do you have a Healthcare Power of Soda Clerk? Yes October 06, 2024 12:10am Name of Medical Power of Soda Clerk Shin Costa October 06, 2024 12:10am Living Will Yes October 06 025 2:19pm Do you have a Healthcare Power of Soda Clerk? Yes October 06, 2024 2:19pm Name of Medical Power of Soda Clerk daughter October 06, 2024 2:19pm Living Will Yes November 27, 2024 10:41pm Do you have a Healthcare Power of Soda Clerk? Yes November 27, 2024 10:41pm Name of Medical Power of Soda Clerk Otoniel Burks and Juli Costa November 27, 2024 10:41pm Advance Directives Yes October 30 023 7:05am Advance Directive Response Recorded Date/ Time Advance Directives Yes October 30 023 7:05am Chief Complaint and Reason for Visit Chief Complaint Remote ILR f/u 6 M FU xray Reason for Visit History of loop yuan rder Paroxysmal atrial fibrillation Syncope Atherosclerosis of coronary artery of [place] heart without angina pectoris Chronic combined systolic and diastolic CHF (congestive heart failure) Essential (primary) hypertension History of loop recorder Hyperlipidemia Paroxysmal atrial fibrillation Chief Complaint 3 mos remote ILR f/u DIARRHEA 1 Y FU Reason for Visit History of loop yuan rder Paroxysmal atrial fibrillation Syncope Aortic regurgitation Essential (primary) hypertension History of coronary artery stent placement Hyperlipidemia Paroxysmal atrial fibrillation Chief Complaint DIARRHEA 1 Y FU MURMUR Reason for Visit Aortic regurgitation Essential (primary) hypertension History of coronary artery stent placement Hyperlipidemia Paroxysmal atrial fibrillation Chief Complaint 3 mos remote ILR f/u REMOTE CHECK 6 M FU PAROXYSMAL ATRIAL FIBRILLATION Reason for Visit (HFpEF) heart failur e with preserved ejection fraction History of loop recorder Paroxysmal atrial fibrillation (HFpEF) heart failure with preserved ejection fraction History of loop recorder Paroxysmal atrial fibrillation Aortic regurgitation Essential (primary) hypertension History of coronary artery stent placement History of loop recorder Hyperlipidemia Paroxysmal atrial fibrillation Chief Complaint REMOTE CHECK REMOTE CHECK 6 M FU PAROXYSMAL ATRIAL FIBRILLATION 6-8 WK F/U chest pain E-ORDER Reason for Visit (HFpEF) heart failur e with preserved ejection fraction History of loop recorder Paroxysmal atrial fibrillation Aortic regurgitation Essential (primary) hypertension History of coronary artery stent placement History of loop recorder Hyperlipidemia Paroxysmal atrial fibrillation Aortic regurgitation Essential (primary) hypertension History of coronary artery stent placement History of loop recorder Hyperlipidemia Paroxysmal atrial fibrillation Chief Complaint 6-8 WK F/U chest pain E-ORDER THIRACIC ARTHRAPATHY Reason for Visit Aortic regurgitation Essential (primary) hypertension History of coronary artery stent placement History of loop recorder Hyperlipidemia Paroxysmal atrial fibrillation Chief Complaint fall Chief Complaint fall 6 M FU INT LABS EORDER Reason for Visit Aortic regurgitation Fatigue Essential (primary) hypertension History of coronary artery stent placement History of loop recorder Hyperlipidemia Paroxysmal atrial fibrillation Chief Complaint Admit Date Fall October 05, 2024 11:02pm General illness October 06, 2024 1:04pm LABWORK October 08, 2024 5:22am Chief Complaint Admit Date Fall October 05, 2024 11:02pm General illness October 06, 2024 1:04pm LABWORK October 08, 2024 5:22am 6 M FU November 26, 2024 2:1 3pm FALL W. CLAV[facility] FRACTURE [facility] DEBILITY Apr 2024 9:37pm Reason for Visit Admit Date Aortic regurgitation November 26, 2024 2: 13pm Essential (primary) hypertension November 112024 2:13pm History of coronary artery stent placeme nt November 26, 2024 2:13pm History of loop recorder November 26 2:13pm Hyperlipidemia November 26, 2024 2:1 3pm Paroxysmal atrial fibrillation November 2:13pm Closed fracture of left clavicle November 112024 9:37pm Fall November 27, 2024 9:3 7pm Immobility November 27, 2024 9:3 7pm Chief Complaint Admit Date Fall October 05, 2024 11:02pm General illness October 06, 2024 1:04pm LABWORK October 08, 2024 5:22am 6 M FU November 26, 2024 2:1 3pm FALL W. CLAVIC[facility] FRACTURE & DEBILITY Apr 2024 9:37pm FALL W. CLAV[facility] FRACTURE [facility] DEBILITY Apr 2024 1:17pm FALL W. CLAVICLE FRACTURE & DEBILITY Apr 2024 7:46am Chief Complaint Admit Date Fall October 05, 2024 11:02pm General illness October 06, 2024 1:04pm LABWORK October 08, 2024 5:22am 6 M FU November 26, 2024 2:1 3pm FALL W. [facility]RACTURE [facility] DEBILITY Apr 2024 9:37pm FALL W. CLAVICLE FRACTURE & DEBILITY Apr 2024 1:17pm FALL W. CLAVICLE FRACTURE & DEBILITY Apr 2024 7:46am JAIL LAB WORK December 01, 2024 5 :00am Chief Complaint Admit Date 6 M FU May 25, 2025 2 :43pm Reason for Visit Admit Date Aortic regurgitation May 25, 2025 2:43pm Essential (primary) hypertension May 25, 2025 2:43pm History of coronary artery stent placeme nt May 25, 2025 2:43pm History of loop recorder May 25, 2 025 2:43pm Hyperlipidemia May 25, 2025 2 :43pm Paroxysmal atrial fibrillation May 132024 2:43pm Additional Source Comments INFORMATION SOURCE (unrecogn ized section and content) DATE CREATED AUTHOR 02/18/2021 [facility] DATE CREATED AUTHOR AUTHOR'S ORGANIZ ATION 02/11/2024 [facility] ([place]) DATE CREATED AUTHOR AUTHOR'S ORGANIZ ATION 03/25/2025 [facility] DATE CREATED AUTHOR AUTHOR'S ORGANIZ ATION 05/26/2025 [facility] Goals (unrecognized section and content) Goals may be documented in a n alternate section Care Team (unrecognized sect ion and content) Care Team Personnel Name: Desean Ryan Clerk Stephanie PT Position: P3 Scheduling - Action Finisher Advanced Member Role: Other Name: REHAN LUCERO DO Position: P4 Physician - Primary Care Med Service: Active Provider Member Role: Primary Care Physician Address: Address: [address] [place] [address] Care Team Related Persons Name: LUZ COSTA Name: OTONIEL BURKS Name: DAVE BURKS Name: DAVE BURKS Care Team Personnel Name: Desean Ryan Clerk Stephanie PT Position: P3 Scheduling - Action Finisher Advanced Member Role: Other Name: REHAN LUCERO DO Position: P4 Physician - Primary Care Med Service: Active Provider Member Role: Primary Care Physician Address: Address: [address] [place] [address] Care Team Related Persons Name: LUZ COSTA Name: OTONIEL BURKS Name: DAVE BURKS Name: DAVE BURKS Care Team Personnel Name: Connor Hot Mill Supervisor Stephanie PT Position: P3 Scheduling - Action Finisher Advanced Member Role: Other Name: REHAN LUCERO DO Position: P4 Physician - Primary Care Med Service: Active Provider Member Role: Primary Care Physician Address: Address: [address] [place] [address] Care Team Related Persons Name: LUZ COSTA Name: OTONIEL BURKS Name: DAVE BURKS Name: DAVE BURKS Care Team Personnel Name: Connor Hot Mill Supervisor Stephanie PT Position: P3 Scheduling - Action Finisher Advanced Member Role: Other Name: REHAN LUCERO DO Position: P4 Physician - Primary Care Med Service: Active Provider Member Role: Primary Care Physician Address: Address: [address] [place] [address] Care Team Related Persons Name: LUZ COSTA Name: OTONIEL BURKS Name: DAVE BURKS Name: TRISTON BURKSMY Care Team Personnel Name: Connor, Hot Mill Supervisor Stephanie PT Position: P3 Scheduling - Action Finisher Advanced Member Role: Other Name: REHAN LUCERO DO Position: P4 Physician - Primary Care Member Role: Primary Care Physician Address: Address: [address] [place] [address] Care Team Related Persons Name: LUZ COSTA Name: OTONIEL BURKS Name: DAVE BURKS Name: DAVE BURKS Care Team Personnel Name: Connor, Hot Mill Supervisor Stephanie PT Position: P3 Scheduling - Action Finisher Advanced Member Role: Other Name: REHAN LUCERO DO Position: P4 Physician - Primary Care Member Role: Primary Care Physician Address: Address: [address] [place] [address] Name: MARITZA PAIGE MD Position: ED Physician Address: Address: [facility] [address] [place] [id number] Name: AGUSTINA MILES DO Position: ED Physician Member Role: Attending Physician Address: Address: [facility] [address] [place] [id number] Care Team Related Persons Name: LUZ COSTA Name: OTONIEL BURKS Name: DAVE BURKS Name: DAVE BURKS Care Team Personnel Name: Connor, Hot Mill Supervisor Stephanie PT Position: P3 Scheduling - Action Finisher Advanced Member Role: Other Name: REHAN LUCERO DO Position: P4 Physician - Primary Care Member Role: Primary Care Physician Address: Address: [address] [place] [address] Care Team Related Persons Name: LUZ COSTA Name: OTONIEL BURKS Name: DAEV BURKS Name: DAVE BURKS Care Teams (unrecognized sec tion and content) Team Status: Active Member Role Status Dates Dr. Rehan Lucero DO Family Provider Active Dr. Rehan Lucero DO Primary Care Provider Active Team Status: Inactive Member Role Status Dates Dr. Rehan Lucero DO Primary Care Provider, Referri ng Provider Active Autumn Haas DIESEL POWER SHOVEL OPERATOR, DIESEL POWER SHOVEL OPERATOR-C Attending Provider Active Team Status: Inactive Member Role Status Dates Dr. Rehan Lucero DO Primary Care Provider, Referri ng Provider Active Mckenzie Ha Attending Provider Active Team Status: Inactive Member Role Status Dates Dr. Rehan Lucero DO Primary Care Provider Active Dr. Aakash Springer MD Attending Provider, Referring Pro vider Active Team Status: Active Member Role Status Dates Dr. Rehan Lucero DO Primary Care Provider Active Dr. Aakash Springer MD Attending Provider, Referring Pro vider Active Team Status: Inactive Member Role Status Dates Dr. Rehan Lucero DO Primary Care Provider Active Dr. Saji Neff MD Attending Provider, Emergency Pro vider Active Team Status: Inactive Member Role Status Dates Dr. Rehan Lucero DO Primary Care Provider Active Scottie Kim NP, DIESEL POWER SHOVEL OPERATOR-C Attending Provider Active Dr. Diana Valera , Other Provider Active Team Status: Inactive Member Role Status Dates Dr. Rehan Lucero DO Primary Care Provider Active Ayala Stock DIESEL POWER SHOVEL OPERATOR-C Attending Provider Active Team Status: Inactive Member Role Status Dates Dr. Rehan Lucero DO Primary Care Provider Active Dr. Braydon Nathan DO Emergency Provider Active Team Status: Active Member Role Status Dates Dr. Rehan Lucero DO Primary Care Provider Active Autumn Haas DIESEL POWER SHOVEL OPERATOR, DIESEL POWER SHOVEL OPERATOR-C Attending Provider, Referring P rovider Active Team Status: Inactive Member Role Status Dates Dr. Rehan Lucero DO Primary Care Provider Active Dr. Braydon Nathan DO Attending Provider, Emergency P rovider Active Team Status: Inactive Member Role Status Dates Dr. Rehan Lucero DO Primary Care Provider Active Autumn Haas DIESEL POWER SHOVEL OPERATOR, DIESEL POWER SHOVEL OPERATOR-C Attending Provider, Referring P rovider Active Team Status: Active Member Role Status Dates Dr. Rehan Lucero DO Primary Care Provider Active Team Status: Inactive Member Role Status Dates Dr. Rehan Lucero DO Primary Care Provider Active Start: October 05, 2024 End: October 06, 2024 Dr. Benito Romero DO Attending Provider Active Start : October 05, 2024 End: October 06, 2024 Dr. Benito Romero DO Emergency Provider Active Start : October 05, 2024 End: October 06, 2024 Team Status: Inactive Member Role Status Dates Dr. Rehan Lucero DO Primary Care Provider Active Start: October 06, 2024 End: October 06, 2024 Dr. Braydon Nathan DO Attending Provider Active Start: October 06, 2024 End: October 06, 2024 Dr. Braydon Nathan DO Emergency Provider Active Start: October 06, 2024 End: October 06, 2024 Team Status: Inactive Member Role Status Dates Dr. Rehan Lucero DO Primary Care Provider Active Start: October 08, 2024 End: October 08, 2024 Jamir Fco BARDALES MD Attending Provider Active S tart: October 08, 2024 End: October 08, 2024 Team Status: Inactive Member Role Status Dates Dr. Rehan Lucero DO Primary Care Provider Active Start: November 26, 2024 End: November 26, 2024 Dr. Rehan Lucero DO Referring Provider Active Start: November 26, 2024 End: November 26, 2024 Renee Cole PA, PA Attending Provider Active Start: November 26, 2024 End: November 26, 2024 Team Status: Active Member Role Status Dates Dr. Rehan Lucero DO Primary Care Provider Active Start: November 27, 2024 Albin Plummer MD Emergency Provider Active Star t: November 27, 2024 Dr. Aguilar Gale DO Admit Provider Active Start: November 27, 2024 Dr. Aguilar Gale DO Attending Provider Active Start: November 27, 2024 Team Status: Inactive Member Role Status Dates Dr. Rehan Lucero DO Primary Care Provider Active Start: November 27, 2024 End: November 29, 2024 Albin Plummer MD Emergency Provider Active Star t: November 27, 2024 End: November 29, 2024 Dr. Aguilar Gale DO Admit Provider Active Start: November 27, 2024 End: November 29, 2024 Dr. Aguilar Gale DO Other Provider Active Start: November 27, 2024 End: November 29, 2024 Dr. Britt Guthrie MD Attending Provider Active Start: November 27, 2024 End: November 29, 2024 Team Status: Active Member Role Status Dates Dr. Rehan Lucero DO Primary Care Provider Active Start: November 28, 2024 Albin Plummer MD Emergency Provider Active Star t: November 28, 2024 Dr. Aguilar Gale DO Admit Provider Active Start: November 28, 2024 Dr. Aguilar Gale DO Other Provider Active Start: November 28, 2024 Dr. Britt Guthrie MD Attending Provider Active Start: November 28, 2024 Dr. Britt Guthrie MD Other Provider Active St art: November 28, 2024 Team Status: Active Member Role Status Dates Dr. Rehan Lucero DO Primary Care Provider Active Start: November 29, 2024 Albin Plummer MD Emergency Provider Active Star t: November 29, 2024 Dr. Aguilar Gale DO Admit Provider Active Start: November 29, 2024 Dr. Aguilar Gale DO Other Provider Active Start: November 29, 2024 Dr. Britt Guthrie MD Attending Provider Active Start: November 29, 2024 Dr. Britt Guthrie MD Other Provider Active St art: November 29, 2024 Team Status: Inactive Member Role Status Dates Dr. Rehan Lucero DO Primary Care Provider Active Start: December 01, 2024 End: December 01, 2024 Jamir Fco BARDALES MD Attending Provider Active S tart: December 01, 2024 End: December 01, 2024 Team Status: Active Member Role/Relationship Status Dates Dr. Stephanie Espitia DO Primary care physician Active Team Status: Inactive Member Role/Relationship Status Dates Dr. Rehan Lucero DO Referring Provider Active Start: May 25, 2025 End: May 25, 2025 Scottie Kim NP, DIESEL POWER SHOVEL OPERATOR-C Attending physician Active Start: May 25, 2025 End: May 25, 2025 Dr. Stephanie Espitia DO Primary care physician Active Start: May 25, 2025 End: May 25, 2025 FOR RECORDS PERTAINING TO PATIENTS WHO ARE OR HAVE BEEN ENROLLED IN A CHEMICAL DEPENDENCY/SUBSTANCEABUSE PROGRAM, SOME INFORMATION MAY BE OMITTED. This clinical summary was aggregated from multiple sources. Caution should be exercised in using it in the provision of clinical care. This summary normalizes information from multiple sources, and as a consequence, information in this document may materially change the coding, format and clinical context of patient data. In addition, data may be omitted in some cases. CLINICAL DECISIONS SHOULD BE BASED ON THE PRIMARY CLINICAL RECORDS. [employer] [facility]. provides no warranty or guarantee of the accuracy or completeness of information in this document.
--- NOTE | 2025-08-02 18:40 | CT_ITS ---
PROCEDURE: SPINE CERVICAL WITHOUT CONTRAS 08/02/2025 REASON FOR EXAM: FALL TECHNIQUE: Procedure Code: CTSPC Modality: CT Procedure: SPINE CERVICAL WITHOUT CONTRAS Coronal and Sagittal reconstruction series were provided. One or more dose reduction techniques were used (e.g., Automated exposure control, adjustment of the mA and/or kV according to patient size, use of iterative reconstruction technique. RADIATION DOSE SUMMARY: DLP: 720 mGycm COMPARISON: None FINDINGS: No acute compression deformity, fracture, or subluxation. Extensive multilevel degenerative changes with moderate multilevel central canal stenosis and foraminal stenosis due to posterior disc-osteophyte complex, facet hypertrophy, and uncovertebral hypertrophy. No high-grade central canal stenosis. The prevertebral soft tissues are not thickened. Thyroid is unremarkable. Limited sections of the lung apices demonstrate no pneumothorax. CT/Spine Cervical without Contras IMPRESSION: No acute cervical fracture or subluxations. Extensive multilevel degenerative changes of the cervical spine as above. Reading Location: [id number]
--- NOTE | 2025-08-02 18:40 | RAD_ITS ---
PROCEDURE: ELBOW MIN 3 VIEWS 08/02/2025 REASON FOR EXAM: FALL TECHNIQUE: Procedure Code: RADEL Modality: DX Procedure: ELBOW MIN 3 VIEWS Laterality: FINDINGS: No evidence of acute fracture or dislocation. Small olecranon enthesophyte. No elbow joint effusion. RAD/Elbow min 3 Views IMPRESSION: No acute osseous abnormalities. Osteoarthrosis. Reading Location: [facility]
--- NOTE | 2025-08-02 18:40 | RAD_ITS ---
PROCEDURE: CHEST 1 VIEW (PORTABLE) 08/02/2025 REASON FOR EXAM: FALL. HTN TECHNIQUE: Frontal view of the chest. COMPARISON: 10/06/2024. FINDINGS: The heart appears enlarged which may be due to cardiomegaly or AP technique. A hiatal hernia is present. Right lung scattered scarring. RAD/Chest 1 View (Portable) IMPRESSION: Pulmonary findings as above. Reading Location[facility]
--- NOTE | 2025-08-02 18:40 | CT_ITS ---
PROCEDURE: BRAIN/HEAD WITHOUT CONTRAST 08/02/2025 REASON FOR EXAM: HEAD INJURY, SYNCOPE TECHNIQUE: Procedure Code: CTBR Modality: CT Procedure: BRAIN/HEAD WITHOUT CONTRAST Coronal and Sagittal reconstruction series were provided. One or more dose reduction techniques were used (e.g., Automated exposure control, adjustment of the mA and/or kV according to patient size, use of iterative reconstruction technique. RADIATION DOSE SUMMARY: DLP: 948 mGycm COMPARISON: None FINDINGS: There is no acute infarct, intracranial hemorrhage, or mass effect. There is no hydrocephalus or significant midline shift. There is severe chronic microvascular ischemic changes and severe parenchymal volume loss. No acute, depressed calvarial fractures. Moderate left anterior frontal scalp contusion. The paranasal sinuses are clear. CT/Brain/Head without Contrast IMPRESSION: No acute intracranial process. Reading Location: [id number]
[2025-08-02 18:57] LABS: Troponin T High Sensitivity 11 ng/L (<=14)
[2025-08-02] MEDS: 0.9% Normal Saline (1000mL) 1,000 ML 150 ML IV (19:05)
[2025-08-02 19:31] LABS: Mucous, Urine 0 SEEN /hpf (<or=2+); Red Blood Cells-Urine 0 SEEN /hpf (0-5)
[2025-08-02 19:36] LABS: Color, Urine Yellow (Yellow); Glucose, Dipstick Normal (Normal); Ketone-Dipstick Negative (Negative); Leukocyte Esterase-Dipstick 100 /ul (Negative); Nitrite-Dipstick Positive (Negative); Occult Blood-Urine 25 /ul (Negative); Protein-Dipstick 30 mg/dl (Negative); Specific Gravity, Urine 1.015 (1.002-1.030); Urine Bilirubin Dipstick Negative (Negative)
[2025-08-02 19:37] VITALS: BP 154/82; PULSE 84; RESP 23; O2SAT 100
[2025-08-02 19:50] VITALS: BP 154/82; BP 162/89; BP 172/95; PULSE 89; PULSE 92; PULSE 97
[2025-08-02 19:51] LABS: Anion Gap 13 (5-15); BUN 19 mg/dL (4-19); BUN/Creat Ratio 16.7 RATIO (10-20); Calcium,Total 7.7 mg/dL (7.6-11.0); Carbon Dioxide 18.7 mmol/L (21.0-32.0); Chloride 108 mmol/L (98-108); Estimated Creatinine Clearance 24.72 ml/min (50-250); Glucose 86 mg/dL (70-99); Potassium 4.8 mmol/L (3.3-5.1)
[2025-08-02 19:55] LABS: Squamous Epithelial Cells - UA 0-5 SEEN /hpf (5-10); Transitional Epithelial - Ur 0-5 SEEN /hpf (0-5)
--- NOTE | 2025-08-02 20:17 | HP.PCM.HOS_ITS ---
HPI - General General Date of Admission: 08/02/25 HPI Narrative DARRYL MAYERS, is a 89 F who presents to the hospital after syncopal episode at home. She had gotten up to go feed her dog when she felt shaky and lightheaded and dizzy. She did manage to get food in the bowl but then her daughter heard a thud in the kitchen and found her mother on the floor. She denies any chest pain or palpitations, and there is no history of seizures. In the emergency room orthostatic vital signs were unremarkable. She is afebrile without a leukocytosis, she does have positive nitrites and positive leukocyte esterase with a positive urine bacteria however she is asymptomatic therefore urine culture pending but no treatment has been initiated. [facility] Medical History (Reviewed 05/25/25 @ 15:08 by Scottie iKm [employer]) Immobility Closed fracture of left clavicle Fall (HFpEF) heart failure with preserved ejection fraction Osteoarthritis of hip (12/25/16) Chronic kidney disease (CKD) Weakness generalized COVID-19 (12/2020) EE (eosinophilic esophagitis) Paroxysmal atrial fibrillation Syncope (03/2019) Bilateral pleural effusion Chronic renal insufficiency Hiatal hernia Secondary pulmonary arterial hypertension Osteoarthritis Depression GERD (gastroesophageal reflux disease) Hypothyroidism Fibromyalgia Deep vein thrombosis (DVT) (04/2012) Atherosclerosis of coronary artery of [place] heart without angina pectoris Essential (primary) hypertension Hyperlipidemia Home Medications ?Medication ?Instructions ?Recorded ?Last Taken ?Type aspirin 81 mg tablet,delayed 81 mg PO DAILY blood thin ner 04/24/19 01/10/21 09:30 History release (Adult Aspirin Regimen) pantoprazole 40 mg tablet,delayed 40 mg PO DAILY gerd 01/10/21 10/30/22 History release loperamide 2 mg capsule (Imodium 2 mg PO Q6H PRN Diarr hea 04/18/22 Unknown History A-D) sertraline 50 mg tablet 50 mg PO DAILY mood 04/18/22 Unknown History gabapentin 100 mg capsule 100 mg PO DAILY pain 4 Unknown History levothyroxine 100 mcg tablet 100 mcg PO DAILY thyroid 02/17/24 Unknown History spironolactone 25 mg tablet 25 mg PO DAILY water pill #90 tabs 07/14/24 Unknown Rx denosumab 60 mg/mL subcutaneous 60 mg subcut [id number] [id number] 11/26/24 Unknown History syringe (Prolia) ibuprofen 400 mg tablet 400 mg PO TID PRN pain 11/26 Unknown History tramadol 50 mg tablet 50 mg PO Q8H PRN pain 5 days #15 11/29/24 Unknown Rx tabs metoprolol tartrate 25 mg tablet 25 mg PO BID heart #1 80 tabs 04/20/25 Unknown Rx amlodipine 5 mg tablet 2.5 mg PO BID bp 05/25/25 Un known History Allergy/AdvReac Type Severity Reaction Status Date / Time tramadol (From Ultram) AdvReac Mild Nausea Verified 08/02/25 17:40 atorvastatin (From Lipitor) AdvReac myalgia Verified 08/02/25 17:40 oxycodone (From Percocet) AdvReac Unknown Verified 08/02/25 17:40 propoxyphene (From AdvReac Unknown Verified 08/02/25 17:40 Darvocet-N 100) Family History Father Heart disease CAD (coronary artery disease) Mother Heart disease Diabetes CVA (cerebral vascular accident) CAD (coronary artery disease) Surgical History (Reviewed 05/25/25 @ 15:08 by Scottie Kim [employer]) History of loop recorder (05/05/19) History of thoracentesis History of appendectomy History of cataract surgery History of total knee arthroplasty History of bowel resection Hx of cholecystectomy History of left heart catheterization (03/23/17) History of hysterectomy History of spinal surgery History of hemiarthroplasty of left hip History of coronary artery stent placement (05/31/12) Social History household members: spouse housing: house Smoking Status: Never smoker alcohol intake: never substance use type: does not use ROS Constitutional Constitutional: Denies chills, fatigue, fever(s) or malaise Eyes Eyes: Denies blurry vision ENT HEENT: Denies headache(s) or nasal discharge Cardiovascular Cardiovascular: Reports syncope; Denies chest pain or dyspnea on exertion Respiratory/Chest Respiratory/Chest: Denies cough, shortness of breath at rest or shortness of breath with exertion Gastrointestinal Gastrointestinal: Denies constipation, diarrhea, nausea or vomiting Genitourinary Genitourinary: Denies dysuria Neurologic Neurologic: Denies focal weakness, numbness or tremor(s) Psychiatric Psychiatric: Denies anxiety or depression Patient's Goals Of Care . Unable to discuss care goals with the patient and or patient insurance account representative at this time: Yes Vital Signs Vital Signs Vital Signs: 08/02/25 17:37 08/02/25 18:02 08/02/25 18:05 Temperature 97.2 F L Temperature Source Temporal Pulse Rate 61 Pulse Rate [Lying] Pulse Rate [Sitting (for 1 minute prior to obtaining)] Pulse Rate [Standing (for 1 minute prior to obtaining)] Respiratory Rate 15 Respiratory Effort Normal Non-Labored Normal Non-Labored Respiratory Depth Normal Respiratory Pattern Normal Normal Blood Pressure 173/109 H Blood Pressure [Lying] Blood Pressure [Sitting (for 1 minute prior to obtaining)] Blood Pressure [Standing (for 1 minute prior to obtaining)] Blood Pressure Mean 130 Blood Pressure Mean [Lying] Blood Pressure Mean [Sitting (for 1 minute prior to obtaining)] Blood Pressure Mean [Standing (for 1 minute prior to obtaining)] Pulse Ox 95 Oxygen Delivery Method Room Air Room Air 08/02/25 19:37 08/02/25 19:50 Temperature Temperature Source Pulse Rate 84 Pulse Rate [Lying] 92 Pulse Rate [Sitting (for 1 minute prior to obtaining)] 89 Pulse Rate [Standing (for 1 minute prior to obtaining)] 97 Respiratory Rate 23 H Respiratory Effort Respiratory Depth Respiratory Pattern Blood Pressure 154/82 H Blood Pressure [Lying] 172/95 H Blood Pressure [Sitting (for 1 minute prior to obtaining)] 162/89 H Blood Pressure [Standing (for 1 minute prior to obtaining)] 154/82 H Blood Pressure Mean 106 Blood Pressure Mean [Lying] 120 Blood Pressure Mean [Sitting (for 1 minute prior to obtaining)] 113 Blood Pressure Mean [Standing (for 1 minute prior to obtaining)] 106 Pulse Ox 100 Oxygen Delivery Method Room Air Weight Weight: 109 lb 9.116 oz Body Mass Index (BMI) 22.1 Physical Exam Narrative General: Alert, Oriented x3, Cooperative, No apparent distress HEENT: Left forehead bruise, PERRLA, EOMI, Normocephalic Oral: Moist Mucosa Neck: Supple, No JVD Lungs: Diminished, Normal air movement, No rhonchi, No wheeze, No rales Cardiovascular: Regular rate, Regular Rhythm, Normal S1, Normal S2, No murmurs Abdomen: Soft, Non Tender, Non-Distended, No Hepato-splenomegaly Extremities: No edema, Capillary Refill Less than 3 Seconds Skin: No rashes, No breakdown Musculoskeletal: No Tenderness to Palpation of Joints or Extremities Neurological: No focal neurological deficits, moves all extremities Psych/Mental Status: Normal Affect, Appropriate Results Lab / Micro Data 08/02/25 18:23 08/02/25 19:22 Labs: Laboratory Results - last 24 hr 08/02/25 18:23: WBC 6.0, RBC 4.35, Hgb 12.8, Hct 39.4, MCV 90.6, MCH 29.4, MCHC 32.5, RDW Std Deviation 44.1 H, RDW Coeff of Gabi 13.3, Plt Count 187, MPV 11.5, Immature Gran % (Auto) 0.200, Neut % (Auto) 67.2, Lymph % (Auto) 19.2, [place] % (Auto) 11.9 H, Eos % (Auto) 1.3, Baso % (Auto) 0.2, Absolute Neuts (auto) 4.0, Absolute Lymphs (auto) 1.14, Nucleated RBC % 0, Sodium Cancelled, Potassium Cancelled, Chloride Cancelled, Carbon Dioxide Cancelled, Anion Gap Cancelled, BUN Cancelled, Creatinine Cancelled, Est GFR (MDRD) Non-Af Cancelled, BUN/Creatinine Ratio Cancelled, Glucose Cancelled, Calcium Cancelled, Troponin T High Sens 11 08/02/25 19:20: Urine Color Yellow, Urine Clarity Clear, Urine pH 6.0, Ur Specific [place] 1.015, Urine Protein 30 H, Urine Glucose (UA) Normal, Urine Ketones Negative, Urine Occult Blood 25 H, Urine Nitrite Positive H, Urine Bilirubin Negative, Urine Urobilinogen Normal, Ur Leukocyte Esterase 100 H, Urine RBC 0 SEEN, Urine WBC 0-5 SEEN, Ur Squamous Epith Cells 0-5 SEEN, Ur Transition Epith Cell 0-5 SEEN, Amorphous Sediment 1+, Urine Bacteria 1+, Urine Mucus 0 SEEN 08/02/25 19:22: Sodium 139, Potassium 4.8, Chloride 108, Carbon Dioxide 18.7 L, Anion Gap 13, BUN 19, Creatinine 1.13, Estim Creat Clear Calc 24.72 L, Est GFR (MDRD) Non-Af 47 L, BUN/Creatinine Ratio 16.7, Glucose 86, Calcium 7.7 Imaging Radiology Impression Brain CT 08/02/25 18:40 IMPRESSION: No acute intracranial process. Reading Location: [facility] Cervical Spine CT 08/02/25 18:40 IMPRESSION: No acute cervical fracture or subluxations. Extensive multilevel degenerative changes of the cervical spine as above. Reading Location: [facility] Chest X-Ray 08/02/25 18:40 IMPRESSION: Pulmonary findings as above. Reading Location: [facility] Elbow X-Ray 08/02/25 18:40 IMPRESSION: No acute osseous abnormalities. Osteoarthrosis. Reading Location: [facility] Assessment & Plan Assessment/Plan (1) Syncope: PLAN: Plan 1. Syncope/essential HTN/HLD/CAD status post stent ? She did hit her head and imaging is negative for any type of injury ? Orthostatic vital signs were negative ? Continue with IV fluids ? She is on metoprolol 25 mg p.o. twice daily and Norvasc 2.5 mg p.o. twice daily as well as Aldactone 25 mg p.o. daily will monitor her blood pressure and adjust as necessary ? Will obtain an echocardiogram her last echo was in 05/03/2022 with an EF of 60% and a PASP of 34 mmHg 2. Hypothyroidism ? Stable ? Continue with Synthroid 3. GERD ? Stable ? Continue with PPI 4. Anxiety/depression ? Stable ? Continue with her home medications 5. Osteoporosis ? Stable ? Continue with Prolia DVT: SCDs Charges/Coding Visit Charges Inpatient E&M: 29027 Init Hosp L2
--- OUTSIDE RECORDS SUMMARY | 2025-08-02 20:29 | XMS RPT_ITS | CCD ---
Author Organization [facility] Care Team Providers Care Assistant Professor Of Art Name Role Phone Basilia Gamble N Unavailable [...] Provider [phone] Mckenzie Ha Attending Provider Unavailable Waldo PRITCHETT, PRODUCTION MACHINE TENDER-C Autumn Attending Provider Dr. Rehan Lucero Primary Care Provider Dr. Rehan Lucero Referring Provider [phone] Mckenzie Ha Attending Provider Unavailable Dr. Aakash Springer Attending Provider [phone] Aakash Springer Referring Provider [phone] Rehan Lucero Primary Care Provider Dr. Rehan Lucero Referring Provider [phone] Waldo PRODUCTION MACHINE TENDER, PRODUCTION MACHINE TENDER-C Autumn Attending Provider Dr. Rehan Lucero Primary Care Provider Dr. Rehan Lucero Referring Provider [phone] Waldo PRODUCTION MACHINE TENDER, PRODUCTION MACHINE TENDER-C Autumn Attending Provider NIC MARTINEZ, REHAN Primary Care Unavailable RAMSES FERNANDES, DR BALDWIN Attending Unavailabl e NIC DO, REHAN Attending Unavailable NIC DO, REAHN Primary Care Unavailable NIC DO, REHAN Attending Unavailable NIC DO, REHAN Primary Care Unavailable NIC DO, REHAN Attending Unavailable NIC DO, REHAN Primary Care Unavailable NIC DO, REHAN Attending Unavailable NIC DO, REHAN Primary Care Unavailable NCI MARTINEZ, REHAN Primary Care Unavailable MAST PALLET ASSEMBLER-HUMAN RESOURCES PROJECT COORDINATOR, REBECA Attending UnavailDr. Rehan Reyes DO Primary Care Provider [phone] Heather MARTINEZ, Dr. Oliver Attending Provider Dr. Benito Romero DO Emergency Provider Dr. Braydon Nathan DO Attending Provider Dr. Braydon Nathan DO Emergency Provider Fco FERNANDES, Jamir Attending Provider Unavailable Dr. Rehan Lucero DO Referring Provider Renee Mclean Attending Provider [phone] Albin Plummer MD Emergency Provider [phone] Aguilar Gale DO Admit Provider Dr. Aguilar Gale DO Attending Provider Dr. Aguilar Gale DO Other Provider Jerri FERNANDES, Dr. Britt Chaves Attending Provider Jerri FERNANDES, Dr. Britt Chaves Other Provider [phone] STEPHANIE ESPITIA DO Primary Care Physician [phone] STEPHANIE ESPITIA DO Primary Care Unavailable LOUIS [...] DO Referring Provider Scottie Zarate Attending Physician [phone] Dr. Stephanie Espitia DO Primary Care Physician Allergies Allergy Classification Reported Allergen(s) Allergy Type Date of Onset Reaction(s) Facility (20 sources) Acetaminophen / oxyCODONE; Translations: [acetaminophen-oxy codone] Drug Allergy [facility] (20 sources) Acetaminophen / Propoxyphene; Translations: [acetaminophen-pro poxyphene] Drug Allergy [facility] (20 sources) traMADol; Translations: [tramadol] Drug Allergy 10-18-2021 Unknown [facility] (14 sources) atorvastatin Drug Allergy 10-18-2021 myalgia [facility] (14 sources) oxyCODONE Drug Allergy 10-18-2021 Unknown [facility] (14 sources) Propoxyphene Drug Allergy 10-18-2021 Unknown [facility] (1 source) atorvastatin Drug Allergy 05-25-2025 [facility] (1 source) oxyCODONE Drug Allergy 05-25-2025 [facility] (1 source) Propoxyphene Drug Allergy 05-25-2025 [facility] Medications Current Medications Medication Drug [...] q4h, # 18 gram(s), 0 Refill(s), Pharmacy: [facility]/pharmacy #[id number], Acute bronchitis Shortness of breath, [...] q12hr, # 90 tab(s), 3 Refill(s), Pharmacy: [facility]/pharmacy #[id number], 149.5, cm, 07/29/24 11:07:00 EST, [...] 08/16/21 Status: Ordered Dextromethorphan (2 sources) Uncompetitive H-eaymbe-C-aspartat e Receptor Antagonist, Sigma-1 Agonist Start: 06-17-2024 [...] 0 Refill(s), 06/27/24 3:48:00 PM EST, Pharmacy: [facility]/pharmacy #[id number], Acute bacterial rhinosinusitis, 154, cm, [...] 0 Refill(s), 06/27/24 3:48:00 PM EST, Pharmacy: [facility]/pharmacy #[id number], Acute bacterial rhinosinusitis Acute bronchitis, [...] qDay, # 90 tab(s), 3 Refill(s), Pharmacy: [facility]/pharmacy #[id number], 149.9, cm, 10/22/20 7:57:00 EST, [...] fluids, # 20 tab(s), 0 Refill(s), Pharmacy: [facility]/pharmacy #[id number], 149, cm, 08/26/21 15:00:00 EST, [...] qDay, # 90 tab(s), 3 Refill(s), Pharmacy: [facility]/pharmacy #[id number], 149.5, cm, 07/29/24 11:07:00 EST, [...] qDay, # 90 tab(s), 0 Refill(s), [id number] 151, cm, 05/09/23 14:34:00 EDT, Height, kg, 05/09/23 14:34:00 EDT, Dosing Weight Start Date: 05/17/23 Status: Ordered Start: 03-15-2023 take 0.5 tablet by m outh once daily levothyroxine 50 mcg (0.05 mg) oral tablet See Instructions, TAKE 0.5 TABLET BY MOUTH EVERY DAY, # 45 tab(s), 3 Refill(s), [id number] 150, cm, 01/25/23 14:09:00 EDT, Height, kg, 01/25/23 14:09:00 EDT, Dosing Weight Start Date: 03/15/23 Status: Ordered Start: 03-31-2022 take 1 tablet by clair th once daily levothyroxine 50 mcg (0.05 mg) oral tablet See Instructions, TAKE 1 TABLET BY MOUTH EVERY DAY, # 90 tab(s), 3 Refill(s), Pharmacy: [facility]/pharmacy #[id number], 149, cm, 03/24/22 14:43:00 EDT, Height, kg, 03/24/22 14:43:00 EDT, Dosing Weight Start Date: 03/31/22 Status: Ordered Start: 04-04-2021 take 1 tablet by clair th once daily levothyroxine 50 mcg (0.05 mg) oral tablet See Instructions, TAKE 1 TABLET BY MOUTH EVERY DAY, # 90 tab(s), 3 Refill(s), Pharmacy: [facility]/pharmacy #[id number], 149.9, cm, 03/28/21 10:19:00 EDT, Height, kg, 03/28/21 10:19:00 EDT, Dosing Weight Start Date: 04/04/21 Status: Ordered Start: 04-24-2019 End: 06-07-2023 take 1 capsule by mouth once daily Levothyroxine 50 mcg capsule Discontinued 50 ug PO DAILY April 24, 2019 12:00am June 07, 2023 9:45am Start: 12-25-2016 LEVO-T 50 MCG TABS LEVOTHYROXINE SODIUM [id number] Jose Proctor Start: 12-25-2016 LEVO-T 50 MCG TABS LEVOTHYROXINE SODIUM [id number] Jose Proctor traMADol hydrochloride 50 mg oral [...] VICODIN HP 10- 300 MG TABS HYDROCODONE-ACETAMINOPHEN [id number] Jose Proctor Start: 12-25-2016 VICODIN HP 10- 300 MG TABS HYDROCODONE-ACETAMINOPHEN [id number] Jose Proctor B COMPLEX VITAMINS (1 source) Start: 12-25-2016 B COMPLEX 50 T ABS B COMPLEX VITAMINS [id number] Jose Proctor B COMPLEX VITAMINS (1 source) Start: 12-25-2016 B COMPLEX 50 T ABS B COMPLEX VITAMINS [id number] Jose Proctor baclofen 5 mg oral tablet [...] 12-25-2016 NEXIUM 10 MG PACK ESOMEPRAZOLE MAGNESIUM [id number] Jose Proctor fluticasone propionate 0.05 mg/actuat metered dose nasal spray (2 sources) Corticosteroid Start: 06-17-2024 End: 07-17-2024 take 100 ug nasal route once daily fluticasone 50 mcg/inh NASAL spray 100 mcg Dose = 2 spray(s), Nostril, each, qDay, shake well before using, # 16 gram(s), 0 Refill(s), Pharmacy: [facility]/pharmacy #[id number], Acute bacterial rhinosinusitis Bilateral serous [...] Start: 12-25-2016 FUROSEMIDE 40 MG TABS FUROSEMIDE [id number] Jose Proctor gabapentin 100 mg oral capsule [...] hours, # 60 patch(es), 5 Refill(s), Pharmacy: [facility]/pharmacy #[id number], Chronic back pain, 149.9, cm, 12/31/20 14:10:00 [...] hours, # 30 cap(s), 5 Refill(s), Pharmacy: [facility]/pharmacy #[id number], 151, cm, 05/09/23 14:34:00 EDT, Height, kg, 05/18/23 15:02:00 EDT, Dosing Weight Start Date: 06/07/23 Status: Ordered Start: 08-29-2022 End: 12-27-2022 loperamide 2 mg oral capsule 1 to 2 cap(s), Oral, q6hr, PRN loose stools, not to exceed 8 capsules, or 16 mg, in 24 hours, X 30 day(s), # 120 cap(s), 3 Refill(s), 12/27/22 19:37:00 EDT, [id number], 147.9, cm, 07/25/22 13:40:00 EST, Height [...] Start: 12-25-2016 SPIRONOLACTONE 25 MG TABS SPIRONOLACTONE [id number] Jose Proctor traZODone hydrochloride 50 mg oral [...] Facility Cardiology Visit Reporton Cardiology Visit Report [facility] 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 Is patient in pain?: No [...] denosumab 60 mg/mL subcutaneous 60 mg subcut [id number] oa 11/26/24 05/25/25 History syringe (Prolia) ibuprofen [...] (Reviewed 05/25/25 @ 15:08 by Scottie Kim PRODUCTION MACHINE TENDER, PRODUCTION MACHINE TENDER-C) Immobility Closed fracture of left clavicle Fall [...] (DVT) (04/2012) Atherosclerosis of coronary artery of [place] without angina pectoris Essential (primary) hypertension Hyperlipidemia Surgical History (Reviewed 05/25/25 @ 15:08 by Scottie Kim PRODUCTION MACHINE TENDER, PRODUCTION MACHINE TENDER-C) History of loop recorder (05/05/19) History of thoracentesis H (more content not included)... Normal [facility] .GFRon 03-19-2025 Estimated Glomerular Filtration Rate 36 ml/min/1.73sqm Normal [facility] Comment on above: Result Comment: Stages of [...] #### A 1C, CMP, TSHR, GFR #### [address] [address] A1Con 03-19-2025 Glucose [Mass/Vol] 126 mg/dL Normal [facility] Comment on above: Result Comment: Shruthi mated Average Glucose calculated by equation ((28.7xA1C)-46.7) Estimated average glucose (eAG) is a calculated value from Hemoglobin A1C and is new accounts representative of the average blood glucose level in the last 2-3 month period. Normal range: less than 114 mg/dL Performed By: #### A 1C, CMP, TSHR, GFR #### [address] [address] HbA1c (Bld) [Mass fraction] 6.0 % Normal 4.3-6.4 [facility] Comment on above: Performed By: #### A 1C, CMP, TSHR, GFR #### [address] [address] CMPon 03-19-2025 Albumin Level 3.6 G/dL Normal 3.4-4.8 [facility] Comment on above: Performed By: #### A 1C, CMP, TSHR, GFR #### [address] [address] Albumin/Globulin [Mass ratio] 1.1 {ratio} Normal 1.1-2.5 [facility] Comment on above: Performed By: #### A 1C, CMP, TSHR, GFR #### [address] [address] ALP [Catalytic activity/Vol] 60 U/L Normal 40-135 [facility] Comment on above: Performed By: #### A 1C, CMP, TSHR, GFR #### [address] [address] ALT [Catalytic activity/Vol] 11 U/L Low 14-59 [facility] Comment on above: Performed By: #### A 1C, CMP, TSHR, GFR #### [address] [address] AST [Catalytic activity/Vol] 11 U/L Normal 10-40 [facility] Comment on above: Performed By: #### A 1C, CMP, TSHR, GFR #### [address] [address] Bili Total 0.3 mg/dL Normal 0.2-1.0 [facility] Comment on above: Result Comment: Use of this assay is not recommended for patients undergoing treatment with eltrombopag due to the potential for falsely elevated results. Performed By: #### A 1C, CMP, TSHR, GFR #### [place] [address] BUN/Creatinine Ratio 17 ratio Normal 7-27 [facility] Comment on above: Performed By: #### A 1C, CMP, TSHR, GFR #### [address] [address] Calcium [Mass/Vol] 9.3 mg/dL Normal 8.4-10.2 [facility] Comment on above: Performed By: #### A 1C, CMP, TSHR, GFR #### [address] [address] Chloride [Moles/Vol] 103 mmol/L Normal 98-107 [facility] Comment on above: Performed By: #### A 1C, CMP, TSHR, GFR #### [address] [address] CO2 [Moles/Vol] 29 mmol/L Normal 23-31 [facility] Comment on above: Performed By: #### A 1C, CMP, TSHR, GFR #### [address] [address] Creatinine [Mass/Vol] 1.40 mg/dL High 0.51-0.95 [facility] Comment on above: Performed By: #### A 1C, CMP, TSHR, GFR #### [address] [address] Electrolyte Balance 7.0 mEq/L Normal 4.0-15.0 [facility] Comment on above: Performed By: #### A 1C, CMP, TSHR, GFR #### [address] [address] Globulin 3.3 G/dL Normal 2.7-4.4 [facility] Comment on above: Performed By: #### A 1C, CMP, TSHR, GFR #### [address] [address] Glucose [Mass/Vol] 88 mg/dL Normal 83-110 [facility] Comment on above: Performed By: #### A 1C, CMP, TSHR, GFR #### [address] [address] Potassium [Moles/Vol] 4.5 mmol/L Normal 3.5-5.1 [facility] Comment on above: Performed By: #### A 1C, CMP, TSHR, GFR #### [address] [address] Sodium [Moles/Vol] 139 mmol/L Normal 136-145 [facility] Comment on above: Performed By: #### A 1C, CMP, TSHR, GFR #### [address] [address] Total Protein 6.9 G/dL Normal 6.4-8.2 [facility] Comment on above: Performed By: #### A 1C, CMP, TSHR, GFR #### [address] [address] Urea nitrogen [Mass/Vol] 24 mg/dL High 7-18 [facility] Comment on above: Performed By: #### A 1C, CMP, TSHR, GFR #### [address] [address] LABORATORYOrdered By: SYSTEM SYSTEM on 03-19-2025 Albumin [...] calculated value from Hemoglobin A1C and is new accounts representative of the average blood glucose level [...] 03-19-2025 TSH Qn 0.62 m[IU]/L Normal 0.36-3.74 [facility] Comment on above: Performed By: #### A 1C, CMP, TSHR, GFR #### [facility] [address] [place] [address] Basic Metabolic Profile (BMP )on 12-06-2024 BUN Normal 4-19 [facility] Comment on above: Result Comment: Canc elled via OM: Order cancelled - Patient discharged Performed By: #### L 500.2500, L100.0100 #### [facility] [address] [place], [address] BUN/CRE Normal 10-20 [facility] Comment on above: Result Comment: Canc elled via OM: Order cancelled - Patient discharged Performed By: #### L 500.2500, L100.0100 #### [facility] [address] [place], [address] Calcium Normal 7.6-11.0 [facility] Comment on above: Result Comment: Canc elled via OM: Order cancelled - Patient discharged Performed By: #### L 500.2500, L100.0100 #### [facility] [address] [place], [address] CL Normal 98-108 [facility] Comment on above: Result Comment: Canc elled via OM: Order cancelled - Patient discharged Performed By: #### L 500.2500, L100.0100 #### [facility] [address] [place], [address] CO2 Normal 21.0-32.0 [facility] Comment on above: Result Comment: Canc elled via OM: Order cancelled - Patient discharged Performed By: #### L 500.2500, L100.0100 #### [facility] [address] [place], [address] CREAT,SERUM Normal 0.70-1.20 [facility] Comment on above: Result Comment: Canc elled via OM: Order cancelled - Patient discharged Performed By: #### L 500.2500, L100.0100 #### [facility] [address] [place], [address] eGFR Normal >60 [facility] Comment on above: Result Comment: Canc elled via OM: Order cancelled - Patient discharged Performed By: #### L 500.2500, L100.0100 #### [facility] [address] [place], [address] GAP Normal 5-15 [facility] Comment on above: Result Comment: Canc elled via OM: Order cancelled - Patient discharged Performed By: #### L 500.2500, L100.0100 #### [facility] [address] [place], [address] GLU Normal 70-99 [facility] Comment on above: Result Comment: Canc elled via OM: Order cancelled - Patient discharged Performed By: #### L 500.2500, L100.0100 #### [facility] [address] [place], [address] Potassium Normal 3.3-5.1 [facility] Comment on above: Result Comment: Canc elled via OM: Order cancelled - Patient discharged Performed By: #### L 500.2500, L100.0100 #### [facility] [address] [place], [address] Basic Metabolic Profile (BMP) Normal 133-145 [facility] Comment on above: Result Comment: Canc elled via OM: Order cancelled - Patient discharged Performed By: #### L 500.2500, L100.0100 #### [facility] [address] [place], [address] CBC W/Diff, Automatedon 04-2 Absolute Neut Normal 2.0-7.7 [facility] Comment on above: Result Comment: Canc elled via OM: Order cancelled - Patient discharged Performed By: #### L 500.2500, L100.0100 #### [facility] [address] [place], [address] HCT Normal 37-47 [facility] Comment on above: Result Comment: Canc elled via OM: Order cancelled - Patient discharged Performed By: #### L 500.2500, L100.0100 #### [facility] [address] [place], [address] HGB Normal 12.0-15.0 [facility] Comment on above: Result Comment: Canc elled via OM: Order cancelled - Patient discharged Performed By: #### L 500.2500, L100.0100 #### [facility] [address] [place], [address] MCH Normal 27.0-32.0 [facility] Comment on above: Result Comment: Canc elled via OM: Order cancelled - Patient discharged Performed By: #### L 500.2500, L100.0100 #### [facility] [address] [place], [address] MCHC Normal 32-36 [facility] Comment on above: Result Comment: Canc elled via OM: Order cancelled - Patient discharged Performed By: #### L 500.2500, L100.0100 #### [facility] [address] [place], [address] MCV Normal 81-99 [facility] Comment on above: Result Comment: Canc elled via OM: Order cancelled - Patient discharged Performed By: #### L 500.2500, L100.0100 #### [facility] [address] [place], [address] NEUT% Normal 47-70 [facility] Comment on above: Result Comment: Canc elled via OM: Order cancelled - Patient discharged Performed By: #### L 500.2500, L100.0100 #### [facility] [address] [place], [address] PLT Normal 150-450 [facility] Comment on above: Result Comment: Canc elled via OM: Order cancelled - Patient discharged Performed By: #### L 500.2500, L100.0100 #### [facility] [address] [place], [address] RBC Normal 4.2-5.4 [facility] Comment on above: Result Comment: Canc elled via OM: Order cancelled - Patient discharged Performed By: #### L 500.2500, L100.0100 #### [facility] [address] [place], [address] RDW CV Normal 11.6-14.6 [facility] Comment on above: Result Comment: Canc elled via OM: Order cancelled - Patient discharged Performed By: #### L 500.2500, L100.0100 #### [facility] [address] [place], [address] RDW SD Normal 35.1-43.9 [facility] Comment on above: Result Comment: Canc elled via OM: Order cancelled - Patient discharged Performed By: #### L 500.2500, L100.0100 #### [facility] [address] [place], [address] WBC Normal 4.4-11.0 [facility] Comment on above: Result Comment: Canc elled via OM: Order cancelled - Patient discharged Performed By: #### L 500.2500, L100.0100 #### [facility] [address] [place], [address] Basic Metabolic Profile (BMP )on 12-05-2024 BUN Normal 4-19 [facility] Comment on above: Result Comment: Canc elled via OM: Order cancelled - Patient discharged Performed By: #### L 500.2500, L100.0100 #### [facility] [address] [place], [address] BUN/CRE Normal 10-20 [facility] Comment on above: Result Comment: Canc elled via OM: Order cancelled - Patient discharged Performed By: #### L 500.2500, L100.0100 #### [facility] [address] [place], [address] Calcium Normal 7.6-11.0 [facility] Comment on above: Result Comment: Canc elled via OM: Order cancelled - Patient discharged Performed By: #### L 500.2500, L100.0100 #### [facility] [address] [place], [address] CL Normal 98-108 [facility] Comment on above: Result Comment: Canc elled via OM: Order cancelled - Patient discharged Performed By: #### L 500.2500, L100.0100 #### [facility] [address] [place], [address] CO2 Normal 21.0-32.0 [facility] Comment on above: Result Comment: Canc elled via OM: Order cancelled - Patient discharged Performed By: #### L 500.2500, L100.0100 #### [facility] [address] [place], [address] CREAT,SERUM Normal 0.70-1.20 [facility] Comment on above: Result Comment: Canc elled via OM: Order cancelled - Patient discharged Performed By: #### L 500.2500, L100.0100 #### [facility] [address] [place], [address] eGFR Normal >60 [facility] Comment on above: Result Comment: Canc elled via OM: Order cancelled - Patient discharged Performed By: #### L 500.2500, L100.0100 #### [facility] [address] [place], [address] GAP Normal 5-15 [facility] Comment on above: Result Comment: Canc elled via OM: Order cancelled - Patient discharged Performed By: #### L 500.2500, L100.0100 #### [facility] [address] [place], [address] GLU Normal 70-99 [facility] Comment on above: Result Comment: Canc elled via OM: Order cancelled - Patient discharged Performed By: #### L 500.2500, L100.0100 #### [facility] [address] [place], [address] Potassium Normal 3.3-5.1 [facility] Comment on above: Result Comment: Canc elled via OM: Order cancelled - Patient discharged Performed By: #### L 500.2500, L100.0100 #### [facility] [address] [place], [address] Basic Metabolic Profile (BMP) Normal 133-145 [facility] Comment on above: Result Comment: Canc elled via OM: Order cancelled - Patient discharged Performed By: #### L 500.2500, L100.0100 #### [facility] [address] [place], [address] CBC W/Diff, Automatedon 04-2 Absolute Neut Normal 2.0-7.7 [facility] Comment on above: Result Comment: Canc elled via OM: Order cancelled - Patient discharged Performed By: #### L 500.2500, L100.0100 #### [facility] [address] [place], [address] HCT Normal 37-47 [facility] Comment on above: Result Comment: Canc elled via OM: Order cancelled - Patient discharged Performed By: #### L 500.2500, L100.0100 #### [facility] [address] [place], [address] HGB Normal 12.0-15.0 [facility] Comment on above: Result Comment: Canc elled via OM: Order cancelled - Patient discharged Performed By: #### L 500.2500, L100.0100 #### [facility] [address] [place], [address] MCH Normal 27.0-32.0 [facility] Comment on above: Result Comment: Canc elled via OM: Order cancelled - Patient discharged Performed By: #### L 500.2500, L100.0100 #### [facility] [address] [place], [address] MCHC Normal 32-36 [facility] Comment on above: Result Comment: Canc elled via OM: Order cancelled - Patient discharged Performed By: #### L 500.2500, L100.0100 #### [facility] [address] [place], [address] MCV Normal 81-99 [facility] Comment on above: Result Comment: Canc elled via OM: Order cancelled - Patient discharged Performed By: #### L 500.2500, L100.0100 #### [facility] [address] [place], [address] NEUT% Normal 47-70 [facility] Comment on above: Result Comment: Canc elled via OM: Order cancelled - Patient discharged Performed By: #### L 500.2500, L100.0100 #### [facility] [address] [place], [address] PLT Normal 150-450 [facility] Comment on above: Result Comment: Canc elled via OM: Order cancelled - Patient discharged Performed By: #### L 500.2500, L100.0100 #### [facility] [address] [place], [address] RBC Normal 4.2-5.4 [facility] Comment on above: Result Comment: Canc elled via OM: Order cancelled - Patient discharged Performed By: #### L 500.2500, L100.0100 #### [facility] [address] [place], [address] RDW CV Normal 11.6-14.6 [facility] Comment on above: Result Comment: Canc elled via OM: Order cancelled - Patient discharged Performed By: #### L 500.2500, L100.0100 #### [facility] [address] [place], [address] RDW SD Normal 35.1-43.9 [facility] Comment on above: Result Comment: Canc elled via OM: Order cancelled - Patient discharged Performed By: #### L 500.2500, L100.0100 #### [facility] [address] [place], [address] WBC Normal 4.4-11.0 [facility] Comment on above: Result Comment: Canc elled via OM: Order cancelled - Patient discharged Performed By: #### L 500.2500, L100.0100 #### [facility] [address] [place], [address] Basic Metabolic Profile (BMP )on 12-04-2024 BUN Normal 4-19 [facility] Comment on above: Result Comment: Canc elled via OM: Order cancelled - Patient discharged Performed By: #### L 100.0100, L500.2500 #### [facility] [address] [place], [address] BUN/CRE Normal 10-20 [facility] Comment on above: Result Comment: Canc elled via OM: Order cancelled - Patient discharged Performed By: #### L 100.0100, L500.2500 #### [facility] [address] [place], [address] Calcium Normal 7.6-11.0 [facility] Comment on above: Result Comment: Canc elled via OM: Order cancelled - Patient discharged Performed By: #### L 100.0100, L500.2500 #### [facility] [address] [place], [address] CL Normal 98-108 [facility] Comment on above: Result Comment: Canc elled via OM: Order cancelled - Patient discharged Performed By: #### L 100.0100, L500.2500 #### [facility] [address] [place], [address] CO2 Normal 21.0-32.0 [facility] Comment on above: Result Comment: Canc elled via OM: Order cancelled - Patient discharged Performed By: #### L 100.0100, L500.2500 #### [facility] [address] [place], [address] CREAT,SERUM Normal 0.70-1.20 [facility] Comment on above: Result Comment: Canc elled via OM: Order cancelled - Patient discharged Performed By: #### L 100.0100, L500.2500 #### [facility] [address] [place], [address] eGFR Normal >60 [facility] Comment on above: Result Comment: Canc elled via OM: Order cancelled - Patient discharged Performed By: #### L 100.0100, L500.2500 #### [facility] [address] [place], [address] GAP Normal 5-15 [facility] Comment on above: Result Comment: Canc elled via OM: Order cancelled - Patient discharged Performed By: #### L 100.0100, L500.2500 #### [facility] [address] [place], [address] GLU Normal 70-99 [facility] Comment on above: Result Comment: Canc elled via OM: Order cancelled - Patient discharged Performed By: #### L 100.0100, L500.2500 #### [facility] [address] [place], [address] Potassium Normal 3.3-5.1 [facility] Comment on above: Result Comment: Canc elled via OM: Order cancelled - Patient discharged Performed By: #### L 100.0100, L500.2500 #### [facility] [address] [place], [address] Basic Metabolic Profile (BMP) Normal 133-145 [facility] Comment on above: Result Comment: Canc elled via OM: Order cancelled - Patient discharged Performed By: #### L 100.0100, L500.2500 #### [facility] [address] [place], [address] CBC W/Diff, Automatedon 04-2 Absolute Neut Normal 2.0-7.7 [facility] Comment on above: Result Comment: Canc elled via OM: Order cancelled - Patient discharged Performed By: #### L 100.0100, L500.2500 #### [facility] [address] [place], [address] HCT Normal 37-47 [facility] Comment on above: Result Comment: Canc elled via OM: Order cancelled - Patient discharged Performed By: #### L 100.0100, L500.2500 #### [facility] [address] [place], [address] HGB Normal 12.0-15.0 [facility] Comment on above: Result Comment: Canc elled via OM: Order cancelled - Patient discharged Performed By: #### L 100.0100, L500.2500 #### [facility] [address] [place], [address] MCH Normal 27.0-32.0 [facility] Comment on above: Result Comment: Canc elled via OM: Order cancelled - Patient discharged Performed By: #### L 100.0100, L500.2500 #### [facility] [address] [place], [address] MCHC Normal 32-36 [facility] Comment on above: Result Comment: Canc elled via OM: Order cancelled - Patient discharged Performed By: #### L 100.0100, L500.2500 #### [facility] [address] [place], [address] MCV Normal 81-99 [facility] Comment on above: Result Comment: Canc elled via OM: Order cancelled - Patient discharged Performed By: #### L 100.0100, L500.2500 #### [facility] [address] [place], [address] NEUT% Normal 47-70 [facility] Comment on above: Result Comment: Canc elled via OM: Order cancelled - Patient discharged Performed By: #### L 100.0100, L500.2500 #### [facility] [address] [place], [address] PLT Normal 150-450 [facility] Comment on above: Result Comment: Canc elled via OM: Order cancelled - Patient discharged Performed By: #### L 100.0100, L500.2500 #### [facility] [address] [place], [address] RBC Normal 4.2-5.4 [facility] Comment on above: Result Comment: Canc elled via OM: Order cancelled - Patient discharged Performed By: #### L 100.0100, L500.2500 #### [facility] [address] [place], [address] RDW CV Normal 11.6-14.6 [facility] Comment on above: Result Comment: Canc elled via OM: Order cancelled - Patient discharged Performed By: #### L 100.0100, L500.2500 #### [facility] [address] [place], [address] RDW SD Normal 35.1-43.9 [facility] Comment on above: Result Comment: Canc elled via OM: Order cancelled - Patient discharged Performed By: #### L 100.0100, L500.2500 #### [facility] [address] [place], [address] WBC Normal 4.4-11.0 [facility] Comment on above: Result Comment: Canc elled via OM: Order cancelled - Patient discharged Performed By: #### L 100.0100, L500.2500 #### [facility] [address] [place], [address] Basic Metabolic Profile (BMP )on 12-03-2024 BUN Normal 4-19 [facility] Comment on above: Result Comment: Canc elled via OM: Order cancelled - Patient discharged Performed By: #### L 500.2500, L100.0100 #### [facility] [address] [place], [address] BUN/CRE Normal 10-20 [facility] Comment on above: Result Comment: Canc elled via OM: Order cancelled - Patient discharged Performed By: #### L 500.2500, L100.0100 #### [facility] [address] [place], [address] Calcium Normal 7.6-11.0 [facility] Comment on above: Result Comment: Canc elled via OM: Order cancelled - Patient discharged Performed By: #### L 500.2500, L100.0100 #### [facility] [address] [place], [address] CL Normal 98-108 [facility] Comment on above: Result Comment: Canc elled via OM: Order cancelled - Patient discharged Performed By: #### L 500.2500, L100.0100 #### [facility] [address] [place], [address] CO2 Normal 21.0-32.0 [facility] Comment on above: Result Comment: Canc elled via OM: Order cancelled - Patient discharged Performed By: #### L 500.2500, L100.0100 #### [facility] [address] [place], [address] CREAT,SERUM Normal 0.70-1.20 [facility] Comment on above: Result Comment: Canc elled via OM: Order cancelled - Patient discharged Performed By: #### L 500.2500, L100.0100 #### [facility] [address] [place], [address] eGFR Normal >60 [facility] Comment on above: Result Comment: Canc elled via OM: Order cancelled - Patient discharged Performed By: #### L 500.2500, L100.0100 #### [facility] [address] [place], [address] GAP Normal 5-15 [facility] Comment on above: Result Comment: Canc elled via OM: Order cancelled - Patient discharged Performed By: #### L 500.2500, L100.0100 #### [facility] [address] [place], [address] GLU Normal 70-99 [facility] Comment on above: Result Comment: Canc elled via OM: Order cancelled - Patient discharged Performed By: #### L 500.2500, L100.0100 #### [facility] [address] [place], [address] Potassium Normal 3.3-5.1 [facility] Comment on above: Result Comment: Canc elled via OM: Order cancelled - Patient discharged Performed By: #### L 500.2500, L100.0100 #### [facility] [address] [place], [address] Basic Metabolic Profile (BMP) Normal 133-145 [facility] Comment on above: Result Comment: Canc elled via OM: Order cancelled - Patient discharged Performed By: #### L 500.2500, L100.0100 #### [facility] [address] [place], [address] CBC W/Diff, Automatedon 04-2 Absolute Neut Normal 2.0-7.7 [facility] Comment on above: Result Comment: Canc elled via OM: Order cancelled - Patient discharged Performed By: #### L 500.2500, L100.0100 #### [facility] [address] [place], [address] HCT Normal 37-47 [facility] Comment on above: Result Comment: Canc elled via OM: Order cancelled - Patient discharged Performed By: #### L 500.2500, L100.0100 #### [facility] [address] [place], [address] HGB Normal 12.0-15.0 [facility] Comment on above: Result Comment: Canc elled via OM: Order cancelled - Patient discharged Performed By: #### L 500.2500, L100.0100 #### [facility] [address] [place], [address] MCH Normal 27.0-32.0 [facility] Comment on above: Result Comment: Canc elled via OM: Order cancelled - Patient discharged Performed By: #### L 500.2500, L100.0100 #### [facility] [address] [place], [address] MCHC Normal 32-36 [facility] Comment on above: Result Comment: Canc elled via OM: Order cancelled - Patient discharged Performed By: #### L 500.2500, L100.0100 #### [facility] [address] [place], [address] MCV Normal 81-99 [facility] Comment on above: Result Comment: Canc elled via OM: Order cancelled - Patient discharged Performed By: #### L 500.2500, L100.0100 #### [facility] [address] [place], [address] NEUT% Normal 47-70 [facility] Comment on above: Result Comment: Canc elled via OM: Order cancelled - Patient discharged Performed By: #### L 500.2500, L100.0100 #### [facility] [address] [place], [address] PLT Normal 150-450 [facility] Comment on above: Result Comment: Canc elled via OM: Order cancelled - Patient discharged Performed By: #### L 500.2500, L100.0100 #### [facility] [address] [place], [address] RBC Normal 4.2-5.4 [facility] Comment on above: Result Comment: Canc elled via OM: Order cancelled - Patient discharged Performed By: #### L 500.2500, L100.0100 #### [facility] [address] [place], [address] RDW CV Normal 11.6-14.6 [facility] Comment on above: Result Comment: Canc elled via OM: Order cancelled - Patient discharged Performed By: #### L 500.2500, L100.0100 #### [facility] [address] [place], [address] RDW SD Normal 35.1-43.9 [facility] Comment on above: Result Comment: Canc elled via OM: Order cancelled - Patient discharged Performed By: #### L 500.2500, L100.0100 #### [facility] [address] [place], [address] WBC Normal 4.4-11.0 [facility] Comment on above: Result Comment: Canc elled via OM: Order cancelled - Patient discharged Performed By: #### L 500.2500, L100.0100 #### [facility] [address] [place], [address] Basic Metabolic Profile (BMP )on 12-02-2024 BUN Normal 4-19 [facility] Comment on above: Result Comment: Canc elled via OM: Order cancelled - Patient discharged Performed By: #### L 500.2500, L100.0100 ####[facility] [address] [place], [address] BUN/CRE Normal 10-20 [facility] Comment on above: Result Comment: Canc elled via OM: Order cancelled - Patient discharged Performed By: #### L 500.2500, L100.0100 ####[facility] [address] [place], [address] Calcium Normal 7.6-11.0 [facility] Comment on above: Result Comment: Canc elled via OM: Order cancelled - Patient discharged Performed By: #### L 500.2500, L100.0100 ####[facility] [address] [place], [address] CL Normal 98-108 [facility] Comment on above: Result Comment: Canc elled via OM: Order cancelled - Patient discharged Performed By: #### L 500.2500, L100.0100 ####[facility] [address] [place], [address] CO2 Normal 21.0-32.0 [facility] Comment on above: Result Comment: Canc elled via OM: Order cancelled - Patient discharged Performed By: #### L 500.2500, L100.0100 ####[facility] [address] [place], [address] CREAT,SERUM Normal 0.70-1.20 [facility] Comment on above: Result Comment: Canc elled via OM: Order cancelled - Patient discharged Performed By: #### L 500.2500, L100.0100 ####[facility] [address] [place], [address] eGFR Normal >60 [facility] Comment on above: Result Comment: Canc elled via OM: Order cancelled - Patient discharged Performed By: #### L 500.2500, L100.0100 ####[facility] [address] [place], [address] GAP Normal 5-15 [facility] Comment on above: Result Comment: Canc elled via OM: Order cancelled - Patient discharged Performed By: #### L 500.2500, L100.0100 ####[facility] [address] [place], [address] GLU Normal 70-99 [facility] Comment on above: Result Comment: Canc elled via OM: Order cancelled - Patient discharged Performed By: #### L 500.2500, L100.0100 ####[facility] [address] [place], [address] Potassium Normal 3.3-5.1 [facility] Comment on above: Result Comment: Canc elled via OM: Order cancelled - Patient discharged Performed By: #### L 500.2500, L100.0100 ####[facility] [address] [place], [address] Basic Metabolic Profile (BMP) Normal 133-145 [facility] Comment on above: Result Comment: Canc elled via OM: Order cancelled - Patient discharged Performed By: #### L 500.2500, L100.0100 ####[facility] [address] [place], [address] CBC W/Diff, Automatedon 04- Absolute Neut Normal 2.0-7.7 [facility] Comment on above: Result Comment: Canc elled via OM: Order cancelled - Patient discharged Performed By: #### L 500.2500, L100.0100 ####[facility] [address] [place], [address] HCT Normal 37-47 [facility] Comment on above: Result Comment: Canc elled via OM: Order cancelled - Patient discharged Performed By: #### L 500.2500, L100.0100 ####[facility] [address] [place], [address] HGB Normal 12.0-15.0 [facility] Comment on above: Result Comment: Canc elled via OM: Order cancelled - Patient discharged Performed By: #### L 500.2500, L100.0100 ####[facility] [address] [place], [address] MCH Normal 27.0-32.0 [facility] Comment on above: Result Comment: Canc elled via OM: Order cancelled - Patient discharged Performed By: #### L 500.2500, L100.0100 ####[facility] [address] [place], [address] MCHC Normal 32-36 [facility] Comment on above: Result Comment: Canc elled via OM: Order cancelled - Patient discharged Performed By: #### L 500.2500, L100.0100 ####[facility] [address] [place], [address] MCV Normal 81-99 [facility] Comment on above: Result Comment: Canc elled via OM: Order cancelled - Patient discharged Performed By: #### L 500.2500, L100.0100 ####[facility] [address] [place], [address] NEUT% Normal 47-70 [facility] Comment on above: Result Comment: Canc elled via OM: Order cancelled - Patient discharged Performed By: #### L 500.2500, L100.0100 ####[facility] [address] [place], [address] PLT Normal 150-450 [facility] Comment on above: Result Comment: Canc elled via OM: Order cancelled - Patient discharged Performed By: #### L 500.2500, L100.0100 ####[facility] [address] [place], [address] RBC Normal 4.2-5.4 [facility] Comment on above: Result Comment: Canc elled via OM: Order cancelled - Patient discharged Performed By: #### L 500.2500, L100.0100 ####[facility] [address] [place], [address] RDW CV Normal 11.6-14.6 [facility] Comment on above: Result Comment: Canc elled via OM: Order cancelled - Patient discharged Performed By: #### L 500.2500, L100.0100 ####[facility] [address] [place], [address] RDW SD Normal 35.1-43.9 [facility] Comment on above: Result Comment: Canc elled via OM: Order cancelled - Patient discharged Performed By: #### L 500.2500, L100.0100 ####[facility] [address] [place], [address] WBC Normal 4.4-11.0 [facility] Comment on above: Result Comment: Canc elled via OM: Order cancelled - Patient discharged Performed By: #### L 500.2500, L100.0100 ####[facility] [address] [place], [address] Anion gap in Serum or Plasma Ordered By: Jamir Eagle on 12-01-2024 Anion gap [Moles/Vol] 9 mmol/L - [facility] BUN/creatinine ratioOrdered By: Jamir Eagle on 12-01-2024 Urea nitrogen/Creatinine [Mass ratio] 13.8 mg/mg - [facility] Basic Metabolic Profile (BMP )on 12-01-2024 BUN/CRE 13.8 RATIO Normal - [facility] Comment on above: Order Comment: 202.2 Performed By: #### L 100.0100, L500.2500 #### [facility] [address] [place], [address] Calcium [Mass/Vol] 9.0 mg/dL Normal 7.6-11.0 [facility] Comment on above: Order Comment: 202.2 Performed By: #### L 100.0100, L500.2500 #### [facility] [address] [place], [address] Chloride [Moles/Vol] 106 mmol/L Normal 98-108 [facility] Comment on above: Order Comment: 202.2 Performed By: #### L 100.0100, L500.2500 #### [facility] [address] [place], [address] CO2 [Moles/Vol] 25.9 mmol/L Normal 21.0-32.0 [facility] Comment on above: Order Comment: 202.2 Performed By: #### L 100.0100, L500.2500 #### [facility] [address] [place], [address] Creatinine [Mass/Vol] 1.15 mg/dL Normal 0.70-1.20 [facility] Comment on above: Order Comment: 202.2 Performed By: #### L 100.0100, L500.2500 #### [facility] [address] [place], [address] GAP 9 Normal 5-15 [facility] Comment on above: Order Comment: 202.2 Performed By: #### L 100.0100, L500.2500 #### [facility] [address] [place], [address] GFR/1.73 sq M.predicted among non-blacks MDRD (S/P/Bld) [Vol rate/Area] 46 mL/min/{1.73_m2} Low >60 [facility] Comment on above: Order Comment: 202.2 Result Comment: mL/m in/1.73m2 CKD-EPI Creatinine Equation (2020) Performed By: #### L 100.0100, L500.2500 #### [facility] [address] [place], [address] Glucose [Mass/Vol] 91 mg/dL Normal 70-99 [facility] Comment on above: Order Comment: 202.2 Performed By: #### L 100.0100, L500.2500 #### [facility] [address] [place], [address] Potassium [Moles/Vol] 4.0 mmol/L Normal 3.3-5.1 [facility] Comment on above: Order Comment: 202.2 Performed By: #### L 100.0100, L500.2500 #### [facility] [address] [place], [address] Sodium [Moles/Vol] 141 mmol/L Normal 133-145 [facility] Comment on above: Order Comment: 202.2 Performed By: #### L 100.0100, L500.2500 #### [facility] [address] [place], [address] Urea nitrogen [Mass/Vol] 16 mg/dL Normal 4-19 [facility] Comment on above: Order Comment: 202.2 Performed By: #### L 100.0100, L500.2500 #### [facility] [address] [place], [address] BUN Normal 4-19 [facility] Comment on above: Result Comment: Canc elled via OM: Order cancelled - Patient discharged Performed By: #### L 500.2500, L100.0100 #### [facility] [address] [place], [address] BUN/CRE Normal 10-20 [facility] Comment on above: Result Comment: Canc elled via OM: Order cancelled - Patient discharged Performed By: #### L 500.2500, L100.0100 #### [facility] [address] [place], [address] Calcium Normal 7.6-11.0 [facility] Comment on above: Result Comment: Canc elled via OM: Order cancelled - Patient discharged Performed By: #### L 500.2500, L100.0100 #### [facility] [address] [place], [address] CL Normal 98-108 [facility] Comment on above: Result Comment: Canc elled via OM: Order cancelled - Patient discharged Performed By: #### L 500.2500, L100.0100 #### [facility] [address] [place], [address] CO2 Normal 21.0-32.0 [facility] Comment on above: Result Comment: Canc elled via OM: Order cancelled - Patient discharged Performed By: #### L 500.2500, L100.0100 #### [facility] [address] [place], [address] CREAT,SERUM Normal 0.70-1.20 [facility] Comment on above: Result Comment: Canc elled via OM: Order cancelled - Patient discharged Performed By: #### L 500.2500, L100.0100 #### [facility] [address] [place], [address] eGFR Normal >60 [facility] Comment on above: Result Comment: Canc elled via OM: Order cancelled - Patient discharged Performed By: #### L 500.2500, L100.0100 #### [facility] [address] [place], [address] GAP Normal 5-15 [facility] Comment on above: Result Comment: Canc elled via OM: Order cancelled - Patient discharged Performed By: #### L 500.2500, L100.0100 #### [facility] [address] [place], [address] GLU Normal 70-99 [facility] Comment on above: Result Comment: Canc elled via OM: Order cancelled - Patient discharged Performed By: #### L 500.2500, L100.0100 #### [facility] [address] [place], [address] Potassium Normal 3.3-5.1 [facility] Comment on above: Result Comment: Canc elled via OM: Order cancelled - Patient discharged Performed By: #### L 500.2500, L100.0100 #### [facility] [address] [place], [address] Basic Metabolic Profile (BMP) Normal 133-145 [facility] Comment on above: Result Comment: Canc elled via OM: Order cancelled - Patient discharged Performed By: #### L 500.2500, L100.0100 #### [facility] [address] [place], [address] CBC W/Diff, Automatedon 04-2 Absolute Neut Normal 2.0-7.7 [facility] Comment on above: Result Comment: Canc elled via OM: Order cancelled - Patient discharged Performed By: #### L 500.2500, L100.0100 #### [facility] [address] [place], [address] HCT Normal 37-47 [facility] Comment on above: Result Comment: Canc elled via OM: Order cancelled - Patient discharged Performed By: #### L 500.2500, L100.0100 #### [facility] [address] [place], [address] HGB Normal 12.0-15.0 [facility] Comment on above: Result Comment: Canc elled via OM: Order cancelled - Patient discharged Performed By: #### L 500.2500, L100.0100 #### [facility] [address] [place], [address] MCH Normal 27.0-32.0 [facility] Comment on above: Result Comment: Canc elled via OM: Order cancelled - Patient discharged Performed By: #### L 500.2500, L100.0100 #### [facility] [address] [place], [address] MCHC Normal 32-36 [facility] Comment on above: Result Comment: Canc elled via OM: Order cancelled - Patient discharged Performed By: #### L 500.2500, L100.0100 #### [facility] [address] [place], [address] MCV Normal 81-99 [facility] Comment on above: Result Comment: Canc elled via OM: Order cancelled - Patient discharged Performed By: #### L 500.2500, L100.0100 #### [facility] [address] [place], [address] NEUT% Normal 47-70 [facility] Comment on above: Result Comment: Canc elled via OM: Order cancelled - Patient discharged Performed By: #### L 500.2500, L100.0100 #### [facility] [address] [place], [address] PLT Normal 150-450 [facility] Comment on above: Result Comment: Canc elled via OM: Order cancelled - Patient discharged Performed By: #### L 500.2500, L100.0100 #### [facility] [address] [place], [address] RBC Normal 4.2-5.4 [facility] Comment on above: Result Comment: Canc elled via OM: Order cancelled - Patient discharged Performed By: #### L 500.2500, L100.0100 #### [facility] [address] [place], [address] RDW CV Normal 11.6-14.6 [facility] Comment on above: Result Comment: Canc elled via OM: Order cancelled - Patient discharged Performed By: #### L 500.2500, L100.0100 #### [facility] [address] [place], [address] RDW SD Normal 35.1-43.9 [facility] Comment on above: Result Comment: Canc elled via OM: Order cancelled - Patient discharged Performed By: #### L 500.2500, L100.0100 #### [facility] [address] [place], [address] WBC Normal 4.4-11.0 [facility] Comment on above: Result Comment: Canc elled via OM: Order cancelled - Patient discharged Performed By: #### L 500.2500, L100.0100 #### [facility] [address] [place], [address] CBC-Complete Blood Cnt No Di ffon 12-01-2024 Erythrocyte distribution width (RBC) [Ratio] 12.8 % Normal 11.6-14.6 [facility] Comment on above: Order Comment: 202.2 Performed By: #### L 100.0100, L500.2500 #### [facility] [address] [place], [address] Hematocrit (Bld) [Volume fraction] 31.7 % Low 37-47 [facility] Comment on above: Order Comment: 202.2 Performed By: #### L 100.0100, L500.2500 #### [facility] [address] [place], [address] Hemoglobin (Bld) [Mass/Vol] 10.4 g/dL Low 12.0-15.0 [facility] Comment on above: Order Comment: 202.2 Performed By: #### L 100.0100, L500.2500 #### [facility] [address] [place], [address] MCH (RBC) [Entitic mass] 30.1 pg Normal 27.0-32.0 [facility] Comment on above: Order Comment: 202.2 Performed By: #### L 100.0100, L500.2500 #### [facility] [address] [place], [address] MCHC (RBC) [Mass/Vol] 32.8 g/dL Normal 32-36 [facility] Comment on above: Order Comment: 202.2 Performed By: #### L 100.0100, L500.2500 #### [facility] [address] [place], [address] MCV (RBC) [Entitic vol] 91.6 fL Normal 81-99 [facility] Comment on above: Order Comment: 202.2 Performed By: #### L 100.0100, L500.2500 #### [facility] [address] [place], [address] Platelet mean volume (Bld) [Entitic vol] 11.5 fL Normal 6.2-12.0 [facility] Comment on above: Order Comment: 202.2 Performed By: #### L 100.0100, L500.2500 #### [facility] [address] [place], [address] Platelets (Bld) [#/Vol] 246 10*3/uL Normal 150-450 [facility] Comment on above: Order Comment: 202.2 Performed By: #### L 100.0100, L500.2500 #### [facility] [address] [place], [address] RBC (Bld) [#/Vol] 3.46 10*6/uL Low 4.2-5.4 [facility] Comment on above: Order Comment: 202.2 Performed By: #### L 100.0100, L500.2500 #### [facility] [address] [place], [address] RDW SD 42.7 fl Normal 35.1-43.9 [facility] Comment on above: Order Comment: 202.2 Performed By: #### L 100.0100, L500.2500 #### [facility] [address] [place], [address] WBC (Bld) [#/Vol] 6.7 10*3/uL Normal 4.4-11.0 [facility] Comment on above: Order Comment: 202.2 Performed By: #### L 100.0100, L500.2500 #### [facility] [address] [place], [address] Carbon dioxide, total [Moles /volume] in Central venous bloodOrdered By: Jamir Eagle on 12-01-2024 CO2 [Moles/Vol] 25.9 mmol/L 21.0-32.0 [facility] Chloride assayOrdered By: Casarez on 12-01-2024 Chloride [Moles/Vol] 106 mmol/L 98-108 [facility] Erythrocyte distribution wid th ratioOrdered By: Jamir Eagle on 12-01-2024 Erythrocyte distribution width (RBC) [Ratio] 12.8 % 11.6-14.6 [facility] Erythrocyte distribution wid th standard deviationOrdered By: Jamir Eagle on 12-01-2024 Erythrocyte distribution width (RBC) [Ratio] 42.7 fl 35.1-43.9 [facility] Glomerular filtration rate ( GFR) estimation/1.73 sq m using serum, plasma, or whole bOrdered By: Jamir Eagle on 12-01-2024 GFR/1.73 sq M.predicted among non-blacks MDRD (S/P/Bld) [Vol rate/Area] 46 mL/min/{1.73_m2} Low >60 [facility] Comment on above: mL/min/1.73m2 CKD-EP I Creatinine Equation (2020) Hematocrit Auto (Bld) [Volum e fraction]Ordered By: Jamir Eagle on 12-01-2024 Hematocrit (Bld) [Volume fraction] 31.7 % Low 37-47 [facility] Hemoglobin measurementOrdere d By: Jamir Eagle on 12-01-2024 Hemoglobin (Bld) [Mass/Vol] 10.4 g/dL Low 12.0-15.0 [facility] MCV (mean corpuscular volume ) determinationOrdered By: Jamir Eagle on 12-01-2024 MCV (RBC) [Entitic vol] 91.6 fL 81-99 [facility] Mean corpuscular hemoglobin (MCH) determinationOrdered By: Jamir Eagle on 12-01-2024 MCH (RBC) [Entitic mass] 30.1 pg 27.0-32.0 [facility] Mean corpuscular hemoglobin concentration (MCHC) determinationOrdered By: Jamir Eagle on 12-01-2024 MCHC (RBC) [Mass/Vol] 32.8 g/dL 32-36 [facility] Mean platelet volume determi nationOrdered By: Jamir Eagle on 12-01-2024 Platelet mean volume (Bld) [Entitic vol] 11.5 fL 6.2-12.0 [facility] Platelet countOrdered By: Casarez on 12-01-2024 Platelets (Bld) [#/Vol] 246 10*3/uL 150-450 [facility] Potassium measurement (mass/ volume)Ordered By: Jamir Eagle on 12-01-2024 Potassium (Unsp spec) [Mass/Vol] 4.0 mmol/L 3.3-5.1 [facility] RBC Auto (Bld) [#/Vol]Ordere d By: Jamir Eagle on 12-01-2024 RBC (Bld) [#/Vol] 3.46 10*6/uL Low 4.2-5.4 [facility] Serum creatinine measurement (mass/volume)Ordered By: Jamir Eagle on 12-01-2024 Creatinine [Mass/Vol] 1.15 mg/dL 0.70-1.20 [facility] Serum glucose measurement (m ass/volume)Ordered By: Jamir Eagle on 12-01-2024 Glucose [Mass/Vol] 91 mg/dL 70-99 [facility] Serum or plasma calcium kailyn urement (mass/volume)Ordered By: Jamir Eagle on 12-01-2024 Calcium [Mass/Vol] 9.0 mg/dL 7.6-11.0 [facility] Serum or plasma urea nitroge n measurement (mass/volume)Ordered By: Jamir Eagle on 12-01-2024 Urea nitrogen [Mass/Vol] 16 mg/dL 4- [facility] Sodium levelOrdered By: Jamir Eagle on 12-01-2024 Sodium [Moles/Vol] 141 mmol/L 133-145 [facility] White blood cell (WBC) count Ordered By: Jamir Eagle on 12-01-2024 WBC (Bld) [#/Vol] 6.7 10*3/uL 4.4-11.0 [facility] Basic Metabolic Profile (BMP )on 11-30-2024 BUN Normal - [facility] Comment on above: Result Comment: Canc elled via OM: Order cancelled - Patient discharged Performed By: #### L 100.0100, L500.2500 #### [facility] [address] [place], [address] BUN/CRE Normal - [facility] Comment on above: Result Comment: Canc elled via OM: Order cancelled - Patient discharged Performed By: #### L 100.0100, L500.2500 #### [facility] [address] [place], [address] Calcium Normal 7.6-11.0 [facility] Comment on above: Result Comment: Canc elled via OM: Order cancelled - Patient discharged Performed By: #### L 100.0100, L500.2500 #### [facility] [address] [place], [address] CL Normal 98-108 [facility] Comment on above: Result Comment: Canc elled via OM: Order cancelled - Patient discharged Performed By: #### L 100.0100, L500.2500 #### [facility] [address] [place], [address] CO2 Normal 21.0-32.0 [facility] Comment on above: Result Comment: Canc elled via OM: Order cancelled - Patient discharged Performed By: #### L 100.0100, L500.2500 #### [facility] [address] [place], [address] CREAT,SERUM Normal 0.70-1.20 [facility] Comment on above: Result Comment: Canc elled via OM: Order cancelled - Patient discharged Performed By: #### L 100.0100, L500.2500 #### [facility] [address] [place], [address] eGFR Normal >60 [facility] Comment on above: Result Comment: Canc elled via OM: Order cancelled - Patient discharged Performed By: #### L 100.0100, L500.2500 #### [facility] [address] [place], [address] GAP Normal 5-15 [facility] Comment on above: Result Comment: Canc elled via OM: Order cancelled - Patient discharged Performed By: #### L 100.0100, L500.2500 #### [facility] [address] [place], [address] GLU Normal 70-99 [facility] Comment on above: Result Comment: Canc elled via OM: Order cancelled - Patient discharged Performed By: #### L 100.0100, L500.2500 #### [facility] [address] [place], [address] Potassium Normal 3.3-5.1 [facility] Comment on above: Result Comment: Canc elled via OM: Order cancelled - Patient discharged Performed By: #### L 100.0100, L500.2500 #### [facility] [address] [place], [address] Basic Metabolic Profile (BMP) Normal 133-145 [facility] Comment on above: Result Comment: Canc elled via OM: Order cancelled - Patient discharged Performed By: #### L 100.0100, L500.2500 #### [facility] [address] [place], [address] CBC W/Diff, Automatedon 04-2 0-2024 Absolute Neut Normal 2.0-7.7 [facility] Comment on above: Result Comment: Canc elled via OM: Order cancelled - Patient discharged Performed By: #### L 100.0100, L500.2500 #### [facility] [address] [place], [address] HCT Normal 37-47 [facility] Comment on above: Result Comment: Canc elled via OM: Order cancelled - Patient discharged Performed By: #### L 100.0100, L500.2500 #### [facility] [address] [place], [address] HGB Normal 12.0-15.0 [facility] Comment on above: Result Comment: Canc elled via OM: Order cancelled - Patient discharged Performed By: #### L 100.0100, L500.2500 #### [facility] [address] [place], [address] MCH Normal 27.0-32.0 [facility] Comment on above: Result Comment: Canc elled via OM: Order cancelled - Patient discharged Performed By: #### L 100.0100, L500.2500 #### [facility] [address] [place], [address] MCHC Normal 32-36 [facility] Comment on above: Result Comment: Canc elled via OM: Order cancelled - Patient discharged Performed By: #### L 100.0100, L500.2500 #### [facility] [address] [place], [address] MCV Normal 81-99 [facility] Comment on above: Result Comment: Canc elled via OM: Order cancelled - Patient discharged Performed By: #### L 100.0100, L500.2500 #### [facility] [address] [place], [address] NEUT% Normal 47-70 [facility] Comment on above: Result Comment: Canc elled via OM: Order cancelled - Patient discharged Performed By: #### L 100.0100, L500.2500 #### [facility] [address] [place], [address] PLT Normal 150-450 [facility] Comment on above: Result Comment: Canc elled via OM: Order cancelled - Patient discharged Performed By: #### L 100.0100, L500.2500 #### [facility] [address] [place], [address] RBC Normal 4.2-5.4 [facility] Comment on above: Result Comment: Canc elled via OM: Order cancelled - Patient discharged Performed By: #### L 100.0100, L500.2500 #### [facility] [address] [place], [address] RDW CV Normal 11.6-14.6 [facility] Comment on above: Result Comment: Canc elled via OM: Order cancelled - Patient discharged Performed By: #### L 100.0100, L500.2500 #### [facility] [address] [place], [address] RDW SD Normal 35.1-43.9 [facility] Comment on above: Result Comment: Canc elled via OM: Order cancelled - Patient discharged Performed By: #### L 100.0100, L500.2500 #### [facility] [address] [place], [address] WBC Normal 4.4-11.0 [facility] Comment on above: Result Comment: Canc elled via OM: Order cancelled - Patient discharged Performed By: #### L 100.0100, L500.2500 #### [facility] [address] [place], [address] Absolute lymphocyte countOrd ered By: Britt Guthrie on 11-29-2024 Lymphocytes Auto (Unsp spec) [#/Vol] 1.35 10*3/uL 0.83-4.51 [facility] Absolute neutrophil countOrd ered By: Britt Guthrie on 11-29-2024 Neutrophils (Bld) [#/Vol] 3.7 10*3/uL 2.0-7.7 [facility] Anion gap in Serum or Plasma Ordered By: Britt Guthrie on 11-29-2024 Anion gap [Moles/Vol] 9 mmol/L 12-25 [facility] Automated lymphocyte count a s percentage of total leukocytesOrdered By: Britt Guthrie on 11-29-2024 Lymphocytes/100 WBC Auto (Unsp spec) 22.2 % [facility] BUN/creatinine ratioOrdered By: Britt Guthrie on 11-29-2024 Urea nitrogen/Creatinine [Mass ratio] 18.4 mg/mg - [facility] Basic Metabolic Profile (BMP )on 11-29-2024 BUN/CRE 18.4 RATIO Normal 06-01 [facility] Comment on above: Performed By: #### L 100.0100, L500.2500 #### [facility] [address] [place], [address] Calcium [Mass/Vol] 8.8 mg/dL Normal 7.6-11.0 [facility] Comment on above: Performed By: #### L 100.0100, L500.2500 #### [facility] [address] [place], [address] Chloride [Moles/Vol] 106 mmol/L Normal 98-108 [facility] Comment on above: Performed By: #### L 100.0100, L500.2500 #### [facility] [address] [place], [address] CO2 [Moles/Vol] 23.3 mmol/L Normal 21.0-32.0 [facility] Comment on above: Performed By: #### L 100.0100, L500.2500 #### [facility] [address] [place], [address] Creatinine [Mass/Vol] 1.25 mg/dL High 0.70-1.20 [facility] Comment on above: Performed By: #### L 100.0100, L500.2500 #### [facility] [address] [place], [address] ECRCL 22.35 ml/min Low 50-250 [facility] Comment on above: Performed By: #### L 100.0100, L500.2500 #### [facility] [address] [place], [address] GAP 9 Normal 5-15 [facility] Comment on above: Performed By: #### L 100.0100, L500.2500 #### [facility] [address] [place], [address] GFR/1.73 sq M.predicted among non-blacks MDRD (S/P/Bld) [Vol rate/Area] 41 mL/min/{1.73_m2} Low >60 [facility] Comment on above: Result Comment: mL/m in/1.73m2 CKD-EPI Creatinine Equation (2020) Performed By: #### L 100.0100, L500.2500 #### [facility] [address] [place], [address] Glucose [Mass/Vol] 89 mg/dL Normal 70-99 [facility] Comment on above: Performed By: #### L 100.0100, L500.2500 #### [facility] [address] [place], [address] Potassium [Moles/Vol] 4.1 mmol/L Normal 3.3-5.1 [facility] Comment on above: Performed By: #### L 100.0100, L500.2500 #### [facility] [address] [place], [address] Sodium [Moles/Vol] 138 mmol/L Normal 133-145 [facility] Comment on above: Performed By: #### L 100.0100, L500.2500 #### [facility] [address] [place], [address] Urea nitrogen [Mass/Vol] 23 mg/dL High - [facility] Comment on above: Performed By: #### L 100.0100, L500.2500 #### [facility] [address] [place], [address] Basophil percentageOrdered B y: Britt Guthrie on 11-29-2024 Basophils/100 WBC (Bld) 0.5 % 0-1 [facility] CBC W/Diff, Automatedon 11-11 Absolute Lymph 1.35 X10 3/uL Normal 0.83-4.51 [facility] Comment on above: Performed By: #### L 100.0100, L500.2500 #### [facility] [address] [place], [address] Absolute Neut 3.7 X10 3/uL Normal 2.0-7.7 [facility] Comment on above: Performed By: #### L 100.0100, L500.2500 #### [facility] [address] [place], [address] Basophils/100 WBC (Bld) 0.5 % Normal 0-1 [facility] Comment on above: Performed By: #### L 100.0100, L500.2500 #### [facility] [address] [place], [address] Eosinophils/100 WBC (Bld) 3.8 % Normal 0-5 [facility] Comment on above: Performed By: #### L 100.0100, L500.2500 #### [facility] [address] [place], [address] Erythrocyte distribution width (RBC) [Ratio] 12.8 % Normal 11.6-14.6 [facility] Comment on above: Performed By: #### L 100.0100, L500.2500 #### [facility] [address] [place], [address] Hematocrit (Bld) [Volume fraction] 30.1 % Low 37-47 [facility] Comment on above: Performed By: #### L 100.0100, L500.2500 #### [facility] [address] [place], [address] Hemoglobin (Bld) [Mass/Vol] 9.9 g/dL Low 12.0-15.0 [facility] Comment on above: Performed By: #### L 100.0100, L500.2500 #### [facility] [address] [place], [address] IG% 0.800 Normal 0.0-0.9 [facility] Comment on above: Result Comment: IG% - Immature Granulocytes (promyelocytes, myelocytes and metamyelocytes) > 1% indicates that a LEFT SHIFT is Present. Performed By: #### L 100.0100, L500.2500 #### [facility] [address] [place], [address] Lymphocytes/100 WBC (Bld) 22.2 % Normal 19-41 [facility] Comment on above: Performed By: #### L 100.0100, L500.2500 #### [facility] [address] [place], [address] MCH (RBC) [Entitic mass] 30.3 pg Normal 27.0-32.0 [facility] Comment on above: Performed By: #### L 100.0100, L500.2500 #### [facility] [address] [place], [address] MCHC (RBC) [Mass/Vol] 32.9 g/dL Normal 32-36 [facility] Comment on above: Performed By: #### L 100.0100, L500.2500 #### [facility] [address] [place], [address] MCV (RBC) [Entitic vol] 92.0 fL Normal 81-99 [facility] Comment on above: Performed By: #### L 100.0100, L500.2500 #### [facility] [address] [place], [address] Monocytes/100 WBC (Bld) 12.2 % High 0-10 [facility] Comment on above: Performed By: #### L 100.0100, L500.2500 #### [facility] [address] [place], [address] Neutrophils/100 WBC (Bld) 60.5 % Normal 47-70 [facility] Comment on above: Performed By: #### L 100.0100, L500.2500 #### [facility] [address] [place], [address] Nucleated RBC (Bld) [#/Vol] 0 10*3/uL Normal 0-5 [facility] Comment on above: Performed By: #### L 100.0100, L500.2500 #### [facility] [address] [place], [address] Platelet mean volume (Bld) [Entitic vol] 11.5 fL Normal 6.2-12.0 [facility] Comment on above: Performed By: #### L 100.0100, L500.2500 #### [facility] [address] [place], [address] Platelets (Bld) [#/Vol] 200 10*3/uL Normal 150-450 [facility] Comment on above: Performed By: #### L 100.0100, L500.2500 #### [facility] [address] [place], [address] RBC (Bld) [#/Vol] 3.27 10*6/uL Low 4.2-5.4 [facility] Comment on above: Performed By: #### L 100.0100, L500.2500 #### [facility] [address] [place], [address] RDW SD 43.4 fl Normal 35.1-43.9 [facility] Comment on above: Performed By: #### L 100.0100, L500.2500 #### [facility] [address] [place], [address] WBC (Bld) [#/Vol] 6.1 10*3/uL Normal 4.4-11.0 [facility] Comment on above: Performed By: #### L 100.0100, L500.2500 #### [facility] [address] [place], [address] Carbon dioxide, total [Moles /volume] in Central venous bloodOrdered By: Britt Guthrie on 11-29-2024 CO2 [Moles/Vol] 23.3 mmol/L 21.0-32.0 [facility] Chloride assayOrdered By: Na na Jerri on 11-29-2024 Chloride [Moles/Vol] 106 mmol/L 98-108 [facility] Eosinophil percentageOrdered By: Britt Guthrie 11-29-2024 Eosinophils/100 WBC (Bld) 3.8 % 0-5 [facility] Erythrocyte distribution wid th (RBC) [Ratio]Ordered By: Britt Guthrie on 11-29-2024 Erythrocyte distribution width (RBC) [Entitic vol] 43.4 fL 35.1-43.9 [facility] Erythrocyte distribution wid th ratioOrdered By: Britt Guthrie 11-29-2024 Erythrocyte distribution width (RBC) [Ratio] 12.8 % 11.6-14.6 [facility] Erythrocyte distribution wid th standard deviationOrdered By: Britt Guthrie 11-29-2024 Erythrocyte distribution width (RBC) [Ratio] 43.4 fl 35.1-43.9 [facility] Estimation of creatinine jovani aranceOrdered By: Britt Guthrie on 11-29-2024 Estimated Creatinine Clearance Calc 22.35 ml/min Low 50-250 [facility] GFR/1.73 sq M.predicted papo g non-blacks MDRD (S/P/Bld) [Vol rate/Area]Ordered By: Britt Guthrie 11-29-2024 Estimated GFR (MDRD) Non-Af Amer 41 Low >60 [facility] Comment on above: mL/min/1.73m2 CKD-EP I Creatinine Equation (2020) Glomerular filtration rate ( GFR) estimation/1.73 sq m using serum, plasma, or whole bOrdered By: Britt Guthrie 11-29-2024 GFR/1.73 sq M.predicted among non-blacks MDRD (S/P/Bld) [Vol rate/Area] 41 mL/min/{1.73_m2} Low >60 [facility] Comment on above: mL/min/1.73m2 CKD-EP I Creatinine Equation (2020) Hematocrit Auto (Bld) [Volum e fraction]Ordered By: Britt Guthrie 11-29-2024 Hematocrit (Bld) [Volume fraction] 30.1 % Low 37-47 [facility] Hemoglobin measurementOrdere d By: Britt Guthrie on 11-29-2024 Hemoglobin (Bld) [Mass/Vol] 9.9 g/dL Low 12.0-15.0 [facility] Immature granulocytes/100 WB C Auto (Bld)Ordered By: Britt Guthrie on 11-29-2024 Immature granulocytes/100 WBC (Bld) 0.800 % 0.0-0.9 [facility] Comment on above: IG% - Immature Granu locytes (promyelocytes, myelocytes and metamyelocytes) > 1% indicates that a LEFT SHIFT is Present. Lymphocytes Auto (Unsp spec) [#/Vol]Ordered By: Britt Guthrie on 11-29-2024 Lymphocytes (Bld) [#/Vol] 1.35 10*3/uL 0.83-4.51 [facility] Lymphocytes/100 WBC Auto (Un sp spec)Ordered By: Britt Guthrie 11-29-2024 Lymphocytes/100 WBC (Bld) 22.2 % 19-41 [facility] MCV (mean corpuscular volume ) determinationOrdered By: Britt Guthrie 11-29-2024 MCV (RBC) [Entitic vol] 92.0 fL 81-99 [facility] Mean corpuscular hemoglobin (MCH) determinationOrdered By: Britt Guthrie 11-29-2024 MCH (RBC) [Entitic mass] 30.3 pg 27.0-32.0 [facility] Mean corpuscular hemoglobin concentration (MCHC) determinationOrdered By: Britt Guthrie on 11-29-2024 MCHC (RBC) [Mass/Vol] 32.9 g/dL 32-36 [facility] Mean platelet volume determi nationOrdered By: Britt Guthrie 11-29-2024 Platelet mean volume (Bld) [Entitic vol] 11.5 fL 6.2-12.0 [facility] Monocyte percentageOrdered B y: Britt Guthrie on 11-29-2024 Monocytes/100 WBC (Bld) 12.2 % High 0-10 [facility] Neutrophil percentageOrdered By: Britt Guthrie on 11-29-2024 Neutrophils/100 WBC (Bld) 60.5 % 47-70 [facility] Nucleated red blood cell per centageOrdered By: Britt Guthrie on 11-29-2024 Nucleated RBC/100 WBC (Bld) [Ratio] 0 % 0-5 [facility] Platelet countOrdered By: Na arlene Guthrie on 11-29-2024 Platelets (Bld) [#/Vol] 200 10*3/uL 150-450 [facility] Potassium (Unsp spec) [Mass/ Vol]Ordered By: Britt Guthrie on 11-29-2024 Potassium [Moles/Vol] 4.1 mmol/L 3.3-5.1 [facility] Potassium measurement (mass/ volume)Ordered By: Britt Guthrie on 11-29-2024 Potassium (Unsp spec) [Mass/Vol] 4.1 mmol/L 3.3-5.1 [facility] RBC Auto (Bld) [#/Vol]Ordere d By: Britt Guthrie on 11-29-2024 RBC (Bld) [#/Vol] 3.27 10*6/uL Low 4.2-5.4 [facility] Serum creatinine measurement (mass/volume)Ordered By: Britt Guthrie on 11-29-2024 Creatinine [Mass/Vol] 1.25 mg/dL High 0.70-1.20 [facility] Serum glucose measurement (m ass/volume)Ordered By: Britt Guthrie on 11-29-2024 Glucose [Mass/Vol] 89 mg/dL 70-99 [facility] Serum or plasma calcium kailyn urement (mass/volume)Ordered By: Britt Guthrie on 11-29-2024 Calcium [Mass/Vol] 8.8 mg/dL 7.6-11.0 [facility] Serum or plasma urea nitroge n measurement (mass/volume)Ordered By: Britt Guthrie on 11-29-2024 Urea nitrogen [Mass/Vol] 23 mg/dL High 4-19 [facility] Sodium levelOrdered By: Britt Guthrie on 11-29-2024 Sodium [Moles/Vol] 138 mmol/L 133-145 [facility] White blood cell (WBC) count Ordered By: Britt Guthrie on 11-29-2024 WBC (Bld) [#/Vol] 6.1 10*3/uL 4.4-11.0 [facility] Basic Metabolic Profile (BMP )on 11-28-2024 BUN/CRE 14.1 RATIO Normal 10-20 [facility] Comment on above: Performed By: #### L 500.2500, L100.0100 #### [facility] [address] [place], [address] Calcium [Mass/Vol] 8.8 mg/dL Normal 7.6-11.0 [facility] Comment on above: Performed By: #### L 500.2500, L100.0100 #### [facility] [address] [place], [address] Chloride [Moles/Vol] 106 mmol/L Normal 98-108 [facility] Comment on above: Performed By: #### L 500.2500, L100.0100 #### [facility] [address] [place], [address] CO2 [Moles/Vol] 20.8 mmol/L Low 21.0-32.0 [facility] Comment on above: Performed By: #### L 500.2500, L100.0100 #### [facility] [address] [place], [address] Creatinine [Mass/Vol] 1.16 mg/dL Normal 0.70-1.20 [facility] Comment on above: Performed By: #### L 500.2500, L100.0100 #### [facility] [address] [place], [address] ECRCL 24.08 ml/min Low 50-250 [facility] Comment on above: Performed By: #### L 500.2500, L100.0100 #### [facility] [address] [place], [address] GAP 11 Normal 5-15 [facility] Comment on above: Performed By: #### L 500.2500, L100.0100 #### [facility] [address] [place], [address] GFR/1.73 sq M.predicted among non-blacks MDRD (S/P/Bld) [Vol rate/Area] 45 mL/min/{1.73_m2} Low >60 [facility] Comment on above: Result Comment: mL/m in/1.73m2 CKD-EPI Creatinine Equation (2020) Performed By: #### L 500.2500, L100.0100 #### [facility] [address] [place], [address] Glucose [Mass/Vol] 96 mg/dL Normal 70-99 [facility] Comment on above: Performed By: #### L 500.2500, L100.0100 #### [facility] [address] [place], [address] Potassium [Moles/Vol] 4.2 mmol/L Normal 3.3-5.1 [facility] Comment on above: Performed By: #### L 500.2500, L100.0100 #### [facility] [address] [place], [address] Sodium [Moles/Vol] 138 mmol/L Normal 133-145 [facility] Comment on above: Performed By: #### L 500.2500, L100.0100 #### [facility] [address] [place], [address] Urea nitrogen [Mass/Vol] 16 mg/dL Normal 4-19 [facility] Comment on above: Performed By: #### L 500.2500, L100.0100 #### [facility] [address] [place], [address] CBC-Complete Blood Cnt No Di ffon 11-28-2024 Erythrocyte distribution width (RBC) [Ratio] 12.7 % Normal 11.6-14.6 [facility] Comment on above: Performed By: #### L 500.2500, L100.0100 #### [facility] [address] [place], [address] Hematocrit (Bld) [Volume fraction] 31.2 % Low 37-47 [facility] Comment on above: Performed By: #### L 500.2500, L100.0100 #### [facility] [address] [place], [address] Hemoglobin (Bld) [Mass/Vol] 10.3 g/dL Low 12.0-15.0 [facility] Comment on above: Performed By: #### L 500.2500, L100.0100 #### [facility] [address] [place], [address] MCH (RBC) [Entitic mass] 30.0 pg Normal 27.0-32.0 [facility] Comment on above: Performed By: #### L 500.2500, L100.0100 #### [facility] [address] [place], [address] MCHC (RBC) [Mass/Vol] 33.0 g/dL Normal 32-36 [facility] Comment on above: Performed By: #### L 500.2500, L100.0100 #### [facility] [address] [place], [address] MCV (RBC) [Entitic vol] 91.0 fL Normal 81-99 [facility] Comment on above: Performed By: #### L 500.2500, L100.0100 #### [facility] [address] [place], [address] Platelet mean volume (Bld) [Entitic vol] 11.6 fL Normal 6.2-12.0 [facility] Comment on above: Performed By: #### L 500.2500, L100.0100 #### [facility] [address] [place], [address] Platelets (Bld) [#/Vol] 225 10*3/uL Normal 150-450 [facility] Comment on above: Performed By: #### L 500.2500, L100.0100 #### [facility] [address] [place], [address] RBC (Bld) [#/Vol] 3.43 10*6/uL Low 4.2-5.4 [facility] Comment on above: Performed By: #### L 500.2500, L100.0100 #### [facility] [address] [place], [address] RDW SD 42.2 fl Normal 35.1-43.9 [facility] Comment on above: Performed By: #### L 500.2500, L100.0100 #### [facility] [address] [place], [address] WBC (Bld) [#/Vol] 8.2 10*3/uL Normal 4.4-11.0 [facility] Comment on above: Performed By: #### L 500.2500, L100.0100 #### [facility] [address] [place], [address] Electrocardiogram reportOrde red By: Jose Earl on 11-28-[address] [facility] [address] [place] [address] 12 Lead EKG 11/27/241906 MR#: [id number] Acct: [id number] Name: RADHA MAYERS Rep #:[id number] : 1935 89 From: Jose wang MD Attending Dr: Dr. Britt Guthrie MD Status: ADM SUZIE Ordering Dr: Albin Plummer MD Date: Location: [facility] Sex: F C Admitted: 11/27/24 Test Reason [...] for LVH, may be normal variant ( [place] product ) Borderline ECG Confirmed by Jose Earl ([id number]), video news editor KAITLIN SMITH ([id number]) on 2:47:15 PM Referred By: Confirmed By: Jose Earl 11/28/241246 Date _ Jose Earl MD CC: Dr. Albin Plummer MD; Dr. Britt Guthrie MD; Dr. Rehan Lucero, [facility] Other 12 Lead EKGon 11-27-[address] [facility] [address] [place] [address] 12 Lead EKG 11/27/24 1907 MR#: [id number] Acct: [id number] Name: RADHA MAYERS Rep #: [id number] : 1935 89 From: Jose Earl MD Attending Dr: Dr. Britt Guthrie MD Status: AD [facility] Ordering Dr: Albin Plummer MD Date: 11/27/24 Location: [facility] Sex: F C Admitted: 11/27/24 Test Reason [...] for LVH, may be normal variant ( [place] product ) Borderline ECG Confirmed by Jose Earl ([id number]), video news editor KAITLIN SMITH ([id number]) on 11/28/2024 12:47:15 PM Referred By: Confirmed By: Jose Earl 11/28/241246 Date Jose Earl MD CC: Dr. Albin Plummer MD; Dr. Britt Guthrie MD; Dr. Rehan Lucero DO Signed Normal [facility] Absolute neutrophil countOrd ered By: Albin Plummer on 11-27-2024 Neutrophils (Bld) [#/Vol] 3.1 10*3/uL 2.0-7.7 [facility] Anion gap in Serum or Plasma Ordered By: Albin Plummer on 11-27-2024 Anion gap [Moles/Vol] 11 mmol/L 12-25 [facility] BUN/creatinine ratioOrdered By: Albin Plummer on 11-27-2024 Urea nitrogen/Creatinine [Mass ratio] 14.3 mg/mg - [facility] Basic Metabolic Profile (BMP )on 11-27-2024 BUN/CRE 14.3 RATIO Normal - [facility] Comment on above: Performed By: #### L 100.0100, L500.2500 #### [facility] [address] [place], [address] Calcium [Mass/Vol] 9.5 mg/dL Normal 7.6-11.0 [facility] Comment on above: Performed By: #### L 100.0100, L500.2500 #### [facility] [address] [place], [address] Chloride [Moles/Vol] 104 mmol/L Normal 98-108 [facility] Comment on above: Performed By: #### L 100.0100, L500.2500 #### [facility] [address] [place], [address] CO2 [Moles/Vol] 24.0 mmol/L Normal 21.0-32.0 [facility] Comment on above: Performed By: #### L 100.0100, L500.2500 #### [facility] [address] [place], [address] Creatinine [Mass/Vol] 1.19 mg/dL Normal 0.70-1.20 [facility] Comment on above: Performed By: #### L 100.0100, L500.2500 #### [facility] [address] [place], [address] ECRCL 23.47 ml/min Low 50-250 [facility] Comment on above: Performed By: #### L 100.0100, L500.2500 #### [facility] [address] [place], [address] GAP 11 Normal 5-15 [facility] Comment on above: Performed By: #### L 100.0100, L500.2500 #### [facility] [address] [place], [address] GFR/1.73 sq M.predicted among non-blacks MDRD (S/P/Bld) [Vol rate/Area] 44 mL/min/{1.73_m2} Low >60 [facility] Comment on above: Result Comment: mL/m in/1.73m2 CKD-EPI Creatinine Equation (2020) Performed By: #### L 100.0100, L500.2500 #### [facility] [address] [place], [address] Glucose [Mass/Vol] 91 mg/dL Normal 70-99 [facility] Comment on above: Performed By: #### L 100.0100, L500.2500 #### [facility] [address] [place], [address] Potassium [Moles/Vol] 4.4 mmol/L Normal 3.3-5.1 [facility] Comment on above: Result Comment: Hemo lysis present, Results??could be affected. ?? Performed By: #### L 100.0100, L500.2500 #### [facility] [address] [place], [address] Sodium [Moles/Vol] 140 mmol/L Normal 133-145 [facility] Comment on above: Performed By: #### L 100.0100, L500.2500 #### [facility] [address] [place], [address] Urea nitrogen [Mass/Vol] 17 mg/dL Normal - [facility] Comment on above: Performed By: #### L 100.0100, L500.2500 #### [facility] [address] [place], [address] Basophil percentageOrdered B y: Albin Plummer on 11-27-2024 Basophils/100 WBC (Bld) 1.0 % 0-1 [facility] Brain/Head without Contrasto n 11-27-2024 Brain/Head without Contrast [facility] Imaging Services [address] [place] [address] Brain/Head without Contrast MR#: [id number] Acct: [id number] Name: RADHA MAYERS Sakshi Rep #: [id number] : 1935 F 89 From: Tyson Pimentel DO PCP: Dr. Rehan Lucero DO Status: REG ER Study: Brain/Head without Contrast Date of Exam: 11/11 03/06 Exam# [id number] Ordering Dr: Albin Plummer MD PROCEDURE: BRAIN/HEAD [...] IMPRESSION: NO ACUTE INTRACRANIAL HEMORRHAGE Reading Location: [facility] CC: Dr. Albin Plummer MD; Dr. Rehan Lucero DO Plaster Machine Operator: Signed Normal [facility] CBC W/Diff, Automatedon 11-11 Absolute Lymph 1.23 X10 3/uL Normal 0.83-4.51 [facility] Comment on above: Performed By: #### L 100.0100, L500.2500 #### [facility] [address] [place], [address] Absolute Neut 3.1 X10 3/uL Normal 2.0-7.7 [facility] Comment on above: Performed By: #### L 100.0100, L500.2500 #### [facility] [address] [place], [address] Basophils/100 WBC (Bld) 1.0 % Normal 0-1 [facility] Comment on above: Performed By: #### L 100.0100, L500.2500 #### [facility] [address] [place], [address] Eosinophils/100 WBC (Bld) 2.5 % Normal 0-5 [facility] Comment on above: Performed By: #### L 100.0100, L500.2500 #### [facility] [address] [place], [address] Erythrocyte distribution width (RBC) [Ratio] 12.8 % Normal 11.6-14.6 [facility] Comment on above: Performed By: #### L 100.0100, L500.2500 #### [facility] [address] [place], [address] Hematocrit (Bld) [Volume fraction] 36.5 % Low 37-47 [facility] Comment on above: Performed By: #### L 100.0100, L500.2500 #### [facility] [address] [place], [address] Hemoglobin (Bld) [Mass/Vol] 12.0 g/dL Normal 12.0-15.0 [facility] Comment on above: Performed By: #### L 100.0100, L500.2500 #### [facility] [address] [place], [address] IG% 1.200 High 0.0-0.9 [facility] Comment on above: Result Comment: IG% - Immature Granulocytes (promyelocytes, myelocytes and metamyelocytes) > 1% indicates that a LEFT SHIFT is Present. Performed By: #### L 100.0100, L500.2500 #### [facility] [address] [place], [address] Lymphocytes/100 WBC (Bld) 23.8 % Normal 19-41 [facility] Comment on above: Performed By: #### L 100.0100, L500.2500 #### [facility] [address] [place], [address] MCH (RBC) [Entitic mass] 30.2 pg Normal 27.0-32.0 [facility] Comment on above: Performed By: #### L 100.0100, L500.2500 #### [facility] [address] [place], [address] MCHC (RBC) [Mass/Vol] 32.9 g/dL Normal 32-36 [facility] Comment on above: Performed By: #### L 100.0100, L500.2500 #### [facility] [address] [place], [address] MCV (RBC) [Entitic vol] 91.9 fL Normal 81-99 [facility] Comment on above: Performed By: #### L 100.0100, L500.2500 #### [facility] [address] [place], [address] Monocytes/100 WBC (Bld) 12.2 % High 0-10 [facility] Comment on above: Performed By: #### L 100.0100, L500.2500 #### [facility] [address] [place], [address] Neutrophils/100 WBC (Bld) 59.3 % Normal 47-70 [facility] Comment on above: Performed By: #### L 100.0100, L500.2500 #### [facility] [address] [place], [address] Nucleated RBC (Bld) [#/Vol] 0 10*3/uL Normal 0-5 [facility] Comment on above: Performed By: #### L 100.0100, L500.2500 #### [facility] [address] [place], [address] Platelet mean volume (Bld) [Entitic vol] 12.1 fL High 6.2-12.0 [facility] Comment on above: Performed By: #### L 100.0100, L500.2500 #### [facility] [address] [place], [address] Platelets (Bld) [#/Vol] 233 10*3/uL Normal 150-450 [facility] Comment on above: Performed By: #### L 100.0100, L500.2500 #### [facility] [address] [place], [address] RBC (Bld) [#/Vol] 3.97 10*6/uL Low 4.2-5.4 [facility] Comment on above: Performed By: #### L 100.0100, L500.2500 #### [facility] [address] [place], [address] RDW SD 43.1 fl Normal 35.1-43.9 [facility] Comment on above: Performed By: #### L 100.0100, L500.2500 #### [facility] [address] [place], [address] WBC (Bld) [#/Vol] 5.2 10*3/uL Normal 4.4-11.0 [facility] Comment on above: Performed By: #### L 100.0100, L500.2500 #### [facility] [address] [place], [place], [address] Carbon dioxide, total [Moles /volume] in Central venous bloodOrdered By: Albin Plummer on 11-27-2024 CO2 [Moles/Vol] 24.0 mmol/L 21.0-32.0 [facility] Chloride assayOrdered By: Trenton Plummer on 11-27-2024 Chloride [Moles/Vol] 104 mmol/L 98-108 [facility] Clavicleon 11-27-[address] [facility] [address] [place] [address] Clavicle MR#: [id number] Acct: [id number] Name: RADHA MAYERS Rep #: [id number] : 1935 F 89 From: Yomi Mae MD PCP: Dr. Rehan Lucero DO Status: REG ER Study: Clavicle Date of Exam: 11/27/24 Exam# [id number] Ordering Dr: Albin Plummer MD PROCEDURE: CLAVICLE 11/27/2024 REASON FOR EXAM: TRAUMA, PAIN TECHNIQUE: 2 view(s) of each clavicle FINDINGS: Left CLAVICLE: Bones right: Acute comminuted inferiorly displaced fracture of the distal left clavicle. Joints right: No severe arthrosis. Soft tissues right: Unremarkable. : RAD/Clavicle IMPRESSION: Acute comminuted inferiorly displaced fracture of the distal left clavicle. Reading Location: [id number] CC: Dr. Albin Plummer MD; Dr. Rehan Lucero DO Plaster Machine Operator: Signed Normal [facility] Emergency Department Summary on 11-27-2024 Emergency Department Summary [facility] Medical Records Department [address] [place] [address] Emergency Department Summary 11/27/24 MR#: [id number] Acct: [id number] Name: RADHA MAYERS Rep #: [id number] : 1935 89 From: Albin Plummer MD PCP: Dr. Rehan Lucero, DO Status:ADM SUZIE Location: MS3 [id number] HPI History of Present Illness Chief Complaint: [...] her left shoulder. She is left-hand dominant. [facility] Medical History (HFpEF) heart failure with preserved ejection fraction Osteoarthritis of hip (12/25/16) Chronic kidney disease (CKD) Weakness generalized COVID-19 (12/2020) EE (eosinophilic esophagitis) Paroxysmal atrial fibrillation Syncope (03/2019) Bilateral pleural effusion Chronic renal insufficiency Hiatal hernia Secondary pulmonary arterial hypertension Osteoarthritis Depression GERD (gastroesophageal reflux disease) Hypothyroidism Fibromyalgia Deep vein thrombosis (DVT) (04/2012) Atherosclerosis of coronary artery of [place] heart without angina pectoris Essential (primary) hypertension [...] denosumab 60 mg/mL subcutaneous 60 mg subcut [id number] 11/26/24 Unk nown History syringe (Prolia) ibuprofen [...] ecchymosis ante (more content not included)... Normal [facility] Eosinophil percentageOrdered By: Albin Plummer on 11-27-2024 Eosinophils/100 WBC (Bld) 2.5 % 0-5 [facility] Erythrocyte distribution wid th (RBC) [Ratio]Ordered By: Albin Plummer on 11-27-2024 Erythrocyte distribution width (RBC) [Entitic vol] 43.1 fL 35.1-43.9 [facility] Erythrocyte distribution wid th ratioOrdered By: Albin Plummer on 11-27-2024 Erythrocyte distribution width (RBC) [Ratio] 12.8 % 11.6-14.6 [facility] Estimation of creatinine jovani aranceOrdered By: Albin Plummer on 11-27-2024 Estimated Creatinine Clearance Calc 23.47 ml/min Low 50-250 [facility] GFR/1.73 sq M.predicted papo g non-blacks MDRD (S/P/Bld) [Vol rate/Area]Ordered By: Albin Plummer on 11-27-2024 Estimated GFR (MDRD) Non-Af Amer 44 Low >60 [facility] Comment on above: mL/min/1.73m2 CKD-EP I Creatinine Equation (2020) H AND P Exam - [place] 11-27-2024 H&P Exam - Hospitalist [facility] Medical Records Department [address] [place] [address] H P Exam - Hospitalist 11/27/242134 MR#: [id number] Acct: [id number] Name: RADHA MAYERS Rep #: [id number] : 1935 89 From: Aguilar Gale DO PCP: Dr. Rehan Lucero, DO Status:ADM SUZIE Location: MS3 LF887-8 HPI - General General Date of Admission: 11/27/24 Date of Service: 11/27/24 Chief Complaint: Fall with left shoulder pain HPI Narrative RADHA MAYERS, is a 89 F who presented to [facility] ED on 11/27/24 with left shoulder [...] denies any acute concerns at this time. [facility] Medical History (Updated 11/27/24 @ 21:48 by [...] (DVT) (04/2012) Atherosclerosis of coronary artery of [place] heart without angina pectoris Essential (primary) hypertension [...] denosumab 60 mg/mL subcutaneous 60 mg subcut [id number] oa 11/26/24 Unknown History syringe (Prolia) ibuprofen [...] of hys (more content not included)... Normal [facility] Hematocrit Auto (Bld) [Volum e fraction]Ordered By: Albin Plummer on 11-27-2024 Hematocrit (Bld) [Volume fraction] 36.5 % Low 37-47 [facility] Hemoglobin measurementOrdere d By: Albin Plummer on 11-27-2024 Hemoglobin (Bld) [Mass/Vol] 12.0 g/dL 12.0-15.0 [facility] Immature granulocytes/100 WB C Auto (Bld)Ordered By: Albin Plummer on 11-27-2024 Immature granulocytes/100 WBC (Bld) 1.200 % High 0.0-0.9 [facility] Comment on above: IG% - Immature Granu locytes (promyelocytes, myelocytes and metamyelocytes) > 1% indicates that a LEFT SHIFT is Present. Knee 1 or 2 Viewson 11-28-[address] [facility] Imaging Services [address] [place] [address] Knee 1 or 2 Views MR#: [id number] Acct: [id number] Name: RADHA MAYERS Rep #: [id number] : 1935 F 89 From: Yomi Mae MD PCP: Dr. Rehan Lucero, Status: [facility] ER Study: Knee 1 or 2 Views Date of Exam: 11/27/24 Exam# [id number] Ordering Dr: Albin Plummer MD PROCEDURE: KNEE [...] No new fracture. Moderate arthrosis. Reading Location: [id number] CC: Dr. Albin Plummer MD; Dr. Rehan Lucero DO Plaster Machine Operator: Signed Normal [facility] Lymphocytes Auto (Unsp spec) [#/Vol]Ordered By: Albin Plummer on 11-27-2024 Lymphocytes (Bld) [#/Vol] 1.23 10*3/uL 0.83-4.51 [facility] Lymphocytes/100 WBC Auto (Un sp spec)Ordered By: Albin Plummer on 11-27-2024 Lymphocytes/100 WBC (Bld) 23.8 % 19-41 [facility] MCV (mean corpuscular volume ) determinationOrdered By: Albin Plummer on 11-27-2024 MCV (RBC) [Entitic vol] 91.9 fL 81-99 [facility] Mean corpuscular hemoglobin (MCH) determinationOrdered By: Albin Plummer on 11-27-2024 MCH (RBC) [Entitic mass] 30.2 pg 27.0-32.0 [facility] Mean corpuscular hemoglobin concentration (MCHC) determinationOrdered By: Albin Plummer on 11-27-2024 MCHC (RBC) [Mass/Vol] 32.9 g/dL 32-36 [facility] Mean platelet volume determi nationOrdered By: Albin Plummer on 11-27-2024 Platelet mean volume (Bld) [Entitic vol] 12.1 fL High 6.2-12.0 [facility] Monocyte percentageOrdered B y: Albin Plummer on 11-27-2024 Monocytes/100 WBC (Bld) 12.2 % High 0-10 [facility] Neutrophil percentageOrdered By: Albin Plummer on 11-27-2024 Neutrophils/100 WBC (Bld) 59.3 % 47-70 [facility] Nucleated red blood cell per centageOrdered By: Albin Plummer on 11-27-2024 Nucleated RBC/100 WBC (Bld) [Ratio] 0 % 0-5 [facility] Platelet countOrdered By: Trenton Plummer on 11-27-2024 Platelets (Bld) [#/Vol] 233 10*3/uL 150-450 [facility] Potassium (Unsp spec) [Mass/ Vol]Ordered By: Albin Plummer on 11-27-2024 Potassium [Moles/Vol] 4.4 mmol/L 3.3-5.1 [facility] Comment on above: Hemolysis present, R esults could be affected. RBC Auto (Bld) [#/Vol]Ordere d By: Albin Plummer on 11-27-2024 RBC (Bld) [#/Vol] 3.97 10*6/uL Low 4.2-5.4 [facility] Serum creatinine measurement (mass/volume)Ordered By: Albin Plummer on 11-27-2024 Creatinine [Mass/Vol] 1.19 mg/dL 0.70-1.20 [facility] Serum glucose measurement (m ass/volume)Ordered By: Albin Plummer on 11-27-2024 Glucose [Mass/Vol] 91 mg/dL 70-99 [facility] Serum or plasma calcium kailyn urement (mass/volume)Ordered By: Albin Plummer on 11-27-2024 Calcium [Mass/Vol] 9.5 mg/dL 7.6-11.0 [facility] Serum or plasma urea nitroge n measurement (mass/volume)Ordered By: Albin Plummer on 11-27-2024 Urea nitrogen [Mass/Vol] 17 mg/dL 4- [facility] Shoulder min 2 Viewson 11-[address] [facility] Imaging Services [address] [place] [address] Shoulder min 2 Views MR#: [id number] Acct: [id number] Name: RADHA MAYERS Rep #: [id number] : 1935 F 89 From: Yomi Mae MD PCP: Dr. Rehan Lucero, Status: REG ER Study: Shoulder min 2 Views Date of Exam: 11/27/24 Exam# [id number] Ordering Dr: Albin Plummer MD PROCEDURE: SHOULDER [...] of the distal left clavicle. Reading Location: [id number] CC: Dr. Albin Plummer MD; Dr. Rehan Lucero DO Plaster Machine Operator: Signed Normal [facility] Sodium levelOrdered By: Albin Plummer on 11-27-2024 Sodium [Moles/Vol] 140 mmol/L 133-145 [facility] Spine Cervical without Contr ason 11-27-[address] Cont[address] [facility] Imaging Services [address] [place], [place] [address] Spine Cervical without Contras MR#: [id number] Acct: [id number] Name: RADHA MAYERS Rep #: [id number] : 1935 F 89 From: Tyson Pimentel DO PCP: Dr. Rehan Lucero DO Status: REG ER Study: Spine Cervical without Contras Date of Exam: 0 11/27/24 Exam# [id number] Ordering Dr: Albin Plummer MD PROCEDURE: SPINE [...] anterolisthesis of C4 on C5. Reading Location: [facility] CC: Dr. Albin Plummer MD; Dr. Rehan Lucero DO Plaster Machine Operator: Signed Normal [facility] Spine Lumbar without Contras ton 11-27-[address] [facility] Imaging Services [address] [place] [address] Spine Lumbar without Contrast MR#: [id number] Acct: [id number] Name: RADHA MAYERS Rep #: [id number] : 1935 F 89 From: Yomi Mae MD PCP: Dr. Rehan Lucero DO Status: REG ER Study: Spine Lumbar without Contrast Date of Exam: Exam# [id number] Ordering Dr: Albin Plummer MD PROCEDURE: SPINE [...] disc disease as described above. Reading Location: [facility] CC: Dr. Albin Plummer MD; Dr. Rehan Lucero DO Plaster Machine Operator: Signed Normal [facility] Spine Thoracic without Contr ason 11-27-[address] without Cont[address] [facility] Imaging Services [address] [facility] [place], [place] [address] Spine Thoracic without Contras MR#: [id number] Acct: [id number] Name: RADHA MAYERS Rep #: [id number] : 1935 F 89 From: Tyson Pimentel DO PCP: Dr. Rehan Lucero DO Status: REG ER Study: Spine Thoracic without Contras Date of Exam: 0 11/27/24 Exam# [id number] Ordering Dr: Albin Plummer MD PROCEDURE: SPINE [...] Albin Plummer MD; Dr. Rehan Lucero DO Plaster Machine Operator: Signed Normal [facility] White blood cell (WBC) count Ordered By: Albin Plummer on 11-27-2024 WBC (Bld) [#/Vol] 5.2 10*3/uL 4.4-11.0 [facility] Cardiology Visit Reporton Cardiology Visit Report [facility] [address] [place], [place] [address] OFFICE VISIT Date of Service: 11/26/24 MR#: [id number] Acct: [id number] Name: RADHA MAYERS Rep #: [id number] : 1935 Provider: ESCOBAR Diamond Age/Sex: 89/F Location: [facility] Status: Signed HPI HPI History of Present [...] NIBP Intake Visit Reasons: 6 M FU [employer] Operator Required: No Accompanied by: Daughter Is patient [...] denosumab 60 mg/mL subcutaneous 60 mg subcut [id number] 11/26/24 History syringe (Prolia) ibuprofen 400 mg [...] (DVT) (04/2012) Atherosclerosis of coronary artery of [place] heart without angina pectoris Essential (primary) hypertension Hyperlipidemia Surgical History History of loop recorder (05/05/19) History of thoracentesis History of appendectomy History of cataract surgery History of total knee arthroplasty History of bowel resection Hx of cholecystectomy History of left heart catheterization (03/23/17) History of hysterectomy (more content not included)... Normal [facility] BUN/creatinine ratioOrdered By: Jamir Eagle on 10-08-2024 Urea nitrogen/Creatinine [Mass ratio] 22.9 mg/mg High 10-20 [facility] Bilirubin, totalOrdered By: Jamir Eagle on 10-08-2024 Bilirubin [Mass/Vol] 0.53 mg/dL 0.00-1.30 [facility] CBC-Complete Blood Cnt No Di ffon 10-08-2024 Erythrocyte distribution width (RBC) [Ratio] 12.3 % Normal 11.6-14.6 [facility] Comment on above: Performed By: #### L 100.0100, L500.2500 #### [facility] [place], [address] Hematocrit (Bld) [Volume fraction] 31.6 % Low 37-47 [facility] Comment on above: Performed By: #### L 100.0100, L500.2500 #### [facility] [address] [place], [address] Hemoglobin (Bld) [Mass/Vol] 9.9 g/dL Low 12.0-15.0 [facility] Comment on above: Performed By: #### L 100.0100, L500.2500 #### [facility] [address] [place], [address] MCH (RBC) [Entitic mass] 30.1 pg Normal 27.0-32.0 [facility] Comment on above: Performed By: #### L 100.0100, L500.2500 #### [facility] [address] [place], [address] MCHC (RBC) [Mass/Vol] 31.3 g/dL Low 32-36 [facility] Comment on above: Performed By: #### L 100.0100, L500.2500 #### [facility] [address] [place], [address] MCV (RBC) [Entitic vol] 96.0 fL Normal 81-99 [facility] Comment on above: Performed By: #### L 100.0100, L500.2500 #### [facility] [address] [place], [address] Platelet mean volume (Bld) [Entitic vol] 11.7 fL Normal 6.2-12.0 [facility] Comment on above: Performed By: #### L 100.0100, L500.2500 #### [facility] [address] [place], [address] Platelets (Bld) [#/Vol] 271 10*3/uL Normal 150-450 [facility] Comment on above: Performed By: #### L 100.0100, L500.2500 #### [facility] [address] [place], [address] RBC (Bld) [#/Vol] 3.29 10*6/uL Low 4.2-5.4 [facility] Comment on above: Performed By: #### L 100.0100, L500.2500 #### [facility] [address] [place], [address] RDW SD 42.7 fl Normal 35.1-43.9 [facility] Comment on above: Performed By: #### L 100.0100, L500.2500 #### [facility] [address] [place], [address] WBC (Bld) [#/Vol] 7.7 10*3/uL Normal 4.4-11.0 [facility] Comment on above: Performed By: #### L 100.0100, L500.2500 #### [facility] [address] [place], [address] Carbon dioxide measurementOr dered By: Jamir Eagle on 10-08-2024 CO2 [Moles/Vol] 23.6 mmol/L 22.0-29.0 [facility] Chloride measurementOrdered By: Jamir Eagle on 10-08-2024 Chloride [Moles/Vol] 106 mmol/L 96-108 [facility] Comprehensive Metabolic Prof ilon 10-08-2024 Albumin [Mass/Vol] 3.4 g/dL Normal 3.4-4.8 [facility] Comment on above: Performed By: #### L 100.0100, L500.2500 #### [facility] [address] [place], [address] Albumin/Globulin [Mass ratio] 1.3 {ratio} Normal 0.9-2.4 [facility] Comment on above: Performed By: #### L 100.0100, L500.2500 #### [facility] [address] [place], [address] ALK PHOS 38 U/L Normal 35-104 [facility] Comment on above: Performed By: #### L 100.0100, L500.2500 #### [facility] [address] [place], [address] ALT [Catalytic activity/Vol] 6 U/L Normal <=34 [facility] Comment on above: Performed By: #### L 100.0100, L500.2500 #### [facility] [address] [place], [address] Anion gap [Moles/Vol] 10 mmol/L Normal 5-15 [facility] Comment on above: Performed By: #### L 100.0100, L500.2500 #### [facility] [address] [place], [address] AST [Catalytic activity/Vol] 20 U/L Normal <=31 [facility] Comment on above: Performed By: #### L 100.0100, L500.2500 #### [facility] [address] [place], [address] Bilirubin [Mass/Vol] 0.53 mg/dL Normal 0.00-1.30 [facility] Comment on above: Performed By: #### L 100.0100, L500.2500 #### [facility] [address] [place], [address] BUN/CRE 22.9 RATIO High 10-20 [facility] Comment on above: Performed By: #### L 100.0100, L500.2500 #### [facility] [address] [place], [address] Calcium [Mass/Vol] 8.7 mg/dL Normal 7.6-11.0 [facility] Comment on above: Performed By: #### L 100.0100, L500.2500 #### [facility] [address] [place], [address] Chloride [Moles/Vol] 106 mmol/L Normal 96-108 [facility] Comment on above: Performed By: #### L 100.0100, L500.2500 #### [facility] [address] [place], [address] CO2 [Moles/Vol] 23.6 mmol/L Normal 22.0-29.0 [facility] Comment on above: Performed By: #### L 100.0100, L500.2500 #### [facility] [address] [place], [address] Creatinine [Mass/Vol] 1.0 mg/dL Normal 0.6-1.0 [facility] Comment on above: Performed By: #### L 100.0100, L500.2500 #### [facility] [address] [place], [address] GFR/1.73 sq M.predicted among non-blacks MDRD (S/P/Bld) [Vol rate/Area] 54 mL/min/{1.73_m2} Low >60 [facility] Comment on above: Result Comment: mL/m in/1.73m2 CKD-EPI Creatinine Equation (2020) Performed By: #### L 100.0100, L500.2500 #### [facility] [address] [place], [address] Globulin (S) [Mass/Vol] 2.6 g/dL Normal 2.2-4.2 [facility] Comment on above: Performed By: #### L 100.0100, L500.2500 #### [facility] [address] [place], [address] Glucose [Mass/Vol] 90 mg/dL Normal 70-99 [facility] Comment on above: Performed By: #### L 100.0100, L500.2500 #### [facility] [address] [place], [address] Potassium [Moles/Vol] 4.5 mmol/L Normal 3.3-5.1 [facility] Comment on above: Performed By: #### L 100.0100, L500.2500 #### [facility] [address] [place], [address] Sodium [Moles/Vol] 139 mmol/L Normal 133-145 [facility] Comment on above: Performed By: #### L 100.0100, L500.2500 #### [facility] [address] [place], [address] T PROT 6.1 g/dL Normal 5.9-8.4 [facility] Comment on above: Performed By: #### L 100.0100, L500.2500 #### [facility] [address] [place], [address] Urea nitrogen [Mass/Vol] 23 mg/dL High 4-19 [facility] Comment on above: Performed By: #### L 100.0100, L500.2500 #### [facility] [address] [place], [address] Creatinine [Moles/Vol]Ordere d By: Jamir Eagle on 10-08-2024 Creatinine [Mass/Vol] 1.0 mg/dL 0.6-1.0 [facility] Erythrocyte distribution wid th (RBC) [Ratio]Ordered By: Jamir Eagle on 10-08-2024 Erythrocyte distribution width (RBC) [Entitic vol] 42.7 fL 35.1-43.9 [facility] Erythrocyte distribution wid th ratioOrdered By: Jamir Eagle on 10-08-2024 Erythrocyte distribution width (RBC) [Ratio] 12.3 % 11.6-14.6 [facility] Erythrocyte distribution wid th standard deviationOrdered By: Jamir Eagle on 10-08-2024 Erythrocyte distribution width (RBC) [Ratio] 42.7 fl 35.1-43.9 [facility] GFR/1.73 sq M.predicted papo g non-blacks MDRD (S/P/Bld) [Vol rate/Area]Ordered By: Jamir Eagle on 10-08-2024 Estimated GFR (MDRD) Non-Af Amer 54 Low >60 [facility] Comment on above: mL/min/1.73m2 CKD-EP I Creatinine Equation (2020) Glomerular filtration rate ( GFR) estimation/1.73 sq m using serum, plasma, or whole bOrdered By: Jamir Eagle on 10-08-2024 GFR/1.73 sq M.predicted among non-blacks MDRD (S/P/Bld) [Vol rate/Area] 54 mL/min/{1.73_m2} Low >60 [facility] Comment on above: mL/min/1.73m2 CKD-EP I Creatinine Equation (2020) Hematocrit Auto (Bld) [Volum e fraction]Ordered By: Jamir Eagle on 10-08-2024 Hematocrit (Bld) [Volume fraction] 31.6 % Low 37-47 [facility] Hemoglobin measurementOrdere d By: Jamir Eagle on 10-08-2024 Hemoglobin (Bld) [Mass/Vol] 9.9 g/dL Low 12.0-15.0 [facility] - Chemistry and C hemistry - challengeOrdered By: Jamir Eagle on 10-08-2024 AST [Catalytic activity/Vol] 20 U/L <32 [facility] MCV (mean corpuscular volume ) determinationOrdered By: Jamir Eagle on 10-08-2024 MCV (RBC) [Entitic vol] 96.0 fL 81-99 [facility] Mean corpuscular hemoglobin (MCH) determinationOrdered By: Jamir Eagle on 10-08-2024 MCH (RBC) [Entitic mass] 30.1 pg 27.0-32.0 [facility] Mean corpuscular hemoglobin concentration (MCHC) determinationOrdered By: Jamir Eagle on 10-08-2024 MCHC (RBC) [Mass/Vol] 31.3 g/dL Low 32-36 [facility] Mean platelet volume determi nationOrdered By: Jamir Eagle on 10-08-2024 Platelet mean volume (Bld) [Entitic vol] 11.7 fL 6.2-12.0 [facility] Platelet countOrdered By: Casarez on 10-08-2024 Platelets (Bld) [#/Vol] 271 10*3/uL 150-450 [facility] RBC Auto (Bld) [#/Vol]Ordere d By: Jamir Eagle on 10-08-2024 RBC (Bld) [#/Vol] 3.29 10*6/uL Low 4.2-5.4 [facility] Serum globulin measurementOr dered By: Jamir Eagle on 10-08-2024 Globulin (S) [Mass/Vol] 2.6 g/dL 2.2-4.2 [facility] Serum glucose measurement (m ass/volume)Ordered By: Jamir Eagle on 10-08-2024 Glucose [Mass/Vol] 90 mg/dL 70-99 [facility] Serum or plasma alanine saleem otransferase (ALT) measurementOrdered By: Jamir Eagle on 10-08-2024 ALT [Catalytic activity/Vol] 6 U/L <35 [facility] Serum or plasma albumin kailyn urement (mass/volume)Ordered By: Jamir Eagle on 10-08-2024 Albumin [Mass/Vol] 3.4 g/dL 3.4-4.8 [facility] Serum or plasma albumin/glob ulin mass ratioOrdered By: Jamir Eagle on 10-08-2024 Albumin/Globulin [Mass ratio] 1.3 {ratio} 0.9-2.4 [facility] Serum or plasma alkaline leanne sphatase measurementOrdered By: Jamir Eagle on 10-08-2024 ALP [Catalytic activity/Vol] 38 U/L 35-104 [facility] Serum or plasma anion gap de termination (moles/volume)Ordered By: Jamir Eagle on 10-08-2024 Anion gap [Moles/Vol] 10 mmol/L 5-15 [facility] Serum or plasma calcium kailyn urement (mass/volume)Ordered By: Jamir Eagle on 10-08-2024 Calcium [Mass/Vol] 8.7 mg/dL 7.6-11.0 [facility] Serum or plasma creatinine m easurement (moles/volume)Ordered By: Jamir Eagle on 10-08-2024 Creatinine [Moles/Vol] 1.0 mg/dL 0.6-1.0 [facility] Serum or plasma potassium me asurementOrdered By: Jamir Eagle on 10-08-2024 Potassium [Moles/Vol] 4.5 mmol/L 3.3-5.1 [facility] Serum or plasma sodium measu rement (moles/volume)Ordered By: Jamir Eagle on 10-08-2024 Sodium [Moles/Vol] 139 mmol/L 133-145 [facility] Serum or plasma urea nitroge n measurement (mass/volume)Ordered By: Jamir Eagle on 10-08-2024 Urea nitrogen [Mass/Vol] 23 mg/dL High 4-19 [facility] Total proteinOrdered By: Mariel Eagle on 10-08-2024 Protein [Mass/Vol] 6.1 g/dL 5.9-8.4 [facility] White blood cell (WBC) count Ordered By: Jamir Eagle on 10-08-2024 WBC (Bld) [#/Vol] 7.7 10*3/uL 4.4-11.0 [facility] Bilirubin Test strip Ql (U)O rdered By: Benito Romero on 10-06-2024 Bilirubin Ql (U) Negative Negative [facility] CBC W/Diff, Automatedon 09-14 Absolute Lymph 0.85 X10 3/uL Normal 0.83-4.51 [facility] Comment on above: Performed By: #### L 500.2500, L100.0100 #### [facility] [address] [place], [address] Absolute Neut 10.5 X10 3/uL High 2.0-7.7 [facility] Comment on above: Performed By: #### L 500.2500, L100.0100 #### [facility] [address] [place], [address] Basophils/100 WBC (Bld) 0.2 % Normal 0-1 [facility] Comment on above: Performed By: #### L 500.2500, L100.0100 #### [facility] [address] [place], [address] Eosinophils/100 WBC (Bld) 0.9 % Normal 0-5 [facility] Comment on above: Performed By: #### L 500.2500, L100.0100 #### [facility] [address] [place], [address] Erythrocyte distribution width (RBC) [Ratio] 12.5 % Normal 11.6-14.6 [facility] Comment on above: Performed By: #### L 500.2500, L100.0100 #### [facility] [address] [place], [address] Hematocrit (Bld) [Volume fraction] 36.1 % Low 37-47 [facility] Comment on above: Performed By: #### L 500.2500, L100.0100 #### [facility] [address] [place], [address] Hemoglobin (Bld) [Mass/Vol] 11.8 g/dL Low 12.0-15.0 [facility] Comment on above: Performed By: #### L 500.2500, L100.0100 #### [facility] [address] [place], [address] IG% 0.500 Normal 0.0-0.9 [facility] Comment on above: Result Comment: IG% - Immature Granulocytes (promyelocytes, myelocytes and metamyelocytes) > 1% indicates that a LEFT SHIFT is Present. Performed By: #### L 500.2500, L100.0100 #### [facility] [address] [place], [address] Lymphocytes/100 WBC (Bld) 6.8 % Low 19-41 [facility] Comment on above: Performed By: #### L 500.2500, L100.0100 #### [facility] [address] [place], [address] MCH (RBC) [Entitic mass] 30.8 pg Normal 27.0-32.0 [facility] Comment on above: Performed By: #### L 500.2500, L100.0100 #### [facility] [address] [place], [address] MCHC (RBC) [Mass/Vol] 32.7 g/dL Normal 32-36 [facility] Comment on above: Performed By: #### L 500.2500, L100.0100 #### [facility] [address] [place], [address] MCV (RBC) [Entitic vol] 94.3 fL Normal 81-99 [facility] Comment on above: Performed By: #### L 500.2500, L100.0100 #### [facility] [address] [place], [address] Monocytes/100 WBC (Bld) 8.0 % Normal 0-10 [facility] Comment on above: Performed By: #### L 500.2500, L100.0100 #### [facility] [address] [place], [address] Neutrophils/100 WBC (Bld) 83.6 % High 47-70 [facility] Comment on above: Performed By: #### L 500.2500, L100.0100 #### [facility] [address] [place], [address] Nucleated RBC (Bld) [#/Vol] 0 10*3/uL Normal 0-5 [facility] Comment on above: Performed By: #### L 500.2500, L100.0100 #### [facility] [address] [place], [address] Platelet mean volume (Bld) [Entitic vol] 10.8 fL Normal 6.2-12.0 [facility] Comment on above: Performed By: #### L 500.2500, L100.0100 #### [facility] [address] [place], [address] Platelets (Bld) [#/Vol] 264 10*3/uL Normal 150-450 [facility] Comment on above: Performed By: #### L 500.2500, L100.0100 #### [facility] [address] [place], [address] RBC (Bld) [#/Vol] 3.83 10*6/uL Low 4.2-5.4 [facility] Comment on above: Performed By: #### L 500.2500, L100.0100 #### [facility] [address] [place], [address] RDW SD 43.2 fl Normal 35.1-43.9 [facility] Comment on above: Performed By: #### L 500.2500, L100.0100 #### [facility] [address] [place], [address] WBC (Bld) [#/Vol] 12.5 10*3/uL High 4.4-11.0 [facility] Comment on above: Performed By: #### L 500.2500, L100.0100 #### [facility] [address] [place], [address] Comprehensive Metabolic Prof ilon 10-06-2024 Albumin [Mass/Vol] 3.4 g/dL Normal 3.2-5.0 [facility] Comment on above: Performed By: #### L 500.2500, L100.0100 #### [facility] [address] [place], [address] Albumin/Globulin [Mass ratio] 0.9 {ratio} Normal 0.9-2.4 [facility] Comment on above: Performed By: #### L 500.2500, L100.0100 #### [facility] [address] [place], [address] ALK P 45 U/L Normal 45-117 [facility] Comment on above: Performed By: #### L 500.2500, L100.0100 #### [facility] [address] [place], [address] ALT [Catalytic activity/Vol] 13 U/L Normal 13-56 [facility] Comment on above: Performed By: #### L 500.2500, L100.0100 #### [facility] [address] [place], [address] AST [Catalytic activity/Vol] 17 U/L Normal 15-37 [facility] Comment on above: Performed By: #### L 500.2500, L100.0100 #### [facility] [address] [place], [address] Bilirubin [Mass/Vol] 0.90 mg/dL Normal 0.20-1.00 [facility] Comment on above: Result Comment: For patients on eltrombopag therapy, use of Dimension [place] TBIL is not recommended. Performed By: #### L 500.2500, L100.0100 #### [facility] [address] [place], [address] BUN/CRE 20.4 RATIO High 10-20 [facility] Comment on above: Performed By: #### L 500.2500, L100.0100 #### [facility] [address] [place], [address] CA,Total 9.1 mg/dL Normal 8.5-10.1 [facility] Comment on above: Performed By: #### L 500.2500, L100.0100 #### [facility] [address] [place], [address] Chloride [Moles/Vol] 105 mmol/L Normal 98-107 [facility] Comment on above: Performed By: #### L 500.2500, L100.0100 #### [facility] [address] [place], [address] CO2 [Moles/Vol] 24.0 mmol/L Normal 21.0-32.0 [facility] Comment on above: Performed By: #### L 500.2500, L100.0100 #### [facility] [address] [place], [address] Creatinine [Mass/Vol] 1.03 mg/dL High 0.55-1.02 [facility] Comment on above: Result Comment: The validity of the calculated GFR GFRAA in patients over 70 years has not been determined. Clinical correlation is essential. Performed By: #### L 500.2500, L100.0100 #### [facility] [address] [place], [address] ECRCL 30.27 ml/min Normal [facility] Comment on above: Performed By: #### L 500.2500, L100.0100 #### [facility] [address] [place], [address] EST GFR - AA 65 mL/min Normal >60 [facility] Comment on above: Result Comment: Afri can [place] GFR Calc Performed By: #### L 500.2500, L100.0100 #### [facility] [address] [place], [address] GAP 7 Normal 5-15 [facility] Comment on above: Performed By: #### L 500.2500, L100.0100 #### [facility] [address] [place], [address] GFR/1.73 sq M.predicted among non-blacks MDRD (S/P/Bld) [Vol rate/Area] 54 mL/min/{1.73_m2} Low >60 [facility] Comment on above: Result Comment: Non- GFR Calc Performed By: #### L 500.2500, L100.0100 #### [facility] [address] [place], [address] Globulin (S) [Mass/Vol] 3.6 g/dL Normal 2.2-4.2 [facility] Comment on above: Performed By: #### L 500.2500, L100.0100 #### [facility] [address] [place], [address] Glucose [Mass/Vol] 122 mg/dL High 74-106 [facility] Comment on above: Result Comment: Fast ing Glucose result from 100 to 125 mg/dL suggests IMPAIRED HOMEOSTASIS per A.D.A. criteria. Performed By: #### L 500.2500, L100.0100 #### [facility] [address] [place], [address] Potassium [Moles/Vol] 4.1 mmol/L Normal 3.5-5.1 [facility] Comment on above: Performed By: #### L 500.2500, L100.0100 #### [facility] [address] [place], [address] Sodium [Moles/Vol] 136 mmol/L Normal 136-145 [facility] Comment on above: Performed By: #### L 500.2500, L100.0100 #### [facility] [address] [place], [address] T PROT 7.0 g/dL Normal 6.4-8.2 [facility] Comment on above: Performed By: #### L 500.2500, L100.0100 #### [facility] [address] [place], [address] Urea nitrogen [Mass/Vol] 21 mg/dL High 7-18 [facility] Comment on above: Performed By: #### L 500.2500, L100.0100 #### [facility] [address] [place], [address] Emergency Department Summary on 10-06-2024 Emergency Department Summary [facility] Medical Records Department [address] [place] [address] Emergency Department Summary 10/06/24 MR#: [id number] Acct: [id number] Name: RADHA MAYERS Rep #: [id number] : 1935 89 From: Braydon Nathan DO [...] today and had negative x-rays last night. 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 Normal [facility] Epithelial cells.squamous LM Ql (Urine sed)Ordered By: Benito Romero on 10-06-2024 Epithelial cells.squamous LM.HPF (Urine sed) [#/Area] 0 /[HPF] 5-10 [facility] Glucose Ql (U)Ordered By: Vijay Romero on 10-06-2024 Urine Glucose (UA) Normal mg/dl Normal [facility] Ketones Test strip Ql (U)Ord ered By: Benito Romero on 10-06-2024 Ketones Ql (U) Negative Negative [facility] M100.678on 10-06-2024 M100.678 SARS-CoV-2 (COVID 19 ) Negative INFLUENZA A Negative INFLUENZA B Negative RSV PCR Negative Normal [facility] Comment on above: Performed By: #### M 100.678, L400.0001 ####[facility] [address] [place], [address] Microscopic analysis of urin e for red blood cells (RBC)Ordered By: Benito Romero on 10-06-2024 Microscopic analysis of urine for red blood cells (RBC) 0 SEEN /hpf 0-5 [facility] Urine RBC 0 SEEN /hpf 0-5 [facility] Mucus LM Ql (Urine sed)Order ed By: Benito Romero on 10-06-2024 Mucus Ql (Urine sed) 1+ /hpf [facility] Nitrite Test strip Ql (U)Ord ered By: Benito Romero on 10-06-2024 Nitrite Ql (U) Negative Negative [facility] Partial Thromboplast Timeon 10-06-2024 aPTT Coag (Bld) [Time] 29.0 s Normal 24.1-36.2 [facility] Comment on above: Performed By: #### L 500.2500, L100.0100 #### [facility] [address] [place], [address] Protein Test strip Ql (U)Ord ered By: Benito Romero on 10-06-2024 Protein Ql (U) 30 mg/dl High Negative [facility] Prothrombin Time w/INRon INR Coag (PPP) [Relative time] 1.2 {INR} Normal [facility] Comment on above: Performed By: #### L 500.2500, L100.0100 #### [facility] [address] [place], [address] PT Coag (PPP) [Time] 15.8 s High 11.7-14.9 [facility] Comment on above: Performed By: #### L 500.2500, L100.0100 #### [facility] [address] [place], [address] Squamous epithelial cells de tection in urine sediment by light microscopyOrdered By: Benito Romero on 10-06-2024 Epithelial cells.squamous LM Ql (Urine sed) 0 SEEN /hpf 5-10 [facility] Urinalysis, Completeon 10-06 BACTERIA 3+ /hpf Normal None Seen [facility] Comment on above: Order Comment: CLEAN CATCH Performed By: #### M 100.678, L400.0001 ####[facility] [address] [place], [address] Mucus Ql (Urine sed) 1+ /hpf Normal [facility] Comment on above: Order Comment: CLEAN CATCH Performed By: #### M 100.678, L400.0001 ####[facility] [address] [place], [address] RBC 0 SEEN Normal 0-5 [facility] Comment on above: Order Comment: CLEAN CATCH Performed By: #### M 100.678, L400.0001 ####[facility] [address] [place], [address] WBC 0-5 SEEN Normal 0-5 [facility] Comment on above: Order Comment: CLEAN CATCH Performed By: #### M 100.678, L400.0001 ####[facility] [address] [place], [address] BILIRUBIN URINE Negative Normal Negative [facility] Comment on above: Order Comment: CLEAN CATCH Performed By: #### M 100.678, L400.0001 ####[facility] [address] [place], [address] Clarity (U) Sl. Cloudy Normal Clear [facility] Comment on above: Order Comment: CLEAN CATCH Performed By: #### M 100.678, L400.0001 ####[facility] [address] [place], [address] Color (U) Yellow Normal Yellow [facility] Comment on above: Order Comment: CLEAN CATCH Performed By: #### M 100.678, L400.0001 ####[facility] [address] [place], [address] GLUCOSE, UR Normal Normal Normal [facility] Comment on above: Order Comment: CLEAN CATCH Performed By: #### M 100.678, L400.0001 ####[facility] [address] [place], [address] KETONE UR Negative Normal Negative [facility] Comment on above: Order Comment: CLEAN CATCH Performed By: #### M 100.678, L400.0001 ####[facility] [address] [place], [address] LEUK ESTERASE Negative Normal Negative [facility] Comment on above: Order Comment: CLEAN CATCH Performed By: #### M 100.678, L400.0001 ####[facility] [address] [place], [address] Nitrite Ql (U) Negative Normal Negative [facility] Comment on above: Order Comment: CLEAN CATCH Performed By: #### M 100.678, L400.0001 ####[facility] [address] [place], [address] OCCULT BLOOD-UR Negative Normal Negative [facility] Comment on above: Order Comment: CLEAN CATCH Performed By: #### M 100.678, L400.0001 ####[facility] [address] [place], [address] pH UR 6.0 Normal 5.0 - 8.0 [facility] Comment on above: Order Comment: CLEAN CATCH Performed By: #### M 100.678, L400.0001 ####[facility] [address] [place], [address] PROT DIPSTX 30 mg/dl Abnormal Negative [facility] Comment on above: Order Comment: CLEAN CATCH Performed By: #### M 100.678, L400.0001 ####[facility] [address] [place], [address] SP.GR. DIPSTX 1.010 Normal 1.002-1.030 [facility] Comment on above: Order Comment: CLEAN CATCH Performed By: #### M 100.678, L400.0001 ####[facility] [address] [place], [address] UROBILI 1 mg/dl Abnormal Normal [facility] Comment on above: Order Comment: CLEAN CATCH Performed By: #### M 100.678, L400.0001 ####[facility] [address] [place], [address] EPI,SQUAMOUS 0 SEEN Normal 5-10 [facility] Comment on above: Order Comment: CLEAN CATCH Performed By: #### M 100.678, L400.0001 ####[facility] [address] [place], [address] Urine blood detectionOrdered By: Benito Romero on 10-06-2024 Urine Occult Blood Negative Negative [facility] Urine clarityOrdered By: Marino Romero on 10-06-2024 Clarity (U) Sl. Cloudy Clear [facility] Urine color determinationOrd ered By: Benito Romero on 10-06-2024 Color (U) Yellow Yellow [facility] Urine glucose detectionOrder ed By: Benito Romero on 10-06-2024 Glucose Ql (U) Normal mg/dl Normal [facility] Urine leukocyte esterase det ection by dipstickOrdered By: Benito Romero on 10-06-2024 Leukocyte esterase Test strip Ql (U) Negative Negative [facility] Urine pHOrdered By: Benito Romero on 10-06-2024 pH (U) 6.0 [pH] 5.0 - 8.0 [facility] Urine sediment bacteria coun t by microscopy (number/high power field)Ordered By: Benito Romero on 10-06-2024 Bacteria LM.HPF (Urine sed) [#/Area] 3 /[HPF] None Seen [facility] Urine specific gravity measu rementOrdered By: Benito Romero on 10-06-2024 Specific gravity (U) [Rel density] 1.010 1.002-1.030 [facility] Urine urobilinogen measureme ntOrdered By: Benito Romero on 10-06-2024 Urobilinogen Ql (U) 1 mg/dl High Normal [facility] Urobilinogen Ql (U)Ordered B y: Benito Romero on 10-06-2024 Urobilinogen (U) [Mass/Vol] 1 mg/dL High Normal [facility] White blood cell countOrdere d By: Benito Romero on 10-06-2024 Urine WBC 0-5 SEEN /hpf 0-5 [facility] White blood cell count 0-5 SEEN /hpf 0-5 [facility] Absolute lymphocyte countOrd ered By: Benito Romero on 10-05-2024 Lymphocytes Auto (Unsp spec) [#/Vol] 0.85 10*3/uL 0.83-4.51 [facility] Absolute neutrophil countOrd ered By: Benito Romero on 10-05-2024 Neutrophils (Bld) [#/Vol] 10.5 10*3/uL High 2.0-7.7 [facility] Activated partial thrombopla stin time (aPTT) in platelet poor plasma by coagulation aOrdered By: Benito Romero on 10-05-2024 aPTT Coag (PPP) [Time] 29.0 s 24.1-36.2 [facility] Albumin to globulin ratioOrd ered By: Benito Romero on 10-05-2024 Albumin/Globulin [Mass ratio] 0.9 {ratio} 0.9-2.4 [facility] Automated lymphocyte count a s percentage of total leukocytesOrdered By: Benito Romero on 10-05-2024 Lymphocytes/100 WBC Auto (Unsp spec) 6.8 % Low 19-41 [facility] Basophil percentageOrdered B y: Benito Romero on 10-05-2024 Basophils/100 WBC (Bld) 0.2 % 0-1 [facility] Bilirubin, totalOrdered By: Benito Romero on 10-05-2024 Bilirubin [Mass/Vol] 0.90 mg/dL 0.20-1.00 [facility] Comment on above: For patients on eltr ombopag therapy, use of Dimension [place] TBIL is not recommended. Blood urea nitrogen (BUN)/cr eatinine ratioOrdered By: Benito Romero on 10-05-2024 Urea nitrogen/Creatinine [Mass ratio] 20.4 mg/mg High 10-20 [facility] Brain/Head without Contrasto n 10-05-2024 Brain/Head without Contrast [facility] Imaging Services [address] [place], [place] [address] Brain/Head without Contrast MR#: [id number] Acct: [id number] Name: RADHA MAYERS Sakshi Rep #: [id number] : 1935 F 89 From: Rehan Dimas MD PCP: Dr. Rehan Lucero, DO Status: REG ER Study: Brain/Head without Contrast Date of Exam: 09/14 11/04 Exam# [id number] Ordering Dr: Benito Romero DO EXAM: Noncontrast head CT CLINICAL HISTORY: Injury, fall Sunday, chronic pain COMPARISON: None available TECHNIQUE: Noncontrast head CT with coronal and sagittal reformatted images FINDINGS: No intracranial hemorrhage, mass effect or calvarial fracture. The ventricles are within limits of midline. Chronic involutional changes. Volume loss, atrophy. [place] periventricular deep and subcortical white matter bilateral supratentorial low-attenuation statistically would represent chronic small-vessel ischemic change with superimposed acute lacunar infarct difficult to exclude. A few small scattered calcifications. The paranasal sinuses and mastoids are clear. Orbits appear within limits. CT/Brain/Head without Contrast IMPRESSION: No intracranial hemorrhage, mass effect or calvarial fracture. Age commensurate appearing chronic and involutional changes. Reading Location: [facility] CC: Dr. Rehan Lucero DO; Dr. Benito Romero DO Plaster Machine Operator: Signed Normal [facility] Carbon dioxide measurementOr dered By: Benito Romero on 10-05-2024 CO2 [Moles/Vol] 24.0 mmol/L 21.0-32.0 [facility] Chest 1 View (Portable)on Chest 1 View (Portable) [facility] Imaging Services [address] [place] [address] Chest 1 View (Portable) MR#: [id number] Acct: [id number] Name: RADHA MAYERS Rep #: [id number] : 1935 F 89 From: Rehan Dimas MD PCP: Dr. Rehan Lucero DO Status: REG ER Study: Chest 1 View (Portable) Date of Exam: 10/05/24 Exam# [id number] Ordering Dr: Benito Romero DO PROCEDURE: CHEST [...] evidence of acute traumatic injury. Reading Location: [facility] CC: Dr. Rehan Lucero DO; Dr. Benito Romero DO Plaster Machine Operator: Signed Normal [facility] Chloride measurementOrdered By: Benito Romero on 10-05-2024 Chloride [Moles/Vol] 105 mmol/L 98-107 [facility] Emergency Department Summary on 10-05-2024 Emergency Department Summary [facility] Medical Records Department [address] [place] [address] Emergency Department Summary 10/05/24 MR#: [id number] Acct: [id number] Name: RADHA MAYERS Rep #: [id number] : 1935 89 From: Benito Plata PCP: [...] a walker to try to use also. 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 Normal [facility] Eosinophil percentageOrdered By: Benito Romero on 10-05-2024 Eosinophils/100 WBC (Bld) 0.9 % 0-5 [facility] Erythrocyte distribution wid th (RBC) [Ratio]Ordered By: Benito Romero on 10-05-2024 Erythrocyte distribution width (RBC) [Entitic vol] 43.2 fL 35.1-43.9 [facility] Erythrocyte distribution wid th ratioOrdered By: Benito Romero on 10-05-2024 Erythrocyte distribution width (RBC) [Ratio] 12.5 % 11.6-14.6 [facility] Erythrocyte distribution wid th standard deviationOrdered By: Benito Romero on 10-05-2024 Erythrocyte distribution width (RBC) [Ratio] 43.2 fl 35.1-43.9 [facility] Estimated glomerular filtrat ion rate (GFR) AmericanOrdered By: Benito Romero on 10-05-2024 Estimated GFR (MDRD) Amer 65 mL/min >60 [facility] Comment on above: GFR Calc Estimation of creatinine jovani aranceOrdered By: Benito Romero on 10-05-2024 Estimated Creatinine Clearance Calc 30.27 ml/min [facility] Femur Min 2 Viewson 10-05-[address] [facility] Imaging Services [address] [place] [address] Femur Min 2 Views MR#: [id number] Acct: [id number] Name: RADHA MAYERS Rep #: [id number] : 1935 89 From: Rehan Dimas MD PCP: Dr. Rehan Lucero DO Status: REG ER Study: Femur Min 2 Views Date of Exam: 10/05/24 Exam# [id number] Ordering Dr: Benito Romero DO PROCEDURE: FEMUR MIN 2 VIEWS REASON FOR EXAM: Fall, left leg pain TECHNIQUE: 2 view(s) of left femur 4 total images to include the entire femur AP and lateral views COMPARISON: None. FINDINGS: LEFT FEMUR: No fracture. Status post left hip replacement, appears within limits. Vascular calcifications. RAD/Femur Min 2 Views IMPRESSION: No fracture Reading Location: [facility] CC: Dr. Rehan Lucero DO; Dr. Benito Romero DO Plaster Machine Operator: Signed Normal [facility] Foot min 3 Viewson 5 Foot [address] [facility] Imaging Services [facility] [place] [address] Foot min 3 Views MR#: [id number] Acct: [id number] Name: RADHA MAYERS Rep #: [id number] : 1935 F 89 From: Rehan Dimas MD PCP: Dr. Rehan Lucero DO Status: REG ER Study: Foot min 3 Views Date of Exam: 10/05/24 Exam# [id number] Ordering Dr: Benito Romero DO PROCEDURE: FOOT MIN 3 VIEWS REASON FOR EXAM: Injury, fall TECHNIQUE: 3 views of left foot COMPARISON: None. FINDINGS: No acute fracture or dislocation. Osteopenia. Osteoarthrosis 1st and 5th metatarsophalangeal joint. Vascular calcifications. Enthesophyte formation Achilles side of the calcaneus. RAD/Foot min 3 Views IMPRESSION: No acute fracture or dislocation Reading Location: [facility] CC: Dr. Rehan Lucero DO; Dr. Benito Romero DO Plaster Machine Operator: Signed Normal [facility] Glomerular filtration rate ( GFR) estimationOrdered By: Benito Romero on 10-05-2024 Estimated GFR (MDRD) Non-Af Amer 54 mL/min Low >60 [facility] Comment on above: Non- GFR Calc GFR/1.73 sq M.predicted among non-blacks MDRD (S/P/Bld) [Vol rate/Area] 54 mL/min/{1.73_m2} Low >60 [facility] Comment on above: Non- GFR Calc Glucose measurementOrdered B y: Benito Romero on 10-05-2024 Glucose [Mass/Vol] 122 mg/dL High 74-106 [facility] Comment on above: Fasting Glucose resu lt from 100 to 125 mg/dL suggests IMPAIRED HOMEOSTASIS per A.D.A. criteria. Hematocrit Auto (Bld) [Volum e fraction]Ordered By: Benito Romero on 10-05-2024 Hematocrit (Bld) [Volume fraction] 36.1 % Low 37-47 [facility] Hemoglobin measurementOrdere d By: Benito Romero on 10-05-2024 Hemoglobin (Bld) [Mass/Vol] 11.8 g/dL Low 12.0-15.0 [facility] Immature granulocytes/100 WB C Auto (Bld)Ordered By: Benito Romero on 10-05-2024 Immature granulocytes/100 WBC (Bld) 0.500 % 0.0-0.9 [facility] Comment on above: IG% - Immature Granu locytes (promyelocytes, myelocytes and metamyelocytes) > 1% indicates that a LEFT SHIFT is Present. Influenza virus A and B and SARS-CoV-2 (COVID-19) and Respiratory syncytial virus RNAOrdered By: Benito Romero on 10-05-2024 SARS-CoV-2 (COVID-19) RNA AUDELIA+probe Ql (Unsp spec) [facility] International normalized rat io (INR) calculationOrdered By: Benito Romero on 10-05-2024 INR Coag (Bld) [Relative time] 1.2 {INR} [facility] Knee 3 Viewson 10-05-[address] [facility] Imaging Services [address] [place], [place] [address] Knee 3 Views MR#: [id number] Acct: [id number] Name: RADHA MAYERS Rep #: [id number] : 1935 F 89 From: Rehan Dimas MD PCP: Dr. Rehan Lucero DO Status: REG ER Study: Knee 3 Views Date of Exam: 10/05/24 Exam# [id number] Ordering Dr: Benito Romero DO PROCEDURE: KNEE [...] swelling and note of lipohemarthrosis. Reading Location: [id number] CC: Dr. Rehan Lucero DO; Dr. Benito Romero DO Plaster Machine Operator: Signed Normal [facility] Laboratory - Chemistry and C hemistry - challengeOrdered By: Benito Romero on 10-05-2024 AST [Catalytic activity/Vol] 17 U/L 15-37 [facility] Lymphocytes Auto (Unsp spec) [#/Vol]Ordered By: Benito Romero on 10-05-2024 Lymphocytes (Bld) [#/Vol] 0.85 10*3/uL 0.83-4.51 [facility] Lymphocytes/100 WBC Auto (Un sp spec)Ordered By: Benito Romero on 10-05-2024 Lymphocytes/100 WBC (Bld) 6.8 % Low 19-41 [facility] MCV (mean corpuscular volume ) determinationOrdered By: Benito Romero on 10-05-2024 MCV (RBC) [Entitic vol] 94.3 fL 81-99 [facility] Mean corpuscular hemoglobin (MCH) determinationOrdered By: Benito Romero on 10-05-2024 MCH (RBC) [Entitic mass] 30.8 pg 27.0-32.0 [facility] Mean corpuscular hemoglobin concentration (MCHC) determinationOrdered By: Benito Romero on 10-05-2024 MCHC (RBC) [Mass/Vol] 32.7 g/dL 32-36 [facility] Mean platelet volume determi nationOrdered By: Benito Romero on 10-05-2024 Platelet mean volume (Bld) [Entitic vol] 10.8 fL 6.2-12.0 [facility] Monocyte percentageOrdered B y: Benito Romero on 10-05-2024 Monocytes/100 WBC (Bld) 8.0 % 0-10 [facility] Neutrophil percentageOrdered By: Benito Romero on 10-05-2024 Neutrophils/100 WBC (Bld) 83.6 % High 47-70 [facility] Nucleated red blood cell per centageOrdered By: Benito Romero on 10-05-2024 Nucleated RBC/100 WBC (Bld) [Ratio] 0 % 0-5 [facility] Pelvis 1 or 2 Viewson [address] [facility] Imaging Services [address] [place] [address] Pelvis 1 or 2 Views MR#: [id number] Acct: [id number] Name: RADHA MAYERS Rep #: [id number] : 1935 F 89 From: Rehan Dimas MD PCP: Dr. Rehan Lucero DO Status: REG ER Study: Pelvis 1 or 2 Views Date of Exam: 10/05/24 Exam# [id number] Ordering Dr: Benito Romero DO PROCEDURE: PELVIS [...] Views IMPRESSION: No fracture identified. Reading Location: [facility] CC: Dr. Rehan Lucero, DO; Dr. Benito Romero, DO Plaster Machine Operator: Signed Normal [facility] Platelet countOrdered By: Vijay Romero on 10-05-2024 Platelets (Bld) [#/Vol] 264 10*3/uL 150-450 [facility] Potassium measurementOrdered By: Benito Romero on 10-05-2024 Potassium [Moles/Vol] 4.1 mmol/L 3.5-5.1 [facility] Prothrombin timeOrdered By: Benito Romero on 10-05-2024 PT Coag (PPP) [Time] 15.8 s High 11.7-14.9 [facility] RBC Auto (Bld) [#/Vol]Ordere d By: Benito Romero on 10-05-2024 RBC (Bld) [#/Vol] 3.83 10*6/uL Low 4.2-5.4 [facility] Serum anion gap measurementO rdered By: Benito Romero on 10-05-2024 Anion gap [Moles/Vol] 7 mmol/L 5-15 [facility] Serum globulin measurementOr dered By: Benito Romero on 10-05-2024 Globulin (S) [Mass/Vol] 3.6 g/dL 2.2-4.2 [facility] Serum or plasma alanine saleem otransferase (ALT) measurementOrdered By: Benito Romero on 10-05-2024 ALT [Catalytic activity/Vol] 13 U/L 13-56 [facility] Serum or plasma albumin kailyn urement (mass/volume)Ordered By: Benito Romero on 10-05-2024 Albumin [Mass/Vol] 3.4 g/dL 3.2-5.0 [facility] Serum or plasma alkaline leanne sphatase measurementOrdered By: Benito Romero on 10-05-2024 ALP [Catalytic activity/Vol] 45 U/L 45-117 [facility] Serum or plasma calcium kailyn urement (mass/volume)Ordered By: Benito Romero on 10-05-2024 Calcium [Mass/Vol] 9.1 mg/dL 8.5-10.1 [facility] Serum or plasma creatinine m easurement (mass/volume)Ordered By: Benito Romero on 10-05-2024 Creatinine [Mass/Vol] 1.03 mg/dL High 0.55-1.02 [facility] Comment on above: The validity of the calculated GFR & GFRAA in patients over 70 years has not been determined. Clinical correlation is essential. Serum or plasma urea nitroge n measurement (mass/volume)Ordered By: Benito Romero on 10-05-2024 Urea nitrogen [Mass/Vol] 21 mg/dL High 7-18 [facility] Sodium levelOrdered By: Benito Romero on 10-05-2024 Sodium [Moles/Vol] 136 mmol/L 136-145 [facility] Spine Cervical without Contr ason 10-05-[address] [facility] Imaging Services [address] [place] [id number] Spine Cervical without Contras MR#: [id number] Acct: [id number] Name: RADHA MAYERS Rep #: [id number] : 1935 F 89 From: Rehan Dimas MD PCP: Dr. Rehan Lucero DO Status: REG ER Study: Spine Cervical without Contras Date of Exam: 0 10/05/24 Exam# [id number] Ordering Dr: Benito Romero DO PROCEDURE: SPINE [...] use of iterative reconstruction technique). Reading Location: [facility] CC: Dr. Rehan Lucero DO; Dr. Benito Romero DO Plaster Machine Operator: Signed Normal [facility] Spine Lumbar without Contras ton 10-05-[address] [facility] Imaging Services [address] [place] [address] Spine Lumbar without Contrast MR#: [id number] Acct: [id number] Name: RADHA MAYERS Rep #: [id number] : 1935 F 89 From: Rehan Dimas MD PCP: Dr. Rehan Lucero DO Status: REG ER Study: Spine Lumbar without Contrast Date of Exam: Exam# [id number] Ordering Dr: Benito Romero DO PROCEDURE: SPINE LUMBAR WITHOUT CONTRAST REASON FOR EXAM: Injury, fall, chronic pain . TECHNIQUE: Lumbar spine CT without contrast. Coronal and sagittal reformatted images CONTRAST: None COMPARISON: None. FINDINGS: 5 cjq-msh-rryiiew lumbar vertebral type bodies. No acute fracture [...] further characterize as warranted. Aortoiliac atherosclerotic calcifications. 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 CT/Spine Lumbar [...] use of iterative reconstruction technique). Reading Location: [facility] CC: Dr. Rehan Lucero DO; Dr. Benito Romero DO Plaster Machine Operator: Signed Normal [facility] Spine Thoracic without Contr ason 10-05-[address] [facility] Imaging Services [address] [place] [address] Spine Thoracic without Contras MR#: [id number] Acct: [id number] Name: RADHA MAYERS Rep #: [id number] : 1935 F 89 From: Rehan Dimas MD PCP: Dr. Rehan Lucero DO Status: REG ER Study: Spine Thoracic without Contras Date of Exam: 0 10/05/24 Exam# [id number] Ordering Dr: Benito Romero DO PROCEDURE: SPINE [...] evidence of pericardial or pleural effusion identified. [id number] appearing hiatal hernia with air-fluid level in [...] use of iterative reconstruction technique). Reading Location: [facility] CC: Dr. Rehan Lucero DO; Dr. Benito Romero DO Plaster Machine Operator: Signed Normal [facility] Total proteinOrdered By: Marino Romero on 10-05-2024 Protein [Mass/Vol] 7.0 g/dL 6.4-8.2 [facility] White blood cell (WBC) count Ordered By: Benito Romero on 10-05-2024 WBC (Bld) [#/Vol] 12.5 10*3/uL High 4.4-11.0 [facility] aPTT Coag (PPP) [Time]Ordere d By: Benito Romero on 10-05-2024 aPTT Coag (Bld) [Time] 29.0 s 24.1-36.2 [facility] XR CHEST 2 VIEWSon 4 XR CHEST [...] 06/18/2024 11:15:49 AM Ordering Provider: LEXIE VARGHESE [facility] Basophil percentageOrdered B y: Autumn Haas on 12-10-2023 Chloride [Moles/Vol] 109 mmol/L 98-107 [facility] Glucose [Mass/Vol] 128 mg/dL 74-106 [facility] Comment on above: Fasting Glucose resu lt greater than or equal to 126 mg/dL suggests DIABETES MELLITUS per A.D.A. criteria. Potassium [Moles/Vol] 4.4 mmol/L 3.5-5.1 [facility] Sodium [Moles/Vol] 139 mmol/L 136-145 [facility] Laboratory - Chemistry and C hemistry - challengeOrdered By: Autumn Haas on 12-10-2023 CO2 [Moles/Vol] 26.0 mmol/L 21.0-32.0 [facility] Urea nitrogen/Creatinine [Mass ratio] 23.9 mg/mg 10-20 [facility] No Panel InformationOrdered By: Autumn Haas on 12-10-2023 Estimated GFR (MDRD) Amer 40 mL/min >60 [facility] Comment on above: GFR Calc Estimated GFR (MDRD) Non-Af Amer 33 mL/min >60 [facility] Comment on above: Non- GFR Calc Serum or plasma calcium kailyn urement (mass/volume)Ordered By: Autumn Haas on 12-10-2023 Calcium [Mass/Vol] 9.2 mg/dL 8.5-10.1 [facility] Serum or plasma creatinine m easurement (mass/volume)Ordered By: Autumn Haas on 12-10-2023 Creatinine [Mass/Vol] 1.59 mg/dL 0.55-1.02 [facility] Comment on above: The validity of the calculated GFR & GFRAA in patients over 70 years has not been determined. Clinical correlation is essential. Serum or plasma urea nitroge n measurement (mass/volume)Ordered By: Autumn Haas on 12-10-2023 Urea nitrogen [Mass/Vol] 38 mg/dL 7-18 [facility] Thin prep Papanicolaou smear with manual screeningOrdered By: Autumn Haas on 12-10-2023 Thin prep Papanicolaou smear with manual screening 4 5-15 [facility] Absolute lymphocyte countOrd ered By: Autumn Haas on 12-07-2023 Lymphocytes Auto (Unsp spec) [#/Vol] 1.09 10*3/uL 0.83-4.51 [facility] Automated lymphocyte count a s percentage of total leukocytesOrdered By: Autumn Haas on 12-07-2023 Lymphocytes/100 WBC Auto (Unsp spec) 19.8 % 19-41 [facility] Basophil percentageOrdered B y: Autumn Haas on 12-07-2023 Basophils/100 WBC (Bld) 0.5 % 0-1 [facility] Chloride [Moles/Vol] 109 mmol/L 98-107 [facility] Eosinophils/100 WBC (Bld) 1.5 % 0-5 [facility] Glucose [Mass/Vol] 100 mg/dL 74-106 [facility] Comment on above: Fasting Glucose resu lt from 100 to 125 mg/dL suggests IMPAIRED HOMEOSTASIS per A.D.A. criteria. Hemoglobin (Bld) [Mass/Vol] 11.9 g/dL 12.0-15.0 [facility] Monocytes/100 WBC (Bld) 9.6 % 0-10 [facility] Neutrophils (Bld) [#/Vol] 3.8 10*3/uL 2.0-7.7 [facility] Neutrophils/100 WBC (Bld) 68.4 % 47-70 [facility] Potassium [Moles/Vol] 5.7 mmol/L 3.5-5.1 [facility] Sodium [Moles/Vol] 137 mmol/L 136-145 [facility] WBC (Bld) [#/Vol] 5.5 10*3/uL 4.4-11.0 [facility] Determination of erythrocyte mean corpuscular volume (MCV)Ordered By: Autumn Haas on 12-07-2023 MCV (RBC) [Entitic vol] 94.2 fL 81-99 [facility] Erythrocyte distribution wid th ratioOrdered By: Autumn Haas on 12-07-2023 Erythrocyte distribution width (RBC) [Ratio] 13.1 % 11.6-14.6 [facility] Erythrocyte distribution wid th standard deviationOrdered By: Autumn Haas on 12-07-2023 Erythrocyte distribution width (RBC) [Entitic vol] 45.4 fL 35.1-43.9 [facility] Hematocrit Auto (Bld) [Volum e fraction]Ordered By: Autumn Haas on 12-07-2023 Hematocrit (Bld) [Volume fraction] 37.6 % 37-47 [facility] Immature granulocytes/100 WB C Auto (Bld)Ordered By: Autumn Haas on 12-07-2023 Immature granulocytes/100 WBC (Bld) 0.200 % 0.0-0.9 [facility] Comment on above: IG% - Immature Granu locytes (promyelocytes, myelocytes and metamyelocytes) > 1% indicates that a LEFT SHIFT is Present. Laboratory - Chemistry and C hemistry - challengeOrdered By: Autumn Haas on 12-07-2023 CO2 [Moles/Vol] 25.0 mmol/L 21.0-32.0 [facility] Urea nitrogen/Creatinine [Mass ratio] 21.1 mg/mg 10-20 [facility] Laboratory - Hematology and Cell countsOrdered By: Autumn Haas on 12-07-2023 MCH (RBC) [Entitic mass] 29.8 pg 27.0-32.0 [facility] MCHC (RBC) [Mass/Vol] 31.6 g/dL 32-36 [facility] Nucleated RBC/100 WBC (Bld) [Ratio] 0 % 0-5 [facility] Platelet mean volume (Bld) [Entitic vol] 12.1 fL 6.2-12.0 [facility] Platelets (Bld) [#/Vol] 223 10*3/uL 150-450 [facility] No Panel InformationOrdered By: Autumn Haas on 12-07-2023 Estimated GFR (MDRD) Amer 36 mL/min >60 [facility] Comment on above: GFR Calc Estimated GFR (MDRD) Non-Af Amer 30 mL/min >60 [facility] Comment on above: Non- GFR Calc Vitamin D 25-Hydroxy 28.2 ng/mL [facility] Comment on above: Vitamin D 25(OH) Sta tus Range Deficiency <20 ng/mL (50nmol/L) Insufficiency 20 - 30 ng/mL (50 - 75 nmol/L) Sufficiency 30 - 100 ng/mL (75 - 250 nmol/L) Toxicity >100 ng/mL (>250 nmol/L) RBC Auto (Bld) [#/Vol]Ordere d By: Autumn Haas on 12-07-2023 RBC (Bld) [#/Vol] 3.99 10*6/uL 4.2-5.4 [facility] Serum or plasma calcium kailyn urement (mass/volume)Ordered By: Autumn Haas on 12-07-2023 Calcium [Mass/Vol] 9.4 mg/dL 8.5-10.1 [facility] Serum or plasma creatinine m easurement (mass/volume)Ordered By: Autumn Haas on 12-07-2023 Creatinine [Mass/Vol] 1.71 mg/dL 0.55-1.02 [facility] Comment on above: The validity of the calculated GFR & GFRAA in patients over 70 years has not been determined. Clinical correlation is essential. Serum or plasma thyroid stim ulating hormone (TSH) measurement (units/volume)Ordered By: Autumn Haas on 12-07-2023 TSH Qn 0.20 uIU/mL 0.358-3.74 [facility] Serum or plasma urea nitroge n measurement (mass/volume)Ordered By: Autumn Haas on 12-07-2023 Urea nitrogen [Mass/Vol] 36 mg/dL 7-18 [facility] Thin prep Papanicolaou smear with manual screeningOrdered By: Autumn Haas on 12-07-2023 Thin prep Papanicolaou smear with manual screening 3 5-15 [facility] BD BONE DENSITY DEXA AXIAL S [...] 08/21/2023 3:26:48 PM Ordering Provider: REHAN LUCERO [facility] ([place]) Barber 05-14-2023 Potassium [Moles/Vol] 4.9 mmol/L Normal 3.5-5.1 [facility] ([place]) Comment on above: Performed By: #### K #### [place] [address] LABORATORYOrdered By: SYSTEM SYSTEM on 05-14-2023 Potassium [Moles/Vol] 4.9 mmol/L Invalid Interpretation Code 3.5 - 5.1 mmol/L AO ADM SS .GFRon 05-09-2023 GFR Non- 34 ml/min/1.73sqm [facility] ([place]) Comment on above: Result Comment: GFR Population [...] By: #### B MP, TSH, GFR #### [address] [address] GFR 41 ml/min/1.73sqm Normal [facility] ([place]) Comment on above: Result Comment: GFR Population [...] By: #### B MP, TSH, GFR #### [address] [address] BMPon 05-09-2023 BUN/Creatinine Ratio 18 ratio Normal 7-27 [facility] ([place]) Comment on above: Performed By: #### B MP, TSH, GFR #### [address] [address] Calcium [Mass/Vol] 9.0 mg/dL Normal 8.4-10.2 [facility] ([place]) Comment on above: Performed By: #### B MP, TSH, GFR #### [address] [address] Chloride [Moles/Vol] 105 mmol/L Normal 98-107 [facility] ([place]) Comment on above: Performed By: #### B MP, TSH, GFR #### [address] [address] CO2 [Moles/Vol] 24 mmol/L Normal 23-31 [facility] ([place]) Comment on above: Performed By: #### B MP, TSH, GFR #### [address] [address] Creatinine [Mass/Vol] 1.47 mg/dL High 0.55-1.02 [facility] ([place]) Comment on above: Performed By: #### B MP, TSH, GFR #### [address] [address] Electrolyte Balance 10.0 mEq/L Normal 4.0-15.0 [facility] ([place]) Comment on above: Performed By: #### B MP, TSH, GFR #### [address] [address] Glucose [Mass/Vol] 94 mg/dL Normal 83-110 [facility] ([place]) Comment on above: Performed By: #### B MP, TSH, GFR #### [address] [address] Potassium [Moles/Vol] 5.7 mmol/L High 3.5-5.1 [facility] ([place]) Comment on above: Performed By: #### B MP, TSH, GFR #### [address] [address] Sodium [Moles/Vol] 139 mmol/L Normal 136-145 [facility] ([place]) Comment on above: Performed By: #### B MP, TSH, GFR #### [address] [address] Urea nitrogen [Mass/Vol] 27 mg/dL High 7-18 [facility] ([place]) Comment on above: Performed By: #### B MP, TSH, GFR #### [address] [address] LABORATORYOrdered By: SYSTEM SYSTEM on 05-09-2023 Calcium [...] Qn 1.47 m[IU]/L Normal 0.36-3.74 [facility] ([place]) Comment on above: Performed By: #### B MP, TSH, GFR #### [place] [id number] [place], [place] [address] Basophil percentageOrdered B y: Scottie Kim on 01-24-2023 Basophil percentage 3.1 mg/dL 2.5-4.9 [facility] Chloride [Moles/Vol] 111 mmol/L 98-107 [facility] Glucose [Mass/Vol] 89 mg/dL 74-106 [facility] Potassium [Moles/Vol] 4.7 mmol/L 3.5-5.1 [facility] Sodium [Moles/Vol] 139 mmol/L 136-145 [facility] Laboratory - Chemistry and C hemistry - challengeOrdered By: Scottie Kim on 01-24-2023 CO2 [Moles/Vol] 25.0 mmol/L 21.0-32.0 [facility] Urea nitrogen/Creatinine [Mass ratio] 30.0 mg/mg 10-20 [facility] No Panel InformationOrdered By: Scottie Kim on 01-24-2023 Parathyroid Hormone (Intact) 153.3 pg/mL 18.4-80.1 [facility] Estimated GFR (MDRD) Amer 46 mL/min >60 [facility] Comment on above: GFR Calc Estimated GFR (MDRD) Non-Af Amer 38 mL/min >60 [facility] Comment on above: Non- GFR Calc Serum or plasma albumin kailyn urement (mass/volume)Ordered By: Scottie Kim on 01-24-2023 Albumin [Mass/Vol] 3.9 g/dL 3.2-5.0 [facility] Serum or plasma calcium kailyn urement (mass/volume)Ordered By: Scottie Kim on 01-24-2023 Calcium [Mass/Vol] 9.2 mg/dL 8.5-10.1 [facility] Serum or plasma creatinine m easurement (mass/volume)Ordered By: Scottie Kim on 01-24-2023 Creatinine [Mass/Vol] 1.40 mg/dL 0.55-1.02 [facility] Comment on above: The validity of the calculated GFR & GFRAA in patients over 70 years has not been determined. Clinical correlation is essential. Serum or plasma urea nitroge n measurement (mass/volume)Ordered By: Scottie Kim on 01-24-2023 Urea nitrogen [Mass/Vol] 42 mg/dL 7-18 [facility] No Panel InformationOrdered By: Dr. Neff on 01-03-2023 Troponin I High Sensitivity 8 pg/mL 3.0-54.0 [facility] Comment on above: Please Note: New [place]uge[place] t Units and Gender Specific Reference Ranges. For more information see Policy Stat Procedure [place] High Sensitivity Troponin (TNIH) and attachments. Absolute lymphocyte countOrd ered By: Dr. Neff on 01-02-2023 Lymphocytes Auto (Unsp spec) [#/Vol] 1.22 10*3/uL 0.83-4.51 [facility] Basophil percentageOrdered B y: Dr. Neff on 01-02-2023 Basophils/100 WBC (Bld) 0.4 % 0-1 [facility] Chloride [Moles/Vol] 109 mmol/L 98-107 [facility] Eosinophils/100 WBC (Bld) 3.5 % 0-5 [facility] Glucose [Mass/Vol] 117 mg/dL 74-106 [facility] Comment on above: Fasting Glucose resu lt from 100 to 125 mg/dL suggests IMPAIRED HOMEOSTASIS per A.D.A. criteria. Neutrophils (Bld) [#/Vol] 3.4 10*3/uL 2.0-7.7 [facility] Neutrophils/100 WBC (Bld) 61.7 % 47-70 [facility] Potassium [Moles/Vol] 4.0 mmol/L 3.5-5.1 [facility] Sodium [Moles/Vol] 141 mmol/L 136-145 [facility] WBC (Bld) [#/Vol] 5.4 10*3/uL 4.4-11.0 [facility] Blood erythrocytes count (nu mber/volume)Ordered By: Dr. Neff on 01-02-2023 RBC (Bld) [#/Vol] 3.84 10*6/uL 4.2-5.4 [facility] Blood hemoglobin measurement (mass/volume)Ordered By: Dr. Neff on 01-02-2023 Hemoglobin (Bld) [Mass/Vol] 11.6 g/dL 12.0-15.0 [facility] Blood lymphocytes/100 leukoc ytesOrdered By: Dr. Neff on 01-02-2023 Lymphocytes/100 WBC (Bld) 22.4 % 19-41 [facility] Blood monocytes/100 leukocyt esOrdered By: Dr. Neff on 01-02-2023 Monocytes/100 WBC (Bld) 11.8 % 0-10 [facility] Blood platelet mean volumeOr dered By: Dr. Neff on 01-02-2023 Platelet mean volume (Bld) [Entitic vol] 11.1 fL 6.2-12.0 [facility] Determination of erythrocyte mean corpuscular volume (MCV)Ordered By: Dr. Neff on 01-02-2023 MCV (RBC) [Entitic vol] 95.1 fL 81-99 [facility] Hematocrit Auto (Bld) [Volum e fraction]Ordered By: Dr. Neff on 01-02-2023 Hematocrit (Bld) [Volume fraction] 36.5 % 37-47 [facility] Laboratory - Chemistry and C hemistry - challengeOrdered By: Dr. Neff on 01-02-2023 CO2 [Moles/Vol] 26.0 mmol/L 21.0-32.0 [facility] Urea nitrogen/Creatinine [Mass ratio] 21.6 mg/mg 10-20 [facility] Laboratory - Hematology and Cell countsOrdered By: Dr. Neff on 01-02-2023 Erythrocyte distribution width (RBC) [Entitic vol] 45.7 fL 35.1-43.9 [facility] Erythrocyte distribution width (RBC) [Ratio] 13.2 % 11.6-14.6 [facility] Immature granulocytes/100 WBC (Bld) 0.200 % 0.0-0.9 [facility] Comment on above: IG% - Immature Granu locytes (promyelocytes, myelocytes and metamyelocytes) > 1% indicates that a LEFT SHIFT is Present. MCH (RBC) [Entitic mass] 30.2 pg 27.0-32.0 [facility] Nucleated RBC/100 WBC (Bld) [Ratio] 0 % 0-5 [facility] MCHC Auto (RBC) [Mass/Vol]Or dered By: Dr. Neff on 01-02-2023 MCHC (RBC) [Mass/Vol] 31.8 g/dL 32-36 [facility] No Panel InformationOrdered By: Dr. Neff on 01-02-2023 Estimated Creatinine Clearance Calc 31.59 ml/min [facility] Estimated GFR (MDRD) Amer 60 mL/min >60 [facility] Comment on above: GFR Calc Estimated GFR (MDRD) Non-Af Amer 50 mL/min >60 [facility] Comment on above: Non- GFR Calc Platelets bldOrdered By: Dr. Neff on 01-02-2023 Platelets (Bld) [#/Vol] 217 10*3/uL 150-450 [facility] Serum or plasma calcium kailyn urement (mass/volume)Ordered By: Dr. Neff on 01-02-2023 Calcium [Mass/Vol] 8.7 mg/dL 8.5-10.1 [facility] Serum or plasma creatinine m easurement (mass/volume)Ordered By: Dr. Neff on 01-02-2023 Creatinine [Mass/Vol] 1.11 mg/dL 0.55-1.02 [facility] Comment on above: The validity of the calculated GFR & GFRAA in patients over 70 years has not been determined. Clinical correlation is essential. Serum or plasma urea nitroge n measurement (mass/volume)Ordered By: Dr. Neff on 01-02-2023 Urea nitrogen [Mass/Vol] 24 mg/dL 7-18 [facility] Thin prep Papanicolaou smear with manual screeningOrdered By: Dr. Neff on 01-02-2023 Thin prep Papanicolaou smear with manual screening 6 5-15 [facility] LABORATORYOrdered By: Estrellita Woo on 06-28-2022 [...] Stool Calprotectin 35 ug/g 0-120 [facility] Work Phone: Comment on above: Concentration Interp retation Follow-Up<16 - 50 ug/g Normal None>50 -120 ug/g Borderline Re-evaluate in 4-6 weeks >120 ug/g Abnormal Repeat as clinically indicatedPerformed at: [facility] [id number] [place], [place] [id number] Director: Louis Fletcher PhD, Phone: [phone] at: [facility] [id number] [place], [place] [id number] Director: Cira Frank MD, Phone: [phone] Stool Neutral Fats Normal . [facility] Work Phone: Comment on above: Normal (<60 Droplets /HPF) Endomysial IgA Antibody Negative Negative [facility] Work Phone: Qualitative fecal fat or lip idson 04-12-2022 Fat Ql (Stl) Normal . [facility] Work Phone: Comment on above: Normal (<100 Droplet s/HPF) Serum IgA measurement (units /volume)on 04-12-2022 IgA Qn (S) 111 mg/dL 64-422 [facility] Work Phone: Comment on above: Performed at: [facility] [address] [id number] Director: Louis Fletcher PhD, Phone: [phone] Serum or plasma C reactive p rotein measurement (mass/volume)on 04-12-2022 CRP [Mass/Vol] mg/L 0.0-3.0 [facility] Work Phone: Comment on above: C-Reactive Protein ( CRP) provides useful information for thediagnosis, therapy and monitoring of inflammatory processesand associated diseases. For the evaluation of Relative Riskfor Cardiovascular Disease, a High Sensitivity CRP (HSCRP)should be ordered. Serum tissue transglutaminas e IgA antibody assay (units/volume)on 04-12-2022 tTG IgA Qn (S) <2 U/mL 0-3 [facility] Work Phone: Comment on above: Negative [...] Basophil percentage 4.7 mg/dL 2.5-4.9 [facility] Work Phone: Chloride [Moles/Vol] 104 mmol/L 98-[address] [facility] [address] [facility] Work Phone: Glucose [Mass/Vol] 84 mg/dL 74-106 [facility] Work Phone: Potassium [Moles/Vol] 4.0 mmol/L 3.5-5.1 [facility] Work Phone: Comment on above: Slight Hemolysis, Re sult may be falsely increased. Sodium [Moles/Vol] 136 mmol/L 136-145 [facility] Work Phone: Laboratory - Chemistry and C hemistry - challengeon 12-08-2021 CO2 [Moles/Vol] 27.0 mmol/L 21.0-32.0 [facility] Work Phone: Urea nitrogen/Creatinine [Mass ratio] 23.6 mg/mg 10-20 [facility] Work Phone: No Panel Informationon 12-08 Estimated GFR (MDRD) Amer 39 mL/min >60 [facility] Work Phone: Comment on above: GFR Calc Estimated GFR (MDRD) Non-Af Amer 32 mL/min >60 [facility] Work Phone: Comment on above: Non- GFR Calc Parathyroid Hormone (Intact) 50.6 pg/mL 18.4-80.1 [facility] Work Phone: Serum or plasma albumin kailyn urement (mass/volume)on 12-08-2021 Albumin [Mass/Vol] 3.9 g/dL 3.2-5.0 [facility] Work Phone: Serum or plasma calcium kailyn urement (mass/volume)on 12-08-2021 Calcium [Mass/Vol] 9.5 mg/dL 8.5-10.1 [facility] Work Phone: Serum or plasma creatinine m easurement (mass/volume)on 12-08-2021 Creatinine [Mass/Vol] 1.61 mg/dL 0.55-1.02 [facility] Work Phone: Comment on above: The validity of the calculated GFR & GFRAA in patients over 70 years has not been determined. Clinical correlation is essential. Serum or plasma urea nitroge n measurement (mass/volume)on 12-08-2021 Urea nitrogen [Mass/Vol] 38 mg/dL 7-18 [facility] Work Phone: LABORATORYOrdered By: Gabino Eden [...] CNPNon 02-17-2021 CNPN Telephone (AGGENS4) RADHA MAYERS ([id number]) 1935 F Date Time Provider Department 02/17/21 [...] NURSING PROGon 02-17-2021 NURSING PROG HNO ID: [id number] Author: Lila De La Torre, MALCOM Service: [...] however resistance noted at approximately the 45 orsa. Patient did report knowing she had a [...] upon removal. [facility] RAD[facility] ([id number]) 1935 F Date Time Provider Department 02/08/21 KARUNA SHIELDS AGGENS4 During your visit today, we recorded the following information about you: Bg Ag RN 02/08/2021 2:58 PM Signed I called the patient's daughter, Luz and verbally discussed and reviewed the information about esophageal manometry. Patient is [place] and does not drive, so all the appointments are scheduled through her daughter. All of Luz's questions were answered. I emailed the patient written information about esophageal manometry and the prep instructions and directions for the appointment to Luz, per her request, to [email or web address]. Patient will not need Covid testing as [...] current medications (procedure) Done Invalid Interpretation Code [facility] Work Phone: Tobacco smoking status NHIS Never smoker [facility] Work Phone: Tobacco use CPHS Never smoker Invalid Interpretation Code [facility] Work Phone: Vital Signs Date Time Vital Sign Value Performing Clinician Facility 05-25-2025 07:54-0400 Body height 149.[address] Rehan Lucero DO Work Phone: [facility] 05-25-2025 07:54-0400 Body mass index (BMI) [Ratio] 21.8 kg/m2 Dr. Rehan Lucero DO Work Phone: [facility] 05-25-2025 07:54-0400 Body weight 48.[address] Rehan Lucero DO Work Phone: [facility] 05-25-2025 07:54-0400 Diastolic blood pressure 78 mm[Hg] Dr. Rehan Lucero DO Work Phone: [facility] 05-25-2025 07:54-0400 Heart rate 63 /min Dr. Rehan Lucero DO Work Phone: [facility] 05-25-2025 07:54-0400 Respiratory rate 18 /min Dr. Rehan Lucero DO Work Phone: [facility] 05-25-2025 07:54-0400 SaO2% (BldA) [Mass fraction] 98 % Dr. Rehan Lucero DO Work Phone: [facility] 05-25-2025 07:54-0400 Systolic blood pressure 134 mm[Hg] Dr. Rehan Lucero DO Work Phone: [facility] 11-29-2024 08:35-0400 Heart rate 75 /min Dr. Rehan Lucero DO Work Phone: [facility] 11-29-2024 07:47-0400 SaO2% (BldA) [Mass fraction] 95 % Dr. Rehan Lucero DO Work Phone: [facility] 11-29-2024 07:46-0400 Body temperature 98.1 [degF] Dr. Rehan Lucero DO Work Phone: [facility] 11-29-2024 07:46-0400 Diastolic blood pressure 75 mm[Hg] Dr. Rehan Lucero DO Work Phone: [facility] 11-29-2024 07:46-0400 Respiratory rate 18 /min Dr. Rehan Lucero DO Work Phone: [facility] 11-29-2024 07:46-0400 Systolic blood pressure 136 mm[Hg] Dr. Rehan Lucero DO Work Phone: [facility] 11-27-2024 22:44-0400 Body height 149.[address] Rehan Luecro DO Work Phone: [facility] 11-27-2024 22:44-0400 Body mass index (BMI) [Ratio] 21.5 kg/m2 Dr. Rehan Lucero DO Work Phone: [facility] 11-27-2024 22:44-0400 Body weight 48.[address] Rehan Lucero DO Work Phone: [facility] 11-27-2024 22:23-0400 Body temperature 97.5 [degF] Dr. Rehan Lucero DO Work Phone: [facility] 11-27-2024 22:23-0400 Diastolic blood pressure 75 mm[Hg] Dr. Rehan Lucero DO Work Phone: [facility] 11-27-2024 22:23-0400 Heart rate 70 /min Dr. Rehan Lucero DO Work Phone: [facility] 11-27-2024 22:23-0400 Respiratory rate 17 /min Dr. Rehan Lucero DO Work Phone: [facility] 11-27-2024 22:23-0400 SaO2% (BldA) [Mass fraction] 97 % Dr. Rehan Lucero DO Work Phone: [facility] 11-27-2024 22:23-0400 Systolic blood pressure 148 mm[Hg] Dr. Rehan Lucero DO Work Phone: [facility] 11-27-2024 17:47-0400 Body height 149.[address] Rehan Lucero DO Work Phone: [facility] 11-27-2024 17:47-0400 Body mass index (BMI) [Ratio] 22.6 kg/m2 Dr. Rehan Lucero DO Work Phone: [facility] 11-27-2024 17:47-0400 Body weight [address] Rehan Lucero DO Work Phone: [facility] 11-26-2024 14:21-0400 Body mass index (BMI) [Ratio] 21.2 kg/m2 Dr. Rehan Lucero DO Work Phone: [facility] 11-26-2024 14:21-0400 Body weight 47.[address] Rehan Lucero DO Work Phone: [facility] 11-26-2024 14:21-0400 Diastolic blood pressure 67 mm[Hg] Dr. Rehan Lucero DO Work Phone: [facility] 11-26-2024 14:21-0400 Heart rate 62 /min Dr. Rehan Lucero DO Work Phone: [facility] 11-26-2024 14:21-0400 Respiratory rate 16 /min Dr. Rehan Lucero DO Work Phone: [facility] 11-26-2024 14:21-0400 Systolic blood pressure 111 mm[Hg] Dr. Rehan Lucero DO Work Phone: [facility] 10-06-2024 17:01-0500 Body temperature 98.3 [degF] Dr. Rehan Lucero DO Work Phone: [facility] 10-06-2024 17:01-0500 Diastolic blood pressure 65 mm[Hg] Dr. Rehan Lucero DO Work Phone: [facility] 10-06-2024 17:01-0500 Heart rate 68 /min Dr. Rehan Lucero DO Work Phone: [facility] 10-06-2024 17:01-0500 Respiratory rate 16 /min Dr. Rehan Lucero DO Work Phone: [facility] 10-06-2024 17:01-0500 SaO2% (BldA) [Mass fraction] 99 % Dr. Rehan Lucero DO Work Phone: [facility] 10-06-2024 17:01-0500 Systolic blood pressure 130 mm[Hg] Dr. Rehan Lucero DO Work Phone: [facility] 10-06-2024 13:05-0500 Body height 149.[address] Rehan Lucero DO Work Phone: [facility] 10-06-2024 05:15-0500 Body temperature 98 [degF] Dr. Rehan Lucero DO Work Phone: [facility] 10-06-2024 05:15-0500 Diastolic blood pressure 65 mm[Hg] Dr. Rehan Lucero DO Work Phone: [facility] 10-06-2024 05:15-0500 Heart rate 80 /min Dr. Rehan Lucero DO Work Phone: [facility] 10-06-2024 05:15-0500 Respiratory rate 18 /min Dr. Rehan Lucero DO Work Phone: [facility] 10-06-2024 05:15-0500 SaO2% (BldA) [Mass fraction] 94 % Dr. Rehan Lucero DO Work Phone: [facility] 10-06-2024 05:15-0500 Systolic blood pressure 114 mm[Hg] Dr. Rehan Lucero DO Work Phone: [facility] 10-05-2024 23:05-0500 Body mass index (BMI) [Ratio] 26.1 kg/m2 Dr. Rehan Lucero DO Work Phone: [facility] 10-05-2024 23:05-0500 Body weight 58.[address] Rehan Lucero DO Work Phone: [facility] 07-17-2024 11:37-0500 Body temperature 97.16 [degF] REHAN LUCERO DO [facility] 07-17-2024 11:37-0500 Diastolic Blood Pressure Non-Invasive 79 mm[Hg] REHAN LUCERO DO [facility] 07-17-2024 11:37-0500 Heart rate 71 /min REHAN LUCERO DO [facility] 07-17-2024 11:37-0500 Reason For Taking VItal Signs REHAN LUCERO DO [facility] 07-17-2024 11:37-0500 Respiratory rate 16 /min REHAN LUCERO DO [facility] 07-17-2024 11:37-0500 Systolic Blood Pressure Non-Invasive 162 mm[Hg] REHAN LUCERO DO [facility] 02-04-2024 10:39-0400 Diastolic Blood Pressure Non-Invasive 68 mm[Hg] DR LOUIS PEARCE MD [facility] 02-04-2024 10:39-0400 Heart rate 71 /min DR LOUIS PEARCE MD [facility] 02-04-2024 10:39-0400 Respiratory rate 21 /min DR LOUIS PEARCE MD [facility] 02-04-2024 10:39-0400 Systolic Blood Pressure Non-Invasive 104 mm[Hg] DR LOUIS PEARCE MD [facility] 02-04-2024 10:37-0400 Diastolic Blood Pressure Non-Invasive 65 mm[Hg] DR LOUIS PEARCE MD [facility] 02-04-2024 10:37-0400 Heart rate 66 /min DR LOUIS PEARCE MD [facility] 02-04-2024 10:37-0400 Respiratory rate 14 /min DR LOUIS PEARCE MD [facility] 02-04-2024 10:37-0400 Systolic Blood Pressure Non-Invasive 110 mm[Hg] DR LOUIS PEARCE MD [facility] 02-04-2024 10:30-0400 Diastolic Blood Pressure Non-Invasive 63 mm[Hg] DR LOUIS PEARCE MD [facility] 02-04-2024 10:30-0400 Heart rate 69 /min DR LOUIS PEARCE MD [facility] 02-04-2024 10:30-0400 Respiratory rate 19 /min DR LOUIS PEARCE MD [facility] 02-04-2024 10:30-0400 Systolic Blood Pressure Non-Invasive 96 mm[Hg] DR LOUIS PEARCE MD [facility] 02-04-2024 10:16-0400 Body temperature 97.7 [degF] DR LOUIS PEARCE MD [facility] 02-04-2024 10:10-0400 Respiratory Rate - Anes 20 br/min DR LOUIS PEARCE MD [facility] 02-04-2024 10:05-0400 Respiratory Rate - Anes 19 br/min DR LOUIS PEARCE MD [facility] 02-04-2024 09:30-0400 Body height 154.[address] LOUIS PEARCE MD [facility] 02-04-2024 09:30-0400 Body temperature 98.78 [degF] DR LOUIS PEARCE MD [facility] 02-04-2024 09:30-0400 Body weight 46.[address] LOUIS PEARCE MD [facility] 02-04-2024 09:30-0400 Heart rate 67 /min DR LOUIS PEARCE MD [facility] 12-18-2023 11:41-0400 Body temperature 97.7 [degF] REHAN LUCERO DO [facility] 12-18-2023 11:41-0400 Diastolic Blood Pressure Non-Invasive 88 mm[Hg] REHAN LUCERO DO [facility] 12-18-2023 11:41-0400 Heart rate 72 /min REHAN LUCERO DO [facility] 12-18-2023 11:41-0400 Reason For Taking VItal Signs REHAN LUCERO DO [facility] 12-18-2023 11:41-0400 Respiratory rate 14 /min REHAN LUCERO DO [facility] 12-18-2023 11:41-0400 Systolic Blood Pressure Non-Invasive 138 mm[Hg] REHAN LUCERO DO [facility] 12-07-2023 12:57-0400 Body height 149.[address] Rehan Lucero Work Phone: [facility] 12-07-2023 12:57-0400 Body mass index (BMI) [Ratio] 20.7 kg/m2 Dr. Rehan Lucero Work Phone: [facility] 12-07-2023 12:57-0400 Body weight 46.[address] Rehan Lucero Work Phone: [facility] 12-07-2023 12:57-0400 Diastolic blood pressure 71 mm[Hg] Dr. Rehan Lucero Work Phone: [facility] 12-07-2023 12:57-0400 Heart rate 72 /min Dr. Rehan Lucero Work Phone: [facility] 12-07-2023 12:57-0400 Respiratory rate 18 /min Dr. Rehan Lucero Work Phone: [facility] 12-07-2023 12:57-0400 SaO2% (BldA) [Mass fraction] 92 % Dr. Rehan Lucero Work Phone: [facility] 12-07-2023 12:57-0400 Systolic blood pressure 111 mm[Hg] Dr. Rehan Lucero Work Phone: [facility] 11-27-2023 08:15-0400 Body height 149.86 cm [facility] 11-27-2023 08:15-0400 Body mass index (BMI) [Ratio] 24.4 kg/m2 [facility] 11-27-2023 08:15-0400 Body temperature 98.1 [degF] [facility] 11-27-2023 08:15-0400 Body weight 54.8 kg [facility] 11-27-2023 08:15-0400 Diastolic blood pressure 83 mm[Hg] [facility] 11-27-2023 08:15-0400 Heart rate 72 /min [facility] 11-27-2023 08:15-0400 Respiratory rate 16 /min [facility] 11-27-2023 08:15-0400 SaO2% (BldA) [Mass fraction] 95 % [facility] 11-27-2023 08:15-0400 Systolic blood pressure 169 mm[Hg] [facility] 06-12-2023 11:35-0400 Body temperature 97.52 [degF] REHAN NIC [employer] [facility] 06-12-2023 11:35-0400 Diastolic Blood Pressure Non-Invasive 68 1 REHAN HERNANDEZY DO [facility] 06-12-2023 11:35-0400 Heart rate 64 /min REHAN LUCERO DO [facility] 06-12-2023 11:35-0400 Reason For Taking VItal Signs REHAN LUCERO [employer] [facility] 06-12-2023 11:35-0400 Respiratory rate 18 /min REHAN LUCERO [employer] [facility] 06-12-2023 11:35-0400 Systolic Blood Pressure Non-Invasive 124 1 REHAN NIC [employer] [facility] 01-03-2023 02:05-0400 Diastolic blood pressure 73 mm[Hg] Dr. Rehan Lucero Work Phone: [facility] 01-03-2023 02:05-0400 Heart rate 62 /min Dr. Rehan Lucero Work Phone: [facility] 01-03-2023 02:05-0400 Respiratory rate 18 /min Dr. Rehan Lucero Work Phone: [facility] 01-03-2023 02:05-0400 SaO2% (BldA) [Mass fraction] 97 % Dr. Rehan Lucero Work Phone: [facility] 01-03-2023 02:05-0400 Systolic blood pressure 173 mm[Hg] Dr. Reahn Lucero Work Phone: [facility] 01-02-2023 22:24-0400 Body height 149.[address] Rehan Lucero Work Phone: [facility] 01-02-2023 22:24-0400 Body mass index (BMI) [Ratio] 24.5 kg/m2 Dr. Rehan Lucero Work Phone: [facility] 01-02-2023 22:24-0400 Body temperature 98.8 [degF] Dr. Rehan Lucero Work Phone: [facility] 01-02-2023 22:24-0400 Body weight [address] Rehan Lucero Work Phone: [facility] 12-18-2022 09:23-0400 Body weight 52.[address] LOUIS PEARCE MD [facility] 12-18-2022 09:23-0400 Diastolic Blood Pressure Non-Invasive [address] LOUIS PEARCE MD [facility] 12-18-2022 09:23-0400 Diastolic Blood Pressure Non-Invasive [address] LOUIS PEARCE MD [facility] 12-18-2022 09:23-0400 Heart rate 75 /min DR LOUIS PEARCE MD [facility] 12-18-2022 09:23-0400 Respiratory rate 16 /min DR LOUIS PEARCE MD [facility] 12-18-2022 09:23-0400 Systolic Blood Pressure Non-Invasive [address] LOUIS PEARCE MD [facility] 12-18-2022 09:23-0400 Systolic Blood Pressure Non-Invasive [address] LOUIS PEARCE MD [facility] 12-18-2022 09:08-0400 Diastolic Blood Pressure Non-Invasive [address] LOUIS PEARCE MD [facility] 12-18-2022 09:08-0400 Heart rate 74 /min DR LOUIS PEARCE MD [facility] 12-18-2022 09:08-0400 Respiratory rate 14 /min DR LOUIS PEARCE MD [facility] 12-18-2022 09:08-0400 Systolic Blood Pressure Non-Invasive [address] LOUIS PEARCE MD [facility] 12-18-2022 08:53-0400 Body temperature 96.8 [degF] DR LOUIS PEARCE MD [facility] 12-18-2022 08:45-0400 Respiratory Rate - Anes 17 br/min DR LOUIS PEARCE MD [facility] 12-18-2022 08:40-0400 Respiratory Rate - Anes 17 br/min DR LOUIS PEARCE MD [facility] 12-18-2022 08:35-0400 Respiratory Rate - Anes 19 br/min DR LOUIS PEARCE MD [facility] 12-18-2022 07:33-0400 Body height 149.[address] LOUIS PEARCE MD [facility] 12-18-2022 07:32-0400 Body temperature 98.42 [degF] DR LOUIS PEARCE MD [facility] 12-18-2022 07:32-0400 Heart rate 63 /min DR LOUIS PEARCE MD [facility] 12-06-2022 13:21-0400 Diastolic blood pressure 78 mm[Hg] Dr. Rehan Lucero Work Phone: [facility] 12-06-2022 13:21-0400 Systolic blood pressure 132 mm[Hg] Dr. Rehan Lucero Work Phone: [facility] 12-06-2022 13:21-0400 Body mass index (BMI) [Ratio] 23.8 kg/m2 Dr. Rehan Lucero Work Phone: [facility] 12-06-2022 13:21-0400 Body weight 53.[address] Rehan Lucero Work Phone: [facility] 12-06-2022 13:21-0400 Heart rate 68 /min Dr. Rehan Lucero Work Phone: [facility] 12-06-2022 13:21-0400 Respiratory rate 18 /min Dr. Rehan Lucero Work Phone: [facility] 12-06-2022 13:21-0400 SaO2% (BldA) [Mass fraction] 97 % Dr. Rehan Lucero Work Phone: [facility] 10-30-2022 07:05-0400 Body height 149.[address] Rehan Lucero Work Phone: [facility] 10-30-2022 07:05-0400 Body weight 54.[address] Rehan Lucero Work Phone: [facility] 10-27-2022 07:20-0400 Body mass index (BMI) [Ratio] 24.3 kg/m2 Dr. Rehan Lucero Work Phone: [facility] 10-24-2022 13:28-0400 Body mass index (BMI) [Ratio] 24.3 kg/m2 Dr. Rehan Lucero Work Phone: [facility] 10-24-2022 13:28-0400 Body weight 54.[address] Rehan Lucero Work Phone: [facility] 10-24-2022 13:28-0400 Diastolic blood pressure 84 mm[Hg] Dr. Rehan Lucero Work Phone: [facility] 10-24-2022 13:28-0400 Heart rate 64 /min Dr. Rehan Lucero Work Phone: [facility] 10-24-2022 13:28-0400 Respiratory rate 16 /min Dr. Rehan Lucero Work Phone: [facility] 10-24-2022 13:28-0400 Systolic blood pressure 155 mm[Hg] Dr. Rehan Lucero Work Phone: [facility] 06-25-2022 08:09-0500 Diastolic Blood Pressure Non-Invasive [address] AGUSTINA MILES DO [facility] 06-25-2022 08:09-0500 Heart rate 71 /min DR AGUSTINA MILES DO [facility] 06-25-2022 08:09-0500 Respiratory rate 16 /min DR AGSUTINA MILES DO [facility] 06-25-2022 08:09-0500 Systolic Blood Pressure Non-Invasive [address] AGUSTINA MILES DO [facility] 06-25-2022 06:12-0500 Diastolic Blood Pressure Non-Invasive [address] BERRIOS NANCYLAURA DO [facility] 06-25-2022 06:12-0500 Heart rate 72 /min DR BERRIOS NANCYLAURA DO [facility] 06-25-2022 06:12-0500 Respiratory rate 16 /min DR BERRIOS NANCYLAURA DO [facility] 06-25-2022 06:12-0500 Systolic Blood Pressure Non-Invasive [address] BERRIOS NANCYLAURA DO [facility] 05-30-2022 21:56-0400 Diastolic blood pressure 90 mm[Hg] MARITZA PAIGE MD [facility] 05-30-2022 21:56-0400 Heart rate 77 /min MARITZA PAIGE MD [facility] 05-30-2022 21:56-0400 Mean blood pressure 119 mm[Hg] MARITZA PAIGE MD [facility] 05-30-2022 21:56-0400 Respiratory rate 20 /min MARITZA PAIGE MD [facility] 05-30-2022 21:56-0400 Systolic blood pressure 177 mm[Hg] MARITZA PAIGE MD [facility] 05-30-2022 18:19-0400 Body height 147.3 cm MARITZA PAIGE MD [facility] 05-30-2022 18:19-0400 Body temperature 98.42 [degF] MARITZA PAIGE MD [facility] 05-30-2022 18:19-0400 Body weight 56.8 kg MARITZA PAIGE MD [facility] 05-30-2022 18:19-0400 Diastolic blood pressure 84 mm[Hg] MARITZA PAIGE MD [facility] 05-30-2022 18:19-0400 Heart rate 80 /min MARITZA PAIGE MD [facility] 05-30-2022 18:19-0400 Respiratory rate 20 /min MARITZA PAIGE MD [facility] 05-30-2022 18:19-0400 Systolic blood pressure 198 mm[Hg] MARITZA PAIGE MD [facility] 04-18-2022 13:08-0400 Body height 149.[address] Rehan Lucero Work Phone: [facility] Work Phone: 04-18-2022 13:08-0400 Body mass index (BMI) [Ratio] 25.4 kg/m2 Dr. Rehan Lucero Work Phone: [facility] Work Phone: 04-18-2022 13:08-0400 Body weight 57.[address] Rehan Lucero Work Phone: [facility] Work Phone: 04-18-2022 13:08-0400 Diastolic blood pressure 75 mm[Hg] Dr. Rehan Lucero Work Phone: [facility] Work Phone: 04-18-2022 13:08-0400 Heart rate 76 /min Dr. Rehan Lucero Work Phone: [facility] Work Phone: 04-18-2022 13:08-0400 Respiratory rate 16 /min Dr. Rehan Lucero Work Phone: [facility] Work Phone: 04-18-2022 13:08-0400 SaO2% (BldA) [Mass fraction] 98 % Dr. Rehan Lucero Work Phone: [facility] Work Phone: 04-18-2022 13:08-0400 Systolic blood pressure 150 mm[Hg] Dr. Rehan Lucero Work Phone: [facility] Work Phone: 10-31-2021 10:12-0400 Diastolic Blood Pressure NBP [address] LOUIS PEARCE MD [facility] 10-31-2021 10:12-0400 Heart rate 69 /min DR LOUIS PEARCE MD [facility] 10-31-2021 10:12-0400 Respiratory rate 16 /min DR LOUIS PEARCE MD [facility] 10-31-2021 10:12-0400 Systolic Blood Pressure NBP [address] LOUIS PEARCE MD [facility] 10-31-2021 10:07-0400 Diastolic Blood Pressure NBP [address] LOUIS PEARCE MD [facility] 10-31-2021 10:07-0400 Heart rate 76 /min DR LOUIS PEARCE MD [facility] 10-31-2021 10:07-0400 Respiratory rate 15 /min DR LOUIS PEARCE MD [facility] 10-31-2021 10:07-0400 Systolic Blood Pressure NBP [address] LOUIS PEARCE MD [facility] 10-31-2021 09:58-0400 Diastolic Blood Pressure NBP [address] LOUIS PEARCE MD [facility] 10-31-2021 09:58-0400 Heart rate 73 /min DR LOUIS PEARCE MD [facility] 10-31-2021 09:58-0400 Respiratory rate 14 /min DR LOUIS PEARCE MD [facility] 10-31-2021 09:58-0400 Systolic Blood Pressure NBP [address] LOUIS PEARCE MD [facility] 10-31-2021 07:49-0400 Body height [address] LOUIS PEARCE MD [facility] 10-31-2021 07:31-0400 Body height [address] LOUIS PEARCE MD [facility] 10-31-2021 07:31-0400 Body temperature 97.16 [degF] DR LOUIS PEARCE MD [facility] 10-31-2021 07:31-0400 Body weight 57.[address] LOUIS PEARCE MD [facility] 10-31-2021 07:31-0400 Heart rate 69 /min DR LOUIS PEARCE MD [facility] 10-18-2021 12:04-0500 Body height 149.[address] Rehan Lucero Work Phone: [facility] Work Phone: 10-18-2021 12:04-0500 Body mass index (BMI) [Ratio] 26.4 kg/m2 Dr. Rehan Lucero Work Phone: [facility] Work Phone: 10-18-2021 12:04-0500 Body weight 59.[address] Rehan Lucero Work Phone: [facility] Work Phone: 10-18-2021 12:04-0500 Diastolic blood pressure 80 mm[Hg] Dr. Rehan Lucero Work Phone: [facility] Work Phone: 10-18-2021 12:04-0500 Heart rate 71 /min Dr. Rehan Lucero Work Phone: [facility] Work Phone: 10-18-2021 12:04-0500 Respiratory rate 18 /min Dr. Rehan Lucero Work Phone: [facility] Work Phone: 10-18-2021 12:04-0500 SaO2% (BldA) [Mass fraction] 95 % Dr. Rehan Lucero Work Phone: [facility] Work Phone: 10-18-2021 12:04-0500 Systolic blood pressure 142 mm[Hg] Dr. Rehan Lucero Work Phone: [facility] Work Phone: 08-09-2021 20:31-0500 Body height 149.9 cm AJ MARTINEZ MD [facility] 08-09-2021 20:31-0500 Body temperature 97.7 [degF] AJ MARTINEZ MD [facility] 08-09-2021 20:31-0500 Diastolic blood pressure 75 mm[Hg] AJ MARTINEZ MD [facility] 08-09-2021 20:31-0500 Heart rate 66 /min AJ MARTINEZ MD [facility] 08-09-2021 20:31-0500 Respiratory rate 16 /min AJ MARTINEZ MD [facility] 08-09-2021 20:31-0500 Systolic blood pressure 164 mm[Hg] AJ MARTINEZ MD [facility] Encounters Encounter Date Encounter Type Care Provider Facility Start: 05-25-2025 End: 05-25-2025 Patient encounter procedure Scottie MARTINEZ -[facility] Work Phone: Start: 05-25-2025 End: 05-25-2025 [facility] Start: 03-19-2025 End: 03-23-2025 ambulatory STEPHANIE ESPITIA DO Facility[place] Start: 03-19-2025 End: 03-23-2025 Outreach Lab STEPHANIE ESPITIA DO [facility] Start: 02-23-2025 End: 02-23-2025 ambulatory STEPHANIE ESPITIA DO Facility:[facility] Start: 02-23-2025 End: 02-23-[address] LOUIS PEARCE MD [facility] Start: 01-19-2025 End: 01-19-2025 ambulatory REHAN LUCERO DO Facility:[facility] Start: 01-19-2025 End: 01-19-2025 SAME DAY STAY REHAN LUCERO DO [facility] Start: 12-01-2024 End: 12-01-[address] Rehan Lucero DO Work Phone: [facility] Work Phone: Start: 12-01-2024 End: 12-01-2024 Departed Referred Jamir Eagle MD [facility] Start: 12-01-2024 End: 12-01-2024 ambulatory Rehan Lucero Facility:[facility] Start: 11-29-2024 Non-patient / Non-visit Dr. Britt Guthrie MD -[facility] Work Phone: Start: 11-28-2024 Non-patient / Non-visit Dr. Britt Guthrie MD -[facility] Work Phone: Start: 11-27-2024 End: 11-29-2024 ambulatory Aguilar Gale Facility:[facility] Start: 11-27-2024 End: 11-29-2024 Evaluation and management of inpatient Dr. Aguilar Gale DO -Medical Surgical 3 Work Phone: Start: 11-27-2024 End: 11-29-[address] Rehan Lucero DO Work Phone: [facility] Work Phone: Start: 11-26-2024 End: 11-26-2024 Patient encounter procedure Renee CODY -[facility] Work Phone: Start: 11-26-2024 End: 11-26-2024 ambulatory Renee CODY Facility:[facility] Start: 10-08-2024 End: 10-08-[address] Rehan Lucero DO Work Phone: [facility] Work Phone: Start: 10-08-2024 End: 10-08-2024 Departed Referred Jamir Eagle MD [facility] Start: 10-08-2024 End: 10-08-2024 ambulatory Rehan Lucero Facility:[facility] Start: 10-06-2024 End: 10-06-2024 Emergency department patient visit Dr. Braydon Nathan DO -Emergency Department Work Phone: Start: 10-05-2024 End: 10-06-2024 Emergency department patient visit Dr. 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 Rehan Lucero Work Phone: [facility] Work Phone: Start: 12-10-2023 End: 12-10-[address] Rehan Lucero Work Phone: [facility]-Laboratory Work Phone: Start: 12-07-2023 End: 12-07-[address] Rehan Lucero Work Phone: [facility] Work Phone: Start: 12-07-2023 End: 12-07-[address] Rehan Lucero Work Phone: [facility] Work Phone: Start: 11-27-2023 End: 11-27-2023 Emergency department patient visit [facility]-Emergency Department Work Phone: Start: 08-21-2023 End: 08-21-2023 ambulatory REHAN CARNEYSAY DO Facility:[facility] Start: 08-21-2023 End: 08-21-2023 Patient encounter procedure REHAN NIC DO [facility] Start: 06-12-2023 End: 06-12-2023 ambulatory REHAN HERNANDEZY DO Facility:[facility] Start: 06-12-2023 End: 06-12-2023 SAME DAY STAY REHAN LUCERO DO [facility] Start: 05-14-2023 End: 05-14-2023 ambulatory REHAN LUCERO DO Facility:[facility] Start: 05-14-2023 End: 05-14-2023 Patient encounter procedure REHAN HERNANDEZY DO [facility] Start: 05-09-2023 End: 05-13-2023 ambulatory REHAN NIC DO Facility:[facility] Start: 05-09-2023 End: 05-13-2023 Outreach Lab REBECA MAST PALLET ASSEM[employer]ER[employer] PROJECT COORDINATOR [facility] Start: 03-08-2023 End: 03-08-[address] Rehan Lucero Work Phone: [facility] Work Phone: Start: 03-08-2023 End: 03-08-[address] Rehan Lucero Work Phone: [facility]-Radiology, [place] Work Phone: Start: 01-24-2023 End: 01-24-[address] Rehan Lucero Work Phone: [facility] Work Phone: Start: 01-24-2023 End: 01-24-[address] Rehan Lucero Work Phone: [facility]-Laboratory Start: 01-02-2023 End: 01-03-2023 Emergency department patient visit Dr. Rehan Lucero Work Phone: [facility]-Emergency Department Start: 12-18-2022 End: 12-18-[address] LOUIS PEARCE MD [facility] Start: 12-06-2022 End: 12-06-[address] 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 Rehan Lucero Work Phone: [facility]/Special Procedures Start: 10-30-2022 End: 10-30-[address] Rehan Lucero Work Phone: [facility] Work Phone: Start: 10-24-2022 End: 10-24-[address] Rehan Lucero Work Phone: [facility] Start: 10-17-2022 End: 10-18-2022 Non-patient / Non-visit Dr. Rehan Lucero Work Phone: [facility] Start: 10-11-2022 End: 10-11-[address] Rehan Lucero Work Phone: [facility] Start: 08-30-2022 End: 08-30-[address] Rehan Lucero Work Phone: [facility] Start: 06-28-2022 End: 06-28-2022 Patient encounter procedure SHERIF BERNARDO MD [facility] Start: 06-25-2022 End: 06-25-2022 Emergency department patient visit DR AGUSTINA MILES DO [facility] Start: 06-21-2022 End: 06-21-2022 Patient encounter procedure REHAN LUCERO DO [facility] Start: 05-30-2022 End: 05-30-2022 Emergency department patient visit MARITZA PAIGE MD [facility] Start: 05-30-2022 End: 05-30-[address] DIANA VALERA DO [facility] Start: 05-03-2022 Non-patient / Non-visit Dr. Rachel Lucero Work Phone: [facility] Start: 05-03-2022 End: 05-03-[address] Rehan Lucero Work Phone: [facility] Work Phone: Start: 05-03-2022 End: 05-03-[address] Rehan Lucero Work Phone: [facility]-Cardiovascular Services Start: 04-18-2022 End: 04-18-[address] Rehan Lucero Work Phone: [facility] Start: 04-12-2022 End: 04-12-[address] Rehan Lucero Work Phone: [facility] Work Phone: Start: 04-12-2022 End: 04-12-[address] Rehan Lucero Work Phone: [facility] Start: 02-24-2022 End: 02-24-2022 Patient encounter procedure REHAN LUCERO DO [facility] Start: 02-15-2022 End: 02-15-[address] DIANA VALERA DO [facility] Start: 12-30-2021 End: 12-30-[address] Rehan Lucero Work Phone: [facility] Start: 12-08-2021 End: 12-08-[address] Rehan Lucero Work Phone: [address] Start: 11-15-2021 End: 11-15-[address] Rehan Lucero Work Phone: [facility] Start: 10-31-2021 End: 10-31-[address] LOUIS PEARCE MD [facility] Start: 10-18-2021 End: 10-18-[address] Rehan Lucero Work Phone: [facility] Start: 09-22-2021 End: 09-22-[address] Rehan Lucero Work Phone: [facility] Start: 09-21-2021 End: 09-21-2021 Patient encounter procedure REHAN LUCERO DO [facility] Start: 09-02-2021 End: 09-02-[address] DAWN DO [facility] Start: 08-30-2021 End: 08-30-[address] DAWN DO [facility] Start: 08-26-2021 End: 08-26-[address] DAWN DO [facility] Start: 08-10-2021 End: 08-10-2021 Patient encounter procedure AJ MARTINEZ MD [facility] Start: 08-09-2021 End: 08-10-2021 Emergency department patient visit AJ MARTINEZ MD [facility] Start: 07-11-2021 End: 07-11-2021 Patient encounter procedure REHAN LUCERO DO [facility] Start: 06-21-2021 End: 06-21-2021 Patient encounter procedure REHAN LUCERO DO [facility] Procedures Date Procedure Procedure Detail [...] Activity Detail Author Start: 11-29-2024 Patient discharge [facility] Start: 11-28-2024 Application of device [facility] Start: 11-27-2024 Following clinical pathway protocol [facility] Start: 11-27-2024 Ambulation without limitation [facility] Start: 11-27-2024 Assessment of risk of venous thromboembolism [facility] Start: 11-27-2024 Incentive spirometry [facility] Start: 11-27-2024 Insertion of catheter into peripheral vein [facility] Start: 11-27-2024 Oxygen therapy [facility] Start: 11-27-2024 Providing care according to standard [facility] Start: 11-27-2024 Referral to occupational therapist [facility] Start: 11-27-2024 Referral to service [facility] Start: 11-27-2024 [facility] Start: 11-27-2024 Verification routine [facility] Start: 11-27-2024 Admission procedure [facility] Start: 11-27-2024 Hospital admission, emergency, from emergency room, medical nature [facility] Start: 10-06-2024 [facility] Start: 10-05-2024 [facility] Start: 11-27-2023 [facility] Start: 01-02-2023 [facility] Start: 04-12-2022 Protein measurement [facility] Work Phone: Start: 12-27-2016 End: 12-27-2016 Physical Therapy General Physical Therapy [facility], [address] [place] [address], [id number] [facility] Work Phone: Start: 12-25-2016 End: 12-25-2016 X-Ray, Hip, unilateral, with pelvis; 2-3 views X-Ray, Hip, unilateral, with pelvis; 2-3 views [facility] Work Phone: Fat [Mass/mass] in Stool [facility] Work Phone: Fat.neutral [Presenc e] in Stool [facility] Work Phone: Patient Education [facility] Work Phone: Patient referral [facility] Work Phone: Protein measurement [facility] Work Phone: Replacement of elect ronHerotainment heart device, pulse generator [facility] Work Phone: Immunizations Immunization Date Immunization Notes Care Provider Anh moy 04-01-2019 tetanus toxoid, redu gordy diphtheria toxoid, and acellular pertussis vaccine, adsorbed; Translations: [Boostrix (Tdap)] REHAN LUCERO DO [facility] 05-31-2012 influenza, seasonal, injectable, preservative free REHAN LUCERO DO [facility] 05-01-2012 pneumococcal polysaccharide vaccine, 23 valent REHAN LUCERO DO [facility] Payers Date Payer Category Payer Private Health Insurance [id number] [id number] Self-pay [id number] 2019 Medicare [id number] 2015 Private Health Insurance [id number] 2001 Medicare [id number] 1936 Unknown [id number] 2.16.8 40.1.203943.3.579.2. 1936 Unknown [id number] 2.16.8 40.1.288690.3.579.2. 1936 Unknown [id number] 2.16.8 40.1.351213.3.579.2. 1936 Unknown [id number] 2.16.8 40.1.340574.3.579.2.627 1936 Unknown [id number] 2.16.8 40.1.771387.3.579.2. 1936 Unknown [id number] 2.16.8 40.1.528516.3.579.2.7 1936 Unknown [id number] 2.16. 840.1.374862.3.579.2. 1936 Unknown [id number] 2.16. 840.1.274257.3.579.2.627 1936 Unknown [id number] 2.16. 840.1.373962.3.579.2.627 1936 Unknown [id number] 2.16.8 40.1.697281.3.579.2.627 1936 Unknown [id number] 2.16.8 40.1.978754.3.579.2.627 Unknown [id number] 2.16.8 40.1.000006.3.579.2.462 Unknown [id number] 2.16.8 40.1.179335.3.579.2.462 Unknown [id number] 2.16.8 40.1.711061.3.579.2.462 Unknown [id number] 2.16.8 40.1.733645.3.579.2.462 Unknown [id number] 2.16.8 40.1.855409.3.579.2.462 Unknown [id number] 2.16.8 40.1.511359.3.579.2.462 Unknown [id number] 2.16.8 40.1.771875.3.579.2.462 Unknown [id number] 2.16.8 40.1.571282.3.579.2.462 Unknown [id number] 2.16.8 40.1.113151.3.579.2.462 Unknown [id number] 2.16.8 [id number] Social History Date Type Detail Facility Start: 04-09-2019 End: 11-27-2024 Never smoked tobacco (finding) [facility] Start: 1935 Sex Assigned At Female A [facility] Start: 10-18-2021 End: 11-27-2023 Tobacco smoking status TXIS Unknown if ever smoked [facility] Start: 02-05-2019 End: 11-13-2024 Sex Female (finding) [facility] Sexual Orientation [facility] [place] Sex Female [facility] Medical Equipment Procedure Code Equipment Code [...] Assessment Result Facility 11-29-2024 Functional status Ambulates [facility] Work Phone: 02-04-2024 Functional Status Maintained [facility] 12-18-2022 Functional Status Ambulating in [place], Ambulating in room, Awake [facility] 12-18-2022 Functional Status Maintained [facility] 06-25-2022 Functional Status Assistive Device None A [facility] 06-25-2022 Functional Status Standard Safet y ID band on, Allergy Band on, Call device within reach, Bed in low position, Wheels locked, Upper/Half-Length side-rails up, Bedside Cart Locked, Visitor at bedside [facility] 05-30-2022 Functional Status Standard Safet y ID band on, Call device within reach, Bed in low position, Wheels locked [facility] 05-30-2022 Functional Status [facility] Mental Status Date Assessment Result Facility 11-29-2024 Cognitive function Appropriate;Cooperativ e [facility] Work Phone: 11-27-2024 Cognitive function Level Of Cons ciousness Awake;Alert;Appropriate [facility] Work Phone: 10-06-2024 Cognitive function Level Of Cons ciousness Awake;Alert;Appropriate;Follow s Commands [facility] Work Phone: 02-04-2024 Mental Status Orientation Oriented x 4 [facility] 06-12-2023 Mental Status Orientation Oriented x 4 [facility] 01-02-2023 Cognitive function Awake;Alert;Appropriat e [facility] Work Phone: 12-18-2022 Mental Status Oriented x 4 [facility] 06-25-2022 Mental Status Orientation Oriented x 4 [facility] 06-25-2022 Mental Status [facility] 05-30-2022 Mental Status Orientation Oriented x 4 [facility] 05-30-2022 Mental Status [facility] Clinical Notes 05-31-2012 to 05-25-2025 Note Date & Type Note Facility 05-25-2025 Progress note [facility] 05-25-2025 Progress note Note Date/Time May 25, 2025 3:23pm [facility] [address] [place] [address] OFFICE VISIT Date of Service: 05/25/25 MR#: [id number] Acct: [id number] Name: RADHA MAYERS Rep #: [id number] : 1935 Provider: MICHELLE Kim Age/Sex: 89/F Location: [facility] Status: Signed HPI HPI History of Present [...] kidney disease. 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 Is patient in pain?: No [...] denosumab 60 mg/mL subcutaneous 60 mg subcut X2HPRBAH oa 11/26/24 05/25/25 History syringe (Prolia) ibuprofen [...] (Reviewed 05/25/25 @ 15:08 by Scottie Kim PRODUCTION MACHINE TENDER, PRODUCTION MACHINE TENDER-C) Immobility Closed fracture of left clavicle Fall [...] (DVT) (04/2012) Atherosclerosis of coronary artery of [place] heart without angina pectoris Essential (primary) hypertension Hyperlipidemia Surgical History (Reviewed 05/25/25 @ 15:08 by Scottie Kim PRODUCTION MACHINE TENDER, PRODUCTION MACHINE TENDER-C) History of loop recorder (05/05/19) History of thoracentesis History of appendectomy History of cataract surgery History of total knee arthroplasty History of bowel resection Hx of cholecystectomy History of left heart catheterization (03/23/17) History of hysterectomy History of spinal surgery History of hemiarthroplasty of left hip History of coronary artery stent placement (05/31/12) Family History (Reviewed 05/25/25 @ 15:08 by Scottie Kim PRODUCTION MACHINE TENDER, PRODUCTION MACHINE TENDER-C) Father Heart disease CAD (coronary artery disease) [...] a regular rhythm on exam today. Her KLT3VX9-PVEk score is 5. With her recent history [...] factor and lifestyle modifications. A copy of [facility] recent lipid panel would be greatly appreciated [...] as necessary. Follow Up: Keep as is (PACKING ROOM SUPERVISOR) Coding Level of Care Code Off vis,est,level [...] Scottie GUSMANC> Date _ Scottie Kim NP PRODUCTION MACHINE TENDER-C Cosigner Signature: Date (if applicable) CC: Dr. Rehan Lucero, DO ~ [employer] Work Phone: 1(910) 560-353407-14-2025 Hospital Discharge instructions Patient Education 02/23/2025 12:10:47 [...] before eating solid foods. General instructions Take hyfg-wiz-hwqjhky and prescription medicines only as told by [...] 11/19/2016 Document Revised: 10/28/2018 Document Reviewed: 11/19/2016 [employer] Patient Education 2020 [employer]. 02/23/2025 12:10:45 Esophagogastroduodenoscopy, Care After (24251) Esophagogastroduodenoscopy, Care After Refer to this sheet [...] 07/16/2013 Document Revised: 01/04/2017 Document Reviewed: 06/22/2016 [employer] Interactive Patient Education 2019 [employer]. Follow Up Care 02/19/2025 08:02:15 With:LOUIS PEARCE Address: [address] [place] [phone] Business (1) When: Unknown [facility] 07-14-2025 Evaluation + Plan noteExtracted from: Title:Clinical Document Author:LOUIS PEARCE Date:02/23/25 [facility] ADMISSION HISTORY AN D PHYSICIAL CHIEF COMPLAINT: HISTORY OF PRESENT ILLNESS: REVIEW OF SYSTEMS: ACTIVE PROBLEMS: (39) Abnormal x-ray of forearm (668973969) Anxiety (66587932) Balance problems (8605417509) Bradycardia (35457657) CAD (coronary artery disease) (91168755) Carpal tunnel syndrome, left (62926560) Chronic back pain (679625532) Chronic diastolic heart failure (7922870087) Chronic nausea (0665091379) Chronic systolic heart failure (7578641626) Depression (761608819) Dizziness (0796092238) Dysphagia (56679111) Eosinophilic esophagitis (965082242) Fibromyalgia (91676494) Fracture of left clavicle (87340242) GERD (gastroesophageal reflux disease) (0857424057) Hiatal hernia (117165420) History of compression fracture of vertebral column (0503293115) HTN (hypertension) (9125595043) Hx of fall in Mar with R pelvic hairline fx, R wrist fx and R clavicle fx with surgery Hyperlipidemia (552969685) Hypothyroidism (27215573) Irregular heart beat (097532753) Irritable bowel syndrome with diarrhea (486710202) Large hiatal hernia (795936504) Left foot pain (348135796) Left hip pain (56539882) Left patella fracture (79870026) Lightheadedness (2299040819) Neck pain (014183347) Osteoporosis (471486113) Peripheral edema (198322498) Personal history of COVID-19 (0710050397) RA (rheumatoid arthritis) (630825669) Restless leg syndrome (31261155) Screening for colon cancer (123362536) Stage 3b chronic kidney disease (CKD) (7946021605) Syncope (408946594) MEDICATIONS: Active Inpt Meds: onabotulinumtoxinA (Botox) Start: [...] FAMILY HISTORY: SOCIAL HISTORY: PHYSICAL EXAM: VITALS: PdnpsyRnvdVKPzawuLXVwC8MFA7VwjdVr(kg) 02/23 11:1336.5--507551AO82/14 49.1 24 Hr Tmax: 36.5 at 02/23 [...] Date:03/19/2025 12:40:00 PM Scheduled Provider:STEPHANIE ESPITIA DO Location:[facility] Appointment Type:PC OV Future Scheduled Tests Laboratory* Thyroid Stimulating Hormone 07/29/24 * Lipid Profile 07/29/24 * Albumin/Creatinine Ratio, Random Urine 07/29/24 * Complete Metabolic Panel 07/29/24 [facility] 07-14-2025 Note Discharge Instructions Thank you for allowing [facility] to assist you with your healthcare needs. The following is importantdischarge information regarding your hospital visit. Your Care Team STEPHANIE ESPITIA DO, Dr. What to do next Scheduled Follow-Up Appointments Appointment Type When With Where Contact Information Status OV 03/19/2025 12:40 PM EDT STEPHANIE ESPITIA DO [address] [phone] Confirmed Follow Up Appointments Follow Up with LOUIS PEARCE Where:[address] [phone] [facility] (1) The Following Activity and Diet Have [...] before eating solid foods. General instructions Take upis-pgs-iqetwpp and prescription medicines only as told by [...] 11/19/2016 Document Revised: 10/28/2018 Document Reviewed: 11/19/2016 [employer] Patient Education 2020 [place]. Esophagogastroduodenoscopy, Care After Refer to this sheet [...] 07/16/2013 Document Revised: 01/04/2017 Document Reviewed: 06/22/2016 [employer] Interactive Patient Education 2019 [employer]. Additional Information VACCINATE! IT SAVES LIVES! Members of the community who have not yet received the COVID-19 vaccine and would like to receive it can visit one of [facility] vaccine clinics. There are many vaccine clinic locations within the [facility]. For locations and available times, please visit [email or web address] It is important to note that some COVID mobile vaccine clinics are held outdoors and may be canceled in rainy or stormy conditions. To learn more about pediatric vaccinations (ages 5-11), we invite you to visit the [facility] webpage. [email or web address] learn more about the COVID-19 vaccine, we invite you to visit the CDC website for a list of frequently asked questions.https://www.cdc.gov/coronavirus/2019-ncov/vaccines/faq.html [employer] Patient Portal Access Instructions: Stay connected with your healthcare team and access your personal medical information anytime with the [employer] Patient Portal. Please follow the directions below to create your Hookflash account: 1.Access the email account you provided upon registration to the hospital/physician office.2.Look for an invitation email from [facility].3.Open the email and access the invitation link: AcceptInvitation to Hookflash.4.Fill in the required [place] to create your account. To access your account, visit [employer]/[email or web address]. Click the blue button labeled Access Patient [...] who you will allowto register on the Hookflash Patient Portal for access to your information. You can also access the [employer] Patient Portal on the Criptextwhere cherelle. Simply click on Patient Portal and then log into your account. If you would like to receive a full copy of your medical records, please contact the [facility] Medical Records Department by calling [phone], Sunday through Sunday between 8 a.m. and [...] Call your local pharmacy or go to [email or web address] to find one close to you.3.Make use of household items: Use cat litter or old coffee grounds to dispose medications if other options arenot available. Mix your drugs with these household products, seal them in an airtight container andthrow it into the garbage. Call [facility]: [phone] to be sure your drugs can be [...] Anesthesia Care, Care After Esophagogastroduodenoscopy, Care After (70230) Medication Leaflets My discharge plan and instructions have been reviewed and explained to me and I,RADHA MAYERS understand my current condition and have read and understand these discharge instructions. I have received a written copy of the plan/instructions. If I have questions, I am aware that I should contact my doctor. Patient/Staff Counselor Signature: Date/Time: Relationship to Patient: Witness Name/Signature: Date/Time: [facility]07-14-2025 Note Date of Service 02/23/2025 Procedure Name EGD with Botox injection Consent Taken before procedure Indication Patient with esophageal spasm and dysphagia Location [facility] Pre-Procedure Exam Esophageal spasm and dysphagia [...] after the Botox injection Digitally Signed by LOUSI PEARCE MD on 02/23/2025 12:25 PM [facility]07-14-2025 Anesthesiology Consult note Patient: RADHA MAYERS Age: 89 years Sex: Female : 1935 Associated Diagnoses: None Author: GERRY BOSCH PALLET ASSEMBLER-SEWER PIPE OFFBEARER Assessment Postanesthesia assessment Vitals: Vital signs from [...] by GERRY BOSCH on 02/23/2025 12:20 PM [facility]07-14-2025 Note [facility] ADMISSION HISTORY AND PHYSICIAL CHIEF COMPLAINT: HISTORY OF PRESENT ILLNESS: REVIEW OF SYSTEMS: ACTIVE PROBLEMS: (39) Abnormal x-ray of forearm (663738554) Anxiety (81561198) Balance problems (3212069955) Bradycardia (06675010) CAD (coronary artery disease) (38674802) Carpal tunnel syndrome, left (83130633) Chronic back pain (805735863) Chronic diastolic heart failure (5814992382) Chronic nausea (4191427793) Chronic systolic heart failure (5543473828) Depression (700995141) Dizziness (1815434912) Dysphagia (16675074) Eosinophilic esophagitis (591605139) Fibromyalgia (47984438) Fracture of left clavicle (50098698) GERD (gastroesophageal reflux disease) (2025337781) Hiatal hernia (127275775) History of compression fracture of vertebral column (6127907312) HTN (hypertension) (2723402623) Hx of fall in Mar with R pelvic hairline fx, R wrist fx and R clavicle fx with surgery Hyperlipidemia (091158773) Hypothyroidism (12042510) Irregular heart beat (098289457) Irritable bowel syndrome with diarrhea (168880560) Large hiatal hernia (484461764) Left foot pain (901818141) Left hip pain (55515528) Left patella fracture (82537935) Lightheadedness (2233455557) Neck pain (970907860) Osteoporosis (809223050) Peripheral edema (087288264) Personal history of COVID-19 (7665546491) RA (rheumatoid arthritis) (750639440) Restless leg syndrome (50723485) Screening for colon cancer (898672808) Stage 3b chronic kidney disease (CKD) (0153395298) Syncope (212798738) MEDICATIONS: Active Inpt Meds: onabotulinumtoxinA (Botox) Start: [...] FAMILY HISTORY: SOCIAL HISTORY: PHYSICAL EXAM: VITALS: JsxjlvAdkuKCJvsylHNXdW7ABR0UgclMa(kg) 02/23 11:1336.5--442054XZ21/14 49.1 24 Hr Tmax: 36.5 at 02/23 [...] LOUIS PEARCE MD on 02/23/2025 12:00 PM [facility]07-14-2025 Anesthesiology Consult note Patient: RADHA MAYERS Age: 89 years Sex: Female : 1935 Associated Diagnoses: None Author: GERRY BOSCH PALLET ASSEMBLER-SEWER PIPE OFFBEARER Preoperative Information Time of last food or [...] Problem list: Medical Anxiety / SNOMED CT 61175424 / Confirmed Bradycardia / SNOMED CT 86121422 / Confirmed Carpal tunnel syndrome, left / SNOMED CT 70711436 / Confirmed Chronic diastolic heart failure / SNOMED CT 2716409161 / Confirmed Stage 3b chronic kidney disease (CKD) / SNOMED CT 8758385612 / Confirmed Chronic back pain / SNOMED CT 351174149 / Confirmed Chronic systolic heart failure / SNOMED CT 2050054796 / Confirmed CAD (coronary artery disease) / SNOMED CT 03141347 / Confirmed Dizziness / SNOMED CT 5330199929 / Confirmed Dysphagia / SNOMED CT 42939937 / Confirmed Eosinophilic esophagitis / SNOMED CT 254591285 / Confirmed Fibromyalgia / SNOMED CT 98899348 / Confirmed Left foot pain / SNOMED CT 405284842 / Confirmed Fracture of left clavicle / SNOMED CT 44753648 / Confirmed Left patella fracture / SNOMED CT 41915509 / Confirmed GERD (gastroesophageal reflux disease) / SNOMED CT 8836538306 / Confirmed History of compression fracture of vertebral column / SNOMED CT 3671189199 / Confirmed Large hiatal hernia / SNOMED CT 180237861 / Confirmed Hiatal hernia / SNOMED CT 002215391 / Confirmed Left hip pain / SNOMED CT 86849721 / Confirmed Personal history of COVID-19 / SNOMED CT 5299836952 / Confirmed Hyperlipidemia / SNOMED CT 793776945 / Confirmed HTN (hypertension) / SNOMED CT 4336074357 / Confirmed Hypothyroidism / SNOMED CT 21803302 / Confirmed Balance problems / SNOMED CT 9520641784 / Confirmed Irregular heart beat / SNOMED CT 300052569 / Confirmed Irritable bowel syndrome with diarrhea / SNOMED CT 800316791 / Confirmed Lightheadedness / SNOMED CT 6251825908 / Confirmed Chronic nausea / SNOMED CT 2332972639 / Confirmed Neck pain / SNOMED CT 861538237 / Confirmed Osteoporosis / SNOMED CT 333401152 / Confirmed Screening for colon cancer / SNOMED CT 199453576 / Confirmed Peripheral edema / SNOMED CT 783039192 / Confirmed Abnormal x-ray of forearm / SNOMED CT 307520539 / Confirmed Depression / SNOMED CT 907920031 / Confirmed Restless leg syndrome / SNOMED CT 00992149 / Confirmed RA (rheumatoid arthritis) / SNOMED CT 256621409 / Confirmed Syncope / SNOMED CT 554129378 / Confirmed Resolved: Cardiac catheterization, left heart / SNOMED CT 210474659 Resolved: Cellulitis of left lower extremity / SNOMED CT 5533557256 Resolved: COVID-19 virus infection / SNOMED CT 0319651730 Resolved: DVT (deep venous thrombosis) / SNOMED CT 789418126 Resolved: SOB (shortness of breath) / SNOMED CT 204314079 Resolved: Epigastric pain / SNOMED CT 212740511 Resolved: Hyperkalemia / SNOMED CT 66928366 Resolved: Arm laceration / SNOMED CT 165819970 Resolved: Pleural effusion / SNOMED CT 15330489 Canceled: Acute bronchitis / SNOMED CT 98736182 Canceled: Acute bacterial rhinosinusitis / SNOMED CT 0475614607 Canceled: Left leg cellulitis / SNOMED CT 7394278197 Canceled: Chronic kidney disease / SNOMED CT 3355857414 Canceled: CHF (congestive heart failure) / SNOMED CT 85011060 Canceled: Contusion of right elbow / SNOMED CT 257757711 Canceled: Contusion of left elbow / SNOMED CT 218352047 Canceled: Contusion of rib on right side / SNOMED CT 9987035255 Canceled: Depressive disorder / SNOMED CT 12580885 Canceled: Diarrhea / SNOMED CT 786181124 Canceled: Shortness of breath / SNOMED CT 404543792 Canceled: Fall at home / SNOMED CT 92943665 Canceled: Fatigue / SNOMED CT 159904905 Canceled: Fibromyalgia / SNOMED CT 05553529 Canceled: Nondisplaced fracture of left patella / SNOMED CT 13781316 Canceled: Right rib fracture / SNOMED CT 40778288 Canceled: Acute kidney injury / SNOMED CT 73378607 Canceled: Insomnia due to stress / SNOMED CT 564868025 Canceled: Insomnia / SNOMED CT 259979124 Canceled: IBS (irritable bowel syndrome) / SNOMED CT 73817107 Canceled: Nausea in adult / SNOMED CT 8616414640 Canceled: Depression / SNOMED CT 489197224 Canceled: Scalp laceration / SNOMED CT 190401701 Canceled: Bilateral serous otitis media / SNOMED CT 452410200 Canceled: Strain of sternocleidomastoid muscle / SNOMED CT 359618189, Active Problems (39) Abnormal x-ray of forearm [...] Syncope Histories Past Medical History: Active Syncope (917634089) Chronic back pain (310163946) Resolved Cardiac catheterization, left heart (433836314): Onset on 02/07/2013 at 77 years. Resolved. SOB (shortness of breath) (815124698): Resolved. DVT (deep venous thrombosis) (805863330): Resolved. Pleural effusion (07911648): Resolved. Arm laceration (784538883): Resolved. COVID-19 virus infection (6310060495): Resolved. Cellulitis of left lower extremity (9646854858): Resolved. Hyperkalemia (89260472): Resolved. Epigastric pain (591250728): Resolved. Family History: Hypertension Mother Father Heart disease Mother Father Blood disorder Father Stroke Mother Diabetes Mother Procedure history: History of left hip replacement (899342607146298) on 02/07/2018 at 82 Years. Cholecystectomy (41559086). Cardiac catheterization (45197626). Angioplasty of artery (671623422). Knee replacement (114421533). Appendectomy (606767708). Hysterectomy (352075491). Cataract extraction (51650905). Tonsillectomy (491297787). Kyphoplasty of fracture of cervical spine using computed tomography (CT) guidance (5613800447). Social History: Social & Psychosocial Habits Alcohol [...] Lab results 02/23/2025 10:50 EDT SN - KS - Medication botulinum toxin type A 100 units SN - KS - Route of Administration Local SN - [place] - By (Single) SN - [place] - By (Single) 02/23/2025 10:49 EDT SN [...] Attendee SN - CAt - Role Performed Beater Engineer SN - CAt - Role Performed Procedure Nurse SN - CAt - Role Performed SEWER PIPE OFFBEARER SN - CAt - Role Performed Primary Surgeon . Assessment and Plan [place] [employer] Anesthesiologists (ASA) physical status classification: Class III. Anesthetic Preoperative Plan Premedication: intravenous. Anesthetic technique: MAC. Induction: intravenously. Maintenance airway: Mask. Risks discussed: nausea, vomiting, headache, sore throat, dental injury, hypotension, allergic reaction, serious complications. Informed consent: signed by patient. Digitally Signed by GERRY BOSCH on 02/23/2025 10:50 AM Digitally Signed by GERRY BOSCHSEWER PIPE OFFBEARER on 02/23/2025 11:53 AM [facility]06-09-2025 Nurse Progress note patient tolerated prolia injection without signs or symptoms of a reaction Digitally Signed by Juli Clifford RN on 01/19/2025 02:16 PM [facility]04-19-2025 [facility] Medical Records Department [address] [place] [address] Discharge Summary 11/29/24 1101 MR#: [id number] Acct: [id number] Name: RADHA MAYERS Rep #: [id number] : 1935 89 From: Britt Guthrie MD PCP: Dr. Rehan Lucero, Status:DIS SUZIE Location: [place] [address] Providers Date of Admission: 11/27/24 Date of [...] mg/mL subcutaneous syringe (Prolia) 60 mg subcut [id number] oa 11/26/24 ibuprofen 400 mg tablet 400 [...] Tylenol for pain. Patient was discharged to [facility] on 11/29/2024. She is follow-up with her [...] HEENT normocephalic, head/scalp atraumatic (more content not included)...[facility]04-19-2025 Discharge summary [facility] Medical Records Department [address] [place] [address] Transfer to [facility] MR#: [id number] Acct: [id number] Name: RADHA MAYERS Rep #:[id number] : 1935 89 From: Britt Guthrie MD PCP: Dr. Rehan Lucero, DO Status:ADM SUZIE Certification of patient admission REQUIRED AT TIME OF ADMISSION. I CERTIFY THAT POST-HOSPITAL F SERVICES ARE REQUIRED TO BE GIVEN ON AN IN-PATIENT BASIS BECAUSE OF THE ABOVE NAMED PATIENT'S NEED FOR SENIOR CARE CARE ON A CONTINUING BASIS FOR THE CONDITION(S) FOR WHICH HE/SHE WAS RECEIVING IN-PATIENT HOSPITAL SERVICES PRIOR TO HIS/HER TRANSFER TO THE [facility]. 11/29/24 0748 Diet Diet Order/Speech Therapy: 11/27/24 [...] Prolia 60 mg/mL syringe 60 mg subcut [id number] pantoprazole 40 mg tablet,delayed release (DR/EC) 40 [...] in before D/C Order can be placed): Jail Facility 11/29/24 0748 Cosigner Signature (if applicable): CC: Dr. Aguilar Gale DO; Dr. Rehan Lucero DO ~ [facility]04-18-2025 Progress [facility] Note Date/Time November 28, 2024 3:4 7pm [facility] Medical Records Department [address] [place] [address] Progress Note 11/28/24 1317 MR#: [id number] Acct: [id number] Name: RADHA MAYERS Rep #:[id number] : 1935 89 From: Britt Guthrie MD PCP: Dr. Rehan Lucero DO Status:ADM SUZIE Location: [place] [id number] Subjective Subjective Patient seen and examined. She [...] Neut % (Auto) 59.3, Lymph % (Auto) 23.8,Dickenson % (Auto) 12.2 H, Eos % (Auto) [...] of the distal left clavicle. Reading Location: [facility] Thoracic Spine CT 11/27/24 18:54 IMPRESSION: No acute fracture or subluxation. Extensive compression fracture deformity of the thoracic spine as described above. Large hiatal hernia with circumferential wall thickening of the distal esophagus. Esophagram may be helpful for further characterization. Patchy bibasilar pulmonary infiltrates. Reading Location: [facility] Brain CT 11/27/24 19:16 IMPRESSION: NO ACUTE INTRACRANIAL HEMORRHAGE Reading Location: [facility] Knee X-Ray 11/27/24 19:16 IMPRESSION: No change in healing fracture of the patella. No new fracture. Moderate arthrosis. Reading Location: [facility] Lumbar Spine CT 11/27/24 19:25 IMPRESSION: No acute fracture or subluxation. Multiple chronic compression fractures with vertebroplasty at L1. Degenerative disc disease as described above. Reading Location: [facility] Cervical Spine CT 11/27/24 19:30 IMPRESSION: No acute fracture. Slight anterolisthesis of C4 on C5. Reading Location: [facility] Clavicle X-Ray 11/27/24 20:01 IMPRESSION: Acute comminuted inferiorly displaced fracture of the distal left clavicle. Reading Location: [facility] Physical Exam Const alert and oriented x3 [...] On board. Charges/Coding Visit Charges Inpatient E&M: 01380 Subs Hosp L2 11/28/24 1547 <Electronically signed by Britt Guthrie MD> Britt Guthrie MD Cosigner Signature (if applicable): CC: ~ Signed [facility] Work Phone: 1(594) 356-157304-18-2025 Progress note [facility] Medical Records Department [address] [place] [address] Progress Note 11/28/24 1317 MR#: [id number] Acct: [id number] Name: RADHA MAYERS Rep #:[id number] : 1935 89 From: Britt Guthrie MD PCP: Dr. Rehan Lucero, DO Status:ADM SUZIE Location: [place] [address] Subjective Subjective Patient seen and examined. She [...] Neut % (Auto) 59.3, Lymph % (Auto) 23.8,Dickenson % (Auto) 12.2 H, Eos % (Auto) [...] of the distal left clavicle. Reading Location: [facility] Thoracic Spine CT 11/27/24 18:54 IMPRESSION: No acute fracture or subluxation. Extensive compression fracture deformity of the thoracic spine as described above. Large hiatal hernia with circumferential wall thickening of the distal esophagus. Esophagram may behelpful for further characterization. Patchy bibasilar pulmonary infiltrates. Reading Location: [facility] Brain CT 11/27/24 19:16 IMPRESSION: NO ACUTE INTRACRANIAL HEMORRHAGE Reading Location: [facility] Knee X-Ray 11/27/24 19:16 IMPRESSION: No change in healing fracture of the patella. No new fracture. Moderate arthrosis. Reading Location: [facility] Lumbar Spine CT 11/27/24 19:25 IMPRESSION: No acute fracture or subluxation. Multiple chronic compression fractures with vertebroplasty at L1. Degenerative disc disease as described above. Reading Location: [facility] Cervical Spine CT 11/27/24 19:30 IMPRESSION: No acute fracture. Slight anterolisthesis of C4 on C5. Reading Location[facility] Clavicle X-Ray 11/27/24 20:01 IMPRESSION: Acute comminuted inferiorly displaced fracture of the distal left clavicle. Reading Location: [id number] Physical Exam Const alert and oriented x3 [...] On board. Charges/Coding Visit Charges Inpatient E&M: 86053 Subs Hosp L2 11/28/24 3208 Britt Guthrie MD Cosign Signature (if applicable): CC: ~ Signed [facility]04-18-2025 History and physical note Author Aguilar Gale [facility] Note Date/Time November 28, 2024 3:5 3am [facility] Medical Records Department [address] [place] [address] H&P Exam - Hospitalist 11/27/242134 MR#: [id number] Acct: [id number] Name: RADHA MAYERS Rep #:[id number] : 1935 89 From: Aguilar kaba DO PCP: Dr. Rehan Lucero, DO Status:ADM SUZIE Location: [place] 287920-1 HPI - General General Date of Admission: 11/27/24 Date of Service: 11/27/24 Chief Complaint: Fall with left shoulder pain HPI Narrative RADHA MAYERS, is a 89 F who presented to [facility] ED on 11/27/24 with left shoulder [...] denies any acute concerns at this time. [facility] Medical History (Updated 11/27/24 @ 21:48 by [...] (DVT) (04/2012) Atherosclerosis of coronary artery of [place] heart without angina pectoris Essential (primary) hypertension [...] denosumab 60 mg/mL subcutaneous 60 mg subcut [id number] oa 11/26/24 Unknown History syringe (Prolia) ibuprofen [...] Neut % (Auto) 59.3, Lymph % (Auto) 23.8,Dickenson % (Auto) 12.2 H, Eos % (Auto) [...] of the distal left clavicle. Reading Location: [facility] Thoracic Spine CT 11/27/24 18:54 IMPRESSION: No acute fracture or subluxation. Extensive compression fracture deformity of the thoracic spine as described above. Large hiatal hernia with circumferential wall thickening of the distal esophagus. Esophagram may be helpful for further characterization. Patchy bibasilar pulmonary infiltrates. Reading Location: [facility] Brain CT 11/27/24 19:16 IMPRESSION: NO ACUTE INTRACRANIAL HEMORRHAGE Reading Location: [facility] Knee X-Ray 11/27/24 19:16 IMPRESSION: No change in healing fracture of the patella. No new fracture. Moderate arthrosis. Reading Location: [facility] Lumbar Spine CT 11/27/24 19:25 IMPRESSION: No acute fracture or subluxation. Multiple chronic compression fractures with vertebroplasty at L1. Degenerative disc disease as described above. Reading Location: [facility] Cervical Spine CT 11/27/24 19:30 IMPRESSION: No acute fracture. Slight anterolisthesis of C4 on C5. Reading Location: [facility] Clavicle X-Ray 11/27/24 20:01 IMPRESSION: Acute comminuted inferiorly displaced fracture of the distal left clavicle. Reading Location: [id number] Assessment & Plan Assessment/Plan (1) Fall: (2) Closed fracture of left clavicle: (3) Immobility: PLAN: Plan Patient is an 89-year-old female who presented [facility] ED on 11/27/24 with left shoulder pain and debility after a fall at home. 1. Acute on chronic debility secondary to fall with left clavicular fracture, recent left patellar fracture ? Admit under observation status to [facility]. PT/OT/case management consulted. Following with Dr. Ziegler [...] 75 minutes. Charges/Coding Visit Charges Inpatient E&M: 87726 Init Hosp L3 11/28/24 0353 <Electronically signed by Aguilar Gale DO> Cosigner Signature (if applicable): CC: Dr. Aguilar Gale DO; Dr. Rehan Lucero DO~ Signed [facility] Work Phone: 1(213) 557-268804-18-2025 History and physical note [facility] Medical Records Department [address] [place] [address] H&P Exam - Hospitalist 11/27/242134 MR#: [id number] Acct: [id number] Name: RADHA MAYERS Rep #:[id number] : 1935 89 From: Aguilar kaba DO PCP: Dr. Rehan Lucero DO Status:ADM SUZIE Location: [facility] WA831-7 HPI - General General Date of Admission: 11/27/24 Date of Service: 11/27/24 Chief Complaint: Fall with left shoulder pain HPI Narrative RADHA MAYERS, is a 89 F who presented to [facility] ED on 11/27/24 with left shoulder [...] denies any acute concerns at this time. [facility] Medical History (Updated 11/27/24 @ 21:48 by [...] (DVT) (04/2012) Atherosclerosis of coronary artery of [place] heart without angina pectoris Essential (primary) hypertension [...] denosumab 60 mg/mL subcutaneous 60 mg subcut [id number] oa 11/26/24 Unknown History syringe (Prolia) ibuprofen [...] Neut % (Auto) 59.3, Lymph % (Auto) 23.8,Dickenson % (Auto) 12.2 H, Eos % (Auto) [...] of the distal left clavicle. Reading Location: [facility] Thoracic Spine CT 11/27/24 18:54 IMPRESSION: No acute fracture or subluxation. Extensive compression fracture deformity of the thoracic spine as described above. Large hiatal hernia with circumferential wall thickening of the distal esophagus. Esophagram may behelpful for further characterization. Patchy bibasilar pulmonary infiltrates. Reading Location: [facility] Brain CT 11/27/24 19:16 IMPRESSION: NO ACUTE INTRACRANIAL HEMORRHAGE Reading Location: [facility] Knee X-Ray 11/27/24 19:16 IMPRESSION: No change in healing fracture of the patella. No new fracture. Moderate arthrosis. Reading Location: [facility] Lumbar Spine CT 11/27/24 19:25 IMPRESSION: No acute fracture or subluxation. Multiple chronic compression fractures with vertebroplasty at L1. Degenerative disc disease as described above. Reading Location: [facility] Cervical Spine CT 11/27/24 19:30 IMPRESSION: No acute fracture. Slight anterolisthesis of C4 on C5. Reading Location: [facility] Clavicle X-Ray 11/27/24 20:01 IMPRESSION: Acute comminuted inferiorly displaced fracture of the distal left clavicle. Reading Location: [id number] Assessment & Plan Assessment/Plan (1) Fall: (2) Closed fracture of left clavicle: (3) Immobility: PLAN: Plan Patient is an 89-year-old female who presented [facility] ED on 11/27/24 with left shoulder pain and debility after a fall at home. 1. Acute on chronic debility secondary to fall with left clavicular fracture, recent left patellar fracture ? Admit under observation status to [facility]. PT/OT/case management consulted. Following with Dr. Ziegler [...] 75 minutes. Charges/Coding Visit Charges Inpatient E&M: 68334 Init Hosp L3 11/28/24 0352 Cosigner Signature (if applicable): CC: Dr. Aguilar Gale, DO; Dr. Rehan Lucero DO~ Signed [facility]04-17-2025 Discharge summary [facility] Medical Records Department [address] [place] [address] Emergency Department Summary 11/27/24 MR#: [id number] Acct: [id number] Name: RADHA MAYERS Rep #:[id number] : 1935 89 From: Albin Plummer MD PCP: Dr. Rehan Lucero DO Status:ADM SUZIE Location: [place] [address] HPI History of Present Illness Chief Complaint: [...] left s houlder. She is left-hand dominant. [facility] Medical History (HFpEF) heart failure with preserved ejection fraction Osteoarthritis of hip (12/25/16) Chronic kidney disease (CKD) Weakness generalized COVID-19 (12/2020) EE (eosinophilic esophagitis) Paroxysmal atrial fibrillation Syncope (03/2019) Bilateral pleural effusion Chronic renal insufficiency Hiatal hernia Secondary pulmonary arterial hypertension Osteoarthritis Depression GERD (gastroesophageal reflux disease) Hypothyroidism Fibromyalgia Deep vein thrombosis (DVT) (04/2012) Atherosclerosis of coronary artery of [place] heart without angina pectoris Essential (primary) hypertension [...] denosumab 60 mg/mL subcutaneous 60 mg subcut [id number] 11/26/24 Unknown History syringe (Prolia) ibuprofen 400 [...] % (Auto) 59.3 Lymph % (Auto) 23.8 Dickenson % (Auto) 12.2 H Eos % (Auto) [...] of the distal left clavicle. Reading Location: [id number] Thoracic Spine CT 11/27/24 18:54 IMPRESSION: No acute fracture or subluxation. Extensive compression fracture deformity of the thoracic spine as described above. Large hiatal hernia with circumferential wall thickening of the distal esophagus. Esophagram may behelpful for further characterization. Patchy bibasilar pulmonary infiltrates. Reading Location: [facility] Brain CT 11/27/24 19:16 IMPRESSION: NO ACUTE INTRACRANIAL HEMORRHAGE Reading Location: [facility] Knee X-Ray 11/27/24 19:16 IMPRESSION: No change in healing fracture of the patella. No new fracture. Moderate arthrosis. Reading Location: [facility] Lumbar Spine CT 11/27/24 19:25 IMPRESSION: No acute fracture or subluxation. Multiple chronic compression fractures with vertebroplasty at L1. Degenerative disc disease as described above. Reading Location: [facility] Cervical Spine CT 11/27/24 19:30 IMPRESSION: No acute fracture. Slight anterolisthesis of C4 on C5. Reading Location: [facility] Clavicle X-Ray 11/27/24 20:01 IMPRESSION: Acute comminuted inferiorly displaced fracture of the distal left clavicle. Reading Location: [facility] Discharge Plan Dx/Rx/DC Orders Clinical Impression: Fall, Closed fracture of left clavicle, Immobility Disposition Disposition: Acute Care Hospital [facility] What to do if you have Problems For any increased pain, shortness of breath, bleeding, nausea or vomiting, chestpain, or any unexpected problems, contact your Primary Care Provider. Call [facility] ([phone]) or report tothe closest Emergency Room. Call 911 if necessary. 11/27/24 2200 Cosigner Signature (if applicable): CC: Dr. Rehan Lucero, DO ~ Signed [facility]04-17-2025 Radiology Diagnostic study note [facility] Imaging Services [address] [place], [place] [id number] Spine Thoracic without Contras MR#: [id number] Acct: [id number] Name: RADHA MAYERS Rep #: [id number] : 1935 F 89 From: Jozef Pimentel DO PCP: Dr. Rehan Lucero DO Status: REG ER Study:Spine Thoracic without Contras Date of Exam: 11/27/24 Exam# [id number] Ordering Dr: Albin Plummer MD PROCEDURE: SPINE [...] characterization. Patchy bibasilar pulmonary infiltrates. Reading Location: [facility] CC: Dr. Albin Plummer MD; Dr. Rehan Lucero DO ~ Plaster Machine Operator: Signed [facility]04-17-2025 Radiology Diagnostic study note [facility] Imaging Services [address] [facility] [facility] [address] Spine Lumbar without Contrast MR#: [id number] Acct: [id number] Name: RADHA MAYERS Rep #: [id number] : 1935 F 89 From: Mk Mae MD PCP: Dr. Rehan Lucero, Status: REG ER Study:Spine Lumbar without Contrast Date of E xam: 11/27/24 Exam# [id number] Ordering Dr: Albin Plummer MD PROCEDURE: SPINE [...] disc disease as described above. Reading Location: [id number] CC: Dr. Albin Plummer MD; Dr. Rehan Lucero DO ~ Plaster Machine Operator: Signed [facility]04-17-2025 Radiology Diagnostic study note [facility] Imaging Services [address] [place], [place] [address] Knee 1 or 2 Views MR#: [id number] Acct: [id number] Name: RADHA MAYERS Rep #: [id number] : 1935 F 89 From: Mk Mae MD PCP: Dr. Rehan Lucero DO Status: REG ER Study:Knee 1 or 2 Views Date of Exam: Exam# [id number] Ordering Dr: Albin Plummer MD PROCEDURE: KNEE [...] No new fracture. Moderate arthrosis. Reading Location: [facility] CC: Dr. Albin Plummer MD; Dr. Rehan Lucero DO ~ Plaster Machine Operator: Signed [facility]04-17-2025 Radiology Diagnostic study note [facility] Imaging Services [address] [place], [place] [address] Shoulder min 2 Views MR#: [id number] Acct: [id number] Name: RADHA MAYERS Rep #: [id number] : 1935 F 89 From: Mk Mae MD PCP: Dr. Rehan Lucero DO Status: REG ER Study:Shoulder min 2 Views Date of Exam: 11/27/24 Exam# [id number] Ordering Dr: Albin Plummer MD PROCEDURE: SHOULDER [...] of the distal left clavicle. Reading Location: [facility] CC: Dr. Albin Plummer MD; Dr. Rehan Lucero DO ~ Plaster Machine Operator: Signed [facility]04-17-2025 Radiology Diagnostic study note [facility] Imaging Services [address] [place] [address] (838) Clavicle MR#: [id number] Acct: [id number] Name: RADHA MAYERS Sakshi Rep #: [id number] : 1935 F 89 From: Mk Mae MD PCP: Dr. Rehan Lucero DO Status: REG ER Study:Clavicle Date of Exam: 11/27/24 Exam# [id number] Ordering Dr: Albin Plummer MD PROCEDURE: CLAVICLE 11/27/2024 REASON FOR EXAM: TRAUMA, PAIN TECHNIQUE: 2 view(s) of each clavicle FINDINGS: Left CLAVICLE: Bones right: Acute comminuted inferiorly displaced fracture of the distal left clavicle. Joints right: No severe arthrosis. Soft tissues right: Unremarkable. : RAD/Clavicle IMPRESSION: Acute comminuted inferiorly displaced fracture of the distal left clavicle. Reading Location: [facility] CC: Dr. Albin Plummer MD; Dr. Rehan Lucero DO ~ Plaster Machine Operator: Signed [facility]04-17-2025 Radiology Diagnostic study note [facility] Imaging Services [address] [place] [address] Spine Cervical without Contras MR#: [id number] Acct: [id number] Name: RADHA MAYERS Sakshi Rep #: [id number] : 1935 F 89 From: Jozef Pimentel DO PCP: Dr. Rehan Lucero DO Status: REG ER Study:Spine Cervical without Contras Date of Exam: 11/27/24 Exam# [id number] Ordering Dr: Albin Plummer MD PROCEDURE: SPINE [...] anterolisthesis of C4 on C5. Reading Location: [facility] CC: Dr. Albin Plummer MD; Dr. Rehan Lucero DO ~ Plaster Machine Operator: Signed [facility]04-17-2025 Radiology Diagnostic study note [facility] Imaging Services [address] [place], [place] [address] Brain/Head without Contrast MR#: [id number] Acct: [id number] Name: RADHA MAYERS Rep #: [id number] : 1935 F 89 From: Jozef Pimentel DO PCP: Dr. Rehan Lucero DO Status: REG ER Study:Brain/Head without Contrast Date of Exa m: 11/27/24 Exam# [id number] Ordering Dr: Albin Plummer MD PROCEDURE: BRAIN/HEAD [...] IMPRESSION: NO ACUTE INTRACRANIAL HEMORRHAGE Reading Location: [facility] CC: Dr. Albin Plummer MD; Dr. Rehan Lucero DO ~ Plaster Machine Operator: Signed [facility]04-17-2025 Discharge summary Author Albin Plummer [facility] Note Date/Time November 27, 2024 10: 00pm [facility] Medical Records Department [address] [place] [address] Emergency Department Summary 11/27/24 MR#: [id number] Acct: [id number] Name: RADHA MAYERS Rep #:[id number] : 1935 89 From: Albin Plummer MD PCP: Dr. Rehan Lucero DO Status:ADM SUZIE Location: [address] History of Present Illness Chief Complaint: [...] her left shoulder. She is left-hand dominant. [facility] Medical History (HFpEF) heart failure with preserved ejection fraction Osteoarthritis of hip (12/25/16) Chronic kidney disease (CKD) Weakness generalized COVID-19 (12/2020) EE (eosinophilic esophagitis) Paroxysmal atrial fibrillation Syncope (03/2019) Bilateral pleural effusion Chronic renal insufficiency Hiatal hernia Secondary pulmonary arterial hypertension Osteoarthritis Depression GERD (gastroesophageal reflux disease) Hypothyroidism Fibromyalgia Deep vein thrombosis (DVT) (04/2012) Atherosclerosis of coronary artery of [place] heart without angina pectoris Essential (primary) hypertension [...] denosumab 60 mg/mL subcutaneous 60 mg subcut [id number] 11/26/24 Unknown History syringe (Prolia) ibuprofen 400 [...] % (Auto) 59.3 Lymph % (Auto) 23.8 Dickenson % (Auto) 12.2 H Eos % (Auto) [...] of the distal left clavicle. Reading Location: [facility] Thoracic Spine CT 11/27/24 18:54 IMPRESSION: No acute fracture or subluxation. Extensive compression fracture deformity of the thoracic spine as described above. Large hiatal hernia with circumferential wall thickening of the distal esophagus. Esophagram may be helpful for further characterization. Patchy bibasilar pulmonary infiltrates. Reading Location: [facility] Brain CT 11/27/24 19:16 IMPRESSION: NO ACUTE INTRACRANIAL HEMORRHAGE Reading Location: [facility] Knee X-Ray 11/27/24 19:16 IMPRESSION: No change in healing fracture of the patella. No new fracture. Moderate arthrosis. Reading Location: [facility] Lumbar Spine CT 11/27/24 19:25 IMPRESSION: No acute fracture or subluxation. Multiple chronic compression fractures with vertebroplasty at L1. Degenerative disc disease as described above. Reading Location: [facility] Cervical Spine CT 11/27/24 19:30 IMPRESSION: No acute fracture. Slight anterolisthesis of C4 on C5. Reading Location: [facility] Clavicle X-Ray 11/27/24 20:01 IMPRESSION: Acute comminuted inferiorly displaced fracture of the distal left clavicle. Reading Location: [facility] Discharge Plan Dx/Rx/DC Orders Clinical Impression: Fall, Closed fracture of left clavicle, Immobility Disposition Disposition: Acute Care Hospital [facility] What to do if you have Problems For any increased pain, shortness of breath, bleeding, nausea or vomiting, chestpain, or any unexpected problems, contact your Primary Care Provider. Call [facility] ([phone]) or report to the closest Emergency Room. Call 911 if necessary. 11/27/242199 <Electronically signed by Albin Plummer MD> Cosigner Signature (if applicable): CC: Dr. Rehan Lucero, DO ~ Signed [facility] Work Phone: 1(866) 566-437604-16-2025 Evaluation note* Diagnosis Onset Date Resolution Status [...] 27 9:37pm Immobility acute November 27 9:37pm [facility] Work Phone: 1(220) 232-344804-16-2025 Evaluation note* Diagnosis Onset Date Resolution Status [...] 27 9:37pm Immobility inactive November 27 9:37pm [facility] Work Phone: 1(576) 741-866412-05-2024 Nurse Progress note Patient tolerated injection without signs or symptoms of reaction patient left the unit without incident. Digitally Signed by Sheryl Sandy RN on 07/17/2024 11:54 AM [facility]06-24-2024 Evaluation + Plan noteExtracted from: Title:Clinical Document Author:LOUIS PEARCE Date:02/04/24 [place] ADMISSION HISTORY AN D PHYSICIAL CHIEF COMPLAINT: HISTORY OF PRESENT ILLNESS: REVIEW OF SYSTEMS: ACTIVE PROBLEMS: (38) Abnormal x-ray of forearm (926928044) Anxiety (77752800) Balance problems (6616283322) Bradycardia (63082981) CAD (coronary artery disease) (91158655) Carpal tunnel syndrome, left (38007930) Chronic back pain (936352921) Chronic diastolic heart failure (8024432356) Chronic nausea (2792952585) Chronic systolic heart failure (6836434262) Depression (092391522) Dizziness (0571061826) Dysphagia (95435952) Eosinophilic esophagitis (463135422) Fibromyalgia (20043484) GERD (gastroesophageal reflux disease) (2420216576) Hiatal hernia (769744233) History of compression fracture of vertebral column (7722234662) HTN (hypertension) (0789521288) Hx of fall in Mar with R pelvic hairline fx, R wrist fx and R clavicle fx with surgery Hyperkalemia (72205569) Hyperlipidemia (117626423) Hypothyroidism (39998101) Irregular heart beat (377097285) Irritable bowel syndrome with diarrhea (119329581) Large hiatal hernia (626184433) Left foot pain (974697695) Left hip pain (03228307) Lightheadedness (8524825242) Neck pain (611824433) Osteoporosis (537348114) Peripheral edema (304674226) Personal history of COVID-19 (8191638130) RA (rheumatoid arthritis) (945342343) Restless leg syndrome (54299617) Screening for colon cancer (836755831) Stage 3b chronic kidney disease (CKD) (8365006765) Syncope (136256192) MEDICATIONS: Active Inpt Meds: onabotulinumtoxinA (Botox) Start: 02/04/24 9:00:00 EDT, Dose = 100 unit(s), = 1 vial(s), Miscellaneous, AsDirected, 0 Active PRN Meds: None One Time Meds: None Active IV Meds: Lactated Ringers Infusion 1,000 mL (LR 1,000 mL) Start: 02/04/24 9:12:00 EDT, Rate: 50 mL/hr, 02/04/24 9:12:00 EDT ALLERGIES: (3) Darvocet-N 100 Percocet 7.5/325 Ultram FAMILY HISTORY: SOCIAL HISTORY: PHYSICAL EXAM: VITALS: DhsvbyDpjbNZGrbvrWYClK1WFA8DzjlYn(kg) 02/03 09:3037.1--318686WE31/24 46.8 24 Hr Tmax: 37.1 at 02/03 [...] Scheduled Provider:REHAN LUCERO DO Location:[facility] [place] Appointment Type:[facility] 06-24-2024 Hospital Discharge instructions Patient Education 02/04/2024 [...] before eating solid foods. General instructions Take jumh-dwb-ugpyyrh and prescription medicines only as told by [...] 11/19/2016 Document Revised: 10/28/2018 Document Reviewed: 11/19/2016 [employer] Patient Education 2020 [employer]. 02/04/2024 10:20:04 Esophagogastroduodenoscopy, Care After (06097) Esophagogastroduodenoscopy, Care After Refer to this sheet [...] 07/16/2013 Document Revised: 01/04/2017 Document Reviewed: 06/22/2016 [employer] Interactive Patient Education 2019 [employer]. Follow Up Care 01/29/2024 11:22:24 With:LOUIS PEARCE MD Address: [address] [place] [phone] When: Unknown Comments:CALL DR PEARCE WITH ANY QUESTONS OR CONCERNS. GO TO THE EMERGENCY ROOM WITH ANY URGENT CONCERNS. [facility] 06-24-2024 Note Discharge Instructions Thank you for allowing [facility] to assist you with your healthcare needs. The following is importantdischarge information regarding your hospital visit. Your Care Team REHAN LUCERO DO, DR What to do next Scheduled Follow-Up Appointments Appointment Type When With Where [facility]30 AM [facility] Confirmed Follow Up Appointments Follow Up with LOUIS PEARCE MD Where:[address] [place] [address] [phone] Additional Information: CALL DR PEARCE WITH ANY [...] before eating solid foods. General instructions Take eixf-zvi-akojkso and prescription medicines only as told by [...] 11/19/2016 Document Revised: 10/28/2018 Document Reviewed: 11/19/2016 [employer] Patient Education 2020 [employer] Esophagogastroduodenoscopy, Care After Refer to this [...] 07/16/2013 Document Revised: 01/04/2017 Document Reviewed: 06/22/2016 [employer] Interactive Patient Education 2019 [employer]. Additional Information VACCINATE! IT SAVES LIVES! Members of the community who have not yet received the COVID-19 vaccine and would like to receive it can visit one of [facility] vaccine clinics. There are many vaccine clinic locations within the [facility]. For locations and available times, please visit [email or web address] It is important to note that some COVID mobile vaccine clinics are held outdoors and may be canceled in rainy or stormy conditions. To learn more about pediatric vaccinations (ages 5-11), we invite you to visit the [facility] webpage. https://www.[email or web address].org/pages/8321-Kcpkw-Bujmvarehpl-Jqfsnwbxck-Njqhr-Rxo stions.htmlTo learn more about the COVID-19 vaccine, we invite you to visit the CDC website for a list of frequently asked questions.https://www.cdc.gov/coronavirus/2019-ncov/vaccines/faq.html [facility] Patient Portal Access Instructions: Stay connected with your healthcare team and access your personal medical information anytime with the [facility] Patient Portal. Please follow the directions below to create your [facility] account: 1.Access the email account you provided upon registration to the hospital/physician office.2.Look for an invitation email from [facility].3.Open the email and access the invitation link: AcceptInvitation to [facility] [employer].4.Fill in the required [place] to create your account. To access your account, visit [email or web address]. Click the blue button labeled Access Patient [...] who you will allowto register on the [facility] [employer] Patient Portal for access to your information. You can also access the [facility] [employer] Patient Portal on the [facility] cherelle. Simply click on Patient Portal and then log into your account. If you would like to receive a full copy of your medical records, please contact the [facility] Medical Records Department by calling [phone], Sunday through Sunday between 8 a.m. and [...] Call your local pharmacy or go to http://bit.ly/[email or web address] to find one close to you.3.Make use of household items: Use cat litter or old coffee grounds to dispose medications if other options arenot available. Mix your drugs with these household products, seal them in an airtight container andthrow it into the garbage. Call [facility]: [phone] to be sure your drugs can be [...] Anesthesia Care, Care After Esophagogastroduodenoscopy, Care After (22913) Medication Leaflets My discharge plan and instructions have been reviewed and explained to me and I,RADHA MAYERS understand my current condition and have read and understand these discharge instructions. I have received a written copy of the plan/instructions. If I have questions, I am aware that I should contact my doctor. Patient/Staff Counselor Signature: Date/Time: Relationship to Patient: Witness Name/Signature: Date/Time: [facility]06-24-2024 Note Date of Service February 04, 2024 Procedure Name EGD with Botox injection Consent Taken before procedure Indication Patient with dysphagia abnormal esophageal manometry study Location [facility] Pre-Procedure Exam Dysphagia weight loss Procedural [...] LOUIS PEARCE MD on 02/04/2024 10:19 AM [facility]06-24-2024 Anesthesiology Consult note Patient: RADHA MAYERS Age: 88 years Sex: Female : 1935 Associated Diagnoses: None Author: LEONARDO RIGGINS PALLET ASSEMBLER-SEWER PIPE OFFBEARER Assessment Postanesthesia assessment Vitals: Vital signs from [...] by LEONARDO RIGGINS on 02/04/2024 10:13 AM [facility]06-24-2024 Note LAREDO ADMISSION HISTORY AND PHYSICIAL CHIEF COMPLAINT: HISTORY OF PRESENT ILLNESS: REVIEW OF SYSTEMS: ACTIVE PROBLEMS: (38) Abnormal x-ray of forearm (776004479) Anxiety (97567174) Balance problems (2675941580) Bradycardia (17792859) CAD (coronary artery disease) (41106340) Carpal tunnel syndrome, left (11496280) Chronic back pain (643649637) Chronic diastolic heart failure (5583096509) Chronic nausea (0050951837) Chronic systolic heart failure (3411412261) Depression (393162299) Dizziness (7817274346) Dysphagia (80957621) Eosinophilic esophagitis (690890142) Fibromyalgia (48411534) GERD (gastroesophageal reflux disease) (8282865717) Hiatal hernia (750656110) History of compression fracture of vertebral column (8337915798) HTN (hypertension) (2651392415) Hx of fall in Mar with R pelvic hairline fx, R wrist fx and R clavicle fx with surgery Hyperkalemia (00477556) Hyperlipidemia (545923724) Hypothyroidism (56900774) Irregular heart beat (144651832) Irritable bowel syndrome with diarrhea (060789689) Large hiatal hernia (650802166) Left foot pain (684661114) Left hip pain (01684574) Lightheadedness (2413932691) Neck pain (466527300) Osteoporosis (333933383) Peripheral edema (925385925) Personal history of COVID-19 (7937772995) RA (rheumatoid arthritis) (335274827) Restless leg syndrome (72794759) Screening for colon cancer (771539871) Stage 3b chronic kidney disease (CKD) (4174952689) Syncope (158331756) MEDICATIONS: Active Inpt Meds: onabotulinumtoxinA (Botox) Start: 02/04/24 9:00:00 EDT, Dose = 100 unit(s), = 1 vial(s), Miscellaneous, AsDirected, 0 Active PRN Meds: None One Time Meds: None Active IV Meds: Lactated Ringers Infusion 1,000 mL (LR 1,000 mL) Start: 02/04/24 9:12:00 EDT, Rate: 50 mL/hr, 02/04/24 9:12:00 EDT ALLERGIES: (3) Darvocet-N 100 Percocet 7.5/325 Ultram FAMILY HISTORY: SOCIAL HISTORY: PHYSICAL EXAM: VITALS: CwacbyOonxPDDitwgZLAsL7ELE8EpxlGp(kg) 02/03 09:3037.1--870794YP45/24 46.8 24 Hr Tmax: 37.1 at 02/03 [...] H&P unless noted below. Digitally Signed by LOUSI PEARCE MD on 02/04/2024 09:54 AM [facility]06-24-2024 Anesthesiology Consult note Patient: RADHA MAYERS Age: [...] Problem list: Medical Anxiety / SNOMED CT 57426482 / Confirmed Bradycardia / SNOMED CT 44891656 / Confirmed Carpal tunnel syndrome, left / SNOMED CT 59961371 / Confirmed Chronic diastolic heart failure / SNOMED CT 2536419593 / Confirmed Stage 3b chronic kidney disease (CKD) / SNOMED CT 1434141099 / Confirmed Chronic back pain / SNOMED CT 810173414 / Confirmed Chronic systolic heart failure / SNOMED CT 2384335090 / Confirmed CAD (coronary artery disease) / SNOMED CT 61023438 / Confirmed Dizziness / SNOMED CT 5588829792 / Confirmed Dysphagia / SNOMED CT 10731740 / Confirmed Eosinophilic esophagitis / SNOMED CT 573390266 / Confirmed Fibromyalgia / SNOMED CT 63390576 / Confirmed Left foot pain / SNOMED CT 011176611 / Confirmed GERD (gastroesophageal reflux disease) / SNOMED CT 6605681637 / Confirmed History of compression fracture of vertebral column / SNOMED CT 2381721772 / Confirmed Large hiatal hernia / SNOMED CT 382039514 / Confirmed Hiatal hernia / SNOMED CT 124589040 / Confirmed Left hip pain / SNOMED CT 90408395 / Confirmed Personal history of COVID-19 / SNOMED CT 3884164050 / Confirmed Hyperkalemia / SNOMED CT 66116816 / Confirmed Hyperlipidemia / SNOMED CT 058177585 / Confirmed HTN (hypertension) / SNOMED CT 0854317554 / Confirmed Hypothyroidism / SNOMED CT 44963458 / Confirmed Balance problems / SNOMED CT 5351219898 / Confirmed Irregular heart beat / SNOMED CT 003320843 / Confirmed Irritable bowel syndrome with diarrhea / SNOMED CT 069009276 / Confirmed Lightheadedness / SNOMED CT 2519236573 / Confirmed Chronic nausea / SNOMED CT 0250546579 / Confirmed Neck pain / SNOMED CT 359817756 / Confirmed Osteoporosis / SNOMED CT 037666267 / Confirmed Screening for colon cancer / SNOMED CT 561402917 / Confirmed Peripheral edema / SNOMED CT 888458236 / Confirmed Abnormal x-ray of forearm / SNOMED CT 625011844 / Confirmed Depression / SNOMED CT 977033988 / Confirmed Restless leg syndrome / SNOMED CT 79154275 / Confirmed RA (rheumatoid arthritis) / SNOMED CT 717813700 / Confirmed Syncope / SNOMED CT 594919311 / Confirmed, Active Problems (38) Abnormal x-ray [...] Syncope Histories Past Medical History: Active Syncope (381189366) Chronic back pain (671090494) Resolved Cardiac catheterization, left heart (742074047): Onset on 02/07/2013 at 77 years. Resolved. SOB (shortness of breath) (464577128): Resolved. DVT (deep venous thrombosis) (977071299): Resolved. Pleural effusion (63588147): Resolved. Arm laceration (623778564): Resolved. COVID-19 virus infection (9827393073): Resolved. Cellulitis of left lower extremity (1274808768): Resolved. Family History: Hypertension Mother Father Heart disease Mother Father Blood disorder Father Stroke Mother Diabetes Mother Procedure history: History of left hip replacement (885007135213468) on 02/07/2018 at 82 Years. Cholecystectomy (55414009). Cardiac catheterization (17539691). Angioplasty of artery (006003060). Knee replacement (549913393). Appendectomy (381679103). Hysterectomy (486781190). Cataract extraction (30808607). Tonsillectomy (385470885). Kyphoplasty of fracture of cervical spine using computed tomography (CT) guidance (0370839216). Social History: Social & Psychosocial Habits Alcohol [...] Signs (last 24 hrs) Last Charted Temp Rsysoatw21.1 DegC (FEB 03 09:30) SBPH 144 mmHg (FEB 03 09:30) DBP67 mmHg (FEB 03 09:30) Measurements from flowsheet : Measurements 02/04/2024 9:30 EDT Height 154.94 cm Admission Weight 46.82 kg Sledge Body Weight 47.80 kg Admission Body Mass [...] Attempts: 1 02/04/2024 9:41 EDT Allergies Yes Elevator Operator Service On Yes Consent Form Signed Yes Pre-op [...] Surgeon SN - CAt - Role Performed SEWER PIPE OFFBEARER SN - CAt - Role Performed Senior Scheduler 1 SN - CAt - Role Performed Beater Engineer 02/04/2024 9:30 EDT Height 154.94 cm Admission Weight 46.82 kg Sledge Body Weight 47.80 kg Admission Body Mass [...] Non-distended, Soft Skin Temperature Warm Skin Description [place], Normal for ethnicity, Dry Skin Integrity Intact [...] Designated Person #1 We May Share PHI [phone] Designated Person #1 Relationship Daughter Designated Person #2 We May Share PHI Dave [phone] Designated Person #2 Relationship Daughter Additional Designated [...] No Advanced Directives Yes Advance Directive Type [place] Durable Power of Picture Painter for [facility], [place] Declaration (Living Will) Advance Directive Location [...] evident Teaching Method Explanation Preferred Spoken Language Djiboutian Preferred Written Language Djiboutian Teaching Evaluation No further teaching needed Safety Brochure Information Reviewed Unable to complete [facility] Video Viewed No Information Given by [...] Day Patient History . Assessment and Plan [place] Society of Anesthesiologists (ASA) physical status classification: Class III. Anesthetic Preoperative Plan Anesthetic technique: MAC. Informed consent: signed by patient. Digitally Signed by LEONARDO RIGGINS on 02/04/2024 09:48 AM [facility]01-09-2024 Note ORIGINAL EXAMINATION: BONE DENSITOMETRY 08/21/2023 2:42 [...] Sign Date: 08/21/2023 3:26:48 PM Ordering Provider: [place] [address]-08-2023 Evaluation + Plan noteExtracted from: Title:Clinical Document Author:LOUIS PEARCE Date:12/18/22 LAREDO ADMISSION HISTORY AN D PHYSICIAL CHIEF COMPLAINT: HISTORY OF PRESENT ILLNESS: REVIEW OF SYSTEMS: ACTIVE PROBLEMS: (33) Abnormal x-ray of forearm (183971919) Anxiety (53840785) CAD (coronary artery disease) (89422366) Carpal tunnel syndrome, left (29990177) Chronic back pain (081651590) Chronic diastolic heart failure (8273514770) Chronic kidney disease (6270207209) Chronic nausea (8463979386) Chronic systolic heart failure (2176822335) Depression (453641087) Dysphagia (71304345) Eosinophilic esophagitis (434187180) Fibromyalgia (59845340) GERD (gastroesophageal reflux disease) (0035798897) Hiatal hernia (734349259) History of compression fracture of vertebral column (1036252802) HTN (hypertension) (1311729298) Hx of fall in Mar with R pelvic hairline fx, R wrist fx and R clavicle fx with surgery Hyperlipidemia (241032797) Hypothyroidism (35678314) Irritable bowel syndrome with diarrhea (002286117) Large hiatal hernia (556341670) Left foot pain (102112593) Left hip pain (62027766) Lightheadedness (2049516063) Neck pain (700574783) Osteoporosis (413512158) Peripheral edema (877681593) Personal history of COVID-19 (9487728086) RA (rheumatoid arthritis) (494267483) Restless leg syndrome (34939857) Screening for colon cancer (817385391) Syncope (775276764) MEDICATIONS: Active Inpt Meds: None Active PRN Meds: None One Time Meds: None Active IV Meds: Lactated Ringers Infusion 1,000 mL (LR 1,000 mL) Start: 12/18/22 7:18:00 EDT, Rate: 50 mL/hr, 12/18/22 7:18:00 EDT ALLERGIES: (3) Darvocet-N 100 Percocet 7.5/325 Ultram FAMILY HISTORY: SOCIAL HISTORY: PHYSICAL EXAM: VITALS: KybglkBtzjPZYgjybLTGtJ6NTD9MhuaAu(kg) 12/18 07:3236.9--016561KL72/08 97.7 24 Hr Tmax: 36.9 at 12/18 [...] Date:01/25/2023 02:00:00 PM Scheduled Provider:REHAN LUCERO DO Location:[facility] Appointment Type:PC OV Future Scheduled Tests Radiology* XR Spine Cervical AP/LAT 02/22/22 [facility] 05-08-2023 Hospital Discharge instructions Patient Education 12/18/2022 [...] before eating solid foods. General instructions Take kpgp-uue-ajecrvx and prescription medicines only as told by [...] 11/19/2016 Document Revised: 10/28/2018 Document Reviewed: 11/19/2016 [employer] Patient Education 2020 [employer]. 12/18/2022 09:06:25 Esophagogastroduodenoscopy, Care After (76444) Esophagogastroduodenoscopy, Care After Refer to this sheet [...] 07/16/2013 Document Revised: 01/04/2017 Document Reviewed: 06/22/2016 [employer] Interactive Patient Education 2019 [employer]. Follow Up Care 12/14/2022 10:31:16 With:LOUIS PEARCE MD Address: [address] [facility] [address] [place], [place] [phone] When: Unknown Comments:CALL DR GUERIN OFFICE WITH ANY QUESTIOINS OR CONCERNS. GO TO THE EMERGENCY ROOM WITH ANY URGENT MATTERS. [facility] 05-08-2023 Summary of episode note Discharge Instructions Thank you for allowing [facility] to assist you with your healthcare needs. The following is importantdischarge information regarding your hospital visit. Your Care Team REHAN LUCERO DO, DR. What to do next Scheduled Follow-Up Appointments Appointment Type When With Where Contact InformationPC OV 01/25/2023 02:00 PM EDT REHAN LUCERO DO [address] [phone] Follow Up Appointments Follow Up with LOUIS PEARCE MD When Why: CALL DR GUERIN OFFICE WITH ANY QUESTIOINS OR CONCERNS. GO TO THE EMERGENCY ROOM WITH ANY URGENT MATTERS. Where: [address] [facility] [address] [place] [phone] The Following Activity and Diet Have Been [...] before eating solid foods. General instructions Take hsrz-tbe-mkxrjrw and prescription medicines only as told by [...] 11/19/2016 Document Revised: 10/28/2018 Document Reviewed: 11/19/2016 [employer] Patient Education 2020 [employer]. Esophagogastroduodenoscopy, Care After Refer to this sheet [...] 07/16/2013 Document Revised: 01/04/2017 Document Reviewed: 06/22/2016 [employer] Interactive Patient Education 2019 [employer] Additional Information VACCINATE! IT SAVES LIVES! Members of the community who have not yet received the COVID-19 vaccine and would like to receive it can visit one of [facility] vaccine clinics. There are many vaccine clinic locations within the [facility]. For locations and available times, please visit [email or web address] It is important to note that some COVID mobile vaccine clinics are held outdoors and may be canceled in rainy or stormy conditions. To learn more about pediatric vaccinations (ages 5-11), we invite you to visit the [facility] webpage. [email or web address]/[email or web address] learn more about the COVID-19 vaccine, we invite you to visit the CDC website for a list of frequently asked questions. https://www.cdc.gov/coronavirus/2019-ncov/vaccines/faq.html [employer] Patient Portal Access Instructions: Stay connected with your healthcare team and access your personal medical information anytime with the [employer] Patient Portal.If you would like a full copy of your medical records, please contact the [facility] Medical Records Department, Sunday through Sunday between 8a.m. and 4:30p.m. Please follow the directions below to access the portal: 1.Access the email account you provided upon registration to the [facility].2.Look for an invitation email from [facility].3.Open the email and access the invitation link: Accept Invitation to [employer]4.Fill in the required [place]ar[place] to create your account. Sign into [email or web address] with your username and password that you [...] you will allow to register on the [employer] Patient Portal for access to your information. You can also access the [employer] Patient Portal on the [employer] cherelle. Simply click on Health Records under [facility] and then click on the [employer] logo. HOW TO SAFELY DISPOSE OF PRESCRIPTION [...] Call your local pharmacy or go to [email or web address] to find one close to you.3.Make use of household items: Use cat litter or old coffee grounds to dispose medications if other options arenot available. Mix your drugs with these household products, seal them in an airtight container andthrow it into the garbage. Call [facility]: [phone] to be sure your drugs can be [...] Anesthesia Care, Care After Esophagogastroduodenoscopy, Care After (01754) Medication Leaflets My discharge plan and instructions have been reviewed and explained to me and I,RADHA MAYERS understand my current condition and have read and understand these discharge instructions. I have received a written copy of the plan/instructions. If I have questions, I am aware that I should contact my doctor. Patient/Staff Counselor Signature: Date/Time: Relationship to Patient: Witness Name/Signature: Date/Time: [facility]05-08-2023 Anesthesiology Consult note Patient: RADHA MAYERS Age: 87 years Sex: Female : 1935 Associated Diagnoses: None Author: LEONARDO RIGGINS APRN-SEWER PIPE OFFBEARER Assessment Postanesthesia assessment Vitals: Vital signs from [...] by LEONARDO RIGGINS on 12/18/2022 08:51 AM [facility]05-08-2023 Note LAREDO ADMISSION HISTORY AND PHYSICIAL CHIEF COMPLAINT: HISTORY OF PRESENT ILLNESS: REVIEW OF SYSTEMS: ACTIVE PROBLEMS: (33) Abnormal x-ray of forearm (469903909) Anxiety (07529211) CAD (coronary artery disease) (49348906) Carpal tunnel syndrome, left (11058307) Chronic back pain (932563929) Chronic diastolic heart failure (1594628529) Chronic kidney disease (7492111381) Chronic nausea (4921970157) Chronic systolic heart failure (4405198628) Depression (759528186) Dysphagia (73571359) Eosinophilic esophagitis (425110625) Fibromyalgia (75620615) GERD (gastroesophageal reflux disease) (8818073106) Hiatal hernia (817797005) History of compression fracture of vertebral column (3743948144) HTN (hypertension) (9813616815) Hx of fall in Mar with R pelvic hairline fx, R wrist fx and R clavicle fx with surgery Hyperlipidemia (770411149) Hypothyroidism (79170661) Irritable bowel syndrome with diarrhea (007734381) Large hiatal hernia (903553626) Left foot pain (956997393) Left hip pain (59849575) Lightheadedness (7653149553) Neck pain (045364757) Osteoporosis (744233468) Peripheral edema (116389686) Personal history of COVID-19 (6209170502) RA (rheumatoid arthritis) (583640768) Restless leg syndrome (88233680) Screening for colon cancer (353848916) Syncope (399149667) MEDICATIONS: Active Inpt Meds: None Active PRN Meds: None One Time Meds: None Active IV Meds: Lactated Ringers Infusion 1,000 mL (LR 1,000 mL) Start: 12/18/22 7:18:00 EDT, Rate: 50 mL/hr, 12/18/22 7:18:00 EDT ALLERGIES: (3) Darvocet-N 100 Percocet 7.5/325 Ultram FAMILY HISTORY: SOCIAL HISTORY: PHYSICAL EXAM: VITALS: XdvjwdXkcsXJJyswhCGDbJ1RGY8JvvjGw(kg) 12/18 07:3236.9--289445AC20/08 97.7 24 Hr Tmax: 36.9 at 12/18 [...] LOUIS PEARCE MD on 12/18/2022 08:24 AM [facility]05-08-2023 Anesthesiology Consult note Patient: RADHA MAYERS Age: [...] Problem list: Medical Anxiety / SNOMED CT 63384412 / Confirmed Carpal tunnel syndrome, left / SNOMED CT 71661206 / Confirmed Chronic diastolic heart failure / SNOMED CT 5786830925 / Confirmed Chronic kidney disease / SNOMED CT 4602232725 / Confirmed Chronic back pain / SNOMED CT 157491629 / Confirmed Chronic systolic heart failure / SNOMED CT 4328639493 / Confirmed CAD (coronary artery disease) / SNOMED CT 97740336 / Confirmed Dysphagia / SNOMED CT 41775044 / Confirmed Eosinophilic esophagitis / SNOMED CT 302519741 / Confirmed Fibromyalgia / SNOMED CT 06529132 / Confirmed Left foot pain / SNOMED CT 972928212 / Confirmed GERD (gastroesophageal reflux disease) / SNOMED CT 0343927165 / Confirmed History of compression fracture of vertebral column / SNOMED CT 7928513326 / Confirmed Large hiatal hernia / SNOMED CT 941411610 / Confirmed Hiatal hernia / SNOMED CT 705917497 / Confirmed Left hip pain / SNOMED CT 46930413 / Confirmed Personal history of COVID-19 / SNOMED CT 0338596723 / Confirmed Hyperlipidemia / SNOMED CT 442913775 / Confirmed HTN (hypertension) / SNOMED CT 5926166682 / Confirmed Hypothyroidism / SNOMED CT 34440039 / Confirmed Irritable bowel syndrome with diarrhea / SNOMED CT 337375279 / Confirmed Lightheadedness / SNOMED CT 5634910408 / Confirmed Chronic nausea / SNOMED CT 6678399250 / Confirmed Neck pain / SNOMED CT 196723942 / Confirmed Osteoporosis / SNOMED CT 301067259 / Confirmed Screening for colon cancer / SNOMED CT 791244133 / Confirmed Peripheral edema / SNOMED CT 957385268 / Confirmed Abnormal x-ray of forearm / SNOMED CT 847877840 / Confirmed Depression / SNOMED CT 225503182 / Confirmed Restless leg syndrome / SNOMED CT 66921330 / Confirmed RA (rheumatoid arthritis) / SNOMED CT 023262823 / Confirmed Syncope / SNOMED CT 102909037 / Confirmed, Active Problems (33) Abnormal x-ray [...] Syncope Histories Past Medical History: Active Syncope (457120757) Chronic back pain (048803435) Resolved Cardiac catheterization, left heart (108483110): Onset on 02/07/2013 at 77 years. Resolved. SOB (shortness of breath) (291059052): Resolved. DVT (deep venous thrombosis) (658354426): Resolved. Pleural effusion (16204947): Resolved. Arm laceration (929180470): Resolved. COVID-19 virus infection (8040409221): Resolved. Cellulitis of left lower extremity (1415356659): Resolved. Fall at home (44244018): Resolved. Family History: Hypertension Mother Father Heart disease Mother Father Blood disorder Father Stroke Mother Diabetes Mother Procedure history: History of left hip replacement (522675429137244) on 02/07/2018 at 82 Years. Cholecystectomy (19454644). Cardiac catheterization (37230502). Angioplasty of artery (535129817). Knee replacement (324589108). Appendectomy (479864125). Hysterectomy (811253863). Cataract extraction (85022155). Tonsillectomy (686454694). Social History Social & Psychosocial Habits Alcohol [...] Admission Weight 97.7 kg Weight Method Stated Sledge Body Weight 43.24 kg Admission Body Mass [...] Surgeon SN - CAt - Role Performed Senior Scheduler 1 SN - CAt - Role Performed SEWER PIPE OFFBEARER SN - CAt - Role Performed Beater Engineer 12/18/2022 7:41 EDT Lactated Ringers Injection Begin Bag 1,000 mL mL 12/18/2022 7:33 EDT Designated Person #1 We May Share PHI [phone] Designated Person #1 Relationship Daughter Designated Person #2 We May Share PHI Dave [phone] Designated Person #2 Relationship Daughter Additional Designated Person Share PHI Just to two primary Privacy Restrictions Requested None Height 149.9 cm Admission Weight 97.7 kg Weight Method Stated Sledge Body Weight 43.24 kg Admission Body Mass [...] No further teaching needed Preferred Written Language Djiboutian Preferred Spoken Language Djiboutian Pre Procedure/Surgery Education Appropriate expectations Information Given [...] Saturation 95 % . Assessment and Plan [place] Society of Anesthesiologists (ASA) physical status classification: Class III. Anesthetic Preoperative Plan Anesthetic technique: MAC. Informed consent: signed by patient. Digitally Signed by LEONARDO RIGGINS on 12/18/2022 08:22 AM [facility]11-13-2022 Hospital Discharge instructions Patient Education 06/25/2022 07:51:21 [...] worsens and is not improved with elevation. [id number] The [employer]. [address] [place] [address], [place] [address]. All rights reserved. This information is not intended as a substitute for professional medical care. Always follow yourhealthcare professional's instructions. Follow Up Care 06/25/2022 05:59:25 With:REHAN LUCERO DO Address: [address] [place] [phone] When:2-4 days [facility] 11-13-2022 Note Discharge Instructions Thank you for allowing [facility] to assist you with your healthcare needs. The following is importantdischarge information regarding your hospital visit. Diagnosis from Today's Visit Left Hip Pain What to Do Next Instructions from Your Care Team No qualifying data available. Post Acute Orders No qualifying data available. You Need to Schedule the Following Appointments Follow Up with REHAN LUCERO DO When Within 2-4 days Where: [address] [place] [id number] [phone] Allergies Darvocet-N 100 Percocet 7.5/325 Ultram Medications [...] worsens and is not improved with elevation. 0946-2012 The [employer]. [address] [place] [address], [place] [id number]. All rights reserved. This information is not intended as a substitute for professional medical care. Always follow yourhealthcare professional's instructions. Additional Information VACCINATE! IT SAVES LIVES! Members of the community who have not yet received the COVID-19 vaccine and would like to receive it can visit one of [facility] vaccine clinics. There are many vaccine clinic locations within the [facility]. For locations and available times, please visit [email or web address]. It is important to note that some COVID mobile vaccine clinics are held outdoors and may be canceled in rainy orstormy conditions. To learn more about pediatric vaccinations (ages 5-11), we invite you to visit the [facility] webpage. https://www.[email or web address]/pages/1176-Belrm-Wphwdkumnyr-Jqyfarscbm-Wxyyb-Zvb stions.htmlTo learn more about the COVID-19 vaccine, we invite you to visit the [facility] website for a list of frequently asked questions. [email or web address]-[email or web address]/imtvs-[email or web address]-[email or web address] _[email or web address]-Questions.pdf [facility] Patient Portal Access Instructions: Stay connected with your healthcare team and access your personal medical information anytime with the [facility] Patient Portal. If you would like a full copy of your medical records please contact the [facility] Medical Records Department Sunday through Sunday between 8a.m. and 4:30p.m. Please follow the directions below to access the portal: 1.Access the email account you provided upon registration to the [facility].2.Look for an invitation email from [facility].3.Open the email and access the invitation link: Accept Invitation to [employer]4.Fill in the required [place] to create your [...] you will allow to register on the [facility] [employer] Patient Portal for access to your information. You can also access the [facility] Patient Portal on the EdCourage. Simply click on Health Records under [facility] and then click on the [employer] logo. [...] Call your local pharmacy or go to http://Vidable.[employer]/9K6Gu6u to find one close to you.3.Make use of household items: Use cat litter or old coffee grounds to dispose medications if other options arenot available. Mix your drugs with these household products, seal them in an airtight container andthrow it into the garbage. Call [facility]: [phone] to be sure your drugs can be [...] aware that I should contact my doctor. Patient/Staff Counselor Signature: Date/Time: Relationship to Patient: Witness Name/Signature: Date/Time: [facility]11-13-2022 Note ORIGINAL EXAMINATION: CT OF THE LEFT [...] Sign Date: 06/25/2022 7:34:42 AM [facility]ing [facility] Note ORIGINAL EXAMINATION: CT OF THE [...] Date: 06/25/2022 7:34:42 AM [facility]ing [facility] Discharge instructions Patient Education 05/30/2022 21:56:43 [...] be painfulwhen eating. You may use an tmpy-yua-fvlzwfv local numbing solution for pain relief. If [...] off before 7 days Wound edges re-open 6169-0098 The [employer]. [address] [place] [address], [place] [address]. All rights reserved. This information is not [...] in vomit, stools (black or red color) 0148-7492 The [employer]. [address] [place] [address]. All rights reserved. This information is not [...] to move wrist, hand or fingers properly. 6543-1580 [employer]. [address] [place] [address], [place] [address]. All rights reserved. This information is not intended as a substitute for professional medical care. Always follow yourhealthcare professional's instructions. Follow Up Care 05/30/2022 18:10:21 With:REHAN LUCERO DO Address: [address] [place] [phone] When:2-4 days [facility] 10-18-2022 Note Discharge Instructions Thank you for allowing [facility] to assist you with your healthcare needs. [...] LUCERO DO When Within 2-4 days Where: [address] [place] [phone] Allergies Darvocet-N 100 Percocet 7.5/325 Ultram Medications [...] be painfulwhen eating. You may use an ruci-btz-jnpshfp local numbing solution for pain relief. If [...] off before 7 days Wound edges re-open 3771-5059 The [employer]. [address] [place] [address]. All rights reserved. This information is not [...] in vomit, stools (black or red color) 0245-3535 [employer]. [address] [place] [address]. All rights reserved. This information is not [...] to move wrist, hand or fingers properly. 6219-0938 [employer]. [address] [place] [address]. All rights reserved. This information is not intended as a substitute for professional medical care. Always follow yourhealthcare professional's instructions. Additional Information VACCINATE! IT SAVES LIVES! Members of the community who have not yet received the COVID-19 vaccine and would like to receive it can visit one of [facility] vaccine clinics. There are many vaccine clinic locations within the [facility]. For locations and available times, please visit [email or web address]. It is important to note that some COVID mobile vaccine clinics are held outdoors and may be canceled in rainy orstormy conditions. To learn more about pediatric vaccinations (ages 5-11), we invite you to visit the [facility] webpage. https://www.[facility].org/pages/7917-Dtnjd-Ttqlvahgtcd-Wxinmhxloy-Scamf-Nvm stions.htmlTo learn more about the COVID-19 vaccine, we invite you to visit the [facility] website for a list of frequently asked questions. https://[employer]/assets/Aetnbvxy-aim-Fnsceowz/lenza-Phtblnn-Awerxvztjh _Asked-Questions.pdf [facility] Patient Portal Access Instructions: Stay connected with your healthcare team and access your personal medical information anytime with the [facility] [employer] Patient Portal. If you would like a full copy of your medical records please contact the [facility] Medical Records Department Sunday through Sunday between 8a.m. and 4:30p.m. Please follow the directions below to access the portal: 1.Access the email account you provided upon registration to the [facility].2.Look for an invitation email from [facility].3.Open the email and access the invitation link: Accept Invitation to [facility]4.Fill in the required [place] to create your account. Sign into www.[email or web address] Cloud with your username and password that you [...] you will allow to register on the [facility] [employer] Patient Portal for access to your information. You can also access the [facility] [employer] Patient Portal on the Audience.fm cherelle. Simply click on Health Records under [facility] and then click on the [employer] logo. [...] Call your local pharmacy or go to http://bit.[employer]/7Y0Hq6u to find one close to you.3.Make use of household items: Use cat litter or old coffee grounds to dispose medications if other options arenot available. Mix your drugs with these household products, seal them in an airtight container andthrow it into the garbage. Call [facility]: [phone] to be sure your drugs can be [...] aware that I should contact my doctor. Patient/Staff Counselor Signature: Date/Time: Relationship to Patient: Witness Name/Signature: Date/Time: [facility]10-18-2022 Note ORIGINAL EXAMINATION: 3 XRAY VIEWS OF [...] Sign Date: 05/30/2022 9:38:49 PM [facility]ing Provider[facility] Note ORIGINAL EXAMINATION: THREE XRAY VIEWS [...] Sign Date: 05/30/2022 9:32:37 PM [facility]ing [facility] Note ORIGINAL EXAMINATION: THREE XRAY VIEWS [...] Date: 05/30/2022 9:31:47 PM [facility] Note ORIGINAL EXAMINATION: CT OF THE HEAD [...] Date: 05/30/2022 9:30:30 PM [facility] Note ORIGINAL EXAMINATION: 3 XRAY VIEWS OF [...] Sign Date: 05/30/2022 9:38:49 PM Ordering Provider: [address]18-2022 Note ORIGINAL EXAMINATION: THREE XRAY VIEWS OF THE LEFT ELBOW 05/30/2022 9:03 pm COMPARISON: None. HISTORY: ORDERING SYSTEM PROVIDED HISTORY: Reason for Exam: fall FINDINGS: There is no elbow effusion. There is no acute fracture or dislocation. Alignment is normal. IMPRESSION: No acute abnormality. Interpreted by: Mark Hong DO Preliminary Report By: Mrak Hong DO Electronically signed By Mark Hong DO Dictated Date: 05/30/2022 9:32:01 PM Prelim Date: 05/30/2022 9:32:37 PM Sign Date: 05/30/2022 9:32:37 PM Ordering Provider: [facility]10-18-2022 Note ORIGINAL EXAMINATION: THREE XRAY VIEWS OF [...] Sign Date: 05/30/2022 9:31:47 PM Ordering Provider: [facility]10-18-2022 Note ORIGINAL EXAMINATION: CT OF THE HEAD [...] Sign Date: 05/30/2022 9:30:30 PM Ordering Provider: [facility]07-15-2022 Note ORIGINAL EXAMINATION: TWO XRAY VIEWS OF [...] Sign Date: 02/24/2022 4:53:36 PM Ordering Provider: [facility]07-15-2022 Note ORIGINAL EXAMINATION: TWO XRAY VIEWS OF [...] Sign Date: 02/24/2022 4:53:36 PM Ordering Provider: [facility]03-21-2022 Evaluation + Plan noteExtracted from: Title:Clinical Document Author:LOUIS PEARCE Date:10/31/21 [facility] ADMISSION HISTORY AN D PHYSICIAL CHIEF COMPLAINT: HISTORY OF PRESENT ILLNESS: REVIEW OF SYSTEMS: ACTIVE PROBLEMS: (30) Abnormal x-ray of forearm (681770979) Acute kidney injury (47828660) Anxiety (80691810) CAD (coronary artery disease) (89427562) Carpal tunnel syndrome, left (89142624) Chronic back pain (434358005) Chronic diastolic heart failure (6009559642) Chronic kidney disease (6449461008) Chronic nausea (2423726218) Chronic systolic heart failure (1626264075) Depression (304894132) Dysphagia (41856842) Eosinophilic esophagitis (407505721) Fibromyalgia (35059077) GERD (gastroesophageal reflux disease) (1046488629) Hiatal hernia (871484627) History of compression fracture of vertebral column (7095249233) HTN (hypertension) (8674396703) Hx of fall in Mar with R pelvic hairline fx, R wrist fx and R clavicle fx with surgery Hyperlipidemia (514101583) Hypothyroidism (86034342) IBS (irritable bowel syndrome) (05261469) Large hiatal hernia (891297371) Lightheadedness (9836806453) Osteoporosis (267750075) Peripheral edema (765647669) Personal history of COVID-19 (6053936268) RA (rheumatoid arthritis) (928457280) Restless leg syndrome (20011170) Screening for colon cancer (403941824) MEDICATIONS: Active Inpt Meds: None Active PRN [...] FAMILY HISTORY: SOCIAL HISTORY: PHYSICAL EXAM: VITALS: MljdjtIdkvDCDhixtXNYiC1DNA8JjkuKp(kg) 10/31 09:10--100/59--------10/31 57.5 10/31 07:3136.2--120449QF 24 Hr Tmax: 36.2 at 10/31 07:31 [...] Date:12/30/2021 02:00:00 PM Scheduled Provider:REHAN LUCERO DO Location[facility] Appointment Type:PC OV Future Scheduled Tests Radiology* XR Chest 2 Views (PA & Lateral) 08/26/21 [facility] 03-21-2022 Hospital Discharge instructions Patient Education 10/31/2021 [...] before eating solid foods. General instructions Take mzlj-ifp-xvkaxau and prescription medicines only as told by [...] 11/19/2016 Document Revised: 10/28/2018 Document Reviewed: 11/19/2016 [employer] Patient Education 2020 [employer]. 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 [...] Weakness or dizziness Shaking chills Drenching sweats 4142-4123 The [employer]. [address] [place] [address]. All rights reserved. This information is not [...] or higher after 2 days on antibiotics 0200-5891 The [employer]. [address] [place] [address]. All rights reserved. This information is not intended as a substitute for professional medical care. Always follow yourhealthcare professional's instructions. Follow Up Care 08/09/2021 20:16:42 With:REHAN LUCERO DO Address: [phone] When:2-4 days [facility] 09-23-2019 Evaluation note* Diagnosis Onset Date Resolution Status History of loop recorder May 05, 2019 chronic Paroxysmal atrial fibrillation chronic Syncope resolved Atherosclerosis of coronary artery of [place] heart without angina pectoris chronic Chronic combined systolic an d diastolic CHF (congestive heart failure) chronic Essential (primary) hypertension chronic History of loop recorder May 05, 2019 chronic Hyperlipidemia chronic Paroxysmal atrial fibrillation [facility] Work Phone: 1(846) 144-762709-23-2019 Evaluation note* Diagnosis Onset Date Resolution Status History of loop recorder May 05, 2019 chronic Paroxysmal atrial fibrillation chronic Syncope March, resolved Aortic regurgitation acute Essential (primary) hypertension chronic History of coronary artery stent placement May, 2011 chronic Hyperlipidemia chronic Paroxysmal atrial fibrillation [facility] Work Phone: 1(817) 787-380509-23-2019 Evaluation note* Diagnosis Onset Date Resolution Status [...] 2019 chronic Hyperlipidemia chronic Paroxysmal atrial fibrillation [facility] Work Phone: 1(878) 616-170809-23-2019 Evaluation note* Diagnosis Onset Date Resolution Status [...] 2019 chronic Hyperlipidemia chronic Paroxysmal atrial fibrillation [facility] Work Phone: 1(653) 278-830810-19-2012 Evaluation note* Diagnosis Onset Date Resolution Status Aortic regurgitation acute Essential (primary) hypertension chronic History of coronary artery stent placement May chronic Hyperlipidemia chronic Paroxysmal atrial fibrillation [facility] Work Phone: 1(675) 356-227410-19-2012 Evaluation note* Diagnosis Onset Date Resolution Status Aortic regurgitation acute Essential (primary) hypertension chronic History of coronary artery stent placement May chronic History of loop recorder May 05, 2019 chronic Hyperlipidemia chronic Paroxysmal atrial fibrillation [facility] Work Phone: 1(882) 455-557610-19-2012 Evaluation note* Diagnosis Onset Date Resolution Status Aortic regurgitation acute Fatigue acute Essential (primary) hypertension chronic History of coronary artery stent placement May chronic History of loop recorder May 05, 2019 chronic Hyperlipidemia chronic Paroxysmal atrial fibrillation [facility] Work Phone: 1(926) 496-599510-19-2012 Evaluation note* Diagnosis Onset Date Resolution Status Admit Date Aortic regurgitation acute Octo 2024 2:43pm Essential (primary) hypertension chronic May 25 2:43pm History of coronary artery stent placement May 31, 2012 chronic May 25, 2025 2:43pm History of loop recorder May 05, 2019 c hronic May 25, 2025 2:43pm Hyperlipidemia chronic May 252024 2:43pm Paroxysmal atrial fibrillation chronic May 25 2:43pm [facility] Work Phone: Discharge summary Author Britt Guthrie [facility] Note Date/Time November 29, 2024 7:4 8am [facility] Medical Records Department [address] [place] [place] [address] Transfer to [facility] MR#: [id number] Acct: [id number] Name: RADHA MAYERS Rep #:[id number] : 1935 89 From: Britt Guthrie MD PCP: Dr. Rehan Lucero, DO Status:ADM SUZIE Certification of patient admission REQUIRED AT TIME OF ADMISSION. I CERTIFY THAT POST-HOSPITAL ECF SERVICES ARE REQUIRED TO BE GIVEN ON AN IN-PATIENT BASIS BECAUSE OF THE ABOVE NAMED PATIENT'S NEED FOR SENIOR CARE CARE ON A CONTINUING BASIS FOR THE [...] Care Provider: Rehan Lucero Consulting Providers: Aguilar aGle Instructions Patient Instructions: ED Fracture, Clavicle Discharge [...] Prolia 60 mg/mL syringe 60 mg subcut [id number] pantoprazole 40 mg tablet,delayed release (DR/EC) 40 [...] in before D/C Order can be placed): Jail Facility 11/29/24 0748 <Electronically signed by Britt Guthrie MD> Cosigner Signature (if applicable): CC: Dr. Aguilar Gale DO; Dr. Rehan Lucero DO ~ [facility] Work Phone: Evaluation + Plan note Future Appointments Appointment Date:12/20/2021 01:30:00 PM Scheduled Provider:REHAN LUCERO DO Location:[facility] Appointment Type:[facility] Future Scheduled Tests Radiology* BD Bone Density DEXA Axial Skeleton 06/21/21 [facility] Evaluation + Plan note Future Appointments Appointment Date:12/20/2021 01:30:00 PM Scheduled Provider:REHAN LUCERO DO Location:[facility] Appointment Type:[facility] Evaluation + Plan note Future Appointments Appointment Date:08/16/2021 04:30:00 PM Scheduled Provider:REHAN LUCERO DO Location:[facility] Appointment Type:[facility] ED Follow Up Appointment Date:12/20/2021 01:30:00 PM Scheduled Provider:REHAN LUCERO DO Location:[facility] Appointment Type:[facility] Evaluation + Plan note Future Appointments Appointment Date:09/06/2021 05:00:00 PM Scheduled Provider:CT DAWN DO Location:[facility] Appointment Type:PC OV Follow Up Appointment Date:12/20/2021 01:30:00 PM Scheduled Provider:REHAN LUCERO DO Location:[facility] Appointment Type:PC OV Future Scheduled Tests Radiology* XR Chest 2 Views (PA & Lateral) 08/26/21 [facility] Evaluation + Plan note Future Appointments Appointment Date:09/06/2021 05:00:00 PM Scheduled Provider:CT DAWN DO Location:[facility] Appointment Type:PC OV Follow Up Appointment Date:12/20/2021 01:30:00 PM Scheduled Provider:REHAN LUCERO DO Location:[facility] Appointment Type:PC OV Future Scheduled Tests Laboratory* Basic Metabolic Panel 09/02/21 Radiology* XR Chest 2 Views (PA & Lateral) 08/26/21 [facility] Evaluation + Plan note Future Appointments Appointment Date:09/28/2021 01:00:00 PM Scheduled Provider:REHAN LUCERO DO Location:[facility] Appointment Type:PC OV Appointment Date:12/20/2021 01:30:00 PM Scheduled Provider:REHAN LUCERO DO Location:[facility] Appointment Type:PC OV Future Scheduled Tests Radiology* XR Chest 2 Views (PA & Lateral) 08/26/21 [facility] Evaluation + Plan note Future Appointments Appointment Date:06/19/2022 02:45:00 PM Scheduled Provider:REHAN LUCERO DO Location:[facility] Appointment Type:PC OV Future Scheduled Tests Radiology* XR Chest 2 Views (PA & Lateral) 08/26/21 [facility] Evaluation + Plan note Future Appointments Appointment Date:06/19/2022 02:45:00 PM Scheduled Provider:REHAN LUCERO DO Location:[facility] Appointment Type:PC OV Future Scheduled Tests Radiology* XR Chest 2 Views (PA & Lateral) 08/26/21 * XR Spine Cervical AP/LAT 02/22/22 [facility] Evaluation + Plan note Future Appointments Appointment Date:07/25/2022 01:30:00 PM Scheduled Provider:REHAN LUCERO DO Location:[facility] Appointment Type:PC OV Future Scheduled Tests Radiology* XR Chest 2 Views (PA & Lateral) 08/26/21 * XR Spine Cervical AP/LAT 02/22/22 [facility] Evaluation + Plan note Future Appointments Appointment Date:01/25/2023 02:00:00 PM Scheduled Provider:REHAN LUCERO DO Location:[facility] Appointment Type:PC OV Future Scheduled Tests Radiology* XR Spine Cervical AP/LAT 02/22/22 [facility] Evaluation + Plan note Future Appointments Appointment Date:05/18/2023 03:00:00 PM Scheduled Provider:REBECA GARDINER Location:[facility] Appointment Type:PC OV Appointment Date:07/24/2023 02:00:00 PM Scheduled Provider:REHAN LUCERO DO Location:[facility] Appointment Type:PC OV Follow Up Future Scheduled Tests Laboratory* Potassium Level 05/11/23 [facility] Evaluation + Plan note Future Appointments Appointment Date:05/18/2023 03:00:00 PM Scheduled Provider:REBECA GARDINER Location:[facility] Appointment Type:PC OV Appointment Date:07/24/2023 02:00:00 PM Scheduled Provider:REHAN LUCERO DO Location:[facility] Appointment Type:PC OV Follow Up [facility] Evaluation + Plan note Future Appointments Appointment Date:07/31/2023 11:30:00 AM Scheduled Provider:REHAN LUCERO DO Location:[facility] Appointment Type:PC OV Follow Up [facility] Evaluation + Plan note Future Appointments Appointment Date:01/29/2024 11:30:00 AM Scheduled Provider:REHAN LUCERO DO Location:[facility] Appointment Type:PC OV Follow Up [facility] Evaluation + Plan note Future Appointments Appointment Date:07/29/2024 11:30:00 AM Scheduled Provider:REHAN LUCERO DO Location:[facility] Appointment Type:PC OV [facility] Evaluation + Plan note Future Appointments Appointment Date:03/19/2025 12:40:00 PM Scheduled Provider:STEPHANIE ESPITIA DO Location:[facility] Appointment Type:PC OV Future Scheduled Tests Laboratory* Thyroid Stimulating Hormone 07/29/24 * Lipid Profile 07/29/24 * Albumin/Creatinine Ratio, Random Urine 07/29/24 * Complete Metabolic Panel 07/29/24 [facility] Evaluation + Plan note Future Appointments Appointment Date:06/19/2025 03:00:00 PM Scheduled Provider:STEPHANIE ESPITIA DO Location:[facility] Appointment Type:[facility] Future Scheduled Tests Laboratory* Thyroid Stimulating Hormone 07/29/24 * Lipid Profile 07/29/24 * Albumin/Creatinine Ratio, Random Urine 07/29/24 * Complete Metabolic Panel 07/29/24 [facility] Evaluation noteNo assessment information available [facility] Work Phone: Hospital course Narrative No data available for this section [facility] Hospital Discharge instructions No data available for this section [facility] Progress note No data available for this section [facility] Reason for referral (narrative)No reason for referral information availableMccullough-[facility] Work Phone: Summary Purpose Family History Relationship Condition Age at Onset Recorded Date/T marina father Cardiac disease Unknown Coronary artery disease Unknown mother Cardiac disease Unknown Diabetes mellitus Unknown Cerebrovascular accident (CVA) Unknown Advance Directives Advance Directive Response Recorded Date/ Time Advance Directives Yes April 7:07am Living Will No January 10, 2021 4 :36pm Power of Picture Painter No January 10, 2021 4:36pm Advance Directive Response Recorded Date/ Time Advance Directives on File Yes October 30, 2022 7:05am Name of Medical Power of Picture Painter Juli Costa- Daughter October 30, 2022 7:05am Advance Directives Yes October 30, 023 7:05am Living Will Yes October 30, 2022 7:05am Power of Picture Painter Yes October 30 7:05am Advance Directive Response Recorded Date/ Time Advance Directives on File Yes October 30, 2022 7:05am Name of Medical Power of Picture Painter Juli Costa- Daughter October 30, 2022 7:05am Advance Directives Yes October 30 023 7:05am Living Will No January 02, 2023 1 0:28pm Power of Picture Painter No January 02, 2023 10:28pm Advance Directive Response Recorded Date/ Time Advance Directives Yes October 30 7:05am Living Will No January 02, 2023 1 0:28pm Power of Picture Painter No January 02, 2023 10:28pm Advance Directive Response Recorded Date/ Time Advance Directives Yes October 30 023 7:05am Living Will Yes November 27, 2023 8:22am Power of Picture Painter Yes November 26 8:22am Name of Medical Power of Picture Painter DAUGHTER November 27, 2023 8:22am Advance Directive Response Recorded Date/ Time Name of Medical Power of Picture Painter DAUGHTER November 27, 2023 8:22am Advance Directives Yes October 30 023 7:05am Living Will Yes November 27, 2023 8:22am Power of Picture Painter Yes November 26 8:22am Advance Directive Response Recorded Date/ Time Living Will Yes October 06 12:10am Do you have a Healthcare Pow er of Picture Painter? Yes October 06, 2024 12:10am Name of Medical Power of Picture Painter Shin Costa October 06, 2024 12:10am Living Will Yes October 06 2:19pm Do you have a Healthcare Pow er of Picture Painter? Yes October 06, 2024 2:19pm Name of Medical Power of Picture Painter daughter October 06, 2024 2:19pm Advance Directives Yes October 30 7:05am Advance Directive Response Recorded Date/ Time Living Will Yes February 17, 2024 2 :12pm Do you have a Healthcare Power of Picture Painter? Yes February 17, 2024 2:12pm Living Will Yes October 06 025 12:10am Do you have a Healthcare Power of Picture Painter? Yes October 06, 2024 12:10am Name of Medical Power of Picture Painter Shin Joinersharlalaura October 06, 2024 12:10am Living Will Yes October 06 025 2:19pm Do you have a Healthcare Power of Picture Painter? Yes October 06, 2024 2:19pm Name of Medical Power of Picture Painter daughter October 06, 2024 2:19pm Living Will Yes November 27, 2024 5:56pm Do you have a Healthcare Power of Picture Painter? Yes November 27, 2024 5:56pm Name of Medical Power of Picture Painter Otoniel Burks and Juli Costa November 27, 2024 5:56pm Advance Directives Yes October 30 023 7:05am Advance Directive Response Recorded Date/ Time Living Will Yes February 17, 2024 2 :12pm Do you have a Healthcare Power of Picture Painter? Yes February 17, 2024 2:12pm Living Will Yes October 06 12:10am Do you have a Healthcare Power of Picture Painter? Yes October 06, 2024 12:10am Name of Medical Power of Picture Painter Shin Costa October 06, 2024 12:10am Living Will Yes October 06 025 2:19pm Do you have a Healthcare Power of Picture Painter? Yes October 06, 2024 2:19pm Name of Medical Power of Picture Painter daughter October 06, 2024 2:19pm Living Will Yes November 27, 2024 10:41pm Do you have a Healthcare Power of Picture Painter? Yes November 27, 2024 10:41pm Name of Medical Power of Picture Painter Otoniel Burks and Juli Costa November 27, 2024 10:41pm Advance Directives Yes October 30 023 7:05am Advance Directive Response Recorded Date/ Time Advance Directives Yes October 30 023 7:05am Chief Complaint and Reason for Visit Chief Complaint Remote ILR f/u 6 M FU xray Reason for Visit History of loop yuan rder Paroxysmal atrial fibrillation Syncope Atherosclerosis of coronary artery of [place] heart without angina pectoris Chronic combined systolic [...] [facility] Apr 2024 7:46am SENIOR CARE LAB WORK December 01, 2024 5 :00am [...] section and content) DATE CREATED AUTHOR 02/18/2021 [facility] DATE CREATED AUTHOR AUTHOR'S ORGANIZ ATION 02/11/2024 [facility] ([place]) DATE CREATED AUTHOR AUTHOR'S ORGANIZ ATION 03/25/2025 [facility] DATE CREATED AUTHOR AUTHOR'S ORGANIZ ATION 05/26/2025 [facility] Goals (unrecognized section and content) Goals may be documented in a n alternate section Care Team (unrecognized sect ion and content) Care Team Personnel Name: Desean Ryan Clerk Stephanie PT Position: P3 Scheduling - Carpenter Repairer Advanced Member Role: Other Name: REHAN LUCERO DO Position: P4 Physician - Primary Care Med Service: Active Provider Member Role: Primary Care Physician Address: Address: [address] [place] [address] Care Team Related Persons Name: LUZ COSTA Name: OTONIEL BURKS Name: DAVE BURKS Name: DAVE BURKS Care Team Personnel Name: Desean Ryan Clerk Stephanie PT Position: P3 Scheduling - Carpenter Repairer Advanced Member Role: Other Name: REHAN LUCERO DO Position: P4 Physician - Primary Care Med Service: Active Provider Member Role: Primary Care Physician Address: Address: [address] [place] [address] Care Team Related Persons Name: LUZ COSTA Name: OTONIEL BURKS Name: DAVE BURKS Name: DAVE BURKS Care Team Personnel Name: Connor Field Sales Specialist Stephanie PT Position: P3 Scheduling - Carpenter Repairer Advanced Member Role: Other Name: REHAN LUCERO DO Position: P4 Physician - Primary Care Med Service: Active Provider Member Role: Primary Care Physician Address: Address: [address] [place] [address] Care Team Related Persons Name: LUZ COSTA Name: OTONIEL BURKS Name: DAVE BURKS Name: DAVE BURKS Care Team Personnel Name: Connor Field Sales Specialist Stephanie PT Position: P3 Scheduling - Carpenter Repairer Advanced Member Role: Other Name: REHAN LUCERO DO Position: P4 Physician - Primary Care Med Service: Active Provider Member Role: Primary Care Physician Address: Address: [address] [place] [address] Care Team Related Persons Name: LUZ COSTA Name: OTONIEL BURKS Name: DAVE BURKS Name: TRISTON BURKSMY Care Team Personnel Name: Connor, Field Sales Specialist Stephanie PT Position: P3 Scheduling - Carpenter Repairer Advanced Member Role: Other Name: REHAN LUCERO DO Position: P4 Physician - Primary Care Member Role: Primary Care Physician Address: Address: [address] [place] [address] Care Team Related Persons Name: LUZ COSTA Name: OTONIEL BURKS Name: DAVE BURKS Name: DAVE BURKS Care Team Personnel Name: Connor, Field Sales Specialist Stephanie PT Position: P3 Scheduling - Carpenter Repairer Advanced Member Role: Other Name: REHAN LUCERO DO Position: P4 Physician - Primary Care Member Role: Primary Care Physician Address: Address: [address] [place] [address] Name: MARITZA PAIGE MD Position: ED Physician Address: Address: [facility] [address] [place] [id number] Name: AGUSTINA MILES DO Position: ED Physician Member Role: Attending Physician Address: Address: [facility] [address] [place] [id number] Care Team Related Persons Name: LUZ COSTA Name: OTONIEL BURKS Name: DAVE BURKS Name: DAVE BURKS Care Team Personnel Name: Connor, Field Sales Specialist Stephanie PT Position: P3 Scheduling - Carpenter Repairer Advanced Member Role: Other Name: REHAN LUCERO DO Position: P4 Physician - Primary Care Member Role: Primary Care Physician Address: Address: [address] [place] [address] Care Team Related Persons Name: LUZ COSTA Name: OTONIEL BURKS Name: DAVE BURKS Name: DAVE BURKS Care Teams (unrecognized sec tion and content) Team Status: Active Member Role Status Dates Dr. Rehan Lucero DO Family Provider Active Dr. Rehan Lucero DO Primary Care Provider Active Team Status: Inactive Member Role Status Dates Dr. Rehan Lucero DO Primary Care Provider, Referri ng Provider Active Autumn Haas PRODUCTION MACHINE TENDER, PRODUCTION MACHINE TENDER-C Attending Provider Active Team Status: Inactive Member [...] Primary Care Provider Active Scottie Kim NP, PRODUCTION MACHINE TENDER-C Attending Provider Active Dr. Diana Valera , Other Provider Active Team Status: Inactive Member Role Status Dates Dr. Rehan Lucero DO Primary Care Provider Active Ayala Stock PRODUCTION MACHINE TENDER-C Attending Provider Active Team Status: Inactive Member Role Status Dates Dr. Rehan Lucero DO Primary Care Provider Active Dr. Braydon Nathan DO Emergency Provider Active Team Status: Active Member Role Status Dates Dr. Rehan Lucero DO Primary Care Provider Active Autumn Haas PRODUCTION MACHINE TENDER, PRODUCTION MACHINE TENDER-C Attending Provider, Referring P rovider Active Team Status: Inactive Member Role Status Dates Dr. Rehan Lucero DO Primary Care Provider Active Dr. Braydon Nathan DO Attending Provider, Emergency P rovider Active Team Status: Inactive Member Role Status Dates Dr. Rehan Lucero DO Primary Care Provider Active Autumn Haas PRODUCTION MACHINE TENDER, PRODUCTION MACHINE TENDER-C Attending Provider, Referring P rovider Active Team [...] End: May 25, 2025 Scottie Kim NP, PRODUCTION MACHINE TENDER-C Attending physician Active Start: May 25, 2025 [...] BE BASED ON THE PRIMARY CLINICAL RECORDS. [employer] [facility]. provides no warranty or guarantee of the accuracy or completeness of information in this document.
[2025-08-02 20:30] VITALS: BP 152/86; PULSE 83; RESP 22; TEMP 36.8; O2SAT 99
[2025-08-02 20:44] VITALS: BMI 22.4
--- NOTE | 2025-08-02 20:45 | ECHOD_ITS ---
Reason For Study Reason For Study: Syncope Procedure This was a 2D Doppler, Color Flow transthoracic echocardiogram. The study was technically difficult. Exam performed portable in patient room. Left Ventricle Normal LV size. Normal left ventricular thickness. The estimated ejection fraction is 55???60 %. Normal diastology for age. Right Ventricle Normal right ventricle. Normal systolic function. Atria The left and right atria are normal. Mitral Valve Mild diffuse mitral valve thickening. Mild mitral annular calcification. Mild mitral valve stenosis. Mild-Moderate (1- 2+) mitral valve insufficiency. Tricuspid Valve Mild diffuse thickening of the tricuspid valve. There is no tricuspid stenosis. Moderate (2+) tricuspid valve insufficiency. Aortic Valve Trisinus/trileaflet aortic valve. There is no aortic stenosis. Mild-Moderate (1- 2+) aortic valve insufficiency. Pulmonic Valve Normal pulmonic valve. Mild (1+) pulmonic valve insufficiency. Great Vessels Ascending aorta normal size measured at 3.2 cm. IVC normal size with normal respiratory collapse. Pericardium/Pleural No pericardial effusion. MMode/2D Measurements & Calculations LVIDd: 4.3 cm IVSd: 0.93 cm Ao root diam: 3.5 cm LVIDs: 2.8 cm LVPWd: 0.89 cm RVDd: 3.8 cm FS: 35.7 % LAV(MOD-bp): 36.2 ml LVAd ap4: 20.6 cm2 SV(MOD-sp4): 35.1 ml LAV(MOD-bp) Indexed: 25.4 ml/m2 LVLd ap4: 5.7 cm SI(MOD-sp4): 24.6 ml/m2 LAV(MOD-sp2): 36.8 ml EDV(MOD-sp4): 59.6 ml LAV(MOD-sp4): 34.3 ml EDV(sp4-el): 63.0 ml LVAs ap4: 11.9 cm2 LVLs ap4: 4.6 cm ESV(MOD-sp4): 24.5 ml ESV(sp4-el): 25.7 ml EF(MOD-sp4): 58.9 % EF(sp4-el): 59.2 % SV(sp4-el): 37.3 ml LA A4 area: 15.3 cm2 LA dimension(2D): 3.0 cm RA A4 area: 14.8 cm2 TAPSE: 2.3 cm Time Measurements MV dec time: 0.24 sec Doppler Measurements & Calculations MV E max eusebio: 86.5 cm/sec Lat Peak E' Eusebio: 6.0 cm/sec Med Peak E' Eusebio: 4.1 cm/sec MV A max eusebio: 162.6 cm/sec E/E' lat: 14.4 E/E' med: 20.9 MV E/A: 0.53 MV V2 max: 155.1 cm/sec MV P1/2t max eusebio: 91.3 cm/sec Ao V2 max: 125.4 cm/sec MV max P.6 mmHg MV P1/2t: 76.4 msec Ao max P.3 mmHg MV V2 mean: 75.2 cm/sec Ao V2 mean: 86.7 cm/sec MV mean P.8 mmHg MV dec slope: 350.4 cm/sec2 Ao mean P.5 mmHg MV V2 VTI: 32.0 cm MVA(P1/2t): 2.9 cm2 Ao V2 VTI: 28.7 cm AV (velocity ratio): 0.72 AI max eusebio: 480.4 cm/sec LV V1 max: 106.3 cm/sec PA V2 max: 75.3 cm/sec AI max P.5 mmHg LV V1 max P.5 mmHg PA V2 mean: 51.1 cm/sec LV V1 mean P.0 mmHg AI dec slope: 322.7 cm/sec2 LV V1 mean: 64.4 cm/sec AI P1/2t: 436.0 msec LV V1 VTI: 20.8 cm TR max eusebio: 317.0 cm/sec TR max P.2 mmHg ECHO/Echo Complete Interpretation Summary The estimated ejection fraction is 55???60 %. Normal LV size. Normal left ventricular thickness. Normal diastology for age. Mild-Moderate (1-2+) mitral valve insufficiency. Moderate (2+) tricuspid valve insufficiency. Mild-Moderate (1-2+) aortic valve insufficiency. Mild (1+) pulmonic valve insufficiency. IVC normal size with normal respiratory collapse Ordering Physician: Aiden Briones Performed By: Geovanny Cruz RCS
[2025-08-02 20:55] LABS: Troponin T High Sens 2 HR 16 ng/L (<=14)
[2025-08-02] MEDS: 0.9% Normal Saline (1000mL) 1,000 ML 100 ML IV (20:59)
[2025-08-02 21:02] VITALS: BP 138/70; PULSE 92; RESP 18; TEMP 36.8; O2SAT 96
[2025-08-02 22:58] VITALS: BP 138/88; PULSE 82
[2025-08-02 23:16] LABS: Troponin T High Sens 4 HR 16 ng/L (<=14)
[2025-08-03 03:15] VITALS: BP 146/71; PULSE 84; RESP 18; TEMP 36.8; O2SAT 97
[2025-08-03 04:58] LABS: Prothrombin Time (Protime)PT. 15.4 SECONDS (11.7-14.9)
[2025-08-03 05:13] LABS: Anion Gap 8 (5-15); BUN 17 mg/dL (4-19); BUN/Creat Ratio 14.7 RATIO (10-20); Calcium,Total 8.1 mg/dL (7.6-11.0); Carbon Dioxide 24.9 mmol/L (21.0-32.0); Chloride 107 mmol/L (98-108); Estimated Creatinine Clearance 24.94 ml/min (50-250); Glucose 97 mg/dL (70-99); Potassium 4.1 mmol/L (3.3-5.1)
[2025-08-03] MEDS: 0.9% Normal Saline (1000mL) 1,000 ML 100 ML IV (06:59)
--- NOTE | 2025-08-03 08:53 | PCM.PN.HOSP ---
Subjective Subjective Cannot recall events. Objective Data Objective Data Vital Signs: Vital Signs Temp Pulse Resp BP Pulse Ox O2 Del Method 36.8 C 84 18 146/71 H 97 Room Air 08/03/25 03:15 08/03/25 03:15 08/03/25 03:15 08/03/25 03:15 08/03/25 03:15 08/03/25 07:35 Oxygen Delivery Method Room Air Weight: 50.4 kg Body Mass Index (BMI) 22.4 Intake & Output: Intake and Output for Last 24 Hours 08/01/25 08/02/25 08/03/25 23:59 23:59 23:59 Intake Total 285 / 385 1200 / 1200 Output Total 500 / 500 Balance 285 / 385 700 / 700 Lab / Micro Data 08/02/25 18:23 08/03/25 04:05 Labs: Laboratory Results - last 24 hr 08/02/25 18:23: WBC 6.0, RBC 4.35, Hgb 12.8, Hct 39.4, MCV 90.6, MCH 29.4, MCHC 32.5, RDW Std Deviation 44.1 H, RDW Coeff of Gabi 13.3, Plt Count 187, MPV 11.5, Immature Gran % (Auto) 0.200, Neut % (Auto) 67.2, Lymph % (Auto) 19.2, Moody % (Auto) 11.9 H, Eos % (Auto) 1.3, Baso % (Auto) 0.2, Absolute Neuts (auto) 4.0, Absolute Lymphs (auto) 1.14, Nucleated RBC % 0, Sodium Cancelled, Potassium Cancelled, Chloride Cancelled, Carbon Dioxide Cancelled, Anion Gap Cancelled, BUN Cancelled, Creatinine Cancelled, Est GFR (MDRD) Non-Af Cancelled, BUN/Creatinine Ratio Cancelled, Glucose Cancelled, Calcium Cancelled, Troponin T High Sens 11 08/02/25 19:20: Urine Color Yellow, Urine Clarity Clear, Urine pH 6.0, Ur Specific Altair 1.015, Urine Protein 30 H, Urine Glucose (UA) Normal, Urine Ketones Negative, Urine Occult Blood 25 H, Urine Nitrite Positive H, Urine Bilirubin Negative, Urine Urobilinogen Normal, Ur Leukocyte Esterase 100 H, Urine RBC 0 SEEN, Urine WBC 0-5 SEEN, Ur Squamous Epith Cells 0-5 SEEN, Ur Transition Epith Cell 0-5 SEEN, Amorphous Sediment 1+, Urine Bacteria 1+, Urine Mucus 0 SEEN 08/02/25 19:22: Sodium 139, Potassium 4.8, Chloride 108, Carbon Dioxide 18.7 L, Anion Gap 13, BUN 19, Creatinine 1.13, Estim Creat Clear Calc 24.72 L, Est GFR (MDRD) Non-Af 47 L, BUN/Creatinine Ratio 16.7, Glucose 86, Calcium 7.7 08/02/25 20:28: Troponin T Hi Sens 2 Hr 16 H 08/02/25 22:50: Troponin T Hi Sens 4Hr 16 H 08/03/25 04:05: PT 15.4 H, INR 1.2, Sodium 139, Potassium 4.1, Chloride 107, Carbon Dioxide 24.9, Anion Gap 8, BUN 17, Creatinine 1.12, Estim Creat Clear Calc 24.94 L, Est GFR (MDRD) Non-Af 47 L, BUN/Creatinine Ratio 14.7, Glucose 97, Calcium 8.1 Micro: Microbiology 08/02/25 19:20 Urine, Catheterized Urine Culture - Preliminary Presumptive E. coli Radiography Diagnostic Testing: Radiology Impression Brain CT 08/02/25 18:40 IMPRESSION: No acute intracranial process. Reading Location: [facility] Cervical Spine CT 08/02/25 18:40 IMPRESSION: No acute cervical fracture or subluxations. Extensive multilevel degenerative changes of the cervical spine as above. Reading Location: [facility] Chest X-Ray 08/02/25 18:40 IMPRESSION: Pulmonary findings as above. Reading Location: [facility] Elbow X-Ray 08/02/25 18:40 IMPRESSION: No acute osseous abnormalities. Osteoarthrosis. Reading Location: [facility] Physical Exam Const alert and no apparent distress Constitutional Narrative: hard of hearing. up in chair. Resp normal respiratory effort, no retractions, no use of accessory muscles and clear to auscultation bilaterally Cardio regular rate, regular rhythm, S1 normal heart sound and S2 normal heart sound GI normal to inspection, nondistended, normoactive bowel sounds, soft to palpation and non-tender Neuro Sensorium / Orientation: awake and alert Psych affect normal Assessment & Plan Assessment/Plan (1) Syncope: PLAN: Plan Syncope/essential HTN/HLD/CAD status post stent suspect vasovagal, though, cannot rule out concusion. She did hit her head and imaging is negative for any type of injury Orthostatic vital signs were negative Continue with IV fluids She is on metoprolol 25 mg p.o. twice daily and Norvasc 2.5 mg p.o. twice daily as well as Aldactone 25 mg p.o. daily will monitor her blood pressure and adjust as necessary Will obtain an echocardiogram her last echo was in 05/03/2022 with an EF of 60% and a PASP of 34 mmHg recheck orthostatic vital Chronic medical conditions: Hypothyroidism? Stable? Continue with Synthroid GERD? Stable? Continue with PPI Anxiety/depression? Stable? Continue with her home medications Osteoporosis? Stable? Continue with Prolia DVT: SCDs Charges/Coding Visit Charges Inpatient E&M: 56635 Subs Hosp L2
[2025-08-03 09:00] VITALS: BP 158/90; PULSE 73; RESP 16; TEMP 36.7; O2SAT 97
[2025-08-03 09:12] VITALS: PULSE 74
[2025-08-03] MEDS: Aspirin E.C. 81 MG Tablet PO (09:13)
[2025-08-03 14:52] VITALS: BP 119/64; BP 130/78; BP 137/77; PULSE 78; PULSE 82; PULSE 89; RESP 17; TEMP 36.6; O2SAT 96
[2025-08-03 20:45] VITALS: BP 163/78; PULSE 78; RESP 18; TEMP 36.8; O2SAT 98
[2025-08-03 21:39] VITALS: BP 163/78; PULSE 78
[2025-08-04 04:00] VITALS: BP 142/61; PULSE 73; RESP 18; TEMP 36.7; O2SAT 96
[2025-08-04] MEDS: 0.9% Normal Saline (250mL Bag) 250 ML 15 ML IV (06:22)
--- NOTE | 2025-08-04 08:04 | PN.HOSP_ITS ---
Subjective Subjective Feeling well overall. Complaining of pain in her shoulder since the fall. Objective Data Objective Data Vital Signs: Vital Signs Temp Pulse Resp BP Pulse Ox O2 Del Method 36.7 C 73 18 142/61 H 96 Room Air 08/04/25 04:00 08/04/25 04:00 08/04/25 04:00 08/04/25 04:00 08/04/25 04:00 08/04/25 04:00 Oxygen Delivery Method Room Air Weight: 50.4 kg Body Mass Index (BMI) 22.4 Intake & Output: Intake and Output for Last 24 Hours 08/02/25 08/03/25 08/04/25 23:59 23:59 23:59 Intake Total 285 / 385 2610 / 2610 Output Total 1050 / 1650 600 / 600 Balance 285 / 385 1560 / 960 -600 / -600 Lab / Micro Data 08/02/25 18:23 08/03/25 04:05 Micro: Microbiology 08/02/25 19:20 Urine, Catheterized Urine Culture - Preliminary Presumptive E. coli Radiography Diagnostic Testing: Radiology Impression Echocardiogram 08/02/25 20:45 Interpretation Summary The estimated ejection fraction is 55???60 %. Normal LV size. Normal left ventricular thickness. Normal diastology for age. Mild-Moderate (1-2+) mitral valve insufficiency. Moderate (2+) tricuspid valve insufficiency. Mild-Moderate (1-2+) aortic valve insufficiency. Mild (1+) pulmonic valve insufficiency. IVC normal size with normal respiratory collapse Ordering Physician: Aiden Briones Performed By: Geovanny Cruz RCS Physical Exam Const alert and no apparent distress HEENT head/scalp atraumatic and moist oral mucous membranes Resp normal respiratory effort, no retractions, no use of accessory muscles and clear to auscultation bilaterally Cardio regular rate, regular rhythm, S1 normal heart sound and S2 normal heart sound GI normal to inspection, nondistended, normoactive bowel sounds, soft to palpation, non-tender and non-distended Extremity Extremity Narrative: Shoulders bilaterally tender to palpation but good active and passive range of motion. Empty can test bilaterally was intact. Assessment & Plan Assessment/Plan (1) Syncope: PLAN: Plan Syncope/essential HTN/HLD/CAD status post stent * suspect vasovagal, though, cannot rule out concussion. * She did hit her head and imaging is negative for any type of injury * Orthostatic vital signs were negative * She is on metoprolol 25 mg p.o. twice daily and Norvasc 2.5 mg p.o. twice daily as well as Aldactone 25 mg p.o. daily will monitor her blood pressure and adjust as necessary * Echo shows an EF 55-60%. * recheck orthostatic vital UTI: * presumptive E. coli. On CTX * Culture shows that is pansensitive. Will transition over to nitrofurantoin. Chronic medical conditions: * Hypothyroidism? Stable? Continue with Synthroid * GERD? Stable? Continue with PPI * Anxiety/depression? Stable? Continue with her home medications * Osteoporosis? Stable? Continue with Prolia DVT: SCDs Disposition: Pending therapy evaluation. Charges/Coding Visit Charges Inpatient E&M: 39309 Subs Hosp L2
[2025-08-04 08:45] VITALS: BP 176/89; PULSE 92; RESP 14; TEMP 36.2; O2SAT 99
[2025-08-04 08:48] VITALS: PULSE 92
[2025-08-04] MEDS: Aspirin E.C. 81 MG Tablet PO (08:48)
--- NOTE | 2025-08-04 13:37 | CASEMGMT ---
MALCOM MILNER Assessment Face to Face with patient for initial transition planning/care coordination assessment. MALCOM MILNER introduced self and role at [facility], pt voices understanding. Pt is A&Ox4 and is resting comfortably in bed and is calm. Care providers, pharmacy, and demographics verified. Admitting dx: Syncope LACE Strata: 2 PCP: Stephanie Ochoa Specialists:Soto LLAMAS (Nephro) Preferred [facility]acy: [facility] Insurance: [facility] A/B, [employer] Prescription Benefit: Yes LNOK: Kristin (Dtr), Ghislaine (Dtr) Living Arrangements: Pt lives with her Dtr, Kristin, in a single story home with 3 steps to enter ADLs/IADLs: Pt states that she is indep at baseline but that she has been experiencing increased falls lately Transportation: Dtrs DME: Scale for her CHF, Medical alert system, Cane, FWW, Shower chair, grab bars HHC/SNF: Reports HH x 1 year ago but cannot recall the name of the agency. Reports hx at the [facility] Pt?s goal: TBD Plan: TBD. Anticipate SNF vs Home with HHC. Current 6-Click score is 12 and PT is pending. At this time, the pt states that she would prefer to go home at the time of DC but is open to SNF placement if warranted. Pt would like to work with therapy before making a decision. Inquired if the pt would like this typewriter assembly and parts inspector to discuss DC planning with the Dtr as well. Pt states that she would like to wait and see how she does first. Pt denies further questions or concerns at this time. Report given to PCU Care Management Team. Jose Ziegler RN, CM
[2025-08-04 14:20] VITALS: BP 135/85; PULSE 83; RESP 20; TEMP 36.7; O2SAT 98
--- NOTE | 2025-08-04 15:20 | DCINST_ITS ---
Discharge Instructions DC O2, CPAP, BIPAP needs Home O2 Discharge instructions: No Follow Up Care Test Results: Test results from this visit will be discussed in further detail at your follow- up appointment, if applicable. Discharge Plan Admission Admit Date/Time: 08/03/25 15:07 Primary Reason for Your Visit: UTI Attending Provider: De Arizmendi Primary Care Provider: Stephanie Ochoa Consulting Providers: Aiden Briones Discharge Orders/Prescriptions Prescriptions: New nitrofurantoin monohyd/m-cryst 100 mg Capsule 100 mg PO BID Qty: 10 0RF Continued aspirin [Adult Aspirin Regimen] 81 mg tablet,delayed release (DR/EC) 81 mg PO DAILY sertraline 50 mg tablet 50 mg PO DAILY loperamide [Imodium A-D] 2 mg capsule 2 mg PO Q6H PRN (Reason: Diarrhea) gabapentin 100 mg capsule 100 mg PO DAILY Rx Instructions: qod ibuprofen 400 mg tablet 400 mg PO TID PRN (Reason: pain) Prolia 60 mg/mL syringe 60 mg subcut [id number] amlodipine 5 mg tablet 2.5 mg PO BID pantoprazole 40 mg tablet,delayed release (DR/EC) 40 mg PO DAILY Patient Comments: TAKE 1 TABLET BY MOUTH EVERY MORNING BEFORE MEALS levothyroxine 100 mcg tablet 100 mcg PO DAILY tramadol 50 mg tablet 50 mg PO Q8H PRN (Reason: pain) 5 Days Qty: 15 0RF spironolactone 25 mg tablet 25 mg PO DAILY Qty: 90 3RF metoprolol tartrate 25 mg tablet 25 mg PO BID Qty: 180 3RF Referrals / Follow Up: Stephanie Ochoa DO [Primary Care Provider, Family Practice] - Within 2 Weeks Disposition Disposition (needs filled in before D/C Order can be placed): Home Health Service
--- NOTE | 2025-08-04 16:35 | DS.PCM_ITS ---
Providers Date of Admission: 08/03/25 Primary Care Physician: Dr. Stephanie Ochoa, DO Reason For Visit: SYNCOPE Diagnosis Discharge Diagnosis (1) Syncope: Status: Acute Code(s): R55 - Syncope and collapse Plan Syncope/essential HTN/HLD/CAD status post stent * suspect vasovagal, though, cannot rule out concussion. * She did hit her head and imaging is negative for any type of injury * Orthostatic vital signs were negative * She is on metoprolol 25 mg p.o. twice daily and Norvasc 2.5 mg p.o. twice daily as well as Aldactone 25 mg p.o. daily will monitor her blood pressure and adjust as necessary * Echo shows an EF 55-60%. * recheck orthostatic vital UTI: * presumptive E. coli. On CTX * Culture shows that is pansensitive. Will transition over to nitrofurantoin. Chronic medical conditions: * Hypothyroidism? Stable? Continue with Synthroid * GERD? Stable? Continue with PPI * Anxiety/depression? Stable? Continue with her home medications * Osteoporosis? Stable? Continue with Prolia DVT: SCDs Disposition: to home with home health care. Medications at Discharge Home Medications aspirin 81 mg tablet,delayed release (Adult Aspirin Regimen) 81 mg PO DAILY blood thinner 04/24/19 pantoprazole 40 mg tablet,delayed release 40 mg PO DAILY gerd 01/10/21 loperamide 2 mg capsule (Imodium A-D) 2 mg PO Q6H PRN Diarrhea 04/18/22 sertraline 50 mg tablet 50 mg PO DAILY mood 04/18/22 gabapentin 100 mg capsule 100 mg PO DAILY pain 12/07/23 levothyroxine 100 mcg tablet 100 mcg PO DAILY thyroid 02/17/24 spironolactone 25 mg tablet 25 mg PO DAILY water pill #90 tabs 07/14/24 denosumab 60 mg/mL subcutaneous syringe (Prolia) 60 mg subcut [id number] oa 11/26/24 ibuprofen 400 mg tablet 400 mg PO TID PRN pain 11/26/24 tramadol 50 mg tablet 50 mg PO Q8H PRN pain 5 days #15 tabs 11/29/24 metoprolol tartrate 25 mg tablet 25 mg PO BID heart #180 tabs 04/20/25 amlodipine 5 mg tablet 2.5 mg PO BID bp 05/25/25 nitrofurantoin monohydrate/macrocrystals 100 mg capsule 100 mg PO BID #10 caps 08/04/25 Weight / BMI Weight Weight: 50.4 kg Body Mass Index (BMI) 22.4 ABG / Lab / Microbiology Data 08/02/25 18:23 08/03/25 04:05 Microbiology: Microbiology 08/02/25 19:20 Urine, Catheterized Urine Culture - Final Presumptive E. coli D/C Instructions DC O2, CPAP, BIPAP Needs Home O2 Discharge instructions: No Meaningful Use Info Meaningful Use Meaningful Use Diagnoses (Choose all that apply): None applicable Discharge Plan Admission Admit Date/Time: 08/03/25 15:07 Primary Reason for Your Visit: UTI Attending Provider: De Arizmendi Primary Care Provider: Stephanie Ochoa Consulting Providers: Aiden Briones Discharge Orders/Prescriptions Prescriptions: New nitrofurantoin monohyd/m-cryst 100 mg Capsule 100 mg PO BID Qty: 10 0RF Continued aspirin [Adult Aspirin Regimen] 81 mg tablet,delayed release (DR/EC) 81 mg PO DAILY sertraline 50 mg tablet 50 mg PO DAILY loperamide [Imodium A-D] 2 mg capsule 2 mg PO Q6H PRN (Reason: Diarrhea) gabapentin 100 mg capsule 100 mg PO DAILY Rx Instructions: qod ibuprofen 400 mg tablet 400 mg PO TID PRN (Reason: pain) Prolia 60 mg/mL syringe 60 mg subcut [id number] amlodipine 5 mg tablet 2.5 mg PO BID pantoprazole 40 mg tablet,delayed release (DR/EC) 40 mg PO DAILY Patient Comments: TAKE 1 TABLET BY MOUTH EVERY MORNING BEFORE MEALS levothyroxine 100 mcg tablet 100 mcg PO DAILY tramadol 50 mg tablet 50 mg PO Q8H PRN (Reason: pain) 5 Days Qty: 15 0RF spironolactone 25 mg tablet 25 mg PO DAILY Qty: 90 3RF metoprolol tartrate 25 mg tablet 25 mg PO BID Qty: 180 3RF Referrals / Follow Up: Stephanie Ochoa DO [Primary Care Provider, Family Practice] - Within 2 Weeks Disposition Disposition (needs filled in before D/C Order can be placed): Home Health Service Charges/Coding Visit Charges Inpatient E&M: 12461 Disch Hosp
--- NOTE | 2025-08-04 16:35 | CASEMGMT ---
Addendum entered by Walter Grimaldo 08/05/25 10:30: 1224: 10:30 AM. Per Anitha @ [facility], they are able to accept pt, but SOC would not be Tues. She states she reached out to pt/daughter and notified them of same and that they were okay w/SOC on Tu. Original Note: MALCOM MILNER note: Discharge order is in. Per MALCOM Richardson, she has ambulated pt this afternoon w/use of walker and pt did well and wishes to discharge home. MALCOM MILNER to room. Pt sitting up in chair. She states she feels comfortable discharging home today and would like HHC. She initially stated she wishes to use the same HHC agency she had in the past when she dc'd home from [facility], but she does not remember name of agency. Call placed to Anitha @ [facility] to inquire if it was [facility]. Per Anitha, it was not, but she states, if pt wishes for a referral to be made w/[facility], they can review the referral and if they can accept pt the earliest they can see pt is Sunday for a SOC. Pt made aware. She states she would like a referral made to [facility] and declines wanting list of other [facility] options at this time. She was made aware or [facility] will f/u with her tomorrow re: referral and acceptance. She voices appreciation & denies having further discharge needs or concerns. Lexie COHN RN, CM
--- NOTE | 2025-08-10 12:18 | CASEMGMT ---
MALCOM MILNER received call from [facility], Called Pt to schedule SN initial visit. Pt not wanting to start services until next week.
== END 2025-08-04 18:24 | disposition home health service (06) | DRG 312 ==
LOC: ED 20:10 → PCU 20:19
PROVIDERS: Admitting Provider Family Medicine; Emergency Provider Emergency Medicine; PCP Student in an Organized Health Care Education/Training Program
DX: R55 Syncope and collapse (principal); N39.0 Urinary tract infection, site not specified; B96.20 Unspecified Escherichia coli [E. coli] as the cause of diseases classified elsewhere; I10 Essential (primary) hypertension; E03.9 Hypothyroidism, unspecified; F32.A Depression, unspecified; I48.0 Paroxysmal atrial fibrillation; M54.9 Dorsalgia, unspecified; K21.9 Gastro-esophageal reflux disease without esophagitis; M79.7 Fibromyalgia; I25.10 Atherosclerotic heart disease of native coronary artery without angina pectoris; E78.5 Hyperlipidemia, unspecified; S00.03XA Contusion of scalp, initial encounter; S51.012A Laceration without foreign body of left elbow, initial encounter; W19.XXXA Unspecified fall, initial encounter; F41.9 Anxiety disorder, unspecified; M25.512 Pain in left shoulder; M25.511 Pain in right shoulder; S50.02XA Contusion of left elbow, initial encounter; Y92.000 Kitchen of unspecified non-institutional (private) residence as the place of occurrence of the external cause; I49.1 Atrial premature depolarization; G89.29 Other chronic pain; M81.0 Age-related osteoporosis without current pathological fracture; Z95.5 Presence of coronary angioplasty implant and graft; Z86.718 Personal history of other venous thrombosis and embolism; Z79.899 Other long term (current) drug therapy; Z79.82 Long term (current) use of aspirin; Z79.890 Hormone replacement therapy
CPT/HCPCS: 36415; 70450; 71045; 72125; 73080; 80048; 81001; 84484; 85025; 85610; 87086; 87088; 87186; 93005; 93306; 99285; A4216